=== PATIENT | female | born 1970 | race Caucasian/White ===

== ENCOUNTER → 2017-12-06 15:47 | Outpatient (CLI) | payer OTHER, SELFPAY ==
[2017-12-06 16:34] LABS: Absolute Lymphocyte Count 2.27 X10^3/ul (0.83-4.51); Absolute Neutrophil Count 3.3 X10^3/uL (2.0-7.7); Basophil# 0.04 X10^3/uL; Basophil% 0.7 % (0-1); Eosinophil# 0.03 X10^3/uL; Eosinophils% 0.5 % (0-5); Hematocrit 38.9 % (37-47); Hemoglobin 12.6 g/dl (12.0-15.0); Lymphocyte # 2.27 X10^3/ul (4.0); Lymphocyte % 37.5 % (19-41); Mean Corp Hgb Conc 32.4 g/gl (32-36); Mean Corpuscular Hgb 31.2 pg (27.0-32.0); Mean Corpuscular Volume 96.3 fL (81-99); Monocyte# 0.37 X10^3/uL; Monocyte% 6.1 % (0-10); Neutrophil # 3.34 X10^3/uL (2.7-7.7); Neutrophil % 55.2 % (47-70); Platelet Count 364 K/mm3 (150-450); RBC Distribution Width CV 12.2 % (11.6-14.6); Red Blood Count 4.04 M/mm3 (4.2-5.4); White Blood Count 6.1 K/mm3 (4.4-11.0)
[2017-12-06 16:41] LABS: POSITIVE COUNT NO; POSITIVE DIFFERENTIAL NO; POSITIVE MORPHOLOGY NO
[2017-12-06 17:06] LABS: ALB/GLOB Ratio 1.1 RATIO (0.9-2.4); AST(SGOT) 22 U/L (15-37); Alanine Aminotransfer ALT/SGPT 24 U/L (13-56); Alkaline Phosphatase 84 U/L (45-117); Anion Gap 6 (5-15); BUN 14 mg/dL (7-18); BUN/Creat Ratio 23.6 RATIO (10-20); Calcium,Total 9.1 mg/dL (8.5-10.1); Chloride 105 mmol/L (98-107); Creatinine, Serum 0.59 mg/dL (0.55-1.02); EST Glomerular Filtration Rate 114 mL/min (>60); Est Glom Filt Rate - Afr Amer 138 mL/min (>60); Globulin 3.8 g/dL (2.2-4.2); Glucose 82 mg/dL (74-106); Potassium 4.1 mmol/L (3.5-5.1); Protein, Total 7.8 g/dL (6.4-8.2); Sodium Level 139 mmol/L (136-145); Thyroid Stim Hormone (TSH) 1.42 uIU/mL (0.358-3.74)
== END ==
PROVIDERS: Visit Provider Family Medicine Geriatric Medicine
DX: I10 Essential (primary) hypertension (principal)
CPT/HCPCS: 36415; 80053; 84443; 85025

== ENCOUNTER → 2017-12-22 13:32 | Outpatient (CLI) | payer OTHER, SELFPAY ==
[2017-12-22 14:31] LABS: Amphetamine Urine VISTA NEGATIVE (<1000 ng/mL); Barbiturate Urine VISTA NEGATIVE (< 200 ng/mL); Benzodiazepine Urine VISTA NEGATIVE (< 200 ng/mL); Cocaine Urine VISTA NEGATIVE (< 300 ng/mL); Ecstacy Urine VISTA NEGATIVE (< 500 ng/mL); Methadone Urine VISTA NEGATIVE (< 300 ng/mL); PCP Urine VISTA NEGATIVE (< 25 ng/mL); THC Urine VISTA NEGATIVE (< 50 ng/mL); Vista UDS pH Range 5
== END ==
PROVIDERS: Family Provider Family Medicine Geriatric Medicine; PCP Family Medicine Geriatric Medicine; Visit Provider Anesthesiology Pain Medicine
DX: F11.20 Opioid dependence, uncomplicated (principal)
CPT/HCPCS: 80307

== ENCOUNTER → 2018-01-05 17:21 | Outpatient (CLI) | payer OTHER, SELFPAY | PROVIDERS: Visit Provider Obstetrics & Gynecology | DX: Z12.4 Encounter for screening for malignant neoplasm of cervix (principal) | CPT/HCPCS: 88175; G0145 ==

== ENCOUNTER → 2018-06-12 14:29 | Outpatient (CLI) | payer OTHER, SELFPAY | PROVIDERS: Family Provider Family Medicine Geriatric Medicine; PCP Family Medicine Geriatric Medicine; Referring Provider Family Medicine Geriatric Medicine; Visit Provider Family Medicine Geriatric Medicine | DX: R53.83 Other fatigue (principal) | CPT/HCPCS: 36415; 80053; 84443; 85025 ==

== ENCOUNTER → 2018-09-26 13:37 | Outpatient (CLI) | payer OTHER, SELFPAY ==
[2018-01-05 13:05] VITALS: BMI 23.0
[2018-09-26 14:12] LABS: Amphetamine Urine VISTA NEGATIVE (<1000 ng/mL); Barbiturate Urine VISTA NEGATIVE (< 200 ng/mL); Benzodiazepine Urine VISTA NEGATIVE (< 200 ng/mL); Cocaine Urine VISTA NEGATIVE (< 300 ng/mL); Ecstacy Urine VISTA NEGATIVE (< 500 ng/mL); Methadone Urine VISTA NEGATIVE (< 300 ng/mL); PCP Urine VISTA NEGATIVE (< 25 ng/mL); THC Urine VISTA NEGATIVE (< 50 ng/mL); Vista UDS pH Range 5
== END ==
PROVIDERS: Family Provider Family Medicine Geriatric Medicine; PCP Family Medicine Geriatric Medicine; Referring Provider Anesthesiology Pain Medicine; Visit Provider Anesthesiology Pain Medicine
DX: F11.20 Opioid dependence, uncomplicated (principal)
CPT/HCPCS: 80307

== ENCOUNTER → 2018-12-07 13:21 | Outpatient (CLI) | payer OTHER, SELFPAY ==
[2018-01-05 13:05] VITALS: BMI 23.0
[2018-12-07 17:29] LABS: ALB/GLOB Ratio 1.1 RATIO (0.9-2.4); AST(SGOT) 36 U/L (15-37); Alanine Aminotransfer ALT/SGPT 35 U/L (13-56); Alkaline Phosphatase 91 U/L (45-117); Anion Gap 8 (5-15); BUN 23 mg/dL (7-18); BUN/Creat Ratio 36.5 RATIO (10-20); Calcium,Total 9.3 mg/dL (8.5-10.1); Chloride 105 mmol/L (98-107); Creatinine, Serum 0.63 mg/dL (0.55-1.02); EST Glomerular Filtration Rate 106 mL/min (>60); Est Glom Filt Rate - Afr Amer 128 mL/min (>60); Globulin 3.6 g/dL (2.2-4.2); Glucose 79 mg/dL (74-106); Potassium 3.9 mmol/L (3.5-5.1); Protein, Total 7.6 g/dL (6.4-8.2); Sodium Level 141 mmol/L (136-145); Thyroid Stim Hormone (TSH) 0.82 uIU/mL (0.358-3.74)
[2018-12-07 18:08] LABS: Hematocrit 38.1 % (37-47); Hemoglobin 12.6 g/dl (12.0-15.0); Mean Corp Hgb Conc 33.1 g/gl (32-36); Mean Corpuscular Hgb 31.7 pg (27.0-32.0); RBC Distribution Width CV 12.7 % (11.6-14.6); Red Blood Count 3.97 M/mm3 (4.2-5.4); White Blood Count 6.2 K/mm3 (4.4-11.0)
[2018-12-07 18:09] LABS: Absolute Lymphocyte Count 2.21 X10^3/ul (0.83-4.51); Absolute Neutrophil Count 3.6 X10^3/uL (2.0-7.7); Basophil# 0.04 X10^3/uL; Basophil% 0.6 % (0-1); Eosinophil# 0.07 X10^3/uL; Eosinophils% 1.1 % (0-5); Lymphocyte # 2.21 X10^3/ul (4.0); Lymphocyte % 35.6 % (19-41); Mean Platelet Vol. 9.8 fl (6.2-12.0); Monocyte# 0.26 X10^3/uL; Monocyte% 4.2 % (0-10); Neutrophil # 3.62 X10^3/uL (2.7-7.7); Neutrophil % 58.3 % (47-70); POSITIVE COUNT NO; POSITIVE DIFFERENTIAL NO; POSITIVE MORPHOLOGY NO; Platelet Count 375 K/mm3 (150-450)
== END ==
PROVIDERS: Family Provider Family Medicine Geriatric Medicine; Visit Provider Family Medicine Geriatric Medicine
DX: R53.83 Other fatigue (principal)
CPT/HCPCS: 36415; 80053; 84443; 85025

== ENCOUNTER → 2019-01-15 | Outpatient (CLI) | payer OTHER, SELFPAY ==
[2018-01-05 13:05] VITALS: BMI 23.0
== END | disposition home or self-care (01) ==
LOC: PSN 14:12
PROVIDERS: Family Provider Family Medicine Geriatric Medicine; PCP Family Medicine Geriatric Medicine; Referring Provider Family Medicine Geriatric Medicine; Visit Provider Family Medicine Geriatric Medicine
DX: M79.10 Myalgia, unspecified site (principal)
CPT/HCPCS: 87633

== ENCOUNTER → 2019-12-10 14:05 | Outpatient (CLI) | payer OTHER, SELFPAY ==
[2019-10-26 13:18] VITALS: BMI 23.0
[2019-12-10 15:52] LABS: Absolute Lymphocyte Count 2.15 X10^3/uL (0.83-4.51); Absolute Neutrophil Count 2.3 X10^3/uL (2.0-7.7); Basophil# 0.07 X10^3/uL; Basophil% 1.4 % (0-1); Eosinophil# 0.03 X10^3/uL; Eosinophils% 0.6 % (0-5); Hematocrit 41.3 % (37-47); Hemoglobin 13.6 g/dL (12.0-15.0); Lymphocyte # 2.15 X10^3/ul (4.0); Lymphocyte % 44.5 % (19-41); Mean Corp Hgb Conc 32.9 g/dL (32-36); Mean Corpuscular Hgb 32.2 pg (27.0-32.0); Mean Corpuscular Volume 97.6 fL (81-99); Mean Platelet Vol. 10.6 fl (6.2-12.0); Monocyte# 0.32 X10^3/uL; Monocyte% 6.6 % (0-10); NRBC Flagged by Analyzer 0 % (0-5); Neutrophil # 2.25 X10^3/uL (2.7-7.7); Neutrophil % 46.7 % (47-70); Platelet Count 310 K/mm3 (150-450); RBC Distribution Width CV 12.1 % (11.6-14.6); RBC Distribution Width SD 43.3 fl (35.1-43.9); Red Blood Count 4.23 M/mm3 (4.2-5.4); White Blood Count 4.8 K/mm3 (4.4-11.0)
[2019-12-10 16:14] LABS: ALB/GLOB Ratio 1.1 RATIO (0.9-2.4); AST(SGOT) 28 U/L (15-37); Alanine Aminotransfer ALT/SGPT 34 U/L (13-56); Albumin, Serum 4.3 g/dL (3.2-5.0); Alkaline Phosphatase 89 U/L (45-117); Anion Gap 7 (5-15); BUN 11 mg/dL (7-18); BUN/Creat Ratio 19.2 RATIO (10-20); Calcium,Total 9.8 mg/dL (8.5-10.1); Chloride 102 mmol/L (98-107); Creatinine, Serum 0.57 mg/dL (0.55-1.02); EST Glomerular Filtration Rate 118 mL/min (>60); Est Glom Filt Rate - Afr Amer 143 mL/min (>60); Glucose 82 mg/dL (74-106); Potassium 3.9 mmol/L (3.5-5.1); Protein, Total 8.3 g/dL (6.4-8.2); Sodium Level 138 mmol/L (136-145); Thyroid Stim Hormone (TSH) 1.31 uIU/mL (0.358-3.74)
== END ==
PROVIDERS: PCP Family Medicine Geriatric Medicine; Visit Provider Family Medicine Geriatric Medicine
DX: R53.83 Other fatigue (principal)
CPT/HCPCS: 36415; 80053; 84443; 85025

== ENCOUNTER → 2019-12-21 09:40 | Outpatient (CLI) | payer OTHER, SELFPAY ==
[2019-10-26 13:18] VITALS: BMI 23.0
--- NOTE | 2019-12-21 09:49 | BI_ITS ---
MAMMOGRAPHY - BILATERAL SCREENING REASON FOR EXAM: Female, 49 years old. Routine annual screening examination. PERTINENT HISTORY: Aunt with breast cancer. TECHNIQUE: Digital bilateral breast tesfaye (3D mammographic acquisition) in the CC and MLO projections. 2-D mediolateral oblique (MLO) and craniocaudad (CC) views of both breasts were obtained. CAD: Full Field Digital Mammography with Computer Added Detection was performed. COMPARISON: Comparison is made with prior study dated February 12, 2013. FINDINGS: Breast Composition: There are scattered areas of fibroglandular density. There are no dominant masses or suspicious calcifications. No other significant abnormalities are identified. There has been no significant change since the prior study. BI/SCREEN MAMM (CAD) W/TESFAYE BILAT IMPRESSION: Stable bilateral screening mammogram. Yearly follow-up mammogram recommended. (A) ASSESSMENT CATEGORY: BIRADS Category 1: Negative. A letter regarding these results will be sent to the patient by the facility within 30 days. Approximately 10% of breast cancers are not detected by mammography. A normal mammogram should not delay biopsy of a clinically suspicious abnormality. [id number] Electronically Signed: Vidal Álvarez, at 12:42 EDT , Service support ,
== END ==
PROVIDERS: PCP Family Medicine Geriatric Medicine; Referring Provider Family Medicine Geriatric Medicine; Visit Provider Family Medicine Geriatric Medicine
DX: Z12.31 Encounter for screening mammogram for malignant neoplasm of breast (principal)
CPT/HCPCS: 77063; 77067

== ENCOUNTER 2020-02-08 09:51 | Day surgery (SDC) | payer OTHER, SELFPAY ==
[2020-01-18 08:33] VITALS: BMI 23.0
[2020-02-08] VITALS (7 sets, daily range): BP systolic 135–162; BP diastolic 88–97; PULSE 68–85; RESP 15–18; TEMP 36.6; O2SAT 99–100; BMI 25.0
--- NOTE | 2020-02-08 10:12 | HP.PCM_ITS ---
History of Present Illness Date of Admission: 02/08/20 The patient is a 49 year old F presents for a diagnostic colonoscopy due to positive Cologuard test. Patient was previously seen on a virtual office visit. Patient states she has bowel movements daily denies any blood in her stool, patient has never had a colonoscopy denies any family history of colon cancer. Patient denies any symptoms of reflux/GERD and denies any abdominal pain. Patient states that prep went well denies any blood in her stool. Past Medical/Surgical History - Planned Operation Planned Operative Procedure/s: COLONOSCOPY Date of Operative Procedure: 02/08/20 Permit Signed: Yes S.O.S: No Is This Patient Having a Total Joint: No - Previous Hospitalizations/Surgeries HX Hospitalizations: Yes HX of Surgeries: MICRODISCECTOMY 2002. BACK SURGERY 2004. PLATE IN CLAVICLE 2005, REMOVAL 2006. 2010 REMOVAL SOFT TISSUE MASS LEFT GROIN. 07/26/2016 LAPAROSCOPIC LEFT OVARIAN CYSTECTOMY, SALPING-OOPHORECTOMY LEFT. L ELBOW ARTHROSCOPY, LATERAL EPICONDRYLAR RELEASE 02/2017 Any Problems With Anesthesia: No You/Your Family Experience Fever (Hyperthermia) With Anes: No Cholinesterase deficiency: No - Cardiovascular Hx Chest Pain within Last 2 months: No Hx of Irregular Heartbeat and/or Afib: No Hx Heart Attack: No Hx Congestive Heart Failure: No Hx Rheumatic Fever: No Hx Hypertension: No Hx Internal Defibrillator: No Hx Pacemaker: No Hx Cardiac Catheterization: No Hx Cardiac Surgery/Stents/Etc.: No Hx Stress Test: No HX Edema: No Hx Pain in Legs when Walking/Leg Cramps: No - Respiratory Chronic Cough: No HX of Shortness of Breath: No Hoarseness: No Hx Chronic Obstructive Pulmonary Disease (COPD): No Hx Asthma: No Hx Emphysema: No Hx Sleep Apnea: No CPAP: No Hx Oxygen Use at Home: No Hx Respiratory Tract Infection/Cold (presently): No Do You Snore Loudly (louder than talking or can be heard): No Do You Often Feel Tired/ Fatigued/ Sleepy Dring Daytime?: No Has Anyone Observed You Stop Breathing During Sleep?: No Result (for STOP score): Negative Hx Smoking: Yes - QUIT SMOKING OCT 2015 Smoking Status: Former smoker - Gastrointestinal Hx Gastroesophageal Reflux: No Hx Gastrointestinal Disorders: No Hx Gastrointestinal Bleed: No Hx Ulcer: No Hx Hiatal Hernia: No Difficulty Chewing/Swallowing: No Recent Onset of Swallowing Problems: No Special diet followed at home: No Hx Unplanned Weight Loss of 20#: No HX Unplanned Weight Gain of 20#: No - Neurological Hx Seizures: No HX Syncope/Blackout Spells/Unconsciousness: No Hx CVA/Stroke: No Hx Transient Ischemic Attacks (TIA): No Hx Multiple Sclerosis: No Hx Parkinson's Disease: No Hx Head/Neck Injury: Yes - CONCUSSION PER HX,CERVICAL BULGING DISC Hx Headaches: No Hx Back Injury/Pain: Yes - DEGENERATIVE DISC, BULGE DISC, BACK SURGERY Recent Onset of Speech Difficulty: No Restless Legs: No Does patient have nerve stimulator: No - Blood Disorder Hx Leukemia: No Bleeding Tendencies: No Hx Deep Vein Thrombosis: No Hx High Cholesterol: No Blood Transmitted Disease: No Hx Hepatitis: No Hx Cirrhosis: No Hx Anemia: No Hx Blood Disorders: No - Reproduction : No Is Patient Lactating: No Hx Hysterectomy: No Hx Tubal Ligation: No Are You Post Menopause: Yes - Genitourinary Hx Renal Disease: No - Musculoskeletal Hx Arthritis: Yes Hx Rheumatoid Arthritis: No Hx Gout: No Recent Onset of an Orthopedic Problem: No - Endocrine Hx Diabetes: No Thyroid Disease: No Hx Steroid Therapy: Yes - PAIN MANAGEMENT - Psycho/Social Hx Substance Use: No Hx Alcohol Use: No Hx Anxiety: Yes - ON MED Hx Depression: No Mental Illness: No Hx Dementia: No - Miscellaneous Hx Cancer: No Recent Exposure to Contagious Disease: No Active MRSA: No Hx of C-Diff: No Any Loose Teeth: No Allergies cephalexin [From Keflex] Allergy (Verified 02/08/20 10:11) Rash - Discharge Is Pt Admitted From a [facility], or a Halfway: No Who Could Help: FATHER After D/C, Where Do you Plan to Go: Return Home - Physical Exam Vitals/I&O's: Body Mass Index (BMI) 23.0 General: Alert, Oriented x3, Cooperative, No apparent distress HEENT: Atraumatic Lungs: Normal air movement Cardiovascular: Regular rate Abdomen: Soft, Non Tender, Non-Distended Extremities: No clubbing, No cyanosis, No edema Neurological: Cranial nerves II-XII grossly intact Psych/Mental Status: Normal Affect Microbiology Past 72 Hours 02/07/20 11:35 Mucosa - Nasopharyngeal Coronavirus COVID-19 PCR - Final Assessment/Plan All Active Problems (Last Updated 01/18/20 @ 08:31 by Torrie Jaramillo) Endometriosis (Acute) Ovarian cyst (Acute) 49-year-old female with positive Cologuard Procedure Criteria Procedure Type: Elective Procedure Essential: No COVID Risk Discussion: The surgeon/proceduralist and patient have discussed in detail the risk of exposure to and/or potential harm posed by the COVID-19 virus with having a surgery/procedure at this time versus the risk of delaying the surgery/procedure. It is not possible to know either the risk of delaying the surgery or procedure or chance of getting an infection with perfect accuracy, but a joint decision was made between the patient and the surgeon/proceduralist to proceed at this time with the scheduled surgery/procedure as indicated on the consent form. Surgery Risks - Colonoscopy I discussed with the patient the risks of the procedure: Yes Risks Include but are not Limited To: Risks include but are not limited to: Bleeding, perforation requiring further surgery, inability to complete colonoscopy requiring barium enema. Patient no further questions this time.
[2020-02-08] MEDS: Lactated Ringers 1,000 ML 100 ML IV (10:20)
--- NOTE | 2020-02-08 11:00 | COLBX_PTH ---
PATIENT: FEDE HERZOG LOC: EN U#:[id number] AGE/SX: 49/F ROOM: RE02/08/[address]: Dr. Em Hazel MD : 1970 BED: DIS: 02/08/2020 SPEC #: [id number] RECD: 02/08/20 13:18 STATUS: FERCHO RENely #: [id number] LUDA: 02/08/20 11:[address]: Em Hazel DEPT: SURGICAL PATHOLOGY RECD BY: Fred Key ENTERED: 02/11/20 09:24 SP TYPE: COLON BX OTHR DR: Dr. Carrillo Driscoll MD Tissues: A - Appendix, NOS B - Descending colon Procedures: Surgery Specimen Level IV HEADER OPERATION: Colonoscopy (MAC) PRE-OP DIAGNOSIS: Positive Cologuard TISSUE SUBMITTED: A - Appendiceal orifice biopsy, B - Descending polyp MICROSCOPIC DIAGNOSIS A. Appendiceal orifice, biopsy: Fragments of tubular adenoma. Negative for malignancy. B. Descending colon polyp, biopsy: Tubular adenoma. SJ:moody 02/12/20 COMMENT Correlation with clinical, endoscopic findings and appropriate follow up are necessary. The results are reported to Dr. Hazel's office on 02/12/20 at 9:12 a.m. MICROSCOPIC DESCRIPTION Slides are reviewed. GROSS DESCRIPTION A - Received in fixative is one container labeled with the patient's name and designated Appendiceal orifice biopsy. The specimen consists of multiple irregular fragments of light crawford soft tissue that in aggregate measure 1.3 x 0.6 x 0.1 cm. The specimen is totally submitted in one cassette. B - Received in fixative is one container labeled with the patient's name and designated descending polyp. The specimen consists of one irregular fragment of light crawford soft tissue that measures 0.4 x 0.2 x 0.1 cm. The specimen is totally submitted in one cassette. / AM:moody 02/11/20 TC:1 CPT: 38112 x2
--- NOTE | 2020-02-08 11:28 | CT_ITS ---
STUDY: CT CHEST WITH CONTRAST REASON FOR EXAM: Female, 49 years old. MASS AT APPENDICEAL ORIF JOSE RADIATION DOSAGE (If Supplied By Facility): CTDIvol = ( 10.47 ) mGy, DLP = ( 1087.35 ) mGycm TECHNIQUE: Transaxial imaging was performed following intravenous administration of Oral and amp; IV GASTROGRAFIN and amp; 100ML ISOVUE 370. Individualized dose optimization techniques were used for this CT. COMPARISON: Comparison is made with prior study dated March 01, 2013. FINDINGS: Mild degree of the emphysematous changes. Stable minimal scarring in the anterior medial aspect of the right upper lobe. There is no demonstrated pleural abnormality. Normal heart and pericardium. Normal mediastinum. Normal hilar regions. Normal enhanced pulmonary arteries. Normal aorta arch and descending thoracic aorta. There are mild degenerative changes of the thoracic spine. There is no demonstrated abnormality of the visualized upper abdomen. CT/Chest WITH Contrast IMPRESSION: Stable minimal scarring in the medial aspect of the left upper lobe. Electronically Signed: Vidal Álvarez, at 15:07 EDT , Service support ,
--- NOTE | 2020-02-08 11:29 | CT_ITS ---
STUDY: CT ABDOMEN AND PELVIS WITH CONTRAST REASON FOR EXAM: Female, 49 years old. MASS AT APPENDICEAL ORIFICE RADIATION DOSAGE (If Supplied By Facility): CTDIvol = ( 10.47 ) mGy, DLP = ( 1087.35 ) mGycm TECHNIQUE: Transaxial images were obtained from the dome of the diaphragm to the symphysis pubis with oral contrast. Oral and amp; IV GASTROGRAFIN and amp; 100ML ISOVUE 370 was administered. Sagittal and coronal images were reconstructed. Individualized dose optimization techniques were used for this CT. COMPARISON: Comparison is made with prior examination dated June 30, 2016. FINDINGS: The visualized lung bases are unremarkable. The visualized portions of the heart are within normal limits. Normal liver. Normal gallbladder and extrahepatic biliary system. Normal spleen. Normal pancreas. Normal bilateral adrenal glands. Normal right kidney. Normal left kidney. Normal visualized stomach. Normal small intestine. Normal colon. The appendix is visualized and appears normal. There is scattered atherosclerotic calcification of the abdominal aorta, without a demonstrated aneurysm. Normal inferior vena cava. Normal retroperitoneum. Normal urinary bladder. Normal abdominal wall. Prior laminectomy and fusion at the L4-L5 level. CT/Abdomen/Pelvis WITH Contrast IMPRESSION: No acute abnormality is seen. Electronically Signed: Vidal Álvarez, at 15:05 EDT , Service support ,
--- NOTE | 2020-02-08 11:39 | OP.COLON_ITS ---
Patient Name: Arti Luis Procedure Date: 02/08/2020 10:36 AM Date of : 1970 Age: 49 Procedure: Colonoscopy Indications: Positive Cologuard test Providers: Em Hazel MD Referring MD: Carrillo Driscoll MD Medicines: Monitored Anesthesia Care Patient Profile: This is a 49 year old female. Last Colonoscopy: none. The patient's first colonoscopy is today. Complications: No immediate complications. Procedure: Pre-Anesthesia Assessment: - Prior to the procedure, a History and Physical was performed, and patient medications and allergies were reviewed. The patient's tolerance of previous anesthesia was also reviewed. The risks and benefits of the procedure and the sedation options and risks were discussed with the patient. All questions were answered, and informed consent was obtained. Prior Anticoagulants: The patient has taken no previous anticoagulant or antiplatelet agents. ASA Grade Assessment: Per anesthesia. After reviewing the risks and benefits, the patient was deemed in satisfactory condition to undergo the procedure. After I obtained informed consent, the scope was passed under direct vision. Throughout the procedure, the patient's blood pressure, pulse, and oxygen saturations were monitored continuously. The colonoscope was introduced through the anus and advanced to the cecum, identified by the appendiceal orifice, ileocecal valve and palpation. The colonoscopy was somewhat difficult due to a redundant colon and a tortuous colon. Successful completion of the procedure was aided by applying abdominal pressure. The patient tolerated the procedure well. The quality of the bowel preparation was good. Scope In: 10:53:10 AM Scope Withdrawal Time 0 hours 12 minutes 12 seconds Scope Out: 11:22:00 AM Total Procedure Duration Time 0 hours 28 minutes 50 seconds Findings: The perianal and digital rectal examinations were normal. A frond-like/villous maybe partially obstructing mass was found appendiceal orifice. The mass was circumferential. No bleeding was present. Biopsies were taken with a cold forceps for histology. A less than 5 mm polyp was found in the descending colon. The polyp was semi-sessile. The polyp was removed with a hot snare. Resection and retrieval were complete. The exam was otherwise without abnormality. Impression: - Rule out malignancy, maybe partially obstructing tumor at the appendiceal orifice. Biopsied. - One less than 5 mm polyp in the descending colon, removed with a hot snare. Resected and retrieved. - The examination was otherwise normal. Recommendation: - Discharge patient to home. - Will discuss with pt will keep on liquids may have less of a prep required for surgery [Duration]. - Continue present medications. - Await pathology results. - Check hemogram with white blood cell count and platelets today. - Check CEA today. - Perform a CT scan (computed tomography) of chest with contrast, abdomen with contrast and pelvis with contrast today. - Check liver enzymes (AST, ALT, alkaline phosphatase, bilirubin) and electrolyte panel today. - Repeat colonoscopy is recommended for surveillance. The colonoscopy date will be determined after pathology results from today's exam become available for review. Procedure Code(s): --- Professional --- 80324, Colonoscopy, flexible; with removal of tumor(s), polyp(s), or other lesion(s) by snare technique 78709, 59, Colonoscopy, flexible; with biopsy, single or multiple Diagnosis Code(s): --- Professional --- D49.0, Neoplasm of unspecified behavior of digestive system D12.4, Benign neoplasm of descending colon R19.5, Other fecal abnormalities CPT copyright 2017 [employer]. All rights reserved. The codes documented in this report are preliminary and upon habitat biologist review may be revised to meet current compliance requirements. MD Em Loyola MD 02/08/2020 11:39:05 AM This report has been signed electronically. Number of Addenda: 0 Note Initiated On: 02/08/2020 10:36 AM
--- NOTE | 2020-02-08 11:39 | OP.CCLET_ITS ---
02/08/2020 Carrillo Driscoll MD [address] [place] [address] Re : Colonoscopy procedure for Arti Toby Dear Dr. Driscoll This procedure was performed on Saturday, February 08, 2020. My impressions and recommendations are as follows: Impressions : - Rule out malignancy, maybe partially obstructing tumor at the appendiceal orifice. Biopsied. - One less than 5 mm polyp in the descending colon, removed with a hot snare. Resected and retrieved. - The examination was otherwise normal. Recommendations : - Discharge patient to home. - Will discuss with pt will keep on liquids may have less of a prep required for surgery [Duration]. - Continue present medications. - Await pathology results. - Check hemogram with white blood cell count and platelets today. - Check CEA today. - Perform a CT scan (computed tomography) of chest with contrast, abdomen with contrast and pelvis with contrast today. - Check liver enzymes (AST, ALT, alkaline phosphatase, bilirubin) and electrolyte panel today. - Repeat colonoscopy is recommended for surveillance. The colonoscopy date will be determined after pathology results from today's exam become available for review. My findings are described in the full procedure note, which is enclosed. If I can be of further assistance, please feel free to contact me at Doctor phone number(s): , Work: . Sincerely, MD Em Loyola MD 02/08/2020 11:39:05 AM This report has been signed electronically.
[2020-02-08 12:11] LABS: Absolute Lymphocyte Count 2.37 X10^3/uL (0.83-4.51); Absolute Neutrophil Count 2.8 X10^3/uL (2.0-7.7); Basophil# 0.05 X10^3/uL; Basophil% 0.9 % (0-1); Eosinophil# 0.02 X10^3/uL; Eosinophils% 0.4 % (0-5); Hematocrit 41.3 % (37-47); Hemoglobin 13.6 g/dL (12.0-15.0); Lymphocyte # 2.37 X10^3/ul (4.0); Lymphocyte % 41.9 % (19-41); Mean Corp Hgb Conc 32.9 g/dL (32-36); Mean Corpuscular Hgb 32.1 pg (27.0-32.0); Mean Corpuscular Volume 97.4 fL (81-99); Mean Platelet Vol. 10.1 fl (6.2-12.0); Monocyte# 0.45 X10^3/uL; NRBC Flagged by Analyzer 0 % (0-5); Neutrophil # 2.76 X10^3/uL (2.7-7.7); Neutrophil % 48.6 % (47-70); Platelet Count 368 K/mm3 (150-450); RBC Distribution Width SD 42.8 fl (35.1-43.9); Red Blood Count 4.24 M/mm3 (4.2-5.4); White Blood Count 5.7 K/mm3 (4.4-11.0)
--- NOTE | 2020-02-08 12:17 | PCM.PN.BLA ---
Progress Note Did discuss with the patient and her father colonoscopy results. There was circumferential mass at the appendiceal orifice which may have been partially obstructing did take biopsies with this area. Also removed another small polyp completely from the descending colon. Suspicious for malignancy at the appendiceal orifice and also unable to her removed completely laparoscopically as it could also go into the appendix. Will be getting CBC, CMP, CEA, CT chest abdomen pelvis. Discussed with patient would plan for a laparoscopic right hemicolectomy as even if the biopsies may not be cancerous if I only did an ileocecectomy to remove the appendix it would still require anastomosis and the final pathology could show something different in the appendix so would have to go back and do an additional surgery. Patient was agreeable to proceed with a laparoscopic right hemicolectomy we will plan to schedule early next week currently scheduled Tuesday at 7:30 AM; hopefully will have some pathology back by then but even if we do not have pathology that area is under able to be removed completely endoscopically. Did discuss with patient bowel prep antibiotics for the eras protocol. Also discussed should be getting retested for COVID. Discussed procedure including but not limited to risk of bleeding, infection, need for further treatment if this were to be cancerous and in the lymph nodes, injury to another organ (i.e. small bowel,colon & ureter), and etc. Patient will get the labs and CAT scans today will call patient with results. Patient is agreeable to stay mostly on a liquid diet so we do not have to do as much of a bowel prep the day before surgery will plan to just do the Dulcolax with magnesium citrate instead of the MiraLAX. STROKE Vital Signs/Narrative: Vital Signs Temp Pulse Resp BP Pulse Ox 02/08/20 11:57 97.9 F 68 16 156/97 H 100 02/08/20 11:45 68 16 148/95 H 100 02/08/20 11:40 68 16 158/89 H 100 02/08/20 11:35 77 18 162/94 H 100 02/08/20 11:31 97.8 F 80 18 150/94 H 100 02/08/20 10:11 97.8 F 85 15 135/88 H 99
[2020-02-08 12:24] LABS: Anion Gap 9 (5-15); BUN 10 mg/dL (7-18); BUN/Creat Ratio 15.3 RATIO (10-20); Calcium,Total 9.5 mg/dL (8.5-10.1); Chloride 105 mmol/L (98-107); Creatinine, Serum 0.65 mg/dL (0.55-1.02); EST Glomerular Filtration Rate 101 mL/min (>60); Est Glom Filt Rate - Afr Amer 123 mL/min (>60); Estimated Creatinine Clearance 103.29 ml/min; Glucose 98 mg/dL (74-106); Potassium 3.6 mmol/L (3.5-5.1); Sodium Level 139 mmol/L (136-145)
[2020-02-08 12:35] LABS: AST(SGOT) 38 U/L (15-37); Alanine Aminotransfer ALT/SGPT 36 U/L (13-56); Albumin, Serum 4.5 g/dL (3.2-5.0); Alkaline Phosphatase 89 U/L (45-117); Bilirubin, Direct 0.13 mg/dL (0.00-0.30); Protein, Total 8.5 g/dL (6.4-8.2)
[2020-02-11 00:26] LABS: Carcinoembryonic Antigen 3.4 ng/mL (0.0-4.7)
== END 2020-02-08 14:01 | disposition home or self-care (01) ==
LOC: EN 09:52 → AC 09:53
PROVIDERS: PCP Family Medicine Geriatric Medicine; Referring Provider Family Medicine Geriatric Medicine; Visit Provider Surgery
PROC: 0DJD8ZZ Inspection of Lower Intestinal Tract, Via Natural or Artificial Opening Endoscopic (ICD-10-PCS; CPT 45378; principal; 2020-02-08 10:55)
DX: D12.4 Benign neoplasm of descending colon (principal); Z11.59 Encounter for screening for other viral diseases; M19.90 Unspecified osteoarthritis, unspecified site; F41.9 Anxiety disorder, unspecified; N80.9 Endometriosis, unspecified; Z79.899 Other long term (current) drug therapy; Z87.891 Personal history of nicotine dependence
CPT/HCPCS: 45380; 45385; 36415; 71260; 74177; 80048; 80076; 82378; 85025; 87635; 88305; G2023; J7120; Q9967; J2405; U0004

== ENCOUNTER 2020-02-12 05:29 | Inpatient (IN) | payer OTHER, SELFPAY ==
[2020-02-08 10:11] VITALS: BMI 25.0
--- NOTE | 2020-02-11 11:15 | EKG12_ITS ---
Test Reason : PREOP Blood Pressure : / mmHG Vent. Rate : 069 BPM Atrial Rate : 069 BPM P-R Int : 136 ms QRS Dur : 084 ms QT Int : 430 ms P-R-T Axes : 072 071 091 degrees QTc Int : 460 ms Normal sinus rhythm Normal ECG Confirmed by WILLIAM NEVAREZ, CASSIE ([id number]), editor newspaper FELICIANO ZARATE ([id number]) on 02/12/2020 1:47:20 PM Referred By: Em Hazel Confirmed By:CASSIE THOMAS MD
[2020-02-12] VITALS (14 sets, daily range): BP systolic 111–171; BP diastolic 66–89; PULSE 62–82; RESP 14–18; TEMP 36.2–37.1; O2SAT 98–100; BMI 24.5
--- NOTE | 2020-02-12 | COL._PTH ---
PATIENT: FEDE HERZOG LOC: MS3 U#:[id number] AGE/SX: 49/F ROOM: MS317 RE02/12/[address]: Dr. Em Hazel MD : 1970 BED: 1 DIS: 02/14/2020 SPEC #: [id number] RECD: 02/12/20 12:07 STATUS: FERCHO RENely #: [id number] LUDA: 02/12/20 00:[address]: Em Hazel DEPT: SURGICAL PATHOLOGY RECD BY: Avelino Carson ENTERED: 02/12/20 12:08 SP TYPE: COLON OTHR DR: Dr. Carrillo Driscoll MD Tissues: Colon, NOS Procedures: Surgery Specimen Level V HEADER OPERATION: ERAS, laparoscopic right hemicolectomy PRE-OP DIAGNOSIS: Appendiceal orifice mass vs polyp TISSUE SUBMITTED: Right colon MICROSCOPIC DIAGNOSIS Right colon, segment colectomy: Tubular adenoma of cecum/appendiceal orifice. Mild benign lymphoid hyperplasia of small bowel. Margins of excision with no pathologic change. 24 out of 24 lymph nodes with no pathologic change. AM:moody 02/14/20 COMMENT Case has been reviewed in consultation with Dr. Hernandez who concurs with the above diagnosis. IDC:SJ MICROSCOPIC DESCRIPTION Slides are reviewed. GROSS DESCRIPTION Received in fixative is one container labeled with the patient's name and designated right colon. The specimen consists of a 28 cm segment of large bowel with attached 3.5 cm segment of small bowel and attached appendix measuring 5.5 cm in length and 0.8 cm in average diameter. Also present in the specimen container is a 6 x 2.5 cm segment of bowel. A cauliflower-like mass measuring 1.3 x 1 x 0.9 cm is present at the orifice of the appendix. The remainder of the large and small bowel mucosa is grossly unremarkable. The ileocecal valve is grossly unremarkable. No extension of the mass through bowel wall or attached soft tissue is identified. A crawford, fibrofatty tissue contains a number of grossly unremarkable nodules resembling lymph nodes. The serosa in the area of the mass is inked. Serial sections of the segment of bowel do not reveal mass lesions. A portion separate of bowel measuring 20 x 12 cm is also identified and is free of mass lesions. Public Health Technologist sections are submitted as follows: 1??mucosal margins, 2 - separate segment of bowel and ileocecal valve, 3 - uninvolved small and large bowel, 4 & 5 - mass at orifice of appendix, 6 & 7 - remainder of appendix, 8 - one lymph node bisected, 9-12 - multiple lymph nodes in each cassette. / AM:moody 02/13/20 TC:1 CPT: 00577
[2020-02-12] MEDS: Ciprofloxacin 400 MG/200 ML BAG 200 MG IV (06:12)
[2020-02-12] MEDS: Lactated Ringers 1,000 ML 40 ML IV ×2 (06:12→21:45)
[2020-02-12] MEDS: Gabapentin 600 MG Tablet PO (06:13)
[2020-02-12] MEDS: Acetaminophen 500 MG Tablet 1000 MG PO ×4 (06:13→23:15)
[2020-02-12 06:40] LABS: Bedside Glucose 89 mg/dL (70-110)
--- NOTE | 2020-02-12 07:21 | PCM.HP.STD ---
History of Present Illness Date of Admission: 02/12/20 The patient is a 49 year old F presents for a laparoscopic right hemicolectomy due to appendiceal orifice mass/polyp. Pathology is still pending from her colonoscopy on Tuesday. Patient recently had a positive Cologuard. Patient did complete prep and antibiotics preoperatively. Patient denies any family history of colon cancer. Denies any history of abdominal pain. CT chest abdomen pelvis done for possible staging did not find any signs of metastatic disease. Past Medical History Medical History: Medical History (Last Updated 01/18/20 @ 08:31 by Torrie Jaramillo) Endometriosis (Acute) N80.9 Anxiety F41.9 Back pain M54.9 Allergies cephalexin [From KeImperva] Allergy (Verified 02/12/20 06:00) Rash Home Medications: Ambulatory Orders Medication Instructions Recorded Duloxetine Hcl [Cymbalta] 30 mg PO DAILY 07/19/16 Multivitamins,Therapeutic 1 tab PO DAILY 07/19/16 [Multivitamin] acetaminophen 300 mg-codeine 30 mg 1 tab PO Q6H PRN 01/18/20 tablet meloxicam 15 mg tablet 15 mg PO DAILY 01/18/20 tizanidine 4 mg capsule 4 mg PO QHS 01/18/20 Metronidazole 500 mg PO X1 02/12/20 Neomycin Sulfate [Neomycin] 500 mg PO X1 02/12/20 Surgical History: Surgical History (Last Reviewed 01/18/20 @ 08:31 by Torrie Jaramillo) H/O elbow surgery Z98.890 bilat H/O shoulder surgery Z98.890 History of back surgery Z98.890 History of left oophorectomy Z90.721 clavicle surgery Smoking Status: Former smoker Tobacco Use: Non-smoker Review of Systems Constitutional: Denies: Anorexia VTE Information - Inpt Only VTE Present on Admission: Yes VTE Mechan Device Prophylaxis: SCD's - Physical Exam Vitals/I&O's: Vital Signs Temp Pulse Resp BP Pulse Ox 98.5 F 71 16 140/78 H 99 02/12/20 06:02 02/12/20 06:02 02/12/20 06:02 02/12/20 06:02 02/12/20 06:02 Oxygen Delivery Method Room Air Weight: 161 lb 13.109 oz Body Mass Index (BMI) 24.5 General: Alert, Oriented x3, Cooperative, No apparent distress HEENT: Atraumatic Lungs: Normal air movement Cardiovascular: Regular rate Abdomen: Soft, Non Tender, Non-Distended Extremities: No clubbing, No cyanosis, No edema Neurological: Cranial nerves II-XII grossly intact Psych/Mental Status: Normal Affect Laboratory Results 02/11/20 11:50: COVID-19 ([facility]) Not Detected 02/12/20 06:10: POC Glucose 89 02/12/20 06:40: Magnesium 2.0 Current Medications Ciprofloxacin (Cipro) 400 mg in 200 mls @ 200 mls/hr IV PREOP ONE Stop: 02/12/20 07:59 Last Admin: 02/12/20 06:12 Dose: 200 mls/hr Documented by: Metronidazole (Flagyl) 500 mg in 100 mls @ 100 mls/hr IV PREOP ONE Stop: 02/12/20 07:59 Lactated Ringer's () 1,000 mls @ 40 mls/hr IV .Q25H DEEPAK Last Admin: 02/12/20 06:12 Dose: 40 mls/hr Documented by: Insulin Human Lispro (Humalog Kwikpen (Bkc)) 0 unit SC Q4H PRN PRN; Protocol PRN Reason: BG >/= 180, SEE PROTOCOL Insulin Human Lispro (Humalog Kwikpen (Bkc)) 1 - 6 unit SC Q4H PRN PRN; Protocol PRN Reason: BG>/= 180, SEE PROTOCOL Assessment/Plan All Active Problems (Last Updated 01/18/20 @ 08:31 by Torrie Jaramillo) Endometriosis (Acute) Ovarian cyst (Acute) 49-year-old female with a appendiceal orifice mass/polyp Did discuss the anatomy and procedure: laparoscopic right jabier-colectomy, possible open with the patient. Including risks, but not limited to, bleeding, infection (superficial or intraabdominal), injury to another organ (small bowel, colon, ureter, etc.) requiring additional procedures, and blood clots. Also, discussed the pre-op, colon prep and antibiotics. All questions were answered. Em Hazel M.D. Pager: [phone] [facility] [address] [place] [address], [facility], [address] [place] [address] Office: [phone] Procedure Criteria Procedure Type: Essential Procedure Essential: Yes Criteria Statement: On 11/27/2019 the [place] Department of Health ([facility]) Public Order signed by [facility] Director Pearl Lal M.D., regarding the Management of Non-Essential Surgeries and Procedures for the purpose of preserving Personal Protective Equipment (PPE) and critical hospital capacity and resources within [place] went into effect as of 11/28/2019 at 5:00PM. According to the [facility] Public Order: This action will remain in full force and effect until the State of Emergency declared by the Governor no longer exists or the Director of the [facility] rescinds or modifies this Order. This [facility] order stated all non-essential or elective surgeries and procedures that utilize PPE should be delayed unless there is undue risk to the current or future health of a patient. After reviewing the aforementioned [facility] Public Order and the patient's clinical case, I have determined that the scheduled procedure meets the criteria to go forward. Risk to Patient if Procedure Delayed: Risk of metastasis or progression of staging if delayed
[2020-02-12] MEDS: metroNIDAZOLE 500 MG/100 ML BAG 100 MG IV (07:50)
[2020-02-12] MEDS: BUPIVACAINE LIPOSOME/PF 20 ML VIAL OPERA.SITE (09:59)
[2020-02-12] MEDS: Bupivacaine 0.25% 30 ML Vial ×2 (09:59)
[2020-02-12] MEDS: 0.9% Normal Saline (Pres. free 10 ML Vial (09:59)
--- NOTE | 2020-02-12 10:25 | OP.PCM_ITS ---
Report of Operation Date of Procedure: 02/12/20 Pre-Operative Diagnosis: Appendiceal orifice mass versus polyp Post-Operative Diagnosis: Same Surgery/Procedure Performed:: Laparoscopic right hemicolectomy clinical nursing director: Yenifer Ashton Anesthesiologist: Thiago Foley Special Medications: Cipro 400 mg IV and Flagyl 500 mg IV Specimen's removed: Right colon Drains: dumont 180 cc Estimated Blood Loss (mL): 20 cc Fluids Replaced: 1500 cc Description of Procedure: Indications this is a 49-year-old female who initially had a positive Cologuard underwent a colonoscopy where she had a transverse polyp at her appendiceal orifice circumferential. Laparoscopic right hemicolectomy was elected.. Description procedure: The patient was placed on operating table in supine position. General Anesthesia was induced. A timeout was completed verifying correct patient, procedure, site, position and special equipment prior to beginning procedure. An orogastric tube was placed. The abdomen was prepped and draped in usual sterile fashion. An incision was made in the natural skin line above the umbilicus. The fascia was elevated and incised. The peritoneum was elevated and incised. Entry into the peritoneum was confirmed visually and no bowel was noted in the vicinity of the incision. Mclain trocar was placed. The abdomen was insufflated with carbon dioxide to a pressure of 12-15 mmHg. Patient tolerated insufflation well. The laparoscope was then inserted and abd omen inspected. No injuries from initial trocar placement were noted. Additional trochars were then inserted in the following locations 5 mm trocar in the left lower quadrant, just left of midline suprapubically. An additional 5 mm trochar was placed in the lower midline. The abdomen was inspected the the right colon and appendix appeared normal. Tap block was performed with 20 cc of Exparel, 60 cc of bupivacaine and 20 cc of saline mixed. The table is placed in Trendelenburg position with the right side up. The cecum was grasped and lifted up to tent the ileocolic artery. The dissecti on was then started at the base of the ileocolic artery were joined the superior mesenteric artery. The peritoneum overlying the takeoff of the ileal colic artery was opened using electrocautery. A 10 mm hemo-lock clips x3, once that had been cleaned off. Dissection continued bluntly in the retroperitoneum using traction and countertraction technique with gentle sweeping. This dissection was carried along the plane of the white line of Toldt to the duodenum. The duodenum and its attachments were swept downward. This dissection continued in an avascular plane to the liver and gallbladder were encountered. Next the opening of the peritoneum near the ileocolic divided vessel was carried all the way up to the base of the transverse mesocolon. The right branch of the middle colic artery with and vein were identified and gently dissected and divided using the Ensure with 5 mm hemoclips proximally. The lateral attachments of the descending colon were then divided using most mobilization of the retroperitoneal attachments of the terminal ileum. This mobilization was carried out until the posterior plane of the dissection that was started from the medial approach was encountered, completing the liberation of the ascending colon in its hepatic flexure. The omentum attached to resect a portion of the colon was divided and resected with the specimen. The supraumbilical incision was enlarged to about 5 cm in length. A wound protector was then placed into the peritoneal cavity to prevent port site implantation as well as minimize risk of wound infection. The ascending and transverse colon were then delivered and extracted. The small bowel and colon was then divided extracorporeally with the AYAH 75. The specimen was removed. The 2 ends of the ileum and transverse colon were then aligned, ensuring that the mesentery was not twisted, and the staple [id number] anastomosis using the standard load-AYAH 75 and TL 60. Bleeding at the staple line was oversewn with [id number] 3-0 Vicryl suture. the peritoneum was again insufflated and the anastomosis, alignment of the bowel, hemostasis were checked. The trochars removed under direct visualization. Once the wound protector was removed, gowns and gloves were changed. The umbilical incision was closed with 1-0 PDS suture at the fascia and then the skin was closed with 4-0 Monocryl interrupted sutures. Dry sterile dressings were applied. The sponge and instrument count were correct. The patient was extubated. The patient tolerated procedure well and was taken to the postanesthesia care unit in stable condition. - Complications none
[2020-02-12] MEDS: Ondansetron ODT 4 MG Tablet PO (16:28)
[2020-02-12] MEDS: Docusate Sodium 100 MG Capsule PO (20:19)
[2020-02-12] MEDS: Ibuprofen 200 MG Tablet PO (21:40)
[2020-02-13] MEDS: oxyCODONE 5 MG Tablet PO (01:56)
[2020-02-13] MEDS: Ondansetron ODT 4 MG Tablet PO (01:57)
[2020-02-13 05:03] VITALS: BP 126/83; PULSE 92; RESP 16; TEMP 36.8; O2SAT 98
[2020-02-13 06:32] LABS: Hematocrit 40.4 % (37-47); Hemoglobin 13.9 g/dL (12.0-15.0); Mean Corp Hgb Conc 34.4 g/dL (32-36); Mean Corpuscular Volume 93.1 fL (81-99); Mean Platelet Vol. 10.1 fl (6.2-12.0); Platelet Count 371 K/mm3 (150-450); RBC Distribution Width CV 11.6 % (11.6-14.6); RBC Distribution Width SD 39.8 fl (35.1-43.9); Red Blood Count 4.34 M/mm3 (4.2-5.4); White Blood Count 10.7 K/mm3 (4.4-11.0)
[2020-02-13 06:56] LABS: Anion Gap 10 (5-15); BUN 5 mg/dL (7-18); BUN/Creat Ratio 7.9 RATIO (10-20); Calcium,Total 9.4 mg/dL (8.5-10.1); Chloride 96 mmol/L (98-107); Creatinine, Serum 0.63 mg/dL (0.55-1.02); EST Glomerular Filtration Rate 105 mL/min (>60); Est Glom Filt Rate - Afr Amer 127 mL/min (>60); Estimated Creatinine Clearance 106.57 ml/min; Glucose 120 mg/dL (74-106); Potassium 3.5 mmol/L (3.5-5.1); Sodium Level 130 mmol/L (136-145)
[2020-02-13 07:04] VITALS: O2SAT 98
[2020-02-13] MEDS: Acetaminophen 500 MG Tablet 1000 MG PO ×3 (07:13→18:17)
--- NOTE | 2020-02-13 07:50 | PN.SURG_ITS ---
Subjective: Patient's been having abdominal pain gas related per patient did take 1 Percocet last night did help her sleep. Patient has been ambulating denies any flatus, states this morning she does have some shoulder pain. - Physical Exam Vitals/I&O's: Vital Signs Temp Pulse Resp BP Pulse Ox 98.2 F 92 16 126/83 H 98 02/13/20 05:03 02/13/20 05:03 02/13/20 05:03 02/13/20 05:03 02/13/20 05:03 Oxygen Flow Rate (L/min) 6 Oxygen Delivery Method Room Air Weight: 161 lb 13.109 oz Body Mass Index (BMI) 24.5 Intake and Output for Last 24 Hours 02/11/20 02/12/20 02/13/20 23:59 23:59 23:59 Intake Total 1222 / 1822 1040 / 1040 Output Total 1235 / 2535 2200 / 2200 Balance -13 / -713 -1160 / -1160 General: Alert, Oriented x3, Cooperative, No apparent distress HEENT: Atraumatic Lungs: Normal air movement Cardiovascular: Regular rate Abdomen: Soft, Distended - Mild, Tender - Near incisions clean dry and intact with op sites, no peritoneal signs Extremities: No clubbing, No cyanosis, No edema Neurological: Cranial nerves II-XII grossly intact Psych/Mental Status: Normal Affect Laboratory Results 02/13/20 06:12: WBC 10.7, RBC 4.34, Hgb 13.9, Hct 40.4, MCV 93.1, MCH 32.0, MCHC 34.4, RDW Std Deviation 39.8, RDW Coeff of Neal 11.6, Plt Count 371, MPV 10.1 02/13/20 06:12: Sodium 130 L, Potassium 3.5, Chloride 96 L, Carbon Dioxide 24.0, Anion Gap 10, BUN 5 L, Creatinine 0.63, Estim Creat Clear Calc 106.57, Est GFR (MDRD) Af Amer 127, Est GFR (MDRD) Non-Af 105, BUN/Creatinine Ratio 7.9 L, Glucose 120 H, Calcium 9.4 Current Medications Acetaminophen (Tylenol) 1,000 mg PO Q6 DEEPAK Last Admin: 02/13/20 07:13 Dose: 1,000 mg Documented by: Docusate Sodium (Colace) 100 mg PO BID [facility] Last Admin: 02/12/20 20:19 Dose: 100 mg Documented by: Duloxetine HCl (Cymbalta) 30 mg PO DAILY [facility] Lactated Ringer's () 1,000 mls @ 40 mls/hr IV .Q25H [facility] Last Admin: 02/12/20 21:45 Dose: 40 mls/hr Documented by: Sodium Chloride () 250 mls @ 15 mls/hr IV .[id number] PRN PRN Reason: Saline Flush Sodium Chloride () 250 mls @ 15 mls/hr IV .[id number] PRN PRN Reason: Additional IVPB Infusion Ibuprofen (Motrin) 400 - 600 mg PO Q6H PRN PRN PRN Reason: Pain Score 1-06/21 Last Admin: 02/12/20 21:40 Dose: 600 mg Documented by: Insulin Human Lispro (Humalog Kwikpen (Bkc)) 0 unit SC Q4H PRN PRN; Protocol PRN Reason: BG >/= 180, SEE PROTOCOL Insulin Human Lispro (Humalog Kwikpen (Bkc)) 1 - 6 unit SC Q4H PRN PRN; Protocol PRN Reason: BG>/= 180, SEE PROTOCOL Magnesium Oxide (Mag-Ox 400) 400 mg PO DAILY PRN PRN PRN Reason: Constipation Nutritional Formula (Lactose Free) (Ensure Enlive) 120 ml PO 4X/DAY [facility] Last Admin: 02/12/20 20:19 Dose: Not Given Documented by: Ondansetron HCl (Zofran Odt) 4 mg PO Q6H PRN PRN PRN Reason: NAUSEA Last Admin: 02/13/20 01:57 Dose: 4 mg Documented by: Oxycodone HCl (Oxyir) 5 - 10 mg PO Q4H PRN PRN PRN Reason: Pain Score 1-1010 Last Admin: 02/13/20 01:56 Dose: 5 mg Documented by: Sodium Chloride () 10 - 40 ml IV UD PRN PRN Reason: SALINE FLUSH Tizanidine HCl (Zanaflex) 4 mg PO QHS [facility] Last Admin: 02/12/20 20:20 Dose: Not Given Documented by: Medical Necessity - Tobacco Use Smoking Status: Former smoker Tobacco Use: Non-smoker Assessment/Plan All Active Problems (Last Updated 01/18/20 @ 08:31 by Torrie Jaramillo) Endometriosis (Acute) Ovarian cyst (Acute) 49-year-old female postop day 1 status post laparoscopic right hemicolectomy for appendiceal orifice circumferential polyp-pathology showed a tubular adenoma 1. Continue clears will advance to transitional once patient's abdominal pain improved/has flatus., continue ambulation 2. Continue pain control If patient's pain improves and has flatus plan to change to a transitional diet and could possibly still be DC'd later today. Em Hazel M.D. Pager: [phone] [facility] [address] [place] [address], [address] [place] [address] Office: [phone]
[2020-02-13 09:00] VITALS: BP 126/79; PULSE 84; RESP 16; TEMP 36.8; O2SAT 98
[2020-02-13] MEDS: Docusate Sodium 100 MG Capsule PO ×2 (09:35→21:21)
[2020-02-13] MEDS: DULoxetine Hcl 30 MG Capsule PO (09:40)
[2020-02-13 17:00] VITALS: BP 118/68; PULSE 70; RESP 18; TEMP 36.9; O2SAT 99
[2020-02-13 21:10] VITALS: BP 103/81; PULSE 79; RESP 18; TEMP 37.1; O2SAT 98
[2020-02-13] MEDS: tiZANidine HCl 2 MG Tablet 4 MG PO (21:21)
[2020-02-13] MEDS: Lactated Ringers 1,000 ML 40 ML IV (21:28)
[2020-02-14 02:55] VITALS: BP 95/56; PULSE 80; RESP 18; TEMP 37.1; O2SAT 97
[2020-02-14] MEDS: Acetaminophen 500 MG Tablet 1000 MG PO (06:07)
--- NOTE | 2020-02-14 06:58 | PCM.PN.SRG ---
- Physical Exam Vitals/I&O's: Vital Signs Temp Pulse Resp BP Pulse Ox 98.8 F 80 18 95/56 L 97 02/14/20 02:55 02/14/20 02:55 02/14/20 02:55 02/14/20 02:55 02/14/20 02:55 Oxygen Flow Rate (L/min) 6 Oxygen Delivery Method Room Air Weight: 161 lb 13.109 oz Body Mass Index (BMI) 24.5 Intake and Output for Last 24 Hours 02/12/20 02/13/20 02/14/20 23:59 23:59 23:59 Intake Total 1222 / 1822 4038.67 / 4038.67 300 / 300 Output Total 1235 / 2535 6050 / 6050 Balance - 300 / 300 General: Alert, Oriented x3, Cooperative, No apparent distress HEENT: Atraumatic Lungs: Normal air movement Cardiovascular: Regular rate Abdomen: Soft, Distended - mild, Tender - at incision --appropriate, - - incision dressed c/d/i, no PS Extremities: No clubbing, No cyanosis, No edema Neurological: Cranial nerves II-XII grossly intact Psych/Mental Status: Normal Affect Current Medications Acetaminophen (Tylenol) 1,000 mg PO Q6 [facility] Last Admin: 02/14/20 06:07 Dose: 1,000 mg Documented by: Docusate Sodium (Colace) 100 mg PO BID [facility] Last Admin: 02/13/20 21:21 Dose: 100 mg Documented by: Duloxetine HCl (Cymbalta) 30 mg PO DAILY [facility] Last Admin: 02/13/20 09:40 Dose: 30 mg Documented by: Lactated Ringer's () 1,000 mls @ 40 mls/hr IV .Q25H [facility] Last Admin: 02/13/20 21:28 Dose: 40 mls/hr Documented by: Sodium Chloride () 250 mls @ 15 mls/hr IV .[id number] PRN PRN Reason: Saline Flush Sodium Chloride () 250 mls @ 15 mls/hr IV .[id number] PRN PRN Reason: Additional IVPB Infusion Ibuprofen (Motrin) 400 - 600 mg PO Q6H PRN PRN PRN Reason: Pain Score 1-10/10 Last Admin: 02/12/20 21:40 Dose: 600 mg Documented by: Insulin Human Lispro (Humalog Kwikpen (Bkc)) 0 unit SC Q4H PRN PRN; Protocol PRN Reason: BG >/= 180, SEE PROTOCOL Insulin Human Lispro (Humalog Kwikpen (Bkc)) 1 - 6 unit SC Q4H PRN PRN; Protocol PRN Reason: BG>/= 180, SEE PROTOCOL Magnesium Oxide (Mag-Ox 400) 400 mg PO DAILY PRN PRN PRN Reason: Constipation Nutritional Formula (Lactose Free) (Ensure Enlive) 120 ml PO 4X/DAY [facility] Last Admin: 02/13/20 21:21 Dose: Not Given Documented by: Ondansetron HCl (Zofran Odt) 4 mg PO Q6H PRN PRN PRN Reason: NAUSEA Last Admin: 02/13/20 01:57 Dose: 4 mg Documented by: Oxycodone HCl (Oxyir) 5 - 10 mg PO Q4H PRN PRN PRN Reason: Pain Score 1-10/10 Last Admin: 02/13/20 01:56 Dose: 5 mg Documented by: Sodium Chloride () 10 - 40 ml IV UD PRN PRN Reason: SALINE FLUSH Tizanidine HCl (Zanaflex) 4 mg PO QHS [facility] Last Admin: 02/13/20 21:21 Dose: 4 mg Documented by: Medical Necessity - Tobacco Use Smoking Status: Former smoker Tobacco Use: Non-smoker Assessment/Plan All Active Problems (Last Updated 01/18/20 @ 08:31 by Torrie Jaramillo) Endometriosis (Acute) Ovarian cyst (Acute) 49-year-old female postop day 2 status post laparoscopic right hemicolectomy for appendiceal orifice circumferential polyp-bx pathology showed a tubular adenoma 1. +BF, advance to transitional 2. Continue pain control Em Hazel M.D. Pager: [phone] [facility] [address] [place] [address], [facility], [address] [place] [address] Office: [phone]
--- NOTE | 2020-02-14 08:37 | DCINST_ITS ---
Discharge Diet: - - transitional x 1 week Discharge Activity: May Shower Lifting Restrictions: No lifting > 20 lbs x 2 weeks, no strenuous exercise x4-6 wks Call your doctor if your incision/area has: Continuous Slow Oozing, Sudden Increased Bleeding, Increased Pain/ Swelling, Increased Redness, Foul Smelling Discharge, Swelling at the incision site Call your doctor if you observe: Fever of 101 or Higher Remove Dressing in (days):: 0 - Okay to remove op sites today, Steri-Strips down for 7 to 10 days from surgery okay to remove after 10 days Allergies/Adverse Reactions: Allergies cephalexin [From Keflex] Allergy (Verified 02/12/20 06:00) Rash Medications to take at Discharge Duloxetine Hcl [Cymbalta] 30 mg PO DAILY 07/19/16 Multivitamins,Therapeutic [Multivitamin] 1 tab PO DAILY 07/19/16 acetaminophen 300 mg-codeine 30 mg tablet 1 tab PO Q6H PRN 01/18/20 meloxicam 15 mg tablet 15 mg PO DAILY 01/18/20 tizanidine 4 mg capsule 4 mg PO QHS 01/18/20 Metronidazole 500 mg PO X1 02/12/20 Neomycin Sulfate [Neomycin] 500 mg PO X1 02/12/20 Primary Care Physician: Carrillo Driscoll Chi, MD [Primary Care Provider] - Test Results: Test results from this visit will be discussed in further detail at your follow- up appointment, if applicable. Please Follow Up With: Em Hazel MD - After 5 PM and on the weekends call [phone] with any concerns When: The office for follow-up appointment in 2 weeks may be phone/virtual Proposed Discharge Date: 02/14/20
[2020-02-14 09:00] VITALS: O2SAT 98
[2020-02-14 09:16] VITALS: BP 115/72; PULSE 82; RESP 18; TEMP 37.2; O2SAT 98
[2020-02-14] MEDS: Docusate Sodium 100 MG Capsule PO (09:31)
== END 2020-02-14 09:45 | disposition home or self-care (01) | DRG 331 ==
LOC: MS3 12:24 → ACINP 02-13 09:11
PROVIDERS: Anesthesiology; Admitting Provider Surgery; PCP Family Medicine Geriatric Medicine; Referring Provider Surgery; Visit Provider Surgery
PROC: (CPT 44205; principal; 2020-02-12 07:10)
DX: D12.0 Benign neoplasm of cecum (principal); F41.9 Anxiety disorder, unspecified; Z79.899 Other long term (current) drug therapy; Z87.891 Personal history of nicotine dependence; Z90.721 Acquired absence of ovaries, unilateral
CPT/HCPCS: 36415; 80048; 82962; 83735; 85027; 87635; 88307; 88309; 93005; 99251; G2023; J7120; C1760; G0463; J0744; J2405; J3490; U0003

== ENCOUNTER → 2020-06-19 17:55 | Outpatient (CLI) | payer OTHER, SELFPAY ==
[2020-06-12 13:02] VITALS: BMI 24.5
== END ==
PROVIDERS: PCP Family Medicine Geriatric Medicine; Referring Provider Family Medicine Geriatric Medicine; Visit Provider Family Medicine Geriatric Medicine
DX: R68.83 Chills (without fever) (principal)
CPT/HCPCS: 87633; 87635; C9803; U0003

== ENCOUNTER → 2020-07-21 17:44 | Outpatient (CLI) | payer OTHER, SELFPAY ==
[2020-06-12 13:02] VITALS: BMI 24.5
== END ==
PROVIDERS: PCP Family Medicine Geriatric Medicine; Visit Provider Family Medicine Geriatric Medicine
DX: R06.89 Other abnormalities of breathing (principal)
CPT/HCPCS: 87633; 87635; C9803; U0003

== ENCOUNTER 2020-08-28 11:55 | Outpatient (RCR) | payer OTHER, SELFPAY ==
[2020-06-12 13:02] VITALS: BMI 24.5
--- NOTE | 2020-08-28 13:35 | HP.PTEVAL_ITS ---
Patient's Visit Information FEDE HERZOG is a 50 year old F referred to Physical Therapy by Dr. Jorge Alberto Hadley MD with a diagnosis of NECK PAIN. Date of Evaluation: 08/28/20 Physical Therapist: Ariadna Yepez PT, Cert MDT - Visit Plan Frequency: 2-3x /Week Duration: 4-6 Weeks Plan: CHECK AND RECORD INSURANCE VISIT APPROVAL. PATIENT HAS EXTENSIVE SPINE HISTORY AND HAS HAD A LOT OF PT IN THE PAST. PLEASE START SLOW. POSTURE CORRECTION/STRENGTHENING, INSTRUCTION IN APPROPRIATE BODY MECHANICS AND ACTIVITY MODIFICATIONS. YOHANA UE ROM, STRETCHING AND STRENGTHENING. HEP INSTRUCTION. PLEASE FOCUS ON CORE STABILIZATION INCLUDING HIP EXTENSOR STREGTHENING TOLE RATED. - Subjective Work/Leisure: [employer] AT [facility] 30 TO 50 HOURS A WEEK. HOURS VARYING DUE TO COVID. Disability: NO. Present symptoms: NECK AND BACK PAIN. YOHANA UE INTERMITTENT ARM ACHING. PATIENT DENIES UE AND LE NUMBNESS AND TINGLING. MID BACK PAIN. Present since: YEARS. Pain Scale: Worst - 9/10 Least - 4/10. Currently: 5/10, PAIN IS UNCHANGING OVERALL AT THIS POINT PER PATIENT REPORT. Commenced as a result of: PATIENT REPORTS A HORSE FELL ON HER - THIS IS WHAT STARTED MID BACK PAIN. LOW BACK PAIN STARTED EARLIER AFTER LIFTING A WATER BUCKET. Symptoms at onset: RIBS. Worse: LIFTING, TWISTING, PROLONGED WALKING, PROLONGED SITTING, PROLONGED STANDING, HOUSEWORK, BEING PULLED BY HORSE, BENDING, WORK, DRIVING OR RIDING IN A VEHICLE VERY LONG. STEPPING UP INTO VEHICLE. Better: STRETCHING - POSTION AND ROLL - VERY TEMPORARY RELIEF, MUSCLE RELAXERS. A LOT OF ADVIL BUT MESS STOMACH UP. TYLONOL AND CODEINE. Disturbed sleep: YES. Previous history/Previous treatment: LOW BACK SURGERY 2001 AND 2003. NO THORACIC OR NECK SURGERY. SAW A NEURO SX THAT DID NOT RECOMMEND THORACIC SX A FEW YEARS AGO. HAS SEEN DR. COVINGTON FOR HER NECK - NO SX RECOMMENDED. ACUPUNCTURE. PHYSICAL THERAPY FOR NECK, T-SPINE AND LUMBAR. TAWNYA'S IN LOW BACK BEFORE SURGERY AND ONGOING T-SPINE AND NECK INJECTIONS WITH DR. HADLEY THE LAST FEW YEARS. 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 HAS ALSO TRIED MASSAGE THERAPY. PATIENT REPORTS THAT THERAPY HAS NEVER HELPED IN THE PAST AND SHE HAS NOT CONTINUED AN EX PROGRAM. HAS EVEN TRIED AQUATIC THERAPY. Dizziness: NO. Tinnitis: NO. Nausea: NO. Shortness of Breath: NO. Difficulty Swollowing: NO. Difficulty initiating urination: NO. Gait: TIME AND DISTANCE LIMITED. Accidents: UNREMARKABLE OTHER THAN HORSE INCIDENT. Unexplained weight loss: NO. Imaging: NONE RECENT. PMH/Recent major surgery: RIGHT CLAVICLE ORIF, YOHANA SHLD SX'S, MASS REMOVED FROM APPENDIX AND PARTIAL COLON REMOVAL FEBRUARY 2020, UNREPAIRED R ROTATOR CUFF PARTIAL TEAR. YOHANA ELBOW SX'S AND CHRONIC PAIN. OTHER: PATIENT REPORTS DR. HADLEY RECOMMENDED MRI OF CERVICAL AND THORACIC REGIONS BECAUSE THE LAST TWO INJECTIONS DIDN'T HELP. ALSO REPORTS DR. HADLEY RECOMMENDED FOLLOW UP WITH DR. ROBERTO MCCAULEY FOR HER LUMBAR PAIN. PATIENT REPORTS SHE HAD TO GO ON DISABILITY FOR 2 YEARS DUE TO COMPLICATION OF INFECTION AFTER DISCECTOMY. - Objective Sitting Posture/Standing Posture: RIGHT SHLD LEVEL LOWER THAN LEFT. RIGHT ILIAC CREST SLIGHTLY HIGHER THAN LEFT. FORWARD HEAD, DECREASED KYPHOSIS AND INCREASED LORDOSIS. Active Correction of posture: BETTER. Other Observations: INDEP GAIT AND TRANSFERS. SIT TO STAND INDEP WITHOUT UE ASSIST. Motor deficit: YOHANA UE'S AND LE'S GROSSLY 4-5/5 WITH MMT'ING EXCEPT YOHANA HIP EXTENSION STRENGTH 4-/5. RIGHT HANDED WITH A YOHANA EXTRUDING PRESS OPERATOR STRENGTH OF APPROX 65 LBS. Sensory deficit: YOHANA UE AND LE LIGHT TOUCH SENSATION APPEARS INTACT AND SYMMETRICAL. ROM deficit: YOHANA UE'S AND LE'S WFL. Reflexes: 2/3 YOHANA UE'S AND LE'S. Dural Signs: NEGATIVE YOHANA UE'S AND LE'S. Cervical Mvmt Loss: Flex: NIL. Pro: NIL. Ext: MOD. Ret: YONI. RSB: MOD. LSB: MOD. R Rot: MOD. L Rot: MIN. Lumbar mvmt loss: flex - MOD. ext - YONI. R SG - YONI. L SG - YONI. THORACIC MVMT LOSS: FLEX - MOD. EXT - YONI. R ROT - YONI. L ROT - YONI. PATIENT C/O INCREASED PAIN WITH MVMT TESTING REPORTING THAT THE MORE SHE MOVES THE MORE IT HURTS AND HO. Core strength: POOR. Postural strength: POOR. Palpation: INCREASED MUSCLE TONE THROUGHOUT PARASPINALS AND UPPER TRAPS. HER SPINE IS ALSO AT SENSATIVE THROUGHOUT WITH LIGHT PALPATION. OTHER: THIS PATIENT APPEARS TO BE A GOOD AQUATIC THERAPY PATIENT BUT SHE WANTS TO DO LAND INSTEAD BECAUSE SHE DOES NOT SEE HERSELF FOLLOWING THROUGH WITH A WATER PROGRAM POST PT. - Goals Goal 1:: DECREASE C/O SPINE PAIN (CERVICAL, THORACIC AND LUMBAR). Goal Time Frame: 4-6 Weeks Goal 2:: IMPROVE PERSONAL CARE, LIFTING, READING, SLEEP, WORK, DRIVING, WALKING, SITTING, STANDING, WORK/HOMEMAKING AND RECREATIONAL FUNCTION. Goal 3:: INSTRUCT IN PROPHYLAXIS Goal Time Frame: 4-6 Weeks - Anticipated Interventions Patient/Client Instruction: Educate patient on: Condition, Plan of Care, Risk Factors, Benefits of Fitness Program For the Purpose of:: To improve self management Therapeutic Exercise to Include: Strength training, Body mechanics, Postural training, Flexibilty training, Neuromotor development, Dynamic Lumbar Stabilization, Scapular Strength/Stabilization For the Purpose of:: To decrease pain, To increase ROM, To improve muscle performance and motor function, To increase tolerance to activity /condition/position, To improve ability of physical actions for home/community/work/leisure Thank you for the opportunity to evaluate your patient. For Medicare and Medicare HMO plans, please review the plan of care and approve it. It will need to be FAXED BACK to us at [phone] for Medicare purposes. For Medicare only, by signing this I certify the plan of care. Please let me know if there are questions or concerns regarding this plan of care. Physician Signature: Date:
--- NOTE | 2020-11-16 19:39 | HP.PT.NRP ---
FEDE HERZOG was seen in my office for initial evaluation on 08/28/20. The following Plan of Care was established for this patient: Initial Frequency: 2-3x /Week Initial Duration: 4-6 Weeks Patient/Client Instruction: Educate patient on: Condition, Plan of Care, Risk Factors, Benefits of Fitness Program For the Purpose of:: To improve self management Therapeutic Exercise to Include: Strength training, Body mechanics, Postural training, Flexibilty training, Neuromotor development, Dynamic Lumbar Stabilization, Scapular Strength/Stabilization For the Purpose of:: To decrease pain, To increase ROM, To improve muscle performance and motor function, To increase tolerance to activity/condition/position, To improve ability of physical actions for home/community/work/leisure This patient was last seen in our office 08/28/20. Pertinent comments regarding their Physical therapy will appear below: This patient has not returned to Physical Therapy and is appropriate to return to MD for further follow-up as needed. At this point I will be discontinuing this patient from physical therapy. I would be happy to see this patient again in the future if found appropriate by the physician. Thank you! Ariadna Yepez, PT, Cert MDT
== END 2020-08-28 19:00 | disposition home or self-care (01) ==
LOC: PT 11:55
PROVIDERS: PCP Family Medicine Geriatric Medicine; Referring Provider Anesthesiology Pain Medicine; Visit Provider Anesthesiology Pain Medicine
DX: M54.2 Cervicalgia (principal); M54.9 Dorsalgia, unspecified
CPT/HCPCS: 97162; 97163

== ENCOUNTER → 2020-10-01 17:40 | Outpatient (CLI) | payer OTHER, SELFPAY ==
[2020-06-12 13:02] VITALS: BMI 24.5
== END ==
PROVIDERS: PCP Family Medicine Geriatric Medicine; Referring Provider Family Medicine Geriatric Medicine; Visit Provider Family Medicine Geriatric Medicine
DX: R68.83 Chills (without fever) (principal)
CPT/HCPCS: 87635; C9803; U0005; U0003

== ENCOUNTER → 2020-10-16 06:27 | Outpatient (CLI) | payer OTHER, SELFPAY ==
[2020-06-12 13:02] VITALS: BMI 24.5
--- NOTE | 2020-10-16 06:38 | MRI_ITS ---
HISTORY: Lower back pain. Numbness mainly in left leg. Legs ache. Cinders been going on and off for a couple of years. Pain is dull can't be sharp and the lower back. 2 surgeries most recently 2004. Other surgeries on both shoulders, both elbows, clavicle, groin, ovary, colon, and appendix. Comparison imaging is a CT scan of the abdomen and pelvis from February 08, 2020. X-rays of the lumbar spine are available from June 13, 2017. Technique: Sagittal T1-T2 and STIR axial T1 and T2-weighted images were obtained through the lumbar spine. 139 images. Findings: Posterior spinal fixation surgery with prosthetic disc spacer and ossification across the intervertebral disc space at the L4-L5 level is similar. Alignment at L3-L4 remains within anterior subluxation of L3 on L4 by a few millimeters. Vertebral body height remains normal. Other than the susceptibility artifact from the metallic hardware that appears as if the marrow signal is normal. Other than at the L4 L5 level vertebral body height and disc heights appear normal. Disc signal is normal except at the L4-L5 level. The conus medullaris remains at the T12 level. The L5 vertebral body remain somewhat of a transitional vertebral body with an enlarged left the second is a pseudoarticulation with the left hemisacrum. At the L1-L2 level facet arthropathy and ligamentum thickening and disc bulge cause mild spinal canal stenosis. At the L2-L3 level facet arthropathy, ligamentum thickening and disc bulge causes mild spinal canal stenosis. At the L3-L4 level facet arthropathy, ligamentum thickening, disc bulge, and anterior subluxation of L3 on L4 causes moderate spinal canal stenosis. The surgical level is widely patent and normal. The L5-S1 level is widely patent and normal. There is some neural foraminal stenosis at the L3-L4 and L4-L5 levels. This disease appears to be similar to that of the CT of February 08, 2020. MRI/Spine Lumbar (Routine) IMPRESSION: Stable appearance to the exam compared to the CT scan of February 08, 2020. Posterior spinal fixation of L4 on L5. Partial lumbarization of L5. Anterior subluxation of L4 on L5 with facet arthropathy, ligamentum thickening, and disc bulge contributing to moderate spinal canal stenosis. Some neural foraminal stenosis is also present at the L3-L4 and L4-L5 levels. at 0339 Reported and signed by: Donell Gallagher MD Electronically Signed: Donell Gallagher MD at 3:37 EST Tel , Service support ,
== END ==
PROVIDERS: PCP Family Medicine Geriatric Medicine; Referring Provider Anesthesiology Pain Medicine; Visit Provider Anesthesiology Pain Medicine
DX: M54.9 Dorsalgia, unspecified (principal); M79.606 Pain in leg, unspecified
CPT/HCPCS: 72148

== ENCOUNTER → 2020-12-10 13:23 | Outpatient (CLI) | payer OTHER, SELFPAY ==
[2020-06-12 13:02] VITALS: BMI 24.5
[2020-12-10 16:42] LABS: Absolute Lymphocyte Count 2.05 X10^3/uL (0.83-4.51); Absolute Neutrophil Count 2.5 X10^3/uL (2.0-7.7); Basophil# 0.06 X10^3/uL; Basophil% 1.2 % (0-1); Eosinophil# 0.03 X10^3/uL; Eosinophils% 0.6 % (0-5); Hemoglobin 13.1 g/dL (12.0-15.0); Lymphocyte # 2.05 X10^3/ul (4.0); Lymphocyte % 41.4 % (19-41); Mean Corpuscular Hgb 31.3 pg (27.0-32.0); Mean Corpuscular Volume 98.1 fL (81-99); Mean Platelet Vol. 10.3 fl (6.2-12.0); Monocyte# 0.29 X10^3/uL; Monocyte% 5.9 % (0-10); NRBC Flagged by Analyzer 0 % (0-5); Neutrophil # 2.51 X10^3/uL (2.7-7.7); Neutrophil % 50.7 % (47-70); Platelet Count 364 K/mm3 (150-450); RBC Distribution Width CV 12.5 % (11.6-14.6); RBC Distribution Width SD 44.8 fl (35.1-43.9); Red Blood Count 4.18 M/mm3 (4.2-5.4)
[2020-12-10 17:12] LABS: Vitamin D,25 Hydroxy 24.5 ng/mL
[2020-12-10 17:19] LABS: ALB/GLOB Ratio 1.1 RATIO (0.9-2.4); AST(SGOT) 21 U/L (15-37); Alanine Aminotransfer ALT/SGPT 29 U/L (13-56); Albumin, Serum 4.3 g/dL (3.2-5.0); Alkaline Phosphatase 76 U/L (45-117); Anion Gap 5 (5-15); BUN 20 mg/dL (7-18); BUN/Creat Ratio 30.9 RATIO (10-20); Calcium,Total 9.8 mg/dL (8.5-10.1); Chloride 106 mmol/L (98-107); Creatinine, Serum 0.65 mg/dL (0.55-1.02); EST Glomerular Filtration Rate 102 mL/min (>60); Est Glom Filt Rate - Afr Amer 123 mL/min (>60); Globulin 3.8 g/dL (2.2-4.2); Glucose 80 mg/dL (74-106); Protein, Total 8.1 g/dL (6.4-8.2); Sodium Level 139 mmol/L (136-145); Thyroid Stim Hormone (TSH) 0.98 uIU/mL (0.358-3.74)
== END ==
PROVIDERS: PCP Family Medicine Geriatric Medicine; Visit Provider Family Medicine Geriatric Medicine
DX: R53.83 Other fatigue (principal); E55.9 Vitamin D deficiency, unspecified
CPT/HCPCS: 36415; 80053; 82306; 84443; 85025

== ENCOUNTER 2021-12-16 13:00 | Outpatient (CLI) | payer OTHER, SELFPAY ==
[2021-12-16 17:07] LABS: Absolute Lymphocyte Count 2.39 X10^3/uL (0.83-4.51); Absolute Neutrophil Count 2.3 X10^3/uL (2.0-7.7); Basophil# 0.04 X10^3/uL; Basophil% 0.8 % (0-1); Eosinophil# 0.03 X10^3/uL; Eosinophils% 0.6 % (0-5); Hematocrit 36.3 % (37-47); Hemoglobin 12.4 g/dL (12.0-15.0); Lymphocyte # 2.39 X10^3/ul (0.83-4.51); Lymphocyte % 46.3 % (19-41); Mean Corp Hgb Conc 34.2 g/dL (32-36); Mean Corpuscular Volume 93.6 fL (81-99); Mean Platelet Vol. 10.1 fl (6.2-12.0); Monocyte# 0.38 X10^3/uL; Monocyte% 7.4 % (0-10); NRBC Flagged by Analyzer 0 % (0-5); Neutrophil # 2.32 X10^3/uL (2.7-7.7); Neutrophil % 44.9 % (47-70); Platelet Count 345 K/mm3 (150-450); RBC Distribution Width CV 12.3 % (11.6-14.6); RBC Distribution Width SD 42.5 fl (35.1-43.9); Red Blood Count 3.88 M/mm3 (4.2-5.4); White Blood Count 5.2 K/mm3 (4.4-11.0)
[2021-12-16 17:40] LABS: AST(SGOT) 28 U/L (15-37); Alanine Aminotransfer ALT/SGPT 36 U/L (13-56); Albumin, Serum 3.9 g/dL (3.2-5.0); Alkaline Phosphatase 91 U/L (45-117); Anion Gap 6 (5-15); BUN 21 mg/dL (7-18); BUN/Creat Ratio 28.3 RATIO (10-20); Calcium,Total 9.4 mg/dL (8.5-10.1); Chloride 103 mmol/L (98-107); Creatinine, Serum 0.74 mg/dL (0.55-1.02); EST Glomerular Filtration Rate 87 mL/min (>60); Est Glom Filt Rate - Afr Amer 105 mL/min (>60); Globulin 3.9 g/dL (2.2-4.2); Glucose 73 mg/dL (74-106); Protein, Total 7.8 g/dL (6.4-8.2); Sodium Level 136 mmol/L (136-145); Thyroid Stim Hormone (TSH) 1.93 uIU/mL (0.358-3.74)
== END 2021-12-16 23:59 | disposition home or self-care (01) ==
LOC: POLAB3 13:01
PROVIDERS: PCP Family Medicine Geriatric Medicine; Visit Provider Family Medicine Geriatric Medicine
DX: R53.83 Other fatigue (principal)
CPT/HCPCS: 36415; 80053; 84443; 85025

== ENCOUNTER → 2022-01-14 | Outpatient (CLI) | payer OTHER, SELFPAY ==
--- NOTE | 2022-01-14 11:53 | BI_ITS ---
MAMMOGRAPHY - BILATERAL SCREENING REASON FOR EXAM: Female, 51 years old. Routine annual screening examination. PERTINENT HISTORY: Aunt with breast cancer. TECHNIQUE: Digital bilateral breast tesfaye (3D mammographic acquisition) in the CC and MLO projections. 2-D mediolateral oblique (MLO) and craniocaudad (CC) views of both breasts were obtained. CAD: Full Field Digital Mammography with Computer Added Detection was performed. COMPARISON: Comparison is made with prior study dated 12/21/2019 and 02/12/2013. FINDINGS: Breast Composition: There are scattered areas of fibroglandular density. There are no dominant masses or suspicious calcifications. No other significant abnormalities are identified. There has been no significant change since the prior study. BI/SCRN MAMM (CAD)W/TESFAYE BILAT IMPRESSION: Stable bilateral screening mammogram. Yearly follow-up mammogram recommended. (A) ASSESSMENT CATEGORY: BIRADS Category 1: Negative. A letter regarding these results will be sent to the patient by the facility within 30 days. Approximately 10% of breast cancers are not detected by mammography. A normal mammogram should not delay biopsy of a clinically suspicious abnormality. [id number] Electronically Signed: Vidal Álvarez MD at 12:54 EDT ,
== END | disposition home or self-care (01) ==
LOC: OPBI 11:52
PROVIDERS: PCP Family Medicine Geriatric Medicine; Visit Provider Family Medicine Geriatric Medicine
DX: Z12.31 Encounter for screening mammogram for malignant neoplasm of breast (principal)
CPT/HCPCS: 77063; 77067

== ENCOUNTER 2022-07-16 13:54 | Emergency (ER) | payer OTHER, SELFPAY ==
[2022-07-16 13:56] VITALS: BP 152/93; PULSE 96; RESP 14; TEMP 35.9; O2SAT 96; BMI 25.8
--- NOTE | 2022-07-16 14:18 | CT_ITS ---
STUDY: CT BRAIN WITHOUT CONTRAST REASON FOR EXAM: Female, 52 years old. History of fall from horse. RADIATION DOSAGE (If Supplied By Facility): CTDIvol = ( 44.99 ) mGy, DLP = ( 829.85 ) mGycm TECHNIQUE: Transaxial CT imaging of the brain was performed without administration of intravenous contrast material. Individualized dose optimization techniques were used for this CT. COMPARISON: No relevant priors. FINDINGS: Normal soft tissue structures. Normal calvarium. Normal size ventricles and extra-axial spaces for the patient''s age. Normal white matter tracts of the cerebral hemispheres. Normal basal ganglia and thalami. Normal brainstem. Normal cerebellum. There is no intracranial hemorrhage. There are no findings of an acute ischemic infarction. Normal visualized paranasal sinuses. CT/Brain/Head without Contrast IMPRESSION: Normal unenhanced CT scan of the brain. Electronically Signed: Vidal Álvarez MD at 15:09 EDT ,
--- NOTE | 2022-07-16 14:18 | EX.ED.GENINJ ---
HPI History of Present Illness Chief Complaint: Fall Detail of Chief Complaint: Fall with injury to left ribs and back Informant: patient Narrative Narrative: Patient presents the emergency department after sustaining a fall off of a horse 2 hours ago. Patient states that the horse spooked and she was thrown off. The horse did not fall on her. Patient did strike her head but no loss of consciousness. Patient was not wearing a helmet. Patient states that she had a headache for short time but now mostly resolved. Patient denies any neck pain. She complains of pain in the left ribs as well as her low back and left hip area. Patient has urinated since the fall and there was no gross blood noted. She denies any abdominal pain. She denies neck pain. Patient on buprenorphine patch for history of chronic pain. [facility] Medical History (Updated 07/16/22 @ 15:[address] Johnathan Herr, ) Anxiety Back pain Endometriosis History of kidney stones History of Thoracic Fracture Home Medications duloxetine 30 mg capsule,delayed release 30 mg PO DAILY anx 07/19/16 [History Last Taken Unknown] multivitamin with folic acid 400 mcg tablet 1 tab PO DAILY Check with primary doctor 07/19/16 [History Last Taken Unknown] tizanidine 4 mg capsule (Zanaflex) 4 mg PO QHS Check with primary doctor 01/18/20 [History Last Taken Unknown] meloxicam 7.5 mg tablet 7.5 mg PO ONCE 10/28/20 [History Last Taken Unknown] buprenorphine 10 mcg/hour weekly transdermal patch 1 patch topical DIRECTED 12/25/20 [History Last Taken Unknown] omega xl PO BID 12/25/20 [History Last Taken Unknown] cyclobenzaprine 10 mg tablet 10 mg PO TID PRN Muscle Spasm #20 TABLETS 07/16/22 [Rx Last Taken Unknown] oxycodone-acetaminophen 5 mg-325 mg tablet 1 tab PO Q6H PRN PRN Pain 3 days #12 TABLETS 07/16/22 [Rx Last Taken Unknown] Allergy/AdvReac Type Severity Reaction Status Date / Time cephalexin [From Keflex] Allergy Rash Verified 07/16/22 13:56 Family History Mother Diabetes Arthritis Anemia Hypertension Grandfather Diabetes CVA (cerebral vascular accident) Aunt Breast cancer Grandmother Arthritis Surgical History clavicle surgery H/O elbow surgery H/O shoulder surgery History of back surgery History of left oophorectomy Social History Smoking Status: Former smoker alcohol intake: never substance use type: does not use caffeine: Yes what type of physical activity do you participate in: walking and other details: Horseback Riding seatbelt use: always do you feel safe at home: Yes additional social history: - [employer] and [facility] [employer] Karena ROS ROS ED Review of Systems ROS Unobtainable: other Constitutional Constitutional ED: Reports lethargy; Denies chills, fever(s), sweats or weight loss Eyes Eyes: Denies blurry vision, change in vision or diplopia ENT ENT ED: Denies rhinorrhea or sore throat Cardiovascular Cardiovascular: Reports chest pain; Denies orthopnea or racing heartbeat Respiratory/Chest Respiratory/Chest: Denies cough, dyspnea, dyspnea on exertion, orthopnea or sputum Gastrointestinal Gastrointestinal: Denies abdominal pain, diarrhea, nausea or vomiting Genitourinary Genitourinary ED: Denies dysuria, hematuria or urinary frequency Musculoskeletal Musculoskeletal: Reports back pain; Denies arthralgias, myalgias or neck pain Integumentary Denies abscess, Abrasions or rash Neurologic Neurologic: Reports headache(s); Denies weakness Psychiatric Psychiatric: Denies anxiety, depression or suicidal thoughts Endocrine Endocrinology: Denies polydipsia, polyphagia or polyuria Hematologic/Lymphatic Hematologic/Lymphatic: Denies easy bleeding, easy bruising or lymphadenopathy Allergic/Immunologic Allergic/Immunologic ED: Denies mouth swelling, tongue swelling or urticaria EXAM Physical Exam Const Vital Signs: 07/16/22 13:56 07/16/22 14:13 Temperature 96.6 F L Temperature Source Temporal Pulse Rate 96 Respiratory Rate 14 Respiratory Effort Normal Non-Labored Respiratory Depth Normal Respiratory Pattern Normal Blood Pressure 152/93 H Blood Pressure Mean 112 Pulse Ox 96 Oxygen Delivery Method Room Air Room Air Positive well nourished and well developed General Appearance ED: well developed and NAD HEENT Reports TM's clear and moist mucous membranes normocephalic and atraumatic; Negative for trauma or tenderness Tympanic Membrane ED: Yes TM's clear Eyes PERRL and EOMs intact bilaterally General Eye ED: Negative for pale conjunctiva or scleral icterus Neck no lymphadenopathy, supple and no JVD General: Negative for tenderness Chest Wall inspection of chest normal Chest Narrative: Patient with some tenderness palpation over the anterior left lower ribs below the breast. Patient with some minimal discomfort to the posterior ribs on the left. Chest: Negative for tenderness Resp normal respiratory effort and clear to auscultation bilaterally Effort and Inspection: Negative for respiratory distress or pain with movement Auscultation: Negative for rhonchi, wheezes or diminished lung sounds Cardio regular rate, regular rhythm, S1 normal heart sound, S2 normal heart sound and no murmurs Peripheral Pulses: pulses 2+ throughout GI normal to inspection, nondistended, normoactive bowel sounds, soft to palpation, non-tender, non-distended and no masses Back/Spine no CVA tenderness Back/Spine Narrative: Tenderness to palpation over the lower lumbar spine and sacrum. Patient with some tenderness palpation over the left lumbar paraspinal musculature. She has negative straight leg raises bilaterally. Deep tendon reflexes plus 3 out of 4 bilaterally at the patella and Achilles. Patient has normal 5 extension. Patient has somewhat decreased sensation to the left lower extremity compared to the right. Extremity normal to inspection General Extremety ED: Negative for edema General Extremity: Negative for edema Neuro oriented x3, CN's II-XII intact bilaterally, no sensory deficits noted and gait normal Sensorium / Orientation: awake, alert, oriented to person, oriented to place and oriented to time Motor Exam: strength 5/5 throughout and strength abnormal Psych mental status grossly normal Skin no rashes or lesions noted and no wounds MDM MDM MDM Narrative Medical decision making narrative: TreatmentCT scan of the brain without contrast was obtained which was unremarkable. X-rays of patient's pelvis as well as left ribs and lumbar spine obtained interpreted by myself as no acute fractures and radiology was in agreement. Case discussed with patient's specialist who recommended Percocet to help her bridge her pain medicine. Patient advised to follow-up with pain management for further treatment of her pain. Radiography Diagnostic Testing: Clinical Impression(s) from Imaging Studies Lumbar Spine X-Ray 07/16/22 14:45 IMPRESSION: Prior fusion at the L4-L5 level. This space narrowing at the L4-L5 level and L5-S1 levels. Electronically Signed: Vidal Álvarez MD at 15:00 EDT , Pelvis X-Ray 07/16/22 14:45 IMPRESSION: No acute abnormality is seen. Electronically Signed: Vidal Álvarez MD at 15:05 EDT , 1 view x-ray of the pelvis obtained interpreted by myself as no acute fractures. Radiology was in agreement. Three-view x-rays of lumbar spine obtained interpreted by myself as no acute fractures and she was noted to have L4-L5 fusion. Radiology felt there was space narrowing at L4-5 and L5-S1. Left rib x-rays and chest x-ray 3 views obtained interpreted by myself no acute fractures without evidence of pneumothorax. Radiology in agreement. Discharge Plan Triage Chief Complaint: Fall ED Provider: Johnathan Herr Dx/Rx/DC Orders Clinical Impression: Closed head injury, Back contusion, Chest wall contusion Instructions: ED Back Contusion, ED Chest Wall Contusion, ED Head Injury (Adult) Prescriptions: New oxycodone-acetaminophen [oxycodone-acetaminophen] 5-325 mg tablet 1 tab PO Q6H PRN PRN (Reason: Pain) 3 Days Qty: 12 0RF cyclobenzaprine [cyclobenzaprine] 10 mg tablet 10 mg PO TID PRN (Reason: Muscle Spasm) Qty: 20 0RF No Action tizanidine [Zanaflex] 4 mg capsule 4 mg PO QHS meloxicam 7.5 mg tablet 7.5 mg PO ONCE buprenorphine 10 mcg/hour patch weekly 1 patch TOPICAL DIRECTED Label Comments: APPLY 1 PATCH EVERY 7 DAYS FOR 28 DAYS omega xl PO BID duloxetine 30 MG capsule 30 mg PO DAILY Label Comments: ANXIETY, PAIN multivitamin with folic acid 1 TABLET tablet 1 tab PO DAILY Label Comments: SUPPLEMENT Primary Care Provider: Carrillo Driscoll Chi Referrals: Carrillo Driscoll Chi, MD [Primary Care Provider] - Activity Restrictions/Additional Instructions: Follow-up with your pain management physician for further management of your pain issues. Disposition Disposition: Home, Self Care
--- NOTE | 2022-07-16 14:45 | RAD_ITS ---
STUDY: X-RAY - UNILATERAL RIBS ( LEFT ) WITH CHEST REASON FOR EXAM: Female, 52 years old. Anterior left rib pain following a fall. TECHNIQUE - RIBS: 4 view(s) of the ribs. TECHNIQUE - CHEST: Single AP portable view of the chest. COMPARISON: None. FINDINGS - RIBS: Normal visualized ribs without a demonstrated fracture. FINDINGS - CHEST: Hyperinflation. The lungs are clear. There is no demonstrated pleural abnormality. Normal size heart. Normal mediastinum and carmen. Normal visualized pulmonary arteries. Normal visualized aortic arch and descending thoracic aorta. Normal visualized thoracic spine. Normal visualized ribs, clavicles, and shoulders. There is no demonstrated abnormality of the visualized soft tissue structures of the upper abdomen. RAD/Ribs Uni Min 3V w/PA Chest IMPRESSION: RIBS: Normal x-ray examination of the ribs. CHEST: Hyperinflation. The lungs are clear. Electronically Signed: Vidal Álvarez MD at 15:06 EDT ,
--- NOTE | 2022-07-16 14:45 | RAD_ITS ---
STUDY: X-RAY - LUMBAR SPINE REASON FOR EXAM: Female, 52 years old. Fall TECHNIQUE: 3 view(s) of the lumbar spine were obtained. COMPARISON: Comparison is made with prior study dated 06/13/2017. FINDINGS: Normal lumbar lordosis. There is no substantial scoliosis. There is a normal alignment of the vertebrae. Mild anterior spondylosis at the L4-L5 and L5-S1 levels. The patient is status post laminectomy in good screw and rosemarie fixation at the L4-L5 level with prosthetic disc material. Partial lumbarization of the S1 vertebrae. There is atherosclerotic calcification of the abdominal aorta without a demonstrated aneurysm. RAD/Lumbar Spine 2 or 3 Views IMPRESSION: Prior fusion at the L4-L5 level. This space narrowing at the L4-L5 level and L5-S1 levels. Electronically Signed: Vidal Álvarez MD at 15:00 EDT ,
--- NOTE | 2022-07-16 14:45 | RAD_ITS ---
STUDY: X-RAY - PELVIS REASON FOR EXAM: Female, 52 years old. Pain following a fall. TECHNIQUE: One view of the pelvis was obtained. COMPARISON: None. FINDINGS: There is a non-specific bowel gas pattern. Normal visualized soft tissue structures. Normal bilateral iliac wings, sacroiliac joints and visualized sacrum. Normal visualized bilateral superior and inferior pubic rami. Normal pubic symphysis. Normal ischial tuberosities. Normal visualized right femoral head. Normal right acetabulum. Normal right hip joint. Normal visualized left femoral head. Normal left acetabulum. Normal left hip joint. Prior fusion at the L4-L5 level. Lumbarization of the S1 vertebrae on the left side. RAD/Pelvis 1 or 2 Views IMPRESSION: No acute abnormality is seen. Electronically Signed: Vidal Álvarez MD at 15:05 EDT ,
[2022-07-16] MEDS: Morphine 4 MG/ML Syringe IM (16:08)
[2022-07-16] MEDS: Ondansetron 4 MG/2 ML Vial IM (16:08)
[2022-07-16 16:54] VITALS: RESP 16
== END 2022-07-16 16:55 | disposition home or self-care (01) ==
PROVIDERS: Emergency Provider Emergency Medicine; PCP Family Medicine Geriatric Medicine; Visit Provider Emergency Medicine
DX: S09.90XA Unspecified injury of head, initial encounter (principal); S20.229A Contusion of unspecified back wall of thorax, initial encounter; Z87.891 Personal history of nicotine dependence; V80.010A Animal-rider injured by fall from or being thrown from horse in noncollision accident, initial encounter
CPT/HCPCS: 70450; 71101; 72100; 72170; 96372; 99282; J2405

== ENCOUNTER → 2022-09-02 | Outpatient (CLI) | payer OTHER, SELFPAY ==
--- NOTE | 2022-09-02 06:35 | MRI_ITS ---
STUDY: MRI THORACIC SPINE WITHOUT CONTRAST REASON FOR EXAM: Female, 52 years old. RADICULOPATHY mid back pain, pt fell off of horse 8 wks ago TECHNIQUE: Standardized fat and water weighted pulse sequences were obtained in the sagittal and axial planes. COMPARISON: MRI of the thoracic spine dated June 03, 2015. X-ray of the thoracic spine dated October 28, 2020. FINDINGS: Normal kyphosis of the thoracic spine. There is no substantial scoliosis. T1-2, T2-3, T3-4, T4-5, T5-6, T6-7, T7-8, T8-9, T9-10, T10-11, T11-12: Disc desiccation is present at nearly all levels throughout the thoracic spine, and addition to mild anterior endplate spurring and degenerative signal. A small Schmorl''s node is present at the T11-T12 level. There is mild disc space narrowing with small left paracentral disc protrusions at T8-T9 and T9-T10, with the protrusion at the T9-T10 level resulting and mild mass effect/compression on the left anterior aspect of the cord see image #20/45 series #8. A small/shallow left foraminal disc protrusion is also present at the T7-T8 level resulting and focal foraminal stenosis and compression of exiting nerve root. Normal central canal and intervertebral neural foramina at the remaining corresponding levels. No fracture or compression deformity or bone marrow edema is present. The spinal ligaments are normal. No edema or fluid collections are seen in the soft tissues. Redemonstration of mild atrophy of the proximal thoracic cord, which is either developmental or due to a long-standing chronic process. The remaining aspects of the cord are within normal limits. Normal conus medullaris that terminates at the T12-L1 level. No cord syrinx or edema is present.. MRI/Spine Thoracic (Routine) IMPRESSION: 1. Mild multilevel degenerative changes of the thoracic spine. 2. No demonstrated acute fracture or compression deformity or bone marrow edema 3. Redemonstration of mild atrophy of the proximal thoracic cord, which is either developmental or due to a long-standing chronic process. Electronically Signed: Daniel Martin MD at 10:22 [facility] ,
== END | disposition home or self-care (01) ==
PROVIDERS: PCP Family Medicine Geriatric Medicine; Referring Provider Anesthesiology Pain Medicine; Visit Provider Anesthesiology Pain Medicine
DX: M48.04 Spinal stenosis, thoracic region (principal); G95.20 Unspecified cord compression; M51.34 Other intervertebral disc degeneration, thoracic region; M54.14 Radiculopathy, thoracic region; M51.24 Other intervertebral disc displacement, thoracic region; M47.814 Spondylosis without myelopathy or radiculopathy, thoracic region
CPT/HCPCS: 72146

== ENCOUNTER → 2022-12-22 | Outpatient (CLI) | payer OTHER, SELFPAY ==
[2022-12-22 18:07] LABS: Absolute Lymphocyte Count 2.46 X10^3/uL (0.83-4.51); Absolute Neutrophil Count 3.1 X10^3/uL (2.0-7.7); Basophil# 0.06 X10^3/uL; Eosinophil# 0.04 X10^3/uL; Eosinophils% 0.7 % (0-5); Hematocrit 37.4 % (37-47); Hemoglobin 11.9 g/dL (12.0-15.0); Lymphocyte # 2.46 X10^3/ul (0.83-4.51); Lymphocyte % 40.1 % (19-41); Mean Corp Hgb Conc 31.8 g/dL (32-36); Mean Corpuscular Volume 97.4 fL (81-99); Mean Platelet Vol. 10.5 fl (6.2-12.0); Monocyte% 8.2 % (0-10); NRBC Flagged by Analyzer 0 % (0-5); Neutrophil # 3.06 X10^3/uL (2.7-7.7); Neutrophil % 49.8 % (47-70); Platelet Count 380 K/mm3 (150-450); RBC Distribution Width CV 13.2 % (11.6-14.6); Red Blood Count 3.84 M/mm3 (4.2-5.4); White Blood Count 6.1 K/mm3 (4.4-11.0)
[2022-12-22 18:19] LABS: Erythrocyte Sedimentation Rate 16 mm/hr (0-30)
[2022-12-22 18:29] LABS: ALB/GLOB Ratio 1.2 RATIO (0.9-2.4); AST(SGOT) 24 U/L (15-37); Alanine Aminotransfer ALT/SGPT 30 U/L (13-56); Alkaline Phosphatase 83 U/L (45-117); Anion Gap 6 (5-15); BUN 28 mg/dL (7-18); BUN/Creat Ratio 41.3 RATIO (10-20); Calcium,Total 9.3 mg/dL (8.5-10.1); Chloride 105 mmol/L (98-107); Cholesterol 235 mg/dL (200); Creatinine, Serum 0.68 mg/dL (0.55-1.02); EST Glomerular Filtration Rate 96 mL/min (>60); Est Glom Filt Rate - Afr Amer 116 mL/min (>60); Globulin 3.4 g/dL (2.2-4.2); Glucose 82 mg/dL (74-106); High Density Lipoprotein 86 mg/dL; Potassium 3.3 mmol/L (3.5-5.1); Protein, Total 7.4 g/dL (6.4-8.2); Rheumatoid Factor < 10.0 IU/mL (<15); Sodium Level 136 mmol/L (136-145); Thyroid Stim Hormone (TSH) 1.16 uIU/mL (0.358-3.74); Triglycerides 42 mg/dL; Very Low Density Lipoprotein 8 mg/dL (5-40)
[2022-12-22 19:16] LABS: Hepatitis C Antibody Non-Reactive (Nonreactive)
== END | disposition home or self-care (01) ==
PROVIDERS: PCP Family Medicine Geriatric Medicine; Visit Provider Family Medicine Geriatric Medicine
DX: E78.5 Hyperlipidemia, unspecified (principal); R53.83 Other fatigue; M19.90 Unspecified osteoarthritis, unspecified site
CPT/HCPCS: 36415; 80053; 80061; 84443; 85025; 85652; 86038; 86431; 86803

== ENCOUNTER → 2023-11-15 | Outpatient (CLI) | payer OTHER, SELFPAY ==
--- NOTE | 2023-11-15 14:40 | CT_ITS ---
HISTORY: Lung cancer screening -- 68 pk yr hx;former smoker; asymptomatic. TECHNIQUE: Helically acquired images were obtained of the chest without contrast. A radiation dose optimization technique was used for this scan. 521 images. COMPARISON: XR 07/16/2022, CT 02/08/2020. FINDINGS: LARGE AIRWAYS: Patent. LUNGS: Interlobular emphysema with mild scarring. Stable 4 mm juxtapleural left upper lobe nodule and 2 mm lateral lingular nodule. PLEURA: No pneumothorax or significant pleural effusion. HEART/PERICARDIUM: Heart within normal limits in size with coronary artery calcification. No pericardial effusion. VESSELS: Thoracic aorta nondilated. Mild atherosclerosis. MEDIASTINUM/HETAL: No pathologically enlarged adenopathy. UPPER ABDOMEN: Unremarkable. BONES: Intact. CT/Low Dose CT Lung Screening IMPRESSION: No significant interval change. Lung-RADS category 2: Continue annual screening with low dose CT. Electronically Signed: Jeanette Packer MD at 9:10 EST ,
--- OUTSIDE RECORDS SUMMARY | 2023-11-15 19:35 | XMS RPT_ITS | CCD ---
Author Name Unknown Address [address] [place] [address] Organization [facility] Care Team Providers Care Heel Shaver Name Role Phone Edy Monahan Unavailable Karla Weeks Unavailable Karla Weeks Unavailable Karla Weeks Unavailable Karla Weeks N Unavailable Edy Monahan Unavailable Karla Weeks Unavailable Allergies Allergy Classification Reported Allergen(s) Allergy Type Date of Onset Reaction(s) Facility (12 sources) cephalexin drug allergy 09-14-2010 [facility] Work Phone: Medications Completed/Discontinued Medications Medication Drug Class(es) Dates Sig (Normalized) Sig (Original) HYDROCODONE-ACETAMI NOPHEN TABS (20 sources) Opioid Agonist Start: 04-02-2013 End: 11-07-2015 VICODIN TABS as needed pain HYDROCODONE-ACETAMIN OPHEN TABS [id number] Edy Monahan Problems Active Problems Problem Classification Problem Date Documented Da te Episodic/Chronic Unclassified (7 sources) Aftercare ; Translations: [Encounter for other orthopedic aftercare] Onset: 03-23-2017 04-06-2017 Unclassified (12 sources) Disruption of wound, unspecified; Translations: [Disruption of wound, unspecified] Onset: 09-22-2011 09-22-2011 Past or Other Problems Problem Classification Problem Date Documented Date Episodic/Chronic Bacterial infection; unspecified site (12 sources) Methicillin resistant Staphylococcus aureus infection; Translations: [Methicillin resistant Staphylococcus aureus infection, unspecified site] Onset: 09-14-2010 09-14-2010 Episodic Other connective tissue disease (19 sources) Lateral epicondylitis, left elbow; Translations: [Lateral epicondylitis, right elbow] Onset: 11-07-2015 12-26-2015 Episodic Other connective tissue disease (5 sources) Lateral epicondylitis, right elbow; Translations: [Lateral epicondylitis, right elbow] Onset: 11-07-2015 11-18-2015 Episodic Other non-traumatic joint disorders (19 sources) Pain in left elbow; Translations: [Pain in elbow] Onset: 11-07-2015 01-14-2016 Episodic Other non-traumatic joint disorders (5 sources) Pain in elbow; Translations: [Pain in right elbow] Onset: 11-07-2015 11-18-2015 Episodic Skin and subcutaneous tissue infections (12 sources) Abscess of groin; Translations: [Cutaneous abscess of groin] Onset: 02-10-2011 02-10-2011 Episodic Results Test Name Value Interpretation Reference Range Facil ity Vital Signs Date Time Vital Sign Value Performing Clinician Facility 11-07-2015 13:32-0500 BMI (Body Mass Index) 20.38 kg/m2 [facility] Work Phone: 11-07-2015 13:32-0500 Body weight 61.69 kg [facility] Work Phone: 11-07-2015 13:32-0500 Weight 61.69 kg [facility] Work Phone: 04-02-2013 16:26-0400 Body Temperature 98.4 [degF] [facility] Work Phone: 04-02-2013 16:26-0400 BP Diastolic 78 mm[Hg] [facility] Work Phone: 04-02-2013 16:26-0400 BP Systolic 124 mm[Hg] [facility] Work Phone: 04-02-2013 16:26-0400 Pulse (Heart Rate) 96 /min [facility] Work Phone: 04-02-2013 16:26-0400 Pulse Oximetry 100 % Edy Monaahn [facility] Work Phone: 04-02-2013 16:26-0400 Respiratory Rate 18 /min Edy Monahan [facility] Work Phone: 11-02-2011 13:50-0500 Height 173.99 cm Edy Monahan [facility] Work Phone: Procedures Date Procedure Procedure Detail Performing Clinician Start: 06-03-2017 End: 06-09-2017 Drain/inject, joint/bursa Edy Perla Hero Work Phone: Start: 01-21-2017 End: 01-21-2017 Documentation of current medications Edy Monahan Start: 06-25-2016 End: 07-11-2016 Drain/inject, joint/bursa Edy Perla Hero Work Phone: Start: 12-26-2015 End: 12-26-2015 Smoking cessation education Edy Monahan Start: 12-26-2015 End: 01-14-2016 Drain/inject, joint/bursa Edy Perla Monahan Work Phone: Start: 11-07-2015 End: 11-18-2015 Drain/inject, joint/bursa Edy Monahan Work Phone: Plan of Treatment Date Care Activity Detail Author Start: 06-03-2017 End: 06-03-2017 Appointment Appointment [facility] Work Phone: Start: 04-22-2017 End: 04-22-2017 Appointment Appointment [facility] Work Phone: Start: 03-23-2017 End: 03-23-2017 Appointment Appointment [facility] Work Phone: Start: 03-09-2017 End: 03-09-2017 Appointment Appointment [facility] Work Phone: Start: 02-21-2017 End: 02-21-2017 Appointment Appointment [facility] Work Phone: Start: 02-08-2017 End: 02-08-2017 Appointment Appointment [facility] Work Phone: Start: 02-08-2017 End: 02-08-2017 Appointment Appointment [facility] Work Phone: Start: 12-29-2016 End: 12-29-2016 Occupational Therapy General Occupational Therapy [facility], [address] [place] [address], [id number] [facility] Work Phone: Start: 12-26-2015 End: 12-26-2015 X-ray exam of elbow X-Ray, [place] Work Phone: Additional Source Comments FOR RECORDS PERTAINING TO PATIENTS WHO ARE OR HAVE BEEN ENROLLED IN A CHEMICAL DEPENDENCY/SUBSTANCEABUSE PROGRAM, SOME INFORMATION MAY BE OMITTED. This clinical summary was aggregated from multiple sources. Caution should be exercised in using it in the provision of clinical care. This summary normalizes information from multiple sources, and as a consequence, information in this document may materially change the coding, format and clinical context of patient data. In addition, data may be omitted in some cases. CLINICAL DECISIONS SHOULD BE BASED ON THE PRIMARY CLINICAL RECORDS. [facility]. provides no warranty or guarantee of the accuracy or completeness of information in this document.
== END | disposition home or self-care (01) ==
LOC: CT 14:34
PROVIDERS: PCP Family Medicine Geriatric Medicine; Referring Provider Nurse Practitioner Family; Visit Provider Nurse Practitioner Family
DX: Z87.891 Personal history of nicotine dependence (principal); Z12.2 Encounter for screening for malignant neoplasm of respiratory organs
CPT/HCPCS: 71271

== ENCOUNTER → 2023-12-28 | Outpatient (CLI) | payer OTHER, SELFPAY ==
[2023-12-28 17:03] LABS: Absolute Lymphocyte Count 3.08 X10^3/uL (0.83-4.51); Absolute Neutrophil Count 2.6 X10^3/uL (2.0-7.7); Basophil# 0.09 X10^3/uL; Basophil% 1.4 % (0-1); Eosinophil# 0.06 X10^3/uL; Eosinophils% 0.9 % (0-5); Hematocrit 38.3 % (37-47); Hemoglobin 12.6 g/dL (12.0-15.0); Lymphocyte # 3.08 X10^3/ul (0.83-4.51); Lymphocyte % 48.4 % (19-41); Mean Corp Hgb Conc 32.9 g/dL (32-36); Mean Corpuscular Volume 94.3 fL (81-99); Mean Platelet Vol. 10.3 fl (6.2-12.0); Monocyte# 0.57 X10^3/uL; NRBC Flagged by Analyzer 0 % (0-5); Neutrophil # 2.55 X10^3/uL (2.7-7.7); Neutrophil % 40.1 % (47-70); Platelet Count 425 K/mm3 (150-450); RBC Distribution Width CV 12.1 % (11.6-14.6); Red Blood Count 4.06 M/mm3 (4.2-5.4); White Blood Count 6.4 K/mm3 (4.4-11.0)
[2023-12-28 17:27] LABS: ALB/GLOB Ratio 1.1 RATIO (0.9-2.4); AST(SGOT) 33 U/L (15-37); Alanine Aminotransfer ALT/SGPT 33 U/L (13-56); Albumin, Serum 3.9 g/dL (3.2-5.0); Alkaline Phosphatase 100 U/L (45-117); Anion Gap 5 (5-15); BUN 21 mg/dL (7-18); BUN/Creat Ratio 32.9 RATIO (10-20); Calcium,Total 9.3 mg/dL (8.5-10.1); Chloride 105 mmol/L (98-107); Creatinine, Serum 0.64 mg/dL (0.55-1.02); EST Glomerular Filtration Rate 103 mL/min (>60); Est Glom Filt Rate - Afr Amer 124 mL/min (>60); Globulin 3.7 g/dL (2.2-4.2); Glucose 85 mg/dL (74-106); Protein, Total 7.6 g/dL (6.4-8.2); Sodium Level 138 mmol/L (136-145); Thyroid Stim Hormone (TSH) 2.49 uIU/mL (0.358-3.74)
== END | disposition home or self-care (01) ==
LOC: POLAB3 16:21
PROVIDERS: PCP Family Medicine Geriatric Medicine; Visit Provider Family Medicine Geriatric Medicine
DX: R53.83 Other fatigue (principal)
CPT/HCPCS: 36415; 80053; 84443; 85025

== ENCOUNTER → 2024-01-03 | Outpatient (CLI) | payer OTHER, SELFPAY ==
--- NOTE | 2024-01-03 13:12 | BI_ITS ---
MAMMOGRAPHY - BILATERAL SCREENING REASON FOR EXAM: Female, 53 years old. Routine annual screening examination. PERTINENT HISTORY: Aunt with breast cancer. TECHNIQUE: Digital bilateral breast tesfaye (3D mammographic acquisition) in the CC and MLO projections. 2-D mediolateral oblique (MLO) and craniocaudad (CC) views of both breasts were obtained. CAD: Full Field Digital Mammography with Computer Added Detection was performed. COMPARISON: Comparison is made with prior examination of January 14, 2022 and December 21, 2019. FINDINGS: Breast Composition: There are scattered areas of fibroglandular density. There is a 3.8 mm x 8.3 mm slightly spiculated nodule in the upper lateral aspect of the right breast. Correlation with ultrasound is recommended. No other significant abnormalities are identified. BI/SCRN MAMM (CAD)W/TESFAEY BILAT IMPRESSION: 3.8 mm x 8.3 mm slightly spiculated nodule in the upper lateral aspect of the right breast. Correlation with ultrasound is recommended. ASSESSMENT CATEGORY: BIRADS Category 0: Incomplete. Need additional imaging evaluation. A letter regarding these results will be sent to the patient by the facility within 30 days. Approximately 10% of breast cancers are not detected by mammography. A normal mammogram should not delay biopsy of a clinically suspicious abnormality. [id number] Electronically Signed: Vidal Álvarez MD at 13:55 EDT ,
== END | disposition home or self-care (01) ==
LOC: OPBI 13:09
PROVIDERS: PCP Family Medicine Geriatric Medicine; Referring Provider Family Medicine Geriatric Medicine; Visit Provider Family Medicine Geriatric Medicine
DX: Z12.31 Encounter for screening mammogram for malignant neoplasm of breast (principal); Z80.3 Family history of malignant neoplasm of breast
CPT/HCPCS: 77063; 77067

== ENCOUNTER → 2024-01-06 | Outpatient (CLI) | payer OTHER, SELFPAY ==
--- NOTE | 2024-01-06 13:39 | US_ITS ---
STUDY: ULTRASOUND BREAST - RIGHT REASON FOR EXAM: Female, 53 years old. Abnormal screening mammogram. TECHNIQUE: Axial and longitudinal images of the RIGHT breast were performed with a high resolution ultrasound transducer. # OF IMAGES: 45 COMPARISON: Comparison is made with prior mammogram dated January 03, 2024. FINDINGS: RIGHT Breast: The mammographic abnormality corresponds to a 6 mm by 8 mm x 5 mm hypoechoic solid nodule with a slightly irregular contour at the 10:00 position of the breast at 6 cm from the nipple. Biopsy recommended. US/Breast Limited Unilateral IMPRESSION: Suspicious 6 mm x 8 mm x 5 mm hypoechoic solid nodule at the 10:00 position of the breast at 6 summary from nipple. Biopsy recommended. ASSESSMENT CATEGORY: BIRADS Category 4: Suspicious - Biopsy Should Be Considered. A letter regarding these results will be sent to the patient by the facility within 30 days. Electronically Signed: Vidal Álvarez MD at 15:00 EDT ,
== END | disposition home or self-care (01) ==
PROVIDERS: PCP Family Medicine Geriatric Medicine; Referring Provider Family Medicine Geriatric Medicine; Visit Provider Family Medicine Geriatric Medicine
DX: N63.11 Unspecified lump in the right breast, upper outer quadrant (principal)
CPT/HCPCS: 76642

== ENCOUNTER → 2024-01-20 | Outpatient (CLI) | payer OTHER, SELFPAY ==
--- NOTE | 2024-01-20 | BRBX_PTH ---
PATIENT: FEDE HERZOG LOC: [facility]US U#:[id number] AGE/SX: 53/F ROOM: RE01/20/[address]: Dr. Em Hazel MD : 1970 BED: DIS: 01/20/2024 SPEC #: [id number] RECD: 01/20/24 08:32 STATUS: FERCHO JESSICA #: [id number] LUDA: 01/20/24 00:[address]: Em Hazel DEPT: SURGICAL PATHOLOGY RECD BY: Lucio Lai ENTERED: 01/20/24 10:18 SP TYPE: BREAST BX OTHR DR: Dr. Carrillo Driscoll MD Tissues: Right breast, NOS Procedures: Surgery Specimen Level IV HEADER OPERATION: Breast biopsy PRE-OP DIAGNOSIS: Right breast TISSUE SUBMITTED: Right breast mass 10 o'clock 6cm from the nipple MICROSCOPIC DIAGNOSIS Right breast mass, core biopsy: Invasive lobular carcinoma. See cancer synoptic report below. AM/mr 01/23/2024 COMMENT INVASIVE BREAST CANCER SUMMARY: Procedure: Needle core biopsy Specimen Laterality: Right breast Tumor site: Right breast 10 o'clock from nipple Histologic type: Invasive lobular carcinoma Provisional Histologic grade: 2 Tubule Differentiation Score: 3 Nuclear Pleomorphism Score: 2 Mitotic Rate Score: 1 Tumor Size ( greatest dimension): 4mm Ductal Carcinoma Insitu: Not identified Angiolymphatic Invasion: Not identified Microcalcifications: Not present Additional Findings: None Breast Marker Study: RF ER: >95%, moderate to strong intensity CA: >95%, moderate to strong intensity Her2: Equivocal (2+) Ki67: 20% [id number]: Not Amplified The above summary is in compliance with [employer] [place] Pathology (CAP) Cancer Protocols Checklist and [place] Joint Committee on Cancer (AJCC), Staging Manual, 8th Ed. Immunohistochemistry ([id number]) supports the above diagnosis. MICROSCOPIC DESCRIPTION Slides are reviewed. GROSS DESCRIPTION Received in fixative is one container labeled with the patient's name and designated Right breast mass 10 o'clock. The specimen consists of multiple irregular fragments of crawford-yellow fibroadipose tissue that in aggregate measure 2.5 x 1.0 x 0.1 cm. The specimen is totally submitted in one cassette. DANA/ 01/20/2024 TC:0 CPT:89992
--- NOTE | 2024-01-20 | IMM_PTH ---
PATIENT: FEDE HERZOG LOC: [facility] U#:[id number] AGE/SX: 53/F ROOM: RE01/20/[address]: Dr. Em Hazel MD : 1970 BED: DIS: 01/20/2024 SPEC #: [id number] RECD: 01/23/24 13:22 STATUS: FERCHO REQ #: [id number] LUDA: 01/20/24 00:[address]: Em Hazel DEPT: IMMUNOHISTOCHEMISTRY RECD BY: Elliott Ibarra ENTERED: 01/23/24 13:23 SP TYPE: IMMUNO OTHR DR: Dr. Carrillo Driscoll MD Tissues: Breast, NOS Procedures: CALPONIN-1 (add) CK5-6 (add) CK8 (add) E-CAD (add) HER2 LAVELLE (add) KI-67 (add) P53 (add) AK (add) P40 (add) MOC-31 (add) ER (initial) PHYSICIAN & INSTITUTION [address] [address] SPECIMEN INFORMATION: Tissue Source: Right breast mass Clinical Info: Right breast mass Specimen Number: [id number] CPT code: 01415,[id number] METHODOLOGY: Deparaffinized sections of prefer/formalin-fixed tissue or PAP/DQ stained slides are incubated with monoclonal/polyclonal antibodies/oligonucleotide probes. Localization is made via biotin free immunoperoxidase method. Appropriate controls are performed and reacted as expected. Results on target cell population are indicated in the following table: RESULTS: ANTIBODY / CLONE RESULT P53 (DO-7) positive, focal wild type pattern Ki-67 (30-9) positive, 20 % CK8 (23iqxfU47) positive CK5-6 (D5 & 1684) negative Calponin-1 (LC683D) negative P40 (BC28) negative E-Cad (ECH-6) negative MOC-31 (4561) positive, dim MORPHOMETRIC ANALYSIS ER (clone 6F11) positive (>95% moderate to strong intensity) AK (clone 16/1E2) positive (>95% moderate to strong intensity) Her-2Neu (clone CB11) Equivocal (2+) The prognostic test for HER2 is performed on formalin-fixed paraffin embedded tissue. A 3+ (positive) staining pattern is defined as intense, homogeneous, complete, circumferential membranous staining in >10% of contiguous tumor cells. A similar weak (2+) staining pattern is interpreted as equivocal. MIKEL follow-up testing is recommended for all equivocal cases. Positivity/negativity for ER/AK is reported if > or < 1% of the tumor cells are immuno- reactive, respectively. The ASCO/CAP criteria is used for scoring. Reference: Journal of Clinical Oncology, 2013; 31:6010-3132 & 2010; 16:2672-9172. Ischemic time: Less than one hour. Duration of fixation: 11 Hrs; Sample Adequate: Yes. These assays have not been validated on decalcified tissues. Results should be interpreted with caution given the likelihood of false negativity on decalcified specimens or fixation greater than 72 hours. Alternative testing methods (FISH/dualISH for Her2; gene expression for ER) are recommended, if applicable. Please notify the laboratory if additional testing is required. These tests were developed and their performance characteristics determined by [facility]. They may not have been cleared or approved by the U.S. Food and Drug Administration. The FDA has determined that such clearance or approval is not necessary. The above immunohistochemical/dualISH markers are ordered and reviewed by the Pathologist. INTERPRETATION: Right breast mass, biopsy: Infiltrating lobular carcinoma, grade 2. Positive for estrogen receptors (favorable prognostic indicator). Positive for progesterone receptors (favorable prognostic indicator). Negative for overexpression of JOP7eds. IN SITU HYBRIDIZATION (MIKEL) FOR HER2 Interpretation: Not Amplified HER2 : CEP-17 Ratio: 1.3 Average HER2 Signal: 2.6 Average CEP-17 Signal: 2.0 Number of Tumor Cells Scanned: 50 Interpretative Information: The INFORM HER2 Dual MIKEL DNA Probe Cocktail assay is performed on formalin-fixed paraffin embedded tissue and determines HER2 gene status by detecting HER2 copies via silver in situ hybridization (SISH) and Chromosome 17 copies via chromogenic red in situ hybridization on tumor cells. A minimum of 20 cells representing > 10% of contiguous and homogeneous invasive tumor cells were analyzed. HER2 gene status is classified as Non-amplified (HER2/Chr17 ratio < 2.0) or Amplified (HER2/Chr17 ratio greater than or equal to 2.0). If the resulting HER2/Chr17 ratio falls within 1.8 - 2.2 (Borderline), retesting by FISH is recommended. Reference: Annette AC, Gerda BARLOW, Tavia DG, et al: Recommendations for Human Epidermal Growth Factor Receptor 2 Testing in Breast Cancer: [place] Society of Clinical Oncology / College of [place] Pathologists Clinical Practice Guideline Update. J Clin Oncol 31:0340-2500, 2013. AM/ 01/25/2024
--- NOTE | 2024-01-20 07:37 | US_ITS ---
STUDY: ULTRASOUND BREAST - RIGHT REASON FOR EXAM: Female, 53 years old. Ultrasound-guided breast biopsy. TECHNIQUE: Axial and longitudinal images of the RIGHT breast were performed with a high resolution ultrasound transducer. # OF IMAGES: 25 COMPARISON: Comparison is made with prior study January 06, 2024. FINDINGS: RIGHT Breast: Under direct sonographic guidance, the surgeon perform multiple core biopsies of the 7 mm x 6 mm x 5 mm hypoechoic irregular nodule at the 10:00 position of the breast at 6 cm from the nipple. US/US Breast Biopsy 1st Lesion IMPRESSION: Sonographic guidance for core biopsies of the 7 mm x 6 mm x 5 mm hypoechoic irregular nodule at the 10:00 position of the breast at 6 cm from the nipple. ASSESSMENT CATEGORY: BIRADS Category 2: Benign. A letter regarding these results will be sent to the patient by the facility within 30 days. Electronically Signed: Vidal Álvarez MD at 12:58 EDT ,
--- NOTE | 2024-01-20 08:22 | OP.PCM_ITS ---
Report of Operation Date of Procedure: 01/20/24 Pre-Operative Diagnosis: right breast mass Post-Operative Diagnosis: Same Surgery/Procedure Performed:: Ultrasound-guided right breast biopsy Surgeon: Em Hazel Type of Anesthesia: Local Specimen's removed: Right breast mass 10:00 6 cm from the nipple Estimated Blood Loss (mL): < 10 CC Description of Procedure: Procedure: Right ultrasound-guided core biopsy Indications: 53 year-old female with hypoechoic nodule at 10:00 in the right breast 6 centimeters from the nipple. Risk benefits were discussed the patient and she elected to proceed with ultrasound guided core biopsy with clip placement Description of procedure: Patient was brought into the ultrasound room in the right breast was marked. A timeout was completed verifying correct patient, procedure, site, specially, prior to beginning procedure. The right breast was prepped and draped in usual sterile fashion and using local anesthesia was obtained with 1% lidocaine with epi. The lesion was located with the ultrasound. Small incision was made with 11 blade to introduced the mammotome through the skin. Under ultrasound guidance multiple core samples were obtained using then 13-gauge mammotome and sent in formalin for pathology. The [employer] Max[employer] ribbon clip was then deployed into the biopsy cavity under ultrasound guidance and a picture was taken. Upon completion procedure hemostasis was obtained and a Steri-Strip and OpSite were placed. Patient was then taken to the mammography suite for clip verification. The clip was verified. The patient tolerated the procedure well and was discharged from the breast imaging department good condition. Complications NON
== END | disposition home or self-care (01) ==
LOC: OPUS 07:36
PROVIDERS: PCP Family Medicine Geriatric Medicine; Referring Provider Surgery; Visit Provider Surgery
DX: N63.11 Unspecified lump in the right breast, upper outer quadrant (principal)
CPT/HCPCS: 19083; 81002; 88305; 88341; 88342

== ENCOUNTER → 2024-02-09 | Outpatient (CLI) | payer OTHER, SELFPAY ==
--- NOTE | 2024-02-09 13:17 | MRI_ITS ---
STUDY: BILATERAL BREAST MR WITHOUT AND WITH CONTRAST REASON FOR EXAM: Female, 53 years old. Biopsy-proven invasive ductal carcinoma of the right breast. TECHNIQUE: Multi-sequence multi-echo imaging of both breasts was performed with a dedicated breast coil. T1-weighted and T2-weighted images were performed before the administration of contrast. T1-weighted images were also performed after the intravenous administration of 15 mL of Clariscan contrast. COMPARISON: Screening mammogram dated January 14, 2022, January 03, 2024, unilateral right mammogram dated January 06, 2024 and ultrasound and ultrasound-guided biopsy images of the right breast dated January 20, 2024. FINDINGS: RIGHT BREAST: Predominantly fatty replaced breast tissue with no significant background enhancement. Irregular enhancing mass at the 10:00 position of the right breast approximately 6 cm from the nipple measuring approximately 8 mm in diameter. Tissue clip marker within the mass. Postbiopsy changes noted. LEFT BREAST: Fatty replaced breast tissue with no significant background enhancement. No abnormal enhancing masses or areas of non-mass enhancement in the left breast. No enlarged or abnormal lymph nodes. No abnormality in the visualized regions of the chest or liver. MRI/Breast Bilateral W/O and W IMPRESSION: 8 mm in diameter irregular enhancing mass at the 10:00 position of the right breast approximately 6 cm from the nipple corresponding to the index lesion. No other abnormality identified on the breast MRI without and with contrast. CATEGORY: BIRADS Category 6: Known Biopsy-Proven Malignancy - Appropriate Action Should Be Taken. A letter regarding these results will be sent to the patient by the facility within 30 days. Electronically Signed: Can Mitchell MD at 14:49 EDT ,
== END | disposition home or self-care (01) ==
LOC: MRI 13:12
PROVIDERS: PCP Family Medicine Geriatric Medicine; Referring Provider Surgery; Visit Provider Surgery
DX: C50.919 Malignant neoplasm of unspecified site of unspecified female breast (principal); N63.10 Unspecified lump in the right breast, unspecified quadrant
CPT/HCPCS: 77049; A9575; A4216; C8908

== ENCOUNTER 2024-02-21 13:07 | Outpatient (CLI) | payer OTHER, SELFPAY ==
--- NOTE | 2024-02-21 13:13 | BD_ITS ---
STUDY: DUAL ENERGY X-RAY ABSORPTIOMETRY / DXA REASON FOR EXAM: Female, 53 years old. BREAST CANCER TECHNIQUE: Bone Mineral Density (BMD) measurements of lumbar spine and bilateral hips were obtained. COMPARISON: None. FINDINGS: Lumbar Spine (L1-L4): g/cm2 (1.104) / T-score (0.8) / Z-score (1.9) Findings are suggestive of normal bone density with a low fracture risk. Left Femur Total: g/cm2 (0.821) / T-score (-1.0) / Z-score (right 0.3) Left Femoral Neck: g/cm2 (0.740) / T-score (-1.0) / Z-score (0.1) Right Femur Total: g/cm2 (0.831) / T-score (-0.9) / Z-score (-0.2) Right Femoral Neck: g/cm2 (0.738) / T-score (-1.0) / Z-score (0.1) BD/Dexa Bone Density Study IMPRESSION: The patient is considered normal as outlined below according to World Pako Organization (WHO) criteria with a low fracture risk. Reference Information: The T-score is the number of standard deviations above or below the standard which is normal for young adults at their peak bone mineral density. The World Health Organization (WHO) interprets the T-scores as follows: Above -1 Normal bone density Between -1 and -2.5 Osteopenia Equal to / or below -2.5 Osteoporosis As a practical clinical guideline, osteopenia may be graded as follows: Mild -1 through -1.5 Moderate -1.6 through -2.0 Severe -2.1 through -2.4 The Z-score is the number of standard deviations above or below age-matched controls. A Z-score of less than -1.5 would be considered abnormal. References: 1. NIH Osteoporosis and Related Bone Diseases www osteo.org 2. International Society for Clinical Densitometry www iscd.org 3. National Osteoporosis Foundation www nof.org Electronically Signed: Vidal Álvarez MD at 15:40 EDT ,
== END 2024-02-21 23:59 | disposition home or self-care (01) ==
LOC: OPBD 13:08
PROVIDERS: PCP Family Medicine Geriatric Medicine; Referring Provider Internal Medicine Medical Oncology; Visit Provider Internal Medicine Medical Oncology
DX: Z01.818 Encounter for other preprocedural examination (principal); I74.9 Embolism and thrombosis of unspecified artery; C50.411 Malignant neoplasm of upper-outer quadrant of right female breast; Z13.820 Encounter for screening for osteoporosis
CPT/HCPCS: 77080

== ENCOUNTER 2024-03-13 07:39 | Day surgery (SDC) | payer OTHER, SELFPAY ==
[2024-03-13] VITALS (10 sets, daily range): BP systolic 146–166; BP diastolic 74–105; PULSE 72–90; RESP 16; TEMP 36.6–36.8; O2SAT 94–100; BMI 25.1
--- NOTE | 2024-03-13 | IMM_PTH ---
PATIENT: FEDE HERZOG [place] [facility] [place][id number] AGE/SX: 53/F ROOM: RE03/13/[address]: Dr. Em Hazel MD : 1970 BED: DIS: 03/13/2024 SPEC #: [id number] RECD: 03/19/24 11:14 STATUS: FERCHO REQ #: [id number] LUDA: 03/13/24 00:[address]: Em Hazel DEPT: IMMUNOHISTOCHEMISTRY RECD BY: Elliott Ibarra ENTERED: 03/19/24 11:15 SP TYPE: IMMUNO OTHR DR: Dr. Carrillo Driscoll MD Tissues: A - Lymph node, NOS Procedures: CK7 (add) Pankeratin (initial) PHYSICIAN & INSTITUTION [place] [id number] SPECIMEN INFORMATION: Tissue Source: A- Right breast sentinel lymph node Clinical Info: Breast cancer, right Specimen Number: [id number] CPT code: 65818,16921 METHODOLOGY: Deparaffinized sections of prefer/formalin-fixed tissue or PAP/DQ stained slides are incubated with monoclonal/polyclonal antibodies/oligonucleotide probes. Localization is made via biotin free immunoperoxidase method. Appropriate controls are performed and reacted as expected. Results on target cell population are indicated in the following table: RESULTS: ANTIBODY / CLONE RESULT Block A AE1-3 (AE1/AE3/PCK26) negative CK7 (OV-TL12/30) negative These tests were developed and their performance characteristics determined by [facility]. They may not have been cleared or approved by the U.S. Food and Drug Administration. The FDA has determined that such clearance or approval is not necessary. The above immunohistochemical/dualISH markers are ordered and reviewed by the Pathologist. INTERPRETATION: A. Right breast sentinel lymph nodes, ultrasound guided biopsy: One lymph node, negative for metastatic carcinoma. DANA/ 03/20/2024
--- NOTE | 2024-03-13 07:33 | NM_ITS ---
CLINICAL: 53-year-old female with history of primary breast carcinoma presenting for preoperative injection for sentinel lymph node identification. 99m Tc SULFUR COLLOID SENTINEL NODE PRE-OPERATIVE INJECTION COMPARISON: None available TECHNIQUE: The patient was administered 4 individual intradermal injections totaling 1.2 mCi of filtered 99mTc sulfur colloid to the right breast, by the Nuclear medicine personnel. No image acquisitions were obtained. Electronically Signed: Connor Vilchis DO at 10:04 EDT , NM/Lymph Node Injection Only IMPRESSION: undefined
[2024-03-13] MEDS: Lactated Ringers 1,000 ML 15 ML IV (07:53)
--- NOTE | 2024-03-13 07:59 | PCM.PRE.AN2 ---
ASA Classification* ASA Classification ASA Classification: 2 Assessment & Plan Anesthesia* Anesthesia Assessment Anesthesia Assessment: Discussed sedation and/or anesthesia options, risks, benefits, and alternatives with patient/parents/legal guardian/POA. Questions invited. The patient/parents/legal guardian/POA seems to understand and agrees to proceed with anesthesia plan. Reviewed the physical assessment, medical history, allergy history and patient home medications list prior to surgery/procedure/anesthetic and documented any changes. Performed airway and anesthesia risk assessments. Anesthesia Type Anesthesia Type: General (see written pre anesthesia record for full assessment ) Anesthesia Focused Assessment* Temperature: 98.2 F Pulse Rate: 72 Blood Pressure: 146/74 Respiratory Rate: 16 Pulse Ox: 100 Airway Assessment Mouth opens: >3 cm Mallampati Score: II Focused Labs Anesthesia Preop lab: CBC WBC 6.4 K/mm3 (4.4-11.0) 12/28/23 16:21 RBC 4.06 M/mm3 (4.2-5.4) L 12/28/23 16:21 Hgb 12.6 g/dL (12.0-15.0) 12/28/23 16:21 Hct 38.3 % (37-47) 12/28/23 16:21 Plt Count 425 K/mm3 (150-450) 12/28/23 16:21 CHEMISTRY Potassium 4.0 mmol/L (3.5-5.1) 12/28/23 16:21 Sodium 138 mmol/L (136-145) 12/28/23 16:21 Magnesium 2.0 mg/dL (1.6-2.6) 02/12/20 06:40 BUN 21 mg/dL (7-18) H 12/28/23 16:21 Creatinine 0.64 mg/dL (0.55-1.02) 12/28/23 16:21 Glucose 85 mg/dL (74-106) 12/28/23 16:21 POC Glucose 89 mg/dL (70-110) 02/12/20 06:10 TSH 2.49 uIU/mL (0.358-3.74) 12/28/23 16:21 COAG PT 12.8 SECONDS (11.7-14.9) 07/14/16 17:05 Urine Test Negative Negative 02/08/17 05:40 Pre-Assessment Diagnosis/Proposed Procedure Planned Operative Procedure(s): U/S RIGHT LUMPECTOMY WITH SENTIAL LYMPH NODE BX WITH BLUE DYE AND RADIOTRACER Anesthesia History Anesthesia History - lock stitch channeler: Anesthesia History - lock stitch channeler Hx Hospitalization No 03/01/24 13:14 Any Problems With Anesthesia No 03/01/24 13:14 Cholinesterase deficiency No 03/01/24 13:14 You/Your Family Experience No 03/01/24 13:14 fever (hyperthermia) with Relationship Recent Exposure to Contagious No 03/13/24 07:48 Disease Does patient have nerve No 03/01/24 13:14 stimulator Patient instructed to have device shut off --Does patient have Pacemaker No 03/13/24 07:48 or ICD? When Was Last Pacemaker Check QUESTION #4 FULL TEXT: You/Your Family Experience fever (hyperthermia) with Anesthesia Last Oral Intake Last Oral intake: Last Oral Intake NPO since 22:00 03/13/24 07:48 Meds taken in AM with sips of water? Meds patient instructed to take am of surgery PONV PONV - lock stitch channeler: PONV - lock stitch channeler Female Yes 03/01/24 13:14 HX of Motion Sickness No 03/01/24 13:14 HX of N/V After Surgery No 03/01/24 13:14 Non-Smoker Yes 03/01/24 13:14 Duration of Surgery greater Yes 03/01/24 13:14 than 60 minutes Number of Risk Factors 3 03/01/24 13:14 PONV Score Moderate Risk 03/01/24 13:14 Height & Weight Height & Weight: Anesthesia: Height & Weight Height 5 ft 8 in 03/13/24 07:48 Weight: 75 kg 03/13/24 07:48 Body Mass Index (BMI) 25.1 03/13/24 07:48 Respiratory Assessment Respiratory Assessment - lock stitch channeler: Respiratory Tract Infection Hx - lock stitch channeler Hx Respiratory Tract Infection No 03/01/24 13:14 STOP Sleep Apnea STOP Sleep Apnea - lock stitch channeler: STOP Sleep Apnea - lock stitch channeler Hx Hypertension No 03/01/24 13:14 Hx Sleep Apnea No 03/01/24 13:14 CPAP No 02/14/24 07:32 BIPAP Do you snore loudly (louder No 03/01/24 13:14 than talking or can be heard Do you often feel tired/ No 03/01/24 13:14 fatigued/ sleepy during daytime? Has anyone observed you stop No 03/01/24 13:14 breathing during sleep? STOP Results Negative 03/01/24 13:14 QUESTION #5 FULL TEXT : Do you snore loudly (louder than talking or can be heard through closed doors)? 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 Specify any problems Hx of Preganancy in last 3 No 03/01/24 13:14 Months Nurse Filling Out Transfusion DSCHRIBER 03/01/24 13:14 & Questions: Date: 03/01/24 03/01/24 13:14 Time: 13:16 03/01/24 13:14 Patient unable to answer at this time (ie. confused, unrespo /Reproduction History /Reproductive History - lock stitch channeler: /Reproductive Hx- lock stitch channeler Hx Now No 03/01/24 13:14 Gestational Age (in weeks): EDC: Hx Hx Para Hx Section SAB No 03/01/24 13:14 Active Medications Active Medications: Current Medications Generic Name Dose Route Start Last Admin Trade Name Freq PRN Reason Stop Dose Admin Clindamycin Phosphate 900 mg in 50 mls @ 75 mls/hr 03/13/24 10:00 Cleocin IV 03/13/24 10:39 PREOP ONE Lactated Ringer's 1,000 mls @ 15 mls/hr 03/13/24 07:45 03/13/24 07:53 IV 15 mls/hr .Q48H DEEPAK Administration PFSH Medical History Post-menopausal Cancer History of steroid therapy Arthritis Migraine headache Former smoker History of pain when walking History of tobacco use Encounter for screening for malignant neoplasm of lung History of kidney stones History of Thoracic Fracture Back pain Anxiety Endometriosis Home Medications ?Medication ?Instructions ?Recorded ?Last Taken ?Type duloxetine 30 mg capsule,delayed 30 mg PO DAILY anx 07/19/16 03/13/24 History release multivitamin with folic acid 400 1 tab PO DAILY Check with primary 07/19/16 Unknown History mcg tablet doctor tizanidine 4 mg capsule (Zanaflex) 4 mg PO QHS Check with primary 01/18/20 Unknown History doctor meloxicam 7.5 mg tablet 7.5 mg PO DAILY 10/28/20 03/12/24 History buprenorphine 10 mcg/hour weekly 1 patch topical Q7D 12/25/20 Unknown History transdermal patch Allergy/AdvReac Type Severity Reaction Status Date / Time cephalexin (From Keflex) Allergy Rash Verified 03/13/24 07:47 Family History Mother Diabetes Arthritis Anemia Hypertension Grandfather Diabetes CVA (cerebral vascular accident) Grandmother Arthritis Surgical History Hx of thumb surgery H/O colectomy History of appendectomy H/O elbow surgery clavicle surgery History of back surgery H/O shoulder surgery History of left oophorectomy Social History Smoking Status: Former smoker alcohol intake: never substance use type: does not use caffeine: Yes what type of physical activity do you participate in: walking and other details: Horseback Riding seatbelt use: always do you feel safe at home: Yes additional social history: - [employer] and [facility] Review of Systems (Anesthesia) ROS Narrative System reviewed and no additional complaints, except as documented.
--- NOTE | 2024-03-13 08:50 | HP.PCM_ITS ---
History and Physical Date of Admission: 03/13/24 Date of Service: 02/24/24 MR#: [id number] Acct: [id number] Name: FEDE HERZOG Rep #: [id number] : 1970 Provider: Dr. Em Hazel MD Age/Sex: 53/F Location: [facility] Status: Signed Intake Vital Signs 01/30/2409:11 02/13/2407:32 02/23/2409:42 Height 5 ft 8 in 5 ft 8 in 5 ft 8 in Weight: 169 lb 1 oz 169 lb BMI 25.7 25.7 BP 144/84 H Blood Pressure Location Rt brachial Position Sitting Respiration 18 Pulse 70 Pulse Source Monitor Temp 97.5 F L Temp Source Temporal Pulse Oximetry (%) 98 Oxygen Delivery Method room air Intake Visit Reasons: DISCUSS BREAST SURGERY OPTIONS Chief Complaint: discuss breast surgery options Accompanied by: Sister Is patient in pain?: No Allergies cephalexin (From Keflex) Allergy (Verified 02/24/24 09:43) Rash Medications ?Medication ?Instructions ?Recorded ?Confirmed ?Type duloxetine 30 mg capsule,delayed 30 mg PO DAILY anx 07/19/16 02/24/24 History release multivitamin with folic acid 400 1 tab PO DAILY Check with primary 07/19/16 02/24/24 History mcg tablet doctor tizanidine 4 mg capsule (Zanaflex) 4 mg PO QHS Check with primary 01/18/20 02/24/24 History doctor meloxicam 7.5 mg tablet 7.5 mg PO ONCE 10/28/20 02/24/24 History buprenorphine 10 mcg/hour weekly 1 patch topical DIRECTED 12/25/20 02/24/24 History transdermal patch PFSH Medical History History of tobacco use Encounter for screening for malignant neoplasm of lung History of kidney stones History of Thoracic Fracture Back pain Anxiety Endometriosis Surgical History H/O colectomy History of appendectomy H/O elbow surgery clavicle surgery History of back surgery H/O shoulder surgery History of left oophorectomy Family History Mother Diabetes Arthritis Anemia HypertensionGrandfather Diabetes CVA (cerebral vascular accident)Grandmother Arthritis Social History Smoking Status: Former smoker alcohol intake: never substance use type: does not use caffeine: Yes what type of physical activity do you participate in: walking and other details: Horseback Riding seatbelt use: always do you feel safe at home: Yes additional social history: - [employer] and [facility] [facility] Female Reproductive History Menstrual Date of menopause: 06/12/17 Ab spontaneous: 1 HPI HPI HPI: 53-year-old female presents for discussion of surgical treatment of right i nvasive lobular breast cancer along with her sister. Patient's MRI only showed the known area about 8 mm in size on the right nothing on the left breast. ROS General General: No weight change, appetite, fatigue, colon cancer, breast cancer or weakness HEENT HEENT: No difficulty swallowing, eye injury, eye surgery, swollen glands or h oarseness Endo Endocrine: No thyroid disease, diabetes mellitus, thyroid cancer, Hair loss, heat intolerance or cold intolerance Skin Skin: No rash or changing moles Breast Breast: No left breast lump, right breast lump, nipple discharge, breast pain, abnormal mammogram, abnormal US or breast enlargement Musc Musculoskeletal: Yes back problems and arthritis; No rheumatoid arthritis, gout or joint pain Cardio Cardiovascular: No murmur, pacemaker, heart disease, atrial fibrillation, high blood pressure, heart attack, heart stent, palpitations, shortness of breat with exertion or chest pain Psych Psychiatric: No depression, anxiety or hearing voices Resp Respiratory: No shortness of breath, No sleep apnea, No cough, No COPD, No asthma, No emphysema and No wheezing Gastro Gastrointestinal: No abdominal pain, No nausea or vomiting, No diarrhea, No constipation, No blood in stool, No acid reflux, No hemorrhoids, No ulcers, No gallbladder problem and No black,tarry stools [place] Hematologic: No blood thinners, No blood disorders, No bleeding, No anemia and No blood clots Neuro Neurologic: No system reviewed and no additional complaints, except as documented, No as per HPI, No abnormal gait, No abnormal hearing, No abnormal movements, No abnormal speech, No behavioral changes, No burning sensations, No confusion, No convulsions, No disequilibrium, No dizziness, No localized weakness, No frequent falls, No headache(s), No lack of coordination, No loss of vision, No memory loss, Yes numbness, No other visual disturbances, No radicular pain, No restless legs, No sensory deficit, No syncope, Yes tingling, No tremor(s), No weakness and No other Exam Const General: cooperative, healthy appearing and no acute distress [facility] Head: normal to inspection Chest Other: Right breast: Fibroglandular tissue, about a 1 cm mass felt about 10:00 5 cm from the nipple does correspond with ultrasound lesion?well-healed biopsy site, no nipple discharge or pain, no change in overlying skin Resp Effort & Inspection: normal respiratory effort Cardio Rate: regular rate GI Inspection: non-distended Palpation: soft Skin General: no rashes or lesions noted Neuro General: patient oriented x3 Extrem General: no clubbing, cyanosis or edema Psych Affect: normal affect Assessment and Plan Assessment and Plan (1) Breast cancer: Status: Acute Qualifiers: Breast location: upper outer quadrant of breast Estrogen receptor status: positive Patient sex: female Laterality: right Qualified Code(s): C50.411 - Malignant neoplasm of upper-outer quadrant of right female breast; Z17.0 - Estrogen receptor positive status [ER+] Comment: Right breast Lobular carcinoma-clinically stage I (cT1 N0 M0), tumor size 8mm, grade 2, ER >95%, IL >95%, Her2 FISH negative. Discussed options Lumpectomy vs Mastectomy, Post-operative radiation, Hormonal therapy, low benefit of chemotherapy for her stage of disease since she is post- menopausal. Pt wants to go with Lumpectomy followed by Radiation depending on MRI results. Orders: Orders Lymph Node Injection Only Today C50.411 - Malignant neoplasm of upper-outer quadrant of right female breast, N63.10 - Unspecified lump in the right breast, unspecified quadrant, Z17.0 - Estrogen receptor positive status [ER+] Plan I have given the patient options for initial surgical treatment. Options are the following: lumpectomy followed by radiation therapy vs. mastectomy vs. mastectomy followed by immediate reconstruction. I have described the procedures to the patient. I have described the advantages and disadvantages of the options, but I have told the patient that among the options, the survival rate for breast cancer is the same. I have told the patient that with all the surgeries that a sentinel lymph node biopsy is required. I have described the procedure of sentinel lymph node biopsy to the patient. I have told the patient that if the biopsy is positive for metastatic disease in 3 or more lymph nodes, then a full axillary lymph node dissection is required. I have told the patient that adjuvant chemotherapy will be required should the lymph nodes reveal metastatic disease. Also, a full lymph node dissection will increase the risk for lymphedema, especially if there are 4 or more lymph nodes positive for metastatic disease and radiation to the axilla is also required. I have told the patient the risks of surgery, including but not limited to: infection, bleeding, scar tissue, seroma and persistent seroma, lymph leak, injury to any blood vessels, injury to any nerves (particularly the long thoracic, the thoracodorsal, and the second intercostal brachial and the resultant sequelae), lymphedema, cosmetic deformity, dysesthesias, wound infections, further surgery (especially if margins are not clear), complications of anesthesia, etc. the patient understands. After all options were presented for surgical treatment patient elected to proceed with ultrasound-guided right breast lumpectomy, sentinel lymph node biopsy with nuclear tracer and blue dye injection, possible axillary lymph node dissection. I have answered all the patient?s questions at this point to her satisfaction and she has no further questions. Em Hazel M.D. Pager: [phone] [facility] [address] [place] [address], [address] [place] [address] Office: [phone] Coding Level of Care Code Off vis,est,level 4 Diagnoses Malignant neoplasm of upper-outer quadrant of right breast in female, estrogen receptor positive C50.411; Z17.0 Breast location: upper outer quadrant of breast Estrogen receptor status: positive Patient sex: female Laterality: right 02/24/24 1419 <Electronically signed by Em Hazel MD> Date Em Hazel MD
[2024-03-13] MEDS: Clindamycin 900 MG/50 ML BAG 75 MG IV (09:55)
[2024-03-13] MEDS: 0.9% Normal Saline (Pres. free 10 ML Vial (10:00)
[2024-03-13] MEDS: Isosulfan Blue 1% 5 ML Vial ×2 (10:00→10:37)
--- NOTE | 2024-03-13 11:07 | LYMN_PTH ---
PATIENT: FEDE HERZOG [place] [facility] [id number] AGE/SX: 53/F ROOM: RE03/13/[address]: Dr. Em Hazel MD : 1970 BED: DIS: 03/13/2024 SPEC #: [id number] RECD: 03/13/24 11:22 STATUS: FERCHO JESSICA #: [id number] LUDA: 03/13/24 11:[address]: Em Hazel DEPT: SURGICAL PATHOLOGY RECD BY: Elliott Ibarra ENTERED: 03/13/24 11:22 SP TYPE: LYMPH NODE OTHR DR: Dr. Carrillo Driscoll MD Tissues: A - LYMPH NODE BIOPSY B - Right breast, NOS C - Right breast, NOS Procedures: Frozen Section (charge) Surgery Specimen Level IV Surgery Specimen Level HEADER OPERATION: Ultrasound guided right breast, lumpectomy, sentinel lymph node PRE-OP DIAGNOSIS: Breast cancer, right TISSUE SUBMITTED: A- Right breast sentinel lymph node, B- Right breast lumpectomy- long stitch, superior, short stitch, lateral, C- Right breast new superior margin- long stitch- lateral, short stitch is new superior margin FROZEN SECTION DIAGNOSIS A. Right sentinel lymph node, biopsy: One lymph node, negative for metastatic carcinoma. [facility] 03/13/2024 MICROSCOPIC DIAGNOSIS A. Right sentinel lymph node, biopsy: One lymph node, negative for metastatic carcinoma. See comment. B. Right breast, lumpectomy with needle localization: Invasive lobular carcinoma. See cancer summary in the comment section. C. Right breast, new superior margin, excision: Negative for carcinoma. [facility] 03/19/2024 COMMENT A. The lymph node is negative for metastatic carcinoma on multiple H & E levels and immunohisto-chemical stains for cytokeratins ([id number]). BREAST CANCER SUMMARY Procedure - lumpectomy with needle localization Specimen laterality - right Tumor site - 10 o'clock, 6.0cm from nipple Tumor size - 0.7 x 0.7 x 0.5cm Histologic type - Invasive lobular carcinoma Histologic grade (Lawson grade): Glandular/tubular differentiation score - 3 Nuclear pleomorphism score - 2 Mitotic count score - 1 Overall grade - grade 2 (score of 6) Tumor focality - Single focus of invasive carcinoma Ductal carcinoma in situ - Not identified Lobular carcinoma in situ - Not identified Tumor extension: Skin - Not applicable Nipple - Not applicable Skeletal muscle - Not present Margins: Invasive carcinoma margin -- the tumor is 0.3cm away from the closest superior margin in lumpectomy specimen and additional margin measures 1.0cm in thickness and negative for carcinoma Ductal carcinoma in situ margin - Not applicable Regional lymph nodes: Number of lymph nodes examined - 1 Number of sentinel lymph nodes examined - 1 Number of lymph nodes with macrometastases, micrometastases or isolated tumor cells - 0 Distal metasis- Not applicable Treatment effect - no known presurgical therapy. Lymphvascular invasion - Not identified Dermal lymphvascular invasion - Not applicable Additional Pathologic Findings - Fibrocystic changes Ancillary Studies: Previously performed on section of tumor ([id number] / [id number]) ER: positive (>95%), moderate to strong intensity OH: positive, (> 95%), moderate to strong intensity [id number]: Equivocal ( 2+) Ki67: 20% [id number] dual lincoln: Not amplified Microcalcifications - None Clinical History - Please make reference to previous specimen [id number] with diagnosis of invasive lobular carcinoma. PATHOLOGIC STAGE: pT1b pN0s pMx The above summary is in compliance with [employer] (CAP) Cancer Protocols Checklist and [employer] [employer] on Cancer (AJCC), Staging Manual, 8th Ed. MICROSCOPIC DESCRIPTION Slides are reviewed. GROSS DESCRIPTION A. Received fresh for frozen section diagnosis labeled with the patient's name is a specimen designated Right sentinel lymph node. The specimen consists of a piece of adipose tissue containing one nodule measuring 3.0 x 1.5 x 1.0cm. The nodule consistent with lymph node measures 2.0cm in greatest dimension. The specimen is bisected and submitted entirely for frozen section diagnosis in one cassette. [facility] 03/13/2024 B. Received fresh for frozen section intraoperative consultation labeled with the patient's name is a specimen designated Right breast lumpectomy. The specimen consists of a piece of fibroadipose tissue with needle localization measuring 4.0 x 3.0 x 2.0cm. The specimen is inked as follows: anterior - yellow, posterior - black, superior - blue, inferior - green, medial - red and lateral - orange. This specimen is serially sectioned and reveal a crawford induarated mass measuring 0.7 x 0.7 x 0.5cm. This mass is close to the superior margin of the specimen. This information is conveyed to the surgeon intraoperatively. Section of the rest of this specimen reveal crawford-yellow adipose cut surfaces mixed with crawford-white fibrous areas. The entire specimen is submitted in nine cassettes as follows: 1-Perpendicular medial and lateral margin, 2 and 3- entire tumor, 4 and 5- customer engagement representative section adjacent to the tumor, 6-9- rest of the specimen. Sections are submitted after additional fixation. [facility] 03/14/2024 C. Received is one container labeled with the patient's name and not further designated. The specimen consists of a piece of fibroadipose tissue measuring 2.5 x 1.5 x 1.0cm. The specimen is inked as follows: new superior margin- black, lateral margin- orange, medial margin- red, old margin- blue. This specimen is serially sectioned and submitted entirely in two cassettes (cassette 1 contains medial portion, cassette 2 contains lateral portion). [facility] 03/14/2024 TC:0 [facility]: [id number] ADDENDUM ADDENDUM ADDENDUM ADDENDUM ADDENDUM ADDENDUM ADDENDUM ADDENDUM ADDENDUM ADDENDUM ADDENDUM ADDENDUM ADDENDUM ADDENDUM ADDENDUM ADDENDUM ADDENDUM ADDENDUM ADDENDUM ADDENDUM ADDENDUM ADDENDUM ADDENDUM ADDENDUM ADDENDUM ADDENDUM ADDENDUM ADDENDUM ADDENDUM ADDENDUM 04/06/2024 10:00 ADDENDUM 04/06/2024 10:00 ADDENDUM 04/06/2024 10:00 ADDENDUM 04/06/2024 10:00 ADDENDUM 04/06/2024 10:00 NODE NEGATIVE RECURRENCE SCORE RESULT: 32 DISTANT RECURRENCE RISK AT 9 YEARS: 20% GROUP AVERAGE ABSOLUTE CHEMOTHERAPY BENEFIT: >15% PREMENOPAUSAL RECURRENCE SCORE RESULT: 32 DISTANT RECURRENCE RISK AT 5 YEARS: >12% GROUP AVERAGE ABSOLUTE CHEMOTHERAPY BENEFIT: For N1 premenopausal women with a Recurrence Score result of 26-100, guidelines recommend chemotherapy in addition to hormone therapy. POSTMENOPAUSAL RECURRENCE SCORE RESULT: 32 DISTANT RECURRENCE RISK AT 5 YEARS: 19% GROUP AVERAGE ABSOLUTE CHEMOTHERAPY BENEFIT: For N1 premenopausal women with a Recurrence Score result of 26-100, guidelines recommend chemotherapy in addition to hormone therapy. NODE NEGATIVE (>4) RECURRENCE SCORE RESULT: 32 DISTANT RECURENCE RISK AT 9 YEARS: 69%
--- NOTE | 2024-03-13 11:08 | BI_ITS ---
SURGICAL BREAST SPECIMEN RADIOGRAPH CLINICAL: Document presence of tissue clip marker in biopsy specimen. FINDINGS: Specimen shows presence of tissue clip marker. Pathology is pending and an addendum to the biopsy report will be performed after the final pathologic diagnosis is rendered. Electronically Signed: Connor Lu MD at 19:06 EDT , BI/Breast Biopsy Specimen IMPRESSION: undefined
--- NOTE | 2024-03-13 11:29 | PCM.OPRPT ---
Report of Operation Date of Procedure: 03/13/24 Pre-Operative Diagnosis: Right breast cancer Post-Operative Diagnosis: Same Surgery/Procedure Performed:: Ultrasound-guided right lumpectomy, sentinel lymph node biopsy, injection of Lymphazurin and nuclear tracer Description of Surgical Findings:: 1 out of 1 lymph node negative on frozen, 10 count 749 Surgeon: Em Hazel electronics engineering professor: Greta Alvarez Type of Anesthesia: General/Supplemental Anesthesiologist: Caleb Dempsey Special Medications: Clindamycin 900 mg IV x 1 Specimen's removed: 1. Right sentinel node, 2. Right lumpectomy, 3. New superior margin Estimated Blood Loss (mL): <10 cc Description of Procedure: Synoptic Portion: Element Response Options Operation performed with curative intent. Yes Tracer(s) used to identify sentinel nodes in the upfront surgery (non-neoadjuvant) setting (select all that apply). Dye; Radioactive tracer Tracer(s) used to identify sentinel nodes in the neoadjuvant setting (select all that apply). N/A. All nodes (colored or non-colored) present at the end of a dye-filled lymphatic channel were removed. Yes All significantly radioactive nodes were removed. Yes All palpably suspicious nodes were removed. N/A. Biopsy-proven positive nodes marked with clips prior to chemotherapy were identified and removed. N/A. In AC the breast tissue was injected with TC-9 9 sulfur colloid. >90 minutes later the patient was taken to the operating room and general anesthesia was induced. 5 cc of Lymphazurin 1% blue dye was injected in the 4 quadrants periareolar along with 10 cc of normal saline. This was massaged gently for 5 minutes. The right breast and axilla were prepped and draped in usual sterile fashion. A timeout was completed verifying correct patient, procedure, site, positioning, special equipment prior to beginning procedure. Handheld gamma probe was used to identify the location of the hottest spot in the axilla. Prior to the incision, the counts were 20. The incision was made in the hot and blue was identified. The probe was placed in contact with the node in the 10 count was 749. The bed of the node measured 4 counts. No additional blue or hot nodes or palpable were detected. Frozen had 1 negative node. Ultrasound was use for localization of the breast mass using the BARD needle. The wire was placed just inferiorly to the mass. A curvilinear incision was planned in such a way as to minimize the amount of dissection to reach the mass. Flaps were raised in the location of the wire confirmed. The wire was delivered into the wound. 2 silk [id number] stay suture was placed around the wire and used for traction. Dissection was then taken down circumferentially, taking care to include the entire localization needle and wide margin of grossly normal tissue. The specimen and entire localizing wire were removed. The specimen was oriented and sent to radiology with the localization studies. Confirmation was received that the entire target lesion had been resected. 3 medium clips were placed in the line at the deep area of the cavity. An additional superior margin was taken and oriented and sent to pathology. The cavities were irrigated with sterile water. Hemostasis was checked. The breast and axillary incisions were closed with interrupted sutures of 3-0 Vicryl and subcuticular sutures of 4-0 Monocryl. No attempt was made to close the space. Dermabond and supportive bra placed. The patient tolerated procedure well was taken to the postanesthesia care in stable condition Complications none
--- NOTE | 2024-03-13 11:38 | EX.PCM.DISCH ---
Discharge Instructions Diet Discharge Diet: No restrictions Activity Discharge Activity: May Not Drive (for 2-3 days or while taking narcotic pain meds.) May shower in (days): 1 Lifting Restrictions: 10 pounds for 1 week. Dressing / Incision Call your doctor if your incision/area has: Continuous Slow Oozing, Sudden Increased Bleeding, Increased Pain/ Swelling and Increased Redness Call your doctor if you observe: Fever of 101 or Higher Suture Line Care: Avoid Pulling/Pushing and Avoid Pinching/Bending Remove Dressing in: 1 day Additional Dressing/Incision Instructions:: Remove bulky dressing tomorrow. May leave op-site dressing for 3-4 days. Dermabond (glue) was used at the axillary incision this may start to peel off in about 5 days. Okay to remove Steri-Strips from the breast incision in 7 to 10 days. Follow Up Care Please Follow Up With: Em Hazel MD When: Please call [phone] for an appointment to be seen in 2 week. Test Results: Test results from this visit will be discussed in further detail at your follow-up appointment, if applicable. Discharge Plan Admission Attending Provider: Em Hazel Primary Care Provider: Carrillo Driscoll Chi Instructions Print Language: Macedonian Discharge Orders/Prescriptions Prescriptions: New hydrocodone-acetaminophen 5-325 mg tablet 1 tab PO Q6H PRN (Reason: pain) 3 Days Qty: 10 0RF Continued tizanidine [Zanaflex] 4 mg capsule 4 mg PO QHS meloxicam 7.5 mg tablet 7.5 mg PO DAILY buprenorphine 10 mcg/hour patch weekly 1 patch TOPICAL Q7D Patient Comments: APPLY 1 PATCH EVERY 7 DAYS FOR 28 DAYS duloxetine 30 MG capsule 30 mg PO DAILY Patient Comments: ANXIETY, PAIN multivitamin with folic acid 1 TABLET tablet 1 tab PO DAILY Patient Comments: SUPPLEMENT Referrals / Follow Up: Carrillo Driscoll Chi, MD [Primary Care Provider] - Disposition Disposition (needs filled in before D/C Order can be placed): Home, Self Care
[2024-03-13] MEDS: Bupivacaine 0.25% 30 ML Vial (11:47)
--- NOTE | 2024-03-13 12:03 | PCM.POST.ANE ---
Anesthesia: Postop Eval I Current Vital Signs Temperature: 97.8 F Pulse Rate: 88 Blood Pressure: 156/93 Respiratory Rate: 16 Pulse Ox: 96 Oxygen Delivery Method: Room Air Assessment Airway patent: Yes Spontaneous unlabored respirations: Yes Mental status: Awake and Calm nausea: No Vomiting: No Anesthesia Complication: No Fluid Hydration Crystalloid volume administer (ml): 1,000 Total IV fluid infused: 1,000 Progress Note Anesthesia document: Postop Eval 1 completed: Yes
--- NOTE | 2024-03-13 17:10 | POSTOPAN2_ITS ---
Anesthesia Postop Eval I Sum Postop Eval Completion status Anesthesia document: Postop Eval 1 completed: Yes Anesthesia Postop Eval I Summary Anesthesia Postop Eval I Summary: Anesthesia Postop Eval I: Assessment Summary Airway patent Yes 03/13/24 12:04 OXIDIZED FINISH PLATER.JAVIEROBMargarita Spontaneous unlabored Yes 03/13/24 12:04 OXIDIZED FINISH PLATER.LAURY respirations Mental status Awake,Calm 03/13/24 12:04 OXIDIZED FINISH PLATER.LAURY nausea No 03/13/24 12:04 OXIDIZED FINISH PLATER.LAURY Vomiting No 03/13/24 12:04 OXIDIZED FINISH PLATERKILLIAN Anesthesia Postop Eval I: Fluid Summary Crystalloid volume administer 1,000 03/13/24 12:04 OXIDIZED FINISH PLATER.LAURY (ml) Colloids volume administered ( ml) Blood Product volume administered (ml) Total IV fluid infused 1,000 03/13/24 12:04 OXIDIZED FINISH PLATER.LAURY Anesthesia Postop Eval I: Summary Notes Anesthesia Complication No 03/13/24 12:04 OXIDIZED FINISH PLATERKILLIAN Anesthesia Complication Comment: Post-operative progress note Anesthesia: Postop Eval II Evaluation Mental status: Awake and Calm Pain Level: 1 nausea: No Vomiting: No
--- NOTE | 2024-03-13 17:10 | PCM.POSTANE2 ---
Anesthesia Postop Eval I Sum Postop Eval Completion status Anesthesia document: Postop Eval 1 completed: Yes Anesthesia Postop Eval I Summary Anesthesia Postop Eval I Summary: Anesthesia Postop Eval I: Assessment Summary Airway patent Yes 03/13/24 12:04 PLAYROOM ATTENDANT.JAVIEROBMargarita Spontaneous unlabored Yes 03/13/24 12:04 PLAYROOM ATTENDANT.LAURY respirations Mental status Awake,Calm 03/13/24 12:04 PLAYROOM ATTENDANT.LAURY nausea No 03/13/24 12:04 PLAYROOM ATTENDANT.LAURY Vomiting No 03/13/24 12:04 PLAYROOM ATTENDANTKILLIAN Anesthesia Postop Eval I: Fluid Summary Crystalloid volume administer 1,000 03/13/24 12:04 PLAYROOM ATTENDANT.LAURY (ml) Colloids volume administered ( ml) Blood Product volume administered (ml) Total IV fluid infused 1,000 03/13/24 12:04 PLAYROOM ATTENDANT.LAURY Anesthesia Postop Eval I: Summary Notes Anesthesia Complication No 03/13/24 12:04 PLAYROOM ATTENDANTKILLIAN Anesthesia Complication Comment: Post-operative progress note Anesthesia: Postop Eval II Evaluation Mental status: Awake and Calm Pain Level: 1 nausea: No Vomiting: No
== END 2024-03-13 13:17 | disposition home or self-care (01) ==
LOC: SDC 07:39 → AC 07:41
PROVIDERS: PCP Family Medicine Geriatric Medicine; Referring Provider Surgery; Visit Provider Surgery
PROC: 0HBV0ZZ Excision of Bilateral Breast, Open Approach (ICD-10-PCS; CPT 19302; principal; 2024-03-13 09:45)
DX: C50.411 Malignant neoplasm of upper-outer quadrant of right female breast (principal); M99.01 Segmental and somatic dysfunction of cervical region; M99.02 Segmental and somatic dysfunction of thoracic region; M99.03 Segmental and somatic dysfunction of lumbar region; M99.05 Segmental and somatic dysfunction of pelvic region; F41.9 Anxiety disorder, unspecified; Z79.899 Other long term (current) drug therapy; Z87.891 Personal history of nicotine dependence; Z17.0 Estrogen receptor positive status [ER+]
CPT/HCPCS: 19301; 38500; 38900; 00400; 38792; 76098; 88305; 88309; 88331; 88341; 88342; A4648; A9541; J7120; J2405; J3490; Q9968

== ENCOUNTER 2024-04-16 11:30 | Day surgery (SDC) | payer OTHER, SELFPAY ==
[2024-04-16] VITALS (7 sets, daily range): BP systolic 114–158; BP diastolic 71–80; PULSE 70–89; RESP 14–16; TEMP 36.3–36.5; O2SAT 99–100; BMI 24.9
--- NOTE | 2024-04-16 11:54 | PCM.PRE.AN2 ---
ASA Classification* ASA Classification ASA Classification: 2 Assessment & Plan Anesthesia* Anesthesia Assessment Anesthesia Assessment: Discussed sedation and/or anesthesia options, risks, benefits, and alternatives with patient/parents/legal guardian/POA. Questions invited. The patient/parents/legal guardian/POA seems to understand and agrees to proceed with anesthesia plan. Reviewed the physical assessment, medical history, allergy history and patient home medications list prior to surgery/procedure/anesthetic and documented any changes. Performed airway and anesthesia risk assessments. Anesthesia Type Anesthesia Type: MAC (*see written pre anesthesia record for full assessment) Anesthesia Focused Assessment* Airway Assessment Mouth opens: >3 cm Mallampati Score: II Focused Labs Anesthesia Preop lab: CBC WBC 6.7 K/mm3 (4.4-11.0) 03/20/24 14:50 RBC 4.60 M/mm3 (4.2-5.4) 03/20/24 14:50 Hgb 14.1 g/dL (12.0-15.0) 03/20/24 14:50 Hct 42.3 % (37-47) 03/20/24 14:50 Plt Count 386 K/mm3 (150-450) 03/20/24 14:50 CHEMISTRY Potassium 3.7 mmol/L (3.5-5.1) 03/20/24 14:50 Sodium 135 mmol/L (136-145) L 03/20/24 14:50 Magnesium 2.0 mg/dL (1.6-2.6) 02/12/20 06:40 BUN 21 mg/dL (7-18) H 03/20/24 14:50 Creatinine 0.75 mg/dL (0.55-1.02) 03/20/24 14:50 Glucose 90 mg/dL (74-106) 03/20/24 14:50 POC Glucose 89 mg/dL (70-110) 02/12/20 06:10 TSH 2.49 uIU/mL (0.358-3.74) 12/28/23 16:21 COAG PT 12.8 SECONDS (11.7-14.9) 07/14/16 17:05 Urine Test Negative Negative 02/08/17 05:40 Pre-Assessment Diagnosis/Proposed Procedure Planned Operative Procedure(s): PORT PLACEMENT Anesthesia History Anesthesia History - polyethylene combiner: Anesthesia History - polyethylene combiner Hx Hospitalization No 04/13/24 14:47 Any Problems With Anesthesia No 04/13/24 14:47 Cholinesterase deficiency No 04/13/24 14:47 You/Your Family Experience No 04/13/24 14:47 fever (hyperthermia) with Relationship Recent Exposure to Contagious No 03/13/24 07:48 Disease Does patient have nerve No 04/13/24 14:47 stimulator Patient instructed to have device shut off --Does patient have Pacemaker or ICD? When Was Last Pacemaker Check QUESTION #4 FULL TEXT: You/Your Family Experience fever (hyperthermia) with Anesthesia Last Oral Intake Last Oral intake: Last Oral Intake NPO since Meds taken in AM with sips of water? Meds patient instructed to take am of surgery PONV PONV - polyethylene combiner: PONV - polyethylene combiner Female Yes 04/13/24 14:47 HX of Motion Sickness No 04/13/24 14:47 HX of N/V After Surgery No 04/13/24 14:47 Non-Smoker Yes 04/13/24 14:47 Duration of Surgery greater Yes 04/13/24 14:47 than 60 minutes Number of Risk Factors 3 04/13/24 14:47 PONV Score Moderate Risk 04/13/24 14:47 Height & Weight Height & Weight: Anesthesia: Height & Weight Height 5 ft 8 in 04/13/24 13:56 Respiratory Assessment Respiratory Assessment - polyethylene combiner: Respiratory Tract Infection Hx - polyethylene combiner Hx Respiratory Tract Infection No 04/13/24 14:47 STOP Sleep Apnea STOP Sleep Apnea - polyethylene combiner: STOP Sleep Apnea - polyethylene combiner Hx Hypertension No 04/13/24 14:47 Hx Sleep Apnea No 04/13/24 14:47 CPAP No 04/13/24 14:47 BIPAP Do you snore loudly (louder No 04/13/24 14:47 than talking or can be heard Do you often feel tired/ No 04/13/24 14:47 fatigued/ sleepy during daytime? Has anyone observed you stop No 04/13/24 14:47 breathing during sleep? STOP Results Negative 04/13/24 14:47 QUESTION #5 FULL TEXT : Do you snore loudly (louder than talking or can be heard through closed doors)? Tobacco Use History Tobacco Use History - polyethylene combiner: Tobacco Use History - polyethylene combiner Tobacco Use Smoking Status Former smoker 04/13/24 14:47 Hx Tobacco Use No 04/13/24 14:47 Years Smoking Packs Smoked per Day Smoking Cessation Date was Yes - quit smoking within 15 04/13/24 14:47 within the last 15 years years Hx Smoking Cessation Date 09/12/11 04/13/24 14:47 Hx Smoking Cessation No 04/13/24 14:47 Counseling Hematologic Medial History Hematologic Hx - polyethylene combiner: Hematologic Medical Hx - front office associate Hx of Blood Transfusion No 04/13/24 14:47 Hx of Transfusion in last 3 No 04/13/24 14:47 Months Date of Last Transfusion (if within last 3 months) Ever experience any problems No 04/13/24 14:47 with transfusion(s)? Specify any problems Hx of Preganancy in last 3 No 04/13/24 14:47 Months Nurse Filling Out Transfusion VCHRISTIN 04/13/24 14:47 & Questions: Date: 04/13/24 04/13/24 14:47 Time: 14:48 04/13/24 14:47 Patient unable to answer at this time (ie. confused, unrespo /Reproduction History /Reproductive History - polyethylene combiner: /Reproductive Hx- polyethylene combiner Hx Now No 04/13/24 14:47 Gestational Age (in weeks): EDC: Hx Hx Para Hx Section SAB No 04/13/24 14:47 Active Medications Active Medications: Current Medications Generic Name Dose Route Start Last Admin Trade Name Freq PRN Reason Stop Dose Admin Clindamycin Phosphate 900 mg in 50 mls @ 75 mls/hr 04/16/24 14:05 Cleocin IV 04/16/24 14:44 PREOP ONE Lactated Ringer's 1,000 mls @ 15 mls/hr 04/16/24 11:45 IV .Q48H DEEPAK PFSH Medical History CINV (chemotherapy-induced nausea and vomiting) Encounter for education Post-menopausal Cancer History of steroid therapy Arthritis Migraine headache Former smoker History of pain when walking History of tobacco use Encounter for screening for malignant neoplasm of lung History of kidney stones History of Thoracic Fracture Back pain Anxiety Endometriosis Home Medications ?Medication ?Instructions ?Recorded ?Last Taken ?Type duloxetine 30 mg capsule,delayed 30 mg PO DAILY anx 07/19/16 03/13/24 History release multivitamin with folic acid 400 1 tab PO DAILY Check with primary 07/19/16 Unknown History mcg tablet doctor tizanidine 4 mg capsule (Zanaflex) 4 mg PO QHS PRN Check with primary 01/18/20 Unknown History doctor meloxicam 7.5 mg tablet 7.5 mg PO DAILY 10/28/20 03/12/24 History buprenorphine 10 mcg/hour weekly 1 patch topical Q7D 12/25/20 Unknown History transdermal patch dexamethasone 4 mg tablet 8 mg (2 x 4 mg) PO .COMPLEX #12 04/11/24 Unknown Rx tabs lidocaine-prilocaine 2.5 %-2.5 % 1 applic topical ONCE PRN port 04/11/24 Unknown Rx topical cream access 30 days #30 grams omeprazole 20 mg capsule,delayed 20 mg PO DAILY #30 caps 04/11/24 Unknown Rx release ondansetron 8 mg disintegrating 8 mg PO Q8H PRN nausea and 04/11/24 Unknown Rx tablet vomiting #30 tabs prochlorperazine maleate 10 mg 10 mg PO Q6H PRN nausea and 04/11/24 Unknown Rx tablet vomiting #30 tabs Allergy/AdvReac Type Severity Reaction Status Date / Time cephalexin (From Keflex) Allergy Rash Verified 04/13/24 14:41 Family History Mother Diabetes Arthritis Anemia Hypertension Grandfather Diabetes CVA (cerebral vascular accident) Grandmother Arthritis Surgical History History of lumpectomy of right breast Hx of thumb surgery H/O colectomy History of appendectomy H/O elbow surgery clavicle surgery History of back surgery H/O shoulder surgery History of left oophorectomy Social History Smoking Status: Former smoker alcohol intake: never substance use type: does not use caffeine: Yes what type of physical activity do you participate in: walking and other details: Horseback Riding seatbelt use: always do you feel safe at home: Yes additional social history: - [employer] and [facility] Review of Systems (Anesthesia) ROS Narrative System reviewed and no additional complaints, except as documented.
--- NOTE | 2024-04-16 12:04 | PCM.HP.BLA ---
History and Physical Date of Admission: 04/16/24 Date of Service: 04/13/24 MR#: [id number] Acct: [id number] Name: FEDE HERZOG Rep #: [id number] : 1970 Provider: Dr. Em Hazel MD Age/Sex: 54/F Location: [facility] Status: Signed Intake Vital Signs 03/26/2414:04/10/2409:04/13/2413:56 Height 5 ft 8 in 5 ft 8 in 5 ft 8 in Weight: 166 lb BMI 25.2 BP 149/91 H Blood Pressure Location Rt brachial Position Sitting Respiration 18 Pulse 72 Pulse Source Monitor Temp 97.3 F L Temp Source Temporal Pulse Oximetry (%) 99 Oxygen Delivery Method room air Intake Visit Reasons: BREAST BIOPSY DOS 03/13/ DICUSS PORT Chief Complaint: breastbipsy dos 03/13 discuss port Is patient in pain?: No Allergies cephalexin (From Keflex) Allergy (Verified 04/13/24 13:57) Rash Medications ?Medication ?Instructions ?Recorded ?Confirmed ?Type duloxetine 30 mg capsule,delayed 30 mg PO DAILY anx 07/19/16 04/13/24 History release multivitamin with folic acid 400 1 tab PO DAILY Check with primary 07/19/16 04/13/24 History mcg tablet doctor tizanidine 4 mg capsule (Zanaflex) 4 mg PO QHS Check with primary 01/18/20 04/13/24 History doctor meloxicam 7.5 mg tablet 7.5 mg PO DAILY 10/28/20 04/13/24 History buprenorphine 10 mcg/hour weekly 1 patch topical Q7D 12/25/20 04/13/24 History transdermal patch dexamethasone 4 mg tablet 8 mg (2 x 4 mg) PO .COMPLEX #12 04/11/24 04/13/24 Rx tabs lidocaine-prilocaine 2.5 %-2.5 % 1 applic topical ONCE PRN port 04/11/24 04/13/24 Rx topical cream access 30 days #30 grams omeprazole 20 mg capsule,delayed 20 mg PO DAILY #30 caps 04/11/24 04/13/24 Rx release ondansetron 8 mg disintegrating 8 mg PO Q8H PRN nausea and 04/11/24 04/13/24 Rx tablet vomiting #30 tabs prochlorperazine maleate 10 mg 10 mg PO Q6H PRN nausea and 04/11/24 04/13/24 Rx tablet vomiting #30 tabs Have you fallen in the past year?: No PFSH Medical History CINV (chemotherapy-induced nausea and vomiting) Encounter for education Post-menopausal Cancer History of steroid therapy Arthritis Migraine headache Former smoker History of pain when walking History of tobacco use Encounter for screening for malignant neoplasm of lung History of kidney stones History of Thoracic Fracture Back pain Anxiety Endometriosis Surgical History Hx of thumb surgery H/O colectomy History of appendectomy H/O elbow surgery clavicle surgery History of back surgery H/O shoulder surgery History of left oophorectomy Family History Mother Diabetes Arthritis Anemia HypertensionGrandfather Diabetes CVA (cerebral vascular accident)Grandmother Arthritis Social History Smoking Status: Former smoker alcohol intake: never substance use type: does not use caffeine: Yes what type of physical activity do you participate in: walking and other details: Horseback Riding seatbelt use: always do you feel safe at home: Yes additional social history: - [employer] and [facility] Female Reproductive History Menstrual Date of menopause: 06/12/17 Ab spontaneous: 1 HPI HPI HPI: 54-year-old female presents to discuss port placement due to high Oncotype recurrence score of 32 after lumpectomy of the right breast for invasive lobular carcinoma. ROS General General: No weight change, appetite, fatigue, colon cancer, breast cancer or weakness HEENT HEENT: No difficulty swallowing, eye injury, eye surgery, swollen glands or hoarseness Endo Endocrine: No thyroid disease, diabetes mellitus, thyroid cancer, Hair loss, heat intolerance or cold intolerance Skin Skin: No rash or changing moles Breast Breast: No left breast lump, right breast lump, nipple discharge, breast pain, abnormal mammogram, abnormal US or breast enlargement Musc Musculoskeletal: Yes back problems and arthritis; No rheumatoid arthritis, gout or joint pain Cardio Cardiovascular: No murmur, pacemaker, heart disease, atrial fibrillation, high blood pressure, heart attack, heart stent, palpitations, shortness of breat with exertion or chest pain Psych Psychiatric: No depression, anxiety or hearing voices Resp Respiratory: No shortness of breath, No sleep apnea, No cough, No COPD, No asthma, No emphysema and No wheezing Gastro Gastrointestinal: No abdominal pain, No nausea or vomiting, No diarrhea, No constipation, No blood in stool, No acid reflux, No hemorrhoids, No ulcers, No gallbladder problem and No black,tarry stools Delon Hematologic: No blood thinners, No blood disorders, No bleeding, No anemia and No blood clots Neuro Neurologic: No system reviewed and no additional complaints, except as documented, No as per HPI, No abnormal gait, No abnormal hearing, No abnormal movements, No abnormal speech, No behavioral changes, No burning sensations, No confusion, No convulsions, No disequilibrium, No dizziness, No localized weakness, No frequent falls, No headache(s), No lack of coordination, No loss of vision, No memory loss, Yes numbness, No other visual disturbances, No radicular pain, No restless legs, No sensory deficit, No syncope, Yes tingling, No tremor(s), No weakness and No other Exam Const General: cooperative, healthy appearing, comfortable and no acute distress [facility] Head: normocephalic and atraumatic Neck Neck: supple Chest Other: Palpation of bilateral upper chest normal, previous clavicle incision well-healed right Resp Effort & Inspection: normal respiratory effort Cardio Rate: regular rate GI Inspection: non-distended Skin General: no rashes or lesions noted Neuro General: CN's II-XI intact bilaterally Extrem General: normal to inspection Psych Mental Status: mental status grossly normal Attitude: cooperative Assessment and Plan Assessment and Plan (1) Encounter for insertion of venous access port: Status: Acute (2) S/P lumpectomy, right breast: Status: Acute Comment: SN LN- 09/12 neg 03/2024 (3) Breast cancer: Status: Chronic Qualifiers: Breast location: upper outer quadrant of breast Estrogen receptor status: positive Patient sex: female Laterality: right Qualified Code(s): C50.411 - Malignant neoplasm of upper-outer quadrant of right female breast; Z17.0 - Estrogen receptor positive status [ER+] Comment: Right breast Lobular carcinoma-clinically stage I (cT1 N0 M0), tumor size 8mm, grade 2, ER >95%, CA >95%, Her2 FISH negative. S/P lumpectomy on 03/13/2024, Pathology showed Invasive Lobular carcinoma, tumor size 7mm, margins negative, grade 2. Guys axillary node 1 negative. She does not want to do Oncotype DX since it will change what she will do. Bone density 02/21/2024 was normal. Discussed R breast cancer stage I, ER positive, Her2 negative disease, adjuvant Radiation therapy, adjuvant hormonal therapy. Pt wants to proceed. Plan I have discussed above with the patient- Port-a-Cath placement. Left IJ possible right Patient has been counseled as to the risks/benefits of the procedure. I have explained the risks of the surgery, including but not limited to: infection, bleeding, injury to any blood vessels/nerves, injury to lungs (such as pneumothorax or hemothorax and need for chest tube), not having any access, nonfunctioning of port due to thrombosis, infection of port, etc. the patient understands and agrees to proceed. I have answered all the patient's questions to the patient?s satisfaction and the patient has no further questions. Em Hazel M.D. Pager: [phone] [facility] [address] [place] [address], [address] [place] [address] Office: [phone] Coding Level of Care Code Off vis,est,level 3 Diagnoses Encounter for insertion of venous access port Z45.2 S/P lumpectomy, right breast Z98.890 Malignant neoplasm of upper-outer quadrant of right breast in female, estrogen receptor positive C50.411; Z17.0 Breast location: upper outer quadrant of breast Estrogen receptor status: positive Patient sex: female Laterality: right Clinical Quality Measures Falls Risk Screening/Assistive Devices Have you fallen in the past year?: No 04/13/24 1436 <Electronically signed by Em Hazel MD> Date Em Hazel MD
[2024-04-16] MEDS: Lactated Ringers 1,000 ML 15 ML IV (12:06)
[2024-04-16] MEDS: Clindamycin 900 MG/50 ML BAG 75 MG IV (12:34)
[2024-04-16] MEDS: Lidocaine 1%/Epi 1:200 (30ml) 30 ML AMPUL (12:57)
[2024-04-16] MEDS: Bupivacaine Mpf 0.5% 30 ML VIAL (12:57)
--- NOTE | 2024-04-16 13:04 | RAD_ITS ---
STUDY: X-RAY CHEST REASON FOR EXAM: Female, 54 years old. Port -- PORTABLE PACU TECHNIQUE: Single AP portable view of the chest. COMPARISON: Comparison is made with prior study dated July 16, 2022. FINDINGS: A left-sided portacatheter is in place. The tip is at the junction of the superior vena cava and right atrium. EKG electrodes are seen. Hyperinflation. The lungs are clear. There is no demonstrated pleural abnormality. Normal size heart. Normal mediastinum and carmen. Normal visualized pulmonary arteries. Normal visualized aortic arch and descending thoracic aorta. Normal visualized thoracic spine. Normal visualized ribs, clavicles, and shoulders. There is no demonstrated abnormality of the visualized soft tissue structures of the upper abdomen. RAD/CXR for Line Placement IMPRESSION: The tip of the left Port-A-Cath is at the junction of the superior vena cava and right atrium. Hyperinflation. The lungs are clear. Electronically Signed: Vidal Álvarez MD at 14:13 EDT ,
--- NOTE | 2024-04-16 13:04 | PCM.OPRPT ---
Report of Operation Date of Procedure: 04/16/24 Pre-Operative Diagnosis: Z45.2, right breast cancer Post-Operative Diagnosis: Same Surgery/Procedure Performed:: Placement of left IJ Port-A-Cath Use of fluoroscopy Use of ultrasound Surgeon: Em Hazel Type of Anesthesia: Local MAC Anesthesiologist: Zac Balderas Special Medications: Clindamycin 900 mg IV x 1 Specimen's removed: None Estimated Blood Loss (mL): < 10 cc Description of Procedure: After informed consent was given, the patient was brought to the operating room and placed in the supine position. Appropriate time out protocol was followed. Patient was then given IV conscious sedation for anesthesia. The patient's left upper chest and neck were then prepped with a surgical skin preparation and sterile surgical drapes were placed. After proper landmarks were ascertained, the skin at the upper left chest area was then infiltrated with 1:1 mixture of 1% lidocaine with epinephrine and 0.5% marcaine. A needle trocar was then inserted into the left internal jugular vein with ultrasound guidance-multiple vessels were viewed with u/s and the left IJ was chosen-- and there was good aspiration of venous blood. A wire was then threaded into the needle trocar and this was visualized under fluoroscopy to ensure that the wire was in the superior vena cava. Once this was done, then the needle trocar was removed. A small skin francis was made with an 11 blade knife at the wire entrance site. The dilator with the introducer sheath attached was then placed over the wire into the left internal jugular vein via the Seldinger technique and this was visualized under fluoroscopy. The dilator and sheath were in proper position as visualized by fluoroscopy. A subcutaneous pocket was then created caudad to the catheter insertion site. A transverse skin incision was made after the skin and subcutaneous tissues were infiltrated with local anesthetic. Blunt dissection was then used to create a space large enough for placement of the subcutaneous port. The catheter was then tunneled into the subcutaneous pocket. The wire and dilator were then removed. The catheter was then threaded into the introducer sheath and was positioned with its tip at the junction of the superior vena cava and the right atrium as visualized under fluoroscopy. The excess catheter was transected. The catheter was then attached to the subcutaneous port using manufacturers guidelines. The catheter was flushed with a heparin saline mixture prior to placement. Hemostasis was carefully controlled with electrocautery. The port was sutured to the subcutaneous fascia using 2-0 Vicryl suture at two sites. The port was then placed in the subcutaneous pocket. The incision were reapproximated with interrupted subdermal 3-0 vicryl sutures. The skin was reapproximated with 3-0 nylon suture in a interrupted fashion. Steristrips were used for reinforcement of the skin closure at IJ insertion site and a sterile opsite dressings were applied. The patient tolerated the procedure well. Grafts/Implants Used: Bard PowerPort isp M.R.I. 6Fr Lot [id number] Complications none
--- NOTE | 2024-04-16 13:06 | EX.PCM.DISCH ---
Discharge Instructions Procedure Port-A-Cath Diet Discharge Diet: Light diet - advance as tolerated Activity May shower in (days): 5 (Keep port site clean and dry x5 days. Neck incision okay to get wet after 1 day. Okay to lower shower and upper sponge bath. OR okay to taper off port site with a Ziploc bag to shower) Lifting Restrictions: No lifting > 15 pounds for 3 days with the arm on the side of the port Dressing / Incision Call your doctor if your incision/area has: Continuous Slow Oozing, Sudden Increased Bleeding, Increased Pain/ Swelling, Increased Redness, Foul Smelling Discharge and Swelling at the incision site Call your doctor if you observe: Fever of 101 or Higher Change Dressing in: 2 days (2-3 days- port site; ok to remove neck opsite in 1 day) Follow Up Care Please Follow Up With: Em Hazel MD When: In 10 days for permanent suture removal?call office for appointment Test Results: Test results from this visit will be discussed in further detail at your follow-up appointment, if applicable. Discharge Plan Admission Attending Provider: Em Hazel Primary Care Provider: Carrillo Driscoll Chi Instructions Print Language: Turkish Discharge Orders/Prescriptions Prescriptions: Continued tizanidine [Zanaflex] 4 mg capsule 4 mg PO QHS PRN (Reason: Check with primary doctor) meloxicam 7.5 mg tablet 7.5 mg PO DAILY buprenorphine 10 mcg/hour patch weekly 1 patch TOPICAL Q7D Patient Comments: APPLY 1 PATCH EVERY 7 DAYS FOR 28 DAYS duloxetine 30 MG capsule 30 mg PO DAILY Patient Comments: ANXIETY, PAIN multivitamin with folic acid 1 TABLET tablet 1 tab PO DAILY Patient Comments: SUPPLEMENT prochlorperazine maleate 10 mg tablet 10 mg PO Q6H PRN (Reason: nausea and vomiting) Qty: 30 2RF ondansetron 8 mg tablet,disintegrating 8 mg PO Q8H PRN (Reason: nausea and vomiting) Qty: 30 1RF lidocaine-prilocaine 2.5-2.5 % cream 1 applic topical ONCE PRN (Reason: port access) 30 Days Qty: 30 2RF dexamethasone 4 mg tablet 8 mg PO .COMPLEX Qty: 12 3RF Rx Instructions: 8 mg orally twice daily ONLY the day before, the day of, and the day after chemotherapy omeprazole 20 mg capsule,delayed release(DR/EC) 20 mg PO DAILY Qty: 30 1RF Referrals / Follow Up: Carrillo Driscoll Chi, MD [Primary Care Provider] - Disposition Disposition (needs filled in before D/C Order can be placed): Home, Self Care
--- NOTE | 2024-04-16 13:22 | PCM.POST.ANE ---
Anesthesia: Postop Eval I Current Vital Signs Temperature: 97.7 F Pulse Rate: 87 Blood Pressure: 117/79 Respiratory Rate: 16 Pulse Ox: 99 Oxygen Delivery Method: Room Air Assessment Airway patent: Yes Spontaneous unlabored respirations: Yes Mental status: Awake and Calm nausea: No Vomiting: No Anesthesia Complication: No Fluid Hydration Crystalloid volume administer (ml): 800 Total IV fluid infused: 800 Progress Note Anesthesia document: Postop Eval 1 completed: Yes
--- NOTE | 2024-04-16 14:10 | PCM.POSTANE2 ---
Anesthesia Postop Eval I Sum Postop Eval Completion status Anesthesia document: Postop Eval 1 completed: Yes Anesthesia Postop Eval I Summary Anesthesia Postop Eval I Summary: Anesthesia Postop Eval I: Assessment Summary Airway patent Yes 04/16/24 13:23 [email or web address] Spontaneous unlabored Yes 04/16/24 13:23 [email or web address] respirations Mental status Awake,Calm 04/16/24 13:23 [email or web address] nausea No 04/16/24 13:23 [email or web address] Vomiting No 04/16/24 13:23 [email or web address] Anesthesia Postop Eval I: Fluid Summary Crystalloid volume administer 800 04/16/24 13:23 [email or web address] (ml) Colloids volume administered ( ml) Blood Product volume administered (ml) Total IV fluid infused 800 04/16/24 13:23 [email or web address] Anesthesia Postop Eval I: Summary Notes Anesthesia Complication No 04/16/24 13:23 [email or web address] Anesthesia Complication Comment: Post-operative progress note Anesthesia: Postop Eval II Evaluation Mental status: Awake and Calm Pain Level: 1 nausea: No Vomiting: No Complications Anesthesia Complication: No
== END 2024-04-16 14:27 | disposition home or self-care (01) ==
LOC: SDC 11:31 → AC 11:32
PROVIDERS: PCP Family Medicine Geriatric Medicine; Referring Provider Surgery; Visit Provider Surgery
PROC: (CPT 36561; principal; 2024-04-16 13:50)
DX: Z45.2 Encounter for adjustment and management of vascular access device (principal); C50.411 Malignant neoplasm of upper-outer quadrant of right female breast; F41.9 Anxiety disorder, unspecified; Z79.899 Other long term (current) drug therapy; Z87.891 Personal history of nicotine dependence; Z17.0 Estrogen receptor positive status [ER+]
CPT/HCPCS: 36561; 00532; 71045; 77001; J7120; C1769; J2405

== ENCOUNTER 2024-08-01 12:30 | Outpatient (RCR) | payer OTHER, SELFPAY ==
--- NOTE | 2024-08-01 14:47 | HP.OTFCE_ITS ---
Task Lift Floor (Occasional 1-33% of Day): 20 Floor (Frequent 34-66% of Day): 10 Floor (Constant 67-100% of Day): 4.21 Floor PDL: Light Knee (Occasional 1-33% of Day): 20 Knee (Frequent 34-66% of Day): 10 Knee (Constant 67-100% of Day): 4.21 Knee PDL: Light Waist (Occasional 1-33% of Day): 17.5 Waist (Frequent 34-66% of Day): 8.75 Waist (Constant 67-100% of Day): 3.88 Waist PDL: Sedentary-Light Shoulder (Occasional 1-33% of Day): 17.5 Shoulder (Frequent 34-66% of Day): 8.75 Shoulder (Constant 67-100% of Day): 3.88 Shoulder PDL: Sedentary-Light Overhead (Occasional 1-33% of Day): 15 Overhead (Frequent 34-66% of Day): 7.5 Overhead (Constant 67-100% of Day): 3.15 Overhead PDL: Sedentary-Light Comments: pt at light task lift for floor and knee level, sedentary-light waist, shoulder and overhead Work Activity/Posture Bending: No Ablility (0% of day) Squatting: No Ablility (0% of day) Kneeling: Occasional Ability (1-33% of day) Reaching out: Frequent Ability (34-66% of day) Reaching up: Frequent Ability (34-66% of day) Sitting: Frequent Ability (34-66% of day) Walking: Occasional Ability (1-33% of day) Standing: Occasional Ability (1-33% of day) Reference Reference: Duration Sedentary Sedentary Light Light Light Medium Medium Medium Heavy Very Heavy Heavy Occasional (0-33% of day) Frequent (34-66% of day) Constant (67-100% of day) 10 # Negligible Negligible 15 # 8 # Negligible 20 # 10# Negli. 35 # 18 # 7 # 50 # 25 # 10 # 75 # 100 # >100 # 38 # 50 # >50 # 15 # 20 # >20 # Patient Information Height: 5 ft 8 in Weight:: 73.936 kg Hand Dominance: R Medical History Medical History Including Restrictions: This 54 year old female arrives with dx of back pain per pt she has bulging disc in cervical region, thoracic spinal atrophy, fx vertebrae and bulging discs throughout. pt has had x2 lumbar surgeries microdisectomy which got infected causing disc to grow around spinal cord -- surgeon then went into to clean then did rosemarie and screws to stabilize. Per pt B shoulders operated on as well as R clavicle operation. pt with dx of breast ca in January of 2024 has finished chemo now currently in radiation has 7 rounds left. pt did do therapy before and after back surgeries. Pt just recently found out she has arthritis in lower back where surgeries were complete. pt has had injections, chiropractor as well as reiki massage. pt wore brace on back wears lumbar support during impact tasks. 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 pt has 4 steps to enter with hand rail. pt bathroom with walk in shower no bars no seat. pt commode high rise commode. pt is able to perform own self care. pt unable to perform IADL tasks as far as cooking uses microwave often and or oven to make frozen items. sister will come over for majority of IADL tasks. able to perform own laundry tasks. pt cares for dog (queen retriever and horse-- horse is able to run in and out of barn on own as needed pt only has to throw in food x1 a day for horse. Physical Examination Physical Examination: baseline seated HR 80 bpm 02 96% able to walk from front waiting area to OT section slow pace no AD ROM: BUE AROM WFL BLE AROM WFL -- guarded position during LE movement due to back pain Strength: Upper Extremity: L UE shoulder flexion 5.0# R UE shoulder flexion 4.2# L bicep 4.9# R bicep 6.2#-- started to have pain in upper part of arm from resistance L tricep 8.8# R tricep 11.6# L ER 6.9# R ER 8.0# Lower extremity: L hip flexion 9.7# R hip flexion 12.3# L quad 11.4# R quad 12.5# L hamstring 14.6# R hamstring 15.9# Right Installation Supervisor Strength Average: 40.00 Right Installation Supervisor Strength Percentile: 3rd percentile Left Installation Supervisor Strength Average: 43.33 Left Installation Supervisor Strength Percentile: 11th percentile Right Lateral Pinch Average: 5.00 Right Lateral Pinch Percentile: <10th percentile Left Lateral Pinch Average: 5.00 Left Lateral Pinch Percentile: <10th percentile Right Tripod Pinch Average: 3.00 Right Tripod Pinch Percentile: <10th percentile Left Tripod Pinch Average: 3.66 Left Tripod Pinch Percentile: <10th percentile Sensation: denies any abnormalities with sensation no numbness or tingling reported Fine Motor: denies difficulty with fine motor including small packages and fastners Balance: standing forward reach score 10 indicating mild risk for falls Non Material Handling Activities Bending: pt is unable to bend low enough to get item from floor level 0/3 trial 0/10 at own pace 0/10 fast Squatting: pt unable to squat unable to get low enough despite BUE support of table 0/3 trial 0/10 at own pace 0/10 fast HR 93 bpm and 02 98% pain at 7/10 mostly R side abdomen to leg Kneeling: kneeling 3/3 trial support of desk unilateral at own pace 3/10 assist to get back up on the fourth one with support of desk unilateral fast 0/10 HR 107 bpm and 02 97% pain rating 8/10 shakiness during task slow pacing Reaching out/up: reaching out: 3/3 trials at own pace 10/10 fast 10/10 HR 100 bpm 02 98% reaching up: 3/3 trials at own pace 10/10 fast 10/10 HR 104 bpm and 02 98% pain rating 8/10 stand with feet hip width apart slight retro lean when reaching out as well as up seated RB inebtween reaching out and reaching up Walking: able to walk length of home able to walk from home to barn able to walk from OT section x1 lap around facility before unable to go any further does require x3 seated RB during walk and holds onto wall railing toward end to complete does not use AD for completion total of 422 feet walk with wide stance with protective guarding positioning due to back HR 120 bpm and 02 93% pain rating 7/10 Standing: per pt able to stand for approx 15 min befor needing to have a seat -- pain stops pt able to stand for approx 7 min sustained during FCE before taking a seated RB. Sitting: able to sit for intake of assessment approx 30 min does not adjust posture much during intake sits with feet on floor pt states she is able to typically sit for approx an hour before needing to stand and move Climbing Stairs: able to ascent and descend 10 steps using railing B hands reciprocal step pattern during task needing seated RB after completion Dynamic Occasional Lifting Capacity Floor Lift: able to do box (15#)+ 5# R knee zach slightly = 20# total HR 108 bpm and 02 98% pain rating 8/10 especially legs and thoracic back hold load close to body wide stance arms feel tired Knee Lift: able to do box (15#)+ 5# total of 20# legs wobble during task keeps load cvlose with wide stance HR 110 bpm and 02 99% pain at 8/10 sits after for RB Waist Lift: box (15#) + 2.5#= total of 17.5# HR 101 bpm 02 97% pain rating 7/10 does not need to sit after w2ards Shoulder Lift: box (15#) + 2.5#=total of 17.5# HR 107 bpm 02 90% pain 7/10 needs sitting RB after slow pace just clears box lifting upward burning feeling in upper back Overhead Lift: box (15#) no additional weight total of 15# HR 95 bpm and 02 94% pain 8/10 sitting RB afterwards able to lift ontop slides to get to full position decreased control in decent to table Carrying: able to carry box care home to filing cabinet needs therapist to take box care home through to complete (pt carries 25 feet total) HR 92 bpm and 02 95% pain 8/10 R LE slight give out during mobility and begins to bends knees toward end
== END 2024-08-01 19:00 | disposition home or self-care (01) ==
LOC: OT 12:30
PROVIDERS: PCP Family Medicine Geriatric Medicine; Referring Provider Anesthesiology Pain Medicine; Visit Provider Anesthesiology Pain Medicine
DX: M54.9 Dorsalgia, unspecified (principal)
CPT/HCPCS: 97750

== ENCOUNTER → 2024-09-10 | Outpatient (CLI) | payer OTHER, SELFPAY ==
[2024-09-13 14:07] LABS: HPV APTIMA, High Risk Negative (Negative)
== END | disposition home or self-care (01) ==
LOC: LABSPEC 11:45
PROVIDERS: PCP Family Medicine Geriatric Medicine; Referring Provider Nurse Practitioner Family; Visit Provider Nurse Practitioner Family
DX: Z12.4 Encounter for screening for malignant neoplasm of cervix (principal)
CPT/HCPCS: 87624; 88175; G0145

== ENCOUNTER → 2024-11-23 | Outpatient (CLI) | payer MEDICAID, SELFPAY ==
--- NOTE | 2024-11-23 08:53 | US_ITS ---
PROCEDURE: BREAST LIMITED UNILATERAL REASON FOR EXAM: UPPER OUTER AND UPPER INNER QUADS; PAIN COMPARISON: Comparison is made with prior mammogram done earlier in the day. TECHNIQUE: Targeted ultrasound of the right breast. FINDINGS: RIGHT: Ultrasound targeted to the upper-outer quadrant of the right breast. The palpable abnormality corresponds with the site of prior lumpectomy. There is evidence of a 5 mm x 9 mm irregular hypoechoic density at the 10 o'clock position of the breast at 7 cm from the nipple. This corresponds to the lumpectomy site that most likely represents postoperative scarring. A repeat sonogram in 4 months is recommended. US/Breast Limited Unilateral IMPRESSION: The palpable lump corresponds to the prior lumpectomy site. Sonographic findin gs most likely are due to the postoperative scarring. Four-month follow-up recommended. BI-RADS 3: PROBABLY BENIGN. Reading Location: [place] [id number]
--- NOTE | 2024-11-23 09:04 | BI_ITS ---
PROCEDURE: DIAG MAMM W/CAD, UNILAT REASON FOR EXAM: RIGHT BREAST MASS; H/O BREAST CANCER Palpable lump at the lumpectomy site. History of aunt with breast cancer. TECHNIQUE: Bilateral diagnostic digital breast tomosynthesis with 2D and 3D images. Computer aided detection. COMPARISON: Prior exam(s) dating back to January 03, 2024.. FINDINGS: The breasts are heterogeneously dense which may obscure small masses. The patient is status post lumpectomy in the upper lateral aspect of the right breast with postoperative scarring. Surgical clips are seen at the operative site. No mass lesion is seen. Sonographic correlation recommended. BI/DIAG MAMM W/CAD, UNILAT IMPRESSION: Status post lumpectomy in the upper lateral aspect of the right breast as descr ibed with postoperative surgical changes. Correlation with ultrasound recommended. Follow-up code: Ultrasound Recommended BI-RADS category 0. Reading Location: [place] [id number]
== END | disposition home or self-care (01) ==
LOC: OPBI 08:52
PROVIDERS: PCP Family Medicine Geriatric Medicine; Referring Provider Nurse Practitioner Family; Visit Provider Nurse Practitioner Family
DX: N64.4 Mastodynia (principal); Z85.3 Personal history of malignant neoplasm of breast
CPT/HCPCS: 77061; 76642; 77065; G0279

== ENCOUNTER 2024-12-04 14:29 | Outpatient (CLI) | payer MEDICAID, SELFPAY ==
--- NOTE | 2024-12-04 14:50 | CT_ITS ---
EXAM: CT chest without contrast CLINICAL HISTORY: Lung cancer screening. COMPARISON: Low-dose CT chest dated November 15, 2023. TECHNIQUE: Low-dose CT of the chest was performed without intravenous contrast. Multiplanar reformats were obtained afterwards. FINDINGS: The trachea and central bronchial tree are patent. There is no pleural or pericardial effusion. The heart is normal in size. There are shotty lymph nodes seen within the mediastinum. This was seen on previous. Evaluation for hilar lymphadenopathy is limited. Tiny axillary lymph nodes is present including the partially calcified partially calcified right breast nodule is present, which was not definitively identified on prior examination. This is best seen on image 123/257. Evaluation of the upper abdominal viscera is limited. Stable tiny sub subcentimeter nodules seen within the right upper lobe anteriorly (image 92/257 area of subsegmental atelectasis/pleura scarring remains within the right middle lobe anteriorly (image 188/257). This does not appear to have significantly changed since prior examination. Patchy ground-glass changes seen of the right lung base, likely to represent subsegmental atelectasis.. Stable granulomas seen within the left lower lobe (image 183/7). No acute osseous abnormalities identified. CT/Low Dose CT Lung Screening IMPRESSION: Partially calcified right breast nodule which was not definitively identified o n prior examination. Recommend correlation with recent ultrasound search mammography. With regards to the lungs, there has been no significant interval change since prior examination. Continue low-dose screening. Reading Location: [id number]
== END 2024-12-04 23:59 | disposition home or self-care (01) ==
PROVIDERS: PCP Family Medicine Geriatric Medicine; Referring Provider Nurse Practitioner Family; Visit Provider Nurse Practitioner Family
DX: Z12.2 Encounter for screening for malignant neoplasm of respiratory organs (principal); R29.898 Other symptoms and signs involving the musculoskeletal system; Z87.891 Personal history of nicotine dependence
CPT/HCPCS: 71271; 97110

== ENCOUNTER → 2024-12-06 | Outpatient (CLI) | payer MEDICAID, SELFPAY ==
--- NOTE | 2024-12-06 12:00 | US_ITS ---
PROCEDURE: BREAST LIMITED UNILATERAL 12/06/2024 REASON FOR EXAM: RIGHT BREAST BIOPSY TECHNIQUE: Targeted right breast ultrasound. COMPARISON: Mammogram and ultrasound 11/23/2024, MRI 02/09/2024, mammogram and ultrasound 01/20/2024, mammogram 01/03/2024. FINDINGS: The patient presented for ultrasound-guided biopsy of the right breast. However, at the time of the procedure no suspicious sonographic findings were visualized in the upper-outer right breast. There are images obtained of the 10 o'clock 5 cm from the nipple demonstrating postsurgical changes with associated surgical clips. Also, images obtained of the 9 o'clock 5 cm from the nipple demonstrates normal fibroglandular tissues. US/Breast Limited Unilateral IMPRESSION: Postsurgical changes seen in the upper-outer right breast are benign. Otherwis e, there are no suspicious sonographic findings. The patient should return to annual screening mammogram in February 2025. BI-RADS 2: BENIGN. RECOMMEND ANNUAL MAMMOGRAPHIC SCREENING. Follow-up code: 3 Month Follow-up Reading Location: [id number]
== END | disposition home or self-care (01) ==
LOC: OPUS 11:59
PROVIDERS: PCP Family Medicine Geriatric Medicine; Referring Provider Surgery; Visit Provider Surgery
DX: R92.321 Mammographic fibroglandular density, right breast (principal)
CPT/HCPCS: 76642

== ENCOUNTER 2024-12-25 10:00 | Outpatient (RCR) | payer MEDICAID, SELFPAY ==
--- NOTE | 2024-11-27 10:24 | HP.PTEVAL_ITS ---
Patient's Visit Information Visit Information Visit Information: FEDE HERZOG is a 54 year old F referred to Physical Therapy by NOLAN Lizama with a diagnosis of OTHER SYMPTOMS AND SIGNS INVOLVING THE MUSCULOSKELETAL SYSTEM. Date of Evaluation: 11/27/24 Physical Therapist: Flavio Negrete, PT, Cert MDT, OCS Visit Plan Frequency: 2x /Week Duration: 4 Weeks Plan: * PATIENT HAS H/O BREAST CA WITH 4 RDS CHEMO LAST TX ~ 4MONTHS AGO * PATIENT H.O LUMBAR FUSION PT INTERVENTIONS BLE STRENGTHENING ,DLS ,LE FLEBABILITY , CORE STRENGTHENING ,FUNCTIONAL STRENGTHENING AND BALANCE PROGRAM Subjective Subjective: This 54 y/o female presents to physical therapy bilateral leg weakness . Patient has breast CA since last March with lumpectomy and 4 rounds chemotherapy. Patient last round of chemo ~ 4 months. Patient developed weakness in legs and h/o lumbar pain with lumbar surgery ,patient lumbar discectomy and lumbar fusion ~ 20 years ago . Patient noticed tightness in legs ascending/stairs. Patient has same feeling tightness with walking ~ 15 mins. Patient did FCE for disability . Patient seen DR hutchinson PT .Patient is on pain patch and hydrocodone. Patient has no recent imaging. Patient has no recent falls. Last MRI showed Partial lumbarization of L5.Anterior subluxation of L4 on L5 with facet arthropathy, ligamentum thickening, and disc bulge contributing to moderate spinal canal stenosis.Some neural foraminal stenosis is also present at the L3-L4 and L4-L5 levels.Spinal fusion intact. Thoracic MRI 2021 There is mild disc space narrowing with small left paracentral disc protrusions atT8-T9 and T9-T10, with the protrusion at the T9-T10 level resulting and mild mass effect/compression on the left anterior aspect of the cord seeimage #20/45 series #8. A small/shallow left foraminal disc protrusion is also present at the T7-T8 level resulting and focal foraminal stenosis and compression of exiting nerve root. Normal central canal and intervertebral neural foramina at the remaining corresponding levels. Patient has paresthesia/tingling in legs. Patient has pain right leg . Aggravating factors walking/standing causes symptoms in legs. Alleviating factors rest. Patient sleeps in a recliner unable lay supne .Bowel/bladder-. Coughing/sneezing+ . Patient pain affects sleeping. Patient condition affects QOL and function/ADLS . Patient goals to decrease pain . 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 Pain Bilateral Back: Pain Intensity (Out of 10): 6 Pain Intensity Range: 10 Objective Objective: POSTURE: mild forward posture GAIT: reciprocal pattern slightly unsteady PALPATION: unremarkable FLEXABILITY: hamstrings mod tight MMT: ( peak force) quads right 10.9 ,left 11.1 ,hip flexion 19.9 ,left 17.6 ,hamstrings right 10.9 ,left 11.1 LUMBAR ROM: flexion mod loss ,extension severe loss pain ,side glides mod loss Special Tests L/S Slump test left side: Negative L/S Slump test right side: Negative L/S Left Straight Leg Raise: Negative L/S Right Straight Leg Raise: Negative Lumbar Standing: Flexion - Mechanical Response: No effect Lumbar Standing: Flexion - Symptoms During Testing: Increases Lumbar Standing: Flexion - Symptoms After Testing: No worse Comments:: back Lumbar Standing: Extension - Mechanical Response: No effect Lumbar Standing: Extension - Symptoms During Testing: Increases Lumbar Standing: Extension - Symptoms After Testing: No worse Comments:: back Lumbar Standing: Right Side Glides - Mechanical Response: No effect Lumbar Standing: Right Side [place] - Symptoms During Testing: No effect Lumbar Standing: Right Side [place] - Symptoms After Testing: No effect Lumbar Standing: Left Side [place] - Mechanical Response: No effect Lumbar Standing: Left Side [place] - Symptoms During Testing: No effect Lumbar Standing: Left Side [place] - Symptoms After Testing: No effect Balance/Special Test Scores CATSIB Score (Max score 120 seconds): 62 Lower Extremity Functional Score: 22 Goals Goal 1:: Patient to be I with HEP for back Goal Time Frame: 4-6 Weeks Goal 2:: Patient to improve strength peak force quads/hams/hip by 5-10 # to improve function Goal Time Frame: 4-6 Weeks Goal 3:: Patient to improve lumbar ROM for function of recovery for ADLS Goal Time Frame: 4-6 Weeks Goal 4:: Patient to improve back oswestry score by 5 points to improve QOL Goal Time Frame: 4-6 Weeks Goal 5:: Patient to improve CATSIB by 5-10 points to improve balance Goal Time Frame: 4-6 Weeks Goal 6:: Patient to improve ability to walking and stand > 15 mins for ADLS Goal Time Frame: 4-6 Weeks Rehabilitation Potential Physical Therapy Diagnosis: This patient has bilateral leg weakness from h/o lumbar fusion along with breast CA with 4 rounds of chemotherapy with weakness BLE ,decrease lumbar ROM and back pain and decrease balance thus benefit from skilled PT Rehabilitation Potential: Fair Anticipated Interventions Patient/Client Instruction: Educate patient on: Condition and Plan of Care For the Purpose of:: To decrease pain, To improve muscle performance and motor function, To improve ability to perform ADL's, To increase tolerance to activity/condition/position, To improve performance and independence with ADL's, To improve ability of physical actions for home/community/work/leisure, To improve health of tissue, To decrease soft tissue restriction, To increase flexibility/ROM, To reduce risk of recurrence and To improve tolerance to ADL's Therapeutic Exercise to Include: Strength training, Endurance training, Balance training, Postural training, Flexibilty training and Dynamic Lumbar Stabilization Comment: BLE For the Purpose of:: To decrease pain, To increase ROM, To improve muscle performance and motor function, To increase tolerance to activit y/condition/position, To improve ability of physical actions for home/community/work/leisure, To improve health of tissue, To decrease soft tissue restriction, To increase flexibility/ROM, To improve endurance, To improve balance and To improve tolerance to ADL's Text: Thank you for the opportunity to evaluate your patient. For Medicare and Medicare HMO plans, please review the plan of care and approve it. It will need to be FAXED BACK to us at [phone] for Medicare purposes. For Medicare only, by signing this I certify the plan of care. Please let me know if there are questions or concerns regarding this plan of care. Physician Signature: Date:
--- NOTE | 2024-12-25 10:52 | HP.PTDCSUM ---
Discharge Summary D/C summary: It has been my pleasure to treat FEDE HERZOG referred by Renetta Oden NP-C, with the diagnosis of OTHER SYMPTOMS AND SIGNS INVOLVING THE MUSCULOSKELETAL SYSTEM for a total of 8 visit(s). Discharge Date: 12/25/24 Please see the following information for a summary of their discharge status. Subjective Subjective: Patient doesnt PT Pain Bilateral Back: Pain Intensity (Out of 10): 7 Overall Improvement % Improvement: 20 Objective Objective/Function: Objective: POSTURE: mild forward posture GAIT: reciprocal pattern PALPATION: unremarkable FLEXABILITY: hamstrings mod tight MMT: ( peak force) quads right 17.1,left 16.9 ,hip flexion 19.9 ,left 17.6 ,hamstrings right 16.9 ,left 17.9 LUMBAR ROM: flexion mod loss ,extension severe loss pain ,side glides mod loss Goals Goal 1:: Patient to be I with HEP for back Goal Progress: Progressing Goal 2:: Patient to improve strength peak force quads/hams/hip by 5-10 # to improve function Goal Progress: Goal Met Goal 3:: Patient to improve lumbar ROM for function of recovery for ADLS Goal 4:: Patient to improve back oswestry score by 5 points to improve QOL Goal Progress: Progressing Goal 5:: Patient to improve CATSIB by 5-10 points to improve balance Goal Progress: Progressing Goal 6:: Patient to improve ability to walking and stand > 15 mins for ADLS Goal Progress: Progressing Plan Plan: D/C D/C Information Discharge Comments: HEP d/c sentence: If there are questions or concerns regarding this patient's physical therapy, please feel free to call me at [phone]. Thank you for the referral of this patient. Sincerely, Flavio Negrete, PT, Cert MDT, OCS Balance/Gait/Functional tests Balance/Special Test Scores CATSIB Score (Max score 120 seconds): 65 Lower Extremity Functional Score: 42 Improvement % Improvement: 20
== END 2024-12-25 19:00 | disposition home or self-care (01) ==
LOC: PT 10:00
PROVIDERS: PCP Family Medicine Geriatric Medicine; Referring Provider Nurse Practitioner Family; Visit Provider Nurse Practitioner Family
DX: R29.898 Other symptoms and signs involving the musculoskeletal system (principal)
CPT/HCPCS: 97110; 97162; 97530

== ENCOUNTER → 2025-01-03 | Outpatient (CLI) | payer MEDICAID, SELFPAY ==
[2025-01-03 14:07] LABS: Absolute Lymphocyte Count 1.77 X10^3/uL (0.83-4.51); Absolute Neutrophil Count 3.8 X10^3/uL (2.0-7.7); Basophil# 0.08 X10^3/uL; Basophil% 1.3 % (0-1); Eosinophil# 0.02 X10^3/uL; Eosinophils% 0.3 % (0-5); Hematocrit 39.5 % (37-47); Hemoglobin 13.5 g/dL (12.0-15.0); Lymphocyte # 1.77 X10^3/ul (0.83-4.51); Lymphocyte % 28.7 % (19-41); Mean Corp Hgb Conc 34.2 g/dL (32-36); Mean Corpuscular Hgb 31.7 pg (27.0-32.0); Mean Corpuscular Volume 92.7 fL (81-99); Mean Platelet Vol. 9.3 fl (6.2-12.0); Monocyte% 8.1 % (0-10); NRBC Flagged by Analyzer 0 % (0-5); Neutrophil # 3.78 X10^3/uL (2.7-7.7); Neutrophil % 61.4 % (47-70); Platelet Count 382 K/mm3 (150-450); RBC Distribution Width CV 12.6 % (11.6-14.6); RBC Distribution Width SD 42.6 fl (35.1-43.9); Red Blood Count 4.26 M/mm3 (4.2-5.4); White Blood Count 6.2 K/mm3 (4.4-11.0)
[2025-01-03 14:51] LABS: ALB/GLOB Ratio 1.5 RATIO (0.9-2.4); AST(SGOT) 44 U/L (<=31); Alanine Aminotransfer ALT/SGPT 25 U/L (<=34); Albumin, Serum 4.7 g/dL (3.5-5.0); Alkaline Phosphatase 94 U/L (35-104); Anion Gap 12 (5-15); BUN 26 mg/dL (4-19); BUN/Creat Ratio 46.4 RATIO (10-20); Calcium,Total 10.1 mg/dL (7.6-11.0); Chloride 103 mmol/L (98-108); Cholesterol 307 mg/dL (<=200); Creatinine, Serum 0.56 mg/dL (0.70-1.20); EST Glomerular Filtration Rate 107 (>60); Globulin 3.1 g/dL (2.2-4.2); Glucose 106 mg/dL (70-99); High Density Lipoprotein 65 mg/dL; Low Density Lipoprotein Calc. 221 mg/dL; Potassium 4.7 mmol/L (3.3-5.1); Protein, Total 7.8 g/dL (5.9-8.4); Sodium Level 139 mmol/L (133-145); Total Bilirubin 0.32 mg/dL (0.00-1.30); Triglycerides 108 mg/dL; Very Low Density Lipoprotein 22 mg/dL (5-40); cholesterol:hdl ratio screen 4.74
== END | disposition home or self-care (01) ==
LOC: LAB 13:34
PROVIDERS: PCP Family Medicine Geriatric Medicine; Referring Provider Family Medicine Geriatric Medicine; Visit Provider Family Medicine Geriatric Medicine
DX: I10 Essential (primary) hypertension (principal); E78.5 Hyperlipidemia, unspecified
CPT/HCPCS: 36415; 80053; 80061; 84443; 85025

== ENCOUNTER → 2025-01-17 | Outpatient (CLI) | payer MEDICAID, SELFPAY ==
--- NOTE | 2025-01-17 13:18 | RAD_ITS ---
PROCEDURE: CERV SPINE 2 OR 3 VIEWS 01/17/2025 REASON FOR EXAM: RADICULOPATHY, CERVICAL REGION TECHNIQUE: 3 views of the cervical spine. COMPARISON: None available FINDINGS: Cervical spine is visualized on the lateral view from the skull base to the bottom of C7 with C7 partially obscured by overlying shoulders and C7-T1 not well seen. No fracture or malalignment. No prevertebral soft tissue swelling. The visualized disc spaces appear within limits. Visualized apices appear clear. Appearance of bilateral mild carotid calcific plaque formation. The odontoid is overlapped with the skull base and not well seen on the open- mouth view. Appearance of mild asymmetric left facet degenerative changes at C4-5 on the AP view. RAD/Cerv Spine 2 or 3 Views IMPRESSION: Appearance of mild asymmetric left facet degenerative changes at C4-5 on the AP view. Reading Location: [id number]
== END | disposition home or self-care (01) ==
LOC: RAD 13:17
PROVIDERS: PCP Family Medicine Geriatric Medicine; Referring Provider Anesthesiology Pain Medicine; Visit Provider Anesthesiology Pain Medicine
DX: M54.12 Radiculopathy, cervical region (principal)
CPT/HCPCS: 72040

== ENCOUNTER → 2025-02-11 | Outpatient (CLI) | payer MEDICAID, SELFPAY ==
--- NOTE | 2025-02-11 08:50 | BI_ITS ---
EXAM: DIAG MAMM W/CAD, BILAT N/A CLINICAL HISTORY: F, Age 54 y/o , FOLLOW UP TREATED BREAST CANCER TECHNIQUE: Bilateral Diagnostic digital breast tomosynthesis with 2D and 3D images. Computer aided detection. COMPARISON: Prior exam(s) dated 11/23/2024, 01/06/2024, and 01/03/2024 . FINDINGS: TISSUE DENSITY: The breast tissue is composed of scattered area of fibroglandular density. Bilateral Breast Mammographic Findings: Architectural distortion, increased density and surgical clips are seen in the superior outer aspect of the right breast at the post lumpectomy site. This area appears stable. A few benign-appearing round microcalcifications are seen in the breast. There is no mammographic abnormality seen to suggest new or recurrent malignancy however, a short-term follow-up mammogram is recommended to document stability of the architectural distortion and density. No suspicious masses, suspicious cluster of microcalcifications, architectural distortion or secondary sign of malignancy is identified in the left breast. BI/DIAG MAMM W/CAD, BILAT IMPRESSION: OVERALL FINAL ASSESSMENT: BIRADS 3 PROBABLY BENIGN. RECOMMENDATION: Short interval follow-up. A letter with findings and recommendations will be mailed to the patient. Reading Location: [id number]
== END | disposition home or self-care (01) ==
LOC: OPBI 08:49
PROVIDERS: PCP Family Medicine Geriatric Medicine; Referring Provider Student in an Organized Health Care Education/Training Program; Visit Provider Student in an Organized Health Care Education/Training Program
DX: Z08 Encounter for follow-up examination after completed treatment for malignant neoplasm (principal); Z12.31 Encounter for screening mammogram for malignant neoplasm of breast; Z85.3 Personal history of malignant neoplasm of breast
CPT/HCPCS: 77062; 77066; G0279

== ENCOUNTER 2025-02-13 09:30 | Day surgery (SDC) | payer MEDICAID, SELFPAY ==
[2025-02-13] VITALS (7 sets, daily range): BP systolic 145–159; BP diastolic 79–92; PULSE 75–89; RESP 16–18; TEMP 36.7–37.4; O2SAT 98–100; BMI 25.1
[2025-02-13] MEDS: Lactated Ringers 1,000 ML 15 ML IV (10:16)
--- NOTE | 2025-02-13 10:41 | PCM.PRE.AN2 ---
ASA Classification* ASA Classification ASA Classification: 2 Assessment & Plan Anesthesia* Anesthesia Assessment Anesthesia Assessment: Discussed sedation and/or anesthesia options, risks, benefits, and alternatives with patient/parents/legal guardian/POA. Questions invited. The patient/parents/legal guardian/POA seems to understand and agrees to proceed with anesthesia plan. Reviewed the physical assessment, medical history, allergy history and patient home medications list prior to surgery/procedure/anesthetic and documented any changes. Performed airway and anesthesia risk assessments. Anesthesia Type Anesthesia Type: MAC History Source History Obtained from:: Patient and Chart Anesthesia Focused Assessment* Temperature: 98.0 F Pulse Rate: 75 Blood Pressure: 159/92 Respiratory Rate: 18 Pulse Ox: 98 Oxygen Delivery Method: Room Air Airway Assessment Mouth opens: >3 cm Mallampati Score: II Teeth Condition: Intact Neck Range of motion (ROM): Full ROM Focused Labs Anesthesia Preop lab: CBC WBC 6.2 K/mm3 (4.4-11.0) 01/03/25 13:48 01/03/25 RBC 4.26 M/mm3 (4.2-5.4) 01/03/25 13:48 01/03/25 Hgb 13.5 g/dL (12.0-15.0) 01/03/25 13:48 01/03/25 Hct 39.5 % (37-47) 01/03/25 13:48 01/03/25 Plt Count 382 K/mm3 (150-450) 01/03/25 13:48 01/03/25 CHEMISTRY Potassium 4.7 mmol/L (3.3-5.1) 01/03/25 13:48 01/03/25 Sodium 139 mmol/L (133-145) 01/03/25 13:48 01/03/25 Magnesium 2.1 mg/dL (1.6-2.6) 07/12/24 13:55 07/12/24 Phosphorus 3.2 mg/dL (2.5-4.9) 06/28/24 09:00 06/28/24 BUN 26 mg/dL (4-19) H 01/03/25 13:48 01/03/25 Creatinine 0.56 mg/dL (0.70-1.20) L 01/03/25 13:48 01/03/25 Glucose 106 mg/dL (70-99) H 01/03/25 13:48 01/03/25 POC Glucose 89 mg/dL (70-110) 02/12/20 06:10 02/12/20 TSH 1.610 uIU/mL (0.300-4.200) 01/03/25 13:48 01/03/25 COAG PT 12.8 SECONDS (11.7-14.9) 07/14/16 17:05 07/14/16 Urine Test Negative Negative 02/08/17 05:40 02/08/17 Pre-Assessment Diagnosis/Proposed Procedure Planned Operative Procedure(s): RIGHT WRIST DEQUERVAINS TENSYNOVITIS RIGHT WRIST FIRST DORSAL COMPARTMENT RELEASE Anesthesia History 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 When Was Last Pacemaker Check QUESTION #4 FULL TEXT: You/Your Family Experience fever (hyperthermia) with Anesthesia Last Oral Intake Last Oral intake: Last Oral Intake NPO since 07:00 02/13/25 10:07 Meds taken in AM with sips of Yes 02/13/25 10:07 water? 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 Female Yes 02/07/25 11:17 HX of Motion Sickness No 02/07/25 11:17 HX of N/V After Surgery No 02/07/25 11:17 Non-Smoker Yes 02/07/25 11:17 Duration of Surgery greater Yes 02/07/25 11:17 than 60 minutes Number of Risk Factors 3 02/07/25 11:17 PONV Score Moderate Risk 02/07/25 11:17 Height & Weight Height & Weight: Anesthesia: Height & Weight Height 5 ft 8 in 02/13/25 10:07 Weight: 75 kg 02/13/25 10:07 Body Mass Index (BMI) 25.1 02/13/25 10:07 Respiratory Assessment Respiratory Assessment - spooling machine operator: Respiratory Tract Infection Hx - spooling machine operator Hx Respiratory Tract Infection No 02/07/25 11:28 STOP Sleep Apnea STOP Sleep Apnea - spooling machine operator: STOP Sleep Apnea - spooling machine operator Hx Hypertension No 02/07/25 11:28 Hx Sleep Apnea No 02/07/25 11:28 CPAP No 01/25/25 09:06 BIPAP Do you snore loudly (louder No 02/07/25 11:17 than talking or can be heard Do you often feel tired/ Yes 02/07/25 11:17 fatigued/ sleepy during daytime? Has anyone observed you stop No 02/07/25 11:17 breathing during sleep? STOP Results Negative 02/07/25 11:17 QUESTION #5 FULL TEXT : Do you snore loudly (louder than talking or can be heard through closed doors)? 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 Specify any problems Hx of Preganancy in last 3 No 02/07/25 11:17 Months Nurse Filling Out Transfusion DSCHRIBER 02/07/25 11:17 & Questions: Date: 02/07/25 02/07/25 11:17 Time: 11:18 02/07/25 11:17 Patient unable to answer at this time (ie. confused, unrespo /Reproduction History /Reproductive History - spooling machine operator: /Reproductive Hx- spooling machine operator Hx Now No 02/07/25 11:17 Gestational Age (in weeks): EDC: Hx Hx Para Hx Section SAB No 02/07/25 11:28 Active Medications Active Medications: Current Medications Generic Name Dose Route Start Last Admin Trade Name Freq PRN Reason Stop Dose Admin Clindamycin Phosphate 900 mg in 50 mls @ 75 mls/hr 02/13/25 11:00 Cleocin IV 02/13/25 11:39 INTRAOP ONE Lactated Ringer's 1,000 mls @ 15 mls/hr 02/13/25 09:45 02/13/25 10:16 IV 15 mls/hr .Q48H DEEPAK Administration PFSH Medical History (Updated 02/07/25 @ 11:23 by Madeline Magdaleno) Anemia Bilateral leg weakness History of breast cancer Breast pain, right Well woman exam Urinary incontinence Dysuria Encounter for chemotherapy management Diarrhea due to drug Hypokalemia 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 Mucositis CINV (chemotherapy-induced nausea and vomiting) Encounter for education Post-menopausal Cancer Arthritis Migraine headache Former smoker History of pain when walking Mass of right breast History of tobacco use Encounter for screening for malignant neoplasm of lung History of kidney stones History of Thoracic Fracture Back pain Anxiety Endometriosis Home Medications ?Medication ?Instructions ?Recorded ?Last Taken ?Type duloxetine 30 mg capsule,delayed 30 mg PO DAILY anx 07/19/16 02/13/25 07:00 History release multivitamin with folic acid 400 1 tab PO DAILY Check with primary 07/19/16 Unknown History mcg tablet doctor tizanidine 4 mg capsule (Zanaflex) 4 mg PO QHS PRN Check with primary 01/18/20 Unknown History doctor meloxicam 7.5 mg tablet 7.5 mg PO DAILY 10/28/20 03/12/24 History hydrocodone-acetaminophen 5-325mg 1 tab PO BID PRN pain 05/10/24 Unknown History 5mg-325mg anastrozole 1 mg tablet 1 mg PO DAILY #90 tabs 08/20/24 02/13/25 07:00 Rx calcium carbonate 600 mg PO DAILY Help with bone loss 12/04/24 Unknown History buprenorphine 20 mcg/hour weekly 1 patch topical GALEANA 02/07/25 02/10/25 History transdermal patch (Butrans) Allergy/AdvReac Type Severity Reaction Status Date / Time cephalexin (From Keflex) Allergy Rash Verified 02/13/25 10:03 Family History Mother Diabetes Arthritis Anemia Hypertension Grandfather Diabetes CVA (cerebral vascular accident) Grandmother Arthritis Surgical History (Updated 02/07/25 @ 11:30 by Madeline Magdaleno) History of surgery on right wrist History of vascular access device History of lumpectomy of right breast Hx of thumb surgery H/O colectomy History of appendectomy H/O elbow surgery clavicle surgery History of back surgery H/O shoulder surgery History of left oophorectomy Social History current occupational status: unemployed Smoking Status: Former smoker alcohol intake: never substance use type: does not use caffeine: Yes what type of physical activity do you participate in: walking and other details: Horseback Riding seatbelt use: always do you feel safe at home: Yes additional social history: Review of Systems (Anesthesia) ROS Narrative System reviewed and no additional complaints, except as documented.
--- NOTE | 2025-02-13 11:21 | HP.PCM.SX_ITS ---
HPI - General HPI Narrative FEDE HERZOG, is a 54 F who presents with right side De Quervain's tenosynovitis, refractory to splinting. Current Encounter (DATE OF SURGERY H&P UPDATE): I saw and examined the patient this morning in pre-operative holding. We discussed risks and benefits of today's surgery and they would like to proceed. NO CHANGE in health history since last seen and evaluated. Ready to proceed with surgery. 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 Mucositis CINV (chemotherapy-induced nausea and vomiting) Encounter for education Post-menopausal Cancer Arthritis Migraine headache Former smoker History of pain when walking Mass of right breast History of tobacco use Encounter for screening for malignant neoplasm of lung History of kidney stones History of Thoracic Fracture Back pain Anxiety Endometriosis Home Medications ?Medication ?Instructions ?Recorded ?Last Taken ?Type duloxetine 30 mg capsule,delayed 30 mg PO DAILY anx 02/13/25 07:00 History release multivitamin with folic acid 400 1 tab PO DAILY Check with primary 07/19/16 Unknown History mcg tablet doctor tizanidine 4 mg capsule (Zanaflex) 4 mg PO QHS PRN Rossy ck with primary 01/18/20 Unknown History doctor meloxicam 7.5 mg tablet 7.5 mg PO DAILY 10/28/2010/05 History hydrocodone-acetaminophen 5-325mg 1 tab PO BID PRN maureen n 05/10/24 Unknown History 5mg-325mg anastrozole 1 mg tablet 1 mg PO DAILY #90 tabs 08/2002/13/25 07:00 Rx calcium carbonate 600 mg PO DAILY Help with emerita ne loss 12/04/24 Unknown History buprenorphine 20 mcg/hour weekly 1 patch topical GALEANA 02/10/25 History transdermal patch (Butrans) Allergy/AdvReac Type Severity Reaction Status Date / Time cephalexin (From Keflex) Allergy Rash Verified 02/13/25 10:03 Family History Mother Diabetes Arthritis Anemia Hypertension Grandfather Diabetes CVA (cerebral vascular accident) Grandmother Arthritis Surgical History (Updated 02/07/25 @ 11:30 by Madeline Magdaleno) History of surgery on right wrist History of vascular access device History of lumpectomy of right breast Hx of thumb surgery H/O colectomy History of appendectomy H/O elbow surgery clavicle surgery History of back surgery H/O shoulder surgery History of left oophorectomy Social History current occupational status: unemployed Smoking Status: Former smoker alcohol intake: never substance use type: does not use caffeine: Yes what type of physical activity do you participate in: walking and other details: Horseback Riding seatbelt use: always do you feel safe at home: Yes additional social history: Vital Signs Vital Signs Vital Signs: 02/13/25 10:07 02/13/25 10:07 02/13/25 10:43 Temperature 98.0 F 98.0 F Temperature Source Temporal Pulse Rate 75 75 Respiratory Rate 18 18 Respiratory Pattern Normal Blood Pressure 159/92 H 159/92 H Blood Pressure Mean 114 Blood Pressure Source Monitor Blood Pressure Position Sitting Blood Pressure Location Left Arm Pulse Ox 98 98 Oxygen Delivery Method Room Air Room Air Weight Weight: 165 lb 5.547 oz Body Mass Index (BMI) 25.1 Physical Exam Narrative RIGHT Upper Extremity Inspection: Warm and pink hand, no obvious deformity Palpation: Tenderness to palpation on the radial side of the distal radius along the first dorsal compartment. Positive Letty's test. Positive Eickhoff's test (positive provocative maneuvers for de Quervain's). No pain with axial grind of the thumb. Motor: Able to bend and extend all MP, PIP, and DIP joints. Sensory: Intact to light touch on the radial and ulnar borders. Vascular: Finger tips are warm and well perfused with <2 second capillary refill. Left upper extremity Well-healed incision with great scar over the left first dorsal compartment from her previous de Quervain's release Assessment & Plan Assessment/Plan (1) De Quervain's tenosynovitis, right: PLAN: Symptoms and physical exam consistent with de Quervain's tenosynovitis. I talked to the patient extensively about the risks of surgery, including bleeding, infection, damage to surrounding structures (we notably discussed damage including transection or neuropraxia of the superficial branch of the radial nerve and the subsequent numbness that could result. We also discussed damage to the volar aspect of the first dorsal compartment and subsequent tendon subluxation as a possible risk), poor scaring, surgical site dehiscence and wound formation, need for wound care, need for repeat operations, failure to obtain the desired result, persistent pain despite successful operation without any improvement, and the risks of anesthesia. The benefits and alternatives of this surgery were also discussed. We talked about the alternative of continued bracing, NSAIDs , and a steroid injection; however , she is not interested in any further nonoperative management at this time if she would like definitive treatment if possible, and is accepting of the risks of failure to obtain the desired result and possible damage to surrounding structures. All of their questions were answered, and they agreed to proceed with surgery. Plan for first dorsal compartment release right side, Mac/Local Patient happy with the plan. INTERVAL H&P PLAN, DATE OF SURGERY: We will proceed with surgery today.
[2025-02-13] MEDS: Clindamycin 900 MG/50 ML BAG 75 MG IV (11:31)
[2025-02-13] MEDS: Bupiv/Epi 0.25% 30 ML Vial (12:18)
--- NOTE | 2025-02-13 12:34 | PCM.POST.ANE ---
Anesthesia: Postop Eval I Current Vital Signs Temperature: 99 F Pulse Rate: 89 Blood Pressure: 151/82 Respiratory Rate: 18 Pulse Ox: 100 Oxygen Delivery Method: Room Air Assessment Airway patent: Yes Spontaneous unlabored respirations: Yes Mental status: Awake nausea: No Vomiting: No Anesthesia Complication: No Fluid Hydration Crystalloid volume administer (ml): 800 Total IV fluid infused: 800 Progress Note Anesthesia document: Postop Eval 1 completed: Yes
--- NOTE | 2025-02-13 15:40 | POSTOPAN2_ITS ---
Anesthesia Postop Eval I Sum Postop Eval Completion status Anesthesia document: Postop Eval 1 completed: Yes Anesthesia Postop Eval I Summary Anesthesia Postop Eval I Summary: Anesthesia Postop Eval I: Assessment Summary Airway patent Yes 02/13/25 12:35 DAIRY EQUIPMENT MECHANIC.[email or web address] Spontaneous unlabored Yes 02/13/25 12:35 DAIRY EQUIPMENT MECHANIC.[email or web address] respirations Mental status Awake 02/13/25 12:35 DAIRY EQUIPMENT MECHANIC.[email or web address] nausea No 02/13/25 12:35 DAIRY EQUIPMENT MECHANIC.[email or web address] Vomiting No 02/13/25 12:35 DAIRY EQUIPMENT MECHANIC.[email or web address] Anesthesia Postop Eval I: Fluid Summary Crystalloid volume administer 800 02/13/25 12:35 DAIRY EQUIPMENT MECHANIC.LMIL (ml) Colloids volume administered ( ml) Blood Product volume administered (ml) Total IV fluid infused 800 02/13/25 12:35 DAIRY EQUIPMENT MECHANIC.[email or web address] Anesthesia Postop Eval I: Summary Notes Anesthesia Complication No 02/13/25 12:35 DAIRY EQUIPMENT MECHANIC.[email or web address] Anesthesia Complication Comment: Post-operative progress note Anesthesia: Postop Eval II Evaluation Mental status: Awake Pain Level: 0 nausea: No Vomiting: No Complications Anesthesia Complication: No
--- NOTE | 2025-02-13 15:40 | PCM.POSTANE2 ---
Anesthesia Postop Eval I Sum Postop Eval Completion status Anesthesia document: Postop Eval 1 completed: Yes Anesthesia Postop Eval I Summary Anesthesia Postop Eval I Summary: Anesthesia Postop Eval I: Assessment Summary Airway patent Yes 02/13/25 12:35 ELECTRONIC FUNDS TRANSFER COORDINATOR.[email or web address] Spontaneous unlabored Yes 02/13/25 12:35 ELECTRONIC FUNDS TRANSFER COORDINATOR.LMIL respirations Mental status Awake 02/13/25 12:35 ELECTRONIC FUNDS TRANSFER COORDINATOR.LMIL nausea No 02/13/25 12:35 ELECTRONIC FUNDS TRANSFER COORDINATOR.LMIL Vomiting No 02/13/25 12:35 ELECTRONIC FUNDS TRANSFER COORDINATOR.LMIL Anesthesia Postop Eval I: Fluid Summary Crystalloid volume administer 800 02/13/25 12:35 ELECTRONIC FUNDS TRANSFER COORDINATOR.LMIL (ml) Colloids volume administered ( ml) Blood Product volume administered (ml) Total IV fluid infused 800 02/13/25 12:35 ELECTRONIC FUNDS TRANSFER COORDINATOR.LMIL Anesthesia Postop Eval I: Summary Notes Anesthesia Complication No 02/13/25 12:35 ELECTRONIC FUNDS TRANSFER COORDINATOR.LMIL Anesthesia Complication Comment: Post-operative progress note Anesthesia: Postop Eval II Evaluation Mental status: Awake Pain Level: 0 nausea: No Vomiting: No Complications Anesthesia Complication: No
--- NOTE | 2025-02-13 17:02 | OP.PCM_ITS ---
Operative Report (Standard) Operative Information Date of Procedure: 02/13/25 Pre-Operative Diagnosis: Right wrist de Quervain's tenosynovitis Post-Operative Diagnosis: Same Surgery/Procedure Performed: 1) Excision of first dorsal compartment for right w rist De Quervain's tenosynovitis (CPT 18995) guard driver: Yes Ux Specialist: Yenifer Ashton Tasks completed by certified surgical first assistant: Retracting Type of Anesthesia: Block,Cassie/Supplemental (With subsequent 4 cc of 0.25% Marcaine with 1-200,000 epinephrine) RN Documented Start/Stop Times: Operation Date: 02/13/25 11:00 Case Time Into Pre-Op 02/13/25 09:41 Anesthesia Start 02/13/25 11:31 Into Room 02/13/25 11:31 Procedure Start 02/13/25 11:53 Procedure End 02/13/25 12:22 Anesthesia End 02/13/25 12:26 Out of Room 02/13/25 12:26 Into Recovery 02/13/25 12:29 Into Phase II Recovery 02/13/25 12:45 Out of Recovery 02/13/25 12:45 Out of Phase II 02/13/25 13:15 Procedure Start Time: 11:53 Procedure Stop Time: 12:22 Select all DRAINS/GRAFTS/IMPLANTS that apply: None Estimated Blood Loss: Minimal Specimen collected: No Description of surgery: Indications: Arti Luis is a delightful 54-year-old female with right wrist de Quervain's tenosynovitis. She had a left de Quervain's tenosynovitis first dorsal compartment release performed by another surgeon and it improved her wrist pain significantly. She presents today for first dorsal compartment release on the right side. She understands the risks, benefits, and alternatives to the procedure, and she would like to proceed. Procedure details: Patient was correctly identified in preoperative holding and I marked the right wrist. She was taken back to the operating room where she was administered a [place]andah block and prepped and draped in sterile fashion. All proper timeouts were performed. The tourniquet was inflated to 250 mmHg on the right arm for the [place] block. Using a 15 blade scalpel, a longitudinal incision was made over the radial styloid through the skin only and careful dissection was taken down with tenotomy scissors under 3.5x loupe magnification with careful longitudinal spread so as to prevent injury to the superficial branches of the radial nerve. 2 branches in this location were identified and retracted carefully. Dissection was then taken over the radial side of the radial styloid and the first dorsal compartment was identified. 15 blade scalpel was used to incise the first dorsal compartment as dorsally and as possible in one continuous longitudinal incision so as to prevent tendon subluxation volarly. The tunnel/septum were completely released, and slips of the EPB and several slips of the APL were identified within the tunnel, and retracted with a Ragnell, confirming adequate release. The tourniquet was then let down and hemostasis obtained with bipolar electrocautery. The wound was irrigated with copious amounts normal saline. The incision was closed with 3-0 Monocryl deep dermal sutures followed by running subcuticular 3-0 Monocryl as well as Steri-Strips. Patient tolerated the procedure well. 4 x 4 gauze, Augie and loose Coban was applied. She was taken to the PACU in stable condition. Surgical Findings: Thick first dorsal compartment sheath/tunnel Complications Complications: No
== END 2025-02-13 13:15 | disposition home or self-care (01) ==
LOC: SDC 09:30 → AC 09:31
PROVIDERS: PCP Family Medicine Geriatric Medicine; Referring Provider Surgery Plastic and Reconstructive Surgery; Visit Provider Surgery Plastic and Reconstructive Surgery
PROC: (CPT 25000; principal; 2025-02-13 10:45)
DX: M65.4 Radial styloid tenosynovitis [de Quervain] (principal); Z79.899 Other long term (current) drug therapy; Z87.891 Personal history of nicotine dependence; Z85.3 Personal history of malignant neoplasm of breast
CPT/HCPCS: 25000; 01810; J2405

== ENCOUNTER 2025-02-20 08:03 | Day surgery (SDC) | payer MEDICAID, SELFPAY ==
[2025-02-20] VITALS (8 sets, daily range): BP systolic 117–148; BP diastolic 62–98; PULSE 82–97; RESP 16–18; TEMP 36.6–37.1; O2SAT 98–100; BMI 24.7
[2025-02-20] MEDS: Lactated Ringers 1,000 ML 15 ML IV (08:36)
--- NOTE | 2025-02-20 08:42 | PCM.PRE.AN2 ---
ASA Classification* ASA Classification ASA Classification: 2 Assessment & Plan Anesthesia* Anesthesia Assessment Anesthesia Assessment: Discussed sedation and/or anesthesia options, risks, benefits, and alternatives with patient/parents/legal guardian/POA. Questions invited. The patient/parents/legal guardian/POA seems to understand and agrees to proceed with anesthesia plan. Reviewed the physical assessment, medical history, allergy history and patient home medications list prior to surgery/procedure/anesthetic and documented any changes. Performed airway and anesthesia risk assessments. Anesthesia Type Anesthesia Type: MAC Anesthesia Focused Assessment* Temperature: 97.9 F Pulse Rate: 97 Blood Pressure: 148/84 Respiratory Rate: 18 Pulse Ox: 98 Airway Assessment Mouth opens: >3 cm Mallampati Score: II Labs Anesthesia Preop lab: CBC WBC 6.2 K/mm3 (4.4-11.0) 01/03/25 13:48 01/03/25 RBC 4.26 M/mm3 (4.2-5.4) 01/03/25 13:48 01/03/25 Hgb 13.5 g/dL (12.0-15.0) 01/03/25 13:48 01/03/25 Hct 39.5 % (37-47) 01/03/25 13:48 01/03/25 Plt Count 382 K/mm3 (150-450) 01/03/25 13:48 01/03/25 CHEMISTRY Potassium 4.7 mmol/L (3.3-5.1) 01/03/25 13:48 01/03/25 Sodium 139 mmol/L (133-145) 01/03/25 13:48 01/03/25 Magnesium 2.1 mg/dL (1.6-2.6) 07/12/24 13:55 07/12/24 Phosphorus 3.2 mg/dL (2.5-4.9) 06/28/24 09:00 06/28/24 BUN 26 mg/dL (4-19) H 01/03/25 13:48 01/03/25 Creatinine 0.56 mg/dL (0.70-1.20) L 01/03/25 13:48 01/03/25 Glucose 106 mg/dL (70-99) H 01/03/25 13:48 01/03/25 POC Glucose 89 mg/dL (70-110) 02/12/20 06:10 02/12/20 TSH 1.610 uIU/mL (0.300-4.200) 01/03/25 13:48 01/03/25 COAG PT 12.8 SECONDS (11.7-14.9) 07/14/16 17:05 07/14/16 Urine Test Negative Negative 02/08/17 05:40 02/08/17 Pre-Assessment Diagnosis/Proposed Procedure Planned Operative Procedure(s): CSCOPE Anesthesia History Anesthesia History - podiatric assistant: Anesthesia History - podiatric assistant Hx Hospitalization No 02/07/25 11:28 Any Problems With Anesthesia No 02/07/25 11:28 Cholinesterase deficiency No 02/07/25 11:28 You/Your Family Experience No 02/07/25 11:28 fever (hyperthermia) with Relationship Recent Exposure to Contagious No 02/20/25 08:25 Disease Does patient have nerve No 02/07/25 11:28 stimulator Patient instructed to have device shut off --Does patient have Pacemaker or ICD? When Was Last Pacemaker Check QUESTION #4 FULL TEXT: You/Your Family Experience fever (hyperthermia) with Anesthesia Last Oral Intake Last Oral intake: Last Oral Intake NPO since Meds taken in AM with sips of water? Meds patient instructed to take am of surgery PONV PONV - podiatric assistant: PONV - podiatric assistant Female Yes 02/07/25 11:28 HX of Motion Sickness No 02/07/25 11:28 HX of N/V After Surgery No 02/07/25 11:28 Non-Smoker Yes 02/07/25 11:28 Duration of Surgery greater No 02/07/25 11:28 than 60 minutes Number of Risk Factors 2 02/07/25 11:28 PONV Score Moderate Risk 02/07/25 11:28 Height & Weight Height & Weight: Anesthesia: Height & Weight Height 5 ft 8 in 02/20/25 08:26 Weight: 73.936 kg 02/20/25 08:26 Body Mass Index (BMI) 24.7 02/20/25 08:26 Respiratory Assessment Respiratory Assessment - podiatric assistant: Respiratory Tract Infection Hx - podiatric assistant Hx Respiratory Tract Infection No 02/07/25 11:28 STOP Sleep Apnea STOP Sleep Apnea - podiatric assistant: STOP Sleep Apnea - podiatric assistant Hx Hypertension No 02/07/25 11:28 Hx Sleep Apnea No 02/07/25 11:28 CPAP No 02/13/25 12:29 BIPAP Do you snore loudly (louder No 02/07/25 11:28 than talking or can be heard Do you often feel tired/ Yes 02/07/25 11:28 fatigued/ sleepy during daytime? Has anyone observed you stop No 02/07/25 11:28 breathing during sleep? STOP Results Negative 02/07/25 11:28 QUESTION #5 FULL TEXT : Do you snore loudly (louder than talking or can be heard through closed doors)? Tobacco Use History Tobacco Use History - podiatric assistant: Tobacco Use History - podiatric assistant Tobacco Use Smoking Status Former smoker 02/07/25 11:28 Hx Tobacco Use No 02/07/25 11:28 Years Smoking Packs Smoked per Day Smoking Cessation Date was Yes - quit smoking within 15 02/07/25 11:28 within the last 15 years years Hx Smoking Cessation Date 09/12/16 02/07/25 11:28 Hx Smoking Cessation No 02/07/25 11:28 Counseling Hematologic Medial History Hematologic Hx - podiatric assistant: Hematologic Medical Hx - associate broker Hx of Blood Transfusion No 02/07/25 11:28 Hx of Transfusion in last 3 No 02/07/25 11:28 Months Date of Last Transfusion (if within last 3 months) Ever experience any problems No 02/07/25 11:28 with transfusion(s)? Specify any problems Hx of Preganancy in last 3 No 02/07/25 11:28 Months Nurse Filling Out Transfusion DSCHRIBER 02/07/25 11:28 & Questions: Date: 02/07/25 02/07/25 11:28 Time: 11:28 02/07/25 11:28 Patient unable to answer at this time (ie. confused, unrespo /Reproduction History /Reproductive History - podiatric assistant: /Reproductive Hx- podiatric assistant Hx Now No 02/07/25 11:28 Gestational Age (in weeks): EDC: Hx Hx Para Hx Section SAB No 02/07/25 11:28 Active Medications Active Medications: Current Medications Generic Name Dose Route Start Last Admin Trade Name Freq PRN Reason Stop Dose Admin Lactated Ringer's 1,000 mls @ 15 mls/hr 06/11/25 08:15 02/20/25 08:36 IV 15 mls/hr .Q48H DEEPAK Administration PFSH Medical History Anemia Bilateral leg weakness History of breast cancer Breast pain, right Well woman exam Urinary incontinence Dysuria Encounter for chemotherapy management Diarrhea due to drug Hypokalemia 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 Mucositis CINV (chemotherapy-induced nausea and vomiting) Encounter for education Post-menopausal Cancer Arthritis Migraine headache Former smoker History of pain when walking Mass of right breast History of tobacco use Encounter for screening for malignant neoplasm of lung History of kidney stones History of Thoracic Fracture Back pain Anxiety Endometriosis Home Medications ?Medication ?Instructions ?Recorded ?Last Taken ?Type duloxetine 30 mg capsule,delayed 30 mg PO DAILY anx 07/19/16 02/19/25 History release multivitamin with folic acid 400 1 tab PO DAILY Check with primary 07/19/16 02/19/25 History mcg tablet doctor tizanidine 4 mg capsule (Zanaflex) 4 mg PO QHS PRN Check with primary 01/18/20 02/19/25 History doctor meloxicam 7.5 mg tablet 7.5 mg PO DAILY 10/28/20 02/19/25 History hydrocodone-acetaminophen 5-325mg 1 tab PO BID PRN pain 05/10/24 Unknown History 5mg-325mg anastrozole 1 mg tablet 1 mg PO DAILY #90 tabs 08/20/24 02/19/25 Rx calcium carbonate 600 mg PO DAILY Help with bone loss 12/04/24 02/18/25 History buprenorphine 20 mcg/hour weekly 1 patch topical GALEANA 02/07/25 02/17/25 History transdermal patch (Butrans) oxycodone 5 mg tablet 5 mg PO Q12H PRN pain 5 days #10 02/13/25 Unknown Rx tabs Allergy/AdvReac Type Severity Reaction Status Date / Time cephalexin (From Keflex) Allergy Rash Verified 02/20/25 08:23 Family History Mother Diabetes Arthritis Anemia Hypertension Grandfather Diabetes CVA (cerebral vascular accident) Grandmother Arthritis Surgical History History of surgery on right wrist History of vascular access device History of lumpectomy of right breast Hx of thumb surgery H/O colectomy History of appendectomy H/O elbow surgery clavicle surgery History of back surgery H/O shoulder surgery History of left oophorectomy Social History current occupational status: unemployed Smoking Status: Former smoker alcohol intake: never substance use type: does not use caffeine: Yes what type of physical activity do you participate in: walking and other details: Horseback Riding seatbelt use: always do you feel safe at home: Yes additional social history: Review of Systems (Anesthesia) ROS Narrative System reviewed and no additional complaints, except as documented.
--- NOTE | 2025-02-20 09:13 | H&P.OPEN ---
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 Patient is having bowel movements daily denies any blood. Patient denies any family history of colon cancer in an immediate family patient's aunt did have colon cancer., Dad did have polyps. Patient denies any chronic abdominal pain/nausea/vomiting/reflux. [facility] Medical History Anemia Bilateral leg weakness History of breast cancer Breast pain, right Well woman exam Urinary incontinence Dysuria Encounter for chemotherapy management Diarrhea due to drug Hypokalemia 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 Mucositis CINV (chemotherapy-induced nausea and vomiting) Encounter for education Post-menopausal Cancer Arthritis Migraine headache Former smoker History of pain when walking Mass of right breast History of tobacco use Encounter for screening for malignant neoplasm of lung History of kidney stones History of Thoracic Fracture Back pain Anxiety Endometriosis Home Medications ?Medication ?Instructions ?Recorded ?Last Taken ?Type duloxetine 30 mg capsule,delayed 30 mg PO DAILY anx 07/19/16 02/19/25 History release multivitamin with folic acid 400 1 tab PO DAILY Check with primary 07/19/16 02/19/25 History mcg tablet doctor tizanidine 4 mg capsule (Zanaflex) 4 mg PO QHS PRN Check with primary 01/18/20 02/19/25 History doctor meloxicam 7.5 mg tablet 7.5 mg PO DAILY 10/28/20 02/19/25 History hydrocodone-acetaminophen 5-325mg 1 tab PO BID PRN pain 05/10/24 Unknown History 5mg-325mg anastrozole 1 mg tablet 1 mg PO DAILY #90 tabs 08/20/24 02/19/25 Rx calcium carbonate 600 mg PO DAILY Help with bone loss 12/04/24 02/18/25 History buprenorphine 20 mcg/hour weekly 1 patch topical GALEANA 02/07/25 02/17/25 History transdermal patch (Butrans) oxycodone 5 mg tablet 5 mg PO Q12H PRN pain 5 days #10 02/13/25 Unknown Rx tabs Allergy/AdvReac Type Severity Reaction Status Date / Time cephalexin (From Keflex) Allergy Rash Verified 02/20/25 08:23 Family History Mother Diabetes Arthritis Anemia Hypertension Grandfather Diabetes CVA (cerebral vascular accident) Grandmother Arthritis Surgical History History of surgery on right wrist History of vascular access device History of lumpectomy of right breast Hx of thumb surgery H/O colectomy History of appendectomy H/O elbow surgery clavicle surgery History of back surgery H/O shoulder surgery History of left oophorectomy Social History current occupational status: unemployed Smoking Status: Former smoker alcohol intake: never substance use type: does not use caffeine: Yes what type of physical activity do you participate in: walking and other details: Horseback Riding seatbelt use: always do you feel safe at home: Yes additional social history: Past Medical/Surgical History Planned Operation Planned Operative Procedure(s): CSCOPE S.O.S: No Previous Hospitalizations/Surgeries HX Hospitalizations: No HX of Surgeries: MICRODISCECTOMY 2003 BACK SURGERY 2005 PLATE IN CLAVICLE 2006, REMOVAL 2006 2010 REMOVAL SOFT TISSUE MASS LEFT GROIN 07/26/2016 LAPAROSCOPIC LEFT OVARIAN CYSTECTOMY, SALPING-OOPHORECTOMY LEFT L ELBOW ARTHROSCOPY, LATERAL EPICONDRYLAR RELEASE 02/201702/07/19 COLONOSCOPY Any Problems With Anesthesia: No You/Your Family Experience Fever (Hyperthermia) With Anes: No Cholinesterase deficiency: No Cardiovascular Hx Chest Pain within Last 2 months: No Hx of Irregular Heartbeat and/or Afib: No Hx Heart Attack: No Hx Congestive Heart Failure: No Hx Rheumatic Fever: No Hx Hypertension: No Hx Internal Defibrillator: No Hx Pacemaker: No Hx Cardiac Catheterization: No Hx Cardiac Surgery/Stents/Etc.: No Hx Stress Test: No Hx Pain in Legs when Walking/Leg Cramps: No Respiratory Chronic Cough: No HX of Shortness of Breath: No Hoarseness: No Hx Chronic Obstructive Pulmonary Disease (COPD): No Hx Asthma: No Hx Emphysema: No Hx Sleep Apnea: No CPAP: No Hx Respiratory Tract Infection/Cold (presently): No Do You Snore Loudly (louder than talking or can be heard): No Do You Often Feel Tired/ Fatigued/ Sleepy Dring Daytime?: Yes Has Anyone Observed You Stop Breathing During Sleep?: No Result (for STOP score): Negative Hx Smoking: Yes (QUIT SMOKING OCT 2015) Smoking Status: Former smoker Gastrointestinal Hx Gastrointestinal Disorders: No Hx Gastrointestinal Bleed: No Hx Ulcer: No Hx Hiatal Hernia: No Difficulty Chewing/Swallowing: No Special diet followed at home: No Hx Unplanned Weight Loss of 20#: No HX Unplanned Weight Gain of 20#: No Neurological Hx Seizures: No HX Syncope/Blackout Spells/Unconsciousness: No Hx Transient Ischemic Attacks (TIA): No Hx Multiple Sclerosis: No Hx Parkinson's Disease: No Hx Head/Neck Injury: Yes (CONCUSSION PER HX,CERVICAL BULGING DISC) Hx Headaches: No Hx Back Injury/Pain: Yes (DEGENERATIVE DISC, BULGE DISC, BACK SURGERY) Recent Onset of Speech Difficulty: No Restless Legs: No Does patient have nerve stimulator: No Blood Disorder Hx Leukemia: No Bleeding Tendencies: No Hx Deep Vein Thrombosis: No Hx High Cholesterol: No Blood Transmitted Disease: No Hx Hepatitis: No Hx Cirrhosis: No Hx Anemia: No Hx Blood Disorders: No Reproduction : No Is Patient Lactating: No Hx Hysterectomy: No Hx Tubal Ligation: No Are You Post Menopause: Yes Genitourinary Hx Renal Disease: No Musculoskeletal Hx Arthritis: Yes Hx Rheumatoid Arthritis: No Hx Gout: No Recent Onset of an Orthopedic Problem: No Endocrine Hx Diabetes: No Thyroid Disease: No Hx Steroid Therapy: Yes (PAIN MANAGEMENT) Psycho/Social Hx Substance Use: No Hx Alcohol Use: No Hx Anxiety: Yes (ON MED) Hx Depression: No Mental Illness: No Hx Dementia: No Miscellaneous Hx Cancer: No Recent Exposure to Contagious Disease: No Hx of C-Diff: No Any Loose Teeth: No Allergies cephalexin (From Keflex) Allergy (Verified 02/20/25 08:23) Rash Discharge Is Pt Admitted From a Assisted, or a Custodial: No After D/C, Where Do you Plan to Go: Return Home Vital Signs Vital Signs Vital Signs: 02/20/25 08:25 02/20/25 08:26 02/20/25 08:42 Temperature 97.9 F 97.9 F Temperature Source Temporal Pulse Rate 97 97 Respiratory Rate 18 18 Respiratory Pattern Normal Blood Pressure 148/84 H 148/84 H Blood Pressure Mean 105 Blood Pressure Source Monitor Blood Pressure Position Semi-Fowlers Blood Pressure Location Left Arm Pulse Ox 98 98 Oxygen Delivery Method Room Air Weight Weight: 163 lb Body Mass Index (BMI) 24.7 Physical Exam Const alert, oriented x3 and no apparent distress HEENT normocephalic and head/scalp atraumatic Resp normal respiratory effort Cardio regular rate GI soft to palpation and non-tender; Negative for non-distended Palpation: Negative for guarding Extremity no clubbing, cyanosis or edema Skin no rashes or lesions noted Neuro CN's II-XII intact bilaterally Psych mental status grossly normal Assessment & Plan Assessment/Plan (1) S/P right hemicolectomy: Surgery Risks - Colonoscopy Risks Include but are not Limited To: Risks include but are not limited to: Bleeding, perforation requiring further surgery, inability to complete colonoscopy requiring barium enema.
--- NOTE | 2025-02-20 10:20 | PCM.POST.ANE ---
Anesthesia: Postop Eval I Current Vital Signs Temperature: 98.8 F Pulse Rate: 88 Blood Pressure: 117/84 Respiratory Rate: 16 Pulse Ox: 100 Oxygen Delivery Method: Room Air Assessment Airway patent: Yes Spontaneous unlabored respirations: Yes Mental status: Awake and Calm nausea: No Vomiting: No Anesthesia Complication: Yes Anesthesia Complication Comment:: in situ IV infiltrated, case completed before 2nd IV started Fluid Hydration Crystalloid volume administer (ml): 400 Total IV fluid infused: 400 Progress Note Anesthesia document: Postop Eval 1 completed: Yes
--- NOTE | 2025-02-20 10:24 | OP.CCLET_ITS ---
02/20/2025 Carrillo Driscoll MD [address] [place] [address] Re : Colonoscopy procedure for Arti Luis Dear Dr. Driscoll This procedure was performed on Thursday, February 20, 2025. My impressions and recommendations are as follows: Impressions : - Patent [id number] ileo-colonic anastomosis, characterized by healthy appearing mucosa. - The entire examined colon is normal. - No specimens collected. Recommendations : - Discharge patient to home. - Resume previous diet. - Continue present medications. - Repeat colonoscopy in 10 years for screening purposes. My findings are described in the full procedure note, which is enclosed. If I can be of further assistance, please feel free to contact me at Doctor phone number(s): , Work: . Sincerely, MD Em Loyola MD 02/20/2025 10:24:32 AM This report has been signed electronically.
--- NOTE | 2025-02-20 10:24 | OP.COLON_ITS ---
Patient Name: Arti Luis Procedure Date: 02/20/2025 10:17 AM Date of : 1970 Age: 54 Procedure: Colonoscopy Indications: High risk colon cancer surveillance: Personal history of colonic polyps Providers: Em Hazel MD Referring MD: Carrillo Driscoll MD Medicines: Monitored Anesthesia Care Patient Profile: This is a 54 year old female. Last Colonoscopy: 2019. Complications: No immediate complications. Procedure: Pre-Anesthesia Assessment: - Prior to the procedure, a History and Physical was performed, and patient medications and allergies were reviewed. The patient's tolerance of previous anesthesia was also reviewed. The risks and benefits of the procedure and the sedation options and risks were discussed with the patient. All questions were answered, and informed consent was obtained. Prior Anticoagulants: The patient has taken no anticoagulant or antiplatelet agents. ASA Grade Assessment: Per anesthesia. After reviewing the risks and benefits, the patient was deemed in satisfactory condition to undergo the procedure. After I obtained informed consent, the scope was passed under direct vision. Throughout the procedure, the patient's blood pressure, pulse, and oxygen saturations were monitored continuously. The Colonoscope was introduced through the anus and advanced to the ileocolonic anastomosis. The colonoscopy was performed without difficulty. The patient tolerated the procedure well. The quality of the bowel preparation was good. Scope In: 10:01:02 AM Scope Withdrawal Time 0 hours 7 minutes 1 second Scope Out: 10:11:04 AM Total Procedure Duration Time 0 hours 10 minutes 2 seconds Findings: The perianal and digital rectal examinations were normal. There was evidence of a prior [id number] ileo-colonic anastomosis in the transverse colon. This was patent and was characterized by healthy appearing mucosa. The entire examined colon appeared normal. Impression: - Patent [id number] ileo-colonic anastomosis, characterized by healthy appearing mucosa. - The entire examined colon is normal. - No specimens collected. Recommendation: - Discharge patient to home. - Resume previous diet. - Continue present medications. - Repeat colonoscopy in 10 years for screening purposes. Procedure Code(s): --- Professional --- G0105, PT, Colorectal cancer screening; colonoscopy on individual at high risk Diagnosis Code(s): --- Professional --- Z86.010, Personal history of colonic polyps Z98.0, Intestinal bypass and anastomosis status CPT copyright 2021 [employer]. All rights reserved. The codes documented in this report are preliminary and upon plastics engineer review may be revised to meet current compliance requirements. MD Em Loyola MD 02/20/2025 10:24:32 AM This report has been signed electronically. Number of Addenda: 0 Note Initiated On: 02/20/2025 10:17 AM
--- NOTE | 2025-02-20 10:34 | PCM.POSTANE2 ---
Anesthesia Postop Eval I Sum Postop Eval Completion status Anesthesia document: Postop Eval 1 completed: Yes Anesthesia Postop Eval I Summary Anesthesia Postop Eval I Summary: Anesthesia Postop Eval I: Assessment Summary Airway patent Yes 02/20/25 10:21 [email or web address] Spontaneous unlabored Yes 02/20/25 10:21 [email or web address] respirations Mental status Awake,Calm 02/20/25 10:21 [email or web address] nausea No 02/20/25 10:21 [email or web address] Vomiting No 02/20/25 10:21 [email or web address] Anesthesia Postop Eval I: Fluid Summary Crystalloid volume administer 400 02/20/25 10:21 [email or web address] (ml) Colloids volume administered ( ml) Blood Product volume administered (ml) Total IV fluid infused 400 02/20/25 10:21 [email or web address] Anesthesia Postop Eval I: Summary Notes Anesthesia Complication Yes 02/20/25 10:21 [email or web address] Anesthesia Complication in situ IV 02/20/25 10:21 [email or web address] Comment: infiltrated, case completed before 2nd IV started Post-operative progress note Anesthesia: Postop Eval II Evaluation Mental status: Awake Pain Level: 0 nausea: No Vomiting: No
== END 2025-02-20 10:54 | disposition home or self-care (01) ==
LOC: EN 08:04 → AC 08:05
PROVIDERS: PCP Family Medicine Geriatric Medicine; Referring Provider Family Medicine Geriatric Medicine; Visit Provider Surgery
PROC: 0DJD8ZZ Inspection of Lower Intestinal Tract, Via Natural or Artificial Opening Endoscopic (ICD-10-PCS; CPT 45378; principal; 2025-02-20 09:25)
DX: Z12.11 Encounter for screening for malignant neoplasm of colon (principal); Z86.0100 Personal history of colon polyps, unspecified; Z87.891 Personal history of nicotine dependence; Z90.49 Acquired absence of other specified parts of digestive tract; Z79.899 Other long term (current) drug therapy; F41.9 Anxiety disorder, unspecified; Z98.0 Intestinal bypass and anastomosis status
CPT/HCPCS: G0105; J2405

== ENCOUNTER → 2025-04-12 | Outpatient (CLI) | payer MEDICAID, SELFPAY ==
[2025-04-12 11:00] LABS: Hematocrit 38.9 % (37-47); Hemoglobin 13.3 g/dL (12.0-15.0); Immature Granulocytes Count 0.010 X10^3/uL (0.0-0.0); Mean Corp Hgb Conc 34.2 g/dL (32-36); Mean Corpuscular Volume 93.5 fL (81-99); Mean Platelet Vol. 9.5 fl (6.2-12.0); NRBC Flagged by Analyzer 0 % (0-5); Platelet Count 380 K/mm3 (150-450); RBC Distribution Width CV 12.1 % (11.6-14.6); RBC Distribution Width SD 42.0 fl (35.1-43.9); Red Blood Count 4.16 M/mm3 (4.2-5.4); White Blood Count 4.3 K/mm3 (4.4-11.0)
[2025-04-12 11:59] LABS: AST(SGOT) 24 U/L (<=31); Alanine Aminotransfer ALT/SGPT 16 U/L (<=34); Albumin, Serum 4.7 g/dL (3.5-5.0); Alkaline Phosphatase 107 U/L (35-104); Anion Gap 12 (5-15); BUN 21 mg/dL (4-19); BUN/Creat Ratio 34.7 RATIO (10-20); Calcium,Total 9.7 mg/dL (7.6-11.0); Carbon Dioxide 25.1 mmol/L (21.0-32.0); Chloride 106 mmol/L (98-108); Globulin 3.0 g/dL (2.2-4.2); Glucose 89 mg/dL (70-99); Potassium 4.6 mmol/L (3.3-5.1); Vitamin B12 436 pg/mL (180-914)
[2025-04-15 17:08] LABS: PROEL- A/G Ratio 1.3 (0.7-1.7); PROEL- Albumin 4.0 g/dL (2.9-4.4); PROEL- Alpha-1 Globulin 0.3 g/dL (0.0-0.4); PROEL- Alpha-2 Globulin 0.9 g/dL (0.4-1.0); PROEL- Beta Globulin 1.2 g/dL (0.7-1.3); PROEL- Gamma Globulin 0.8 g/dL (0.4-1.8); PROEL- Globulin, Total 3.2 g/dL (2.2-3.9); PROEL- TOTAL PROTEIN 7.2 g/dL (6.0-8.5); PROEL-M-Spike Not Observed g/dL (Not Observed)
== END | disposition home or self-care (01) ==
LOC: POLAB3 10:44
PROVIDERS: PCP Family Medicine Geriatric Medicine; Visit Provider Family Medicine Geriatric Medicine
DX: E78.5 Hyperlipidemia, unspecified (principal); E87.1 Hypo-osmolality and hyponatremia; I10 Essential (primary) hypertension
CPT/HCPCS: 36415; 80053; 82607; 84165; 84443; 85025

== ENCOUNTER 2025-04-18 11:18 | Emergency (ER) | payer MEDICAID, SELFPAY ==
[2025-04-18 11:19] VITALS: BP 172/90; PULSE 74; RESP 18; TEMP 36.4; O2SAT 99; BMI 25.4
--- NOTE | 2025-04-18 11:45 | EX.ED.DYSGE1 ---
HPI History of Present Illness Chief Complaint: Lower Extremity Injury Narrative Narrative: Chief complaint and HPI: Right foot pain. 55-year-old female with multiple comorbidities presents for evaluation of right foot pain. Patient states she stepped off of her father's porch in which she heard a pop. She then developed pain and swelling in the lateral medial aspect of her foot. She endorses pain in this area. She denies any numbness or tingling. Denies any ankle pain. Review of systems: See HPI Medications: As listed on the chart Allergies: As listed on the chart PFSH: Per chart Vital signs: As listed on the chart. Reviewed. Physical exam: Gen: A&O x3, NAD Head: Normocephalic, atraumatic Eyes: No sclera icterus, conjunctiva clear ENT: Moist mucous membranes CV: Regular rate Resp: Nonlabored respiration Musc: Full range of motion of the right lower extremity except for limited in foot secondary to pain. Patient has obvious swelling to the lateral medial aspect of the foot where she is tender to palpation, no fifth metatarsal tenderness, she has mild tenderness to the inferior aspect of the lateral malleolus without any swelling, DP/PT pulses +2 bilaterally, good capillary refill, compartments soft, sensation intact, no calcaneal tenderness, Achilles tendon intact Skin: Warm, dry Neuro: Alert, oriented, grossly intact, sensation intact Psych: Cooperative, appropriate mood and affect [facility] Medical History Anemia Bilateral leg weakness History of breast cancer Breast pain, right Well woman exam Urinary incontinence Dysuria Encounter for chemotherapy management Diarrhea due to drug Hypokalemia 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 Mucositis CINV (chemotherapy-induced nausea and vomiting) Encounter for education Post-menopausal Cancer Arthritis Migraine headache Former smoker History of pain when walking Mass of right breast History of tobacco use Encounter for screening for malignant neoplasm of lung History of kidney stones History of Thoracic Fracture Back pain Anxiety Endometriosis Home Medications ?Medication ?Instructions ?Recorded ?Last Taken ?Type duloxetine 30 mg capsule,delayed 30 mg PO DAILY anx 07/19/16 02/19/25 History release multivitamin with folic acid 400 1 tab PO DAILY Check with primary 07/19/16 02/19/25 History mcg tablet doctor tizanidine 4 mg capsule (Zanaflex) 4 mg PO QHS PRN Check with primary 01/18/20 02/19/25 History doctor meloxicam 7.5 mg tablet 7.5 mg PO DAILY 10/28/20 02/19/25 History hydrocodone-acetaminophen 5-325mg 1 tab PO BID PRN pain 05/10/24 Unknown History 5mg-325mg anastrozole 1 mg tablet 1 mg PO DAILY #90 tabs 08/20/24 02/19/25 Rx calcium carbonate 600 mg PO DAILY Help with bone loss 12/04/24 02/18/25 History buprenorphine 20 mcg/hour weekly 1 patch topical GALEANA 02/07/25 02/17/25 History transdermal patch (Butrans) oxycodone 5 mg tablet 5 mg PO Q12H PRN pain 5 days #10 02/13/25 Unknown Rx tabs Allergy/AdvReac Type Severity Reaction Status Date / Time cephalexin (From Keflex) Allergy Rash Verified 04/18/25 11:18 Family History Mother Diabetes Arthritis Anemia Hypertension Grandfather Diabetes CVA (cerebral vascular accident) Grandmother Arthritis Surgical History History of surgery on right wrist History of vascular access device History of lumpectomy of right breast Hx of thumb surgery H/O colectomy History of appendectomy H/O elbow surgery clavicle surgery History of back surgery H/O shoulder surgery History of left oophorectomy Social History current occupational status: unemployed Smoking Status: Former smoker alcohol intake: never substance use type: does not use caffeine: Yes what type of physical activity do you participate in: walking and other details: Horseback Riding seatbelt use: always do you feel safe at home: Yes additional social history: EXAM Physical Exam Const Vital Signs: 04/18/25 11:19 Temperature 97.6 F L Temperature Source Temporal Pulse Rate 74 Respiratory Rate 18 Blood Pressure 172/90 H Blood Pressure Mean 117 Pulse Ox 99 Oxygen Delivery Method Room Air MDM MDM MDM Narrative Medical decision making narrative: 55-year-old female with multiple comorbidities presents for evaluation of right foot pain. Patient states she stepped off of her father's porch in which she heard a pop. She then developed pain and swelling in the lateral medial aspect of her foot. See physical exam findings. Diagnosis includes but is not limited to fracture, sprain, dislocation. [place] given for pain. X-ray of the foot and ankle ordered. X-rays of the foot and ankle were personally reviewed interpreted by me, ED physician. No obvious fracture or dislocation. Radiology in agreement. Patient is pain is likely secondary to a sprain. Will place Billy bandage for comfort. Educated on RICE therapy. Motrin and Tylenol as needed for pain. Follow-up with primary care physician. Return precautions explained. She confirmed understanding of plan. Impression: 1. Right foot sprain Radiography Diagnostic Testing: Clinical Impression(s) from Imaging Studies Ankle X-Ray 04/18/25 11:50 IMPRESSION: NO ACUTE FRACTURE OR DISLOCATION. Reading Location: [id number] Foot X-Ray 04/18/25 11:50 IMPRESSION: NO ACUTE FRACTURE OR DISLOCATION. Reading Location: [id number] Discharge Plan Triage Chief Complaint: Lower Extremity Injury ED Provider: Scot Schreiber Dx/Rx/DC Orders Prescriptions: No Action tizanidine [Zanaflex] 4 mg capsule 4 mg PO QHS PRN (Reason: Check with primary doctor) meloxicam 7.5 mg tablet 7.5 mg PO DAILY hydrocodone-acetaminophen 5-325 mg tablet 1 tab PO BID PRN (Reason: pain) anastrozole 1 mg tablet 1 mg PO DAILY Qty: 90 3RF calcium carbonate 600 mg calcium (1,500 mg) tablet 600 mg PO DAILY Patient Comments: To help reduce the side effect of bone loss while on Anastrozole. duloxetine 30 MG capsule 30 mg PO DAILY Patient Comments: ANXIETY, PAIN multivitamin with folic acid 1 TABLET tablet 1 tab PO DAILY Patient Comments: SUPPLEMENT buprenorphine [Butrans] 20 mcg/hour patch weekly 1 patch topical GALEANA Patient Comments: On left bicep oxycodone 5 mg tablet 5 mg PO Q12H PRN (Reason: pain) 5 Days Qty: 10 0RF Primary Care Provider: Carrillo Driscoll Chi Referrals: Carrillo Driscoll Chi, MD [Primary Care Provider] - Print Language: Tuvaluan
--- NOTE | 2025-04-18 11:50 | RAD_ITS ---
PROCEDURE: ANKLE MIN 3 VIEWS 04/18/2025 REASON FOR EXAM: PAIN TECHNIQUE: ANKLE MIN 3 VIEWS Laterality: Right COMPARISON: None FINDINGS: Bones: No fracture or bony destruction. Joints: Normal alignment. Mortise appears intact. No effusion. Soft tissues: Soft tissues are unremarkable. Other: RAD/Ankle min 3 Views IMPRESSION: NO ACUTE FRACTURE OR DISLOCATION. Reading Location: [facility]
--- NOTE | 2025-04-18 11:50 | RAD_ITS ---
PROCEDURE: FOOT MIN 3 VIEWS 04/18/2025 REASON FOR EXAM: PAIN TECHNIQUE: FOOT MIN 3 VIEWS Laterality: Right COMPARISON: None FINDINGS: Bones: No visible fracture. No suspicious bone lesion. Joints: Normal alignment. Soft tissues: Soft tissues are unremarkable. Other: RAD/Foot min 3 Views IMPRESSION: NO ACUTE FRACTURE OR DISLOCATION. Reading Location: [id number]
[2025-04-18] MEDS: HYDROcodone Bitartrate/Apap 5/325 Tablet PO (12:07)
[2025-04-18 12:32] VITALS: BP 170/96; PULSE 68; RESP 18; TEMP 37.1; O2SAT 99
== END 2025-04-18 12:33 | disposition home or self-care (01) ==
PROVIDERS: Emergency Provider Surgery; PCP Family Medicine Geriatric Medicine; Visit Provider Surgery
DX: S93.601A Unspecified sprain of right foot, initial encounter (principal); Z87.891 Personal history of nicotine dependence; X58.XXXA Exposure to other specified factors, initial encounter
CPT/HCPCS: 73610; 73630; 99282

== ENCOUNTER → 2025-04-23 | Outpatient (CLI) | payer MEDICAID, SELFPAY ==
--- NOTE | 2025-04-23 10:24 | EKG12_ITS ---
Test Reason : SOB Blood Pressure : */* mmHG Vent. Rate : 79 BPM Atrial Rate : 79 BPM P-R Int : 124 ms QRS Dur : 74 ms QT Int : 370 ms P-R-T Axes : 73 58 57 degrees QTcB Int : 424 ms Normal sinus rhythm Possible Left atrial enlargement Cannot rule out Septal infarct , age undetermined Abnormal ECG Confirmed by Edy Mercedes ([id number]), editor in chief newspaper [employer] ([id number]) on 04/24/2025 9:34:31 AM Referred By: Carrillo Driscoll Confirmed By: Edy Mercedes
== END | disposition home or self-care (01) ==
LOC: PSN 10:24
PROVIDERS: PCP Family Medicine Geriatric Medicine; Referring Provider Family Medicine Geriatric Medicine; Visit Provider Family Medicine Geriatric Medicine
DX: R06.02 Shortness of breath (principal); M79.2 Neuralgia and neuritis, unspecified; R20.0 Anesthesia of skin; R29.898 Other symptoms and signs involving the musculoskeletal system
CPT/HCPCS: 93005

== ENCOUNTER → 2025-04-25 | Outpatient (CLI) | payer MEDICAID, SELFPAY ==
--- NOTE | 2025-04-25 08:55 | ART_ITS ---
Reason For Study Reason For Study: Weakness / Numbness in legs Procedure A bilateral lower extremity continuous wave Doppler with analog waveform analysis and ankle brachial indexes. Left Segmental Pressures Left brachial= 169mmHg. Left posterior tibial artery = 196mmHg. Left dorsalis pedis artery = 166mmHg. Left digit = 161 mmHg. The left posterior tibial artery waveforms are triphasic. The left dorsalis pedis waveforms are triphasic. Right Segmental Pressures Right brachial= 176mmHg. Right posterior tibial artery = 197mmHg. Right dorsalis pedis artery = 176mmHg. Right digit = 148 mmHg. The right posterior tibial artery waveforms are triphasic. The right dorsalis pedis waveforms are triphasic. Indices The right ankle brachial index by the posterior tibial artery is 1.12. The right ankle brachial index by the dorsalis pedis is 1.00. The right digital-brachial index is 0.84. The left ankle brachial index by the posterior tibial artery is 1.11. The left ankle brachial index by the dorsalis pedis is 0.94. The left digital-brachial index is 0.91. VL/Ankle Brachial Index Interpretation Summary Triphasic Doppler waveforms are noted at ankle level bilaterally. Pulse-volume recordings appear satisfactory at ankle and digital level bilaterally. Resting ankle-brachial indices are normal bilate rally. Digital-brachial indices are normal bilaterally. There is no evidence of significant arterial occlusive disease in the lower ext remities bilaterally. Ordering Physician: Carrillo Driscoll Chi Referring Physician: Carrillo Driscoll Chi Performed By: Vicente Chavez, RVT
== END | disposition home or self-care (01) ==
LOC: PSN 08:52
PROVIDERS: PCP Family Medicine Geriatric Medicine; Referring Provider Family Medicine Geriatric Medicine; Visit Provider Family Medicine Geriatric Medicine
DX: R06.02 Shortness of breath (principal); M79.2 Neuralgia and neuritis, unspecified; R20.0 Anesthesia of skin; R29.898 Other symptoms and signs involving the musculoskeletal system
CPT/HCPCS: 93922; 94060

== ENCOUNTER → 2025-05-01 | Outpatient (CLI) | payer MEDICAID, SELFPAY ==
--- NOTE | 2025-05-01 13:55 | ECHOD_ITS ---
Reason For Study Reason For Study: SHORTNESS OF BREATH Procedure This was a 2D Doppler, Color Flow transthoracic echocardiogram. Myocardial strain analysis was performed in this exam to aid in the assessment of cardiac function. Exam performed in department. Left Ventricle Normal LV size. Left ventricular systolic function is normal. The left ventricular ejection fraction is 65 %. Stage 1 diastolic dysfunction. No regional wall motion abnormalities noted. Right Ventricle Normal RV size. Normal systolic function. Atria Normal left atrium. Normal right atrium. Mitral Valve Normal mitral valve. Tricuspid Valve Normal tricuspid valve. Mild (1+) tricuspid valve insufficiency. Pulmonary artery systolic pressure is 34 mmHg. Aortic Valve Trisinus/trileaflet aortic valve. Pulmonic Valve Normal pulmonic valve. Great Vessels Normal aortic root. The pulmonary artery is normal size. Inferior vena cava collapse with respiration. Pericardium/Pleural No pericardial effusion. MMode/2D Measurements & Calculations LVIDd: 4.1 cm IVSd: 0.75 cm Ao root diam: 3.2 cm LVIDs: 2.6 cm LVPWd: 0.76 cm RVDd: 2.7 cm FS: 36.4 % LAV(MOD-bp): 47.8 ml LVAd ap4: 26.6 cm2 LVAd ap2: 24.3 cm2 LAV(MOD-bp) Indexed: 25.2 ml/m2 LVLd ap4: 8.5 cm LVLd ap2: 8.1 cm LAV(MOD-sp2): 49.8 ml EDV(MOD-sp4): 73.5 ml EDV(MOD-sp2): 64.0 ml LAV(MOD-sp4): 42.0 ml EDV(sp4-el): 70.9 ml EDV(sp2-el): 61.6 ml LVAs ap4: 13.3 cm2 LVAs ap2: 12.0 cm2 LVLs ap4: 6.1 cm LVLs ap2: 5.9 cm ESV(MOD-sp4): 25.6 ml ESV(MOD-sp2): 22.3 ml ESV(sp4-el): 24.6 ml ESV(sp2-el): 20.9 ml EF(MOD-sp4): 65.1 % EF(MOD-sp2): 65.1 % EF(sp4-el): 65.2 % SV(MOD-sp4): 47.9 ml SV(MOD-sp2): 41.7 ml SV(sp4-el): 46.2 ml SI(MOD-sp4): 25.3 ml/m2 SI(MOD-sp2): 22.0 ml/m2 LA A4 area: 15.3 cm2 LA dimension(2D): 3.0 cm RA A4 area: 9.7 cm2 TAPSE: 2.1 cm Time Measurements MV dec time: 0.27 sec Doppler Measurements & Calculations MV E max fernando: 38.4 cm/sec Lat Peak E' Fernando: 9.9 cm/sec Med Peak E' Fernando: 9.7 cm/sec MV A max fernando: 47.6 cm/sec E/E' lat: 3.9 E/E' med: 3.9 MV E/A: 0.81 MV V2 max: 54.2 cm/sec MV P1/2t max fernando: 49.3 cm/sec Ao V2 max: 130.5 cm/sec MV max P.2 mmHg MV P1/2t: 55.8 msec Ao max P.8 mmHg MV V2 mean: 31.6 cm/sec Ao V2 mean: 91.1 cm/sec MV mean P.45 mmHg MV dec slope: 258.8 cm/sec2 Ao mean P.6 mmHg MV V2 VTI: 13.7 cm MVA(P1/2t): 3.9 cm2 Ao V2 VTI: 25.2 cm AV (velocity ratio): 0.70 LV V1 max: 92.3 cm/sec PA V2 max: 83.2 cm/sec TR max fernando: 277.6 cm/sec LV V1 max P.4 mmHg PA V2 mean: 62.5 cm/sec TR max P.8 mmHg LV V1 mean P.7 mmHg LV V1 mean: 61.3 cm/sec LV V1 VTI: 17.6 cm ECHO/Echo Complete Interpretation Summary Normal LV size. Left ventricular systolic function is normal. The left ventricular ejection fraction is 65 %. Stage 1 diastolic dysfunction. Mild (1+) tricuspid valve insufficiency. Ordering Physician: Carrillo Driscoll Chi Referring Physician: Carrillo Driscoll Chi Performed By: Sidra Walker, RDCS, RVT
--- OUTSIDE RECORDS SUMMARY | 2025-05-01 19:45 | XMS RPT_ITS | CCD ---
Author Organization [facility] Care Team Providers Care Television News Reporter Name Role Phone Edy Monahan Unavailable Weeks, Karla N Unavailable Weeks, Karla N Unavailable Weeks, Karla N Unavailable Jacinta Weeksica N Unavailable Edy Monahan Unavailable Weeks, Karla N Unavailable [place], Dr. Carrillo Das Primary Care Provider [phone] [place], Dr. Carrillo Das Referring Provider Dr. Silvino Toscano Attending Provider [place], Dr. Carrillo Das Primary Care Provider [place], Dr. Carrillo Das Referring Provider Dr. Silvino Toscano Attending Provider [place], Dr. Carrillo Das Primary Care Provider [place], Dr. Carrillo Das Referring Provider Dr. Silvino Toscano Attending Provider Akshat PIPE WASHER, PIPE WASHER-C Renetta Attending Provider [place], Dr. Carrillo Das Primary Care Provider [phone] [place], Dr. Carrillo Das Referring Provider Dr. Silvino Toscano Attending Provider Akshat PIPE WASHER, PIPE WASHER-C Renetta Attending Provider Akshat PIPE WASHER, PIPE WASHER-C Renetta Referring Provider [place]o NEVAREZ, Dr. Carrillo Das Primary Care Provider [place] , Dr. Carrillo Attending Provider [place], Dr. Carrillo Referring Provider [place]o NEVAREZ, Dr. Carrillo Das Referring Provider Akshat PIPE WASHER-C, Renetta Attending Provider Yasemin NEVAREZ, Dr. Strickland Attending Provider Krys PIPE WASHER-C, Miroslava Attending Provider Krys PIPE WASHER-C, Miroslava Referring Provider Karina NEVAREZ, Dr. Dubois Attending Provider Karina NEVAREZ, Dr. Dubois Referring Provider 1([facility])[phone] Akshat PIPE WASHER-C, Renetta Referring Provider [place]o NEVAREZ, Dr. Carrillo Das Primary Care Provider 1([facility] )[phone] [place] , Dr. Carrillo Attending Provider 1([facility])[phone] Yasemin NEVAREZ, Dr. Strickland Referring Provider Josh NEVAREZ, Dr. Azul Other Provider 1([facility])[phone] [place] NEVAREZ, Dr. Carrillo Das Primary Care Provider 1([facility] )[phone] [place] NEVAREZ, Dr. Carrillo Das Referring Provider 1([facility])[phone] Akshat PIPE WASHER-C, Renetta Attending Provider Yasemin NEVAREZ, Dr. Strickland Attending Provider 1([facility] )[phone] Josh NEVAREZ, Dr. Azul Other Provider 1([facility])[phone] [place] NEVAREZ, Dr. Carrillo Das Attending Provider Josh NEVAREZ, Dr. Azul Attending Provider Josh NEVAREZ, Dr. Azlu Referring Provider Scott TRUONG-CParisa Attending Provider Ilan NEVAREZ, Dr. Hodge Attending Provider Dominic NEVAREZ, Dr. Tillman Attending Provider [place], Dr. Carrillo Attending Provider [place], Dr. Carrillo Referring Provider Dominic NEVAREZ, Dr. Tillman Referring Provider Dominic NEVAREZ, Dr. Tillman Other Provider Yasemin NEVAREZ, Dr. Strickland Other Provider Karina NEVAREZ, Dr. Dubois Attending Provider Karina NEVAREZ, Dr. Dubois Referring Provider Americo NEVAREZ, Dr. Carrillo Das Primary Care Provider [phone] Akshat PIPE WASHER-C, Renetta Attending Provider Akshat PIPE WASHER-C, Renetta Referring Provider [place]o NEVAREZ, Dr. Carrillo Das Referring Provider Yasemin NEVAREZ, Dr. Strickland Attending Provider [facility] [place], Dr. Ellison Emergency Provider [place] NEVAREZ, Dr. Carrillo Das Primary Care Provider Akshat PIPE WASHER-C, Renetta Attending Provider [facility] [place], Dr. Ellison Attending Provider [place], Carrillo Chi Primary Care Unavailable Primo Alfaro Attending Unavailable Primo Alfaro Referring Unavailable [place], Carrillo Chi Primary Care Unavailable Akshat PIPE WASHER, Renetta Referring Unavailable Akshat PIPE WASHER, Renetta Attending Unavailable [place], Carrillo Chi Attending Unavailable [place]o, Carrillo Chi Primary Care Unavailable Americo, Carrillo Chi Referring Unavailable [place]o, Carrillo Chi Primary Care Unavailable Akshat PIPE WASHER, Renetta Referring Unavailable Akshat PIPE WASHER, Renetta Attending Unavailable Americo, Carrillo Chi Primary Care Unavailable Americo, Carrillo Chi Referring Unavailable Em Hazel Attending Unavailable [place], Carrillo Chi Primary Care Unavailable Gerardo Cooley Attending Unavailable Gerardo Cooley Referring Unavailable [place], Carrillo Chi Primary Care Unavailable Americo, Carrillo Chi Referring Unavailable Akshat PIPE WASHER, Renetta Attending Unavailable [place], Carrillo Chi Attending Unavailable [place], Carrillo Chi Primary Care Unavailable Americo, Carrillo Chi Referring Unavailable Josesitousty-Scot Santo Attending Unavailabl e [place], Carrillo Chi Primary Care Unavailable [place], Carrillo Chi Attending Unavailable [place], Carrillo Chi Primary Care Unavailable [place], Carrillo Chi Referring Unavailable Basali, Ayman Referring Unavailable Basali, Ayman Attending Unavailable [place], Carrillo Chi Primary Care Unavailable Basali, Ayman Attending Unavailable Basali, Ayman Referring Unavailable [place]o, Carrillo Chi Primary Care Unavailable [place]o, Carrillo Chi Primary Care Unavailable Miroslava Marcano Referring Unavailable Miroslava Marcano Attending Unavailable PrahSilvino Attending Unavailable [place], Carrillo Chi Primary Care Unavailable Prah Silvino Referring Unavailable [place], Carrillo Chi Attending Unavailable [place]o, Carrillo Chi Primary Care Unavailable Americo, Carrillo Chi Referring Unavailable Basali, Ayman Referring Unavailable Americo, Carrillo Chi Primary Care Unavailable Basali, Ayman Attending Unavailable [place]o, Carrillo Chi Attending Unavailable Americo, Carrillo Chi Primary Care Unavailable Americo, Carrillo Chi Primary Care Unavailable Americo, Carrillo Chi Referring Unavailable Akshat PIPE WASHER, Renetta Attending Unavailable Americo, Carrillo Chi Primary Care Unavailable Americo, Carrillo Chi Referring Unavailable Akshat PIPE WASHER, Renetta Attending Unavailable [place]o, Carrillo Chi Primary Care Unavailable Robotham, Em Referring Unavailable Yasemin Em Attending Unavailable Primo Alfaro Attending Unavailable [place]o, Carrillo Chi Referring Unavailable Americo, Carrillo Chi Primary Care Unavailable Sisradha Primo Attending Unavailable [place]o, Carrillo Chi Referring Unavailable Americo, Carrillo Chi Primary Care Unavailable Akshat PIPE WASHER, Renetta Attending Unavailable Americo, Carrillo Chi Referring Unavailable Americo, Carrillo Chi Primary Care Unavailable Americo, Carrillo Chi Referring Unavailable Akshat PIPE WASHER, Renetta Attending Unavailable Akshat PIPE WASHER, Renetta Attending Unavailable Americo, Carrillo Chi Primary Care Unavailable Americo, Carrillo Chi Referring Unavailable Americo, Carrillo Chi Primary Care Unavailable [place], Carrillo Chi Referring Unavailable RobothamTruongEm Attending Unavailable Akshat PIPE WASHER, Renetta Attending Unavailable [place], Carrillo Chi Primary Care Unavailable Akshat PIPE WASHER, Renetta Referring Unavailable Gerardo Cooley Attending Unavailable Americo, Carrillo Chi Primary Care Unavailable Americo, Carrillo Chi Referring Unavailable Americo, Carrillo Chi Primary Care Unavailable Americo, Carrillo Chi Referring Unavailable Akshat PIPE WASHER, Renetta Attending Unavailable Americo, Carrillo Chi Primary Care Unavailable Gerardo Cooley Attending Unavailable Lenora Gerardo Referring Unavailable Americo, Carrillo Chi Primary Care Unavailable Gerardo Cooley Attending Unavailable Lenora, Gerardo Referring Unavailable Americo, Carrillo Chi Primary Care Unavailable Gerardo Cooley Attending Unavailable Lenora Gerardo Referring Unavailable Americo, Carrillo Chi Primary Care Unavailable Miroslava Marcano Attending Unavailable Americo, Carrillo Chi Referring Unavailable Americo, Carrillo Chi Primary Care Unavailable Gerardo Cooley Attending Unavailable Americo, Carrillo Chi Referring Unavailable Americo, Carrillo Chi Primary Care Unavailable Barry Arrington Attending Unavailable [place]o, Carrillo Chi Referring Unavailable Americo, Carrillo Chi Primary Care Unavailable Gerardo Cooley Attending Unavailable Lenora, Gerardo Referring Unavailable Americo, Carrillo Chi Primary Care Unavailable Gerardo Cooley Attending Unavailable [place], Gerardo Referring Unavailable Edy Mercedes Attending Unavailable [place], Carrillo Chi Primary Care Unavailable Americo, Carrillo Chi Referring Unavailable Americo, Carrillo Chi Primary Care Unavailable SiskaPrimo Attending Unavailable Siska, Primo Consulting Unavailable Siska, Primo Referring Unavailable Americo, Carrillo Chi Primary Care Unavailable Americo, Carrillo Chi Referring Unavailable Em Hazel Attending Unavailable Robotham, Em Consulting Unavailable Americo, Carrillo Chi Primary Care Unavailable Gerardo Cooley Attending Unavailable Lenora, Gerardo Referring Unavailable Lenora, Gerardo Attending Unavailable Lenora, Gerardo Referring Unavailable Americo, Carrillo Chi Primary Care Unavailable Americo, Carrillo Chi Primary Care Unavailable Gerardo Cooley Attending Unavailable Parisa Chavez Attending Unavailable Americo, Carrillo Chi Referring Unavailable Nvaeen Talavera Attending Unavailable [place], Carrillo Chi Primary Care Unavailable SisPrimo garcia Attending Unavailable Americo, Carrillo Chi Referring Unavailable Americo, Carrillo Chi Primary Care Unavailable Americo, Carrillo Chi Referring Unavailable Akshat PIPE WASHER, Renetta Attending Unavailable Jorge Alberto Moreno Consulting Unavailable Americo, Carrillo Chi Primary Care Unavailable Akshat PIPE WASHER, Renetta Referring Unavailable Akshat PIPE WASHER, Renetta Attending Unavailable Americo, Carrillo Chi Attending Unavailable Americo, Carrillo Chi Primary Care Unavailable Americo, Carrillo Chi Referring Unavailable Americo, Carrillo Chi Attending Unavailable Americo, Carrillo Chi Primary Care Unavailable Americo, Carrillo Chi Referring Unavailable Americo, Carrillo Chi Primary Care Unavailable [place], Gerardo Referring Unavailable Gerardo Cooley Attending Unavailable [place]o, Carrillo Chi Primary Care Unavailable Em Hazel Attending Unavailable [place], Carrillo Chi Referring Unavailable Daren NEVAREZ, Dr. Snow Attending Provider Allergies Allergy Classification Reported Allergen(s) Allergy Type Date of Onset Reaction(s) Facility (12 sources) cephalexin drug allergy 09-14-2010 [facility] Work Phone: (20 sources) Cephalexin Drug Allergy 07-16-2022 Rash [facility] (1 source) Cephalexin Drug Allergy 04-18-2025 [facility] Repository Medications Current Medications Medication Drug Class(es) Dates Sig (Normalized) Sig (Original) acetaminophen 325 mg / HYDROcodone bitartrate 5 mg oral tablet (20 sources) Opioid Agonist Start: 05-10-2024 Hydrocodone-Acetam inophen 5-325 mg tablet Active 1 {tbl} PO TWICE A DAY as needed for pain 0 May 10, 2024 12:00am Start: 03-13-2024 End: 03-28-2024 Hydrocodone-Acetaminophen 5- 325 mg tablet Discontinued 1 {tbl} PO EVERY 6 HOURS as needed for pain 10 3 0 March 13, 2024 March 28, 2024 1:02pm Postoperative pain Other acute postprocedural pain Start: 03-09-2017 End: 01-05-2018 Hydrocodone-Acetaminophen 1 TABLET tablet Discontinued 1 - 2 {tbl} PO EVERY 6 HOURS NEEDED as needed for Pain 30 0 March 09, 2017 12:00am January 05, 2018 1:06pm Start: 03-09-2017 End: 01-05-2018 take 1 tablet by mouth every six hours as needed Hydrocodone-Acetaminophen Discontinued 1 - 2 TABLET PO EVERY 6 HOURS NEEDED 30 March 09, 2017 12:00am January 05, 2018 1:06pm Start: 04-02-2013 End: 11-07-2015 VICODIN TABS as needed pain HYDROCODONE-ACETAMINOPHEN TABS [id number] Edy Monahan Start: 04-02-2013 VICODIN TABS a s needed pain HYDROCODONE-ACETAMINOPHEN TABS [id number] Susan Vo MD anastrozole 1 mg oral tablet (16 sources) Aromatase Inhibitor Start: 08-20-2024 take 1 tablet by mouth once daily Anastrozole 1 mg tablet Active 1 mg PO DAILY 90 3 August 20, 2024 1:00am Malignant neoplasm of right breast Malignant neoplasm of upper-outer quadrant of right female breast Estrogen receptor positive status [ER+] 168 hr buprenorphine 0.02 mg/hr transdermal system (20 sources) Partial Opioid Agonist Start: 02-07-2025 apply 20 ug topically every hour Buprenorphine (Butrans) 20 mcg/hour patch weekly Active 1 [facility] TOPICAL GALEANA February 07, 2025 12:00am Start: 12-25-2020 End: 02-07-2025 apply 10 ug topically every week Buprenorphine 10 mcg/ hour patch weekly Discontinued 1 NMA TOPICAL Q7D December 25, 2020 12:00am February 07, 2025 11:15am calcium carbonate 1500 mg oral tablet (15 sources) Start: 12-04-2024 take 1 tablet by mouth once daily Calcium Carbonate 600 mg calcium (1,500 mg) tablet Active 600 mg PO DAILY December 04, 2024 12:00am Help with bone loss Start: 12-04-2024 Calcium Carbon ate 600 mg calcium (1,500 mg) tablet Active mg PO December 04, 2024 12:00am DULoxetine 30 mg delayed release oral capsule (20 sources) Serotonin and Norepinephrine Reuptake Inhibitor Start: 11-07-2015 take 1 capsule by mouth once daily Duloxetine 30 MG capsule Active 30 mg PO DAILY July 19, 2016 1:00am anx meloxicam 7.5 mg oral tablet (20 sources) Nonsteroidal Anti-inflammatory Drug Start: 10-28-2020 take 1 tablet by mouth once daily Meloxicam 7.5 mg tablet Active 7.5 mg PO DAILY October 28, 2020 1:00am Start: 01-18-2020 End: 10-28-2020 take 1 tablet by mouth once daily Meloxicam 15 mg tablet Discontinued 15 mg PO DAILY January 18, 2020 12:00am October 28, 2020 10:07am Check with primary doctor Multivitamin With Folic Acid (6 sources) Start: 07-19-2016 take 1 tablet by mouth once daily Multivitamin With Folic Acid Active 1 TABLET PO DAILY July 19, 2016 12:00am Start: 07-19-2016 take 1 tablet by manuel once daily Multivitamin With Folic Acid Active 1 TABLET PO DAILY July 19, 2016 1:00am Multivitamin With Folic Acid 1 TABLET tablet (16 sources) Start: 07-19-2016 take 1 tablet by mouth once daily Multivitamin With Folic Acid 1 TABLET tablet Active 1 {tbl} PO DAILY July 19, 2016 1:00am Check with primary doctor Start: 07-19-2016 take 1 tablet by manuel th once daily Multivitamin With Folic Acid 1 TABLET tablet Active 1 {tbl} PO DAILY July 19, 2016 1:00am oxyCODONE hydrochloride 5 mg oral tablet (9 sources) Opioid Agonist Start: 02-13-2025 take 1 tablet by mouth every twelve hours as needed for pain Oxycodone 5 mg tablet Active 5 mg PO Q12H as needed for pain 10 5 0 February 13, 2025 Radial styloid tenosynovitis of right hand Radial styloid tenosynovitis [de Quervain] tiZANidine 4 mg oral capsule (20 sources) Central alpha-2 Adrenergic Agonist Start: 01-18-2020 take 1 capsule by mouth at bedtime as needed Tizanidine (Zanaflex) 4 mg capsule Active 4 mg PO AT BEDTIME as needed for Check with primary doctor January 18, 2020 12:00am Start: 01-05-2018 End: 10-26-2019 take 1 capsule by mouth every eight hours Tizanidine (Zanaflex) 4 mg capsule Discontinued 4 mg PO Q8H January 05, 2018 12:00am October 26, 2019 2:17pm Completed/Discontinued Medications Medication Drug Class(es) Dates Sig (Normalized) Sig (Original) acetaminophen 300 mg / codeine phosphate 30 mg oral tablet (20 sources) Opioid Agonist Start: 01-18-2020 End: 06-12-2020 Acetaminophen-Codei ne (Tylenol-Codeine #3) 300-30 mg tablet Discontinued 1 {tbl} PO EVERY 6 HOURS as needed for Pain Or Fever January 18, 2020 12:00am June 12, 2020 1:04pm Start: 01-05-2018 End: 10-26-2019 Acetaminophen-Codeine (Tylen ol-Codeine #3) 300-30 mg tablet Discontinued 1 {tbl} PO EVERY 6 HOURS as needed January 05, 2018 12:00am October 26, 2019 2:17pm acetaminophen 325 mg / oxyCODONE hydrochloride 5 mg oral tablet (20 sources) Opioid Agonist Start: 07-16-2022 End: 10-12-2023 Oxycodone-Acetaminophen 5-32 5 mg tablet Discontinued 1 {tbl} PO EVERY 6 HOURS NEEDED as needed for Pain 12 3 July 16, 2022 October 12, 2023 3:15pm Contusion of back Contusion of unspecified back wall of thorax, initial encounter Start: 07-16-2022 End: 10-12-2023 take 1 tablet by mouth every six hours as needed Oxycodone-Acetaminophen Discontinued 1 TABLET PO EVERY 6 HOURS NEEDED 12 July 16, 2022 October 12, 2023 3:15pm Start: 11-07-2015 PERCOCET 5-325 MG TABS OXYCODONE-ACETAMINOPHEN [id number] Edy Monahan Start: 11-07-2015 PERCOCET 5-325 MG TABS OXYCODONE-ACETAMINOPHEN [id number] Edy Monahan celecoxib 200 mg oral capsule (20 sources) Nonsteroidal Anti-inflammatory Drug Start: 10-26-2021 End: 07-09-2022 take 1 capsule by mouth once daily Celecoxib (Celebrex) 200 mg capsule Discontinued 200 mg PO DAILY 20 October 26, 2021 1:00am July 09, 2022 8:02am Do not take in conjunction with other NSAIDs including meloxicam (Mobic). Tylenol is okay ciprofloxacin 500 mg oral tablet (20 sources) Quinolone Antimicrobial End: 09-27-2011 CIPRO 500 MG TABS Twice daily CIPROFLOXACIN HCL [id number] Abby Pearl citalopram 20 mg oral tablet (20 sources) Serotonin Reuptake Inhibitor End: 04-02-2013 CELEXA 20 MG TABS 1 at bedtime CITALOPRAM HYDROBROMIDE [id number] Joselo Mclean MD cyclobenzaprine hydrochloride 10 mg oral tablet (20 sources) Muscle Relaxant Start: 07-16-2022 End: 10-12-2023 take 1 tablet by mouth three times daily as needed for muscle spasms Cyclobenzaprine 10 mg tablet Discontinued 10 mg PO THREE TIMES A DAY as needed for Muscle Spasm 20 July 16, 2022 12:00am October 12, 2023 3:16pm End: 11-07-2015 take 1 tablet by mouth three times daily FLEXERIL 10 MG TABS One tablet by mouth three times daily CYCLOBENZAPRINE HCL [id number] Susan Vo MD dexamethasone 4 mg oral tablet (16 sources) Corticosteroid Start: 04-11-2024 End: 07-10-2024 take 2 tablets by mouth twice daily Dexamethasone 4 mg tablet Discontinued 8 mg PO .COMPLEX 12 April 11, 2024 12:00am July 10, 2024 10:25am Malignant neoplasm of breast Malignant neoplasm of upper-outer quadrant of right female breast Estrogen receptor positive status [ER+] 8 mg orally twice daily ONLY the day before, the day of, and the day after chemotherapy docusate sodium 100 mg oral capsule (20 sources) Start: 03-09-2017 End: 01-05-2018 take 1 capsule by mouth twice daily as needed for constipation Docusate Sodium 100 MG capsule Discontinued 100 mg PO TWICE DAILY NEEDED as needed for Constipation 10 March 09, 2017 12:00am January 05, 2018 1:06pm doxycycline hyclate 100 mg oral tablet (20 sources) Tetracycline-class Drug End: 08-30-2011 take 1 tablet by mouth twice daily DOXYCYCLINE HYCLATE 100 MG TABS One tablet by mouth twice daily DOXYCYCLINE HYCLATE [id number] Joselo Mclean MD gabapentin 300 mg oral tablet (20 sources) Anti-epileptic Agent End: 11-07-2015 take 1 tablet by mouth three times daily NEURONTIN 300 MG CAPS One tablet by mouth three times daily GABAPENTIN [id number] Edy Duncan Hero End: 11-07-2015 take 1 tablet by mouth three times daily NEURONTIN 300 MG CAPS One tablet by mouth three times daily GABAPENTIN [id number] Susan Vo MD imipramine hydrochloride 25 mg oral tablet (20 sources) Tricyclic Antidepressant End: 08-30-2011 IMIPRAMINE HCL 25 MG TABS 1-2 tabs at bedtime IMIPRAMINE HCL [id number] Joselo Mclean MD End: 04-02-2013 take 1 tablet by mouth at bedtime TOFRANIL 10 MG TABS One tablet by mouth at bedtime. IMIPRAMINE HCL [id number] Susan Vo MD lidocaine 25 mg/ml / prilocaine 25 mg/ml topical cream (16 sources) Antiarrhythmic, Amide Local Anesthetic Start: 04-11-2024 End: 09-10-2024 Lidocaine-Prilocaine 2.5-2.5 % cream Discontinued 1 NMA TOPICAL ONCE as needed for port access April 11, 2024 12:00am September 10, 2024 11:22am Malignant neoplasm of breast Malignant neoplasm of upper-outer quadrant of right female breast Estrogen receptor positive status [ER+] methylPREDNISolone 4 mg oral tablet (20 sources) Corticosteroid Start: 09-09-2020 End: 10-28-2020 take 1 tablet by mouth once Methylprednisolone (Medrol (Jose)) 4 mg tablets,dose pack Discontinued 0 PO per package directions September 09, 2020 1:00am October 28, 2020 10:07am PO PER PKG DIR metroNIDAZOLE 500 mg oral tablet (20 sources) Nitroimidazole Antimicrobial Start: 02-10-2020 End: 12-25-2020 Metronidazole 500 MG tablet Discontinued 500 mg PO ONE TIME February 12, 2020 6:02am December 25, 2020 10:04am Check with primary doctor Take 2 tabs at 13:00, 15:00, 23:00 day before surgery neomycin sulfate 500 mg oral tablet (20 sources) Aminoglycoside Antibacterial Start: 02-10-2020 End: 12-25-2020 Neomycin 500 MG tablet Discontinued 500 mg PO ONE TIME February 12, 2020 6:02am December 25, 2020 10:04am Check with primary doctor Take 2 tabs at 13:00, 15:00, 23:00 day before surgery omega xl (20 sources) Start: 12-25-2020 End: 10-12-2023 omega xl Discontinued PO TWICE A DAY 0 December 25, 2020 12:00am October 12, 2023 3:15pm Start: 12-25-2020 End: 10-12-2023 omega xl Discontinued PO TWI CE A DAY December 25, 2020 12:00am October 12, 2023 3:15pm Start: 12-25-2020 End: 10-12-2023 omega xl Discontinued PO TWI CE A DAY December 24, 2020 11:00pm October 12, 2023 2:15pm Start: 12-25-2020 omega xl Activ e PO TWICE A DAY December 24, 2020 11:00pm Start: 12-25-2020 omega xl Activ e PO TWICE A DAY December 25, 2020 12:00am omeprazole 20 mg delayed release oral capsule (20 sources) Proton Pump Inhibitor Start: 04-11-2024 End: 08-20-2024 take 1 capsule by mouth once daily Omeprazole 20 mg capsule,delayed release(DR/EC) Discontinued 20 mg PO DAILY 11 10May 07, 2024 8:27am August 20, 2024 4:17pm ondansetron 8 mg disintegrating oral tablet (16 sources) Serotonin-3 Receptor Antagonist Start: 04-11-2024 End: 08-20-2024 take 1 tablet by mouth every eight hours as needed for nausea and vomiting Ondansetron 8 mg tablet,disintegrating Discontinued 8 mg PO Q8H as needed for nausea and vomiting 30 April 11, 2024 12:00am August 20, 2024 4:17pm Chemotherapy-induced nausea and vomiting Malignant neoplasm of breast Nausea with vomiting, unspecified Adverse effect of antineoplastic and immunosuppressive drugs, initial encounter Malignant neoplasm of upper-outer quadrant of right female breast Estrogen receptor positive status [ER+] phenazopyridine hydrochloride 200 mg oral tablet (20 sources) End: 09-27-2011 PYRIDIUM 200 MG TABS Three times a day PHENAZOPYRIDINE HCL [id number] Abby Pearl microencapsulated potassium chloride 20 meq extended release oral tablet (16 sources) Start: 04-26-2024 End: 08-20-2024 take 1 tablet by mouth once daily Potassium Chloride 20 mEq tablet,ER particles/crystals Discontinued 20 meq PO DAILY 3 April 26, 2024 12:00am August 20, 2024 4:17pm Hypokalemia Hypokalemia predniSONE 20 mg oral tablet (20 sources) Start: 09-24-2021 End: 07-09-2022 take 1 tablet by mouth twice daily Prednisone 20 mg tablet Discontinued 20 mg PO TWICE A DAY September 24, 2021 1:00am July 09, 2022 8:03am prochlorperazine 10 mg oral tablet (16 sources) Phenothiazine Start: 04-11-2024 End: 08-20-2024 take 1 tablet by mouth every six hours as needed for nausea and vomiting Prochlorperazine Maleate 10 mg tablet Discontinued 10 mg PO EVERY 6 HOURS as needed for nausea and vomiting 30 April 11, 2024 12:00am August 20, 2024 4:17pm Chemotherapy-induced nausea and vomiting Malignant neoplasm of breast Nausea with vomiting, unspecified Adverse effect of antineoplastic and immunosuppressive drugs, initial encounter Malignant neoplasm of upper-outer quadrant of right female breast Estrogen receptor positive status [ER+] progesterone 100 mg oral capsule (20 sources) Progesterone Start: 07-19-2016 End: 01-05-2018 take 1 capsule by mouth at bedtime Progesterone Micronized 100 MG capsule Discontinued 300 mg PO AT BEDTIME July 19, 2016 1:00am January 05, 2018 1:06pm Start: 07-19-2016 End: 01-05-2018 take 300 mg by mouth at bedtime Progesterone Micronize d Discontinued 300 MG PO AT BEDTIME July 19, 2016 1:00am January 05, 2018 1:06pm Start: 04-02-2013 End: 11-07-2015 PROMETRIUM 100 MG CAPS 3 cap s at bedtime PROGESTERONE MICRONIZED [id number] Edy Monahan promethazine hydrochloride 25 mg oral tablet (20 sources) Phenothiazine Start: 03-09-2017 End: 01-05-2018 take 1 tablet by mouth every four hours as needed for nausea Promethazine 25 MG tablet Discontinued 25 mg PO EVERY 4 HOURS NEEDED as needed for Nausea 10 0 March 09, 2017 12:00am January 05, 2018 1:06pm Sod Sulf-Pot Chloride-Mag Sulf (14 sources) Start: 01-02-2025 End: 02-07-2025 take 1.479 tablets by mouth once Sod Sulf-Pot Chloride-Mag Sulf (Sutab) 1.479-0.188- 0.225 gram tablet Discontinued 12 {tbl} PO per package directions 24 0 January 02, 2025 12:00am February 07, 2025 11:14am Take per package directions. Start: 01-02-2025 End: 02-07-2025 take 1.479 tablets by mouth once Sod Sulf-Pot Chloride-Mag Sulf (Sutab) 1.479-0.188- 0.225 gram tablet Discontinued 12 {tbl} PO per package directions January 02, 2025 12:00am February 07, 2025 11:14am Take per package directions. Start: 01-02-2025 take 1.479 tablets b y mouth once Sod Sulf-Pot Chloride-Mag Sulf (Sutab) 1.479-0.188- 0.225 gram tablet Active 12 {tbl} PO per package directions January 02, 2025 12:00am Take per package directions. SULFAMETHOXAZOLE-TRIMETHOPRI M (20 sources) Dihydrofolate Reductase Inhibitor Antibacterial, Sulfonamide Antimicrobial Start: 04-02-2013 End: 11-07-2015 take 1 tablet by mouth twice daily, then take 2 tablets by mouth twice daily BACTRIM DS 800-160 MG TABS one po twice daily for small abscess but if increase, raise dose to 2 po twice daily for 7 d SULFAMETHOXAZOLE-TRIMETHOPRIM [id number] Susan Vo MD Start: 04-02-2013 take 1 tablet by manuel th twice daily, then take 2 tablets by mouth twice daily BACTRIM DS 800-160 MG TABS one po twice daily for small abscess but if increase, raise dose to 2 po twice daily for 7 d SULFAMETHOXAZOLE-TRIMETHOPRIM [id number] Suasn Vo MD Start: 04-02-2013 End: 11-07-2015 take 1 tablet by mouth twice daily, then take 2 tablets by mouth twice daily BACTRIM DS 800-160 MG TABS one po twice daily for small abscess but if increase, raise dose to 2 po twice daily for 7 d SULFAMETHOXAZOLE-TRIMETHOPRIM [id number] Edy Monahan Start: 09-02-2011 End: 09-24-2011 take 1 tablet by mouth twice daily BACTRIM DS TABS one po twice daily for 7 -10 days if symptoms recur SULFAMETHOXAZOLE-TRIMETHOPRIM TABS [id number] Abby Pearl Start: 09-02-2011 take 1 tablet by manuel th twice daily BACTRIM DS TABS one po twice daily for 7 -10 days if symptoms recur SULFAMETHOXAZOLE-TRIMETHOPRIM TABS [id number] Susan Vo MD End: 08-30-2011 BACTRIM TABS 1 tab twice isac ly SULFAMETHOXAZOLE-TRIMETHOPRIM TABS [id number] Joselo Mclean MD End: 08-30-2011 BACTRIM TABS 1 tab twice isac ly SULFAMETHOXAZOLE-TRIMETHOPRIM TABS [id number] Joselo Mclean MD End: 04-02-2013 take 1 tablet by mouth twice daily BACTRIM DS 800-160 MG TABS One tablet by mouth twice daily SULFAMETHOXAZOLE-TRIMETHOPRIM [id number] Susan Vo MD BACTRIM TABS 1 t ab twice daily SULFAMETHOXAZOLE-TRIMETHOPRIM TABS [id number] Joselo Mclean MD take 1 tablet by manuel th twice daily BACTRIM DS 800-160 MG TABS One tablet by mouth twice daily SULFAMETHOXAZOLE-TRIMETHOPRIM [id number] Susan Vo MD CHOLECALCIFEROL (12 sources) Start: 11-07-2015 VITAMIN D 1000 UNIT TABS CHOLECALCIFEROL [id number] Edy Monahan Problems Active Problems Problem Classification Problem Date Documented Da te Episodic/Chronic Cancer of breast (20 sources) Malignant tumor of breast ; Translations: [Malignant neoplasm of unspecified site of right female breast] Onset: 08-08-2024 03-26-2024 Chronic Comment on above: Right breast Lobular carcinoma-clinically stage I (cT1 N0 M0), tumor size 8mm, grade 2, ER >95%, CA >95%, Her2 FISH negative.S/P lumpectomy on 03/13/2024, Pathology showed Invasive Lobular carcinoma, tumor size 7mm, margins negative, grade 2. [place] axillary node 1 negative. She does not want to do Oncotype DX since it will change what she will do.Bone density 02/21/2024 was normal.Discussed R breast cancer stage I, ER positive, Her2 negative disease, adjuvant Radiation therapy, adjuvant hormonal therapy. Pt wants to proceed. Cancer of breast (20 sources) History of malignant neoplasm of breast; Translations: [Personal history of malignant neoplasm of breast] Onset: 02-27-2025 11-19-2024 Episodic Diseases of mouth; excluding dental (16 sources) Inflammatory disease of mucous membrane; Translations: [Oral mucositis (ulcerative), unspecified] 04-26-2024 Episodic Disorders of lipid metabolism (1 source) Hyperlipidemia, unspecified; Translations: [Hyperlipidemia, unspecified] Onset: 04-12-2025 Chronic Endometriosis (20 sources) Endometriosis (clinical); Translations: [Endometriosis, unspecified] 02-12-2020 Chronic Essential hypertension (2 sources) Essential (primary) hypertension; Translations: [Essential (primary) hypertension] Onset: 01-08-2025 Chronic Fluid and electrolyte disorders (17 sources) Hypokalemia; Translations: [Hypokalemia] Onset: 04-12-2025 04-26-2024 Episodic Genitourinary symptoms and ill-defined conditions (17 sources) Urinary incontinence; Translations: [Unspecified urinary incontinence] Onset: 06-28-2024 07-03-2024 Chronic Genitourinary symptoms and ill-defined conditions (16 sources) Dysuria; Translations: [Dysuria] 06-28-2024 Episodic Maintenance chemotherapy; radiotherapy (16 sources) Patient encounter status; Translations: [Encounter for antineoplastic chemotherapy] 05-10-2024 Chronic Nausea and vomiting (16 sources) Chemotherapy-induced nausea and vomiting; Translations: [Nausea with vomiting, unspecified] 04-11-2024 Episodic Nonmalignant breast conditions (20 sources) Mastodynia; Translations: [Pain of right breast] Onset: 05-10-2024 11-19-2024 Episodic Osteoarthritis (8 sources) Osteoarthrosis of the carpometacarpal joint of the thumb; Translations: [Osteoarthritis of first carpometacarpal joint, unspecified] 02-22-2025 Chronic Comment on above: Right thumb Other aftercare (1 source) Encounter for follow-up examination after completed treatment for malignant neoplasm; Translations: [Encounter for follow-up examination after completed treatment for malignant neoplasm] Onset: 02-16-2025 Episodic Other bone disease and musculoskeletal deformities (20 sources) Segmental and somatic dysfunction; Translations: [Segmental and somatic dysfunction of cervical region] 10-28-2020 Episodic Other bone disease and musculoskeletal deformities (16 sources) Other specified disorders of bone, unspecified site; Translations: [Bone pain due to granulocyte colony stimulating factor] 04-26-2024 Episodic Other circulatory disease (18 sources) Elevated blood-pressure reading without diagnosis of hypertension; Translations: [Elevated blood-pressure reading, without diagnosis of hypertension] 09-10-2024 Episodic Other connective tissue disease (20 sources) Tenosynovitis of left radial styloid; Translations: [Radial styloid tenosynovitis [de Quervain]] 09-24-2021 Episodic Other connective tissue disease (20 sources) History of lumbar fusion; Translations: [Arthrodesis status] 10-28-2020 Episodic Comment on above: L4/L5 Other connective tissue disease (8 sources) Radial styloid tenosynovitis [de Quervain]; Translations: [Radial styloid tenosynovitis] Onset: 03-21-2025 Episodic Other connective tissue disease (16 sources) Paraparesis; Translations: [Other symptoms and signs involving the musculoskeletal system] 11-19-2024 Episodic Other connective tissue disease (20 sources) Tenosynovitis of right radial styloid; Translations: [Radial styloid tenosynovitis [de Quervain]] 01-25-2025 Episodic Comment on above: Status post first do rsal compartment release on 13 February 2025 Other connective tissue disease (20 sources) Radial styloid tenosynovitis; Translations: [Radial styloid tenosynovitis [de Quervain]] 01-25-2025 Episodic Other connective tissue disease (1 source) Neuralgia and neuritis, unspecified; Translations: [Neuralgia and neuritis, unspecified] Onset: 04-23-2025 Episodic Other connective tissue disease (2 sources) Other symptoms and signs involving the musculoskeletal system; Translations: [Other symptoms and signs involving the musculoskeletal system] Onset: 01-16-2025 Episodic Other connective tissue disease (1 source) Pain in right foot; Translations: [Pain in right foot] Onset: 04-23-2025 Episodic Other gastrointestinal disorders (16 sources) Diarrhea due to drug; Translations: [Toxic gastroenteritis and colitis] 04-26-2024 Episodic Other injuries and conditions due to external causes (20 sources) Closed injury of head; Translations: [Unspecified injury of head, initial encounter] 07-24-2022 Episodic Other lower respiratory disease (2 sources) Shortness of breath; Translations: [Shortness of breath] Onset: 04-29-2025 Episodic Other nervous system disorders (1 source) Anesthesia of skin; Translations: [Anesthesia of skin] Onset: 04-23-2025 Episodic Other non-traumatic joint disorders (12 sources) Pain in wrist; Translations: [Pain in right wrist] 01-25-2025 Episodic Other screening for suspected conditions (not mental disorders or infectious disease) (20 sources) Patient encounter status; Translations: [Encounter for screening for malignant neoplasm of respiratory organs] Onset: 09-13-2024 11-15-2023 Episodic Ovarian cyst (20 sources) Cyst of ovary; Translations: [Unspecified ovarian cyst, unspecified side] 02-12-2020 Episodic Residual codes; unclassified (20 sources) History of partial resection of colon; Translations: [Acquired absence of other specified parts of digestive tract] 03-03-2020 Episodic Comment on above: Due to circumferenti al appendiceal orifices polyp versus mass, final pathology tubular adenoma Due to circumferenti al appendiceal orifices polyp versus mass, final pathology tubular adenoma in 2019 Residual codes; unclassified (16 sources) Other specified postprocedural states; Translations: [Status post right breast lumpectomy] 03-29-2024 Episodic Comment on above: SN LN- 09/12 neg Residual codes; unclassified (2 sources) Estrogen receptor positive status [ER+]; Translations: [Estrogen receptor positive status [ER+]] Onset: 02-22-2025 Episodic Residual codes; unclassified (1 source) Acquired absence of other specified parts of digestive tract; Translations: [Acquired absence of other specified parts of digestive tract] Onset: 03-06-2025 Episodic Screening and history of mental health and substance abuse codes (20 sources) Tobacco use and exposure - finding; Translations: [Personal history of nicotine dependence] Onset: 01-03-2025 11-15-2023 Episodic Spondylosis; intervertebral disc disorders; other back problems (20 sources) Degeneration of thoracic intervertebral disc; Translations: [Other intervertebral disc degeneration, thoracic region] 10-28-2020 Chronic Spondylosis; intervertebral disc disorders; other back problems (20 sources) Backache; Translations: [Dorsalgia, unspecified] Onset: 01-22-2025 11-17-2020 Episodic Sprains and strains (3 sources) Sprain of right foot; Translations: [Unspecified sprain of right foot, initial encounter] 04-18-2025 Episodic Superficial injury; contusion (20 sources) Contusion of back; Translations: [Contusion of unspecified back wall of thorax, initial encounter] 07-24-2022 Episodic Unclassified (7 sources) Aftercare ; Translations: [Encounter for other orthopedic aftercare] Onset: 03-23-2017 04-06-2017 Unclassified (12 sources) Disruption of wound, unspecified; Translations: [Disruption of wound, unspecified] Onset: 09-22-2011 09-22-2011 Unclassified (20 sources) Weakness of both lower extremities; Translations: [R29.898 - Other symptoms and signs involving the musculoskeletal system] Unclassified (2 sources) Z01.419 - Encounter for gynecological examination (general) (routine) without abnormal findings Unclassified (1 source) Low back pain, unspecified; Translations: [Low back pain, unspecified] Onset: 04-30-2025 Unclassified (1 source) Mammographic fibroglandular density, right breast; Translations: [Mammographic fibroglandular density, right breast] Onset: 12-12-2024 Past or Other Problems Problem Classification Problem Date Documented Da te Episodic/Chronic Administrative/social admission (1 source) Counseling, unspecified; Translations: [Counseling, unspecified] Onset: 08-20-2024 Episodic Bacterial infection; unspecified site (12 sources) Methicillin resistant Staphylococcus aureus infection; Translations: [Methicillin resistant Staphylococcus aureus infection, unspecified site] Onset: 09-14-2010 09-14-2010 Episodic Other circulatory disease (1 source) Elevated blood-pressure reading, without diagnosis of hypertension; Translations: [Elevated blood-pressure reading, without diagnosis of hypertension] Onset: 09-10-2024 Episodic Other connective tissue disease (19 sources) Lateral epicondylitis, left elbow; Translations: [Lateral epicondylitis, right elbow] Onset: 11-07-2015 12-26-2015 Episodic Other connective tissue disease (5 sources) Lateral epicondylitis, right elbow; Translations: [Lateral epicondylitis, right elbow] Onset: 11-07-2015 11-18-2015 Episodic Other gastrointestinal disorders (1 source) Toxic gastroenteritis and colitis; Translations: [Toxic gastroenteritis and colitis] Onset: 06-28-2024 Episodic Other non-traumatic joint disorders (19 sources) Pain in left elbow; Translations: [Pain in elbow] Onset: 11-07-2015 01-14-2016 Episodic Other non-traumatic joint disorders (5 sources) Pain in elbow; Translations: [Pain in right elbow] Onset: 11-07-2015 11-18-2015 Episodic Other non-traumatic joint disorders (1 source) Pain in right wrist; Translations: [Pain in right wrist] Onset: 01-25-2025 Episodic Skin and subcutaneous tissue infections (12 sources) Abscess of groin; Translations: [Cutaneous abscess of groin] Onset: 02-10-2011 02-10-2011 Episodic Unclassified (20 sources) History of Thoracic Fracture 04-01-2022 Unclassified (20 sources) clavicle surgery 04-01-2022 Results Test Name Value Interpretation Reference Range Facility Ankle Brachial Indexon 04-25 Ankle Brachial Index Normal [facility] Arterial study reportOrdered By: Michael Cabello on 04-25-2025 Noninvasive arteriosclerosis study report [facility] [place] [address] Ankle Brachial Index 04/25/25 0933 MR#: [id number] Acct: [id number] Name: FEDE LUIS Rep #:[id number] : 1970 55 From: Michael Cabello MD Attending Dr: Dr. Carrillo Driscoll MD Status: REG CLI Ordering Dr: Carrillo Driscoll MD Date: Location: PSN Sex: F C Admitted: Reason For Study Reason For Study: Weakness / Numbness in legs Procedure A bilateral lower extremity continuous wave Doppler with analog waveform analysis and ankle brachial indexes. Left Segmental Pressures Left brachial= 169mmHg. Left posterior tibial artery = 196mmHg. Left dorsalis pedis artery = 166mmHg. Left digit = 161 mmHg. The left posterior tibial artery waveforms are triphasic. The left dorsalis pedis waveforms are triphasic. Right Segmental Pressures Right brachial= 176mmHg. Right posterior tibial artery = 197mmHg. Right dorsalispedis artery = 176mmHg. Right digit = 148 mmHg. The right posterior tibial artery waveforms are triphasic. The right dorsalis pedis waveforms are triphasic. Indices The right ankle brachial index by the posterior tibial artery is 1.12. The rightankle brachial index by the dorsalis pedis is 1.00. The right digital-brachial index is 0.84. The left ankle brachialindex by the posterior tibial artery is 1.11. The left ankle brachial index by the dorsalis pedis is 0.94. The left digital-brachial index is 0.91. VL/Ankle Brachial Index Interpretation Summary Triphasic Doppler waveforms are noted at ankle level bilaterally. Pulse-volume recordings appear satisfactory at ankle and digital level bilaterally. Resting ankle-brachial indices are normal bilaterally. Digital-brachial indices are normal bilaterally. There is no evidence of significant arterial occlusive disease in the lower extremities bilaterally. Ordering Physician: Carrillo Driscoll Chi Referring Physician: Carrillo Driscoll Chi Performed By: Vicente Chavez, RVT 04/25/252155 Date _ Michael Cabello MD CC: Dr. Carrillo Driscoll MD ~ Date Dictated: 04/25/25932 Date Transcribed: 04/25/252155 Clother In: Signed [facility] Other Electrocardiogram reportOrde red By: Edy Mercedes on 04-24-2025 EKG study [facility] Cardi[facility] Services [address] [place] [address] 12 Lead EKG 04/23/25 1033 MR#: [id number] Acct: [id number] Name: FEDE LUIS Rep #:[id number] : 1970 55 From: Edy tomlinson MD Attending Dr: Dr. Carrillo Driscoll MD Status: REG [facility] Ordering Dr: Carrillo Driscoll MD Date: 09/05 Location: [facility] Sex: F C Admitted: Test Reason : SOB Blood Pressure : */* mmHG Vent. Rate : 79 BPM Atrial Rate : 79 BPM P-R Int : 124 ms QRS Dur : 74 ms QT Int : 370 ms P-R-T Axes : 73 58 57 degrees QTcB Int : 424 ms Normal sinus rhythm Possible Left atrial enlargement Cannot rule out Septal infarct , age undetermined Abnormal ECG Confirmed by Edy Mercedes ([id number]), research editor ALBERTO LINK ([id number]) on 59:34:31 AM Referred By: Carrillo Driscoll Confirmed By: Edy Mercedes 04/24/25933 Date _ Edy Mercedes MD CC: Dr. Carrillo Driscoll MD ~ Signed [facility] Other 12 Lead EKGon 04-23-2025 12 Lead EKG Normal [facility] Ankle min 3 Viewson 04-18-20 25 Ankle min 3 Views Normal [facility] Emergency Department Summary on 04-18-2025 Emergency Department Summary Normal [facility] Foot min 3 Viewson 5 Foot min 3 Views Normal [facility] Protein Electroph, Son 04-15 Albumin [Mass/Vol] 4.0 g/dL Normal 2.9-4.4 [facility] Comment on above: Performed By: #### L 503.0106, L500.4050, L501.9520, L3100.3450, L100.0100 ####[facility] [address] [place], [address] Albumin/Globulin [Mass ratio] 1.3 {ratio} Normal 0.7-1.7 [facility] Comment on above: Performed By: #### L 503.0106, L500.4050, L501.9520, L3100.3450, L100.0100 ####[facility] [address] [place], [address] ALPHA-1 GLOBUL 0.3 g/dL Normal 0.0-0.4 [facility] Comment on above: Performed By: #### L 503.0106, L500.4050, L501.9520, L3100.3450, L100.0100 ####[facility] [address] [place], [address] ALPHA-2 GLOBUL 0.9 g/dL Normal 0.4-1.0 [facility] Comment on above: Performed By: #### L 503.0106, L500.4050, L501.9520, L3100.3450, L100.0100 ####[facility] [address] [place], [address] BETA GLOBULIN 1.2 g/dL Normal 0.7-1.3 [facility] Comment on above: Performed By: #### L 503.0106, L500.4050, L501.9520, L3100.3450, L100.0100 ####[facility] [address] [place], [address] GAMMA GLOBULIN 0.8 g/dL Normal 0.4-1.8 [facility] Comment on above: Performed By: #### L 503.0106, L500.4050, L501.9520, L3100.3450, L100.0100 ####[facility] [address] [place], [address] Globulin (S) [Mass/Vol] 3.2 g/dL Normal 2.2-3.9 [facility] Comment on above: Performed By: #### L 503.0106, L500.4050, L501.9520, L3100.3450, L100.0100 ####[facility] [address] [place], [address] INTERPRETATION Comment Normal . [facility] Comment on above: Result Comment: Prot ein electrophoresis scan will follow via computer,mail, or console operator delivery. Performed By: #### L 503.0106, L500.4050, L501.9520, L3100.3450, L100.0100 ####[facility] [address] [place], [address] M-SPIKE Not Observed Normal Not Observed [facility] Comment on above: Performed By: #### L 503.0106, L500.4050, L501.9520, L3100.3450, L100.0100 ####[facility] [address] [place], [address] NOTE: Comment Normal . [facility] Comment on above: Result Comment: The SPE pattern appears unremarkable. Evidence ofmonoclonal protein is not apparent.Performed at: [address] [id number] Director: Louis Yao PhD, Phone: [phone] Performed By: #### L 503.0106, L500.4050, L501.9520, L3100.3450, L100.0100 ####[facility] [address] [place], [address] Protein [Mass/Vol] 7.2 g/dL Normal 6.0-8.5 [facility] Comment on above: Performed By: #### L 503.0106, L500.4050, L501.9520, L3100.3450, L100.0100 ####[facility] [address] [place], [address] Absolute lymphocyte countOrd ered By: Carrillo Driscoll on 04-12-2025 Lymphocytes Auto (Unsp spec) [#/Vol] 1.92 10*3/uL 0.83-4.51 [facility] Absolute neutrophil countOrd ered By: Carrillo Driscoll on 04-12-2025 Neutrophils (Bld) [#/Vol] 1.9 10*3/uL Low 2.0-7.7 [facility] Albumin Elph [Mass/Vol]Order ed By: Carrillo Driscoll on 04-12-2025 Albumin [Mass/Vol] 4.0 g/dL 2.9-4.4 [facility] Anion gap in Serum or Plasma Ordered By: Carrillo Driscoll on 04-12-2025 Anion gap [Moles/Vol] 12 mmol/L 5-15 [facility] Automated blood erythrocyte countOrdered By: Carrillo Driscoll on 04-12-2025 RBC (Bld) [#/Vol] 4.16 10*6/uL Low 4.2-5.4 [facility] Comment on above: Performed By: #### L 503.0106, L500.4050, L501.9520, L3100.3450, L100.0100 ####[facility] [address] [place], [address] Automated blood hematocrit ( percentage)Ordered By: Carrillo Driscoll on 04-12-2025 Hematocrit (Bld) [Volume fraction] 38.9 % 37-47 [facility] Comment on above: Performed By: #### L 503.0106, L500.4050, L501.9520, L3100.3450, L100.0100 ####[facility] [address] [place], [address] Automated lymphocyte count a s percentage of total leukocytesOrdered By: Carrillo Driscoll on 04-12-2025 Lymphocytes/100 WBC Auto (Unsp spec) 44.5 % High 19-41 [facility] BUN/creatinine ratioOrdered By: Carrillo Driscoll on 04-12-2025 Urea nitrogen/Creatinine [Mass ratio] 34.7 mg/mg High 10-20 [facility] Basophil percentageOrdered B y: Carrillo Driscoll on 04-12-2025 Basophils/100 WBC (Bld) 1.9 % High 0-1 [facility] Comment on above: Performed By: #### L 503.0106, L500.4050, L501.9520, L3100.3450, L100.0100 ####[facility] [address] [place], [address] Bilirubin, totalOrdered By: Carrillo Driscoll on 04-12-2025 Bilirubin [Mass/Vol] 0.15 mg/dL 0.00-1.30 [facility] CBC W/Diff, Automatedon Absolute Lymph 1.92 X10 3/uL Normal 0.83-4.51 [facility] Comment on above: Performed By: #### L 503.0106, L500.4050, L501.9520, L3100.3450, L100.0100 ####[facility] [address] [place], [address] Absolute Neut 1.9 X10 3/uL Low 2.0-7.7 [facility] Comment on above: Performed By: #### L 503.0106, L500.4050, L501.9520, L3100.3450, L100.0100 ####[facility] [address] [place], [address] IG% 0.200 Normal 0.0-0.9 [facility] Comment on above: Result Comment: IG% - Immature Granulocytes (promyelocytes, myelocytes andmetamyelocytes) > 1% indicates that a LEFT SHIFT is Present. Performed By: #### L 503.0106, L500.4050, L501.9520, L3100.3450, L100.0100 ####[facility] [address] [place], [address] Lymphocytes/100 WBC (Bld) 44.5 % High 19-41 [facility] Comment on above: Performed By: #### L 503.0106, L500.4050, L501.9520, L3100.3450, L100.0100 ####[facility] [address] [place], [address] Nucleated RBC (Bld) [#/Vol] 0 10*3/uL Normal 0-5 [facility] Comment on above: Performed By: #### L 503.0106, L500.4050, L501.9520, L3100.3450, L100.0100 ####[facility] [address] [place], [address] RDW SD 42.0 fl Normal 35.1-43.9 [facility] Comment on above: Performed By: #### L 503.0106, L500.4050, L501.9520, L3100.3450, L100.0100 ####[facility] [address] [place], [address] Carbon dioxide, total [Moles /volume] in Central venous bloodOrdered By: Carrillo Driscoll on 04-12-2025 CO2 [Moles/Vol] 25.1 mmol/L 21.0-32.0 [facility] Chloride assayOrdered By: Jeremy Driscoll on 04-12-2025 Chloride [Moles/Vol] 106 mmol/L 98-108 [facility] Comprehensive Metabolic Prof ilon 04-12-2025 Albumin [Mass/Vol] 4.7 g/dL Normal 3.5-5.0 [facility] Comment on above: Performed By: #### L 503.0106, L500.4050, L501.9520, L3100.3450, L100.0100 ####[facility] [address] [place], [address] Albumin/Globulin [Mass ratio] 1.6 {ratio} Normal 0.9-2.4 [facility] Comment on above: Performed By: #### L 503.0106, L500.4050, L501.9520, L3100.3450, L100.0100 ####[facility] [address] [place], [address] ALK PHOS 107 U/L High 35-104 [facility] Comment on above: Performed By: #### L 503.0106, L500.4050, L501.9520, L3100.3450, L100.0100 ####[facility] [address], [address] ALT [Catalytic activity/Vol] 16 U/L Normal <=34 [facility] Comment on above: Performed By: #### L 503.0106, L500.4050, L501.9520, L3100.3450, L100.0100 ####[facility] [address] [place], [address] AST [Catalytic activity/Vol] 24 U/L Normal <=31 [facility] Comment on above: Performed By: #### L 503.0106, L500.4050, L501.9520, L3100.3450, L100.0100 ####[facility] [address] [place], [address] Bilirubin [Mass/Vol] 0.15 mg/dL Normal 0.00-1.30 [facility] Comment on above: Performed By: #### L 503.0106, L500.4050, L501.9520, L3100.3450, L100.0100 ####[facility] [address] [place], [address] BUN/CRE 34.7 RATIO High 10-20 [facility] Comment on above: Performed By: #### L 503.0106, [id number], [id number], L3100.3450, L100.0100 ####[facility] [address] [place], [address] Calcium [Mass/Vol] 9.7 mg/dL Normal 7.6-11.0 [facility] Comment on above: Performed By: #### L 503.0106, L500.4050, [id number], L3100.3450, L100.0100 ####[facility] [address] [place], [address] Chloride [Moles/Vol] 106 mmol/L Normal 98-108 [facility] Comment on above: Performed By: #### L 503.0106, L500.4050, L501.9520, L3100.3450, L100.0100 ####[facility] [address] [place], [address] CO2 [Moles/Vol] 25.1 mmol/L Normal 21.0-32.0 [facility] Comment on above: Performed By: #### L 503.0106, L500.4050, L501.9520, L3100.3450, L100.0100 ####[facility] [address] [place], [address] Creatinine [Mass/Vol] 0.60 mg/dL Low 0.70-1.20 [facility] Comment on above: Performed By: #### L 503.0106, L500.4050, [id number], L3100.3450, L100.0100 ####[facility] [address] [place], [address] GAP 12 Normal 5-15 [facility] Comment on above: Performed By: #### L 503.0106, L500.4050, L501.9520, L3100.3450, L100.0100 ####[facility] [address] [place], [address] GFR/1.73 sq M.predicted among non-blacks MDRD (S/P/Bld) [Vol rate/Area] 105 mL/min/{1.73_m2} Normal >60 [facility] Comment on above: Result Comment: mL/m in/1.73m2 CKD-EPI Creatinine Equation (2020) Performed By: #### L 503.0106, L500.4050, L501.9520, L3100.3450, L100.0100 ####[facility] [address] [place], [address] Globulin (S) [Mass/Vol] 3.0 g/dL Normal 2.2-4.2 [facility] Comment on above: Performed By: #### L 503.0106, L500.4050, L501.9520, L3100.3450, L100.0100 ####[facility] [address] [place], [address] Glucose [Mass/Vol] 89 mg/dL Normal 70-99 [facility] Comment on above: Performed By: #### L 503.0106, L500.4050, L501.9520, L3100.3450, L100.0100 ####[facility] [address] [place], [address] Potassium [Moles/Vol] 4.6 mmol/L Normal 3.3-5.1 [facility] Comment on above: Performed By: #### L 503.0106, L500.4050, L501.9520, L3100.3450, L100.0100 ####[facility] [address] [place], [address] Sodium [Moles/Vol] 143 mmol/L Normal 133-145 [facility] Comment on above: Performed By: #### L 503.0106, L500.4050, L501.9520, L3100.3450, L100.0100 ####[facility] [address] [place], [address] T PROT 7.7 g/dL Normal 5.9-8.4 [facility] Comment on above: Performed By: #### L 503.0106, L500.4050, L501.9520, L3100.3450, L100.0100 ####[facility] [address] [place], [address] Urea nitrogen [Mass/Vol] 21 mg/dL High 4-19 [facility] Comment on above: Performed By: #### L 503.0106, L500.4050, L501.9520, L3100.3450, L100.0100 ####[facility] [address] [place], [address] Eosinophil percentageOrdered By: Carrillo Driscoll on 04-12-2025 Eosinophils/100 WBC (Bld) 1.2 % 0-5 [facility] Comment on above: Performed By: #### L 503.0106, L500.4050, L501.9520, L3100.3450, L100.0100 ####[facility] [address] [place], [address] Erythrocyte distribution wid th ratioOrdered By: Carrillo Driscoll on 04-12-2025 Erythrocyte distribution width (RBC) [Ratio] 12.1 % 11.6-14.6 [facility] Comment on above: Performed By: #### L 503.0106, L500.4050, L501.9520, L3100.3450, L100.0100 ####[facility] [address] [place], [address] Erythrocyte distribution wid th standard deviationOrdered By: Carrillo Driscoll on 04-12-2025 Erythrocyte distribution width (RBC) [Ratio] 42.0 fl 35.1-43.9 [facility] Glomerular filtration rate ( GFR) estimation/1.73 sq m using serum, plasma, or whole bOrdered By: Carrillo Driscoll on 04-12-2025 GFR/1.73 sq M.predicted among non-blacks MDRD (S/P/Bld) [Vol rate/Area] 105 mL/min/{1.73_m2} >60 [facility] Comment on above: mL/min/1.73m2 CKD-EP I Creatinine Equation (2020) Hemoglobin measurementOrdere d By: Carrillo Driscoll on 04-12-2025 Hemoglobin (Bld) [Mass/Vol] 13.3 g/dL 12.0-15.0 [facility] Comment on above: Performed By: #### L 503.0106, L500.4050, L501.9520, L3100.3450, L100.0100 ####[facility] [address] [place], [place], [id number] Immature granulocytes/100 WB C Auto (Bld)Ordered By: Carrillo Driscoll on 04-12-2025 Immature granulocytes/100 WBC (Bld) 0.200 % 0.0-0.9 [facility] Comment on above: IG% - Immature Granu locytes (promyelocytes, myelocytes and metamyelocytes) > 1% indicates that a LEFT SHIFT is Present. Laboratory - Chemistry and C hemistry - challengeOrdered By: Carrillo Driscoll on 04-12-2025 AST [Catalytic activity/Vol] 24 U/L <32 [facility] MCV (mean corpuscular volume ) determinationOrdered By: Carrillo Americo on 04-12-2025 MCV (RBC) [Entitic vol] 93.5 fL 81-99 [facility] Comment on above: Performed By: #### L 503.0106, L500.4050, L501.9520, L3100.3450, L100.0100 ####[facility] [address] [place], [address] Mean corpuscular hemoglobin (MCH) determinationOrdered By: Carrillo Driscoll on 04-12-2025 MCH (RBC) [Entitic mass] 32.0 pg 27.0-32.0 [facility] Comment on above: Performed By: #### L 503.0106, L500.4050, L501.9520, L3100.3450, L100.0100 ####[facility] [address] [place], [place], [id number] Mean corpuscular hemoglobin concentration (MCHC) determinationOrdered By: Carrillo Americo on 04-12-2025 MCHC (RBC) [Mass/Vol] 34.2 g/dL 32-36 [facility] Comment on above: Performed By: #### L 503.0106, L500.4050, L501.9520, L3100.3450, L100.0100 ####[facility] [address] [place], [place], [id number] Mean platelet volume determi nationOrdered By: Carrillo Americo on 04-12-2025 Platelet mean volume (Bld) [Entitic vol] 9.5 fL 6.2-12.0 [facility] Comment on above: Performed By: #### L 503.0106, L500.4050, L501.9520, L3100.3450, L100.0100 ####[facility] [address] [place], [place], [address] Monocyte percentageOrdered B y: Carrillo Americo on 04-12-2025 Monocytes/100 WBC (Bld) 7.9 % 0-10 [facility] Comment on above: Performed By: #### L 503.0106, L500.4050, L501.9520, L3100.3450, L100.0100 ####[facility] [address] [place], [place], [id number] Neutrophil percentageOrdered By: Carrillo Driscoll on 04-12-2025 Neutrophils/100 WBC (Bld) 44.3 % Low 47-70 [facility] Comment on above: Performed By: #### L 503.0106, L500.4050, L501.9520, L3100.3450, L100.0100 ####[facility] [address] [place], [place], [phone] No Panel InformationOrdered By: Carrillo Driscoll on 04-12-2025 Addendum Document Comment . [facility] Comment on above: The SPE pattern appe ars unremarkable. Evidence ofmonoclonal protein is not apparent.Performed at: [facility] [id number] Director: Louis Yao PhD, Phone: [phone] Nucleated red blood cell per centageOrdered By: Carrillo Driscoll on 04-12-2025 Nucleated RBC/100 WBC (Bld) [Ratio] 0 % 0-5 [facility] Platelet countOrdered By: Jeremy Driscoll on 04-12-2025 Platelets (Bld) [#/Vol] 380 10*3/uL 150-450 [facility] Comment on above: Performed By: #### L 503.0106, L500.4050, L501.9520, L3100.3450, L100.0100 ####[facility] [address] [place], [place], [id number] Potassium measurement (mass/ volume)Ordered By: Carrillo Driscoll on 04-12-2025 Potassium (Unsp spec) [Mass/Vol] 4.6 mmol/L 3.3-5.1 [facility] Protein Fractions Elph [Inte rp]Ordered By: Carrillo Driscoll on 04-12-2025 Protein Fractions [Interp] Comment . [facility] Comment on above: Protein electrophore sis scan will follow via computer,mail, or console operator delivery. Serum albumin to globulin ra stephanie by protein electrophoresisOrdered By: Carrillo Driscoll on 04-12-2025 Albumin/Globulin Elph [Mass ratio] 1.3 0.7-1.7 [facility] Serum creatinine measurement (mass/volume)Ordered By: Carrillo Driscoll on 04-12-2025 Creatinine [Mass/Vol] 0.60 mg/dL Low 0.70-1.20 [facility] Serum globulin measurementOr dered By: Carrillo Driscoll on 04-12-2025 Globulin (S) [Mass/Vol] 3.0 g/dL 2.2-4.2 [facility] Serum globulin measurement ( mass/volume)Ordered By: Carrillo Driscoll 04-12-2025 Globulin (S) [Mass/Vol] 3.2 g/dL 2.2-3.9 [facility] Serum glucose measurement (m ass/volume)Ordered By: Carrillo Driscoll on 04-12-2025 Glucose [Mass/Vol] 89 mg/dL 70-99 [facility] Serum or plasma alanine ho otransferase (ALT) measurementOrdered By: Carrillo Driscoll 04-12-2025 ALT [Catalytic activity/Vol] 16 U/L <35 [facility] Serum or plasma albumin royal urement (mass/volume)Ordered By: Carrillo Driscoll 04-12-2025 Albumin [Mass/Vol] 4.7 g/dL 3.5-5.0 [facility] Serum or plasma albumin/glob ulin mass ratioOrdered By: Carrillo Driscoll 04-12-2025 Albumin/Globulin [Mass ratio] 1.6 {ratio} 0.9-2.4 [facility] Serum or plasma alkaline ida sphatase measurementOrdered By: Carrillo Driscoll 04-12-2025 ALP [Catalytic activity/Vol] 107 U/L High 35-104 [facility] Serum or plasma beta globuli n measurement by electrophoresis (mass/volume)Ordered By: Carrillo Driscoll 04-12-2025 Beta globulin Elph [Mass/Vol] 1.2 g/dL 0.7-1.3 [facility] Serum or plasma calcium royal urement (mass/volume)Ordered By: Carrillo Driscoll 04-12-2025 Calcium [Mass/Vol] 9.7 mg/dL 7.6-11.0 [facility] Serum or plasma protein royal urement (mass/volume)Ordered By: Carrillo Driscoll 04-12-2025 Protein [Mass/Vol] 7.2 g/dL 6.0-8.5 [facility] Serum or plasma protein mono clonal measurement by electrophoresis (mass/volume)Ordered By: Carrillo Driscoll 04-12-2025 Protein.monoclonal Elph [Mass/Vol] Not Observed g/dL Not Observed [facility] Serum or plasma urea nitroge n measurement (mass/volume)Ordered By: Carrillo Driscoll on 04-12-2025 Urea nitrogen [Mass/Vol] 21 mg/dL High 4-19 [facility] Sodium levelOrdered By: Carrillo Driscoll on 04-12-2025 Sodium [Moles/Vol] 143 mmol/L 133-145 [facility] TSH DL <= 0.005 mIU/L QnOrde red By: Carrillo Driscoll on 04-12-2025 TSH Qn 1.040 uIU/mL 0.300-4.200 [facility] Thyroid Stim Hormone (TSH)on 04-12-2025 TSH 1.040 uIU/mL Normal 0.300-4.200 [facility] Comment on above: Performed By: #### L 503.0106, L500.4050, L501.9520, L3100.3450, L100.0100 ####[facility] [address] [place], [place], [id number] Total proteinOrdered By: Carrillo Driscoll on 04-12-2025 Protein [Mass/Vol] 7.7 g/dL 5.9-8.4 [facility] Vitamin B12on 04-12-2025 Cobalamin (Vitamin B12) [Mass/Vol] 436 pg/mL Normal 180-914 [facility] Comment on above: Performed By: #### L 503.0106, L500.4050, L501.9520, L3100.3450, L100.0100 ####[facility] [address] [place], [place], [address] Vitamin B12 ser/plasOrdered By: Carrillo Driscoll on 04-12-2025 Cobalamin (Vitamin B12) [Mass/Vol] 436 pg/mL 180-914 [facility] White blood cell (WBC) count Ordered By: Carrillo Driscoll on 04-12-2025 WBC (Bld) [#/Vol] 4.3 10*3/uL Low 4.4-11.0 [facility] Comment on above: Performed By: #### L 503.0106, L500.4050, L501.9520, L3100.3450, L100.0100 ####[facility] [address] [place], [address] Absolute lymphocyte countOrd ered By: Silvino Karina on 02-27-2025 Lymphocytes Auto (Unsp spec) [#/Vol] 1.92 10*3/uL 0.83-4.51 [facility] Absolute neutrophil countOrd ered By: [facility] on 02-27-2025 Neutrophils (Bld) [#/Vol] 3.3 10*3/uL 2.0-7.7 [facility] Anion gap in Serum or Plasma [facility]: [facility] 02-27-2025 Anion gap [Moles/Vol] 12 mmol/L 5-15 [facility] Automated lymphocyte count a s percentage of total leukocytesOrdered By: [facility] on 02-27-2025 Lymphocytes/100 WBC Auto (Unsp spec) 33.3 % 19-41 [facility] BUN/creatinine ratioOrdered By: [facility] on 02-27-2025 Urea nitrogen/Creatinine [Mass ratio] 35.8 mg/mg High 10-20 [facility] Basophil percentageOrdered B y: Silvino [facility] 02-27-2025 Basophils/100 WBC (Bld) 1.2 % High 0-1 [facility] Bilirubin, totalOrdered By: [facility] on 02-27-2025 Bilirubin [Mass/Vol] 0.29 mg/dL 0.00-1.30 [facility] CBC W/Diff, Automatedon 02-10 Absolute Lymph 1.92 X10 3/uL Normal 0.83-4.51 [facility] Comment on above: Performed By: #### L 100.0100, L500.4050 ####[facility] [address] [place], [address] Absolute Neut 3.3 X10 3/uL Normal 2.0-7.7 [facility] Comment on above: Performed By: #### L 100.0100, L500.4050 ####[facility] [address] [place], [address] Basophils/100 WBC (Bld) 1.2 % High 0-1 [facility] Comment on above: Performed By: #### L 100.0100, L500.4050 ####[facility] [address] [place], [address] Eosinophils/100 WBC (Bld) 0.5 % Normal 0-5 [facility] Comment on above: Performed By: #### L 100.0100, L500.4050 ####[facility] [address] [place], [address] Erythrocyte distribution width (RBC) [Ratio] 11.9 % Normal 11.6-14.6 [facility] Comment on above: Performed By: #### L 100.0100, L500.4050 ####[facility] [address] [place], [address] Hematocrit (Bld) [Volume fraction] 34.3 % Low 37-47 [facility] Comment on above: Performed By: #### L 100.0100, L500.4050 ####[facility] [address] [place], [address] Hemoglobin (Bld) [Mass/Vol] 11.8 g/dL Low 12.0-15.0 [facility] Comment on above: Performed By: #### L 100.0100, L500.4050 ####[facility] [address] [place], [address] IG% 0.200 Normal 0.0-0.9 [facility] Comment on above: Result Comment: IG% - Immature Granulocytes (promyelocytes, myelocytes andmetamyelocytes) > 1% indicates that a LEFT SHIFT is Present. Performed By: #### L 100.0100, L500.4050 ####[facility] [address] [place], [address] Lymphocytes/100 WBC (Bld) 33.3 % Normal 19-41 [facility] Comment on above: Performed By: #### L 100.0100, L500.4050 ####[facility] [address] [place], [address] MCH (RBC) [Entitic mass] 31.6 pg Normal 27.0-32.0 [facility] Comment on above: Performed By: #### L 100.0100, L500.4050 ####[facility] [address] [place], [address] MCHC (RBC) [Mass/Vol] 34.4 g/dL Normal 32-36 [facility] Comment on above: Performed By: #### L 100.0100, L500.4050 ####[facility] [address] [place], [address] MCV (RBC) [Entitic vol] 92.0 fL Normal 81-99 [facility] Comment on above: Performed By: #### L 100.0100, L500.4050 ####[facility] [address] [place], [address] Monocytes/100 WBC (Bld) 7.8 % Normal 0-10 [facility] Comment on above: Performed By: #### L 100.0100, L500.4050 ####[facility] [address] [place], [address] Neutrophils/100 WBC (Bld) 57.0 % Normal 47-70 [facility] Comment on above: Performed By: #### L 100.0100, L500.4050 ####[facility] [address] [place], [address] Nucleated RBC (Bld) [#/Vol] 0 10*3/uL Normal 0-5 [facility] Comment on above: Performed By: #### L 100.0100, L500.4050 ####[facility] [address] [place], [address] Platelet mean volume (Bld) [Entitic vol] 9.4 fL Normal 6.2-12.0 [facility] Comment on above: Performed By: #### L 100.0100, L500.4050 ####[facility] [address] [place], [address] Platelets (Bld) [#/Vol] 329 10*3/uL Normal 150-450 [facility] Comment on above: Performed By: #### L 100.0100, L500.4050 ####[facility] [address] [place], [address] RBC (Bld) [#/Vol] 3.73 10*6/uL Low 4.2-5.4 [facility] Comment on above: Performed By: #### L 100.0100, L500.4050 ####[facility] [address] [place], [address] RDW SD 39.8 fl Normal 35.1-43.9 [facility] Comment on above: Performed By: #### L 100.0100, L500.4050 ####[facility] [address] [place], [address] WBC (Bld) [#/Vol] 5.8 10*3/uL Normal 4.4-11.0 [facility] Comment on above: Performed By: #### L 100.0100, L500.4050 ####[facility] [address] [place], [address] Carbon dioxide, total [Moles /volume] in Central venous bloodOrdered By: Silvino Collins on 02-27-2025 CO2 [Moles/Vol] 23.3 mmol/L 21.0-32.0 [facility] Chloride assayOrdered By: Nilam Collins on 02-27-2025 Chloride [Moles/Vol] 104 mmol/L 98-108 [facility] Comprehensive Metabolic Prof ilon 02-27-2025 Albumin [Mass/Vol] 4.7 g/dL Normal 3.5-5.0 [facility] Comment on above: Performed By: #### L 100.0100, L500.4050 ####[facility] [address] [place], [address] Albumin/Globulin [Mass ratio] 1.8 {ratio} Normal 0.9-2.4 [facility] Comment on above: Performed By: #### L 100.0100, L500.4050 ####[facility] [address] [place], [address] ALK PHOS 92 U/L Normal 35-104 [facility] Comment on above: Performed By: #### L 100.0100, L500.4050 ####[facility] [address] [place], [address] ALT [Catalytic activity/Vol] 16 U/L Normal <=34 [facility] Comment on above: Performed By: #### L 100.0100, L500.4050 ####[facility] [address] [place], [address] AST [Catalytic activity/Vol] 26 U/L Normal <=31 [facility] Comment on above: Performed By: #### L 100.0100, L500.4050 ####[facility] [address] [place], [address] Bilirubin [Mass/Vol] 0.29 mg/dL Normal 0.00-1.30 [facility] Comment on above: Performed By: #### L 100.0100, L500.4050 ####[facility] [address] [place], [address] BUN/CRE 35.8 RATIO High 10-20 [facility] Comment on above: Performed By: #### L 100.0100, L500.4050 ####[facility] [address] [place], [address] Calcium [Mass/Vol] 9.6 mg/dL Normal 7.6-11.0 [facility] Comment on above: Performed By: #### L 100.0100, L500.4050 ####[facility] [address] [place], [address] Chloride [Moles/Vol] 104 mmol/L Normal 98-108 [facility] Comment on above: Performed By: #### L 100.0100, L500.4050 ####[facility] [address] [place], [address] CO2 [Moles/Vol] 23.3 mmol/L Normal 21.0-32.0 [facility] Comment on above: Performed By: #### L 100.0100, L500.4050 ####[facility] [address] [place], [address] Creatinine [Mass/Vol] 0.59 mg/dL Low 0.70-1.20 [facility] Comment on above: Performed By: #### L 100.0100, L500.4050 ####[facility] [address] [place], [address] ECRCL 107.40 ml/min Normal 50-250 [facility] Comment on above: Performed By: #### L 100.0100, L500.4050 ####[facility] [address] [place], [address] GAP 12 Normal 5-15 [facility] Comment on above: Performed By: #### L 100.0100, L500.4050 ####[facility] [address] [place], [address] GFR/1.73 sq M.predicted among non-blacks MDRD (S/P/Bld) [Vol rate/Area] 106 mL/min/{1.73_m2} Normal >60 [facility] Comment on above: Result Comment: mL/m in/1.73m2 CKD-EPI Creatinine Equation (2020) Performed By: #### L 100.0100, L500.4050 ####[facility] [address] [place], [address] Globulin (S) [Mass/Vol] 2.6 g/dL Normal 2.2-4.2 [facility] Comment on above: Performed By: #### L 100.0100, L500.4050 ####[facility] [address] [place], [address] Glucose [Mass/Vol] 104 mg/dL High 70-99 [facility] Comment on above: Performed By: #### L 100.0100, L500.4050 ####[facility] [address] [place], [address] Potassium [Moles/Vol] 3.9 mmol/L Normal 3.3-5.1 [facility] Comment on above: Performed By: #### L 100.0100, L500.4050 ####[facility] [address] [place], [address] Sodium [Moles/Vol] 139 mmol/L Normal 133-145 [facility] Comment on above: Performed By: #### L 100.0100, L500.4050 ####[facility] [address] [place], [address] T PROT 7.3 g/dL Normal 5.9-8.4 [facility] Comment on above: Performed By: #### L 100.0100, L500.4050 ####[facility] [address] [place], [address] Urea nitrogen [Mass/Vol] 21 mg/dL High 4-19 [facility] Comment on above: Performed By: #### L 100.0100, L500.4050 ####[facility] [address] [place], [address] Eosinophil percentageOrdered By: Silvino Collins on 02-27-2025 Eosinophils/100 WBC (Bld) 0.5 % 0-5 [facility] Erythrocyte distribution wid th ratioOrdered By: Silvino Collins on 02-27-2025 Erythrocyte distribution width (RBC) [Ratio] 11.9 % 11.6-14.6 [facility] Erythrocyte distribution wid th standard deviationOrdered By: Silvino [facility] on 02-27-2025 Erythrocyte distribution width (RBC) [Ratio] 39.8 fl 35.1-43.9 [facility] Glomerular filtration rate ( GFR) estimation/1.73 sq m using serum, plasma, or whole bOrdered By: Silvino Collins on 02-27-2025 GFR/1.73 sq M.predicted among non-blacks MDRD (S/P/Bld) [Vol rate/Area] 106 mL/min/{1.73_m2} >60 [facility] Comment on above: mL/min/1.73m2 CKD-EP I Creatinine Equation (2020) Hematocrit Auto (Bld) [Volum e fraction]Ordered By: Silvino Collins on 02-27-2025 Hematocrit (Bld) [Volume fraction] 34.3 % Low 37-47 [facility] Hemoglobin measurementOrdere d By: Silvino Collins on 02-27-2025 Hemoglobin (Bld) [Mass/Vol] 11.8 g/dL Low 12.0-15.0 [facility] Immature granulocytes/100 WB C Auto (Bld)Ordered By: Silvino Collins on 02-27-2025 Immature granulocytes/100 WBC (Bld) 0.200 % 0.0-0.9 [facility] Comment on above: IG% - Immature Granu locytes (promyelocytes, myelocytes and metamyelocytes) > 1% indicates that a LEFT SHIFT is Present. Laboratory - Chemistry and C hemistry - challengeOrdered By: Silvino Collins on 02-27-2025 AST [Catalytic activity/Vol] 26 U/L <32 [facility] MCV (mean corpuscular volume ) determinationOrdered By: Silvino Collins on 02-27-2025 MCV (RBC) [Entitic vol] 92.0 fL 81-99 [facility] Mean corpuscular hemoglobin (MCH) determinationOrdered By: Silvino Collins on 02-27-2025 MCH (RBC) [Entitic mass] 31.6 pg 27.0-32.0 [facility] Mean corpuscular hemoglobin concentration (MCHC) determinationOrdered By: Silvino Collins on 02-27-2025 MCHC (RBC) [Mass/Vol] 34.4 g/dL 32-36 [facility] Mean platelet volume determi nationOrdered By: Silvino Collins on 02-27-2025 Platelet mean volume (Bld) [Entitic vol] 9.4 fL 6.2-12.0 [facility] Monocyte percentageOrdered B y: Silvino Collins on 02-27-2025 Monocytes/100 WBC (Bld) 7.8 % 0-10 [facility] Neutrophil percentageOrdered By: Silvino Collins on 02-27-2025 Neutrophils/100 WBC (Bld) 57.0 % 47-70 [facility] Nucleated red blood cell per centageOrdered By: Silvino Collins on 02-27-2025 Nucleated RBC/100 WBC (Bld) [Ratio] 0 % 0-5 [facility] Oncology Visit Reporton 02-10 Oncology Visit Report Normal [facility] Platelet countOrdered By: Nilam Collins on 02-27-2025 Platelets (Bld) [#/Vol] 329 10*3/uL 150-450 [facility] Potassium measurement (mass/ volume)Ordered By: Silvino Collins on 02-27-2025 Potassium (Unsp spec) [Mass/Vol] 3.9 mmol/L 3.3-5.1 [facility] RBC Auto (Bld) [#/Vol]Ordere d By: Silvino Collins on 02-27-2025 RBC (Bld) [#/Vol] 3.73 10*6/uL Low 4.2-5.4 [facility] Serum creatinine measurement (mass/volume)Ordered By: Silvino Collins on 02-27-2025 Creatinine [Mass/Vol] 0.59 mg/dL Low 0.70-1.20 [facility] Serum globulin measurementOr dered By: Silvino Collins on 02-27-2025 Globulin (S) [Mass/Vol] 2.6 g/dL 2.2-4.2 [facility] Serum glucose measurement (m ass/volume)Ordered By: Silvino Collins on 02-27-2025 Glucose [Mass/Vol] 104 mg/dL High 70-99 [facility] Serum or plasma alanine ho otransferase (ALT) measurementOrdered By: Silvino Collins on 02-27-2025 ALT [Catalytic activity/Vol] 16 U/L <35 [facility] Serum or plasma albumin royal urement (mass/volume)Ordered By: Silvino Collins on 02-27-2025 Albumin [Mass/Vol] 4.7 g/dL 3.5-5.0 [facility] Serum or plasma albumin/glob ulin mass ratioOrdered By: Silvino Collins on 02-27-2025 Albumin/Globulin [Mass ratio] 1.8 {ratio} 0.9-2.4 [facility] Serum or plasma alkaline ida sphatase measurementOrdered By: Silvino Collins on 02-27-2025 ALP [Catalytic activity/Vol] 92 U/L 35-104 [facility] Serum or plasma calcium royal urement (mass/volume)Ordered By: Silvino Collins on 02-27-2025 Calcium [Mass/Vol] 9.6 mg/dL 7.6-11.0 [facility] Serum or plasma urea nitroge n measurement (mass/volume)Ordered By: Silvino Collins on 02-27-2025 Urea nitrogen [Mass/Vol] 21 mg/dL High 4-19 [facility] Sodium levelOrdered By: Thom Collins on 02-27-2025 Sodium [Moles/Vol] 139 mmol/L 133-145 [facility] Total proteinOrdered By: Davon Collins on 02-27-2025 Protein [Mass/Vol] 7.3 g/dL 5.9-8.4 [facility] White blood cell (WBC) count Ordered By: Silvino Collins on 02-27-2025 WBC (Bld) [#/Vol] 5.8 10*3/uL 4.4-11.0 [facility] Inital Evaluation (1) - PTon 02-26-2025 Inital Evaluation (1) - PT Normal [facility] Plastic Surgery Visit Report on 02-22-2025 Plastic Surgery Visit Report Normal [facility] Colonoscopy Reporton 025 Colonoscopy Report Normal [facility] MR/POSTOP.ANEon 02-20-2025 MR/POSTOP.ANE Normal [facility] MR/[id number] 02-20-2025 MR/POSTOPAN2 Normal [facility] Plastic Surgery Visit Report on 02-15-2025 Plastic Surgery Visit Report Normal [facility] H AND P Exam - Surgicalon H&P Exam - Surgical Normal [facility] MR/POSTOP.ANEon 02-13-2025 MR/POSTOP.ANE Normal [facility] MR/[id number] 02-13-2025 MR/POSTOPAN2 Normal [facility] Operative Reporton Operative Report Normal [facility] Breast imaging reportOrdered By: Pinky Ramires on 02-11-2025 Study report [facility] Imaging Services [address] [place] [address] DIAG MAMM W/CAD, BILAT MR#: [id number] Acct: [id number] Name: FEDE LUIS Rep #: [id number] : 1970 F 54 From: Alfonso Ramires DO PCP: Dr. Carrillo Driscoll MD Status: [facility] Ramiro DELEON Study:DIAG MAMM W/CAD, BILAT Date of Exam: 02/11/25 Exam# [id number] Ordering Dr: Gerardo Cooley DO EXAM: DIAG MAMM W/CAD, BILAT N/A CLINICAL HISTORY: F, Age 54 y/o , FOLLOW UP TREATED BREAST CANCER TECHNIQUE: Bilateral Diagnostic digital breast tomosynthesis with 2D and 3D images. Computer aided detection. COMPARISON: Prior exam(s) dated 11/23/2024, 01/06/2024, and 01/03/2024 . FINDINGS: TISSUE DENSITY: The breast tissue is composed of scattered area of fibroglandular density. Bilateral Breast Mammographic Findings: Architectural distortion, increased density and surgical clips are seen in the superior outer aspect of the right breast at the post lumpectomy site. This area appears stable. A few benign-appearing round microcalcifications are seen in the breast. There is no mammographic abnormality seen to suggest new or recurrent malignancy however, a short-term follow-up mammogram is recommended to document stability of the architectural distortion and density. No suspicious masses, suspicious cluster of microcalcifications, architectural distortion or secondary sign of malignancy is identified in the left breast. BI/DIAG MAMM W/CAD, BILAT IMPRESSION: OVERALL FINAL ASSESSMENT: BIRADS 3 PROBABLY BENIGN. RECOMMENDATION: Short interval follow-up. A letter with findings and recommendations will be mailed to the patient. Reading Location: [id number] CC: Dr. Gerardo Cooley DO; Dr. Carrillo Driscoll MD ~ [place] In: Signed [facility] DIAG MAMM W/CAD, BILATon DIAG MAMM W/CAD, BILAT Normal [facility] Plastic Surgery Visit Report on 02-05-2025 Plastic Surgery Visit Report Normal [facility] Orthopedic Visit Reporton Orthopedic Visit Report Normal [facility] Wrist min 3 Viewson 01-26-20 25 Wrist min 3 Views Normal [facility] Cerv Spine 2 or 3 Viewson Cerv Spine [address] [facility] Absolute lymphocyte countOrd ered By: Carrillo Driscoll on 01-03-2025 Lymphocytes Auto (Unsp spec) [#/Vol] 1.77 10*3/uL 0.83-4.51 [facility] Absolute neutrophil countOrd ered By: Carrillo Driscoll on 01-03-2025 Neutrophils (Bld) [#/Vol] 3.8 10*3/uL 2.0-7.7 [facility] Anion gap in Serum or Plasma Ordered By: Carrillo Driscoll on 01-03-2025 Anion gap [Moles/Vol] 12 mmol/L 5-15 [facility] Automated lymphocyte count a s percentage of total leukocytesOrdered By: Carrillo Driscoll on 01-03-2025 Lymphocytes/100 WBC Auto (Unsp spec) 28.7 % 19-41 [facility] BUN/creatinine ratioOrdered By: Carrillo Driscoll on 01-03-2025 Urea nitrogen/Creatinine [Mass ratio] 46.4 mg/mg High 10-20 [facility] Basophil percentageOrdered B y: Carrillo Driscoll on 01-03-2025 Basophils/100 WBC (Bld) 1.3 % High 0-1 [facility] Bilirubin, totalOrdered By: Carrillo Driscoll on 01-03-2025 Bilirubin [Mass/Vol] 0.32 mg/dL 0.00-1.30 [facility] CBC W/Diff, Automatedon 12-12 Absolute Lymph 1.77 X10 3/uL Normal 0.83-4.51 [facility] Comment on above: Performed By: #### L 500.4050, L100.0100, L500.4100, L501.9520 ####[facility] [address] [place], [address] Absolute Neut 3.8 X10 3/uL Normal 2.0-7.7 [facility] Comment on above: Performed By: #### L 500.4050, L100.0100, L500.4100, L501.9520 ####[facility] [address] [place], [address] Basophils/100 WBC (Bld) 1.3 % High 0-1 [facility] Comment on above: Performed By: #### L 500.4050, L100.0100, L500.4100, L501.9520 ####[facility] [address] [place], [address] Eosinophils/100 WBC (Bld) 0.3 % Normal 0-5 [facility] Comment on above: Performed By: #### L 500.4050, L100.0100, L500.4100, L501.9520 ####[facility] [address] [place], [address] Erythrocyte distribution width (RBC) [Ratio] 12.6 % Normal 11.6-14.6 [facility] Comment on above: Performed By: #### L 500.4050, L100.0100, L500.4100, L501.9520 ####[facility] [address] [place], [address] Hematocrit (Bld) [Volume fraction] 39.5 % Normal 37-47 [facility] Comment on above: Performed By: #### L 500.4050, L100.0100, L500.4100, L501.9520 ####[facility] [address] [place], [address] Hemoglobin (Bld) [Mass/Vol] 13.5 g/dL Normal 12.0-15.0 [facility] Comment on above: Performed By: #### L 500.4050, L100.0100, L500.4100, L501.9520 ####[facility] [address] [place], [address] IG% 0.200 Normal 0.0-0.9 [facility] Comment on above: Result Comment: IG% - Immature Granulocytes (promyelocytes, myelocytes andmetamyelocytes) > 1% indicates that a LEFT SHIFT is Present. Performed By: #### L 500.4050, L100.0100, L500.4100, L501.9520 ####[facility] [address] [place], [address] Lymphocytes/100 WBC (Bld) 28.7 % Normal 19-41 [facility] Comment on above: Performed By: #### L 500.4050, L100.0100, L500.4100, L501.9520 ####[facility] [address] [place], [address] MCH (RBC) [Entitic mass] 31.7 pg Normal 27.0-32.0 [facility] Comment on above: Performed By: #### L 500.4050, L100.0100, L500.4100, L501.9520 ####[facility] [address] [place], [address] MCHC (RBC) [Mass/Vol] 34.2 g/dL Normal 32-36 [facility] Comment on above: Performed By: #### L 500.4050, L100.0100, L500.4100, L501.9520 ####[facility] [address] [place], [address] MCV (RBC) [Entitic vol] 92.7 fL Normal 81-99 [facility] Comment on above: Performed By: #### L 500.4050, L100.0100, L500.4100, L501.9520 ####[facility] [address] [place], [address] Monocytes/100 WBC (Bld) 8.1 % Normal 0-10 [facility] Comment on above: Performed By: #### L 500.4050, L100.0100, L500.4100, L501.9520 ####[facility] [address] [place], [address] Neutrophils/100 WBC (Bld) 61.4 % Normal 47-70 [facility] Comment on above: Performed By: #### L 500.4050, L100.0100, L500.4100, L501.9520 ####[facility] [address] [place], [address] Nucleated RBC (Bld) [#/Vol] 0 10*3/uL Normal 0-5 [facility] Comment on above: Performed By: #### L 500.4050, L100.0100, L500.4100, L501.9520 ####[facility] [address] [place], [address] Platelet mean volume (Bld) [Entitic vol] 9.3 fL Normal 6.2-12.0 [facility] Comment on above: Performed By: #### L 500.4050, L100.0100, L500.4100, L501.9520 ####[facility] [address] [place], [address] Platelets (Bld) [#/Vol] 382 10*3/uL Normal 150-450 [facility] Comment on above: Performed By: #### L 500.4050, L100.0100, L500.4100, L501.9520 ####[facility] [address] [place], [address] RBC (Bld) [#/Vol] 4.26 10*6/uL Normal 4.2-5.4 [facility] Comment on above: Performed By: #### L 500.4050, L100.0100, L500.4100, L501.9520 ####[facility] [address] [place], [address] RDW SD 42.6 fl Normal 35.1-43.9 [facility] Comment on above: Performed By: #### L 500.4050, L100.0100, L500.4100, L501.9520 ####[facility] [address] [place], [address] WBC (Bld) [#/Vol] 6.2 10*3/uL Normal 4.4-11.0 [facility] Comment on above: Performed By: #### L 500.4050, L100.0100, L500.4100, L501.9520 ####[facility] [address] [place], [address] Calculated very low density lipoprotein (VLDL) cholesterol measurementOrdered By: Carrillo Driscoll on 01-03-2025 Calculated very low density lipoprotein (VLDL) cholesterol measurement 22 mg/dL 5-40 [facility] Carbon dioxide, total [Moles /volume] in Central venous bloodOrdered By: Carrillo Driscoll on 01-03-2025 CO2 [Moles/Vol] 24.0 mmol/L 21.0-32.0 [facility] Chloride assayOrdered By: Jeremy kayla Americo on 01-03-2025 Chloride [Moles/Vol] 103 mmol/L 98-108 [facility] Comprehensive Metabolic Prof ilon 01-03-2025 Albumin [Mass/Vol] 4.7 g/dL Normal 3.5-5.0 [facility] Comment on above: Performed By: #### L 500.4050, L100.0100, L500.4100, L501.9520 ####[facility] [address] [place], [address] Albumin/Globulin [Mass ratio] 1.5 {ratio} Normal 0.9-2.4 [facility] Comment on above: Performed By: #### L 500.4050, L100.0100, L500.4100, L501.9520 ####[facility] [address] [place], [address] ALK PHOS 94 U/L Normal 35-104 [facility] Comment on above: Performed By: #### L 500.4050, L100.0100, L500.4100, L501.9520 ####[facility] [address] [place], [address] ALT [Catalytic activity/Vol] 25 U/L Normal <=34 [facility] Comment on above: Performed By: #### L 500.4050, L100.0100, L500.4100, L501.9520 ####[facility] [address] [place], [address] AST [Catalytic activity/Vol] 44 U/L High <=31 [facility] Comment on above: Performed By: #### L 500.4050, L100.0100, L500.4100, L501.9520 ####[facility] [address] [place], [address] Bilirubin [Mass/Vol] 0.32 mg/dL Normal 0.00-1.30 [facility] Comment on above: Performed By: #### L 500.4050, L100.0100, L500.4100, L501.9520 ####[facility] [address] [place], [address] BUN/CRE 46.4 RATIO High 10-20 [facility] Comment on above: Performed By: #### L 500.4050, L100.0100, L500.4100, L501.9520 ####[facility] [address] [place], [address] Calcium [Mass/Vol] 10.1 mg/dL Normal 7.6-11.0 [facility] Comment on above: Performed By: #### L 500.4050, L100.0100, L500.4100, L501.9520 ####[facility] [address] [place], [address] Chloride [Moles/Vol] 103 mmol/L Normal 98-108 [facility] Comment on above: Performed By: #### L 500.4050, L100.0100, L500.4100, L501.9520 ####[facility] [address] [place], [address] CO2 [Moles/Vol] 24.0 mmol/L Normal 21.0-32.0 [facility] Comment on above: Performed By: #### L 500.4050, L100.0100, L500.4100, L501.9520 ####[facility] [address] [place], [address] Creatinine [Mass/Vol] 0.56 mg/dL Low 0.70-1.20 [facility] Comment on above: Performed By: #### L 500.4050, L100.0100, L500.4100, L501.9520 ####[facility] [address] [place], [address] GAP 12 Normal 5-15 [facility] Comment on above: Performed By: #### L 500.4050, L100.0100, L500.4100, L501.9520 ####[facility] [address] [place], [address] GFR/1.73 sq M.predicted among non-blacks MDRD (S/P/Bld) [Vol rate/Area] 107 mL/min/{1.73_m2} Normal >60 [facility] Comment on above: Result Comment: mL/m in/1.73m2 CKD-EPI Creatinine Equation (2020) Performed By: #### L 500.4050, L100.0100, L500.4100, L501.9520 ####[facility] [address] [place], [address] Globulin (S) [Mass/Vol] 3.1 g/dL Normal 2.2-4.2 [facility] Comment on above: Performed By: #### L 500.4050, L100.0100, L500.4100, L501.9520 ####[facility] [address] [place], [address] Glucose [Mass/Vol] 106 mg/dL High 70-99 [facility] Comment on above: Performed By: #### L 500.4050, L100.0100, L500.4100, L501.9520 ####[facility] [address] [place], [address] Potassium [Moles/Vol] 4.7 mmol/L Normal 3.3-5.1 [facility] Comment on above: Performed By: #### L 500.4050, L100.0100, L500.4100, L501.9520 ####[facility] [address] [place], [address] Sodium [Moles/Vol] 139 mmol/L Normal 133-145 [facility] Comment on above: Performed By: #### L 500.4050, L100.0100, L500.4100, L501.9520 ####[facility] [address] [place], [address] T PROT 7.8 g/dL Normal 5.9-8.4 [facility] Comment on above: Performed By: #### L 500.4050, L100.0100, L500.4100, L501.9520 ####[facility] [address] [place], [address] Urea nitrogen [Mass/Vol] 26 mg/dL High 4-19 [facility] Comment on above: Performed By: #### L 500.4050, L100.0100, L500.4100, L501.9520 ####[facility] [address] [place], [address] Eosinophil percentageOrdered By: Carrillo Driscoll on 01-03-2025 Eosinophils/100 WBC (Bld) 0.3 % 0-5 [facility] Erythrocyte distribution wid th ratioOrdered By: Carrillo Driscoll on 01-03-2025 Erythrocyte distribution width (RBC) [Ratio] 12.6 % 11.6-14.6 [facility] Erythrocyte distribution wid th standard deviationOrdered By: Carrillo Driscoll on 01-03-2025 Erythrocyte distribution width (RBC) [Ratio] 42.6 fl 35.1-43.9 [facility] Glomerular filtration rate ( GFR) estimation/1.73 sq m using serum, plasma, or whole bOrdered By: Carrillo Driscoll on 01-03-2025 GFR/1.73 sq M.predicted among non-blacks MDRD (S/P/Bld) [Vol rate/Area] 107 mL/min/{1.73_m2} >60 [facility] Comment on above: mL/min/1.73m2 CKD-EP I Creatinine Equation (2020) Hematocrit Auto (Bld) [Volum e fraction]Ordered By: Carrillo Driscoll on 01-03-2025 Hematocrit (Bld) [Volume fraction] 39.5 % 37-47 [facility] Hemoglobin measurementOrdere d By: Carrillo Driscoll on 01-03-2025 Hemoglobin (Bld) [Mass/Vol] 13.5 g/dL 12.0-15.0 [facility] Immature granulocytes/100 WB C Auto (Bld)Ordered By: Carrillo Driscoll on 01-03-2025 Immature granulocytes/100 WBC (Bld) 0.200 % 0.0-0.9 [facility] Comment on above: IG% - Immature Granu locytes (promyelocytes, myelocytes and metamyelocytes) > 1% indicates that a LEFT SHIFT is Present. LDL calc ser/plasOrdered By: Carrillo Driscoll on 01-03-2025 Cholesterol in LDL [Mass/Vol] 221 mg/dL [facility] Comment on above: Dzwcwrzyhl=040-943 m g/dL & Higher Qznl=798 mg/dL or greater Laboratory - Chemistry and C hemistry - challengeOrdered By: Carrillo Driscoll on 01-03-2025 AST [Catalytic activity/Vol] 44 U/L High <32 [facility] Lipid Profileon 01-03-2025 CHOL:HDL 4.74 Normal [facility] Comment on above: Performed By: #### L 500.4050, L100.0100, L500.4100, L501.9520 ####[facility] [address] [place], [address] Cholesterol [Mass/Vol] 307 mg/dL High <=200 [facility] Comment on above: Result Comment: Chol esterol level, Desirable <200 mg/dLBorderline high cholesterol 200-239 mg/dLHigh cholesterol >=240 mg/dLRecommendations of the NCEP Adult Treatment Panel for thefollowing risk-cutoff thresholds for the [place] Americanpulation. Performed By: #### L 500.4050, L100.0100, L500.4100, L501.9520 ####[facility] [address] [place], [address] Cholesterol in HDL [Mass/Vol] 65 mg/dL Normal [facility] Comment on above: Result Comment: Brianna onal Cholesterol Education Program (NCEP) guidelines:<40 mg/dL: Low HDL-cholesterol (major risk factor for CHD)>= 60 mg/dL: High HDL-cholesterol (negative risk factor forCHD)HDL-cholesterol is affected by a number of factors, e.g.smoking, exercise, hormones, sex and age. Performed By: #### L 500.4050, L100.0100, L500.4100, L501.9520 ####[facility] [address] [place], [address] Cholesterol in LDL [Mass/Vol] 221 mg/dL Normal [facility] Comment on above: Result Comment: Bord hotreq=356-738 mg/dL Higher Ctyd=470 mg/dL or greater Performed By: #### L 500.4050, L100.0100, L500.4100, L501.9520 ####[facility] [address] [place], [address] Cholesterol in VLDL [Mass/Vol] 22 mg/dL Normal 5-40 [facility] Comment on above: Performed By: #### L 500.4050, L100.0100, L500.4100, L501.9520 ####[facility] [address] [place], [address] Triglyceride [Mass/Vol] 108 mg/dL Normal [facility] Comment on above: Result Comment: The drugs N-Acetylcysteine and Metamizole may falselydepress this assay.Normal range: <150 mg/dLBorderline High: 150-199 mg/dLHigh: 200-499 mg/dLVery High: >500 mg/dL Performed By: #### L 500.4050, L100.0100, L500.4100, L501.9520 ####[facility] [address] [place], [address] MCV (mean corpuscular volume ) determinationOrdered By: Carrillo Driscoll on 01-03-2025 MCV (RBC) [Entitic vol] 92.7 fL 81-99 [facility] Mean corpuscular hemoglobin (MCH) determinationOrdered By: Carrillo Driscoll on 01-03-2025 MCH (RBC) [Entitic mass] 31.7 pg 27.0-32.0 [facility] Mean corpuscular hemoglobin concentration (MCHC) determinationOrdered By: Carrillo Driscoll on 01-03-2025 MCHC (RBC) [Mass/Vol] 34.2 g/dL 32-36 [facility] Mean platelet volume determi nationOrdered By: Carrillo Driscoll on 01-03-2025 Platelet mean volume (Bld) [Entitic vol] 9.3 fL 6.2-12.0 [facility] Monocyte percentageOrdered B y: Carrillo Driscoll on 01-03-2025 Monocytes/100 WBC (Bld) 8.1 % 0-10 [facility] Neutrophil percentageOrdered By: Carrillo Driscoll on 01-03-2025 Neutrophils/100 WBC (Bld) 61.4 % 47-70 [facility] Nucleated red blood cell per centageOrdered By: Carrillo Driscoll on 01-03-2025 Nucleated RBC/100 WBC (Bld) [Ratio] 0 % 0-5 [facility] Platelet countOrdered By: Jeremy Driscoll on 01-03-2025 Platelets (Bld) [#/Vol] 382 10*3/uL 150-450 [facility] Potassium measurement (mass/ volume)Ordered By: Carrillo Driscoll 01-03-2025 Potassium (Unsp spec) [Mass/Vol] 4.7 mmol/L 3.3-5.1 [facility] RBC Auto (Bld) [#/Vol]Ordere d By: Carrillo Driscoll on 01-03-2025 RBC (Bld) [#/Vol] 4.26 10*6/uL 4.2-5.4 [facility] Screening total cholesterol/ high density lipoprotein (HDL) cholesterol ratioOrdered By: Carrillo Driscoll 01-03-2025 Cholesterol.total/Choles terol in HDL [Mass ratio] 4.74 {ratio} [facility] Serum creatinine measurement (mass/volume)Ordered By: Carrillo Driscoll on 01-03-2025 Creatinine [Mass/Vol] 0.56 mg/dL Low 0.70-1.20 [facility] Serum globulin measurementOr dered By: Carrillo Driscoll 01-03-2025 Globulin (S) [Mass/Vol] 3.1 g/dL 2.2-4.2 [facility] Serum glucose measurement (m ass/volume)Ordered By: Carrillo Driscoll 01-03-2025 Glucose [Mass/Vol] 106 mg/dL High 70-99 [facility] Serum or plasma alanine ho otransferase (ALT) measurementOrdered By: Carrillo Driscoll on 01-03-2025 ALT [Catalytic activity/Vol] 25 U/L <35 [facility] Serum or plasma albumin royal urement (mass/volume)Ordered By: Carrillo Driscoll 01-03-2025 Albumin [Mass/Vol] 4.7 g/dL 3.5-5.0 [facility] Serum or plasma albumin/glob ulin mass ratioOrdered By: Carrillo Driscoll 01-03-2025 Albumin/Globulin [Mass ratio] 1.5 {ratio} 0.9-2.4 [facility] Serum or plasma alkaline ida sphatase measurementOrdered By: Carrillo Driscoll 01-03-2025 ALP [Catalytic activity/Vol] 94 U/L 35-104 [facility] Serum or plasma calcium royal urement (mass/volume)Ordered By: Carrillo Driscoll 01-03-2025 Calcium [Mass/Vol] 10.1 mg/dL 7.6-11.0 [facility] Serum or plasma cholesterol in HDL measurement (mass/volume)Ordered By: Carrillo Driscoll 01-03-2025 Cholesterol in HDL [Mass/Vol] 65 mg/dL >40 [facility] Comment on above: National Cholesterol Education Program (NCEP) guidelines:<40 mg/dL: Low HDL-cholesterol (major risk factor for CHD)>= 60 mg/dL: High HDL-cholesterol (negative risk factor for CHD)HDL-cholesterol is affected by a number of factors, e.g. smoking, exercise, hormones, sex and age. Serum or plasma cholesterol measurement (mass/volume)Ordered By: Carrillo Driscoll 01-03-2025 Cholesterol [Mass/Vol] 307 mg/dL High <201 [facility] Comment on above: Cholesterol level, D esirable <200 mg/dLBorderline high cholesterol 200-239 mg/dLHigh cholesterol >=240 mg/dLRecommendations of the NCEP Adult Treatment Panel for the following risk-cutoff thresholds for the [place] population. Serum or plasma urea nitroge n measurement (mass/volume)Ordered By: Carrillo Driscoll on 01-03-2025 Urea nitrogen [Mass/Vol] 26 mg/dL High 4-19 [facility] Sodium levelOrdered By: Carrillo Driscoll on 01-03-2025 Sodium [Moles/Vol] 139 mmol/L 133-145 [facility] TSH DL <= 0.005 mIU/L QnOrde red By: Carrillo Driscoll on 01-03-2025 TSH Qn 1.610 uIU/mL 0.300-4.200 [facility] Thyroid Stim Hormone (TSH)on 01-03-2025 TSH 1.610 uIU/mL Normal 0.300-4.200 [facility] Comment on above: Performed By: #### L 500.4050, L100.0100, L500.4100, L501.9520 ####[facility] [address] [place], [address] Total proteinOrdered By: Carrillo Driscoll on 01-03-2025 Protein [Mass/Vol] 7.8 g/dL 5.9-8.4 [facility] Triglycerides measurementOrd ered By: Carrillo Driscoll on 01-03-2025 Triglyceride [Mass/Vol] 108 mg/dL <199 [facility] Comment on above: The drugs N-Acetylcy steine and Metamizole may falsely depress this assay. Normal range: <150 mg/dLBorderline High: 150-199 mg/dLHigh: 200-499 mg/dLVery High: >500 mg/dL White blood cell (WBC) count Ordered By: Carrillo Driscoll on 01-03-2025 WBC (Bld) [#/Vol] 6.2 10*3/uL 4.4-11.0 [facility] PT D/C Summary (1)on 025 PT D/C Summary (1) Normal [facility] Breast Limited Unilateralon 12-06-2024 Breast Limited Unilateral Normal [facility] Low Dose CT Lung Screeningon 12-04-[address] Lung Screening Normal [facility] Oncology Visit Reporton 11-11 Oncology Visit Report Normal [facility] Surgery Visit Reporton 11-30 Surgery Visit Report Normal [facility] Inital Evaluation (1) - PTon 11-27-2024 Inital Evaluation (1) - PT Normal [facility] Oncology Visit Reporton 11-10 Oncology Visit Report Normal [facility] Breast Limited Unilateralon 11-23-2024 Breast Limited Unilateral Normal [facility] Breast imaging reportOrdered By: Vidal Álvarez on 11-23-2024 Study report [facility] Imaging Services [address] [place], [place] [address] DIAG MAMM W/CAD, UNILAT MR#: [id number] Acct: [id number] Name: FEDE LUSI Rep #: [id number] : [id number] F [id number] From: [place] Álvarez MD PCP: Dr. Carrillo Driscoll MD Status: MAKSIM DELEON Study:DIAG MAMM W/CAD, UNILAT Date of Exam: 11/23/24 Exam# [id number] Ordering Dr: Renetta Guillory NP [employer] PROCEDURE: DIAG MAMM W/CAD, UNILAT REASON FOR EXAM: RIGHT BREAST MASS; H/O BREAST CANCER Palpable lump at the lumpectomy site. History of aunt with breast cancer. TECHNIQUE: Bilateral diagnostic digital breast tomosynthesis with 2D and 3D images. Computer aided detection. COMPARISON: Prior exam(s) dating back to January 03, 2024.. FINDINGS: The breasts are heterogeneously dense which may obscure small masses. The patient is status post lumpectomy in the upper lateral aspect of the right breast with postoperative scarring. Surgical clips are seen at the operative site. No mass lesion is seen. Sonographic correlation recommended. BI/DIAG MAMM W/CAD, UNILAT IMPRESSION: Status post lumpectomy in the upper lateral aspect of the right breast as described with postoperative surgical changes. Correlation with ultrasound recommended. Follow-up code: Ultrasound Recommended BI-RADS category 0. Reading Location: [place] [address] CC: NOLAN Oden; Dr. Carrillo Driscoll MD ~ [place] In: Signed [facility] DIAG MAMM W/CAD, UNILATon DIAG MAMM W/CAD, UNILAT Normal [facility] Absolute lymphocyte countOrd ered By: Renetta Oden on 11-19-2024 Lymphocytes Auto (Unsp spec) [#/Vol] 2.23 10*3/uL 0.83-4.51 [facility] Absolute neutrophil countOrd ered By: Renetta Oden on 11-19-2024 Neutrophils (Bld) [#/Vol] 4.3 10*3/uL 2.0-7.7 [facility] Anion gap in Serum or Plasma Ordered By: Renetta Oden on 11-19-2024 Anion gap [Moles/Vol] 13 mmol/L 5-15 [facility] Automated lymphocyte count a s percentage of total leukocytesOrdered By: Renetta Oden on 11-19-2024 Lymphocytes/100 WBC Auto (Unsp spec) 32.0 % 19-41 [facility] BUN/creatinine ratioOrdered By: Renetta Oden on 11-19-2024 Urea nitrogen/Creatinine [Mass ratio] 23.6 mg/mg High 10-20 [facility] Basophil percentageOrdered B y: Renetta Oden on 11-19-2024 Basophils/100 WBC (Bld) 1.0 % 0-1 [facility] Bilirubin, totalOrdered By: Renetta Oden on 11-19-2024 Bilirubin [Mass/Vol] 0.27 mg/dL 0.00-1.30 [facility] CBC W/Diff, Automatedon 11-10 Absolute Lymph 2.23 X10 3/uL Normal 0.83-4.51 [facility] Comment on above: Performed By: #### L 500.4050, L100.0100 ####[facility] [address] [place], [place], [id number] Absolute Neut 4.3 X10 3/uL Normal 2.0-7.7 [facility] Comment on above: Performed By: #### L 500.4050, L100.0100 ####[facility] [address] [place], [address] Basophils/100 WBC (Bld) 1.0 % Normal 0-1 [facility] Comment on above: Performed By: #### L 500.4050, L100.0100 ####[facility] [address] [place], [address] Eosinophils/100 WBC (Bld) 0.4 % Normal 0-5 [facility] Comment on above: Performed By: #### L 500.4050, L100.0100 ####[facility] [address] [place], [address] Erythrocyte distribution width (RBC) [Ratio] 12.2 % Normal 11.6-14.6 [facility] Comment on above: Performed By: #### L 500.4050, L100.0100 ####[facility] [address] [place], [address] Hematocrit (Bld) [Volume fraction] 37.6 % Normal 37-47 [facility] Comment on above: Performed By: #### L 500.4050, L100.0100 ####[facility] [address] [place], [address] Hemoglobin (Bld) [Mass/Vol] 12.8 g/dL Normal 12.0-15.0 [facility] Comment on above: Performed By: #### L 500.4050, L100.0100 ####[facility] [address] [place], [address] IG% 0.600 Normal 0.0-0.9 [facility] Comment on above: Result Comment: IG% - Immature Granulocytes (promyelocytes, myelocytes andmetamyelocytes) > 1% indicates that a LEFT SHIFT is Present. Performed By: #### L 500.4050, L100.0100 ####[facility] [address], [address] Lymphocytes/100 WBC (Bld) 32.0 % Normal 19-41 [facility] Comment on above: Performed By: #### L 500.4050, L100.0100 ####[facility] [address], [address] MCH (RBC) [Entitic mass] 31.1 pg Normal 27.0-32.0 [facility] Comment on above: Performed By: #### L 500.4050, L100.0100 ####[facility] [address] [place], [address] MCHC (RBC) [Mass/Vol] 34.0 g/dL Normal 32-36 [facility] Comment on above: Performed By: #### L 500.4050, L100.0100 ####[facility] [address] [place], [address] MCV (RBC) [Entitic vol] 91.5 fL Normal 81-99 [facility] Comment on above: Performed By: #### L 500.4050, L100.0100 ####[facility] [address] [place], [address] Monocytes/100 WBC (Bld) 4.3 % Normal 0-10 [facility] Comment on above: Performed By: #### L 500.4050, L100.0100 ####[facility] [address] [place], [address] Neutrophils/100 WBC (Bld) 61.7 % Normal 47-70 [facility] Comment on above: Performed By: #### L 500.4050, L100.0100 ####[facility] [address] [place], [address] Nucleated RBC (Bld) [#/Vol] 0 10*3/uL Normal 0-5 [facility] Comment on above: Performed By: #### L 500.4050, L100.0100 ####[facility] [address] [place], [address] Platelet mean volume (Bld) [Entitic vol] 9.8 fL Normal 6.2-12.0 [facility] Comment on above: Performed By: #### L 500.4050, L100.0100 ####[facility] [address] [place], [address] Platelets (Bld) [#/Vol] 397 10*3/uL Normal 150-450 [facility] Comment on above: Performed By: #### L 500.4050, L100.0100 ####[facility] [address] [place], [address] RBC (Bld) [#/Vol] 4.11 10*6/uL Low 4.2-5.4 [facility] Comment on above: Performed By: #### L 500.4050, L100.0100 ####[facility] [address] [place], [address] RDW SD 40.7 fl Normal 35.1-43.9 [facility] Comment on above: Performed By: #### L 500.4050, L100.0100 ####[facility] [address] [place], [address] WBC (Bld) [#/Vol] 7.0 10*3/uL Normal 4.4-11.0 [facility] Comment on above: Performed By: #### L 500.4050, L100.0100 ####[facility] [address] [place], [address] Carbon dioxide, total [Moles /volume] in Central venous bloodOrdered By: Renetta Oden on 11-19-2024 CO2 [Moles/Vol] 23.7 mmol/L 21.0-32.0 [facility] Chloride assayOrdered By: Gage Oden on 11-19-2024 Chloride [Moles/Vol] 104 mmol/L 98-108 [facility] Comprehensive Metabolic Prof ilon 11-19-2024 Albumin [Mass/Vol] 4.8 g/dL Normal 3.5-5.0 [facility] Comment on above: Performed By: #### L 500.4050, L100.0100 ####[facility] [address], [address] Albumin/Globulin [Mass ratio] 1.7 {ratio} Normal 0.9-2.4 [facility] Comment on above: Performed By: #### L 500.4050, L100.0100 ####[facility] [address] [place], [address] ALK PHOS 95 U/L Normal 35-104 [facility] Comment on above: Performed By: #### L 500.4050, L100.0100 ####[facility] [address] [place], [address] ALT [Catalytic activity/Vol] 30 U/L Normal <=34 [facility] Comment on above: Performed By: #### L 500.4050, L100.0100 ####[facility] [address] [place], [address] AST [Catalytic activity/Vol] 22 U/L Normal <=31 [facility] Comment on above: Performed By: #### L 500.4050, L100.0100 ####[facility] [address] [place], [address] Bilirubin [Mass/Vol] 0.27 mg/dL Normal 0.00-1.30 [facility] Comment on above: Performed By: #### L 500.4050, L100.0100 ####[facility] [address] [place], [address] BUN/CRE 23.6 RATIO High 10-20 [facility] Comment on above: Performed By: #### L 500.4050, L100.0100 ####[facility] [address] [place], [address] Calcium [Mass/Vol] 9.9 mg/dL Normal 7.6-11.0 [facility] Comment on above: Performed By: #### L 500.4050, L100.0100 ####[facility] [address] [place], [address] Chloride [Moles/Vol] 104 mmol/L Normal 98-108 [facility] Comment on above: Performed By: #### L 500.4050, L100.0100 ####[facility] [address] [place], [address] CO2 [Moles/Vol] 23.7 mmol/L Normal 21.0-32.0 [facility] Comment on above: Performed By: #### L 500.4050, L100.0100 ####[facility] [address] [place], [address] Creatinine [Mass/Vol] 0.55 mg/dL Low 0.70-1.20 [facility] Comment on above: Performed By: #### L 500.4050, L100.0100 ####[facility] [address] [place], [address] ECRCL 115.21 ml/min Normal 50-250 [facility] Comment on above: Performed By: #### L 500.4050, L100.0100 ####[facility] [address] [place], [address] GAP 13 Normal 5-15 [facility] Comment on above: Performed By: #### L 500.4050, L100.0100 ####[facility] [address] [place], [address] GFR/1.73 sq M.predicted among non-blacks MDRD (S/P/Bld) [Vol rate/Area] 108 mL/min/{1.73_m2} Normal >60 [facility] Comment on above: Result Comment: mL/m in/1.73m2 CKD-EPI Creatinine Equation (2020) Performed By: #### L 500.4050, L100.0100 ####[facility] [address] [place], [address] Globulin (S) [Mass/Vol] 2.9 g/dL Normal 2.2-4.2 [facility] Comment on above: Performed By: #### L 500.4050, L100.0100 ####[facility] [address] [place], [address] Glucose [Mass/Vol] 93 mg/dL Normal 70-99 [facility] Comment on above: Performed By: #### L 500.4050, L100.0100 ####[facility] [address] [place], [address] Potassium [Moles/Vol] 3.6 mmol/L Normal 3.3-5.1 [facility] Comment on above: Performed By: #### L 500.4050, L100.0100 ####[facility] [address] [place], [address] Sodium [Moles/Vol] 141 mmol/L Normal 133-145 [facility] Comment on above: Performed By: #### L 500.4050, L100.0100 ####[facility] [address] [place], [address] T PROT 7.7 g/dL Normal 5.9-8.4 [facility] Comment on above: Performed By: #### L 500.4050, L100.0100 ####[facility] [address] [place], [place], [address] Urea nitrogen [Mass/Vol] 13 mg/dL Normal 4-19 [facility] Comment on above: Performed By: #### L 500.4050, L100.0100 ####[facility] [address] [place], [address] Eosinophil percentageOrdered By: Renetta Oden on 11-19-2024 Eosinophils/100 WBC (Bld) 0.4 % 0-5 [facility] Erythrocyte distribution wid th ratioOrdered By: Renetta Oden on 11-19-2024 Erythrocyte distribution width (RBC) [Ratio] 12.2 % 11.6-14.6 [facility] Erythrocyte distribution wid th standard deviationOrdered By: Renetta Oden on 11-19-2024 Erythrocyte distribution width (RBC) [Entitic vol] 40.7 fL 35.1-43.9 [facility] Erythrocyte distribution width (RBC) [Ratio] 40.7 fl 35.1-43.9 [facility] Estimation of creatinine carlyle aranceOrdered By: Renetta Oden on 11-19-2024 Estimated Creatinine Clearance Calc 115.21 ml/min 50-250 [facility] GFR/1.73 sq M.predicted shona g non-blacks MDRD (S/P/Bld) [Vol rate/Area]Ordered By: Renetta Oden on 11-19-2024 Estimated GFR (MDRD) Non-Af Amer 108 >60 [facility] Comment on above: mL/min/1.73m2 CKD-EP I Creatinine Equation (2020) Glomerular filtration rate ( GFR) estimation/1.73 sq m using serum, plasma, or whole bOrdered By: Renetta Oden on 11-19-2024 GFR/1.73 sq M.predicted among non-blacks MDRD (S/P/Bld) [Vol rate/Area] 108 mL/min/{1.73_m2} >60 [facility] Comment on above: mL/min/1.73m2 CKD-EP I Creatinine Equation (2020) Hematocrit Auto (Bld) [Volum e fraction]Ordered By: Renetta Oden on 11-19-2024 Hematocrit (Bld) [Volume fraction] 37.6 % 37-47 [facility] Hemoglobin measurementOrdere d By: Renetta Oden on 11-19-2024 Hemoglobin (Bld) [Mass/Vol] 12.8 g/dL 12.0-15.0 [facility] Immature granulocytes/100 WB C Auto (Bld)Ordered By: Renetta Oden on 11-19-2024 Immature granulocytes/100 WBC (Bld) 0.600 % 0.0-0.9 [facility] Comment on above: IG% - Immature Granu locytes (promyelocytes, myelocytes and metamyelocytes) > 1% indicates that a LEFT SHIFT is Present. Laboratory - Chemistry and C hemistry - challengeOrdered By: Renetta Oden on 11-19-2024 AST [Catalytic activity/Vol] 22 U/L <32 [facility] Lymphocytes Auto (Unsp spec) [#/Vol]Ordered By: Renetta Oden on 11-19-2024 Lymphocytes (Bld) [#/Vol] 2.23 10*3/uL 0.83-4.51 [facility] Lymphocytes/100 WBC Auto (Un sp spec)Ordered By: Renetta Oden on 11-19-2024 Lymphocytes/100 WBC (Bld) 32.0 % 19-41 [facility] MCV (mean corpuscular volume ) determinationOrdered By: Renetta Oden on 11-19-2024 MCV (RBC) [Entitic vol] 91.5 fL 81-99 [facility] Mean corpuscular hemoglobin (MCH) determinationOrdered By: Renetta Oden on 11-19-2024 MCH (RBC) [Entitic mass] 31.1 pg 27.0-32.0 [facility] Mean corpuscular hemoglobin concentration (MCHC) determinationOrdered By: Renetta Oden on 11-19-2024 MCHC (RBC) [Mass/Vol] 34.0 g/dL 32-36 [facility] Mean platelet volume determi nationOrdered By: Renetta Oden on 11-19-2024 Platelet mean volume (Bld) [Entitic vol] 9.8 fL 6.2-12.0 [facility] Monocyte percentageOrdered B y: Renetta Oden on 11-19-2024 Monocytes/100 WBC (Bld) 4.3 % 0-10 [facility] Neutrophil percentageOrdered By: Renetta Oden on 11-19-2024 Neutrophils/100 WBC (Bld) 61.7 % 47-70 [facility] Nucleated red blood cell per centageOrdered By: Renetta Oden on 11-19-2024 Nucleated RBC/100 WBC (Bld) [Ratio] 0 % 0-5 [facility] Oncology Visit Reporton 11-10 Oncology Visit Report Normal [facility] Platelet countOrdered By: Gage Oden on 11-19-2024 Platelets (Bld) [#/Vol] 397 10*3/uL 150-450 [facility] Potassium (Unsp spec) [Mass/ Vol]Ordered By: Renetta Oden on 11-19-2024 Potassium [Moles/Vol] 3.6 mmol/L 3.3-5.1 [facility] Potassium measurement (mass/ volume)Ordered By: Renetta Oden on 11-19-2024 Potassium (Unsp spec) [Mass/Vol] 3.6 mmol/L 3.3-5.1 [facility] RBC Auto (Bld) [#/Vol]Ordere d By: Renetta Oden on 11-19-2024 RBC (Bld) [#/Vol] 4.11 10*6/uL Low 4.2-5.4 [facility] Serum creatinine measurement (mass/volume)Ordered By: Renetta Oden on 11-19-2024 Creatinine [Mass/Vol] 0.55 mg/dL Low 0.70-1.20 [facility] Serum globulin measurementOr dered By: Renetta Oden on 11-19-2024 Globulin (S) [Mass/Vol] 2.9 g/dL 2.2-4.2 [facility] Serum glucose measurement (m ass/volume)Ordered By: Renetta Oden on 11-19-2024 Glucose [Mass/Vol] 93 mg/dL 70-99 [facility] Serum or plasma alanine ho otransferase (ALT) measurementOrdered By: Renetta Oden on 11-19-2024 ALT [Catalytic activity/Vol] 30 U/L <35 [facility] Serum or plasma albumin royal urement (mass/volume)Ordered By: Renetta Oden on 11-19-2024 Albumin [Mass/Vol] 4.8 g/dL 3.5-5.0 [facility] Serum or plasma albumin/glob ulin mass ratioOrdered By: Renetta Akshat on 11-19-2024 Albumin/Globulin [Mass ratio] 1.7 {ratio} 0.9-2.4 [facility] Serum or plasma alkaline ida sphatase measurementOrdered By: Renetta Oden on 11-19-2024 ALP [Catalytic activity/Vol] 95 U/L 35-104 [facility] Serum or plasma calcium royal urement (mass/volume)Ordered By: Renetta Oden on 11-19-2024 Calcium [Mass/Vol] 9.9 mg/dL 7.6-11.0 [facility] Serum or plasma urea nitroge n measurement (mass/volume)Ordered By: Renetta Oden on 11-19-2024 Urea nitrogen [Mass/Vol] 13 mg/dL 4-19 [facility] Sodium levelOrdered By: RenettaArbour HospitalAkshat on 11-19-2024 Sodium [Moles/Vol] 141 mmol/L 133-145 [facility] Total proteinOrdered By: Shelly Oden on 11-19-2024 Protein [Mass/Vol] 7.7 g/dL 5.9-8.4 [facility] White blood cell (WBC) count Ordered By: Renetta Oden on 11-19-2024 WBC (Bld) [#/Vol] 7.0 10*3/uL 4.4-11.0 [facility] PAP IG HPV APTIMA 16/18,45on 09-13-2024 ADEQ Comment Normal . [facility] Comment on above: Order Comment: Speci men Comment: [id number] Comment: Source.............Cervix;EndocervixSpecimen Comment: Other..............Post MenopausalSpecimen Comment: No. of containers..01 ThinPrep Vial Result Comment: Sati sfactory for evaluation. Endocervical component may not bedistinguished in cases of atrophy. Performed By: #### L 7400.0280 ####[facility] [address] [place], [place], [id number] COMM . Normal . [facility] Comment on above: Order Comment: Speci men Comment: [id number] Comment: Source.............Cervix;EndocervixSpecimen Comment: Other..............Post MenopausalSpecimen Comment: No. of containers..01 ThinPrep Vial Performed By: #### L 7400.0280 ####[facility] [address] [place], [address] COMMENT Comment Normal . [facility] Comment on above: Order Comment: Speci men Comment: [id number] Comment: Source.............Cervix;EndocervixSpecimen Comment: Other..............Post MenopausalSpecimen Comment: No. of containers..01 ThinPrep Vial Result Comment: This liquid based ThinPrep(R) pap test was screened withthe use of an image guided system. Performed By: #### L 7400.0280 ####[facility] [address] [place], [place], [id number] DIAG Comment Normal . [facility] Comment on above: Order Comment: Speci men Comment: [id number] Comment: Source.............Cervix;EndocervixSpecimen Comment: Other..............Post MenopausalSpecimen Comment: No. of containers..01 ThinPrep Vial Result Comment: NEGA TIVE FOR INTRAEPITHELIAL LESION OR MALIGNANCY.CELLULAR CHANGES ASSOCIATED WITH ATROPHY ARE PRESENT. Performed By: #### L 7400.0280 ####[facility] [address] [place], [place], [id number] HPV APTIMA, HR Negative Normal Negative [facility] Comment on above: Order Comment: Speci men Comment: [id number] Comment: Source.............Cervix;EndocervixSpecimen Comment: Other..............Post MenopausalSpecimen Comment: No. of containers..01 ThinPrep Vial Result Comment: This nucleic acid amplification test detects fourteen high-risk HPV types (16,18,31,33,35,39,45,51,52,56,58,59,66,68)without differentiation. Performed By: #### L 7400.0280 ####[facility] [address] [facility] [address] [place], [place], [id number] HPV Ashly Rfx Comment Normal . [facility] Comment on above: Order Comment: Speci men Comment: [id number] Comment: Source.............Cervix;EndocervixSpecimen Comment: Other..............Post MenopausalSpecimen Comment: No. of containers..01 ThinPrep Vial Result Comment: Crit eria not met, HPV Genotype not performed.Performed at: - [facility] [id number] Director: Sonia Morelos MD, Phone: [phone] at: = - [facility], [place] [id number] Director: Sonia Morelos MD, Phone: [phone] Performed By: #### L 7400.0280 ####[facility] [address] [place], [place], [id number] PAPSMR Comment Normal . [facility] Comment on above: Order Comment: Speci men Comment: [id number] Comment: Source.............Cervix;EndocervixSpecimen Comment: Other..............Post MenopausalSpecimen Comment: No. of containers..01 ThinPrep Vial Result Comment: The Pap smear is a screening test designed to aid in thedetection of premalignant and malignant conditions of theuterine cervix. It is not a diagnostic procedure andshould not be used as the sole means of detecting cervicalcancer. Both false-positive and false-negative reports dooccur. Performed By: #### L 7400.0280 ####[facility] [address] [place], [place], [id number] PERFORM Comment Normal . [facility] Comment on above: Order Comment: Speci men Comment: [id number] Comment: Source.............Cervix;EndocervixSpecimen Comment: Other..............Post MenopausalSpecimen Comment: No. of containers..01 ThinPrep Vial Result Comment: Lucila Calzada Olericulture Teacher (ASCP) Performed By: #### L 7400.0280 ####[facility] [address] [facility] [address] [place], [place], [id number] Radiation Oncology Visiton 0 09-13-2024 Radiation Oncology Visit Normal [facility] Fleet Administrator Cyto stain Nom (C vx/Vag) [ID]Ordered By: Miroslava Marcano on 09-10-2024 Pap Smear Performed By Comment . [facility] Comment on above: Jeri Calzada, Cyto technologist (ASCP) Cytology report Cyto stain D oc (Cvx/Vag)Ordered By: Miroslava Marcano on 09-10-2024 Thin Prep Pap Smear Comment . [facility] Comment on above: The Pap smear is a s creening test designed to aid in thedetection of premalignant and malignant conditions of theuterine cervix. It is not a diagnostic procedure andshould not be used as the sole means of detecting cervicalcancer. Both false-positive and false-negative reports dooccur. Cytology report Cyto stain.t hin prep Doc (Cvx/Vag)Ordered By: Miroslava Marcano on 09-10-2024 HPV Genotype Special Info Comment . [facility] Comment on above: Criteria not met, HP V Genotype not performed.Performed at: WB - [facility] [id number] Director: Sonia Morelos MD, Phone: [phone] at: =G - [facility] [address] [id number] Director: Sonia Morelos MD, Phone: [phone] HPV 16+18+31+33+35+39+45+51+ 52+56+58+59+66+68 DNA Probe+sig amp Ql (Cvx)Ordered By: Miroslava Marcano on 09-10-2024 Human Papillomavirus High Risk Negative Negative [facility] Comment on above: This nucleic acid am plification test detects fourteen high-risk HPV types (16,18,31,33,35,39,45,51,52,56,58,59,66,68)without differentiation. Image-guided ThinPrep PapOrd ered By: Miroslava Marcano on 09-10-2024 Pap Smear Note Comment . [facility] Comment on above: This liquid based Th inPrep(R) pap test was screened withthe use of an image guided system. Image-guided liquid-based Pa pOrdered By: Miroslava Marcano on 09-10-2024 Pap Smear Diagnosis Comment . [facility] Comment on above: NEGATIVE FOR INTRAEP ITHELIAL LESION OR MALIGNANCY.CELLULAR CHANGES ASSOCIATED WITH ATROPHY ARE PRESENT. Service comment (Unsp spec) [Interp]Ordered By: Miroslava Marcano on 09-10-2024 Pap Smear Comment (3) . . [facility] Newspaper Publisher Office Visit Reporton 09-03-2024 Newspaper Publisher Office Visit Report Normal [facility] Surgery Visit Reporton 08-22 Surgery Visit Report Normal [facility] CBC W/Diff, Automatedon 12-0 Absolute Lymph 1.33 X10 3/uL Normal 0.83-4.51 [facility] Comment on above: Performed By: #### L 100.0100, L500.4050 ####[facility] [address], [address] Absolute Neut 3.5 X10 3/uL Normal 2.0-7.7 [facility] Comment on above: Performed By: #### L 100.0100, L500.4050 ####[facility] [address] [place], [address] Basophils/100 WBC (Bld) 0.9 % Normal 0-1 [facility] Comment on above: Performed By: #### L 100.0100, L500.4050 ####[facility] [address] [place], [address] Eosinophils/100 WBC (Bld) 0.4 % Normal 0-5 [facility] Comment on above: Performed By: #### L 100.0100, L500.4050 ####[facility] [address] [place], [address] Erythrocyte distribution width (RBC) [Ratio] 12.2 % Normal 11.6-14.6 [facility] Comment on above: Performed By: #### L 100.0100, L500.4050 ####[facility] [address] [place], [address] Hematocrit (Bld) [Volume fraction] 37.0 % Normal 37-47 [facility] Comment on above: Performed By: #### L 100.0100, L500.4050 ####[facility] [address] [place], [address] Hemoglobin (Bld) [Mass/Vol] 12.5 g/dL Normal 12.0-15.0 [facility] Comment on above: Performed By: #### L 100.0100, L500.4050 ####[facility] [address], [address] IG% 0.200 Normal 0.0-0.9 [facility] Comment on above: Result Comment: IG% - Immature Granulocytes (promyelocytes, myelocytes andmetamyelocytes) > 1% indicates that a LEFT SHIFT is Present. Performed By: #### L 100.0100, L500.4050 ####[facility] [address] [place], [address] Lymphocytes/100 WBC (Bld) 24.8 % Normal 19-41 [facility] Comment on above: Performed By: #### L 100.0100, L500.4050 ####[facility] [address] [place], [address] MCH (RBC) [Entitic mass] 31.3 pg Normal 27.0-32.0 [facility] Comment on above: Performed By: #### L 100.0100, L500.4050 ####[facility] [address] [place], [address] MCHC (RBC) [Mass/Vol] 33.8 g/dL Normal 32-36 [facility] Comment on above: Performed By: #### L 100.0100, L500.4050 ####[facility] [address] [place], [address] MCV (RBC) [Entitic vol] 92.7 fL Normal 81-99 [facility] Comment on above: Performed By: #### L 100.0100, L500.4050 ####[facility] [address] [place], [address] Monocytes/100 WBC (Bld) 7.8 % Normal 0-10 [facility] Comment on above: Performed By: #### L 100.0100, L500.4050 ####[facility] [address] [place], [address] Neutrophils/100 WBC (Bld) 65.9 % Normal 47-70 [facility] Comment on above: Performed By: #### L 100.0100, L500.4050 ####[facility] [address] [place], [address] Nucleated RBC (Bld) [#/Vol] 0 10*3/uL Normal 0-5 [facility] Comment on above: Performed By: #### L 100.0100, L500.4050 ####[facility] [address] [place], [address] Platelet mean volume (Bld) [Entitic vol] 9.5 fL Normal 6.2-12.0 [facility] Comment on above: Performed By: #### L 100.0100, L500.4050 ####[facility] [address] [place], [address] Platelets (Bld) [#/Vol] 348 10*3/uL Normal 150-450 [facility] Comment on above: Performed By: #### L 100.0100, L500.4050 ####[facility] [address] [place], [address] RBC (Bld) [#/Vol] 3.99 10*6/uL Low 4.2-5.4 [facility] Comment on above: Performed By: #### L 100.0100, L500.4050 ####[facility] [address] [place], [address] RDW SD 41.7 fl Normal 35.1-43.9 [facility] Comment on above: Performed By: #### L 100.0100, L500.4050 ####[facility] [address] [place], [address] WBC (Bld) [#/Vol] 5.4 10*3/uL Normal 4.4-11.0 [facility] Comment on above: Performed By: #### L 100.0100, L500.4050 ####[facility] [address] [place], [address] Comprehensive Metabolic Prof ilon 08-20-2024 Albumin [Mass/Vol] 3.9 g/dL Normal 3.2-5.0 [facility] Comment on above: Performed By: #### L 100.0100, L500.4050 ####[facility] [address], [address] Albumin/Globulin [Mass ratio] 1.1 {ratio} Normal 0.9-2.4 [facility] Comment on above: Performed By: #### L 100.0100, L500.4050 ####[facility] [address] [place], [address] ALK P 88 U/L Normal 45-117 [facility] Comment on above: Performed By: #### L 100.0100, L500.4050 ####[facility] [address] [place], [address] ALT [Catalytic activity/Vol] 22 U/L Normal 13-56 [facility] Comment on above: Performed By: #### L 100.0100, L500.4050 ####[facility] [facility] [address] [place], [address] AST [Catalytic activity/Vol] 22 U/L Normal 15-37 [facility] Comment on above: Performed By: #### L 100.0100, L500.4050 ####[facility] [address] [place], [address] Bilirubin [Mass/Vol] 0.40 mg/dL Normal 0.20-1.00 [facility] Comment on above: Result Comment: For patients on eltrombopag therapy, use of Dimension Equality TBIL is not recommended. Performed By: #### L 100.0100, L500.4050 ####[facility] [address] [place], [address] BUN/CRE 34.7 RATIO High 10-20 [facility] Comment on above: Performed By: #### L 100.0100, L500.4050 ####[facility] [address] [place], [address] CA,Total 9.9 mg/dL Normal 8.5-10.1 [facility] Comment on above: Performed By: #### L 100.0100, L500.4050 ####[facility] [address] [place], [address] Chloride [Moles/Vol] 107 mmol/L Normal 98-107 [facility] Comment on above: Performed By: #### L 100.0100, L500.4050 ####[facility] [address] [place], [address] CO2 [Moles/Vol] 27.0 mmol/L Normal 21.0-32.0 [facility] Comment on above: Performed By: #### L 100.0100, L500.4050 ####[facility] [address] [place], [address] Creatinine [Mass/Vol] 0.52 mg/dL Low 0.55-1.02 [facility] Comment on above: Result Comment: The validity of the calculated GFR GFRAA in patients over70 years has not been determined. Clinical correlation isessential. Performed By: #### L 100.0100, L500.4050 ####[facility] [address] [place], [address] ECRCL 121.86 ml/min Normal [facility] Comment on above: Performed By: #### L 100.0100, L500.4050 ####[facility] [address] [place], [address] EST GFR - AA 157 mL/min Normal >60 [facility] Comment on above: Result Comment: Afri can Afghan GFR Calc Performed By: #### L 100.0100, L500.4050 ####[facility] [address] [place], [address] GAP 5 Normal 5-15 [facility] Comment on above: Performed By: #### L 100.0100, L500.4050 ####[facility] [address] [place], [address] GFR/1.73 sq M.predicted among non-blacks MDRD (S/P/Bld) [Vol rate/Area] 130 mL/min/{1.73_m2} Normal >60 [facility] Comment on above: Result Comment: Non- GFR Calc Performed By: #### L 100.0100, L500.4050 ####[facility] [address] [place], [address] Globulin (S) [Mass/Vol] 3.7 g/dL Normal 2.2-4.2 [facility] Comment on above: Performed By: #### L 100.0100, L500.4050 ####[facility] [address] [place], [address] Glucose [Mass/Vol] 88 mg/dL Normal 74-106 [facility] Comment on above: Performed By: #### L 100.0100, L500.4050 ####[facility] [address] [place], [address] Potassium [Moles/Vol] 3.8 mmol/L Normal 3.5-5.1 [facility] Comment on above: Performed By: #### L 100.0100, L500.4050 ####[facility] [address] [place], [address] Sodium [Moles/Vol] 139 mmol/L Normal 136-145 [facility] Comment on above: Performed By: #### L 100.0100, L500.4050 ####[facility] [address] [place], [address] T PROT 7.6 g/dL Normal 6.4-8.2 [facility] Comment on above: Performed By: #### L 100.0100, L500.4050 ####[facility] [address] [place], [address] Urea nitrogen [Mass/Vol] 18 mg/dL Normal 7-18 [facility] Comment on above: Performed By: #### L 100.0100, L500.4050 ####[facility] [address] [place], [address] End of Treatment Summaryon 1 10-21-2023 End of Treatment Summary Normal [facility] Estimated glomerular filtrat ion rate (GFR) AmericanOrdered By: Renetta Oden on 08-20-2024 Estimated GFR (MDRD) Amer 157 mL/min >60 [facility] Comment on above: GFR Calc Oncology Visit Reporton Oncology Visit Report Normal [facility] Radiation Oncology Visiton 1 10-14-2023 Radiation Oncology Visit Normal [facility] Radiation Oncology Visit Normal [facility] Radiation Oncology Visiton 1 10-08-2023 Radiation Oncology Visit Normal [facility] OT Functional Capacity Evalo n 08-01-2024 OT Functional Capacity Eval Normal [facility] Radiation Oncology Visiton 1 10-01-2023 Radiation Oncology Visit Normal [facility] Radiation Oncology Visiton 1 09-24-2023 Radiation Oncology Visit Normal [facility] Basic Metabolic Profile (BMP )on 07-12-2024 BUN/CRE 30.8 RATIO High 07-01 [facility] Comment on above: Performed By: #### L 500.2500, L501.5200, L100.0100 ####[facility] [address] [place], [address] CA,Total 9.1 mg/dL Normal 8.5-10.1 [facility] Comment on above: Performed By: #### L 500.2500, L501.5200, L100.0100 ####[facility] [address] [place], [address] Chloride [Moles/Vol] 107 mmol/L Normal 98-107 [facility] Comment on above: Performed By: #### L 500.2500, L501.5200, L100.0100 ####[facility] [address] [place], [address] CO2 [Moles/Vol] 26.0 mmol/L Normal 21.0-32.0 [facility] Comment on above: Performed By: #### L 500.2500, L501.5200, L100.0100 ####[facility] [address] [place], [address] Creatinine [Mass/Vol] 0.52 mg/dL Low 0.55-1.02 [facility] Comment on above: Result Comment: The validity of the calculated GFR GFRAA in patients over70 years has not been determined. Clinical correlation isessential. Performed By: #### L 500.2500, L501.5200, L100.0100 ####[facility] [address] [place], [address] ECRCL 121.86 ml/min Normal [facility] Comment on above: Performed By: #### L 500.2500, L501.5200, L100.0100 ####[facility] [address] [place], [address] EST GFR - AA 157 mL/min Normal >60 [facility] Comment on above: Result Comment: Afri can Afghan GFR Calc Performed By: #### L 500.2500, L501.5200, L100.0100 ####[facility] [address] [place], [address] GAP 6 Normal 5-15 [facility] Comment on above: Performed By: #### L 500.2500, L501.5200, L100.0100 ####[facility] [address] [place], [address] GFR/1.73 sq M.predicted among non-blacks MDRD (S/P/Bld) [Vol rate/Area] 130 mL/min/{1.73_m2} Normal >60 [facility] Comment on above: Result Comment: Non- GFR Calc Performed By: #### L 500.2500, L501.5200, L100.0100 ####[facility] [address] [place], [address] Glucose [Mass/Vol] 95 mg/dL Normal 74-106 [facility] Comment on above: Performed By: #### L 500.2500, L501.5200, L100.0100 ####[facility] [address] [place], [address] Potassium [Moles/Vol] 4.1 mmol/L Normal 3.5-5.1 [facility] Comment on above: Performed By: #### L 500.2500, L501.5200, L100.0100 ####[facility] [address] [place], [address] Sodium [Moles/Vol] 139 mmol/L Normal 136-145 [facility] Comment on above: Performed By: #### L 500.2500, L501.5200, L100.0100 ####[facility] [address] [place], [address] Urea nitrogen [Mass/Vol] 16 mg/dL Normal 7-18 [facility] Comment on above: Performed By: #### L 500.2500, L501.5200, L100.0100 ####[facility] [address] [place], [address] CBC W/Diff, Automatedon 10-3 Absolute Lymph 1.41 X10 3/uL Normal 0.83-4.51 [facility] Comment on above: Performed By: #### L 500.2500, L501.5200, L100.0100 ####[facility] [address] [place], [address] Absolute Neut 8.9 X10 3/uL High 2.0-7.7 [facility] Comment on above: Performed By: #### L 500.2500, L501.5200, L100.0100 ####[facility] [address] [place], [address] Basophils/100 WBC (Bld) 1.2 % High 0-1 [facility] Comment on above: Performed By: #### L 500.2500, L501.5200, L100.0100 ####[facility] [address] [place], [address] Eosinophils/100 WBC (Bld) 0.5 % Normal 0-5 [facility] Comment on above: Performed By: #### L 500.2500, L501.5200, L100.0100 ####[facility] [address] [place], [address] Erythrocyte distribution width (RBC) [Ratio] 12.8 % Normal 11.6-14.6 [facility] Comment on above: Performed By: #### L 500.2500, L501.5200, L100.0100 ####[facility] [address] [place], [address] Hematocrit (Bld) [Volume fraction] 35.6 % Low 37-47 [facility] Comment on above: Performed By: #### L 500.2500, L501.5200, L100.0100 ####[facility] [address] [place], [address] Hemoglobin (Bld) [Mass/Vol] 11.8 g/dL Low 12.0-15.0 [facility] Comment on above: Performed By: #### L 500.2500, L501.5200, L100.0100 ####[facility] [address] [place], [address] IG% 0.500 Normal 0.0-0.9 [facility] Comment on above: Result Comment: IG% - Immature Granulocytes (promyelocytes, myelocytes andmetamyelocytes) > 1% indicates that a LEFT SHIFT is Present. Performed By: #### L 500.2500, L501.5200, L100.0100 ####[facility] [address] [place], [address] Lymphocytes/100 WBC (Bld) 12.5 % Low 19-41 [facility] Comment on above: Performed By: #### L 500.2500, L501.5200, L100.0100 ####[facility] [address] [place], [address] MCH (RBC) [Entitic mass] 31.9 pg Normal 27.0-32.0 [facility] Comment on above: Performed By: #### L 500.2500, L501.5200, L100.0100 ####[facility] [address] [place], [address] MCHC (RBC) [Mass/Vol] 33.1 g/dL Normal 32-36 [facility] Comment on above: Performed By: #### L 500.2500, L501.5200, L100.0100 ####[facility] [address] [place], [address] MCV (RBC) [Entitic vol] 96.2 fL Normal 81-99 [facility] Comment on above: Performed By: #### L 500.2500, L501.5200, L100.0100 ####[facility] [address] [place], [address] Monocytes/100 WBC (Bld) 5.9 % Normal 0-10 [facility] Comment on above: Performed By: #### L 500.2500, L501.5200, L100.0100 ####[facility] [address] [place], [address] Neutrophils/100 WBC (Bld) 79.4 % High 47-70 [facility] Comment on above: Performed By: #### L 500.2500, L501.5200, L100.0100 ####[facility] [address] [place], [address] Nucleated RBC (Bld) [#/Vol] 0 10*3/uL Normal 0-5 [facility] Comment on above: Performed By: #### L 500.2500, L501.5200, L100.0100 ####[facility] [address] [place], [address] Platelet mean volume (Bld) [Entitic vol] 9.7 fL Normal 6.2-12.0 [facility] Comment on above: Performed By: #### L 500.2500, L501.5200, L100.0100 ####[facility] [address] [place], [address] Platelets (Bld) [#/Vol] 429 10*3/uL Normal 150-450 [facility] Comment on above: Performed By: #### L 500.2500, L501.5200, L100.0100 ####[facility] [address] [place], [address] RBC (Bld) [#/Vol] 3.70 10*6/uL Low 4.2-5.4 [facility] Comment on above: Performed By: #### L 500.2500, L501.5200, L100.0100 ####[facility] [address] [place], [address] RDW SD 45.2 fl High 35.1-43.9 [facility] Comment on above: Performed By: #### L 500.2500, L501.5200, L100.0100 ####[facility] [address] [place], [address] WBC (Bld) [#/Vol] 11.3 10*3/uL High 4.4-11.0 [facility] Comment on above: Performed By: #### L 500.2500, L501.5200, L100.0100 ####[facility] [address] [place], [address] Magnesiumon 07-12-2024 Magnesium [Mass/Vol] 2.1 mg/dL Normal 1.6-2.6 [facility] Comment on above: Performed By: #### L 500.2500, L501.5200, L100.0100 ####[facility] [address] [place], [address] Magnesium measurementOrdered By: Renetta Oden on 07-12-2024 Magnesium [Mass/Vol] 2.1 mg/dL 1.6-2.6 [facility] Oncology Visit Reporton 06-14 Oncology Visit Report Normal [facility] Radiation Oncology Visiton 1 Radiation Oncology Visit Normal [facility] Urine Cultureon 06-29-2024 URC Culture exhibits no growth. Normal [facility] Comment on above: Performed By: #### L 400.0001, M100.2200 ####[facility] [address] [place], [address] Bilirubin Test strip Ql (U)O rdered By: Renetta Oden on 06-28-2024 Bilirubin Ql (U) Negative Negative [facility] CBC W/Diff, Automatedon 06-12 Absolute Lymph 0.86 X10 3/uL Normal 0.83-4.51 [facility] Comment on above: Performed By: #### L 500.4050, L100.0100, L501.2300 ####[facility] [address] [place], [address] Absolute Neut 5.5 X10 3/uL Normal 2.0-7.7 [facility] Comment on above: Performed By: #### L 500.4050, L100.0100, L501.2300 ####[facility] [address] [place], [address] Basophils/100 WBC (Bld) 0.1 % Normal 0-1 [facility] Comment on above: Performed By: #### L 500.4050, L100.0100, L501.2300 ####[facility] [address] [place], [address] Eosinophils/100 WBC (Bld) 0.0 % Normal 0-5 [facility] Comment on above: Performed By: #### L 500.4050, L100.0100, L501.2300 ####[facility] [address] [place], [address] Erythrocyte distribution width (RBC) [Ratio] 13.2 % Normal 11.6-14.6 [facility] Comment on above: Performed By: #### L 500.4050, L100.0100, L501.2300 ####[facility] [address] [place], [address] Hematocrit (Bld) [Volume fraction] 34.9 % Low 37-47 [facility] Comment on above: Performed By: #### L 500.4050, L100.0100, L501.2300 ####[facility] [address] [place], [address] Hemoglobin (Bld) [Mass/Vol] 11.4 g/dL Low 12.0-15.0 [facility] Comment on above: Performed By: #### L 500.4050, L100.0100, L501.2300 ####[facility] [address], [address] IG% 0.300 Normal 0.0-0.9 [facility] Comment on above: Result Comment: IG% - Immature Granulocytes (promyelocytes, myelocytes andmetamyelocytes) > 1% indicates that a LEFT SHIFT is Present. Performed By: #### L 500.4050, L100.0100, L501.2300 ####[facility] [address] [place], [address] Lymphocytes/100 WBC (Bld) 12.8 % Low 19-41 [facility] Comment on above: Performed By: #### L 500.4050, L100.0100, L501.2300 ####[facility] [address] [place], [address] MCH (RBC) [Entitic mass] 31.8 pg Normal 27.0-32.0 [facility] Comment on above: Performed By: #### L 500.4050, L100.0100, L501.2300 ####[facility] [address] [place], [address] MCHC (RBC) [Mass/Vol] 32.7 g/dL Normal 32-36 [facility] Comment on above: Performed By: #### L 500.4050, L100.0100, L501.2300 ####[facility] [address] [place], [address] MCV (RBC) [Entitic vol] 97.2 fL Normal 81-99 [facility] Comment on above: Performed By: #### L 500.4050, L100.0100, L501.2300 ####[facility] [address] [place], [address] Monocytes/100 WBC (Bld) 4.9 % Normal 0-10 [facility] Comment on above: Performed By: #### L 500.4050, L100.0100, L501.2300 ####[facility] [address] [place], [address] Neutrophils/100 WBC (Bld) 81.9 % High 47-70 [facility] Comment on above: Performed By: #### L 500.4050, L100.0100, L501.2300 ####[facility] [address] [place], [address] Nucleated RBC (Bld) [#/Vol] 0 10*3/uL Normal 0-5 [facility] Comment on above: Performed By: #### L 500.4050, L100.0100, L501.2300 ####[facility] [address] [place], [address] Platelet mean volume (Bld) [Entitic vol] 9.3 fL Normal 6.2-12.0 [facility] Comment on above: Performed By: #### L 500.4050, L100.0100, L501.2300 ####[facility] [address] [place], [address] Platelets (Bld) [#/Vol] 431 10*3/uL Normal 150-450 [facility] Comment on above: Performed By: #### L 500.4050, L100.0100, L501.2300 ####[facility] [address] [place], [address] RBC (Bld) [#/Vol] 3.59 10*6/uL Low 4.2-5.4 [facility] Comment on above: Performed By: #### L 500.4050, L100.0100, L501.2300 ####[facility] [address] [place], [address] RDW SD 47.7 fl High 35.1-43.9 [facility] Comment on above: Performed By: #### L 500.4050, L100.0100, L501.2300 ####[facility] [address] [place], [address] WBC (Bld) [#/Vol] 6.7 10*3/uL Normal 4.4-11.0 [facility] Comment on above: Performed By: #### L 500.4050, L100.0100, L501.2300 ####[facility] [address] [place], [address] Comprehensive Metabolic Prof ilon 06-28-2024 Albumin [Mass/Vol] 3.6 g/dL Normal 3.2-5.0 [facility] Comment on above: Performed By: #### L 500.4050, L100.0100, L501.2300 ####[facility] [address] [place], [address] Albumin/Globulin [Mass ratio] 0.9 {ratio} Normal 0.9-2.4 [facility] Comment on above: Performed By: #### L 500.4050, L100.0100, L501.2300 ####[facility] [address] [place], [address] ALK P 103 U/L Normal 45-117 [facility] Comment on above: Performed By: #### L 500.4050, L100.0100, L501.2300 ####[facility] [address] [place], [address] ALT [Catalytic activity/Vol] 17 U/L Normal 13-56 [facility] Comment on above: Performed By: #### L 500.4050, L100.0100, L501.2300 ####[facility] [address] [place], [address] AST [Catalytic activity/Vol] 16 U/L Normal 15-37 [facility] Comment on above: Performed By: #### L 500.4050, L100.0100, L501.2300 ####[facility] [address] [place], [address] Bilirubin [Mass/Vol] 0.20 mg/dL Normal 0.20-1.00 [facility] Comment on above: Result Comment: For patients on eltrombopag therapy, use of Dimension Equality TBIL is not recommended. Performed By: #### L 500.4050, L100.0100, L501.2300 ####[facility] [address] [place], [address] BUN/CRE 44.9 RATIO High 10-20 [facility] Comment on above: Performed By: #### L 500.4050, L100.0100, L501.2300 ####[facility] [address] [place], [address] CA,Total 9.3 mg/dL Normal 8.5-10.1 [facility] Comment on above: Performed By: #### L 500.4050, L100.0100, L501.2300 ####[facility] [address] [place], [address] Chloride [Moles/Vol] 112 mmol/L High 98-107 [facility] Comment on above: Performed By: #### L 500.4050, L100.0100, L501.2300 ####[facility] [address] [place], [address] CO2 [Moles/Vol] 23.0 mmol/L Normal 21.0-32.0 [facility] Comment on above: Performed By: #### L 500.4050, L100.0100, L501.2300 ####[facility] [address] [place], [address] Creatinine [Mass/Vol] 0.51 mg/dL Low 0.55-1.02 [facility] Comment on above: Result Comment: The validity of the calculated GFR GFRAA in patients over70 years has not been determined. Clinical correlation isessential. Performed By: #### L 500.4050, L100.0100, L501.2300 ####[facility] [address] [place], [address] ECRCL 124.25 ml/min Normal [facility] Comment on above: Performed By: #### L 500.4050, L100.0100, L501.2300 ####[facility] [address] [place], [address] EST GFR - AA 160 mL/min Normal >60 [facility] Comment on above: Result Comment: Afri can Afghan GFR Calc Performed By: #### L 500.4050, L100.0100, L501.2300 ####[facility] [address] [place], [address] GAP 6 Normal 5-15 [facility] Comment on above: Performed By: #### L 500.4050, L100.0100, L501.2300 ####[facility] [address] [place], [address] GFR/1.73 sq M.predicted among non-blacks MDRD (S/P/Bld) [Vol rate/Area] 132 mL/min/{1.73_m2} Normal >60 [facility] Comment on above: Result Comment: Non- GFR Calc Performed By: #### L 500.4050, L100.0100, L501.2300 ####[facility] [address] [place], [address] Globulin (S) [Mass/Vol] 3.8 g/dL Normal 2.2-4.2 [facility] Comment on above: Performed By: #### L 500.4050, L100.0100, L501.2300 ####[facility] [address] [place], [address] Glucose [Mass/Vol] 107 mg/dL High 74-106 [facility] Comment on above: Result Comment: Fast ing Glucose result from 100 to 125 mg/dLsuggests IMPAIRED HOMEOSTASIS per A.D.A. criteria. Performed By: #### L 500.4050, L100.0100, L501.2300 ####[facility] [address] [place], [address] Potassium [Moles/Vol] 3.9 mmol/L Normal 3.5-5.1 [facility] Comment on above: Performed By: #### L 500.4050, L100.0100, L501.2300 ####[facility] [address] [place], [address] Sodium [Moles/Vol] 142 mmol/L Normal 136-145 [facility] Comment on above: Performed By: #### L 500.4050, L100.0100, L501.2300 ####[facility] [address] [place], [address] T PROT 7.4 g/dL Normal 6.4-8.2 [facility] Comment on above: Performed By: #### L 500.4050, L100.0100, L501.2300 ####[facility] [address] [place], [address] Urea nitrogen [Mass/Vol] 23 mg/dL High 7-18 [facility] Comment on above: Performed By: #### L 500.4050, L100.0100, L501.2300 ####[facility] [address] [place], [address] Epithelial cells.squamous LM Ql (Urine sed)Ordered By: Renetta Oden on 06-28-2024 Epithelial cells.squamous LM.HPF (Urine sed) [#/Area] 0 /[HPF] 5-10 [facility] Glucose Ql (U)Ordered By: Gage Oden on 06-28-2024 Urine Glucose (UA) Normal mg/dl Normal [facility] Ketones Test strip Ql (U)Ord ered By: Renetta Oden on 06-28-2024 Ketones Ql (U) 5 mg/dl High Negative [facility] Microscopic analysis of urin e for red blood cells (RBC)Ordered By: Renetta Oden on 06-28-2024 Microscopic analysis of urine for red blood cells (RBC) 0 SEEN /hpf 0-5 [facility] Urine RBC 0 SEEN /hpf 0-5 [facility] Mucus LM Ql (Urine sed)Order ed By: Renetta Oden on 06-28-2024 Mucus Ql (Urine sed) 0 SEEN /hpf [facility] Nitrite Test strip Ql (U)Ord ered By: Renetta Oden on 06-28-2024 Nitrite Ql (U) Negative Negative [facility] Oncology Visit Reporton 06-12 Oncology Visit Report Normal [facility] Phosphoruson 06-28-2024 Phosphate [Mass/Vol] 3.2 mg/dL Normal 2.5-4.9 [facility] Comment on above: Performed By: #### L 500.4050, L100.0100, L501.2300 ####[facility] [address] [place], [place], [id number] Phosphorus measurementOrdere d By: Barry Arrington on 06-28-2024 Phosphorus Level 3.2 mg/dL 2.5-4.9 [facility] Protein Test strip Ql (U)Ord ered By: Renetta Oden on 06-28-2024 Protein Ql (U) 30 mg/dl High Negative [facility] Squamous epithelial cells de tection in urine sediment by light microscopyOrdered By: Renetta Oden on 06-28-2024 Epithelial cells.squamous LM Ql (Urine sed) 0 SEEN /hpf - [facility] Urinalysis, Completeon 06-28 BACTERIA 0 SEEN Normal None Seen [facility] Comment on above: Order Comment: CHARLINE SALINASOR TO SPECIFY Performed By: #### L 400.0001, M100.2200 ####[facility] [address] [place], [place], [id number] EPI,SQUAMOUS 0 SEEN Normal - [facility] Comment on above: Order Comment: COLLE CTOR TO SPECIFY Performed By: #### L 400.0001, M100.2200 ####[facility] [address] [place], [address] Mucus Ql (Urine sed) 0 SEEN Normal [facility] Comment on above: Order Comment: COLLE CTOR TO SPECIFY Performed By: #### L 400.0001, M100.2200 ####[facility] [address] [place], [address] RBC 0 SEEN Normal 0-5 [facility] Comment on above: Order Comment: CHARLINE CTOR TO SPECIFY Performed By: #### L 400.0001, M100.2200 ####[facility] [address] [place], [address] WBC 0 SEEN Normal 0-5 [facility] Comment on above: Order Comment: CHARLINE CTOR TO SPECIFY Performed By: #### L 400.0001, M1.0 ####[facility] [address] [place], [address] Urine blood detectionOrdered By: Renetta Oden on 06-28-2024 Urine Occult Blood 25 /ul High Negative [facility] Urine clarityOrdered By: Shelly Oden on 06-28-2024 Clarity (U) Clear Clear [facility] Urine color determinationOrd ered By: Renetta Oden on 06-28-2024 Color (U) Yellow Yellow [facility] Urine cultureOrdered By: Shelly Oden on 06-28-2024 Bacteria identified Cx Nom (U) Culture exhibits no growth. [facility] Urine glucose detectionOrder ed By: Renetta Oden on 06-28-2024 Glucose Ql (U) Normal mg/dl Normal [facility] Urine leukocyte esterase det ection by dipstickOrdered By: Renetta Oden on 06-28-2024 Leukocyte esterase Test strip Ql (U) 25 /ul High Negative [facility] Urine pHOrdered By: Renetta keith on 06-28-2024 pH (U) 6.0 [pH] 5.0 - 8.0 [facility] Urine sediment bacteria coun t by microscopy (number/high power field)Ordered By: Renetta Oden on 06-28-2024 Bacteria LM.HPF (Urine sed) [#/Area] 0 /[HPF] None Seen [facility] Urine specific gravity measu rementOrdered By: Renetta Oden on 06-28-2024 Specific gravity (U) [Rel density] 1.025 1.002-1.030 [facility] Urine urobilinogen measureme ntOrdered By: Renetta Oden on 06-28-2024 Urobilinogen Ql (U) 1 mg/dl High Normal [facility] Urobilinogen Ql (U)Ordered B y: Renetta Akshat on 06-28-2024 Urobilinogen (U) [Mass/Vol] 1 mg/dL High Normal [facility] White blood cell countOrdere d By: Renetta Oden on 06-28-2024 Urine WBC 0 SEEN /hpf 0-5 [facility] White blood cell count 0 SEEN /hpf 0-5 [facility] CBC W/Diff, Automatedon 06-12 Absolute Neut Normal 2.0-7.7 [facility] Comment on above: Result Comment: Canc elled via OM: Patient Ill Performed By: #### L 500.4050, L100.0100 ####[facility] [address] [place], [address] HCT Normal 37-47 [facility] Comment on above: Result Comment: Canc elled via OM: Patient Ill Performed By: #### L 500.4050, L100.0100 ####[facility] [address] [place], [address] HGB Normal 12.0-15.0 [facility] Comment on above: Result Comment: Canc elled via OM: Patient Ill Performed By: #### L 500.4050, L100.0100 ####[facility] [address] [place], [address] MCH Normal 27.0-32.0 [facility] Comment on above: Result Comment: Canc elled via OM: Patient Ill Performed By: #### L 500.4050, L100.0100 ####[facility] [address] [place], [address] MCHC Normal 32-36 [facility] Comment on above: Result Comment: Canc elled via OM: Patient Ill Performed By: #### L 500.4050, L100.0100 ####[facility] [address] [place], [address] MCV Normal 81-99 [facility] Comment on above: Result Comment: Canc elled via OM: Patient Ill Performed By: #### L 500.4050, L100.0100 ####[facility] [address] [place], [address] NEUT% Normal 47-70 [facility] Comment on above: Result Comment: Canc elled via OM: Patient Ill Performed By: #### L 500.4050, L100.0100 ####[facility] [address] [place], [address] PLT Normal 150-450 [facility] Comment on above: Result Comment: Canc elled via OM: Patient Ill Performed By: #### L 500.4050, L100.0100 ####[facility] [address] [place], [address] RBC Normal 4.2-5.4 [facility] Comment on above: Result Comment: Canc elled via OM: Patient Ill Performed By: #### L 500.4050, L100.0100 ####[facility] [address] [place], [address] RDW CV Normal 11.6-14.6 [facility] Comment on above: Result Comment: Canc elled via OM: Patient Ill Performed By: #### L 500.4050, L100.0100 ####[facility] [address] [place], [address] RDW SD Normal 35.1-43.9 [facility] Comment on above: Result Comment: Canc elled via OM: Patient Ill Performed By: #### L 500.4050, L100.0100 ####[facility] [address] [place], [address] WBC Normal 4.4-11.0 [facility] Comment on above: Result Comment: Canc elled via OM: Patient Ill Performed By: #### L 500.4050, L100.0100 ####[facility] [address] [place], [address] Comprehensive Metabolic Prof ilon 06-21-2024 ALB Normal 3.2-5.0 [facility] Comment on above: Result Comment: Canc elled via OM: Patient Ill Performed By: #### L 500.4050, L100.0100 ####[facility] [address] [place], [address] ALK P Normal 45-117 [facility] Comment on above: Result Comment: Canc elled via OM: Patient Ill Performed By: #### L 500.4050, L100.0100 ####[facility] [address] [place], [address] ALT Normal 13-56 [facility] Comment on above: Result Comment: Canc elled via OM: Patient Ill Performed By: #### L 500.4050, L100.0100 ####[facility] [address] [place], [address] AST Normal 15-37 [facility] Comment on above: Result Comment: Canc elled via OM: Patient Ill Performed By: #### L 500.4050, L100.0100 ####[facility] [address] [place], [address] BUN Normal 7-18 [facility] Comment on above: Result Comment: Canc elled via OM: Patient Ill Performed By: #### L 500.4050, L100.0100 ####[facility] [address] [place], [address] BUN/CRE Normal 10-20 [facility] Comment on above: Result Comment: Canc elled via OM: Patient Ill Performed By: #### L 500.4050, L100.0100 ####[facility] [address] [place], [address] CA,Total Normal 8.5-10.1 [facility] Comment on above: Result Comment: Canc elled via OM: Patient Ill Performed By: #### L 500.4050, L100.0100 ####[facility] [address] [place], [address] CL Normal 98-107 [facility] Comment on above: Result Comment: Canc elled via OM: Patient Ill Performed By: #### L 500.4050, L100.0100 ####[facility] [address] [place], [address] CO2 Normal 21.0-32.0 [facility] Comment on above: Result Comment: Canc elled via OM: Patient Ill Performed By: #### L 500.4050, L100.0100 ####[facility] [address] [place], [address] CREAT,SERUM Normal 0.55-1.02 [facility] Comment on above: Result Comment: Canc elled via OM: Patient Ill Performed By: #### L 500.4050, L100.0100 ####[facility] [address] [place], [address] EST GFR Normal >60 [facility] Comment on above: Result Comment: Canc elled via OM: Patient Ill Performed By: #### L 500.4050, L100.0100 ####[facility] [address] [place], [address] EST GFR - AA Normal >60 [facility] Comment on above: Result Comment: Canc elled via OM: Patient Ill Performed By: #### L 500.4050, L100.0100 ####[facility] [address] [place], [address] GAP Normal 5-15 [facility] Comment on above: Result Comment: Canc elled via OM: Patient Ill Performed By: #### L 500.4050, L100.0100 ####[facility] [address] [place], [address] GLU Normal 74-106 [facility] Comment on above: Result Comment: Canc elled via OM: Patient Ill Performed By: #### L 500.4050, L100.0100 ####[facility] [address] [place], [address] Potassium Normal 3.5-5.1 [facility] Comment on above: Result Comment: Canc elled via OM: Patient Ill Performed By: #### L 500.4050, L100.0100 ####[facility] [address] [place], [address] T BILI Normal 0.20-1.00 [facility] Comment on above: Result Comment: Canc elled via OM: Patient Ill Performed By: #### L 500.4050, L100.0100 ####[facility] [address] [place], [address] T PROT Normal 6.4-8.2 [facility] Comment on above: Result Comment: Canc elled via OM: Patient Ill Performed By: #### L 500.4050, L100.0100 ####[facility] [address] [place], [address] Comprehensive Metabolic Profil Normal 136-145 [facility] Comment on above: Result Comment: Canc elled via OM: Patient Ill Performed By: #### L 500.4050, L100.0100 ####[facility] [address] [place], [address] CBC W/Diff, Automatedon 09- Absolute Lymph 0.65 X10 3/uL Low 0.83-4.51 [facility] Comment on above: Performed By: #### L 100.0100, L500.4050, L501.2300 ####[facility] [address] [place], [address] Absolute Neut 7.1 X10 3/uL Normal 2.0-7.7 [facility] Comment on above: Performed By: #### L 100.0100, L500.4050, L501.2300 ####[facility] [address] [place], [address] Basophils/100 WBC (Bld) 0.1 % Normal 0-1 [facility] Comment on above: Performed By: #### L 100.0100, L500.4050, L501.2300 ####[facility] [address] [place], [address] Eosinophils/100 WBC (Bld) 0.0 % Normal 0-5 [facility] Comment on above: Performed By: #### L 100.0100, L500.4050, L501.2300 ####[facility] [address] [place], [address] Erythrocyte distribution width (RBC) [Ratio] 14.0 % Normal 11.6-14.6 [facility] Comment on above: Performed By: #### L 100.0100, L500.4050, L501.2300 ####[facility] [address] [place], [address] Hematocrit (Bld) [Volume fraction] 33.8 % Low 37-47 [facility] Comment on above: Performed By: #### L 100.0100, L500.4050, L501.2300 ####[facility] [address] [place], [address] Hemoglobin (Bld) [Mass/Vol] 11.2 g/dL Low 12.0-15.0 [facility] Comment on above: Performed By: #### L 100.0100, L500.4050, L501.2300 ####[facility] [address] [place], [address] IG% 0.600 Normal 0.0-0.9 [facility] Comment on above: Result Comment: IG% - Immature Granulocytes (promyelocytes, myelocytes andmetamyelocytes) > 1% indicates that a LEFT SHIFT is Present. Performed By: #### L 100.0100, L500.4050, L501.2300 ####[facility] [address] [place], [address] Lymphocytes/100 WBC (Bld) 8.2 % Low 19-41 [facility] Comment on above: Performed By: #### L 100.0100, L500.4050, L501.2300 ####[facility] [address] [place], [address] MCH (RBC) [Entitic mass] 31.5 pg Normal 27.0-32.0 [facility] Comment on above: Performed By: #### L 100.0100, L500.4050, L501.2300 ####[facility] [address] [place], [address] MCHC (RBC) [Mass/Vol] 33.1 g/dL Normal 32-36 [facility] Comment on above: Performed By: #### L 100.0100, L500.4050, L501.2300 ####[facility] [address] [place], [address] MCV (RBC) [Entitic vol] 95.2 fL Normal 81-99 [facility] Comment on above: Performed By: #### L 100.0100, L500.4050, L501.2300 ####[facility] [address] [place], [address] Monocytes/100 WBC (Bld) 2.1 % Normal 0-10 [facility] Comment on above: Performed By: #### L 100.0100, L500.4050, L501.2300 ####[facility] [address] [place], [address] Neutrophils/100 WBC (Bld) 89.0 % High 47-70 [facility] Comment on above: Performed By: #### L 100.0100, L500.4050, L501.2300 ####[facility] [address] [place], [address] Nucleated RBC (Bld) [#/Vol] 0 10*3/uL Normal 0-5 [facility] Comment on above: Performed By: #### L 100.0100, L500.4050, L501.2300 ####[facility] [address] [place], [address] Platelet mean volume (Bld) [Entitic vol] 9.6 fL Normal 6.2-12.0 [facility] Comment on above: Performed By: #### L 100.0100, L500.4050, L501.2300 ####[facility] [address] [place], [address] Platelets (Bld) [#/Vol] 541 10*3/uL High 150-450 [facility] Comment on above: Performed By: #### L 100.0100, L500.4050, L501.2300 ####[facility] [address] [place], [address] RBC (Bld) [#/Vol] 3.55 10*6/uL Low 4.2-5.4 [facility] Comment on above: Performed By: #### L 100.0100, L500.4050, L501.2300 ####[facility] [address] [place], [address] RDW SD 48.5 fl High 35.1-43.9 [facility] Comment on above: Performed By: #### L 100.0100, L500.4050, L501.2300 ####[facility] [address] [place], [address] WBC (Bld) [#/Vol] 8.0 10*3/uL Normal 4.4-11.0 [facility] Comment on above: Performed By: #### L 100.0100, L500.4050, L501.2300 ####[facility] [address] [place], [address] Comprehensive Metabolic Prof [facility] 05-31-2024 Albumin [Mass/Vol] 3.7 g/dL Normal 3.2-5.0 [facility] Comment on above: Performed By: #### L 100.0100, L500.4050, L501.2300 ####[facility] [address] [place], [address] Albumin/Globulin [Mass ratio] 1.0 {ratio} Normal 0.9-2.4 [facility] Comment on above: Performed By: #### L 100.0100, L500.4050, L501.2300 ####[facility] [address] [place], [address] ALK P 101 U/L Normal 45-117 [facility] Comment on above: Performed By: #### L 100.0100, L500.4050, L501.2300 ####[facility] [address] [place], [address] ALT [Catalytic activity/Vol] 24 U/L Normal 13-56 [facility] Comment on above: Performed By: #### L 100.0100, L500.4050, L501.2300 ####[facility] [address] [place], [address] AST [Catalytic activity/Vol] 21 U/L Normal 15-37 [facility] Comment on above: Performed By: #### L 100.0100, L500.4050, L501.2300 ####[facility] [address] [place], [address] Bilirubin [Mass/Vol] 0.40 mg/dL Normal 0.20-1.00 [facility] Comment on above: Result Comment: For patients on eltrombopag therapy, use of Dimension Equality TBIL is not recommended. Performed By: #### L 100.0100, L500.4050, L501.2300 ####[facility] [address] [place], [address] BUN/CRE 35.0 RATIO High 10-20 [facility] Comment on above: Performed By: #### L 100.0100, L500.4050, L501.2300 ####[facility] [address] [place], [address] CA,Total 9.5 mg/dL Normal 8.5-10.1 [facility] Comment on above: Performed By: #### L 100.0100, L500.4050, L501.2300 ####[facility] [address] [place], [address] Chloride [Moles/Vol] 109 mmol/L High 98-107 [facility] Comment on above: Performed By: #### L 100.0100, L500.4050, L501.2300 ####[facility] [address] [place], [address] CO2 [Moles/Vol] 24.0 mmol/L Normal 21.0-32.0 [facility] Comment on above: Performed By: #### L 100.0100, L500.4050, L501.2300 ####[facility] [address] [place], [address] Creatinine [Mass/Vol] 0.60 mg/dL Normal 0.55-1.02 [facility] Comment on above: Result Comment: The validity of the calculated GFR GFRAA in patients over70 years has not been determined. Clinical correlation isessential. Performed By: #### L 100.0100, L500.4050, L501.2300 ####[facility] [address] [place], [address] ECRCL 105.61 ml/min Normal [facility] Comment on above: Performed By: #### L 100.0100, L500.4050, L501.2300 ####[facility] [address] [place], [address] EST GFR - AA 133 mL/min Normal >60 [facility] Comment on above: Result Comment: Afri can Afghan GFR Calc Performed By: #### L 100.0100, L500.4050, L501.2300 ####[facility] [address] [place], [address] GAP 7 Normal 5-15 [facility] Comment on above: Performed By: #### L 100.0100, L500.4050, L501.2300 ####[facility] [address] [place], [address] GFR/1.73 sq M.predicted among non-blacks MDRD (S/P/Bld) [Vol rate/Area] 110 mL/min/{1.73_m2} Normal >60 [facility] Comment on above: Result Comment: Non- GFR Calc Performed By: #### L 100.0100, L500.4050, L501.2300 ####[facility] [address] [place], [address] Globulin (S) [Mass/Vol] 3.6 g/dL Normal 2.2-4.2 [facility] Comment on above: Performed By: #### L 100.0100, L500.4050, L501.2300 ####[facility] [address] [place], [address] Glucose [Mass/Vol] 126 mg/dL High 74-106 [facility] Comment on above: Result Comment: Fast ing Glucose result greater than or equal to 126 mg/dLsuggests DIABETES MELLITUS per A.D.A. criteria. Performed By: #### L 100.0100, L500.4050, L501.2300 ####[facility] [address] [place], [address] Potassium [Moles/Vol] 4.1 mmol/L Normal 3.5-5.1 [facility] Comment on above: Performed By: #### L 100.0100, L500.4050, L501.2300 ####[facility] [address] [place], [address] Sodium [Moles/Vol] 140 mmol/L Normal 136-145 [facility] Comment on above: Performed By: #### L 100.0100, L500.4050, L501.2300 ####[facility] [address] [place], [address] T PROT 7.3 g/dL Normal 6.4-8.2 [facility] Comment on above: Performed By: #### L 100.0100, L500.4050, L501.2300 ####[facility] [address] [place], [address] Urea nitrogen [Mass/Vol] 21 mg/dL High 7-18 [facility] Comment on above: Performed By: #### L 100.0100, L500.4050, L501.2300 ####[facility] [address] [place], [address] Oncology Visit Reporton 05-13 Oncology Visit Report Normal [facility] Phosphoruson 05-31-2024 Phosphate [Mass/Vol] 2.8 mg/dL Normal 2.5-4.9 [facility] Comment on above: Performed By: #### L 100.0100, L500.4050, L501.2300 ####[facility] [address] [place], [address] CBC W/Diff, Automatedon 05-13 Absolute Lymph 1.60 X10 3/uL Normal 0.83-4.51 [facility] Comment on above: Performed By: #### L 500.4050, L100.0100 ####[facility] [address] [place], [address] Absolute Neut 4.2 X10 3/uL Normal 2.0-7.7 [facility] Comment on above: Performed By: #### L 500.4050, L100.0100 ####[facility] [address] [place], [address] Basophils/100 WBC (Bld) 0.8 % Normal 0-1 [facility] Comment on above: Performed By: #### L 500.4050, L100.0100 ####[facility] [address] [place], [address] Eosinophils/100 WBC (Bld) 0.0 % Normal 0-5 [facility] Comment on above: Performed By: #### L 500.4050, L100.0100 ####[facility] [address] [place], [address] Erythrocyte distribution width (RBC) [Ratio] 13.5 % Normal 11.6-14.6 [facility] Comment on above: Performed By: #### L 500.4050, L100.0100 ####[facility] [address] [place], [address] Hematocrit (Bld) [Volume fraction] 35.7 % Low 37-47 [facility] Comment on above: Performed By: #### L 500.4050, L100.0100 ####[facility] [address] [place], [address] Hemoglobin (Bld) [Mass/Vol] 11.5 g/dL Low 12.0-15.0 [facility] Comment on above: Performed By: #### L 500.4050, L100.0100 ####[facility] [address] [place], [address] IG% 0.200 Normal 0.0-0.9 [facility] Comment on above: Result Comment: IG% - Immature Granulocytes (promyelocytes, myelocytes andmetamyelocytes) > 1% indicates that a LEFT SHIFT is Present. Performed By: #### L 500.4050, L100.0100 ####[facility] [address] [place], [address] Lymphocytes/100 WBC (Bld) 25.3 % Normal 19-41 [facility] Comment on above: Performed By: #### L 500.4050, L100.0100 ####[facility] [address] [place], [address] MCH (RBC) [Entitic mass] 30.8 pg Normal 27.0-32.0 [facility] Comment on above: Performed By: #### L 500.4050, L100.0100 ####[facility] [address] [place], [address] MCHC (RBC) [Mass/Vol] 32.2 g/dL Normal 32-36 [facility] Comment on above: Performed By: #### L 500.4050, L100.0100 ####[facility] [address] [place], [address] MCV (RBC) [Entitic vol] 95.7 fL Normal 81-99 [facility] Comment on above: Performed By: #### L 500.4050, L100.0100 ####[facility] [address] [place], [address] Monocytes/100 WBC (Bld) 7.4 % Normal 0-10 [facility] Comment on above: Performed By: #### L 500.4050, L100.0100 ####[facility] [address] [place], [address] Neutrophils/100 WBC (Bld) 66.3 % Normal 47-70 [facility] Comment on above: Performed By: #### L 500.4050, L100.0100 ####[facility] [address] [place], [address] Nucleated RBC (Bld) [#/Vol] 0 10*3/uL Normal 0-5 [facility] Comment on above: Performed By: #### L 500.4050, L100.0100 ####[facility] [address] [place], [address] Platelet mean volume (Bld) [Entitic vol] 10.4 fL Normal 6.2-12.0 [facility] Comment on above: Performed By: #### L 500.4050, L100.0100 ####[facility] [address] [place], [address] Platelets (Bld) [#/Vol] 292 10*3/uL Normal 150-450 [facility] Comment on above: Performed By: #### L 500.4050, L100.0100 ####[facility] [address] [place], [address] RBC (Bld) [#/Vol] 3.73 10*6/uL Low 4.2-5.4 [facility] Comment on above: Performed By: #### L 500.4050, L100.0100 ####[facility] [address] [place], [address] RDW SD 47.2 fl High 35.1-43.9 [facility] Comment on above: Performed By: #### L 500.4050, L100.0100 ####[facility] [address] [place], [address] WBC (Bld) [#/Vol] 6.3 10*3/uL Normal 4.4-11.0 [facility] Comment on above: Performed By: #### L 500.4050, L100.0100 ####[facility] [address] [place], [address] Comprehensive Metabolic Prof [facility] 05-24-2024 Albumin [Mass/Vol] 3.5 g/dL Normal 3.2-5.0 [facility] Comment on above: Performed By: #### L 500.4050, L100.0100 ####[facility] [address] [place], [address] Albumin/Globulin [Mass ratio] 1.0 {ratio} Normal 0.9-2.4 [facility] Comment on above: Performed By: #### L 500.4050, L100.0100 ####[facility] [address] [place], [address] ALK P 112 U/L Normal 45-117 [facility] Comment on above: Performed By: #### L 500.4050, L100.0100 ####[facility] [address] [place], [address] ALT [Catalytic activity/Vol] 35 U/L Normal 13-56 [facility] Comment on above: Performed By: #### L 500.4050, L100.0100 ####[facility] [address] [place], [address] AST [Catalytic activity/Vol] 29 U/L Normal 15-37 [facility] Comment on above: Performed By: #### L 500.4050, L100.0100 ####[facility] [address] [place], [address] Bilirubin [Mass/Vol] 0.30 mg/dL Normal 0.20-1.00 [facility] Comment on above: Result Comment: For patients on eltrombopag therapy, use of Dimension Equality TBIL is not recommended. Performed By: #### L 500.4050, L100.0100 ####[facility] [address] [place], [address] BUN/CRE 34.7 RATIO High 10-20 [facility] Comment on above: Performed By: #### L 500.4050, L100.0100 ####[facility] [address] [place], [address] CA,Total 9.6 mg/dL Normal 8.5-10.1 [facility] Comment on above: Performed By: #### L 500.4050, L100.0100 ####[facility] [address] [place], [address] Chloride [Moles/Vol] 107 mmol/L Normal 98-107 [facility] Comment on above: Performed By: #### L 500.4050, L100.0100 ####[facility] [address] [place], [address] CO2 [Moles/Vol] 27.0 mmol/L Normal 21.0-32.0 [facility] Comment on above: Performed By: #### L 500.4050, L100.0100 ####[facility] [address] [place], [address] Creatinine [Mass/Vol] 0.58 mg/dL Normal 0.55-1.02 [facility] Comment on above: Result Comment: The validity of the calculated GFR GFRAA in patients over70 years has not been determined. Clinical correlation isessential. Performed By: #### L 500.4050, L100.0100 ####[facility] [address] [place], [address] ECRCL 109.25 ml/min Normal [facility] Comment on above: Performed By: #### L 500.4050, L100.0100 ####[facility] [address] [place], [address] EST GFR - AA 139 mL/min Normal >60 [facility] Comment on above: Result Comment: Afri can Afghan GFR Calc Performed By: #### L 500.4050, L100.0100 ####[facility] [address] [place], [address] GAP 5 Normal 5-15 [facility] Comment on above: Performed By: #### L 500.4050, L100.0100 ####[facility] [address] [place], [address] GFR/1.73 sq M.predicted among non-blacks MDRD (S/P/Bld) [Vol rate/Area] 115 mL/min/{1.73_m2} Normal >60 [facility] Comment on above: Result Comment: Non- GFR Calc Performed By: #### L 500.4050, L100.0100 ####[facility] [address] [place], [address] Globulin (S) [Mass/Vol] 3.5 g/dL Normal 2.2-4.2 [facility] Comment on above: Performed By: #### L 500.4050, L100.0100 ####[facility] [address] [place], [address] Glucose [Mass/Vol] 108 mg/dL High 74-106 [facility] Comment on above: Result Comment: Fast ing Glucose result from 100 to 125 mg/dLsuggests IMPAIRED HOMEOSTASIS per A.D.A. criteria. Performed By: #### L 500.4050, L100.0100 ####[facility] [address] [place], [address] Potassium [Moles/Vol] 3.7 mmol/L Normal 3.5-5.1 [facility] Comment on above: Performed By: #### L 500.4050, L100.0100 ####[facility] [address] [place], [address] Sodium [Moles/Vol] 139 mmol/L Normal 136-145 [facility] Comment on above: Performed By: #### L 500.4050, L100.0100 ####[facility] [address] [place], [address] T PROT 7.0 g/dL Normal 6.4-8.2 [facility] Comment on above: Performed By: #### L 500.4050, L100.0100 ####[facility] [address] [place], [address] Urea nitrogen [Mass/Vol] 20 mg/dL High 7-18 [facility] Comment on above: Performed By: #### L 500.4050, L100.0100 ####[facility] [address] [place], [address] Oncology Visit Reporton 05-13 Oncology Visit Report Normal [facility] CBC W/Diff, Automatedon 04-13 Absolute Lymph 0.68 X10 3/uL Low 0.83-4.51 [facility] Comment on above: Performed By: #### L 500.4050, L100.0100, L501.2300 ####[facility] [address] [place], [address] Absolute Neut 5.9 X10 3/uL Normal 2.0-7.7 [facility] Comment on above: Performed By: #### L 500.4050, L100.0100, L501.2300 ####[facility] [address] [place], [address] Basophils/100 WBC (Bld) 0.3 % Normal 0-1 [facility] Comment on above: Performed By: #### L 500.4050, L100.0100, L501.2300 ####[facility] [address] [place], [address] Eosinophils/100 WBC (Bld) 0.0 % Normal 0-5 [facility] Comment on above: Performed By: #### L 500.4050, L100.0100, L501.2300 ####[facility] [address] [place], [address] Erythrocyte distribution width (RBC) [Ratio] 13.5 % Normal 11.6-14.6 [facility] Comment on above: Performed By: #### L 500.4050, L100.0100, L501.2300 ####[facility] [address] [place], [address] Hematocrit (Bld) [Volume fraction] 33.9 % Low 37-47 [facility] Comment on above: Performed By: #### L 500.4050, L100.0100, L501.2300 ####[facility] [address] [place], [address] Hemoglobin (Bld) [Mass/Vol] 11.3 g/dL Low 12.0-15.0 [facility] Comment on above: Performed By: #### L 500.4050, L100.0100, L501.2300 ####[facility] [address] [place], [address] IG% 0.400 Normal 0.0-0.9 [facility] Comment on above: Result Comment: IG% - Immature Granulocytes (promyelocytes, myelocytes andmetamyelocytes) > 1% indicates that a LEFT SHIFT is Present. Performed By: #### L 500.4050, L100.0100, L501.2300 ####[facility] [address] [place], [address] Lymphocytes/100 WBC (Bld) 9.7 % Low 19-41 [facility] Comment on above: Performed By: #### L 500.4050, L100.0100, L501.2300 ####[facility] [address] [place], [address] MCH (RBC) [Entitic mass] 31.5 pg Normal 27.0-32.0 [facility] Comment on above: Performed By: #### L 500.4050, L100.0100, L501.2300 ####[facility] [address] [place], [address] MCHC (RBC) [Mass/Vol] 33.3 g/dL Normal 32-36 [facility] Comment on above: Performed By: #### L 500.4050, L100.0100, L501.2300 ####[facility] [address] [place], [address] MCV (RBC) [Entitic vol] 94.4 fL Normal 81-99 [facility] Comment on above: Performed By: #### L 500.4050, L100.0100, L501.2300 ####[facility] [address] [place], [address] Monocytes/100 WBC (Bld) 5.0 % Normal 0-10 [facility] Comment on above: Performed By: #### L 500.4050, L100.0100, L501.2300 ####[facility] [address] [place], [address] Neutrophils/100 WBC (Bld) 84.6 % High 47-70 [facility] Comment on above: Performed By: #### L 500.4050, L100.0100, L501.2300 ####[facility] [address] [place], [address] Nucleated RBC (Bld) [#/Vol] 0 10*3/uL Normal 0-5 [facility] Comment on above: Performed By: #### L 500.4050, L100.0100, L501.2300 ####[facility] [address] [place], [address] Platelet mean volume (Bld) [Entitic vol] 9.4 fL Normal 6.2-12.0 [facility] Comment on above: Performed By: #### L 500.4050, L100.0100, L501.2300 ####[facility] [address] [place], [address] Platelets (Bld) [#/Vol] 685 10*3/uL High 150-450 [facility] Comment on above: Performed By: #### L 500.4050, L100.0100, L501.2300 ####[facility] [address] [place], [address] RBC (Bld) [#/Vol] 3.59 10*6/uL Low 4.2-5.4 [facility] Comment on above: Performed By: #### L 500.4050, L100.0100, L501.2300 ####[facility] [address] [place], [address] RDW SD 46.3 fl High 35.1-43.9 [facility] Comment on above: Performed By: #### L 500.4050, L100.0100, L501.2300 ####[facility] [address] [place], [address] WBC (Bld) [#/Vol] 7.0 10*3/uL Normal 4.4-11.0 [facility] Comment on above: Performed By: #### L 500.4050, L100.0100, L501.2300 ####[facility] [address] [place], [address] Comprehensive Metabolic Prof [facility] 05-10-2024 Albumin [Mass/Vol] 3.8 g/dL Normal 3.2-5.0 [facility] Comment on above: Performed By: #### L 500.4050, L100.0100, L501.2300 ####[facility] [address] [place], [address] Albumin/Globulin [Mass ratio] 1.0 {ratio} Normal 0.9-2.4 [facility] Comment on above: Performed By: #### L 500.4050, L100.0100, L501.2300 ####[facility] [address] [place], [address] ALK P 99 U/L Normal 45-117 [facility] Comment on above: Performed By: #### L 500.4050, L100.0100, L501.2300 ####[facility] [address] [place], [address] ALT [Catalytic activity/Vol] 22 U/L Normal 13-56 [facility] Comment on above: Performed By: #### L 500.4050, L100.0100, L501.2300 ####[facility] [address] [place], [address] AST [Catalytic activity/Vol] 23 U/L Normal 15-37 [facility] Comment on above: Performed By: #### L 500.4050, L100.0100, [id number] ####[facility] [address] [place], [address] Bilirubin [Mass/Vol] 0.50 mg/dL Normal 0.20-1.00 [facility] Comment on above: Result Comment: For patients on eltrombopag therapy, use of Dimension Equality TBIL is not recommended. Performed By: #### L 500.4050, L100.0100, L501.2300 ####[facility] [address] [place], [address] BUN/CRE 29.5 RATIO High 10-20 [facility] Comment on above: Performed By: #### L 500.4050, L100.0100, L501.2300 ####[facility] [address] [place], [address] CA,Total 9.8 mg/dL Normal 8.5-10.1 [facility] Comment on above: Performed By: #### L 500.4050, L100.0100, L501.2300 ####[facility] [address] [place], [address] Chloride [Moles/Vol] 109 mmol/L High 98-107 [facility] Comment on above: Performed By: #### L 500.4050, L100.0100, L501.2300 ####[facility] [address] [place], [address] CO2 [Moles/Vol] 24.0 mmol/L Normal 21.0-32.0 [facility] Comment on above: Performed By: #### L 500.4050, L100.0100, L501.2300 ####[facility] [address] [place], [address] Creatinine [Mass/Vol] 0.61 mg/dL Normal 0.55-1.02 [facility] Comment on above: Result Comment: The validity of the calculated GFR GFRAA in patients over70 years has not been determined. Clinical correlation isessential. Performed By: #### L 500.4050, L100.0100, L501.2300 ####[facility] [address] [place], [address] ECRCL 103.88 ml/min Normal [facility] Comment on above: Performed By: #### L 500.4050, L100.0100, L501.2300 ####[facility] [address] [place], [address] EST GFR - AA 130 mL/min Normal >60 [facility] Comment on above: Result Comment: Afri can Afghan GFR Calc Performed By: #### L 500.4050, L100.0100, L501.2300 ####[facility] [address] [place], [address] GAP 7 Normal 5-15 [facility] Comment on above: Performed By: #### L 500.4050, L100.0100, L501.2300 ####[facility] [address] [place], [address] GFR/1.73 sq M.predicted among non-blacks MDRD (S/P/Bld) [Vol rate/Area] 108 mL/min/{1.73_m2} Normal >60 [facility] Comment on above: Result Comment: Non- GFR Calc Performed By: #### L 500.4050, L100.0100, L501.2300 ####[facility] [address] [place], [address] Globulin (S) [Mass/Vol] 3.8 g/dL Normal 2.2-4.2 [facility] Comment on above: Performed By: #### L 500.4050, L100.0100, L501.2300 ####[facility] [address] [place], [address] Glucose [Mass/Vol] 112 mg/dL High 74-106 [facility] Comment on above: Result Comment: Fast ing Glucose result from 100 to 125 mg/dLsuggests IMPAIRED HOMEOSTASIS per A.D.A. criteria. Performed By: #### L 500.4050, L100.0100, L501.2300 ####[facility] [address] [place], [address] Potassium [Moles/Vol] 3.9 mmol/L Normal 3.5-5.1 [facility] Comment on above: Performed By: #### L 500.4050, L100.0100, [id number] ####[facility] [address] [place], [address] Sodium [Moles/Vol] 140 mmol/L Normal 136-145 [facility] Comment on above: Performed By: #### L 500.4050, L100.0100, L501.2300 ####[facility] [address] [place], [address] T PROT 7.6 g/dL Normal 6.4-8.2 [facility] Comment on above: Performed By: #### L 500.4050, L100.0100, L501.2300 ####[facility] [address] [place], [address] Urea nitrogen [Mass/Vol] 18 mg/dL Normal 7-18 [facility] Comment on above: Performed By: #### L 500.4050, L100.0100, L501.2300 ####[facility] [address] [place], [address] Oncology Visit Reporton 04-13 Oncology Visit Report Normal [facility] Phosphoruson 05-10-2024 Phosphate [Mass/Vol] 3.5 mg/dL Normal 2.5-4.9 [facility] Comment on above: Performed By: #### L 500.4050, L100.0100, L501.2300 ####[facility] [address] [place], [address] Blood band neutrophil count as percentage of total leukocytesOrdered By: Barry Arrington on 04-26-2024 Band form neutrophils/100 WBC (Bld) 4 % 0-5 [facility] Blood lymphocytes/100 leukoc ytesOrdered By: Barry Arrington on 04-26-2024 Lymphocytes/100 WBC (Bld) 14 % Low 19-41 [facility] Blood metamyelocytes/100 montrell kocytesOrdered By: Barry Arrington on 04-26-2024 Metamyelocytes/100 WBC (Bld) 2 % High 0-1 [facility] Blood monocytes/100 leukocyt esOrdered By: Barry Arrington on 04-26-2024 Monocytes/100 WBC (Bld) 1 % 0-10 [facility] Blood segmented neutrophils/ 100 leukocytesOrdered By: Barry Arrington on 04-26-2024 Segmented neutrophils/100 WBC (Bld) 72 % High 47-70 [facility] Cells counted Molgen (Bld/Ti ss) [#]Ordered By: Barry Arrington on 04-26-2024 Differential Total Cells Counted 100 MANUAL DIFF [facility] Myelocyte %Ordered By: Yael Arrington on 04-26-2024 Myelocytes/100 WBC (Bld) 7 % High 0-0 [facility] Pathologist review Eliecer (Unsp spec) [Interp]Ordered By: Barry Arrington on 04-26-2024 Differential Pathologist's Review Reviewed [facility] Comment on above: Previous reported re sult: Perri meier Edited by: ANDERSON on 04/27/24:9917Neutrophilic leukocytosis with left shift.Clinical correlation necessary.Jamil Hernandez M.D. 04/27/24 AMENDED REPORT 04/27/24 5207 PATH REV previously reported as: Perri meier Review by pathologistOrdered By: Barry Arrington on 04-26-2024 Pathologist review Eliecer (Unsp spec) [Interp] Reviewed [facility] Comment on above: Previous reported re sult: May foll Edited by: ANDERSON on 04/27/24:1357Neutrophilic leukocytosis with left shift.Clinical correlation necessary.Jamil Hernandez M.D. 04/27/24 AMENDED REPORT 04/27/24 1357 PATH REV previously reported as: January Segmented neutrophils/100 WB C (Bld)Ordered By: Barry Arrington on 04-26-2024 Neutrophils/100 WBC (Bld) 72 % High 47-70 [facility] Smudge cell detectionOrdered By: Barry Arrington on 04-26-2024 Smudge cells LM Ql (Bld) RARE [facility] Smudge cells LM Ql (Bld)Orde red By: Barry Arrington on 04-26-2024 Smudge Cells [facility] Total cell countOrdered By: Barry Arrington on 04-26-2024 Cells counted Molgen (Bld/Tiss) [#] 100 MANUAL DIFF [facility] Estradiol measurementOrdered By: Silvino Collins on 03-20-2024 Estradiol (E2) Level 11.8 pg/mL [facility] Comment on above: NORMAL REFERENCE RAN GES FEMALE FOLLICULAR 21.4 - 164.8 pg/mL MID-CYCLE PEAK 49.9 - 367.2 pg/mL LUTEAL 40.2 - 259.0 pg/mL POST-MENOPAUSAL ON MHT <11.0 - 462.1 pg/mL NOT ON MHT <11.0 - 58.3 pg/mL MALE <11.0 - 52.5 pg/mL NOTE:[employer] HAS CONFIRMED THE DRUG FULVETRANT (FASLODEX) MAY CAUSE FALSELY ELEVATED ESTRADIOL RESULTS WHEN USING THIS TEST METHOD. IF PATIENT IS TAKING FULVESTRANT AN ALTERNATIVE METHOD SHOULD BE USED TO DETERMINE ESTRADIOL CONCENTRATION. Lactate dehydrogenase (LDH) measurementOrdered By: Silvino Collins on 03-20-2024 LDH [Catalytic activity/Vol] 215 U/L 84-246 [facility] Absolute lymphocyte countOrd ered By: Carrillo Driscoll on 12-28-2023 Lymphocytes Auto (Unsp spec) [#/Vol] 3.08 10*3/uL 0.83-4.51 [facility] Automated lymphocyte count a s percentage of total leukocytesOrdered By: Carrillo Driscoll on 12-28-2023 Lymphocytes/100 WBC Auto (Unsp spec) 48.4 % 19-41 [facility] Basophil percentageOrdered B y: Carrillo Driscoll on 12-28-2023 Basophils/100 WBC (Bld) 1.4 % 0-1 [facility] Bilirubin [Mass/Vol] 1.10 mg/dL 0.20-1.00 [facility] Comment on above: For patients on eltr ombopag therapy, use of Dimension Equality TBIL is not recommended. Chloride [Moles/Vol] 105 mmol/L 98-107 [facility] Eosinophils/100 WBC (Bld) 0.9 % 0-5 [facility] Glucose [Mass/Vol] 85 mg/dL 74-106 [facility] Hemoglobin (Bld) [Mass/Vol] 12.6 g/dL 12.0-15.0 [facility] Monocytes/100 WBC (Bld) 9.0 % 0-10 [facility] Neutrophils (Bld) [#/Vol] 2.6 10*3/uL 2.0-7.7 [facility] Neutrophils/100 WBC (Bld) 40.1 % 47-70 [facility] Potassium [Moles/Vol] 4.0 mmol/L 3.5-5.1 [facility] Protein [Mass/Vol] 7.6 g/dL 6.4-8.2 [facility] Sodium [Moles/Vol] 138 mmol/L 136-145 [facility] WBC (Bld) [#/Vol] 6.4 10*3/uL 4.4-11.0 [facility] Determination of erythrocyte mean corpuscular volume (MCV)Ordered By: Carrillo Driscoll on 12-28-2023 MCV (RBC) [Entitic vol] 94.3 fL 81-99 [facility] Erythrocyte distribution wid th ratioOrdered By: Carrillo Americo on 12-28-2023 Erythrocyte distribution width (RBC) [Ratio] 12.1 % 11.6-14.6 [facility] Erythrocyte distribution wid th standard deviationOrdered By: Carrillo Driscoll on 12-28-2023 Erythrocyte distribution width (RBC) [Entitic vol] 42.0 fL 35.1-43.9 [facility] Hematocrit Auto (Bld) [Volum e fraction]Ordered By: Carrillo Driscoll on 12-28-2023 Hematocrit (Bld) [Volume fraction] 38.3 % 37-47 [facility] Immature granulocytes/100 WB C Auto (Bld)Ordered By: Carrillo Driscoll on 12-28-2023 Immature granulocytes/100 WBC (Bld) 0.200 % 0.0-0.9 [facility] Comment on above: IG% - Immature Granu locytes (promyelocytes, myelocytes and metamyelocytes) > 1% indicates that a LEFT SHIFT is Present. Laboratory - Chemistry and C hemistry - challengeOrdered By: Carrillo Driscoll on 12-28-2023 Albumin/Globulin [Mass ratio] 1.1 {ratio} 0.9-2.4 [facility] ALP [Catalytic activity/Vol] 100 U/L 45-117 [facility] ALT [Catalytic activity/Vol] 33 U/L 13-56 [facility] CO2 [Moles/Vol] 28.0 mmol/L 21.0-32.0 [facility] Globulin (S) [Mass/Vol] 3.7 g/dL 2.2-4.2 [facility] Urea nitrogen/Creatinine [Mass ratio] 32.9 mg/mg 10-20 [facility] Laboratory - Hematology and Cell countsOrdered By: Carrillo Driscoll on 12-28-2023 MCH (RBC) [Entitic mass] 31.0 pg 27.0-32.0 [facility] MCHC (RBC) [Mass/Vol] 32.9 g/dL 32-36 [facility] Nucleated RBC/100 WBC (Bld) [Ratio] 0 % 0-5 [facility] Platelet mean volume (Bld) [Entitic vol] 10.3 fL 6.2-12.0 [facility] Platelets (Bld) [#/Vol] 425 10*3/uL 150-450 [facility] No Panel InformationOrdered By: Carrillo Driscoll on 12-28-2023 Estimated GFR (MDRD) Amer 124 mL/min >60 [facility] Comment on above: GFR Calc Estimated GFR (MDRD) Non-Af Amer 103 mL/min >60 [facility] Comment on above: Non- GFR Calc RBC Auto (Bld) [#/Vol]Ordere d By: Carrillo Driscoll on 12-28-2023 RBC (Bld) [#/Vol] 4.06 10*6/uL 4.2-5.4 [facility] Serum or plasma calcium royal urement (mass/volume)Ordered By: Carrillo Driscoll on 12-28-2023 Calcium [Mass/Vol] 9.3 mg/dL 8.5-10.1 [facility] Serum or plasma creatinine m easurement (mass/volume)Ordered By: Carrillo Driscoll on 12-28-2023 Creatinine [Mass/Vol] 0.64 mg/dL 0.55-1.02 [facility] Comment on above: The validity of the calculated GFR & GFRAA in patients over 70 years has not been determined. Clinical correlation is essential. Serum or plasma thyroid stim ulating hormone (TSH) measurement (units/volume)Ordered By: Carrillo Driscoll on 12-28-2023 TSH Qn 2.49 uIU/mL 0.358-3.74 [facility] Serum or plasma urea nitroge n measurement (mass/volume)Ordered By: Carrillo Driscoll on 12-28-2023 Urea nitrogen [Mass/Vol] 21 mg/dL 7-18 [facility] Thin prep Papanicolaou smear with manual screeningOrdered By: Carrillo Driscoll on 12-28-2023 Thin prep Papanicolaou smear with manual screening 3.9 g/dL 3.2-5.0 [facility] Thin prep Papanicolaou smear with manual screening 33 U/L 15-37 [facility] Thin prep Papanicolaou smear with manual screening 5 5-15 [facility] Office Visiton 06-03-2017 Documentation of current medications (procedure) Done Invalid Interpretation Code [facility] Work Phone: Tobacco use CPHS Former smoker Invalid Interpretation Code [facility] Work Phone: Office Visiton 03-23-2017 Documentation of current medications (procedure) Done Invalid Interpretation Code [facility] Work Phone: [phone] Protein mass conc Done [facility] Work Phone: Tobacco smoking status NHIS Former smoker [facility] Work Phone: Tobacco use [facility] Former smoker Invalid Interpretation Code [facility] Work Phone: [phone] Office Visiton 02-21-2017 Documentation of current medications (procedure) Done Invalid Interpretation Code [facility] Work Phone: [phone] Protein mass conc Done [facility] Work Phone: [phone] Tobacco smoking status MEIS Former smoker [facility] Work Phone: [phone] Tobacco use [facility] Former smoker Invalid Interpretation Code [facility] Work Phone: [phone] Office [facility] 01-21-2017 Documentation of current medications (procedure) Done Invalid Interpretation Code [facility] Work Phone: [phone] Protein mass conc Done [facility] Work Phone: [phone] Tobacco smoking status [facility] Former smoker [facility] Work Phone: [phone] Tobacco use [facility] Former smoker Invalid Interpretation Code [facility] Work Phone: [phone] Office Visiton 12-26-2015 Protein mass conc yes [facility] Work Phone: [phone] Smoking cessation education (procedure) yes Invalid Interpretation Code [facility] Work Phone: [phone] Lab Report: CBCDon 1 Erythrocytes (RBC) 4.08 10*6/uL Low 4.2-5.4 [facility] Work Phone: [phone] Hematocrit (Bld) [Volume fraction] 40.4 % Normal 37-47 [facility] Work Phone: [phone] Hematocrit (HCT) 40.4 % Normal 37-47 [facility] Work Phone: [phone] Hemoglobin (Bld) [Mass/Vol] 14.1 g/dL Normal 12.0-16.0 [facility] Work Phone: Platelets 282 10*3/mm3 Normal 150-450 [facility] Work Phone: [phone] Platelets (Bld) [#/Vol] 282 10*3/mm3 Normal 150-450 [facility] Work Phone: [phone] RBC (Bld) [#/Vol] 4.08 10*6/uL Low 4.2-5.4 [facility] Work Phone: [phone] WBC (Bld) [#/Vol] 4.7 10*3/uL Normal 4.4-11.0 [facility] Work Phone: [phone] WBC (Leukocytes) 4.7 10*3/uL Normal 4.4-11.0 [facility] Work Phone: [phone] Lab Report: Johanna 09-07-20 11 GE use only - for [employer] import when terms are not otherwise specified Negative Normal 0-9 Nonpreg [facility] Work Phone: [phone] tPREGS Negative Normal 0-9 Nonpreg [facility] Work Phone: [phone] Vital Signs Date Time Vital Sign Value Performing Clinician Facility 04-18-2025 12:32-0400 Body temperature 98.7 [degF] Dr. Carrillo Driscoll MD Work Phone: [facility] 04-18-2025 12:32-0400 Diastolic blood pressure 96 mm[Hg] Dr. Carrillo Driscoll MD Work Phone: [facility] 04-18-2025 12:32-0400 Heart rate 68 /min Dr. Carrillo Driscoll MD Work Phone: [facility] 04-18-2025 12:32-0400 Respiratory rate 18 /min Dr. Carrillo Driscoll MD Work Phone: [facility] 04-18-2025 12:32-0400 SaO2% (BldA) [Mass fraction] 99 % Dr. Carrillo Driscoll MD Work Phone: [facility] 04-18-2025 12:32-0400 Systolic blood pressure 170 mm[Hg] Dr. Carrillo Driscoll MD Work Phone: [phone] [place] [address] 04-18-2025 11:19-0400 Body height 172.[address] Carrillo Driscoll MD Work Phone: [phone])388-092218 [place] [address] 04-18-2025 11:19-0400 Body mass index (BMI) [Ratio] 25.4 kg/m2 Dr. Carrillo Driscoll MD Work Phone: [phone])232-784918 [place] [address] 04-18-2025 11:19-0400 Body weight [address] Carrillo Driscoll MD Work Phone: [phone])231-216718 [place] [address] 02-27-2025 13:43-0400 Body height 172.[address] Carrillo Driscoll MD Work Phone: [phone])483-277418 [place] [address] 02-27-2025 13:43-0400 Body mass index (BMI) [Ratio] 25.4 kg/m2 Dr. Carrillo Driscoll MD Work Phone: 7(759)690-208518 [place] [address] 02-27-2025 13:43-0400 Body temperature 98.5 [degF] Dr. Carrillo Driscoll MD Work Phone: 2(494)937-804918 [place] [address] 02-27-2025 13:43-0400 Body weight 75.[address] Carrillo Driscoll MD Work Phone: 5(066)355-248818 [place] [address] 02-27-2025 13:43-0400 Diastolic blood pressure 86 mm[Hg] Dr. Carrillo Driscoll MD Work Phone: [phone])105-771618 [place] [address] 02-27-2025 13:43-0400 Heart rate 72 /min Dr. Carrillo Driscoll MD Work Phone: [phone])132-680660 [place] [address] 02-27-2025 13:43-0400 Respiratory rate 18 /min Dr. Carrillo Driscoll MD Work Phone: [phone])194-591518 [place] [address] 02-27-2025 13:43-0400 SaO2% (BldA) [Mass fraction] 100 % Dr. Carrillo Driscoll MD Work Phone: [facility] 02-27-2025 13:43-0400 Systolic blood pressure 148 mm[Hg] Dr. Carrillo Driscoll MD Work Phone: 0(843)365-628060 [place] [address] 02-22-2025 09:28-0400 Diastolic blood pressure 87 mm[Hg] Dr. Carrillo Driscoll MD Work Phone: 3(010)376-990360 [place] [address] 02-22-2025 09:28-0400 Heart rate 79 /min Dr. Carrillo Driscoll MD Work Phone: 6([phone])079-079460 [place] [address] 02-22-2025 09:28-0400 Respiratory rate 18 /min Dr. Carrillo Driscoll MD Work Phone: 2([phone])415-219618 [place] [address] 02-22-2025 09:28-0400 SaO2% (BldA) [Mass fraction] 98 % Dr. Carrillo Driscoll MD Work Phone: [phone])692-780518 [place] [address] 02-22-2025 09:28-0400 Systolic blood pressure 129 mm[Hg] Dr. Carrillo Driscoll MD Work Phone: 6(907)568-392660 [place] [address] 02-20-2025 10:28-0400 Body temperature 98.1 [degF] Dr. Carrillo Driscoll MD Work Phone: [phone])479-410460 [place] [address] 02-20-2025 10:28-0400 Diastolic blood pressure 62 mm[Hg] Dr. Carrillo Driscoll MD Work Phone: 3([phone])446-106460 [place] [address] 02-20-2025 10:28-0400 Heart rate 82 /min Dr. Carrillo Driscoll MD Work Phone: 0(111)226-081860 [place] [address] 02-20-2025 10:28-0400 Respiratory rate 16 /min Dr. Carrillo Driscoll MD Work Phone: [phone])[phone] [place] [address] 02-20-2025 10:28-0400 SaO2% (BldA) [Mass fraction] 98 % Dr. Carrillo Driscoll MD Work Phone: 4(233)516-300560 [place] [address] 02-20-2025 10:28-0400 Systolic blood pressure 120 mm[Hg] Dr. Carrillo Driscoll MD Work Phone: 9(346)260-791460 [place] [address] 02-20-2025 08:26-0400 Body height 172.[address] Carrillo Driscoll MD Work Phone: [facility] 02-20-2025 08:26-0400 Body mass index (BMI) [Ratio] 24.7 kg/m2 Dr. Carrillo Driscoll MD Work Phone: [facility] 02-20-2025 08:26-0400 Body weight 73.[address] Carrillo Driscoll MD Work Phone: 6([phone] [place] [address] 02-15-2025 08:18-0400 Diastolic blood pressure 82 mm[Hg] Dr. Carrillo Driscoll MD Work Phone: 9(473)815-684760 [place] [address] 02-15-2025 08:18-0400 Heart rate 77 /min Dr. Carrillo Driscoll MD Work Phone: 4([phone])786-267218 [place] [address] 02-15-2025 08:18-0400 Respiratory rate 18 /min Dr. Carrillo Driscoll MD Work Phone: [phone] [place] [address] 02-15-2025 08:18-0400 SaO2% (BldA) [Mass fraction] 95 % Dr. Carrillo Driscoll MD Work Phone: 1(287)691-188060 [place] [address] 02-15-2025 08:18-0400 Systolic blood pressure 132 mm[Hg] Dr. Carrillo Driscoll MD Work Phone: 4(997)578-751160 [place] [address] 02-13-2025 12:44-0400 Body temperature 99.3 [degF] Dr. Carrillo Driscoll MD Work Phone: 6(383)001-104360 [place] [address] 02-13-2025 12:44-0400 Diastolic blood pressure 79 mm[Hg] Dr. Carrillo Driscoll MD Work Phone: 4(229)944-787860 [place] [address] 02-13-2025 12:44-0400 Heart rate 77 /min Dr. Carrillo Driscoll MD Work Phone: 8(517)052-518660 [place] [address] 02-13-2025 12:44-0400 Respiratory rate 16 /min Dr. Carrillo Driscoll MD Work Phone: [facility] 02-13-2025 12:44-0400 SaO2% (BldA) [Mass fraction] 100 % Dr. Carrillo Driscoll MD Work Phone: [facility] 02-13-2025 12:44-0400 Systolic blood pressure 145 mm[Hg] Dr. Carrillo Driscoll MD Work Phone: 1(698)017-165660 [place] [address] 02-13-2025 10:07-0400 Body height 172.[address] Carrillo Driscoll MD Work Phone: 4(931)589-147560 [place] [address] 02-13-2025 10:07-0400 Body mass index (BMI) [Ratio] 25.1 kg/m2 Dr. Carrillo Driscoll MD Work Phone: 3(930)872-810860 [place] [address] 02-13-2025 10:07-0400 Body weight [address] Carrillo Driscoll MD Work Phone: 9(308)710-596218 [place] [address] 01-25-2025 09:06-0400 Body height 172.[address] Carrillo Driscoll MD Work Phone: 3(032)183-484518 [place] [address] 01-24-2025 10:04-0400 Body height 172.[address] Carrillo Driscoll MD Work Phone: 2(833)839-870618 [place] [address] 12-04-2024 14:08-0400 Body height 172.[address] Carrillo Driscoll MD Work Phone: 1(982)202-496418 [place] [address] 12-04-2024 14:08-0400 Body mass index (BMI) [Ratio] 24.5 kg/m2 Dr. Carrillo Driscoll MD Work Phone: 0(288)803-890560 [place] [address] 12-04-2024 14:08-0400 Body temperature 98.5 [degF] Dr. Carrillo Driscoll MD Work Phone: 4(482)969-001260 [place] [address] 12-04-2024 14:08-0400 Body weight 73.[address] Carrillo Driscoll MD Work Phone: 7(402)533-756060 [place] [address] 12-04-2024 14:08-0400 Diastolic blood pressure 88 mm[Hg] Dr. Carrillo Driscoll MD Work Phone: 4(168)071-725160 [place] [address] 12-04-2024 14:08-0400 Heart rate 76 /min Dr. Carrillo Driscoll MD Work Phone: 8(458)798-698360 [place] [address] 12-04-2024 14:08-0400 Respiratory rate 18 /min Dr. Carrillo Driscoll MD Work Phone: 2(360)730-525818 [place] [address] 12-04-2024 14:08-0400 SaO2% (BldA) [Mass fraction] 98 % Dr. Carrillo Driscoll MD Work Phone: 4(358)012-909018 [place] [address] 12-04-2024 14:08-0400 Systolic blood pressure 149 mm[Hg] Dr. Carrillo Driscoll MD Work Phone: 5(733)030-227318 [place] [address] 11-30-2024 13:45-0400 Diastolic blood pressure 82 mm[Hg] Dr. Carrillo Driscoll MD Work Phone: 1(269)537-421118 [place] [address] 11-30-2024 13:45-0400 Heart rate 76 /min Dr. Carrillo Driscoll MD Work Phone: 5(533)420-263218 [place] [address] 11-30-2024 13:45-0400 Respiratory rate 18 /min Dr. Carrillo Driscoll MD Work Phone: 7(713)071-737518 [place] [address] 11-30-2024 13:45-0400 SaO2% (BldA) [Mass fraction] 98 % Dr. Carrillo Driscoll MD Work Phone: 7(077)765-844118 [place] [address] 11-30-2024 13:45-0400 Systolic blood pressure 119 mm[Hg] Dr. Carrillo Driscoll MD Work Phone: 8(517)638-619118 [place] [address] 11-27-2024 13:02-0400 Body height 172.[address] Carrillo Driscoll MD Work Phone: 5(843)630-716718 [place] [address] 11-27-2024 13:02-0400 Body mass index (BMI) [Ratio] 23.9 kg/m2 Dr. Carrillo Driscoll MD Work Phone: 1(305)180-642318 [place] [address] 11-27-2024 13:02-0400 Body temperature 98.9 [degF] Dr. Carrillo Driscoll MD Work Phone: 3(978)740-693218 [place] [address] 11-27-2024 13:02-0400 Body weight 71.[address] Carrillo Driscoll MD Work Phone: [facility] 11-27-2024 13:02-0400 Diastolic blood pressure 86 mm[Hg] Dr. Carrillo Driscoll MD Work Phone: [facility] 11-27-2024 13:02-0400 Heart rate 98 /min Dr. Carrillo Driscoll MD Work Phone: 8(399)487-222860 [place] [address] 11-27-2024 13:02-0400 Respiratory rate 16 /min Dr. Carrillo Driscoll MD Work Phone: 0(678)810-584160 [place] [address] 11-27-2024 13:02-0400 SaO2% (BldA) [Mass fraction] 100 % Dr. Carrillo Driscoll MD Work Phone: 5(276)145-836360 [place] [address] 11-27-2024 13:02-0400 Systolic blood pressure 145 mm[Hg] Dr. Carrillo Driscoll MD Work Phone: 0(301)655-402018 [place] [address] 11-19-2024 14:44-0400 Body mass index (BMI) [Ratio] 23.9 kg/m2 Dr. Carrillo Driscoll MD Work Phone: 6(445)081-497818 [place] [address] 11-19-2024 14:44-0400 Body temperature 99.2 [degF] Dr. Carrillo Driscoll MD Work Phone: 4(295)318-553218 [place] [address] 11-19-2024 14:44-0400 Body weight 71.[address] Carrillo Driscoll MD Work Phone: 2(474)117-502060 [place] [address] 11-19-2024 14:44-0400 Diastolic blood pressure 93 mm[Hg] Dr. Carrillo Driscoll MD Work Phone: 6(481)942-996560 [place] [address] 11-19-2024 14:44-0400 Heart rate 77 /min Dr. Carrillo Driscoll MD Work Phone: 5(891)548-915760 [place] [address] 11-19-2024 14:44-0400 Respiratory rate 18 /min Dr. Carrillo Driscoll MD Work Phone: 6(112)616-113860 [place] [address] 11-19-2024 14:44-0400 SaO2% (BldA) [Mass fraction] 100 % Dr. Crarillo Driscoll MD Work Phone: 8(922)213-729360 [place] [address] 11-19-2024 14:44-0400 Systolic blood pressure 167 mm[Hg] Dr. Carrillo Driscoll MD Work Phone: 8(496)444-092718 [place] [address] 09-13-2024 10:37-0500 Body mass index (BMI) [Ratio] 25 kg/m2 Dr. Carrillo Driscoll MD Work Phone: 0(745)479-364118 [place] [address] 09-13-2024 10:37-0500 Body temperature 97.8 [degF] Dr. Carrillo Driscoll MD Work Phone: 0(582)455-960318 [place] [address] 09-13-2024 10:37-0500 Body weight 74.[address] Carrillo Driscoll MD Work Phone: 7(736)066-527718 [place] [address] 09-13-2024 10:37-0500 Diastolic blood pressure 95 mm[Hg] Dr. Carrillo Driscoll MD Work Phone: 5(837)135-079318 [place] [address] 09-13-2024 10:37-0500 Heart rate 82 /min Dr. Carrillo Driscoll MD Work Phone: 5(497)528-907218 [place] [address] 09-13-2024 10:37-0500 Respiratory rate 18 /min Dr. Carrillo Driscoll MD Work Phone: 2(839)248-927818 [place] [address] 09-13-2024 10:37-0500 SaO2% (BldA) [Mass fraction] 99 % Dr. Carrillo Driscoll MD Work Phone: 8(451)908-118618 [place] [address] 09-13-2024 10:37-0500 Systolic blood pressure 165 mm[Hg] Dr. Carrillo Driscoll MD Work Phone: 1(182)484-402318 [place] [address] 09-03-2024 11:09-0500 Body mass index (BMI) [Ratio] 25 kg/m2 Dr. Carrillo Driscoll MD Work Phone: 4(431)847-567318 [place] [address] 09-03-2024 11:09-0500 Body weight 74.[address] Carrillo Driscoll MD Work Phone: 8(148)305-205018 [place] [address] 09-03-2024 11:09-0500 Diastolic blood pressure 85 mm[Hg] Dr. Carrillo Driscoll MD Work Phone: [facility] 09-03-2024 11:09-0500 Systolic blood pressure 153 mm[Hg] Dr. Carrillo Driscoll MD Work Phone: 1(777)844-976860 [place] [address] 08-20-2024 14:22-0500 Body mass index (BMI) [Ratio] 24.5 kg/m2 Dr. Carrillo Driscoll MD Work Phone: 9(328)185-355960 [place] [address] 08-20-2024 14:22-0500 Body temperature 97.8 [degF] Dr. Carrillo Driscoll MD Work Phone: 5(619)247-474460 [place] [address] 08-20-2024 14:22-0500 Body weight 73.[address] Carrillo Driscoll MD Work Phone: 6(537)807-687218 [place] [address] 08-20-2024 14:22-0500 Diastolic blood pressure 88 mm[Hg] Dr. Carrillo Driscoll MD Work Phone: 8(703)520-497518 [place] [address] 08-20-2024 14:22-0500 Heart rate 72 /min Dr. Carrillo Driscoll MD Work Phone: 8(087)616-212518 [place] [address] 08-20-2024 14:22-0500 Respiratory rate 18 /min Dr. Carrillo Driscoll MD Work Phone: 5(480)835-120018 [place] [address] 08-20-2024 14:22-0500 SaO2% (BldA) [Mass fraction] 98 % Dr. Carrillo Driscoll MD Work Phone: 3(186)632-808918 [place] [address] 08-20-2024 14:22-0500 Systolic blood pressure 145 mm[Hg] Dr. Carrillo Driscoll MD Work Phone: 3(587)226-297860 [place] [address] 08-13-2024 11:56-0500 Body mass index (BMI) [Ratio] 24.5 kg/m2 Dr. Carrillo Driscoll MD Work Phone: 3(823)221-920018 [place] [address] 08-13-2024 11:56-0500 Body temperature 97.9 [degF] Dr. Carrillo Driscoll MD Work Phone: 1(318)136-262218 [place] [address] 08-13-2024 11:56-0500 Body weight 73.[address] Carrillo Driscoll MD Work Phone: [facility] 08-13-2024 11:56-0500 Diastolic blood pressure 85 mm[Hg] Dr. Carrillo Driscoll MD Work Phone: 1(494)213-916560 [place] [address] 08-13-2024 11:56-0500 Heart rate 80 /min Dr. Carrillo Driscoll MD Work Phone: 3(459)339-594360 [place] [address] 08-13-2024 11:56-0500 Respiratory rate 18 /min Dr. Carrillo Driscoll MD Work Phone: 4(003)614-862560 [place] [address] 08-13-2024 11:56-0500 SaO2% (BldA) [Mass fraction] 99 % Dr. Carrillo Driscoll MD Work Phone: 5(092)024-841318 [place] [address] 08-13-2024 11:56-0500 Systolic blood pressure 144 mm[Hg] Dr. Carrillo Driscoll MD Work Phone: 6(050)157-863118 [place] [address] 08-08-2024 10:16-0500 Body mass index (BMI) [Ratio] 25.1 kg/m2 Dr. Carrillo Driscoll MD Work Phone: 7(544)796-372660 [place] [address] 08-08-2024 10:16-0500 Body temperature 97.8 [degF] Dr. Carrillo Driscoll MD Work Phone: 2(832)866-320960 [place] [address] 08-08-2024 10:16-0500 Body weight 74.[address] Carrillo Driscoll MD Work Phone: 3(608)746-173160 [place] [address] 08-08-2024 10:16-0500 Diastolic blood pressure 83 mm[Hg] Dr. Carrillo Driscoll MD Work Phone: 8(084)256-415860 [place] [address] 08-08-2024 10:16-0500 Heart rate 68 /min Dr. Carrillo Driscoll MD Work Phone: 7(200)131-372160 [place] [address] 08-08-2024 10:16-0500 Respiratory rate 18 /min Dr. Carrillo Driscoll MD Work Phone: 8(520)186-948660 [place] [address] 08-08-2024 10:16-0500 SaO2% (BldA) [Mass fraction] 99 % Dr. Carrillo Driscoll MD Work Phone: 1(497)188-446160 [place] [address] 08-08-2024 10:16-0500 Systolic blood pressure 121 mm[Hg] Dr. Carrillo Driscoll MD Work Phone: 5(050)874-303760 [place] [address] 05-10-2024 12:45-0400 Body temperature 97.1 [degF] Dr. Carrillo Driscoll MD Work Phone: 1(602)782-780518 [place] [address] 05-10-2024 12:45-0400 Diastolic blood pressure 74 mm[Hg] Dr. Carrillo Driscoll MD Work Phone: 1(496)500-169818 [place] [address] 05-10-2024 12:45-0400 Heart rate 85 /min Dr. Carrillo Driscoll MD Work Phone: 5(355)540-067918 [place] [address] 05-10-2024 12:45-0400 Respiratory rate 16 /min Dr. Carrillo Driscoll MD Work Phone: 1(791)116-367118 [place] [address] 05-10-2024 12:45-0400 SaO2% (BldA) [Mass fraction] 97 % Dr. Carrillo Driscoll MD Work Phone: 2(215)931-018118 [place] [address] 05-10-2024 12:45-0400 Systolic blood pressure 131 mm[Hg] Dr. Carrillo Driscoll MD Work Phone: 0(087)709-247418 [place] [address] 11-15-2023 14:04-0500 Body height 172.[address] Carrillo Driscoll Work Phone: 6(845)698-175218 [place] [address] 11-15-2023 14:04-0500 Body mass index (BMI) [Ratio] 25.1 kg/m2 Dr. Carrillo Driscoll Work Phone: 1(377)010-460260 [place] [address] 11-15-2023 14:04-0500 Body temperature 97.9 [degF] Dr. Carrillo Driscoll Work Phone: 4(594)284-732260 [place] [address] 11-15-2023 14:04-0500 Body weight 74.[address] Carrillo Driscoll Work Phone: 8(541)401-051660 [place] [address] 11-15-2023 14:04-0500 Diastolic blood pressure 86 mm[Hg] Dr. Carrillo Driscoll Work Phone: 3(890)503-281160 [place] [address] 11-15-2023 14:04-0500 Heart rate 80 /min Dr. Carrillo Driscoll Work Phone: [facility] 11-15-2023 14:04-0500 Respiratory rate 16 /min Dr. Carrillo Driscoll Work Phone: [facility] 11-15-2023 14:04-0500 SaO2% (BldA) [Mass fraction] 99 % Dr. Carrillo Driscoll Work Phone: [facility] 11-15-2023 14:04-0500 Systolic blood pressure 134 mm[Hg] Dr. Carrillo Driscoll Work Phone: [facility] 07-16-2022 16:54-0400 Respiratory rate 16 /min Dr. Carrillo Driscoll Work Phone: [facility] Work Phone: 07-16-2022 13:56-0400 Body height 172.[address] Carrillo Driscoll Work Phone: [facility] Work Phone: 07-16-2022 13:56-0400 Body mass index (BMI) [Ratio] 25.8 kg/m2 Dr. Carrillo Driscoll Work Phone: [facility] Work Phone: 07-16-2022 13:56-0400 Body temperature 96.6 [degF] Dr. Carrillo Driscoll Work Phone: [facility] Work Phone: 07-16-2022 13:56-0400 Body weight 77.[address] Carrillo Driscoll Work Phone: [facility] Work Phone: 07-16-2022 13:56-0400 Diastolic blood pressure 93 mm[Hg] Dr. Carrillo Driscoll Work Phone: [facility] Work Phone: 07-16-2022 13:56-0400 Heart rate 96 /min Dr. Carrillo Driscoll Work Phone: [facility] Work Phone: 07-16-2022 13:56-0400 SaO2% (BldA) [Mass fraction] 96 % Dr. Carrillo Driscoll Work Phone: [facility] Work Phone: 07-16-2022 13:56-0400 Systolic blood pressure 152 mm[Hg] Dr. Carrillo Driscoll Work Phone: [facility] Work Phone: 11-07-2015 13:32-0500 BMI (Body Mass Index) 20.38 kg/m2 [facility] Work Phone: 11-07-2015 13:32-0500 Body weight 61.69 kg [facility] Work Phone: 11-07-2015 13:32-0500 Weight 61.69 kg [facility] Work Phone: 04-02-2013 16:26-0400 Body Temperature 98.4 [degF] [facility] Work Phone: 04-02-2013 16:26-0400 BP Diastolic 78 mm[Hg] [facility] Work Phone: 04-02-2013 16:26-0400 BP Systolic 124 mm[Hg] [facility] Work Phone: 04-02-2013 16:26-0400 Pulse (Heart Rate) 96 /min [facility] Work Phone: 04-02-2013 16:26-0400 Pulse Oximetry 100 % [facility] Work Phone: 04-02-2013 16:26-0400 Respiratory Rate 18 /min [facility] Work Phone: 11-02-2011 13:50-0500 Height 173.99 cm Edy [facility] Work Phone: Encounters Encounter Date Encounter Type Care Provider Facility Start: 05-07-2025 ambulatory [facility] Facility:[facility] Start: 05-01-2025 ambulatory [facility] Facility:[facility] Start: 05-01-[address] Carrillo Driscoll MD -Cardiovascular Services Work Phone: Start: 04-30-2025 ambulatory Jorge Alberto Moreno Facility:[facility] Start: 04-30-[address] oJrge Alberto Cisse i, MD -Physical Therapy Work Phone: Start: 04-25-2025 End: 04-25-[address] Carrillo Driscoll MD -Pulmonary Services/Neurology Work Phone: Start: 04-25-2025 End: 04-25-2025 ambulatory [facility] Facility:[facility] Start: 04-23-[address] Jorge Alberto Cisse i, MD -Physical Therapy Work Phone: Start: 04-23-2025 Non-patient / Non-visit Dr. Theresa Mercedes MD -[facility] Work Phone: Start: 04-23-2025 End: 04-23-[address] Carrillo Driscoll MD Work Phone: -Pulmonary Services/Neurology Start: 04-23-2025 End: 04-23-[address] Carrillo Driscoll MD -Pulmonary Services/Neurology Work Phone: Start: 04-23-2025 End: 04-23-2025 ambulatory [facility] Facility:[facility] Start: 04-18-2025 End: 04-18-2025 Emergency department patient visit Dr. Carrillo Driscoll MD Work Phone: -Emergency Department Work Phone: Start: 04-15-[address] Jorge Alberto Cisse i, MD -Physical Therapy Work Phone: Start: 04-12-[address] Carrillo Driscoll MD -Laboratory Phy Office 3rd Flr Start: 04-12-2025 ambulatory Carrillo Driscoll Facility:[facility] Start: 02-27-[address] Silvino Collins MD -[facility] Start: 02-27-2025 End: 02-27-2025 Patient encounter procedure Renetta Oden PIPE WASHER-C -[facility] Work Phone: Start: 02-27-2025 End: 02-27-[address] Carrillo Driscoll MD Work Phone: [facility] Work Phone: Start: 02-26-[address] Jorge Alberto Cisse i, MD -Physical Therapy Work Phone: Start: 02-22-2025 End: 02-22-[address] Primo Alfaro MD -[facility] Work Phone: Start: 02-22-2025 End: 02-22-[address] Carrillo Driscoll MD Work Phone: [facility] Work Phone: Start: 02-20-2025 ambulatory Carrillo Driscoll Facility:[facility] Start: 02-20-2025 Non-patient / Non-visit Dr. Jeremy Hazel MD -[facility] Start: 02-20-2025 End: 02-20-2025 Admission to same day surgery center Dr. Em Hazel MD -Endoscopy Work Phone: Start: 02-20-2025 End: 02-20-[address] Carrillo Driscoll MD Work Phone: [facility] Work Phone: Start: 02-15-2025 End: 02-15-[address] Primo Alfaro MD -[facility] Work Phone: Start: 02-15-2025 End: 02-15-[address] Carrillo Driscoll MD Work Phone: [facility] Work Phone: Start: 02-13-2025 ambulatory Carrillo Das Americo Facility:[facility] Start: 02-13-2025 Non-patient / Non-visit Dr. Primo canales MD -[facility] Start: 02-13-2025 End: 02-13-2025 Admission to same day surgery center Dr. Primo Alfaro MD -Surgical Day Care Start: 02-13-2025 End: 02-13-[address] Carrillo Driscoll MD Work Phone: [facility] Work Phone: Start: 02-11-2025 End: 02-11-[address] Carrillo Driscoll MD Work Phone: [facility] Work Phone: Start: 02-11-2025 End: 02-11-[address] Gerardo Cooley DO -Outpatient Breast Imaging Work Phone: Start: 02-11-2025 End: 02-11-2025 ambulatory Carrillo Thiago Driscoll Facility:[facility] Start: 02-05-2025 End: 02-05-[address] Primo Alfaro MD -[facility] Work Phone: Start: 02-05-2025 End: 02-05-[address] Carrillo Driscoll MD Work Phone: [facility] Work Phone: Start: 01-25-2025 End: 01-25-[address] Naveen Talavera MD -[facility] Start: 01-25-2025 End: 01-25-[address] Carrillo Driscoll MD Work Phone: [facility] Work Phone: Start: 01-17-2025 End: 01-17-[address] Carrillo Driscoll MD Work Phone: [facility] Work Phone: Start: 01-17-2025 End: 01-17-[address] Jorge Alberto Moreno MD -Radiology, [facility] Work Phone: Start: 01-17-2025 End: 01-17-2025 ambulatory Jorge Alberto Moreno Facility:[facility] Start: 01-03-2025 End: 01-03-[address] Carrillo Driscoll MD -Laboratory Work Phone: Start: 01-03-2025 End: 01-03-2025 ambulatory Carrillo Driscoll Facility:[facility] Start: 12-25-2024 End: 12-25-[address] Carrillo Driscoll MD Work Phone: [facility] Work Phone: Start: 12-25-2024 End: 12-25-2024 Discharged Recurring Renetta Akshat PIPE WASHER-C -Physical Therapy Work Phone: Start: 12-11-2024 Registered Recurring Renetta Akshat PIPE WASHER-C -Physical Therapy Work Phone: Start: 12-06-2024 End: 12-06-[address] Carrillo Driscoll MD Work Phone: [facility] Work Phone: Start: 12-06-2024 End: 12-06-[address] Em Hazel MD -[facility] Work Phone: Start: 12-06-2024 End: 12-06-2024 ambulatory Carrillo Driscoll Facility:[facility] Start: 12-04-2024 End: 12-04-2024 Patient encounter procedure Renetta Oden PIPE WASHER-C -Cat Scan, [facility] Work Phone: Start: 12-04-2024 End: 12-04-2024 ambulatory Carrillo Driscoll Facility:[facility] Start: 11-30-2024 End: 11-30-[address] Em Hazel MD -[facility] Work Phone: Start: 11-30-2024 End: 11-30-2024 ambulatory Carrillo Thiago Driscoll Facility:[facility] Start: 11-29-2024 Registered Recurring Renetta Akshat PIPE WASHER-C -Physical Therapy Work Phone: Start: 11-27-2024 End: 11-27-2024 Patient encounter procedure Renetta Oden NP-Rami[place] -[facility] Work Phone: Start: 11-27-2024 End: 11-27-2024 ambulatory Renetta Oden NP Facility:[facility] Start: 11-23-2024 End: 11-23-[address] Carrillo Driscoll MD Work Phone: [facility] Work Phone: Start: 11-23-2024 End: 11-23-2024 Patient encounter procedure Renetta FRANCISCO -Outpatient Breast Imaging Work Phone: Start: 11-23-2024 End: 11-23-2024 ambulatory [facility] Facility:[facility] Start: 11-19-[address] Silvino Collins MD -[facility] Start: 11-19-2024 End: 11-19-2024 Patient encounter procedure Renetta FRANCISCO -[facility] Work Phone: Start: 11-19-2024 End: 11-19-2024 ambulatory [facility] Facility:[facility] Start: 09-13-2024 End: 09-13-[address] Gerardo Cooley DO -[facility] Work Phone: Start: 09-13-2024 End: 09-13-2024 ambulatory Carrillo Chi Americo Facility:[facility] Start: 09-10-2024 End: 09-10-2024 Patient encounter procedure Miroslava FRANCISCO -Laboratory, Specimen Work Phone: Start: 09-10-2024 Encounter for gynecological examination (general) (routine) without abnormal findings Miroslava Marcano [facility] Start: 09-10-2024 End: 09-10-2024 Patient encounter procedure Miroslava FRANCISCO -[facility] Work Phone: Start: 09-10-2024 End: 09-10-2024 Patient encounter status Miroslava FRANCISCO [facility] Start: 09-10-2024 End: 09-10-2024 ambulatory Carrillo Chi [place] Facility:[facility] Start: 09-10-2024 End: 09-10-2024 ambulatory Carrillo Chi [place] [facility] [facility] Start: 08-22-2024 End: 08-22-[address] Em Hazel MD -[facility] Work Phone: Start: 08-22-2024 End: 08-22-2024 ambulatory [facility]illo [facility] Start: 08-20-[address] Carrillo Driscoll MD Work Phone: [facility] Start: 08-20-2024 End: 08-20-2024 Patient encounter procedure Renetta FRANCISCO -[facility] Work Phone: Start: 08-20-2024 End: 08-20-2024 ambulatory [facility] Start: 08-13-2024 Non-patient / Non-visit Dr. Gerardo awad [facility] Work Phone: Start: 08-13-2024 End: 08-13-[address] Gerardo Cooley [facility] Work Phone: Start: 08-13-2024 End: 08-13-2024 ambulatory [facility] Start: 08-08-2024 End: 08-08-[address] Gerardo Cooley [facility] Work Phone: Start: 08-08-2024 End: 08-08-2024 ambulatory [facility]illo [facility] Start: 08-01-2024 End: 08-01-2024 ambulatory [facility] Facility:[facility] Start: 08-01-2024 End: 08-01-2024 ambulatory [facility]illo [facility] Start: 07-25-2024 End: 07-25-2024 ambulatory [facility]illo [facility] Start: 07-20-2024 ambulatory [facility] Start: 07-18-2024 ambulatory [facility] Start: 07-17-2024 ambulatory [facility] Start: 07-12-2024 End: 07-12-2024 ambulatory [facility] Start: 07-10-2024 ambulatory Gerardo Cooley [facility] Start: 07-10-2024 End: 07-10-2024 ambulatory Gerardo Cooley [facility] Start: 06-28-2024 End: 06-28-2024 ambulatory [facility] Start: 05-31-2024 End: 05-31-2024 ambulatory [facility]illo [facility] Start: 05-24-2024 End: 05-24-2024 ambulatory [facility]illo [facility] Start: 05-10-2024 End: 05-10-2024 ambulatory [facility]illo [facility] Start: 01-06-2024 End: 01-06-[address] Carrillo Driscoll Work Phone: [facility] Work Phone: Start: 01-06-2024 End: 01-06-[address] Carrillo Driscoll Work Phone: [facility] Ultrasound Work Phone: Start: 01-03-2024 End: 01-03-[address] Carrillo Driscoll Work Phone: [facility] Work Phone: Start: 01-03-2024 End: 01-03-[address] Carrillo Driscoll Work Phone: [facility]Outpatient Breast Imaging Work Phone: Start: 12-28-2023 End: 12-28-[address] Carrillo Driscoll Work Phone: [facility] Work Phone: Start: 12-28-2023 End: 12-28-[address] Carrillo Driscoll Work Phone: [facility]-Laboratory, Phy Office 3rd Flr Start: 11-15-2023 End: 11-15-[address] Carrillo Driscoll Work Phone: [facility] Work Phone: Start: 11-15-2023 End: 11-15-[address] Carrillo Driscoll Work Phone: [facility] Work Phone: Start: 10-12-2023 End: 10-12-[address] Carrillo Driscoll Work Phone: [facility] Work Phone: Start: 09-02-2022 End: 09-02-[address] Carrillo Driscoll Work Phone: [facility] Work Phone: Start: 09-02-2022 End: 09-02-[address] Carrillo Driscoll Work Phone: [facility] Start: 07-16-2022 End: 07-16-2022 Emergency department patient visit Dr. Carrillo Driscoll Work Phone: [facility]Emergency Department Start: 07-09-2022 End: 07-09-[address] Carrillo Driscoll Work Phone: [facility] Procedures Date Procedure Procedure Detail Performing Clinician Start: 04-18-2025 X-ray of ankle, thre e or more views Dr. Carrillo Driscoll MD Work Phone: Start: 04-18-2025 X-ray of foot, three or more views Dr. Carrillo Driscoll MD Work Phone: Start: 04-12-2025 Electrophoresis: [id number] Dr. Carrillo Driscoll MD Work Phone: Start: 04-12-2025 Electrophoresis: [id number] Dr. Carrillo Driscoll MD Work Phone: Start: 04-12-2025 Electrophoresis: marisabel ma globulin Dr. Carrillo Driscoll MD Work Phone: Start: 02-27-[address] Carrillo Driscoll MD Work Phone: Start: 02-20-[address] Carrillo small MD Work Phone: Start: 02-13-[address] Jeremy Driscoll MD Work Phone: Start: 02-11-2025 Bilateral mammography Jayesh Driscoll MD Work Phone: Start: 01-25-2025 Plain x-ray of wrist Dr Valentino Driscoll MD Work Phone: Start: 01-17-2025 X-ray of cervical spine Dr. Carrillo Driscoll MD Work Phone: Start: 12-06-[address] Carrillo Driscoll MD Work Phone: Start: 12-04-[address] Carrillo small MD Work Phone: Start: 11-23-[address] Carrillo small MD Work Phone: Start: 11-23-[address] Carrillo Driscoll MD Work Phone: Start: 11-19-[address] Carrillo Driscoll MD Work Phone: Start: 08-20-2024 Measurement of renal function Dr. Carrillo Driscoll MD Work Phone: Comment on above: GFR Calc Start: 06-28-[address] Carrillo renteria MD Work Phone: Start: 06-28-2024 Urnls dip stick/tabl et reagent auto microscopy Dr. Carrillo Driscoll MD Work Phone: Start: 06-28-2024 Assay of phosphorus inorganic Dr. Carrillo Driscoll MD Work Phone: Start: 03-20-2024 Estradiol measurement Jayesh Driscoll MD Work Phone: Comment on above: NORMAL REFERENCE RAN GES FEMALE FOLLICULAR 21.4 - 164.8 pg/mL MID-CYCLE PEAK 49.9 - 367.2 pg/mL LUTEAL 40.2 - 259.0 pg/mL POST-MENOPAUSAL ON MHT <11.0 - 462.1 pg/mL NOT ON MHT <11.0 - 58.3 pg/mL MALE <11.0 - 52.5 pg/mL NOTE:[facility] HAS CONFIRMED THE DRUG FULVETRANT (FASLODEX) MAY CAUSE FALSELY ELEVATED ESTRADIOL RESULTS WHEN USING THIS TEST METHOD. IF PATIENT IS TAKING FULVESTRANT AN ALTERNATIVE METHOD SHOULD BE USED TO DETERMINE ESTRADIOL CONCENTRATION. Start: 01-06-[address] Carrillo Driscoll Work Phone: Start: 01-03-2024 Screening mammography Jayesh Driscoll Work Phone: Start: 11-15-[address] Carrillo small Work Phone: Start: 09-02-2022 MRI of thoracic spine Jayesh Driscoll Work Phone: Start: 07-16-2022 Pelvis X-ray Dr. Carrillo small Work Phone: Start: 07-16-2022 X-ray of chest posteroanterior view Dr. Carrillo Driscoll Work Phone: Start: 07-16-2022 X-ray of lumbar spin e, two or three views Dr. Carrillo Driscoll Work Phone: Start: 07-16-2022 CT of head without contrast Dr. Carrillo Driscoll Work Phone: Start: 06-03-2017 End: 06-09-2017 Drain/inject, joint/bursa Edy Monahan Work Phone: Start: 01-21-2017 End: 01-21-2017 Documentation of current medications Edy Monahan Start: 06-25-2016 End: 07-11-2016 Drain/inject, joint/nagia Edy Monahan Work Phone: Start: 12-26-2015 End: 12-26-2015 Smoking cessation education Edy Monahan Start: 12-26-2015 End: 01-14-2016 Drain/inject, joint/nagia Edy Monahan Work Phone: Start: 11-07-2015 End: 11-18-2015 Drain/inject, joint/bursa Edy Monahan Work Phone: Plan of Treatment Date Care Activity Detail Author Start: 04-18-2025 [facility] Start: 02-27-2025 [facility] Start: 02-20-2025 Patient discharge [facility] Start: 02-13-2025 Anes nerve muscle tdn fascia&bursa forearm wrist ANESTH LOWER ARM SURGERY [facility] Start: 02-13-2025 Incision extensor tendon sheath wrist INCISION OF TENDON SHEATH [facility] Start: 02-13-2025 Patient discharge [facility] Start: 02-11-2025 Digital breast tomosynthesis bilateral BREAST TOMOSYNTHESIS BI [facility] Start: 01-25-2025 Plain x-ray of wrist Wrist min 3 Views [facility] Start: 01-25-2025 XR Wrist GE 3 Views [facility] Start: 11-23-2024 Digital breast tomosynthesis unilateral BREAST TOMOSYNTHESIS UNI [facility] Start: 11-19-2024 Patient referral [facility] Work Phone: Start: 08-20-2024 Patient referral [facility] Work Phone: Start: 04-19-2024 Venous catheter care management [facility] Start: 06-03-2017 End: 06-03-2017 Appointment Appointment [facility] Work Phone: Start: 04-22-2017 End: 04-22-2017 Appointment Appointment [facility] Work Phone: Start: 03-23-2017 End: 03-23-2017 Appointment Appointment [facility] Work Phone: Start: 03-09-2017 End: 03-09-2017 Appointment Appointment [facility] Work Phone: Start: 02-21-2017 End: 02-21-2017 Appointment Appointment [facility] Work Phone: Start: 02-08-2017 End: 02-08-2017 Appointment Appointment [facility] Work Phone: Start: 02-08-2017 End: 02-08-2017 Appointment Appointment [facility] Work Phone: Start: 12-29-2016 End: 12-29-2016 Occupational Therapy General Occupational [facility], [address] [place] [address], [id number] [facility] Work Phone: Start: 12-26-2015 End: 12-26-2015 X-ray exam of elbow X-Ray, Elbow [facility] Work Phone: CBC W Auto Different ial panel - Blood [facility] Comprehensive metabo lic 2000 panel - Serum or Plasma [facility] Breast - bilatera l Diagnostic [facility] Breast Diagnostic [facility] Patient Education [facility] Work Phone: Patient referral [facility] Work Phone: Ultrasonography guid ed biopsy of breast [facility] Payers Date Payer Category Payer Self-pay [id number] 2024 Unknown [id number] 2023 Private Health Insurance [id number] 2016 Unknown [id number] Private Health Insurance [facility] [id number] Unknown [id number] Unknown [facility] P[employer] PLAN [id number] Unknown [id number] 2.16.840.1.719544.3.579.2.4 62 Unknown [id number] 2.16.840.1.020263.3.579.2.4 62 Unknown [id number] 2.16.840.1.153851.3.579.2.4 62 Unknown [id number] 2.16.840.1.451125.3.579.2.4 62 Unknown [id number] 2.16.840.1.156541.3.579.2.4 62 Unknown [id number] 2.16.840.1.229169.3.579.2.4 62 Unknown [id number] 2.16.840.1.353050.3.579.2.4 62 Unknown [id number] 2.16.840.1.029852.3.579.2.4 62 Unknown [id number] 2.16.840.1.092187.3.579.2.4 62 Unknown [id number] 2.16.840.1.847399.3.579.2.4 62 Unknown [id number] 2.16.840.1.228353.3.579.2.4 62 Unknown [id number] 2.16.840.1.114224.3.579.2.4 62 Unknown [id number] 2.16.840.1.996411.3.579.2.4 62 Unknown [id number] 2.16.840.1.613326.3.579.2.4 62 Unknown [id number] 2.16.840.1.052319.3.579.2.4 62 Unknown [id number] 2.16.840.1.726236.3.579.2.4 62 Unknown [id number] 2.16.840.1.711525.3.579.2.4 62 Unknown [id number] 2.16.840.1.804094.3.579.2.4 62 Unknown [id number] 2.16.840.1.470185.3.579.2.4 62 Unknown [id number] 2.16.840.1.585481.3.579.2.4 62 Unknown [id number] 2.16.840.1.177545.3.579.2.4 62 Unknown [id number] 2.16.840.1.328436.3.579.2.4 62 Unknown [id number] 2.16.840.1.180422.3.579.2.4 62 Unknown [id number] 2.16.840.1.566377.3.579.2.4 62 Unknown [id number] 2.16.840.1.019343.3.579.2.4 62 Unknown [id number] 2.16.840.1.588477.3.579.2.4 62 Unknown [id number] 2.16.840.1.570844.3.579.2.4 62 Unknown [id number] 2.16.840.1.456295.3.579.2.4 62 Unknown [id number] 2.16.840.1.911358.3.579.2.4 62 Unknown [id number] 2.16.840.1.022605.3.579.2.4 62 Unknown [id number] 2.16.840.1.986025.3.579.2.4 62 Unknown [id number] 2.16.840.1.803439.3.579.2.4 62 Unknown [id number] 2.16.840.1.593992.3.579.2.4 62 Unknown [id number] 2.16.840.1.684812.3.579.2.4 62 Unknown [id number] 2.16.840.1.299924.3.579.2.4 62 Unknown [id number] 2.16.840.1.313462.3.579.2.4 62 Unknown [id number] 2.16.840.1.133986.3.579.2.4 62 Unknown [id number] 2.16.840.1.668564.3.579.2.4 62 Unknown [id number] 2.16.840.1.893024.3.579.2.4 62 Unknown [id number] 2.16.840.1.086292.3.579.2.4 62 Unknown [id number] 2.16.840.1.652368.3.579.2.4 62 Unknown [id number] 2.16.840.1.695772.3.579.2.4 62 Unknown [id number] 2.16.840.1.675801.3.579.2.4 62 Unknown [id number] 2.16.840.1.829662.3.579.2.4 62 Unknown [id number] 2.16.840.1.072978.3.579.2.4 62 Unknown [id number] 2.16.840.1.158044.3.579.2.4 62 Unknown [id number] 2.16.840.1.156685.3.579.2.4 62 Unknown [id number] 2.16.840.1.625531.3.579.2.4 62 Unknown [id number] 2.16.840.1.516209.3.579.2.4 62 Unknown [id number] 2.16.840.1.471849.3.579.2.4 62 Unknown [id number] 2.16.840.1.726649.3.579.2.4 62 Unknown [id number] 2.16.840.1.401132.3.579.2.4 62 Social History Date Type Detail Facility Start: 07-16-2022 End: 11-15-2023 Tobacco smoking status NHIS Unknown if ever smoked [facility] Start: 02-11-2020 Non-smoker [facility] Start: 1970 Sex Assigned At Female [facility] Start: 09-10-2024 End: 04-18-2025 Tobacco smoking status NHIS Ex-smoker (finding) [facility] Start: 12-03-2024 End: 12-12-2024 Sex Female (finding) [facility] Not [facility] NEGATED: Highlighted row Not [facility] Medical Equipment Procedure Code Equipment Code Equipment Origin al Text Equipment Identifier Dates Lumpectomy, breast, bilateral, after needle localization, with bilateral sentinel and Ligation clip, metallic [id number] FDA Start: 03-13-2024 Lumpectomy, breast, bilateral, after needle localization, with bilateral sentinel and Ligation clip, metallic [id number] FDA Start: 03-13-2024 Insertion, vascular access port [id number]) Vascular port/catheter [id number] FDA Start: 04-16-2024 CHLOE MUNGUIA LG FDA Start: 02-12-2020 CHLOE MUNGUIA FDA Start: 02-12-2020 CUTTER,LINEAR NTLC75 FDA Start: 02-12-2020 RELOAD, SR75 SELECTABLE FDA Start: 02-12-2020 RELOAD, SR75 SELECTABLE FDA Start: 02-12-2020 RELOAD, SR75 SELECTABLE FDA Start: 02-12-2020 STAPBERNABE,TX60B FDA Start: 02-12-2020 CHLOE MUNGUIA LG FDA Start: 02-12-2020 CHLOE MUNGUIA FDA Start: 02-12-2020 CUTTER,LINEAR NTLC75 FDA Start: 02-12-2020 RELOAD, SR75 SELECTABLE FDA Start: 02-12-2020 RELOAD, SR75 SELECTABLE FDA Start: 02-12-2020 RELOAD, SR75 SELECTABLE FDA Start: 02-12-2020 STAPLER,TX60B FDA Start: 02-12-2020 CHLOE MUNGUIA LG FDA Start: 02-12-2020 CHLOE MUNGUIA FDA Start: 02-12-2020 CUTTER,LINEAR NTLC75 FDA Start: 02-12-2020 RELOAD, SR75 SELECTABLE FDA Start: 02-12-2020 RELOAD, SR75 SELECTABLE FDA Start: 02-12-2020 RELOAD, SR75 SELECTABLE FDA Start: 02-12-2020 STAPLER,TX60B FDA Start: 02-12-2020 CLIP,CHLOE LAY FDA Start: 02-12-2020 CLIP,CHLOE LAY FDA Start: 02-12-2020 CUTTER,LINEAR NTLC75 FDA Start: 02-12-2020 RELOAD, SR75 SELECTABLE FDA Start: 02-12-2020 RELOAD, SR75 SELECTABLE FDA Start: 02-12-2020 RELOAD, SR75 SELECTABLE FDA Start: 02-12-2020 STAPLER,TX60B FDA Start: 02-12-2020 CLIP,CHLOE LAY FDA Start: 02-12-2020 CLIP,CHLOE LAY FDA Start: 02-12-2020 CUTTER,LINEAR NTLC75 FDA Start: 02-12-2020 RELOAD, SR75 SELECTABLE FDA Start: 02-12-2020 RELOAD, SR75 SELECTABLE FDA Start: 02-12-2020 RELOAD, SR75 SELECTABLE FDA Start: 02-12-2020 STAPLER,TX60B FDA Start: 02-12-2020 CLIP,CHLOE LAY FDA Start: 02-12-2020 CLIP,CHLOE LAY FDA Start: 02-12-2020 CUTTER,LINEAR NTLC75 FDA Start: 02-12-2020 RELOAD, SR75 SELECTABLE FDA Start: 02-12-2020 RELOAD, SR75 SELECTABLE FDA Start: 02-12-2020 RELOAD, SR75 SELECTABLE FDA Start: 02-12-2020 STAPLER,TX60B FDA Start: 02-12-2020 CLIPCHLOE LG FDA Start: 02-12-2020 CLIP,CHLOE LAY FDA Start: 02-12-2020 CUTTER,LINEAR NTLC75 FDA Start: 02-12-2020 RELOAD, SR75 SELECTABLE FDA Start: 02-12-2020 RELOAD, SR75 SELECTABLE FDA Start: 02-12-2020 RELOAD, SR75 SELECTABLE FDA Start: 02-12-2020 STAPLER,TX60B FDA Start: 02-12-2020 CLIPCHLOE LG FDA Start: 02-12-2020 CLIPCHLOE FDA Start: 02-12-2020 CUTTER,LINEAR NTLC75 FDA Start: 02-12-2020 RELOAD, SR75 SELECTABLE FDA Start: 02-12-2020 RELOAD, SR75 SELECTABLE FDA Start: 02-12-2020 RELOAD, SR75 SELECTABLE FDA Start: 02-12-2020 STAPLER,TX60B FDA Start: 02-12-2020 CLIP,CHLOE LAY FDA Start: 02-12-2020 CLIP,CHLOE LAY FDA Start: 02-12-2020 CUTTER,LINEAR NTLC75 FDA Start: 02-12-2020 RELOAD, SR75 SELECTABLE FDA Start: 02-12-2020 RELOAD, SR75 SELECTABLE FDA Start: 02-12-2020 RELOAD, SR75 SELECTABLE FDA Start: 02-12-2020 STAPLER,TX60B FDA Start: 02-12-2020 CLIP,CHLOE LAY FDA Start: 02-12-2020 CLIP,CHLOE LAY FDA Start: 02-12-2020 CUTTER,LINEAR NTLC75 FDA Start: 02-12-2020 RELOAD, SR75 SELECTABLE FDA Start: 02-12-2020 RELOAD, SR75 SELECTABLE FDA Start: 02-12-2020 RELOAD, SR75 SELECTABLE FDA Start: 02-12-2020 STAPLER,TX60B FDA Start: 02-12-2020 CLIP,CHLOE LAY FDA Start: 02-12-2020 CLIP,CHLOE LAY FDA Start: 02-12-2020 CUTTER,LINEAR NTLC75 FDA Start: 02-12-2020 RELOAD, SR75 SELECTABLE FDA Start: 02-12-2020 RELOAD, SR75 SELECTABLE FDA Start: 02-12-2020 RELOAD, SR75 SELECTABLE FDA Start: 02-12-2020 STAPLER,TX60B FDA Start: 02-12-2020 CLIP,CHLOE LAY FDA Start: 02-12-2020 CLIP,CHLOE LAY FDA Start: 02-12-2020 CUTTER,LINEAR NTLC75 FDA Start: 02-12-2020 RELOAD, SR75 SELECTABLE FDA Start: 02-12-2020 RELOAD, SR75 SELECTABLE FDA Start: 02-12-2020 RELOAD, SR75 SELECTABLE FDA Start: 02-12-2020 STAPLER,TX60B FDA Start: 02-12-2020 CLIP,CHLOE LAY FDA Start: 02-12-2020 CLIPCHLOE FDA Start: 02-12-2020 CUTTER,LINEAR NTLC75 FDA Start: 02-12-2020 RELOAD, SR75 SELECTABLE FDA Start: 02-12-2020 RELOAD, SR75 SELECTABLE FDA Start: 02-12-2020 RELOAD, SR75 SELECTABLE FDA Start: 02-12-2020 STAPLER,TX60B FDA Start: 02-12-2020 CLIP,KATIEMARCUS LAY FDA Start: 02-12-2020 CLIP,KATIEMARCUS Jayesh LAY FDA Start: 02-12-2020 CUTTER,LINEAR NTLC75 FDA Start: 02-12-2020 RELOAD, SR75 SELECTABLE FDA Start: 02-12-2020 RELOAD, SR75 SELECTABLE FDA Start: 02-12-2020 RELOAD, SR75 SELECTABLE FDA Start: 02-12-2020 STAPLER,TX60B FDA Start: 02-12-2020 CLIP,KATIEMARCUS LAY FDA Start: 02-12-2020 CLIP,KATIEMARCUS LAY FDA Start: 02-12-2020 CUTTER,LINEAR NTLC75 FDA Start: 02-12-2020 RELOAD, SR75 SELECTABLE FDA Start: 02-12-2020 RELOAD, SR75 SELECTABLE FDA Start: 02-12-2020 RELOAD, SR75 SELECTABLE FDA Start: 02-12-2020 STAPLER,TX60B FDA Start: 02-12-2020 CLIP,KATIEMARCUS LAY FDA Start: 02-12-2020 CLIP,CHLOE [place] Jayesh LAY FDA Start: 02-12-2020 CUTTER,LINEAR NTLC75 FDA Start: 02-12-2020 RELOAD, SR75 SELECTABLE FDA Start: 02-12-2020 RELOAD, SR75 SELECTABLE FDA Start: 02-12-2020 RELOAD, SR75 SELECTABLE FDA Start: 02-12-2020 STAPLER,TX60B FDA Start: 02-12-2020 CLIP,KATIEMARCUS LAY FDA Start: 02-12-2020 CLIP,KATIEMARCUS Jayesh LAY FDA Start: 02-12-2020 CUTTER,LINEAR NTLC75 FDA Start: 02-12-2020 RELOAD, SR75 SELECTABLE FDA Start: 02-12-2020 RELOAD, SR75 SELECTABLE FDA Start: 02-12-2020 RELOAD, SR75 SELECTABLE FDA Start: 02-12-2020 STAPLER,TX60B FDA Start: 02-12-2020 CLIP,CHLOE LAY FDA Start: 02-12-2020 CLIP,CHLOE LAY FDA Start: 02-12-2020 CUTTER,LINEAR NTLC75 FDA Start: 02-12-2020 RELOAD, SR75 SELECTABLE FDA Start: 02-12-2020 RELOAD, SR75 SELECTABLE FDA Start: 02-12-2020 RELOAD, SR75 SELECTABLE FDA Start: 02-12-2020 STAPLER,TX60B FDA Start: 02-12-2020 CLIP,CHLOE LAY FDA Start: 02-12-2020 CLIP,CHLOE LAY FDA Start: 02-12-2020 CUTTER,LINEAR NTLC75 FDA Start: 02-12-2020 RELOAD, SR75 SELECTABLE FDA Start: 02-12-2020 RELOAD, SR75 SELECTABLE FDA Start: 02-12-2020 RELOAD, SR75 SELECTABLE FDA Start: 02-12-2020 STAPLER,TX60B FDA Start: 02-12-2020 CLIP,CHLOE LAY FDA Start: 02-12-2020 CLIP,CHLOE LAY FDA Start: 02-12-2020 CUTTER,LINEAR NTLC75 FDA Start: 02-12-2020 RELOAD, SR75 SELECTABLE FDA Start: 02-12-2020 RELOAD, SR75 SELECTABLE FDA Start: 02-12-2020 RELOAD, SR75 SELECTABLE FDA Start: 02-12-2020 STAPLER,TX60B FDA Start: 02-12-2020 CLIPCHLOE LG FDA Start: 02-12-2020 CLIP,CHLOE LAY FDA Start: 02-12-2020 CUTTER,LINEAR NTLC75 FDA Start: 02-12-2020 RELOAD, SR75 SELECTABLE FDA Start: 02-12-2020 RELOAD, SR75 SELECTABLE FDA Start: 02-12-2020 RELOAD, SR75 SELECTABLE FDA Start: 02-12-2020 STAPLER,TX60B FDA Start: 02-12-2020 CLIPCHLOE LG FDA Start: 02-12-2020 CLIPCHLOE FDA Start: 02-12-2020 CUTTER,LINEAR NTLC75 FDA Start: 02-12-2020 RELOAD, SR75 SELECTABLE FDA Start: 02-12-2020 RELOAD, SR75 SELECTABLE FDA Start: 02-12-2020 SR CHARLES75 SELECTABLE FDA Start: 02-12-2020 MATTHEW HUNTLEY60Cristóbal FDA Start: 02-12-2020 Goals Date Patient Goal Desired Activity /State Mental Status Date Assessment Result Facility 02-20-2025 Cognitive function Level Of Cons ciousness Awake;Alert [facility] Work Phone: 02-20-2025 Cognitive function Patient Orimichaelle tation Person;Place;Time [facility] Work Phone: 02-13-2025 Cognitive function Voice/Name [facility] Work Phone: Clinical Notes 08-13-2024 to 04-18-2025 Note Date & Type Note Facility 04-18-2025 Discharge summary [facility] 04-18-2025 Radiology Diagnostic study note [facility] Imaging Services [address] [place] [address] Foot min 3 Views MR#: [id number] Acct: [id number] Name: FEDE LUIS Rep #: [id number] : [id number] F [id number] From: Indio Álvarez MD PCP: Dr. Carrillo Driscoll MD Status: REG E R Study:Foot min 3 Views Date of Exam: 04/05 Exam# [id number] Ordering Dr: Scot Gonzalez DO PROCEDURE: FOOT MIN 3 VIEWS 04/18/2025 REASON FOR EXAM: PAIN TECHNIQUE: FOOT MIN 3 VIEWS Laterality: Right COMPARISON: None FINDINGS: Bones: No visible fracture. No suspicious bone lesion. Joints: Normal alignment. Soft tissues: Soft tissues are unremarkable. Other: RAD/Foot min 3 Views IMPRESSION: NO ACUTE FRACTURE OR DISLOCATION. Reading Location: [facility] CC: Dr. Scot Schreiber DO; Dr. Carrillo Driscoll MD ~ Clother In: Signed [facility] 04-18-2025 Radiology Diagnostic study note [facility] Imaging Services [address] [place] [address] Ankle min 3 Views MR#: [id number] Acct: [id number] Name: FEDE LUIS Rep #: [id number] : [id number] F [id number] From: Indio Álvarez MD PCP: Dr. Carrillo Driscoll MD Status: REG E R Study:Ankle min 3 Views Date of Exam: Exam# [id number] Ordering Dr: Scot Gonzalez DO PROCEDURE: ANKLE MIN 3 VIEWS 04/18/2025 REASON FOR EXAM: PAIN TECHNIQUE: ANKLE MIN 3 VIEWS Laterality: Right COMPARISON: None FINDINGS: Bones: No fracture or bony destruction. Joints: Normal alignment. Mortise appears intact. No effusion. Soft tissues: Soft tissues are unremarkable. Other: RAD/Ankle min 3 Views IMPRESSION: NO ACUTE FRACTURE OR DISLOCATION. Reading Location: [id number] CC: Dr. Scot Schreiber DO; Dr. Carrillo Driscoll MD ~ Clother In: Signed [facility] 02-20-2025 Consult note [facility] 02-20-2025 Consult note Note Date/Time February 20, 2025 8:42am [facility] Medical Records Department [address] [place] [address] Pre-Anesthesia Evaluation 02/20/25 0842 MR#: [id number] Acct: [id number] Name: FEDE LUIS Rep #:[id number] 2 : 1970 54 From: Thiago Foley MD PCP: Dr. Carrillo Driscoll MD Status:REG S DC Y Race: C Location: [place] [address] ASA Classification* ASA Classification ASA Classification: 2 Assessment & Plan Anesthesia* Anesthesia Assessment Anesthesia Assessment: Discussed sedation and/or anesthesia options, risks, benefits, and alternatives with patient/parents/legal guardian/POA. Questions invited. The patient/parents/legal guardian/POA seems to understand and agrees to proceedwith anesthesia plan. Reviewed the physical assessment, medical history, allergy history and patient home medications list prior to surgery/procedure/anesthetic and documented any changes. Performed airway and anesthesia risk assessments. Anesthesia Type Anesthesia Type: MAC Anesthesia Focused Assessment* Temperature: 97.9 F Pulse Rate: 97 Blood Pressure: 148/84 Respiratory Rate: 18 Pulse Ox: 98 Airway Assessment Mouth opens: >3 cm Mallampati Score: II Labs Anesthesia Preop lab: CBC WBC 6.2 K/mm3 (4.4-11.0) 01/03/25 13:48 01/03/25 RBC 4.26 M/mm3 (4.2-5.4) 01/03/25 13:48 01/03/25 Hgb 13.5 g/dL (12.0-15.0) 01/03/25 13:48 01/03/25 Hct 39.5 % (37-47) 01/03/25 13:48 01/03/25 Plt Count 382 K/mm3 (150-450) 01/03/25 13:48 01/03/25 CHEMISTRY Potassium 4.7 mmol/L (3.3-5.1) 01/03/25 13:48 01/03/25 Sodium 139 mmol/L (133-145) 01/03/25 13:48 01/03/25 Magnesium 2.1 mg/dL (1.6-2.6) 07/12/24 13:55 07/12/24 Phosphorus 3.2 mg/dL (2.5-4.9) 06/28/24 09:00 06/28/24 BUN 26 mg/dL (4-19) H 01/03/25 13:48 01/03/25 Creatinine 0.56 mg/dL (0.70-1.20) L 01/03/25 13:48 Glucose 106 mg/dL (70-99) H 01/03/25 13:48 01/03/25 POC Glucose 89 mg/dL (70-110) 02/12/20 06:10 02/12/20 TSH 1.610 uIU/mL (0.300-4.200) 01/03/25 13:48 12/12 01/04 COAG PT 12.8 SECONDS (11.7-14.9) 07/14/16 17:05 Urine Test Negative Negative 02/08/17 05:40 02/08/17 Pre-Assessment Diagnosis/Proposed Procedure Planned Operative Procedure(s): CSCOPE Anesthesia History Anesthesia History - fitter up: Anesthesia History - fitter up Hx Hospitalization No 02/07/25 11:28 Any Problems With Anesthesia No 02/07/25 11:28 Cholinesterase deficiency No 02/07/25 11:28 You/Your Family Experience No 02/07/25 11:28 fever (hyperthermia) with Relationship Recent Exposure to Contagious No 02/20/25 08:25 Disease Does patient have nerve No 02/07/25 11:28 stimulator Patient instructed to have device shut off --Does patient have Pacemaker or ICD? When Was Last Pacemaker Check QUESTION #4 FULL TEXT: You/Your Family Experience fever (hyperthermia) with Anesthesia Last Oral Intake Last Oral intake: Last Oral Intake NPO since Meds taken in AM with sips of water? Meds patient instructed to take am of surgery PONV PONV - fitter up: PONV - fitter up Female Yes 02/07/25 11:28 HX of Motion Sickness No 02/07/25 11:28 HX of N/V After Surgery No 02/07/25 11:28 Non-Smoker Yes 02/07/25 11:28 Duration of Surgery greater No 02/07/25 11:28 than 60 minutes Number of Risk Factors 2 02/07/25 11:28 PONV Score Moderate Risk 02/07/25 11:28 Height & Weight Height & Weight: Anesthesia: Height & Weight Height 5 ft 8 in 02/20/25 08:26 Weight: 73.936 kg 02/20/25 08:26 Body Mass Index (BMI) 24.7 02/20/25 08:26 Respiratory Assessment Respiratory Assessment - fitter up: Respiratory Tract Infection Hx - fitter up Hx Respiratory Tract Infection No 02/07/25 11:28 STOP Sleep Apnea STOP Sleep Apnea - fitter up: STOP Sleep Apnea - fitter up Hx Hypertension No 02/07/25 11:28 Hx Sleep Apnea No 02/07/25 11:28 CPAP No 02/13/25 12:29 BIPAP Do you snore loudly (louder No 02/07/25 11:28 than talking or can be heard Do you often feel tired/ Yes 02/07/25 11:28 fatigued/ sleepy during daytime? Has anyone observed you stop No 02/07/25 11:28 breathing during sleep? STOP Results Negative 02/07/25 11:28 QUESTION #5 FULL TEXT : Do you snore loudly (louder than talking or can be heard through closed doors)? 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 Specify any problems Hx of Preganancy in last 3 No 02/07/25 11:28 Months Nurse Filling Out Transfusion DSCHRIBER 02/07/25 11:28 & Questions: Date: 02/07/25 02/07/25 11:28 Time: 11:28 02/07/25 11:28 Patient unable to answer at this time (ie. confused, unrespo /Reproduction History /Reproductive History - fitter up: /Reproductive Hx- fitter up Hx Now No 02/07/25 11:28 Gestational Age (in weeks): EDC: Hx Hx Para Hx Section SAB No 02/07/25 11:28 Active Medications Active Medications: Current Medications Generic Name Dose Route Start Last Admin Trade Name Freq PRN Reason Stop Dose Admin Lactated Ringer's 1,000 mls @ 15 mls/hr 02/20/25 08:15 02/20/25 08:36 IV 15 mls/hr .Q48H DEEPAK Administration PFSH Medical History Anemia Bilateral leg weakness History of breast cancer Breast pain, right Well woman exam Urinary incontinence Dysuria Encounter for chemotherapy management Diarrhea due to drug Hypokalemia 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 Mucositis CINV (chemotherapy-induced nausea and vomiting) Encounter for education Post-menopausal Cancer Arthritis Migraine headache Former smoker History of pain when walking Mass of right breast History of tobacco use Encounter for screening for malignant neoplasm of lung History of kidney stones History of Thoracic Fracture Back pain Anxiety Endometriosis Home Medications ?Medication ?Instructions ?Recorded ?Last Taken ?Type duloxetine 30 mg capsule,delayed 30 mg PO DAILY anx 02/19/25 History release multivitamin with folic acid 400 1 tab PO DAILY Check with primary 07/19/16 02/19/25 History mcg tablet doctor tizanidine 4 mg capsule (Zanaflex) 4 mg PO QHS PRN Rossy ck with primary 01/18/20 02/19/25 History doctor meloxicam 7.5 mg tablet 7.5 mg PO DAILY 10/28/2007/06 History hydrocodone-acetaminophen 5-325mg 1 tab PO BID PRN maureen n 05/10/24 Unknown History 5mg-325mg anastrozole 1 mg tablet 1 mg PO DAILY #90 tabs 08/2002/19/25 Rx calcium carbonate 600 mg PO DAILY Help with emerita ne loss 12/04/24 02/18/25 History buprenorphine 20 mcg/hour weekly 1 patch topical GALEANA 02/17/25 History transdermal patch (Butrans) oxycodone 5 mg tablet 5 mg PO Q12H PRN pain 5 days #10 02/13/25 Unknown Rx tabs Allergy/AdvReac Type Severity Reaction Status Date / Time cephalexin (From Keflex) Allergy Rash Verified 02/20/25 08:23 Family History Mother Diabetes Arthritis Anemia Hypertension Grandfather Diabetes CVA (cerebral vascular accident) Grandmother Arthritis Surgical History History of surgery on right wrist History of vascular access device History of lumpectomy of right breast Hx of thumb surgery H/O colectomy History of appendectomy H/O elbow surgery clavicle surgery History of back surgery H/O shoulder surgery History of left oophorectomy Social History current occupational status: unemployed Smoking Status: Former smoker alcohol intake: never substance use type: does not use caffeine: Yes what type of physical activity do you participate in: walking and other details: Horseback Riding seatbelt use: always do you feel safe at home: Yes additional social history: Review of Systems (Anesthesia) ROS Narrative System reviewed and no additional complaints, except as documented. 02/20/25 0842 <Electronically signed by Thiago Foley MD > Date _ Thiago Foley MD Cosigner Signature: Date CC: ~ Signed [facility] Work Phone: [phone]) 822-983206-11-2025 Procedure note [facility] Medical Records Department [address] [place] [address] Colonoscopy Report MR#: [id number] Acct: [id number] Name: FEDE LUIS Rep #:[id number] 8 : 1970 54 From: Em Hazel MD PCP: Dr. Carrillo Driscoll MD Status:REG S DC Patient Name: Fede Luis Procedure Date: 02/20/2025 10:17 AM Date of : 1970 Age: 54 Procedure: Colonoscopy Indications: High risk colon cancer surveillance: Personal history of colonic polyps Providers: Em Hazel MD Referring MD: Carrillo Driscoll MD Medicines: Monitored Anesthesia Care Patient Profile: This is a 54 year old female. Last Colonoscopy: 2019. Complications: No immediate complications. Procedure: Pre-Anesthesia Assessment: - Prior to the procedure, a History and Physical was performed, and patient medications and allergies were reviewed. The patient's tolerance of previous anesthesia was also reviewed. The risks and benefits of the procedure and the sedation options and risks were discussed with the patient. All questions were answered, and informed consent was obtained. Prior Anticoagulants: The patient has taken no anticoagulant or antiplatelet agents. ASA Grade Assessment: Per anesthesia. After reviewing the risks and benefits, the patient was deemed in satisfactory condition to undergo the procedure. After I obtained informed consent, the scope was passed under direct vision. Throughout the procedure, the patient's blood pressure, pulse, and oxygen saturations were monitored continuously. The Colonoscope was introduced through the anus and advanced to the ileocolonic anastomosis. The colonoscopy was performed without difficulty. The patient tolerated the procedure well. The quality of the bowel preparation was good. Scope In: 10:01:02 AM Scope Withdrawal Time 0 hours 7 minutes 1 second Scope Out: 10:11:04 AM Total Procedure Duration Time 0 hours 10 minutes 2 seconds Findings: The perianal and digital rectal examinations were normal. There was evidence of a prior wsgc-yu-[id number] ileo-colonic anastomosis in the transverse colon. This was patent and was characterized by healthy appearing mucosa. The entire examined colon appeared normal. Impression: - Patent uuly-il-qcnp ileo-colonic anastomosis, characterized by healthy appearing mucosa. - The entire examined colon is normal. - No specimens collected. Recommendation: - Discharge patient to home. - Resume previous diet. - Continue present medications. - Repeat colonoscopy in 10 years for screening purposes. Procedure Code(s): --- Professional --- G0105, PT, Colorectal cancer screening; colonoscopy on individual at high risk Diagnosis Code(s): --- Professional --- Z86.010, Personal history of colonic polyps Z98.0, Intestinal bypass and anastomosis status CPT copyright 2021 [employer]. All rights reserved. The codes documented in this report are preliminary and upon regional director of admissions review may be revised to meet current compliance requirements. MD Em Loyola MD 02/20/2025 10:24:32 AM This report has been signed electronically. Number of Addenda: 0 Note Initiated On: 02/20/2025 10:17 AM 02/20/25 1024 Date _ Em Hazel MD Cosigner Signature: Date (if indicated) CC: Dr. Carrillo Driscoll MD; Dr. Em Hazel MD ~ Date Dictated: 02/20/25 1017 Date Transcribed: Clother In: TR Vance [facility]06-11-2025 Procedure note [facility] Medical Records Department [address] [place] [address] Operative Report - CC Letter MR#: [id number] Acct: [id number] Name: FEDE LUIS Rep #:[id number] : 1970 54 From: Em Hazel MD PCP: Dr. Carrillo Driscoll MD Status:REG S DC 02/20/2025 Carrillo Driscoll MD [address] [place] [address] Re : Colonoscopy procedure for Fede Luis Dear Dr. Driscoll This procedure was performed on Tuesday, February 20, 2025. My impressions and recommendations are as follows: Impressions : - Patent gamp-up-buzc ileo-colonic anastomosis, characterized by healthy appearing mucosa. - The entire examined colon is normal. - No specimens collected. Recommendations : - Discharge patient to home. - Resume previous diet. - Continue present medications. - Repeat colonoscopy in 10 years for screening purposes. My findings are described in the full procedure note, which is enclosed. If I can be of further assistance, please feel free to contact me at Doctor phone number(s): , Work: . Sincerely, MD Em Loyola MD 02/20/2025 10:24:32 AM This report has been signed electronically. 02/20/25 1024 Date _ Em Hazel MD Cosigner Signature: Date (if indicated) CC: Dr. Carrillo Driscoll MD; Dr. Em Hazel MD ~ Date Dictated: 02/20/25 1017 Date Transcribed: Clother In: TR Signed [facility]06-11-2025 Consult note [facility] Medical Records Department [address] [place] [address] Anesthesia Postop Eval I 02/20/25 1020 MR#: [id number] Acct: [id number] Name: FEDE LUIS Daljit Rep #:[id number] 2 : 1970 54 From: Can Steinberg PCP: Dr. Carrillo Driscoll MD Status:REG S DC Y Race: C Location: [place] [address] Anesthesia: Postop Eval I Current Vital Signs Temperature: 98.8 F Pulse Rate: 88 Blood Pressure: 117/84 Respiratory Rate: 16 Pulse Ox: 100 Oxygen Delivery Method: Room Air Assessment Airway patent: Yes Spontaneous unlabored respirations: Yes Mental status: Awake and Calm nausea: No Vomiting: No Anesthesia Complication: Yes Anesthesia Complication Comment:: in situ IV infiltrated, case completed before 2nd IV started Fluid Hydration Crystalloid volume administer (ml): 400 Total IV fluid infused: 400 Progress Note Anesthesia document: Postop Eval 1 completed: Yes 02/20/25 1021 > Date _ Can Darden Signature: Date CC: ~ Signed [facility]06-11-2025 History and physical note [facility] Medical Records Department [address] [place] [address] History & Physical Exam 02/20/25 0913 MR#: [id number] Acct: [id number] Name: MINOFEDE E Rep #:[id number] 8 : 1970 54 From: Em Hazel MD PCP: Dr. 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 Patient is having bowel movements daily denies any blood. Patient denies any family history of colon cancer in an immediate family patient's aunt did have colon cancer., Dad did have polyps. Patient denies any chronic abdominal pain/nausea/vomiting/reflux. 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 Mucositis CINV (chemotherapy-induced nausea and vomiting) Encounter for education Post-menopausal Cancer Arthritis Migraine headache Former smoker History of pain when walking Mass of right breast History of tobacco use Encounter for screening for malignant neoplasm of lung History of kidney stones History of Thoracic Fracture Back pain Anxiety Endometriosis Home Medications ?Medication ?Instructions ?Recorded ?Last Taken ?Type duloxetine 30 mg capsule,delayed 30 mg PO DAILY anx 02/19/25 History release multivitamin with folic acid 400 1 tab PO DAILY Check with primary 07/19/16 02/19/25 History mcg tablet doctor tizanidine 4 mg capsule (Zanaflex) 4 mg PO QHS PRN Rossy ck with primary 01/18/20 02/19/25 History doctor meloxicam 7.5 mg tablet 7.5 mg PO DAILY 10/28/2007/06 History hydrocodone-acetaminophen 5-325mg 1 tab PO BID PRN maureen n 05/10/24 Unknown History 5mg-325mg anastrozole 1 mg tablet 1 mg PO DAILY #90 tabs 08/2002/19/25 Rx calcium carbonate 600 mg PO DAILY Help with emerita ne loss 12/04/24 02/18/25 History buprenorphine 20 mcg/hour weekly 1 patch topical GALEANA 02/17/25 History transdermal patch (Butrans) oxycodone 5 mg tablet 5 mg PO Q12H PRN pain 5 days #10 02/13/25 Unknown Rx tabs Allergy/AdvReac Type Severity Reaction Status Date / Time cephalexin (From Keflex) Allergy Rash Verified 02/20/25 08:23 Family History Mother Diabetes Arthritis Anemia Hypertension Grandfather Diabetes CVA (cerebral vascular accident) Grandmother Arthritis Surgical History History of surgery on right wrist History of vascular access device History of lumpectomy of right breast Hx of thumb surgery H/O colectomy History of appendectomy H/O elbow surgery clavicle surgery History of back surgery H/O shoulder surgery History of left oophorectomy Social History current occupational status: unemployed Smoking Status: Former smoker alcohol intake: never substance use type: does not use caffeine: Yes what type of physical activity do you participate in: walking and other details: Horseback Riding seatbelt use: always do you feel safe at home: Yes additional social history: Past Medical/Surgical History Planned Operation Planned Operative Procedure(s): CSCOPE S.O.S: No Previous Hospitalizations/Surgeries HX Hospitalizations: No HX of Surgeries: MICRODISCECTOMY 2002 BACK SURGERY 2004 PLATE IN CLAVICLE 2006, REMOVAL 2006 2010 REMOVAL SOFT TISSUE MASS LEFT GROIN 07/26/2016 LAPAROSCOPIC LEFT OVARIAN CYSTECTOMY, SALPING-OOPHORECTOMY LEFT L ELBOW ARTHROSCOPY, LATERAL EPICONDRYLAR RELEASE 02/201702/07/19 COLONOSCOPY Any Problems With Anesthesia: No You/Your Family Experience Fever (Hyperthermia) With Anes: No Cholinesterase deficiency: No Cardiovascular Hx Chest Pain within Last 2 months: No Hx of Irregular Heartbeat and/or Afib: No Hx Heart Attack: No Hx Congestive Heart Failure: No Hx Rheumatic Fever: No Hx Hypertension: No Hx Internal Defibrillator: No Hx Pacemaker: No Hx Cardiac Catheterization: No Hx Cardiac Surgery/Stents/Etc.: No Hx Stress Test: No Hx Pain in Legs when Walking/Leg Cramps: No Respiratory Chronic Cough: No HX of Shortness of Breath: No Hoarseness: No Hx Chronic Obstructive Pulmonary Disease (COPD): No Hx Asthma: No Hx Emphysema: No Hx Sleep Apnea: No CPAP: No Hx Respiratory Tract Infection/Cold (presently): No Do You Snore Loudly (louder than talking or can be heard): No Do You Often Feel Tired/ Fatigued/ Sleepy Dring Daytime?: Yes Has Anyone Observed You Stop Breathing During Sleep?: No Result (for STOP score): Negative Hx Smoking: Yes (QUIT SMOKING OCT 2015) Smoking Status: Former smoker Gastrointestinal Hx Gastrointestinal Disorders: No Hx Gastrointestinal Bleed: No Hx Ulcer: No Hx Hiatal Hernia: No Difficulty Chewing/Swallowing: No Special diet followed at home: No Hx Unplanned Weight Loss of 20#: No HX Unplanned Weight Gain of 20#: No Neurological Hx Seizures: No HX Syncope/Blackout Spells/Unconsciousness: No Hx Transient Ischemic Attacks (TIA): No Hx Multiple Sclerosis: No Hx Parkinson's Disease: No Hx Head/Neck Injury: Yes (CONCUSSION PER HX,CERVICAL BULGING DISC) Hx Headaches: No Hx Back Injury/Pain: Yes (DEGENERATIVE DISC, BULGE DISC, BACK SURGERY) Recent Onset of Speech Difficulty: No Restless Legs: No Does patient have nerve stimulator: No Blood Disorder Hx Leukemia: No Bleeding Tendencies: No Hx Deep Vein Thrombosis: No Hx High Cholesterol: No Blood Transmitted Disease: No Hx Hepatitis: No Hx Cirrhosis: No Hx Anemia: No Hx Blood Disorders: No Reproduction : No Is Patient Lactating: No Hx Hysterectomy: No Hx Tubal Ligation: No Are You Post Menopause: Yes Genitourinary Hx Renal Disease: No Musculoskeletal Hx Arthritis: Yes Hx Rheumatoid Arthritis: No Hx Gout: No Recent Onset of an Orthopedic Problem: No Endocrine Hx Diabetes: No Thyroid Disease: No Hx Steroid Therapy: Yes (PAIN MANAGEMENT) Psycho/Social Hx Substance Use: No Hx Alcohol Use: No Hx Anxiety: Yes (ON MED) Hx Depression: No Mental Illness: No Hx Dementia: No Miscellaneous Hx Cancer: No Recent Exposure to Contagious Disease: No Hx of C-Diff: No Any Loose Teeth: No Allergies cephalexin (From Keflex) Allergy (Verified 02/20/25 08:23) Rash Discharge Is Pt Admitted From a Prison, or a [facility]ci: No After D/C, Where Do you Plan to Go: Return Home Vital Signs Vital Signs Vital Signs: 02/20/25 08:25 02/20/25 08:26 02/20/25 08:42 Temperature 97.9 F 97.9 F Temperature Source Temporal Pulse Rate 97 97 Respiratory Rate 18 18 Respiratory Pattern Normal Blood Pressure 148/84 H 148/84 H Blood Pressure Mean 105 Blood Pressure Source Monitor Blood Pressure Position Semi-Fowlers Blood Pressure Location Left Arm Pulse Ox 98 98 Oxygen Delivery Method Room Air Weight Weight: 163 lb Body Mass Index (BMI) 24.7 Physical Exam Const alert, oriented x3 and no apparent distress HEENT normocephalic and head/scalp atraumatic Resp normal respiratory effort Cardio regular rate GI soft to palpation and non-tender; Negative for non-distended Palpation: Negative for guarding Extremity no clubbing, cyanosis or edema Skin no rashes or lesions noted Neuro CN's II-XII intact bilaterally Psych mental status grossly normal Assessment & Plan Assessment/Plan (1) S/P right hemicolectomy: Surgery Risks - Colonoscopy Risks Include but are not Limited To: Risks include but are not limited to: Bleeding, perforation requiring further surgery, inability to complete colonoscopy requiring barium enema. 02/20/25 0916 Cosigner Signature (if applicable): CC: Dr. Carrillo Driscoll MD; Dr. Em Hazel MD~ Signed [facility]06[facility] Consult note [facility] Medical Records Department [address] [place] [address] Pre-Anesthesia Evaluation 02/20/25 0842 MR#: [id number] Acct: [id number] Name: FEDE LUIS Rep #:[id number] 2 : 1970 54 From: Thiago Foley MD PCP: Dr. Carrillo Driscoll MD Status:REG S DC Y Race: C Location: [place] [address] ASA Classification* ASA Classification ASA Classification: 2 Assessment & Plan Anesthesia* Anesthesia Assessment Anesthesia Assessment: Discussed sedation and/or anesthesia options, risks, benefits, and alternatives with patient/parents/legal guardian/POA. Questions invited. The patient/parents/legal guardian/POA seems to understand and agrees to proceedwith anesthesia plan. Reviewed the physical assessment, medical history, allergy history and patient home medications list prior to surgery/procedure/anesthetic and documented any changes. Performed airway and anesthesia risk assessments. Anesthesia Type Anesthesia Type: MAC Anesthesia Focused Assessment* Temperature: 97.9 F Pulse Rate: 97 Blood Pressure: 148/84 Respiratory Rate: 18 Pulse Ox: 98 Airway Assessment Mouth opens: >3 cm Mallampati Score: II Labs Anesthesia Preop lab: CBC WBC 6.2 K/mm3 (4.4-11.0) 01/03/25 13:48 01/03/25 RBC 4.26 M/mm3 (4.2-5.4) 01/03/25 13:48 01/03/25 Hgb 13.5 g/dL (12.0-15.0) 01/03/25 13:48 01/03/25 Hct 39.5 % (37-47) 01/03/25 13:48 01/03/25 Plt Count 382 K/mm3 (150-450) 01/03/25 13:48 01/03/25 CHEMISTRY Potassium 4.7 mmol/L (3.3-5.1) 01/03/25 13:48 01/03/25 Sodium 139 mmol/L (133-145) 01/03/25 13:48 01/03/25 Magnesium 2.1 mg/dL (1.6-2.6) 07/12/24 13:55 07/12/24 Phosphorus 3.2 mg/dL (2.5-4.9) 06/28/24 09:00 06/28/24 BUN 26 mg/dL (4-19) H 01/03/25 13:48 01/03/25 Creatinine 0.56 mg/dL (0.70-1.20) L 01/03/25 13:48 Glucose 106 mg/dL (70-99) H 01/03/25 13:48 01/03/25 POC Glucose 89 mg/dL (70-110) 02/12/20 06:10 02/12/20 TSH 1.610 uIU/mL (0.300-4.200) 01/03/25 13:48 12/12 01/04 COAG PT 12.8 SECONDS (11.7-14.9) 07/14/16 17:05 Urine Test Negative Negative 02/08/17 05:40 02/08/17 Pre-Assessment Diagnosis/Proposed Procedure Planned Operative Procedure(s): CSCOPE Anesthesia History Anesthesia History - fitter up: Anesthesia History - fitter up Hx Hospitalization No 02/07/25 11:28 Any Problems With Anesthesia No 02/07/25 11:28 Cholinesterase deficiency No 02/07/25 11:28 You/Your Family Experience No 02/07/25 11:28 fever (hyperthermia) with Relationship Recent Exposure to Contagious No 02/20/25 08:25 Disease Does patient have nerve No 02/07/25 11:28 stimulator Patient instructed to have device shut off --Does patient have Pacemaker or ICD? When Was Last Pacemaker Check QUESTION #4 FULL TEXT: You/Your Family Experience fever (hyperthermia) with Anesthesia Last Oral Intake Last Oral intake: Last Oral Intake NPO since Meds taken in AM with sips of water? Meds patient instructed to take am of surgery PONV PONV - fitter up: PONV - fitter up Female Yes 02/07/25 11:28 HX of Motion Sickness No 02/07/25 11:28 HX of N/V After Surgery No 02/07/25 11:28 Non-Smoker Yes 02/07/25 11:28 Duration of Surgery greater No 02/07/25 11:28 than 60 minutes Number of Risk Factors 2 02/07/25 11:28 PONV Score Moderate Risk 02/07/25 11:28 Height & Weight Height & Weight: Anesthesia: Height & Weight Height 5 ft 8 in 02/20/25 08:26 Weight: 73.936 kg 02/20/25 08:26 Body Mass Index (BMI) 24.7 02/20/25 08:26 Respiratory Assessment Respiratory Assessment - fitter up: Respiratory Tract Infection Hx - fitter up Hx Respiratory Tract Infection No 02/07/25 11:28 STOP Sleep Apnea STOP Sleep Apnea - fitter up: STOP Sleep Apnea - fitter up Hx Hypertension No 02/07/25 11:28 Hx Sleep Apnea No 02/07/25 11:28 CPAP No 02/13/25 12:29 BIPAP Do you snore loudly (louder No 02/07/25 11:28 than talking or can be heard Do you often feel tired/ Yes 02/07/25 11:28 fatigued/ sleepy during daytime? Has anyone observed you stop No 02/07/25 11:28 breathing during sleep? STOP Results Negative 02/07/25 11:28 QUESTION #5 FULL TEXT : Do you snore loudly (louder than talking or can be heard through closeddoors)? 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 Specify any problems Hx of Preganancy in last 3 No 02/07/25 11:28 Months Nurse Filling Out Transfusion DSCHRIBER 02/07/25 11:28 & Questions: Date: 02/07/25 02/07/25 11:28 Time: 11:28 02/07/25 11:28 Patient unable to answer at this time (ie. confused, unrespo /Reproduction History /Reproductive History - fitter up: /Reproductive Hx- fitter up Hx Now No 02/07/25 11:28 Gestational Age (in weeks): EDC: Hx Hx Para Hx Section SAB No 02/07/25 11:28 Active Medications Active Medications: Current Medications Generic Name Dose Route Start Last Admin Trade Name Freq PRN Reason Stop Dose Admin Lactated Ringer's 1,000 mls @ 15 mls/hr 02/20/25 08:15 02/20/25 08:36 IV 15 mls/hr .Q48H DEEPAK Administration PFSH Medical History Anemia Bilateral leg weakness History of breast cancer Breast pain, right Well woman exam Urinary incontinence Dysuria Encounter for chemotherapy management Diarrhea due to drug Hypokalemia 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 Mucositis CINV (chemotherapy-induced nausea and vomiting) Encounter for education Post-menopausal Cancer Arthritis Migraine headache Former smoker History of pain when walking Mass of right breast History of tobacco use Encounter for screening for malignant neoplasm of lung History of kidney stones History of Thoracic Fracture Back pain Anxiety Endometriosis Home Medications ?Medication ?Instructions ?Recorded ?Last Taken ?Type duloxetine 30 mg capsule,delayed 30 mg PO DAILY anx 02/19/25 History release multivitamin with folic acid 400 1 tab PO DAILY Check with primary 07/19/16 02/19/25 History mcg tablet doctor tizanidine 4 mg capsule (Zanaflex) 4 mg PO QHS PRN Rossy ck with primary 01/18/20 02/19/25 History doctor meloxicam 7.5 mg tablet 7.5 mg PO DAILY 10/28/2007/06 History hydrocodone-acetaminophen 5-325mg 1 tab PO BID PRN maureen n 05/10/24 Unknown History 5mg-325mg anastrozole 1 mg tablet 1 mg PO DAILY #90 tabs 08/2002/19/25 Rx calcium carbonate 600 mg PO DAILY Help with emerita ne loss 12/04/24 02/18/25 History buprenorphine 20 mcg/hour weekly 1 patch topical GALEANA 02/17/25 History transdermal patch (Butrans) oxycodone 5 mg tablet 5 mg PO Q12H PRN pain 5 days #10 02/13/25 Unknown Rx tabs Allergy/AdvReac Type Severity Reaction Status Date / Time cephalexin (From Keflex) Allergy Rash Verified 02/20/25 08:23 Family History Mother Diabetes Arthritis Anemia Hypertension Grandfather Diabetes CVA (cerebral vascular accident) Grandmother Arthritis Surgical History History of surgery on right wrist History of vascular access device History of lumpectomy of right breast Hx of thumb surgery H/O colectomy History of appendectomy H/O elbow surgery clavicle surgery History of back surgery H/O shoulder surgery History of left oophorectomy Social History current occupational status: unemployed Smoking Status: Former smoker alcohol intake: never substance use type: does not use caffeine: Yes what type of physical activity do you participate in: walking and other details: Horseback Riding seatbelt use: always do you feel safe at home: Yes additional social history: Review of Systems (Anesthesia) ROS Narrative System reviewed and no additional complaints, except as documented. 02/20/2542 > Date _ Thiago Darden Signature: Date CC: ~ Signed [facility]06-04-2025 History and physical note Author Primo Alfaro [facility] Note Date/Time February 13, 2025 11:23 am [facility] Medical Records Department [address] [place] [address] H&P Exam - Surgical 02/13/25 1121 MR#: [id number] Acct: [id number] Name: FEDE LUIS Rep #:[id number] : 1970 54 From: Primo Alfaro MD PCP: Dr. Carrillo Driscoll MD Status:REG S CA Location: [place] [address] HPI - General HPI Narrative FEDE LUIS, is a 54 F who presents with right side De Quervain's tenosynovitis, refractory to splinting. Current Encounter (DATE OF SURGERY H&P UPDATE): I saw and examined the patient this morning in pre-operative holding. We discussed risks and benefits of today's surgery and they would like to proceed. NO CHANGE in health history since last seen and evaluated. Ready to proceed with surgery. 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 Mucositis CINV (chemotherapy-induced nausea and vomiting) Encounter for education Post-menopausal Cancer Arthritis Migraine headache Former smoker History of pain when walking Mass of right breast History of tobacco use Encounter for screening for malignant neoplasm of lung History of kidney stones History of Thoracic Fracture Back pain Anxiety Endometriosis Home Medications ?Medication ?Instructions ?Recorded ?Last Taken ?Type duloxetine 30 mg capsule,delayed 30 mg PO DAILY anx 02/13/25 07:00 History release multivitamin with folic acid 400 1 tab PO DAILY Check with primary 07/19/16 Unknown History mcg tablet doctor tizanidine 4 mg capsule (Zanaflex) 4 mg PO QHS PRN Rossy ck with primary 01/18/20 Unknown History doctor meloxicam 7.5 mg tablet 7.5 mg PO DAILY 10/28/2010/05 History hydrocodone-acetaminophen 5-325mg 1 tab PO BID PRN maureen n 05/10/24 Unknown History 5mg-325mg anastrozole 1 mg tablet 1 mg PO DAILY #90 tabs 08/2002/13/25 07:00 Rx calcium carbonate 600 mg PO DAILY Help with emerita ne loss 12/04/24 Unknown History buprenorphine 20 mcg/hour weekly 1 patch topical GALEANA 02/10/25 History transdermal patch (Butrans) Allergy/AdvReac Type Severity Reaction Status Date / Time cephalexin (From Keflex) Allergy Rash Verified 02/13/25 10:03 Family History Mother Diabetes Arthritis Anemia Hypertension Grandfather Diabetes CVA (cerebral vascular accident) Grandmother Arthritis Surgical History (Updated 02/07/25 @ 11:30 by Madeline Magdaleno) History of surgery on right wrist History of vascular access device History of lumpectomy of right breast Hx of thumb surgery H/O colectomy History of appendectomy H/O elbow surgery clavicle surgery History of back surgery H/O shoulder surgery History of left oophorectomy Social History current occupational status: unemployed Smoking Status: Former smoker alcohol intake: never substance use type: does not use caffeine: Yes what type of physical activity do you participate in: walking and other details: Horseback Riding seatbelt use: always do you feel safe at home: Yes additional social history: Vital Signs Vital Signs Vital Signs: 02/13/25 10:07 02/13/25 10:07 02/13/25 10:43 Temperature 98.0 F 98.0 F Temperature Source Temporal Pulse Rate 75 75 Respiratory Rate 18 18 Respiratory Pattern Normal Blood Pressure 159/92 H 159/92 H Blood Pressure Mean 114 Blood Pressure Source Monitor Blood Pressure Position Sitting Blood Pressure Location Left Arm Pulse Ox 98 98 Oxygen Delivery Method Room Air Room Air Weight Weight: 165 lb 5.547 oz Body Mass Index (BMI) 25.1 Physical Exam Narrative RIGHT Upper Extremity Inspection: Warm and pink hand, no obvious deformity Palpation: Tenderness to palpation on the radial side of the distal radius alongthe first dorsal compartment. Positive Letty's test. Positive Eickhoff'stest (positive provocative maneuvers for de Quervain's). No pain with axial grind of the thumb. Motor: Able to bend and extend all MP, PIP, and DIP joints. Sensory: Intact to light touch on the radial and ulnar borders. Vascular: Finger tips are warm and well perfused with <2 second capillary refill. Left upper extremity Well-healed incision with great scar over the left first dorsal compartment fromher previous de Quervain's release Assessment & Plan Assessment/Plan (1) De Quervain's tenosynovitis, right: PLAN: Symptoms and physical exam consistent with de Quervain's tenosynovitis. I talked to the patient extensively about the risks of surgery, including bleeding, infection, damage to surrounding structures (we notably discussed damage including transection or neuropraxia of the superficial branch of the radial nerve and the subsequent numbness that could result. We also discussed damage to the volar aspect of the first dorsal compartment and subsequent tendonsubluxation as a possible risk), poor scaring, surgical site dehiscence and wound formation, need for wound care, need for repeat operations, failure to obtain the desired result, persistent pain despite successful operation without any improvement, and the risks of anesthesia. The benefits and alternatives of this surgery were also discussed. We talked about the alternative of continued bracing, NSAIDs , and a steroid injection; however , she is not interested in any further nonoperative management at this time if she would like definitive treatment if possible, and is accepting of the risks of failure to obtain the desired result and possible damage to surrounding structures. All of their questions were answered, and they agreed to proceed with surgery. Plan for first dorsal compartment release right side, Mac/Local Patient happy with the plan. INTERVAL H&P PLAN, DATE OF SURGERY: We will proceed with surgery today. 02/13/25 1123 <Electronically signed by Primo Alfaro MD> Cosigner Signature (if applicable): CC: Dr. Primo Alfaro MD; Dr. Carrillo Driscoll MD~ Signed [facility] Work Phone: 1(651) 260-150806-04-2025 Consult note Author Leon Ortiz [facility] Note Date/Time February 13, 2025 10:43 am [facility] Medical Records Department [address] [place] [address] Pre-Anesthesia Evaluation 02/13/25 1041 MR#: [id number] Acct: [id number] Name: FEDE LUIS Rep #:[id number] : 1970 54 From: Leon Ortiz MD PCP: Dr. Carrillo Driscoll MD Status:REG S DC Y Race: C Location: [place] [address] ASA Classification* ASA Classification ASA Classification: 2 Assessment & Plan Anesthesia* Anesthesia Assessment Anesthesia Assessment: Discussed sedation and/or anesthesia options, risks, benefits, and alternatives with patient/parents/legal guardian/POA. Questions invited. The patient/parents/legal guardian/POA seems to understand and agrees to proceedwith anesthesia plan. Reviewed the physical assessment, medical history, allergy history and patient home medications list prior to surgery/procedure/anesthetic and documented any changes. Performed airway and anesthesia risk assessments. Anesthesia Type Anesthesia Type: MAC History Source History Obtained from:: Patient and Chart Anesthesia Focused Assessment* Temperature: 98.0 F Pulse Rate: 75 Blood Pressure: 159/92 Respiratory Rate: 18 Pulse Ox: 98 Oxygen Delivery Method: Room Air Airway Assessment Mouth opens: >3 cm Mallampati Score: II Teeth Condition: Intact Neck Range of motion (ROM): Full ROM Focused Labs Anesthesia Preop lab: CBC WBC 6.2 K/mm3 (4.4-11.0) 01/03/25 13:48 01/03/25 RBC 4.26 M/mm3 (4.2-5.4) 01/03/25 13:48 01/03/25 Hgb 13.5 g/dL (12.0-15.0) 01/03/25 13:48 01/03/25 Hct 39.5 % (37-47) 01/03/25 13:48 01/03/25 Plt Count 382 K/mm3 (150-450) 01/03/25 13:48 01/03/25 CHEMISTRY Potassium 4.7 mmol/L (3.3-5.1) 01/03/25 13:48 01/03/25 Sodium 139 mmol/L (133-145) 01/03/25 13:48 01/03/25 Magnesium 2.1 mg/dL (1.6-2.6) 07/12/24 13:55 07/12/24 Phosphorus 3.2 mg/dL (2.5-4.9) 06/28/24 09:00 06/28/24 BUN 26 mg/dL (4-19) H 01/03/25 13:48 01/03/25 Creatinine 0.56 mg/dL (0.70-1.20) L 01/03/25 13:48 Glucose 106 mg/dL (70-99) H 01/03/25 13:48 01/03/25 POC Glucose 89 mg/dL (70-110) 02/12/20 06:10 02/12/20 TSH 1.610 uIU/mL (0.300-4.200) 01/03/25 13:48 12/12 01/04 COAG PT 12.8 SECONDS (11.7-14.9) 07/14/16 17:05 Urine Test Negative Negative 02/08/17 05:40 02/08/17 Pre-Assessment Diagnosis/Proposed Procedure Planned Operative Procedure(s): RIGHT WRIST DEQUERVAINS TENSYNOVITIS RIGHT WRISTFIRST DORSAL COMPARTMENT RELEASE Anesthesia History Anesthesia History - fitter up: Anesthesia History - fitter up Hx Hospitalization No 02/07/25 11:28 Any Problems With Anesthesia No 02/07/25 11:28 Cholinesterase deficiency No 02/07/25 11:28 You/Your Family Experience No 02/07/25 11:28 fever (hyperthermia) with Relationship Recent Exposure to Contagious No 02/13/25 10:07 Disease Does patient have nerve No 02/07/25 11:28 stimulator Patient instructed to have device shut off --Does patient have Pacemaker No 02/13/25 10:07 or ICD? When Was Last Pacemaker Check QUESTION #4 FULL TEXT: You/Your Family Experience fever (hyperthermia) with Anesthesia Last Oral Intake Last Oral intake: Last Oral Intake NPO since 07:00 02/13/25 10:07 Meds taken in AM with sips of Yes 02/13/25 10:07 water? Meds patient instructed to see med rec 02/13/25 10:07 take am of surgery PONV PONV - fitter up: PONV - fitter up Female Yes 02/07/25 11:17 HX of Motion Sickness No 02/07/25 11:17 HX of N/V After Surgery No 02/07/25 11:17 Non-Smoker Yes 02/07/25 11:17 Duration of Surgery greater Yes 02/07/25 11:17 than 60 minutes Number of Risk Factors 3 02/07/25 11:17 PONV Score Moderate Risk 02/07/25 11:17 Height & Weight Height & Weight: Anesthesia: Height & Weight Height 5 ft 8 in 02/13/25 10:07 Weight: 75 kg 02/13/25 10:07 Body Mass Index (BMI) 25.1 02/13/25 10:07 Respiratory Assessment Respiratory Assessment - fitter up: Respiratory Tract Infection Hx - fitter up Hx Respiratory Tract Infection No 02/07/25 11:28 STOP Sleep Apnea STOP Sleep Apnea - fitter up: STOP Sleep Apnea - fitter up Hx Hypertension No 02/07/25 11:28 Hx Sleep Apnea No 02/07/25 11:28 CPAP No 01/25/25 09:06 BIPAP Do you snore loudly (louder No 02/07/25 11:17 than talking or can be heard Do you often feel tired/ Yes 02/07/25 11:17 fatigued/ sleepy during daytime? Has anyone observed you stop No 02/07/25 11:17 breathing during sleep? STOP Results Negative 02/07/25 11:17 QUESTION #5 FULL TEXT : Do you snore loudly (louder than talking or can be heard through closed doors)? 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 Specify any problems Hx of Preganancy in last 3 No 02/07/25 11:17 Months Nurse Filling Out Transfusion DSCHRIBER 02/07/25 11:17 & Questions: Date: 02/07/25 02/07/25 11:17 Time: 11:18 02/07/25 11:17 Patient unable to answer at this time (ie. confused, unrespo /Reproduction History /Reproductive History - fitter up: /Reproductive Hx- fitter up Hx Now No 02/07/25 11:17 Gestational Age (in weeks): EDC: Hx Hx Para Hx Section SAB No 02/07/25 11:28 Active Medications Active Medications: Current Medications Generic Name Dose Route Start Last Admin Trade Name Freq PRN Reason Stop Dose Admin Clindamycin Phosphate 900 mg in 50 mls @ 75 mls/hr 02/13/25 11:00 Cleocin IV 02/13/25 11:39 INTRAOP ONE Lactated Ringer's 1,000 mls @ 15 mls/hr 02/13/25 09:45 02/13/25 10:16 IV 15 mls/hr .Q48H DEEPAK Administration PFSH Medical History (Updated 02/07/25 @ 11:23 by Madeline Magdaleno) Anemia Bilateral leg weakness History of breast cancer Breast pain, right Well woman exam Urinary incontinence Dysuria Encounter for chemotherapy management Diarrhea due to drug Hypokalemia 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 Mucositis CINV (chemotherapy-induced nausea and vomiting) Encounter for education Post-menopausal Cancer Arthritis Migraine headache Former smoker History of pain when walking Mass of right breast History of tobacco use Encounter for screening for malignant neoplasm of lung History of kidney stones History of Thoracic Fracture Back pain Anxiety Endometriosis Home Medications ?Medication ?Instructions ?Recorded ?Last Taken ?Type duloxetine 30 mg capsule,delayed 30 mg PO DAILY anx 02/13/25 07:00 History release multivitamin with folic acid 400 1 tab PO DAILY Check with primary 07/19/16 Unknown History mcg tablet doctor tizanidine 4 mg capsule (Zanaflex) 4 mg PO QHS PRN Rossy ck with primary 01/18/20 Unknown History doctor meloxicam 7.5 mg tablet 7.5 mg PO DAILY 10/28/2010/05 History hydrocodone-acetaminophen 5-325mg 1 tab PO BID PRN maureen n 05/10/24 Unknown History 5mg-325mg anastrozole 1 mg tablet 1 mg PO DAILY #90 tabs 08/2002/13/25 07:00 Rx calcium carbonate 600 mg PO DAILY Help with emerita ne loss 12/04/24 Unknown History buprenorphine 20 mcg/hour weekly 1 patch topical GALEANA 02/10/25 History transdermal patch (Butrans) Allergy/AdvReac Type Severity Reaction Status Date / Time cephalexin (From Keflex) Allergy Rash Verified 02/13/25 10:03 Family History Mother Diabetes Arthritis Anemia Hypertension Grandfather Diabetes CVA (cerebral vascular accident) Grandmother Arthritis Surgical History (Updated 02/07/25 @ 11:30 by Madeline Magdaleno) History of surgery on right wrist History of vascular access device History of lumpectomy of right breast Hx of thumb surgery H/O colectomy History of appendectomy H/O elbow surgery clavicle surgery History of back surgery H/O shoulder surgery History of left oophorectomy Social History current occupational status: unemployed Smoking Status: Former smoker alcohol intake: never substance use type: does not use caffeine: Yes what type of physical activity do you participate in: walking and other details: Horseback Riding seatbelt use: always do you feel safe at home: Yes additional social history: Review of Systems (Anesthesia) ROS Narrative System reviewed and no additional complaints, except as documented. 02/13/25 1043 <Electronically signed by Leon Ortiz MD> Date _ Leon Ortiz MD Cosigner Signature: Date CC: ~ Signed [facility] Work Phone: [phone]) 447-786406-04-2025 Consult note [facility] Medical Records Department [address] [place] [address] Anesthesia Postop Eval I 02/13/25 1234 MR#: [id number] Acct: [id number] Name: FEDE LUIS Rep #:[id number] : 1970 54 From: Bernadette Montero OBSTETRICIAN PCP: Dr. Carrillo Driscoll MD Status:REG S DC Y Race: C Location: [place] [address] Anesthesia: Postop Eval I Current Vital Signs Temperature: 99 F Pulse Rate: 89 Blood Pressure: 151/82 Respiratory Rate: 18 Pulse Ox: 100 Oxygen Delivery Method: Room Air Assessment Airway patent: Yes Spontaneous unlabored respirations: Yes Mental status: Awake nausea: No Vomiting: No Anesthesia Complication: No Fluid Hydration Crystalloid volume administer (ml): 800 Total IV fluid infused: 800 Progress Note Anesthesia document: Postop Eval 1 completed: Yes 02/13/25 1235 c OBSTETRICIAN> Date _ Bernadette Montero OBSTETRICIAN Cosigner Signature: Date CC: ~ Signed [facility]06-04-2025 History and physical note [facility] Medical Records Department [address] [place] [address] H&P Exam - Surgical 02/13/25 1121 MR#: [id number] Acct: [id number] Name: FEDE LUIS Rep #:[id number] : 1970 54 From: Primo Alfaro MD PCP: Dr. Carrillo Driscoll MD Status:REG S DC Location: [place] [address] HPI - General HPI Narrative FEDE LUIS, is a 54 F who presents with right side De Quervain's tenosynovitis, refractory to splinting. Current Encounter (DATE OF SURGERY H&P UPDATE): I saw and examined the patient this morning in pre-operative holding. We discussed risks and benefits of today's surgery and they would like to proceed. NO CHANGE in health history since last seen and evaluated. Ready to proceed with surgery. 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 Mucositis CINV (chemotherapy-induced nausea and vomiting) Encounter for education Post-menopausal Cancer Arthritis Migraine headache Former smoker History of pain when walking Mass of right breast History of tobacco use Encounter for screening for malignant neoplasm of lung History of kidney stones History of Thoracic Fracture Back pain Anxiety Endometriosis Home Medications ?Medication ?Instructions ?Recorded ?Last Taken ?Type duloxetine 30 mg capsule,delayed 30 mg PO DAILY anx 02/13/25 07:00 History release multivitamin with folic acid 400 1 tab PO DAILY Check with primary 07/19/16 Unknown History mcg tablet doctor tizanidine 4 mg capsule (Zanaflex) 4 mg PO QHS PRN Rossy ck with primary 01/18/20 Unknown History doctor meloxicam 7.5 mg tablet 7.5 mg PO DAILY 10/28/2010/05 History hydrocodone-acetaminophen 5-325mg 1 tab PO BID PRN maureen n 05/10/24 Unknown History 5mg-325mg anastrozole 1 mg tablet 1 mg PO DAILY #90 tabs 08/2002/13/25 07:00 Rx calcium carbonate 600 mg PO DAILY Help with emerita ne loss 12/04/24 Unknown History buprenorphine 20 mcg/hour weekly 1 patch topical GALEANA 02/10/25 History transdermal patch (Butrans) Allergy/AdvReac Type Severity Reaction Status Date / Time cephalexin (From Keflex) Allergy Rash Verified 02/13/25 10:03 Family History Mother Diabetes Arthritis Anemia Hypertension Grandfather Diabetes CVA (cerebral vascular accident) Grandmother Arthritis Surgical History (Updated 02/07/25 @ 11:30 by Madeline Magdaleno) History of surgery on right wrist History of vascular access device History of lumpectomy of right breast Hx of thumb surgery H/O colectomy History of appendectomy H/O elbow surgery clavicle surgery History of back surgery H/O shoulder surgery History of left oophorectomy Social History current occupational status: unemployed Smoking Status: Former smoker alcohol intake: never substance use type: does not use caffeine: Yes what type of physical activity do you participate in: walking and other details: Horseback Riding seatbelt use: always do you feel safe at home: Yes additional social history: Vital Signs Vital Signs Vital Signs: 02/13/25 10:07 02/13/25 10:07 02/13/25 10:43 Temperature 98.0 F 98.0 F Temperature Source Temporal Pulse Rate 75 75 Respiratory Rate 18 18 Respiratory Pattern Normal Blood Pressure 159/92 H 159/92 H Blood Pressure Mean 114 Blood Pressure Source Monitor Blood Pressure Position Sitting Blood Pressure Location Left Arm Pulse Ox 98 98 Oxygen Delivery Method Room Air Room Air Weight Weight: 165 lb 5.547 oz Body Mass Index (BMI) 25.1 Physical Exam Narrative RIGHT Upper Extremity Inspection: Warm and pink hand, no obvious deformity Palpation: Tenderness to palpation on the radial side of the distal radius alongthe first dorsal compartment. Positive Letty's test. Positive Eickhoff'stest (positive provocative maneuvers for de Quervain's). No pain with axial grind of the thumb. Motor: Able to bend and extend all MP, PIP, and DIP joints. Sensory: Intact to light touch on the radial and ulnar borders. Vascular: Finger tips are warm and well perfused with <2 second capillary refill. Left upper extremity Well-healed incision with great scar over the left first dorsal compartment fromher previous de Quervain's release Assessment & Plan Assessment/Plan (1) De Quervain's tenosynovitis, right: PLAN: Symptoms and physical exam consistent with de Quervain's tenosynovitis. I talked to the patient extensively about the risks of surgery, including bleeding, infection, damage to surrounding structures (we notably discussed damage including transection or neuropraxia of the superficial branch of the radial nerve and the subsequent numbness that could result. We also discussed damage to the volar aspect of the first dorsal compartment and subsequent tendonsubluxation asa possible risk), poor scaring, surgical site dehiscence and wound formation, need for wound care, need for repeat operations, failure to obtain the desired result, persistent pain despite successfuloperation without any improvement, and the risks of anesthesia. The benefits and alternatives of this surgery were also discussed. We talked about the alternative of continued bracing, NSAIDs , and asteroid injection; however , she is not interested in any further nonoperative management at this time if she would like definitive treatment if possible, and is accepting of the risks of failure to obtain the desired result and possible damage to surrounding structures. All of their questions wereanswered, and they agreed to proceed with surgery. Plan for first dorsal compartment release right side, Mac/Local Patient happy with the plan. INTERVAL H&P PLAN, DATE OF SURGERY: We will proceed with surgery today. 02/13/25 1123 Cosigner Signature (if applicable): CC: Dr. Primo Alfaro MD; Dr. Carrillo Driscoll MD~ Signed [facility]06-04-2025 Consult note [facility] Medical Records Department [address] [place] [id number] Pre-Anesthesia Evaluation 02/13/25 1041 MR#: [id number] Acct: [id number] Name: FEDE LUIS Rep #:[id number] : 1970 54 From: Leon Ortiz MD PCP: Dr. Carrillo Driscoll MD Status:REG S DC Y Race: C Location: [place] [address] ASA Classification* ASA Classification ASA Classification: 2 Assessment & Plan Anesthesia* Anesthesia Assessment Anesthesia Assessment: Discussed sedation and/or anesthesia options, risks, benefits, and alternatives with patient/parents/legal guardian/POA. Questions invited. The patient/parents/legal guardian/POA seems to understand and agrees to proceedwith anesthesia plan. Reviewed the physical assessment, medical history, allergy history and patient home medications list prior to surgery/procedure/anesthetic and documented any changes. Performed airway and anesthesia risk assessments. Anesthesia Type Anesthesia Type: MAC History Source History Obtained from:: Patient and Chart Anesthesia Focused Assessment* Temperature: 98.0 F Pulse Rate: 75 Blood Pressure: 159/92 Respiratory Rate: 18 Pulse Ox: 98 Oxygen Delivery Method: Room Air Airway Assessment Mouth opens: >3 cm Mallampati Score: II Teeth Condition: Intact Neck Range of motion (ROM): Full ROM Focused Labs Anesthesia Preop lab: CBC WBC 6.2 K/mm3 (4.4-11.0) 01/03/25 13:48 01/03/25 RBC 4.26 M/mm3 (4.2-5.4) 01/03/25 13:48 01/03/25 Hgb 13.5 g/dL (12.0-15.0) 01/03/25 13:48 01/03/25 Hct 39.5 % (37-47) 01/03/25 13:48 01/03/25 Plt Count 382 K/mm3 (150-450) 01/03/25 13:48 01/03/25 CHEMISTRY Potassium 4.7 mmol/L (3.3-5.1) 01/03/25 13:48 01/03/25 Sodium 139 mmol/L (133-145) 01/03/25 13:48 01/03/25 Magnesium 2.1 mg/dL (1.6-2.6) 07/12/24 13:55 07/12/24 Phosphorus 3.2 mg/dL (2.5-4.9) 06/28/24 09:00 06/28/24 BUN 26 mg/dL (4-19) H 01/03/25 13:48 01/03/25 Creatinine 0.56 mg/dL (0.70-1.20) L 01/03/25 13:48 Glucose 106 mg/dL (70-99) H 01/03/25 13:48 01/03/25 POC Glucose 89 mg/dL (70-110) 02/12/20 06:10 02/12/20 TSH 1.610 uIU/mL (0.300-4.200) 01/03/25 13:48 12/12 01/04 COAG PT 12.8 SECONDS (11.7-14.9) 07/14/16 17:05 Urine Test Negative Negative 02/08/17 05:40 02/08/17 Pre-Assessment Diagnosis/Proposed Procedure Planned Operative Procedure(s): RIGHT WRIST DEQUERVAINS TENSYNOVITIS RIGHT WRISTFIRST DORSAL COMPARTMENT RELEASE Anesthesia History Anesthesia History - fitter up: Anesthesia History - fitter up Hx Hospitalization No 02/07/25 11:28 Any Problems With Anesthesia No 02/07/25 11:28 Cholinesterase deficiency No 02/07/25 11:28 You/Your Family Experience No 02/07/25 11:28 fever (hyperthermia) with Relationship Recent Exposure to Contagious No 02/13/25 10:07 Disease Does patient have nerve No 02/07/25 11:28 stimulator Patient instructed to have device shut off --Does patient have Pacemaker No 02/13/25 10:07 or ICD? When Was Last Pacemaker Check QUESTION #4 FULL TEXT: You/Your Family Experience fever (hyperthermia) with Anesthesia Last Oral Intake Last Oral intake: Last Oral Intake NPO since 07:00 02/13/25 10:07 Meds taken in AM with sips of Yes 02/13/25 10:07 water? Meds patient instructed to see med rec 02/13/25 10:07 take am of surgery PONV PONV - fitter up: PONV - fitter up Female Yes 02/07/25 11:17 HX of Motion Sickness No 02/07/25 11:17 HX of N/V After Surgery No 02/07/25 11:17 Non-Smoker Yes 02/07/25 11:17 Duration of Surgery greater Yes 02/07/25 11:17 than 60 minutes Number of Risk Factors 3 02/07/25 11:17 PONV Score Moderate Risk 02/07/25 11:17 Height & Weight Height & Weight: Anesthesia: Height & Weight Height 5 ft 8 in 02/13/25 10:07 Weight: 75 kg 02/13/25 10:07 Body Mass Index (BMI) 25.1 02/13/25 10:07 Respiratory Assessment Respiratory Assessment - fitter up: Respiratory Tract Infection Hx - fitter up Hx Respiratory Tract Infection No 02/07/25 11:28 STOP Sleep Apnea STOP Sleep Apnea - fitter up: STOP Sleep Apnea - fitter up Hx Hypertension No 02/07/25 11:28 Hx Sleep Apnea No 02/07/25 11:28 CPAP No 01/25/25 09:06 BIPAP Do you snore loudly (louder No 02/07/25 11:17 than talking or can be heard Do you often feel tired/ Yes 02/07/25 11:17 fatigued/ sleepy during daytime? Has anyone observed you stop No 02/07/25 11:17 breathing during sleep? STOP Results Negative 02/07/25 11:17 QUESTION #5 FULL TEXT : Do you snore loudly (louder than talking or can be heard through closeddoors)? 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 Specify any problems Hx of Preganancy in last 3 No 02/07/25 11:17 Months Nurse Filling Out Transfusion DSCHRIBER 02/07/25 11:17 & Questions: Date: 02/07/25 02/07/25 11:17 Time: 11:18 02/07/25 11:17 Patient unable to answer at this time (ie. confused, unrespo /Reproduction History /Reproductive History - fitter up: /Reproductive Hx- fitter up Hx Now No 02/07/25 11:17 Gestational Age (in weeks): EDC: Hx Hx Para Hx Section SAB No 02/07/25 11:28 Active Medications Active Medications: Current Medications Generic Name Dose Route Start Last Admin Trade Name Freq PRN Reason Stop Dose Admin Clindamycin Phosphate 900 mg in 50 mls @ 75 mls/hr 02/13/25 11:00 Cleocin IV 02/13/25 11:39 INTRAOP ONE Lactated Ringer's 1,000 mls @ 15 mls/hr 02/13/25 09:45 02/13/25 10:16 IV 15 mls/hr .Q48H DEEPAK Administration PFSH Medical History (Updated 02/07/25 @ 11:23 by Madeline Magdaleno) Anemia Bilateral leg weakness History of breast cancer Breast pain, right Well woman exam Urinary incontinence Dysuria Encounter for chemotherapy management Diarrhea due to drug Hypokalemia 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 Mucositis CINV (chemotherapy-induced nausea and vomiting) Encounter for education Post-menopausal Cancer Arthritis Migraine headache Former smoker History of pain when walking Mass of right breast History of tobacco use Encounter for screening for malignant neoplasm of lung History of kidney stones History of Thoracic Fracture Back pain Anxiety Endometriosis Home Medications ?Medication ?Instructions ?Recorded ?Last Taken ?Type duloxetine 30 mg capsule,delayed 30 mg PO DAILY anx 02/13/25 07:00 History release multivitamin with folic acid 400 1 tab PO DAILY Check with primary 07/19/16 Unknown History mcg tablet doctor tizanidine 4 mg capsule (Zanaflex) 4 mg PO QHS PRN Rossy ck with primary 01/18/20 Unknown History doctor meloxicam 7.5 mg tablet 7.5 mg PO DAILY 10/28/2010/05 History hydrocodone-acetaminophen 5-325mg 1 tab PO BID PRN maureen n 05/10/24 Unknown History 5mg-325mg anastrozole 1 mg tablet 1 mg PO DAILY #90 tabs 08/2002/13/25 07:00 Rx calcium carbonate 600 mg PO DAILY Help with emerita ne loss 12/04/24 Unknown History buprenorphine 20 mcg/hour weekly 1 patch topical GALEANA 02/10/25 History transdermal patch (Butrans) Allergy/AdvReac Type Severity Reaction Status Date / Time cephalexin (From Keflex) Allergy Rash Verified 02/13/25 10:03 Family History Mother Diabetes Arthritis Anemia Hypertension Grandfather Diabetes CVA (cerebral vascular accident) Grandmother Arthritis Surgical History (Updated 02/07/25 @ 11:30 by Madeline Magdaleno) History of surgery on right wrist History of vascular access device History of lumpectomy of right breast Hx of thumb surgery H/O colectomy History of appendectomy H/O elbow surgery clavicle surgery History of back surgery H/O shoulder surgery History of left oophorectomy Social History current occupational status: unemployed Smoking Status: Former smoker alcohol intake: never substance use type: does not use caffeine: Yes what type of physical activity do you participate in: walking and other details: Horseback Riding seatbelt use: always do you feel safe at home: Yes additional social history: Review of Systems (Anesthesia) ROS Narrative System reviewed and no additional complaints, except as documented. 02/13/25 1043 MD> Date _ Leon Ortiz MD [facility] Signature: Date CC: ~ Signed [facility]05-27-2025 Progress [facility] Plastic & Reconstructive Surgery [address], [address] [place] [address] OFFICE VISIT Date of Service: 02/05/25 MR#: [id number] Acct: [id number] Name: FEDE LUIS Rep #: [id number] : 1970 Provider: Dr. Mustapha Alfaro MD Age/Sex: 54/F Location: [place] [address] Status: Signed Intake Vital Signs 01/25/25 09:06 Height 5 ft 8 in Intake Visit Reasons: RIGHT HAND Chief Complaint: right wrist/ hand Is patient in pain?: Yes Allergies cephalexin (From Keflex) Allergy (Verified 02/05/25 14:21) Rash Medications ?Medication ?Instructions ?Recorded ?Confirmed ?Type duloxetine 30 mg capsule,delayed 30 mg PO DAILY anx 02/05/25 History release multivitamin with folic acid 400 1 tab PO DAILY Check with primary 07/19/16 02/05/25 History mcg tablet doctor tizanidine 4 mg capsule (Zanaflex) 4 mg PO QHS PRN Rossy ck with primary 01/18/20 02/05/25 History doctor meloxicam 7.5 mg tablet 7.5 mg PO DAILY 10/28/20 History buprenorphine 10 mcg/hour weekly 1 patch topical Q7D 0 12/25/20 02/05/25 History transdermal patch hydrocodone-acetaminophen 5-325mg 1 tab PO BID PRN 02/05/25 History 5mg-325mg anastrozole 1 mg tablet 1 mg PO DAILY #90 tabs 08/2002/05/25 Rx calcium carbonate mg PO Help with bone loss 02/05/25 History sodium sul 1.479 gram-potas ch 12 tab PO PER PKG DIR # 24 tabs 01/02/25 02/05/25 Rx 0.188 gram-magnes sul 0.225 gram tablet (Sutab) PFSH Medical History Mass of right breast Bilateral leg weakness History of breast cancer Breast pain, right Well woman exam Urinary incontinence Dysuria Encounter for chemotherapy management Diarrhea due to drug Hypokalemia 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 Mucositis CINV (chemotherapy-induced nausea and vomiting) Encounter for education Post-menopausal Cancer History of steroid therapy Arthritis Migraine headache Former smoker History of pain when walking History of tobacco use Encounter for screening for malignant neoplasm of lung History of kidney stones History of Thoracic Fracture Back pain Anxiety Endometriosis Surgical History History of lumpectomy of right breast Hx of thumb surgery H/O colectomy History of appendectomy H/O elbow surgery clavicle surgery History of back surgery H/O shoulder surgery History of left oophorectomy Family History Mother Diabetes Arthritis Anemia Hypertension Grandfather Diabetes CVA (cerebral vascular accident) Grandmother Arthritis Social History current occupational status: unemployed Smoking Status: Former smoker alcohol intake: never substance use type: does not use caffeine: Yes what type of physical activity do you participate in: walking and other details: Horseback Riding seatbelt use: always do you feel safe at home: Yes additional social history: Female Reproductive History Menstrual Date of menopause: 02/11/16 Ab spontaneous: 1 HPI RIGHT HAND Details: Fede Luis is a delightful 54-year-old female with past medical history of chronic back pain (status post surgery and on pain medication), right sided breast cancer treated with lumpectomy and radiation (2023), as well as left- sided de Quervain's tenosynovitis status post first dorsal compartment release in 2023 who presents today for right sided wrist pain out of concern for de Quervain's tenosynovitis. Patient reports worsening sharp right radial sided wrist pain over the distal radius in the area ofthe first dorsal compartment that has been present for approximately 10 weeks and has been worsening. She initially chalked it up to taking anastrozole, as they reported that could cause muscle and joint pain, butnow she thinks it is de Quervain's as it is exactly the same pain as she was having inthe left side that was improved with the first dorsal compartment release. She is right-hand dominant. She has tried bracing as she presented [facility] (our nurse practitioner[facility] clinic on 25 Jan 2025 and was diagnosed with de Quervain's. The bracing did not help much. Patient is not a smoker. 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 She does not have any personal or family history of any bleeding or clotting problems Exam Details RIGHT Upper Extremity Inspection: Warm and pink hand, no obvious deformity Palpation: Tenderness to palpation on the radial side of the distal radius alongthe first dorsal compartment. Positive Letty's test. Positive Eickhoff'stest (positive provocative maneuvers for de Quervain's). No pain with axial grind of the thumb. Motor: Able to bend and extend all MP, PIP, and DIP joints. Sensory: Intact to light touch on the radial and ulnar borders. Vascular: Finger tips are warm and well perfused with <2 second capillary refill. Left upper extremity Well-healed incision with great scar over the left first dorsal compartment fromher previous de Quervain's release Supplemental Info PROCEDURE: WRIST MIN 3 VIEWS 01/25/2025 REASON FOR EXAM: PAIN IN WRIST, BASE OF THUMB, NKI TECHNIQUE: 4 view(s) of the right wrist COMPARISON: None FINDINGS: Bones: No visible fracture. No suspicious bone lesion. Joints: Normal alignment. Soft tissues: Soft tissues are unremarkable. Other: RAD/Wrist min 3 Views IMPRESSION: NEGATIVE WRIST Reading Location: [id number] Coding Level of Care Code Off vis,new,level 3 Diagnoses De Quervain's tenosynovitis, right M65.4 Assessment and Plan (No Qualifiers) Assessment and Plan (1) De Quervain's tenosynovitis, right: Status: Acute Plan: Symptoms and physical exam consistent with de Quervain's tenosynovitis. I talked to the patient extensively about the risks of surgery, including bleeding, infection, damage to surrounding structures (we notably discussed damage including transection or neuropraxia of the superficial branch of the radial nerve and the subsequent numbness that could result. We also discussed damage to the volar aspect of the first dorsal compartment and subsequent tendonsubluxation asa possible risk), poor scaring, surgical site dehiscence and wound formation, need for wound care, need for repeat operations, failure to obtain the desired result, persistent pain despite successfuloperation without any improvement, and the risks of anesthesia. The benefits and alternatives of thissurgery were also discussed. We talked about the alternative of continued bracing, NSAIDs , and a steroid injection; however , she is not interested in any further nonoperative management at this time if she would like definitive treatment if possible, and is accepting of the risks of failure to obtain the desired result and possible damage to surrounding structures. All of their questions were answered, and they agreed to proceed with surgery. Plan for first dorsal compartment release right side under Cassie block and sedation. Patient happy with the plan. CPT codes for insurance prior authorization are as follows: [id number] 02/05/25 1500 MD> Date _ Primo Alfaro MD Cosigner Signature: Date (if applicable) CC: ~ [facility]05-27-2025 Progress note Author Primo Alfaro [facility] Note Date/Time February 05, 2025 3:00p m [facility] [place] [facility] [address], [address] [place] [address] OFFICE VISIT Date of Service: 02/05/25 MR#: [id number] Acct: [id number] Name: FEDE LUIS Rep #: [id number] : 1970 Provider: Dr. Mustapha Alfaro MD Age/Sex: 54/F Location: [place] [address] Status: Signed Intake Vital Signs 01/25/25 09:06 Height 5 ft 8 in Intake Visit Reasons: RIGHT HAND Chief Complaint: right wrist/ hand Is patient in pain?: Yes Allergies cephalexin (From Keflex) Allergy (Verified 02/05/25 14:21) Rash Medications ?Medication ?Instructions ?Recorded ?Confirmed ?Type duloxetine 30 mg capsule,delayed 30 mg PO DAILY anx 02/05/25 History release multivitamin with folic acid 400 1 tab PO DAILY Check with primary 07/19/16 02/05/25 History mcg tablet doctor tizanidine 4 mg capsule (Zanaflex) 4 mg PO QHS PRN Rossy ck with primary 01/18/20 02/05/25 History doctor meloxicam 7.5 mg tablet 7.5 mg PO DAILY 10/28/20 History buprenorphine 10 mcg/hour weekly 1 patch topical Q7D 0 12/25/20 02/05/25 History transdermal patch hydrocodone-acetaminophen 5-325mg 1 tab PO BID PRN 02/05/25 History 5mg-325mg anastrozole 1 mg tablet 1 mg PO DAILY #90 tabs 08/2002/05/25 Rx calcium carbonate mg PO Help with bone loss 02/05/25 History sodium sul 1.479 gram-potas ch 12 tab PO PER PKG DIR # 24 tabs 01/02/25 02/05/25 Rx 0.188 gram-magnes sul 0.225 gram tablet (Sutab) PFSH Medical History Mass of right breast Bilateral leg weakness History of breast cancer Breast pain, right Well woman exam Urinary incontinence Dysuria Encounter for chemotherapy management Diarrhea due to drug Hypokalemia 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 Mucositis CINV (chemotherapy-induced nausea and vomiting) Encounter for education Post-menopausal Cancer History of steroid therapy Arthritis Migraine headache Former smoker History of pain when walking History of tobacco use Encounter for screening for malignant neoplasm of lung History of kidney stones History of Thoracic Fracture Back pain Anxiety Endometriosis Surgical History History of lumpectomy of right breast Hx of thumb surgery H/O colectomy History of appendectomy H/O elbow surgery clavicle surgery History of back surgery H/O shoulder surgery History of left oophorectomy Family History Mother Diabetes Arthritis Anemia Hypertension Grandfather Diabetes CVA (cerebral vascular accident) Grandmother Arthritis Social History current occupational status: unemployed Smoking Status: Former smoker alcohol intake: never substance use type: does not use caffeine: Yes what type of physical activity do you participate in: walking and other details: Horseback Riding seatbelt use: always do you feel safe at home: Yes additional social history: Female Reproductive History Menstrual Date of menopause: 02/11/16 Ab spontaneous: 1 HPI RIGHT HAND Details: Fede Luis is a delightful 54-year-old female with past medical history of chronic back pain (status post surgery and on pain medication), right sided breast cancer treated with lumpectomy and radiation (2023), as well as left-sided de Quervain's tenosynovitis status post first dorsal compartment release in 2023 who presents today for right sided wrist pain out of concern for de Quervain's tenosynovitis. Patient reports worsening sharp right radial sided wrist pain over the distal radius in the area of the first dorsal compartment that has been present for approximately 10 weeks and has been worsening. She initially chalked it up to taking anastrozole, as they reported that could cause muscle and joint pain, butnow she thinks it is de Quervain's as it is exactly the same pain as she was having in the left side that was improved with the first dorsal compartment release. She is right-hand dominant. She has tried bracing as she presented [facility] (our nurse practitioner[facility] clinic on 25 Jan 2025 and was diagnosed with de Quervain's. The bracing did not help much. Patient is not a smoker. 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 She does not have any personal or family history of any bleeding or clotting problems Exam Details RIGHT Upper Extremity Inspection: Warm and pink hand, no obvious deformity Palpation: Tenderness to palpation on the radial side of the distal radius alongthe first dorsal compartment. Positive Letty's test. Positive Eickhoff'stest (positive provocative maneuvers for de Quervain's). No pain with axial grind of the thumb. Motor: Able to bend and extend all MP, PIP, and DIP joints. Sensory: Intact to light touch on the radial and ulnar borders. Vascular: Finger tips are warm and well perfused with <2 second capillary refill. Left upper extremity Well-healed incision with great scar over the left first dorsal compartment fromher previous de Quervain's release Supplemental Info PROCEDURE: WRIST MIN 3 VIEWS 01/25/2025 REASON FOR EXAM: PAIN IN WRIST, BASE OF THUMB, NKI TECHNIQUE: 4 view(s) of the right wrist COMPARISON: None FINDINGS: Bones: No visible fracture. No suspicious bone lesion. Joints: Normal alignment. Soft tissues: Soft tissues are unremarkable. Other: RAD/Wrist min 3 Views IMPRESSION: NEGATIVE WRIST Reading Location: [id number] Coding Level of Care Code Off vis,new,level 3 Diagnoses De Quervain's tenosynovitis, right M65.4 Assessment and Plan (No Qualifiers) Assessment and Plan (1) De Quervain's tenosynovitis, right: Status: Acute Plan: Symptoms and physical exam consistent with de Quervain's tenosynovitis. I talked to the patient extensively about the risks of surgery, including bleeding, infection, damage to surrounding structures (we notably discussed damage including transection or neuropraxia of the superficial branch of the radial nerve and the subsequent numbness that could result. We also discussed damage to the volar aspect of the first dorsal compartment and subsequent tendonsubluxation as a possible risk), poor scaring, surgical site dehiscence and wound formation, need for wound care, need for repeat operations, failure to obtain the desired result, persistent pain despite successful operation without any improvement, and the risks of anesthesia. The benefits and alternatives of thissurgery were also discussed. We talked about the alternative of continued bracing, NSAIDs , and a steroid injection; however , she is not interested in any further nonoperative management at this time if she would like definitive treatment if possible, and is accepting of the risks of failure to obtain the desired result and possible damage to surrounding structures. All of their questions were answered, and they agreed to proceed with surgery. Plan for first dorsal compartment release right side under [place] block and sedation. Patient happy with the plan. CPT codes for insurance prior authorization are as follows: [id number] 02/05/25 1500 <Electronically signed by Primo Alfaro MD> Date _ Primo Alfaro MD Cosigner Signature: Date (if applicable) CC: ~ [place] [facility] Work Phone: 1(812) 296-922905-16-2025 Evaluation note* Diagnosis Onset Date Resolution Status Admit Date De Quervain's tenosynovitis acute January 25, 2025 8:21am De Quervain's tenosynovitis, right acute January 25, 2025 8 :21am De Quervain's tenosynovitis, right acute February 05, 2025 2 :10pm De Quervain's tenosynovitis, right acute February 13, 2025 9 :30am De Quervain's tenosynovitis, right acute February 15, 2025 8 :08am S/P right hemicolectomy acute J 2024 8:03am [facility] arthritis, thumb, degenerative acute February 22, 2025 8:58am De Quervain's tenosynovitis, right acute February 22, 2025 8:58am Breast cancer, right breast acute February 27, 2025 1:04pm [facility] Work Phone: 1([phone]) 904-235705-09-2025 Radiology Diagnostic study note [facility] Imaging Services [address] [place] [address] Cerv Spine 2 or 3 Views MR#: [id number] Acct: [id number] Name: FEDE LUIS Rep #: [id number] : 1970 F 54 From: Lambert Hooker MD PCP: Dr. Carrillo Driscoll MD Status: REG C Study:Cerv Spine 2 or 3 Views Date of Exam: 01/17/25 Exam# [id number] Ordering Dr: Namrata Moreno MD PROCEDURE: CERV SPINE 2 OR 3 VIEWS 01/17/2025 REASON FOR EXAM: RADICULOPATHY, CERVICAL REGION TECHNIQUE: 3 views of the cervical spine. COMPARISON: None available FINDINGS: Cervical spine is visualized on the lateral view from the skull base to the bottom of C7 with C7 partially obscured by overlying shoulders and C7-T1 not well seen. No fracture or malalignment. No prevertebral soft tissue swelling. The visualized disc spaces appear within limits. Visualized apices appear clear. Appearance of bilateral mild carotid calcific plaque formation. The odontoid is overlapped with the skull base and not well seen on the open- mouth view. Appearanceof mild asymmetric left facet degenerative changes at C4-5 on the AP view. RAD/Cerv Spine 2 or 3 Views IMPRESSION: Appearance of mild asymmetric left facet degenerative changes at C4-5 on the AP view. Reading Location: [id number] CC: Dr. Jorge Alberto Moreno MD; Dr. Carrillo Driscoll MD ~ [place] In: Signed [facility]04-15-2025 Discharge summary Author Flavio Negrete [facility] Note Date/Time December 25, 2024 7:0 0pm [facility] Physical Therapy [facility] [address] [place] [address] / REHABILITATION SERVICES DISCHARGE SUMMARY MR#: [id number] Acct: [id number] Name: FEDE LUIS Rep #: [id number] : 1970 54 From: Cert. MAYCOL Chapin, OCS Referring DrValentino: NOLAN Oden Status: REG RCR Insurance: [facility] [employer] PAY INSURANCE Discharge Summary D/C summary: It has been my pleasure to treat FEDE LUIS referred by NOLAN Lizama, with the diagnosis of OTHER SYMPTOMS AND SIGNS INVOLVING THE MUSCULOSKELETAL SYSTEM for a total of 8 visit(s). Discharge Date: 12/25/24 Please see the following information for a summary of their discharge status. Subjective Subjective: Patient doesnt PT Pain Bilateral Back: Pain Intensity (Out of 10): 7 Overall Improvement % Improvement: 20 Objective Objective/Function: Objective: POSTURE: mild forward posture GAIT: reciprocal pattern PALPATION: unremarkable FLEXABILITY: hamstrings mod tight MMT: ( peak force) quads right 17.1,left 16.9 ,hip flexion 19.9 ,left 17.6 ,hamstrings right 16.9 ,left 17.9 LUMBAR ROM: flexion mod loss ,extension severe loss pain ,side glides mod loss Goals Goal 1:: Patient to be I with HEP for back Goal Progress: Progressing Goal 2:: Patient to improve strength peak force quads/hams/hip by 5-10 # to improve function Goal Progress: Goal Met Goal 3:: Patient to improve lumbar ROM for function of recovery for ADLS Goal 4:: Patient to improve back oswestry score by 5 points to improve QOL Goal Progress: Progressing Goal 5:: Patient to improve CATSIB by 5-10 points to improve balance Goal Progress: Progressing Goal 6:: Patient to improve ability to walking and stand > 15 mins for ADLS Goal Progress: Progressing Plan Plan: D/C D/C Information Discharge Comments: HEP d/c sentence: If there are questions or concerns regarding this patient's physical therapy, please feel free to call me at [phone]. Thank you for the referral of thispatient. Sincerely, Flavio Negrete PT, Cert T, OCS Balance/Gait/Functional tests Balance/Special Test Scores CATSIB Score (Max score 120 seconds): 65 Lower Extremity Functional Score: 42 Improvement % Improvement: 20 <Electronically signed by Cert. MAYCOL Berry PT, OCS> 01/01/25 1055 CC: NOLAN Oden; Dr. Carrillo Driscoll MD ~ JLA Signed [facility] Work Phone: 1(704) 678-267904-15-2025 Discharge summary [facility] Physical Therapy [facility] [address] [place] [address] [address] [place] [address] / REHABILITATION SERVICES DISCHARGE SUMMARY MR#: [id number] Acct: [id number] Name: FEDE LUIS Rep #: [id number] : 1970 54 From: Cert. MAYCOL Chapin, OCS Referring DrValentino: NOLAN Oden Status: REG RCR Insurance: [facility] [employer]Y INSURANCE Discharge Summary D/C summary: It has been my pleasure to treat FEDE LUIS referred by NOLAN Lizama, with the diagnosis of OTHER SYMPTOMS AND SIGNS INVOLVING THE MUSCULOSKELETAL SYSTEM for a total of 8 visit(s). Discharge Date: 12/25/24 Please see the following information for a summary of their discharge status. Subjective Subjective: Patient doesnt PT Pain Bilateral Back: Pain Intensity (Out of 10): 7 Overall Improvement % Improvement: 20 Objective Objective/Function: Objective: POSTURE: mild forward posture GAIT: reciprocal pattern PALPATION: unremarkable FLEXABILITY: hamstrings mod tight MMT: ( peak force) quads right 17.1,left 16.9 ,hip flexion 19.9 ,left 17.6 ,hamstrings right 16.9 ,left 17.9 LUMBAR ROM: flexion mod loss ,extension severe loss pain ,side glides mod loss Goals Goal 1:: Patient to be I with HEP for back Goal Progress: Progressing Goal 2:: Patient to improve strength peak force quads/hams/hip by 5-10 # to improve function Goal Progress: Goal Met Goal 3:: Patient to improve lumbar ROM for function of recovery for ADLS Goal 4:: Patient to improve back oswestry score by 5 points to improve QOL Goal Progress: Progressing Goal 5:: Patient to improve CATSIB by 5-10 points to improve balance Goal Progress: Progressing Goal 6:: Patient to improve ability to walking and stand > 15 mins for ADLS Goal Progress: Progressing Plan Plan: D/C D/C Information Discharge Comments: HEP d/c sentence: If there are questions or concerns regarding this patient's physical therapy, please feel free to call me at [phone]. Thank you for the referral of thispatient. Sincerely, Flavio Negrete, PT, Cert MDT, OCS Balance/Gait/Functional tests Balance/Special Test Scores CATSIB Score (Max score 120 seconds): 65 Lower Extremity Functional Score: 42 Improvement % Improvement: 20 01/01/25 1055 CC: NOLAN Oden; Dr. Carrillo Driscoll MD ~ JLA Signed [facility]03-28-2025 Radiology Diagnostic study note [facility] Imaging Services [address] [place] [address] Breast Limited Unilateral MR#: [id number] Acct: [id number] Name: FEDE LUSI Rep #: [id number] : 1970 F 54 From: Niecy Moody MD PCP: Dr. Carrillo Driscoll MD Status: REG Ramiro DELEON Study:Breast Limited Unilateral Date of Exam: 12/06/24 Exam# [id number] Ordering Dr: Em Hazel MD PROCEDURE: BREAST LIMITED UNILATERAL 12/06/2024 REASON FOR EXAM: RIGHT BREAST BIOPSY TECHNIQUE: Targeted right breast ultrasound. COMPARISON: Mammogram and ultrasound 11/23/2024, MRI 02/09/2024, mammogram and ultrasound 01/20/2024, [id number]/2024. FINDINGS: The patient presented for ultrasound-guided biopsy of the right breast. However, at the time of theprocedure no suspicious sonographic findings were visualized in the upper-outer right breast. There areimages obtained of the 10 o'clock 5 cm from the nipple demonstrating postsurgical changes with associated surgical clips. Also,images obtained of the 9 o'clock 5 cm from the nipple demonstrates normal fibroglandular tissues. US/Breast Limited Unilateral IMPRESSION: Postsurgical changes seen in the upper-outer right breast are benign. Otherwise, there are no suspicious sonographic findings. The patient should return to annual screening mammogram in February 2025. BI-RADS 2: BENIGN. RECOMMEND ANNUAL MAMMOGRAPHIC SCREENING. Follow-up code: 3 Month Follow-up Reading Location: [facility] CC: Dr. Carrillo Driscoll MD; Dr. Em Hazel MD ~ [place] In: Signed [facility]03-14-2025 Radiology Diagnostic study note [facility] Imaging Services [address] [place] [address] Breast Limited Unilateral MR#: [id number] Acct: [id number] Name: FEDE LUIS Rep #: [id number] : 1970 F 54 From: Indio Álvarez MD PCP: Dr. Carrillo Driscoll MD Status: MAKSIM DELEON Study:Breast Limited Unilateral Date of Exam: 11/23/24 Exam# [id number] Ordering Dr: Renetta Guillory NP [employer]-[facility] PROCEDURE: BREAST LIMITED UNILATERAL REASON FOR EXAM: UPPER OUTER AND UPPER INNER QUADS; PAIN COMPARISON: Comparison is made with prior mammogram done earlier in the day. TECHNIQUE: Targeted ultrasound of the right breast. FINDINGS: RIGHT: Ultrasound targeted to the upper-outer quadrant of the right breast. The palpable abnormality corresponds with the site of prior lumpectomy. There is evidence of a 5 mmx 9 mm irregular hypoechoic density at the 10 o'clock position of the breast at 7 cm from the nipple. This corresponds to the lumpectomy site that most likely represents postoperative scarring. A repeat sonogram in 4 months is recommended. US/Breast Limited Unilateral IMPRESSION: The palpable lump corresponds to the prior lumpectomy site. Sonographic findings most likely are due to the postoperative scarring. Four-month follow-up recommended. BI-RADS 3: PROBABLY BENIGN. Reading Location: [facility] CC: NOLAN Oden; Dr. Carrillo Driscoll MD ~ [place] In: Signed [facility]03-10-2025 Evaluation note* Diagnosis Onset Date Resolution Status Admit Date Breast cancer, right breast acute November 19, 2024 1:31pm Breast pain, right acute November 19, 2024 1:31pm Breast cancer, right breast acute November 27, 2024 12:49pm Breast pain, right acute November 27, 2024 12:49pm History of breast cancer acute November 30, 2024 1:04pm Mass of right breast acute [facility] 2024 1:04pm Encounter for screening for malignant neoplasm of lung acute December 04, 2024 1:51pm History of tobacco use acute [facility] 2024 1:51pm [facility] Work Phone: 1([phone]) 613-183503-10-2025 Evaluation note* Diagnosis Onset Date Resolution Status Admit Date Breast cancer, right breast acute November 19, 2024 1:31pm Breast pain, right acute November 19, 2024 1:31pm Breast cancer, right breast acute November 27, 2024 12:49pm Breast pain, right acute November 27, 2024 12:49pm History of breast cancer acute November 30, 2024 1:04pm Mass of right breast acute [facility] 2024 1:04pm Encounter for screening for malignant neoplasm of lung acute December 04, 2024 1:51pm History of tobacco use acute [facility] 2024 1:51pm De Quervain's tenosynovitis acute January 25, 2025 8:21am De Quervain's tenosynovitis, right acute January 25, 2025 8 :21am De Quervain's tenosynovitis, right acute February 05, 2025 2 :10pm [facility] Work Phone: [phone] Evaluation note* Diagnosis Onset Date Resolution Status Admit Date Breast cancer, right breast acute November 19, 2024 1:31pm Breast pain, right acute November 19, 2024 1:31pm Breast cancer, right breast acute November 27, 2024 12:49pm Breast pain, right acute November 27, 2024 12:49pm History of breast cancer acute November 30, 2024 1:04pm Mass of right breast acute [facility] 2024 1:04pm Encounter for screening for malignant neoplasm of lung acute December 04, 2024 1:51pm History of tobacco use acute [facility] 2024 1:51pm De Quervain's tenosynovitis acute January 25, 2025 8:21am De Quervain's tenosynovitis, right acute January 25, 2025 8 :21am De Quervain's tenosynovitis, right acute February 05, 2025 2 :10pm De Quervain's tenosynovitis, right acute February 13, 2025 9 :30am [facility] Work Phone: 1(888) 580-921203-10-2025 Evaluation note* Diagnosis Onset Date Resolution Status Admit Date Breast cancer, right breast acute November 19, 2024 1:31pm Breast pain, right acute November 19, 2024 1:31pm Breast cancer, right breast acute November 27, 2024 12:49pm Breast pain, right acute November 27, 2024 12:49pm History of breast cancer acute November 30, 2024 1:04pm Mass of right breast acute [facility] 2024 1:04pm Encounter for screening for malignant neoplasm of lung acute December 04, 2024 1:51pm History of tobacco use acute [facility] 2024 1:51pm De Quervain's tenosynovitis acute January 25, 2025 8:21am De Quervain's tenosynovitis, right acute January 25, 2025 8 :21am De Quervain's tenosynovitis, right acute February 05, 2025 2 :10pm De Quervain's tenosynovitis, right acute February 13, 2025 9 :30am De Quervain's tenosynovitis, right acute February 15, 2025 8 :08am [facility] Work Phone: 1(292) 525-423703-10-2025 Evaluation note* Diagnosis Onset Date Resolution Status Admit Date Breast cancer, right breast acute November 19, 2024 1:31pm Breast pain, right acute November 19, 2024 1:31pm Breast cancer, right breast acute November 27, 2024 12:49pm Breast pain, right acute November 27, 2024 12:49pm History of breast cancer acute November 30, 2024 1:04pm Mass of right breast acute [facility] 2024 1:04pm Encounter for screening for malignant neoplasm of lung acute December 04, 2024 1:51pm History of tobacco use acute [facility] 2024 1:51pm De Quervain's tenosynovitis acute January 25, 2025 8:21am De Quervain's tenosynovitis, right acute January 25, 2025 8 :21am De Quervain's tenosynovitis, right acute February 05, 2025 2 :10pm De Quervain's tenosynovitis, right acute February 13, 2025 9 :30am De Quervain's tenosynovitis, right acute February 15, 2025 8 :08am S/P right hemicolectomy acute J [facility] 2024 8:03am [facility] Work Phone: 1([phone]) 539-740603-10-2025 Evaluation note* Diagnosis Onset Date Resolution Status Admit Date Breast cancer, right breast acute November 19, 2024 1:31pm Breast pain, right acute November 19, 2024 1:31pm Breast cancer, right breast acute November 27, 2024 12:49pm Breast pain, right acute November 27, 2024 12:49pm History of breast cancer acute November 30, 2024 1:04pm Mass of right breast acute [facility] 2024 1:04pm Encounter for screening for malignant neoplasm of lung acute December 04, 2024 1:51pm History of tobacco use acute [facility] 2024 1:51pm De Quervain's tenosynovitis acute January 25, 2025 8:21am De Quervain's tenosynovitis, right acute May 16th, 2025 8 :21am De Quervain's tenosynovitis, right acute February 05, 2025 2 :10pm De Quervain's tenosynovitis, right acute February 13, 2025 9 :30am De Quervain's tenosynovitis, right acute February 15, 2025 8 :08am S/P right hemicolectomy acute [facility] 2024 8:03am [facility] arthritis, thumb, degenerative acute February 22, 2025 8:58am De Quervain's tenosynovitis, right acute February 22, 2025 8:58am Breast cancer, right breast acute February 27, 2025 1:04pm [facility] Work Phone: [phone]) [phone] NotePap Smear Specimen AdequacyDecember 2023 12:59amComment.Satisfactory for evaluation. Endocervical component may not bedistinguished in cases of atrophy.[facility] INTER[facility]ACED A#[id number] Valley [facility] HospitalComment on above:Satisfactory for evaluation. Endocervical component may not bedistinguished in cases of atrophy.09-10-2024 NotePap Smear Specimen AdequacyDeceer 2023 12:59amComment.Satisfactory for evaluation. Endocervical component may not bedistinguished in cases of atrophy.[facility] INTERFACED A#[id number] Valley Health System [facility] Valley HospitalComment on above:Satisfactory for evaluation. Endocervical component may not bedistinguished in cases of atrophy. 08-20-2024 Evaluation note* Diagnosis Onset Date Resolution Status Admit Date Breast cancer, right breast acute August 20, 2024 1:29pm Encounter for education acute D ecember 2023 1:29pm Encounter for fitting and adjustment of vascular catheter acute August 22, 2 024 1:26pm Elevated BP without diagnosi s of hypertension acute September 10, 2 024 10:17am Breast cancer chronic September 102023 10:17am Encounter for routine gynecological examination noneactive [facility] 2023 10:17am Breast cancer chronic September 10:22am Breast cancer, right breast acute November 19, 2024 1:31pm Breast pain, right acute November 19, 2024 1:31pm Breast cancer, right breast acute November 27, 2024 12:49pm Breast pain, right acute November 27, 2024 12:49pm History of breast cancer acute November 30, 2024 1:04pm Mass of right breast acute [facility] 2024 1:04pm Encounter for screening for malignant neoplasm of lung acute December 04, 2024 1:51pm History of tobacco use acute [facility] 2024 1:51pm [facility] Work Phone: 1(564) 533-413112-02-2024 Evaluation note* Diagnosis Onset Date Resolution Status Admit Date Breast cancer chronic August 11:26am Breast cancer, right breast acute August 20, 2024 1:29pm Encounter for education acute D ecember 2023 1:29pm Encounter for fitting and adjustment of vascular catheter acute August 22 1:26pm Elevated BP without diagnosi s of hypertension acute September 10 10:17am Breast cancer chronic September 102023 10:17am Encounter for routine gynecological examination noneactive Dece[facility] er 2023 10:17am Breast cancer chronic September 10:22am Breast cancer, right breast acute November 19, 2024 1:31pm Breast pain, right acute November 19, 2024 1:31pm Breast cancer, right breast acute November 27, 2024 12:49pm Breast pain, right acute November 27, 2024 12:49pm History of breast cancer acute November 30, 2024 1:04pm Mass of right breast acute [facility] 2024 1:04pm [facility] Work Phone: Consult note Author Bernadette Montero [facility] Note Date/Time February 13, 2025 12:35 pm [facility] Medical Records Department [address] [place] [address] Anesthesia Postop Eval I 02/13/25 1234 MR#: [id number] Acct: [id number] Name: MINOFEDE Daljit Rep #:[id number] : 1970 54 From: Bernadette Montero CRNA PCP: Dr. Carrillo Driscoll MD Status:REG S DC Y Race: C Location: [place] [address] Anesthesia: Postop Eval I Current Vital Signs Temperature: 99 F Pulse Rate: 89 Blood Pressure: 151/82 Respiratory Rate: 18 Pulse Ox: 100 Oxygen Delivery Method: Room Air Assessment Airway patent: Yes Spontaneous unlabored respirations: Yes Mental status: Awake nausea: No Vomiting: No Anesthesia Complication: No Fluid Hydration Crystalloid volume administer (ml): 800 Total IV fluid infused: 800 Progress Note Anesthesia document: Postop Eval 1 completed: Yes 02/13/25 1235 <Electronically signed by Bernadette chung OBSTETRICIAN> Date _ Bernadette Montero OBSTETRICIAN Cosigner Signature: Date CC: ~ Signed [facility] Work Phone: Consult note Author Can Steinberg [facility] Note Date/Time February 20, 2025 10:2 1am [facility] Medical Records Department [address] [place] [address] Anesthesia Postop Eval I 02/20/25 1020 MR#: [id number] Acct: [id number] Name: FEDE LUIS Rep #:[id number] : 1970 54 From: aCn Steinberg PCP: Dr. Carrillo Driscoll MD Status:REG S DC Y Race: C Location: [place] [address] Anesthesia: Postop Eval I Current Vital Signs Temperature: 98.8 F Pulse Rate: 88 Blood Pressure: 117/84 Respiratory Rate: 16 Pulse Ox: 100 Oxygen Delivery Method: Room Air Assessment Airway patent: Yes Spontaneous unlabored respirations: Yes Mental status: Awake and Calm nausea: No Vomiting: No Anesthesia Complication: Yes Anesthesia Complication Comment:: in situ IV infiltrated, case completed before 2nd IV started Fluid Hydration Crystalloid volume administer (ml): 400 Total IV fluid infused: 400 Progress Note Anesthesia document: Postop Eval 1 completed: Yes 02/20/25 1021 <Electronically signed by Can Steinberg > Date _ Can Darden Signature: Date CC: ~ Signed [facility] Work Phone: Consult note Author Thiago Foley [facility] Note Date/Time February 20, 2025 10:5 4am [facility] Medical Records Department [address] [place] [address] Anesthesia Postop Eval II 02/20/25 1034 MR#: [id number] Acct: [id number] Name: FEDE LUIS Rep #:[id number] : 1970 54 From: Thiago Foley MD PCP: Dr. Carrillo Driscoll MD Status:REG S DC Y Race: C Location: [place] [address] Anesthesia Postop Eval I Sum Postop Eval Completion status Anesthesia document: Postop Eval 1 completed: Yes Anesthesia Postop Eval I Summary Anesthesia Postop Eval I Summary: Anesthesia Postop Eval I: Assessment Summary Airway patent Yes 02/20/25 10:21 [email or web address] Spontaneous unlabored Yes 02/20/25 10:21 [email or web address] respirations Mental status Awake,Calm 02/20/25 10:21 [email or web address] nausea No 02/20/25 10:21 [email or web address] Vomiting No 02/20/25 10:21 [email or web address] Anesthesia Postop Eval I: Fluid Summary Crystalloid volume administer 400 02/20/25 10:21 [email or web address] (ml) Colloids volume administered ( ml) Blood Product volume administered (ml) Total IV fluid infused 400 02/20/25 10:21 [email or web address] Anesthesia Postop Eval I: Summary Notes Anesthesia Complication Yes 02/20/25 10:21 [email or web address] Anesthesia Complication in situ IV 02/20/25 10:21 [email or web address] Comment: infiltrated, case completed before 2nd IV started Post-operative progress note Anesthesia: Postop Eval II Evaluation Mental status: Awake Pain Level: 0 nausea: No Vomiting: No 02/20/25 1034 <Electronically signed by Thiago Foley MD > Date _ Thiago Foley MD Cosigner Signature: Date CC: ~ Signed [facility] Work Phone: Discharge summary Author Scot Schreiber [facility] Note Date/Time April 18, 2025 12: 18pm [facility] Medical Records Department [address] [place] [address] Emergency Department Summary 04/18/25 MR#: [id number] Acct: [id number] Name: FEDE LUIS Daljit Rep #:[id number] : 1970 55 From: Scot Finley ggett DO PCP: Dr. Carrillo Driscoll MD Status:REG E R Location: ED HPI History of Present Illness Chief Complaint: Lower Extremity Injury Narrative Narrative: Chief complaint and HPI: Right foot pain. 55-year-old female with multiple comorbidities presents for evaluation of right foot pain. Patient states she stepped off of her father's porch in which she heard a pop. She then developed pain and swelling in the lateral medial aspect of her foot. She endorses pain inthis area. She denies any numbness or tingling. Denies any ankle pain. Review of systems: See HPI Medications: As listed on the chart Allergies: As listed on the chart PFSH: Per chart Vital signs: As listed on the chart. Reviewed. Physical exam: Gen: A&O x3, NAD Head: Normocephalic, atraumatic Eyes: No sclera icterus, conjunctiva clear ENT: Moist mucous membranes CV: Regular rate Resp: Nonlabored respiration Musc: Full range of motion of the right lower extremity except for limited in foot secondary to pain. Patient has obvious swelling to the lateral medial aspect of the foot where she is tender to palpation, no fifth metatarsal tenderness, she has mild tenderness to the inferior aspect of the lateral malleolus without any swelling, DP/PT pulses +2 bilaterally, good capillary refill, compartments soft, sensation intact, no calcaneal tenderness, Achilles tendon intact Skin: Warm, dry Neuro: Alert, oriented, grossly intact, sensation intact Psych: Cooperative, appropriate mood and affect [facility] Medical History Anemia Bilateral leg weakness History of breast cancer Breast pain, right Well woman exam Urinary incontinence Dysuria Encounter for chemotherapy management Diarrhea due to drug Hypokalemia 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 Mucositis CINV (chemotherapy-induced nausea and vomiting) Encounter for education Post-menopausal Cancer Arthritis Migraine headache Former smoker History of pain when walking Mass of right breast History of tobacco use Encounter for screening for malignant neoplasm of lung History of kidney stones History of Thoracic Fracture Back pain Anxiety Endometriosis Home Medications ?Medication ?Instructions ?Recorded ?Last Taken ?Type duloxetine 30 mg capsule,delayed 30 mg PO DAILY anx 02/19/25 History release multivitamin with folic acid 400 1 tab PO DAILY Check with primary 07/19/16 02/19/25 History mcg tablet doctor tizanidine 4 mg capsule (Zanaflex) 4 mg PO QHS PRN Rossy ck with primary 01/18/20 02/19/25 History doctor meloxicam 7.5 mg tablet 7.5 mg PO DAILY 10/28/2007/06 History hydrocodone-acetaminophen 5-325mg 1 tab PO BID PRN maureen n 05/10/24 Unknown History 5mg-325mg anastrozole 1 mg tablet 1 mg PO DAILY #90 tabs 08/2002/19/25 Rx calcium carbonate 600 mg PO DAILY Help with emerita ne loss 12/04/24 02/18/25 History buprenorphine 20 mcg/hour weekly 1 patch topical GALEANA 02/17/25 History transdermal patch (Butrans) oxycodone 5 mg tablet 5 mg PO Q12H PRN pain 5 days #10 02/13/25 Unknown Rx tabs Allergy/AdvReac Type Severity Reaction Status Date / Time cephalexin (From Keflex) Allergy Rash Verified 04/18/25 11:18 Family History Mother Diabetes Arthritis Anemia Hypertension Grandfather Diabetes CVA (cerebral vascular accident) Grandmother Arthritis Surgical History History of surgery on right wrist History of vascular access device History of lumpectomy of right breast Hx of thumb surgery H/O colectomy History of appendectomy H/O elbow surgery clavicle surgery History of back surgery H/O shoulder surgery History of left oophorectomy Social History current occupational status: unemployed Smoking Status: Former smoker alcohol intake: never substance use type: does not use caffeine: Yes what type of physical activity do you participate in: walking and other details: Horseback Riding seatbelt use: always do you feel safe at home: Yes additional social history: EXAM Physical Exam Const Vital Signs: 04/18/25 11:19 Temperature 97.6 F L Temperature Source Temporal Pulse Rate 74 Respiratory Rate 18 Blood Pressure 172/90 H Blood Pressure Mean 117 Pulse Ox 99 Oxygen Delivery Method Room Air MDM MDM MDM Narrative Medical decision making narrative: 55-year-old female with multiple comorbidities presents for evaluation of right foot pain. Patient states she stepped off of her father's porch in which she heard a pop. She then developed pain and swelling in the lateral medial aspect of her foot. See physical exam findings. Diagnosis includes but is not limitedto fracture, sprain, dislocation. Brule given for pain. X-ray of the foot and ankle ordered. X-rays of the foot and ankle were personally reviewed interpreted by me, ED physician. No obvious fracture or dislocation. Radiologyin agreement. Patient is pain is likely secondary to a sprain. Will place Billy bandage for comfort. Educated on RICE therapy. Motrin and Tylenol as needed for pain. Follow-up with primary care physician. Return precautions explained. She confirmed understanding of plan. Impression: 1. Right foot sprain Radiography Diagnostic Testing: Clinical Impression(s) from Imaging Studies Ankle X-Ray 04/18/25 11:50 IMPRESSION: NO ACUTE FRACTURE OR DISLOCATION. Reading Location: [id number] Foot X-Ray 04/18/25 11:50 IMPRESSION: NO ACUTE FRACTURE OR DISLOCATION. Reading Location: [facility] Discharge Plan Triage Chief Complaint: Lower Extremity Injury ED Provider: Scot Schreiber Dx/Rx/DC Orders Prescriptions: No Action tizanidine [Zanaflex] 4 mg capsule 4 mg PO QHS PRN (Reason: Check with primary doctor) meloxicam 7.5 mg tablet 7.5 mg PO DAILY hydrocodone-acetaminophen 5-325 mg tablet 1 tab PO BID PRN (Reason: pain) anastrozole 1 mg tablet 1 mg PO DAILY Qty: 90 3RF calcium carbonate 600 mg calcium (1,500 mg) tablet 600 mg PO DAILY Patient Comments: To help reduce the side effect of bone loss while on Anastrozole. duloxetine 30 MG capsule 30 mg PO DAILY Patient Comments: ANXIETY, PAIN multivitamin with folic acid 1 TABLET tablet 1 tab PO DAILY Patient Comments: SUPPLEMENT buprenorphine [Butrans] 20 mcg/hour patch weekly 1 patch topical GALEANA Patient Comments: On left bicep oxycodone 5 mg tablet 5 mg PO Q12H PRN (Reason: pain) 5 Days Qty: 10 0RF Primary Care Provider: Carrillo Driscoll Chi Referrals: Carrillo Driscoll Chi, MD [Primary Care Provider] - Print Language: Hungarian What to do if you have Problems For any increased pain, shortness of breath, bleeding, nausea or vomiting, chestpain, or any unexpected problems, contact your Primary Care Provider. Call [facility] ([phone]) or report to the closest Emergency Room. Call 911 if necessary. 04/18/25 1218 <Electronically signed by Scot Schreiber DO> Cosigner Signature (if applicable): CC: Dr. Carrillo Driscoll MD ~ Signed [facility] Work Phone: Evaluation note* Diagnosis Onset Date Resolution Status De Quervain's tenosynovitis, left acute [facility] Work Phone: Evaluation note* Diagnosis Onset Date Resolution Status De Quervain's tenosynovitis, left acute Encounter for screening for malignant neoplasm of lung acute History of tobacco use acute [facility] Work Phone: History and physical note Author Em Hazel [facility] Note Date/Time February 20, 2025 9:16 am [facility] Medical Records Department [address] [place] [address] History & Physical Exam 02/20/25912 MR#: [id number] Acct: [id number] Name: FEDE LUIS Rep #:[id number] : 1970 54 From: Em Hazel MD PCP: Dr. 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 Patient is having bowel movements daily denies any blood. Patient denies any family history of colon cancer in an immediate family patient's aunt did have colon cancer., Dad did have polyps. Patient denies any chronic abdominal pain/nausea/vomiting/reflux. 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 Mucositis CINV (chemotherapy-induced nausea and vomiting) Encounter for education Post-menopausal Cancer Arthritis Migraine headache Former smoker History of pain when walking Mass of right breast History of tobacco use Encounter for screening for malignant neoplasm of lung History of kidney stones History of Thoracic Fracture Back pain Anxiety Endometriosis Home Medications ?Medication ?Instructions ?Recorded ?Last Taken ?Type duloxetine 30 mg capsule,delayed 30 mg PO DAILY anx 02/19/25 History release multivitamin with folic acid 400 1 tab PO DAILY Check with primary 07/19/16 02/19/25 History mcg tablet doctor tizanidine 4 mg capsule (Zanaflex) 4 mg PO QHS PRN Rossy ck with primary 01/18/20 02/19/25 History doctor meloxicam 7.5 mg tablet 7.5 mg PO DAILY 10/28/2007/06 History hydrocodone-acetaminophen 5-325mg 1 tab PO BID PRN maureen n 05/10/24 Unknown History 5mg-325mg anastrozole 1 mg tablet 1 mg PO DAILY #90 tabs 08/2002/19/25 Rx calcium carbonate 600 mg PO DAILY Help with emerita ne loss 12/04/24 02/18/25 History buprenorphine 20 mcg/hour weekly 1 patch topical GALEANA 02/17/25 History transdermal patch (Butrans) oxycodone 5 mg tablet 5 mg PO Q12H PRN pain 5 days #10 02/13/25 Unknown Rx tabs Allergy/AdvReac Type Severity Reaction Status Date / Time cephalexin (From [employer]) Allergy Rash Verified 02/20/25 08:23 Family History Mother Diabetes Arthritis Anemia Hypertension Grandfather Diabetes CVA (cerebral vascular accident) Grandmother Arthritis Surgical History History of surgery on right wrist History of vascular access device History of lumpectomy of right breast Hx of thumb surgery H/O colectomy History of appendectomy H/O elbow surgery clavicle surgery History of back surgery H/O shoulder surgery History of left oophorectomy Social History current occupational status: unemployed Smoking Status: Former smoker alcohol intake: never substance use type: does not use caffeine: Yes what type of physical activity do you participate in: walking and other details: Horseback Riding seatbelt use: always do you feel safe at home: Yes additional social history: Past Medical/Surgical History Planned Operation Planned Operative Procedure(s): CSCOPE S.O.S: No Previous Hospitalizations/Surgeries HX Hospitalizations: No HX of Surgeries: MICRODISCECTOMY 2003 BACK SURGERY 2005 PLATE IN CLAVICLE 2006, REMOVAL 2006 2010 REMOVAL SOFT TISSUE MASS LEFT GROIN 07/26/2016 LAPAROSCOPIC LEFT OVARIAN CYSTECTOMY, SALPING-OOPHORECTOMY LEFT L ELBOW ARTHROSCOPY, LATERAL EPICONDRYLAR RELEASE 02/201702/07/19 COLONOSCOPY Any Problems With Anesthesia: No You/Your Family Experience Fever (Hyperthermia) With Anes: No Cholinesterase deficiency: No Cardiovascular Hx Chest Pain within Last 2 months: No Hx of Irregular Heartbeat and/or Afib: No Hx Heart Attack: No Hx Congestive Heart Failure: No Hx Rheumatic Fever: No Hx Hypertension: No Hx Internal Defibrillator: No Hx Pacemaker: No Hx Cardiac Catheterization: No Hx Cardiac Surgery/Stents/Etc.: No Hx Stress Test: No Hx Pain in Legs when Walking/Leg Cramps: No Respiratory Chronic Cough: No HX of Shortness of Breath: No Hoarseness: No Hx Chronic Obstructive Pulmonary Disease (COPD): No Hx Asthma: No Hx Emphysema: No Hx Sleep Apnea: No CPAP: No Hx Respiratory Tract Infection/Cold (presently): No Do You Snore Loudly (louder than talking or can be heard): No Do You Often Feel Tired/ Fatigued/ Sleepy Dring Daytime?: Yes Has Anyone Observed You Stop Breathing During Sleep?: No Result (for STOP score): Negative Hx Smoking: Yes (QUIT SMOKING OCT 2015) Smoking Status: Former smoker Gastrointestinal Hx Gastrointestinal Disorders: No Hx Gastrointestinal Bleed: No Hx Ulcer: No Hx Hiatal Hernia: No Difficulty Chewing/Swallowing: No Special diet followed at home: No Hx Unplanned Weight Loss of 20#: No HX Unplanned Weight Gain of 20#: No Neurological Hx Seizures: No HX Syncope/Blackout Spells/Unconsciousness: No Hx Transient Ischemic Attacks (TIA): No Hx Multiple Sclerosis: No Hx Parkinson's Disease: No Hx Head/Neck Injury: Yes (CONCUSSION PER HX,CERVICAL BULGING DISC) Hx Headaches: No Hx Back Injury/Pain: Yes (DEGENERATIVE DISC, BULGE DISC, BACK SURGERY) Recent Onset of Speech Difficulty: No Restless Legs: No Does patient have nerve stimulator: No Blood Disorder Hx Leukemia: No Bleeding Tendencies: No Hx Deep Vein Thrombosis: No Hx High Cholesterol: No Blood Transmitted Disease: No Hx Hepatitis: No Hx Cirrhosis: No Hx Anemia: No Hx Blood Disorders: No Reproduction : No Is Patient Lactating: No Hx Hysterectomy: No Hx Tubal Ligation: No Are You Post Menopause: Yes Genitourinary Hx Renal Disease: No Musculoskeletal Hx Arthritis: Yes Hx Rheumatoid Arthritis: No Hx Gout: No Recent Onset of an Orthopedic Problem: No Endocrine Hx Diabetes: No Thyroid Disease: No Hx Steroid Therapy: Yes (PAIN MANAGEMENT) Psycho/Social Hx Substance Use: No Hx Alcohol Use: No Hx Anxiety: Yes (ON MED) Hx Depression: No Mental Illness: No Hx Dementia: No Miscellaneous Hx Cancer: No Recent Exposure to Contagious Disease: No Hx of C-Diff: No Any Loose Teeth: No Allergies cephalexin (From Keflex) Allergy (Verified 02/20/25 08:23) Rash Discharge Is Pt Admitted From a Prison, or a [facility]ci: No After D/C, Where Do you Plan to Go: Return Home Vital Signs Vital Signs Vital Signs: 02/20/25 08:25 02/20/25 08:26 02/20/25 08:42 Temperature 97.9 F 97.9 F Temperature Source Temporal Pulse Rate 97 97 Respiratory Rate 18 18 Respiratory Pattern Normal Blood Pressure 148/84 H 148/84 H Blood Pressure Mean 105 Blood Pressure Source Monitor Blood Pressure Position Semi-Fowlers Blood Pressure Location Left Arm Pulse Ox 98 98 Oxygen Delivery Method Room Air Weight Weight: 163 lb Body Mass Index (BMI) 24.7 Physical Exam Const alert, oriented x3 and no apparent distress HEENT normocephalic and head/scalp atraumatic Resp normal respiratory effort Cardio regular rate GI soft to palpation and non-tender; Negative for non-distended Palpation: Negative for guarding Extremity no clubbing, cyanosis or edema Skin no rashes or lesions noted Neuro CN's II-XII intact bilaterally Psych mental status grossly normal Assessment & Plan Assessment/Plan (1) S/P right hemicolectomy: Surgery Risks - Colonoscopy Risks Include but are not Limited To: Risks include but are not limited to: Bleeding, perforation requiring further surgery, inability to complete colonoscopy requiring barium enema. 02/20/25 0916 <Electronically signed by Em Hazel MD> Cosigner Signature (if applicable): CC: Dr. Carrillo Driscoll MD; Dr. Em Hazel MD~ Signed [facility] Work Phone: Hospital Discharge instructions Additional Instructions Follow-up with your painter spring for further management of your pain issues.[facility] Work Phone: Hospital Discharge instructionsAdditional Instructions Billy bandage for comfort. Ice and elevation as needed for swelling. Tylenol Motrin as needed for pain. Follow-up with primary care physician.[facility] Work Phone: Reason for referral (narrative)No reason for referral information availableWooTr[facility] Work Phone: Chief Complaint and Reason for Visit Chief Complaint left thumb FALL Reason for Visit De Quervain's tenosy novitis, left Chief Complaint left thumb FALL Radiculopathy, thoracic region Reason for Visit De Quervain's tenosy novitis, left Chief Complaint LEFT THUMB Lung Cancer Screening PREVIOUS SMOKER Reason for Visit De Quervain's tenosy novitis, left Encounter for screening for malignant neoplasm of lung History of tobacco use Chief Complaint LEFT THUMB Lung Cancer Screening PREVIOUS SMOKER SCREENING Reason for Visit De Quervain's tenosy novitis, left Encounter for screening for malignant neoplasm of lung History of tobacco use Chief Complaint LEFT THUMB Lung Cancer Screening PREVIOUS SMOKER SCREENING RT BREAST ABN MAMM Reason for Visit De Quervain's tenosy novitis, left Encounter for screening for malignant neoplasm of lung History of tobacco use Chief Complaint Admit Date OTV August 08, 2024 9:45am OTV August 13, 2024 1 1:26am Amb Documentation August 13, 2024 1 1:27am SCP/ENDOCRINE THERAPY - LABS August 1:29pm PORT REMOVAL August 22, 2024 1:26pm 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 RX HERE November 292024 10:00am BREAST DENSITY AT LUMPECTOMY SITE November 30, 2024 1:04pm Reason for Visit Admit Date Breast cancer August 13, 2024 1 1:26am Breast cancer, right breast August 1:29pm Encounter for education August 20 1:29pm Encounter for fitting and adjustment of vascular catheter August 22, 2024 1:26pm Elevated BP without diagnosis of hyperte nsion September 10, 2024 10:17am Breast cancer September 10, 2024 10:17am Encounter for routine gynecological exam ination September 10, 2024 10:17am Breast cancer September 13, 2024 10 :22am Breast cancer, right breast November 19, 2024 1:31pm Breast pain, right November 19, 2024 1:3 1pm Breast cancer, right breast November 27, 2024 12:49pm Breast pain, right November 27, 2024 12: 49pm History of breast cancer November 30 1:04pm Mass of right breast November 30, 2024 1: 04pm Chief Complaint Admit Date SCP/ENDOCRINE THERAPY - LABS August 1:29pm PORT REMOVAL August 22, 2024 1:26pm 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 RX HERE December 10:00am Reason for Visit Admit Date Breast cancer, right breast August 1:29pm Encounter for education August 20 1:29pm Encounter for fitting and adjustment of vascular catheter August 22, 2024 1:26pm Elevated BP without diagnosis of hyperte nsion September 10, 2024 10:17am Breast cancer September 10, 2024 10:17am Encounter for routine gynecological exam ination September 10, 2024 10:17am Breast cancer September 13, 2024 10 :22am Breast cancer, right breast November 19, 2024 1:31pm Breast pain, right November 19, 2024 1:3 1pm Breast cancer, right breast November 27, 2024 12:49pm Breast pain, right November 27, 2024 12: 49pm History of breast cancer November 30 1:04pm Mass of right breast November 30, 2024 1: 04pm Encounter for screening for malignant ne oplasm of lung December 04, 2024 1:51pm History of tobacco use December 04, 2024 1:51pm Chief Complaint Admit Date 3 MO - LABS November 19, 2024 1:3 1pm XRT November 19, 2024 1:4 5pm RT BREAST PAIN November 23, 2024 8:5 1am REVIEW MAMMO November 27, 2024 12: 49pm BREAST DENSITY AT LUMPECTOMY SITE November 30, 2024 1:04pm LUNG CANCER SCREENING December 04, 2024 1 :51pm SCREENING December 04, 2024 2:2 9pm ABN TOMMY RT BREAST December 06, 2024 11: 58am BILATERAL LEG WEAKNESS. RX HERE December 252024 10:00am Reason for Visit Admit Date Breast cancer, right breast November 19, 2024 1:31pm Breast pain, right November 19, 2024 1:3 1pm Breast cancer, right breast November 27, 2024 12:49pm Breast pain, right November 27, 2024 12: 49pm History of breast cancer November 30 1:04pm Mass of right breast November 30, 2024 1: 04pm Encounter for screening for malignant ne oplasm of lung December 04, 2024 1:51pm History of tobacco use December 04, 2024 1:51pm Chief Complaint Admit Date 3 MO - LABS November 19, 2024 1:3 1pm XRT November 19, 2024 1:4 5pm RT BREAST PAIN November 23, 2024 8:5 1am REVIEW MAMMO November 27, 2024 12: 49pm BREAST DENSITY AT LUMPECTOMY SITE November 30, 2024 1:04pm LUNG CANCER SCREENING December 04, 2024 1 :51pm SCREENING December 04, 2024 2:2 9pm ABN TOMMY RT BREAST December 06, 2024 11: 58am BILATERAL LEG WEAKNESS. RX HERE December 252024 10:00am Radiculopathy, cervical region January 17, 2025 1:15pm Chief Complaint Admit Date 3 MO - LABS November 19, 2024 1:3 1pm XRT November 19, 2024 1:4 5pm RT BREAST PAIN November 23, 2024 8:5 1am REVIEW MAMMO November 27, 2024 12: 49pm BREAST DENSITY AT LUMPECTOMY SITE November 30, 2024 1:04pm LUNG CANCER SCREENING December 04, 2024 1 :51pm SCREENING December 04, 2024 2:2 9pm ABN TOMMY RT BREAST December 06, 2024 11: 58am BILATERAL LEG WEAKNESS. RX HERE Jenn 15 th, 2025 10:00am Radiculopathy, cervical region January 17, 2025 1:15pm RIGHT HAND January 25, 2025 8:21a m Xray Room 2 January 25, 2025 8:44a m Chief Complaint Admit Date 3 MO - LABS November 19, 2024 1:3 1pm XRT November 19, 2024 1:4 5pm RT BREAST PAIN November 23, 2024 8:5 1am REVIEW MAMMO November 27, 2024 12: 49pm BREAST DENSITY AT LUMPECTOMY SITE November 30, 2024 1:04pm LUNG CANCER SCREENING December 04, 2024 1 :51pm SCREENING December 04, 2024 2:2 9pm ABN TOMMY RT BREAST December 06, 2024 11: 58am BILATERAL LEG WEAKNESS. RX HERE December 252024 10:00am Radiculopathy, cervical region January 17, 2025 1:15pm RIGHT HAND January 25, 2025 8:21a m Xray Room 2 January 25, 2025 8:44a m RIGHT HAND February 05, 2025 2:10p m Reason for Visit Admit Date Breast cancer, right breast November 19, 2024 1:31pm Breast pain, right November 19, 2024 1:3 1pm Breast cancer, right breast November 27, 2024 12:49pm Breast pain, right November 27, 2024 12: 49pm History of breast cancer November 30 1:04pm Mass of right breast November 30, 2024 1: 04pm Encounter for screening for malignant ne oplasm of lung December 04, 2024 1:51pm History of tobacco use December 04, 2024 1:51pm De Quervain's tenosynovitis January 25 8:21am De Quervain's tenosynovitis, right January 102024 8:21am De Quervain's tenosynovitis, right January 112024 2:10pm Chief Complaint Admit Date 3 MO - LABS November 19, 2024 1:3 1pm XRT November 19, 2024 1:4 5pm RT BREAST PAIN November 23, 2024 8:5 1am REVIEW MAMMO November 27, 2024 12: 49pm BREAST DENSITY AT LUMPECTOMY SITE November 30, 2024 1:04pm LUNG CANCER SCREENING December 04, 2024 1 :51pm SCREENING December 04, 2024 2:2 9pm ABN TOMMY RT BREAST December 06, 2024 11: 58am BILATERAL LEG WEAKNESS. RX HERE December 252024 10:00am Radiculopathy, cervical region January 17, 2025 1:15pm RIGHT HAND January 25, 2025 8:21a m Xray Room 2 January 25, 2025 8:44a m RIGHT HAND February 05, 2025 2:10p m C50.411 February 11, 2025 8:44a m Reason for Visit Admit Date Breast cancer, right breast November 19, 2024 1:31pm Breast pain, right November 19, 2024 1:3 1pm Breast cancer, right breast November 27, 2024 12:49pm Breast pain, right November 27, 2024 12: 49pm History of breast cancer November 30 1:04pm Mass of right breast November 30, 2024 1: 04pm Encounter for screening for malignant ne oplasm of lung December 04, 2024 1:51pm History of tobacco use December 04, 2024 1:51pm De Quervain's tenosynovitis January 25 8:21am De Quervain's tenosynovitis, right January 102024 8:21am De Quervain's tenosynovitis, right January 112024 2:10pm De Quervain's tenosynovitis, right February 13, 2025 9:30am Chief Complaint Admit Date 3 MO - LABS November 19, 2024 1:3 1pm XRT November 19, 2024 1:4 5pm RT BREAST PAIN November 23, 2024 8:5 1am REVIEW MAMMO November 27, 2024 12: 49pm BREAST DENSITY AT LUMPECTOMY SITE November 30, 2024 1:04pm LUNG CANCER SCREENING December 04, 2024 1 :51pm SCREENING December 04, 2024 2:2 9pm ABN TOMMY RT BREAST December 06, 2024 11: 58am BILATERAL LEG WEAKNESS. RX HERE December 252024 10:00am Radiculopathy, cervical region January 17, 2025 1:15pm RIGHT HAND January 25, 2025 8:21a m Xray Room 2 January 25, 2025 8:44a m RIGHT HAND February 05, 2025 2:10p m C50.411 February 11, 2025 8:44a m post op February 15, 2025 8:08a m Reason for Visit Admit Date Breast cancer, right breast November 19, 2024 1:31pm Breast pain, right November 19, 2024 1:3 1pm Breast cancer, right breast November 27, 2024 12:49pm Breast pain, right November 27, 2024 12: 49pm History of breast cancer November 30 1:04pm Mass of right breast November 30, 2024 1: 04pm Encounter for screening for malignant ne oplasm of lung December 04, 2024 1:51pm History of tobacco use December 04, 2024 1:51pm De Quervain's tenosynovitis January 25 8:21am De Quervain's tenosynovitis, right January 102024 8:21am De Quervain's tenosynovitis, right January 112024 2:10pm De Quervain's tenosynovitis, right February 13, 2025 9:30am De Quervain's tenosynovitis, right February 15, 2025 8:08am Reason for Visit Admit Date Breast cancer, right breast November 19, 2024 1:31pm Breast pain, right November 19, 2024 1:3 1pm Breast cancer, right breast November 27, 2024 12:49pm Breast pain, right November 27, 2024 12: 49pm History of breast cancer November 30 1:04pm Mass of right breast November 30, 2024 1: 04pm Encounter for screening for malignant ne oplasm of lung December 04, 2024 1:51pm History of tobacco use December 04, 2024 1:51pm De Quervain's tenosynovitis January 25 8:21am De Quervain's tenosynovitis, right January 102024 8:21am De Quervain's tenosynovitis, right January 112024 2:10pm De Quervain's tenosynovitis, right February 13, 2025 9:30am De Quervain's tenosynovitis, right February 15, 2025 8:08am S/P right hemicolectomy February 20, 2025 8:03am Chief Complaint Admit Date 3 MO - LABS November 19, 2024 1:3 1pm XRT November 19, 2024 1:4 5pm RT BREAST PAIN November 23, 2024 8:5 1am REVIEW MAMMO November 27, 2024 12: 49pm BREAST DENSITY AT LUMPECTOMY SITE November 30, 2024 1:04pm LUNG CANCER SCREENING December 04, 2024 1 :51pm SCREENING December 04, 2024 2:2 9pm ABN TOMMY RT BREAST December 06, 2024 11: 58am BILATERAL LEG WEAKNESS. RX HERE December 252024 10:00am Radiculopathy, cervical region January 17, 2025 1:15pm RIGHT HAND January 25, 2025 8:21a m Xray Room 2 January 25, 2025 8:44a m RIGHT HAND February 05, 2025 2:10p m C50.411 February 11, 2025 8:44a m post op February 15, 2025 8:08a m 1 W FU February 22, 2025 8:58 am Chief Complaint Admit Date 3 MO - LABS November 19, 2024 1:3 1pm RT BREAST PAIN November 23, 2024 8:5 1am REVIEW MAMMO November 27, 2024 12: 49pm BREAST DENSITY AT LUMPECTOMY SITE November 30, 2024 1:04pm LUNG CANCER SCREENING December 04, 2024 1 :51pm SCREENING December 04, 2024 2:2 9pm ABN TOMMY RT BREAST December 06, 2024 11: 58am BILATERAL LEG WEAKNESS. RX HERE December 252024 10:00am Radiculopathy, cervical region January 17, 2025 1:15pm RIGHT HAND January 25, 2025 8:21a m Xray Room 2 January 25, 2025 8:44a m RIGHT HAND February 05, 2025 2:10p m C50.411 February 11, 2025 8:44a m post op February 15, 2025 8:08a m 1 W FU February 22, 2025 8:58 am BACK AND NECK PAIN. RX HERE February 26, 9:48am 3 MO - LABS February 27, 2025 1:04 pm XRT February 27, 2025 1:15 pm Reason for Visit Admit Date Breast cancer, right breast November 19, 2024 1:31pm Breast pain, right November 19, 2024 1:3 1pm Breast cancer, right breast November 27, 2024 12:49pm Breast pain, right November 27, 2024 12: 49pm History of breast cancer November 30 1:04pm Mass of right breast November 30, 2024 1: 04pm Encounter for screening for malignant ne oplasm of lung December 04, 2024 1:51pm History of tobacco use December 04, 2024 1:51pm De Quervain's tenosynovitis January 25 8:21am De Quervain's tenosynovitis, right January 102024 8:21am De Quervain's tenosynovitis, right January 112024 2:10pm De Quervain's tenosynovitis, right February 13, 2025 9:30am De Quervain's tenosynovitis, right February 15, 2025 8:08am S/P right hemicolectomy February 20, 2025 8:03am CMC arthritis, thumb, degenerative February 22, 2025 8:58am De Quervain's tenosynovitis, right February 22, 2025 8:58am Breast cancer, right breast February 27 1:04pm Chief Complaint Admit Date BILATERAL LEG WEAKNESS. RX HERE December 252024 10:00am Radiculopathy, cervical region January 17, 2025 1:15pm RIGHT HAND January 25, 2025 8:21a m Xray Room 2 January 25, 2025 8:44a m RIGHT HAND February 05, 2025 2:10p m C50.411 February 11, 2025 8:44a m post op February 15, 2025 8:08a m 1 W FU February 22, 2025 8:58 am 3 MO - LABS February 27, 2025 1:04 pm XRT February 27, 2025 1:15 pm BACK AND NECK PAIN. RX HERE April 15, 2025 10:00am FOOT April 18, 2025 11: 18am Reason for Visit Admit Date De Quervain's tenosynovitis January 25 8:21am De Quervain's tenosynovitis, right January 102024 8:21am De Quervain's tenosynovitis, right January 112024 2:10pm De Quervain's tenosynovitis, right February 13, 2025 9:30am De Quervain's tenosynovitis, right February 15, 2025 8:08am S/P right hemicolectomy February 20, 2025 8:03am CMC arthritis, thumb, degenerative February 22, 2025 8:58am De Quervain's tenosynovitis, right February 22, 2025 8:58am Breast cancer, right breast February 27, 2 025 1:04pm Chief Complaint Admit Date Radiculopathy, cervical region January 17, 2025 1:15pm RIGHT HAND January 25, 2025 8:21a m Xray Room 2 January 25, 2025 8:44a m RIGHT HAND February 05, 2025 2:10p m C50.411 February 11, 2025 8:44a m post op February 15, 2025 8:08a m 1 W FU February 22, 2025 8:58 am 3 MO - LABS February 27, 2025 1:04 pm XRT February 27, 2025 1:15 pm FOOT April 18, 2025 11: 18am SOB April 23, 2025 10 :23am BACK AND NECK PAIN. RX HERE April 23, 2025 11:00am SOB April 25, 2025 8: 51am Chief Complaint Admit Date Radiculopathy, cervical region January 17, 2025 1:15pm RIGHT HAND January 25, 2025 8:21a m Xray Room 2 January 25, 2025 8:44a m RIGHT HAND February 05, 2025 2:10p m C50.411 February 11, 2025 8:44a m post op February 15, 2025 8:08a m 1 W FU February 22, 2025 8:58 am 3 MO - LABS February 27, 2025 1:04 pm XRT February 27, 2025 1:15 pm FOOT April 18, 2025 11: 18am SOB April 23, 2025 10 :23am Shortness of breath April 23, 2025 10 :33am SOB April 25, 2025 8: 51am BACK AND NECK PAIN. RX HERE April 30, 2025 9:00am SOB May 01, 2025 1: 53pm Family History Relationship Condition Age at Onset Recorded Date/T janelle mother Diabetes mellitus Unknown Unknown Anemia Unknown Hypertension Unknown grandfather Diabetes mellitus Unknown Cerebrovascular accident (CVA) Unknown aunt Malignant neoplasm of breast Unknown grandmother Unknown Relationship Condition Age at Onset Recorded Date/T janelle mother Diabetes mellitus Unknown Unknown Anemia Unknown Hypertension Unknown grandfather Diabetes mellitus Unknown Cerebrovascular accident (CVA) Unknown grandmother Unknown Advance Directives Advance Directive Response Recorded Date/ Time Advance Directives No December 12 8:24am Living Will No July 16 2:13pm Power of Bus Driver School No July 16, 2022 2:13pm Advance Directive Response Recorded Date/ Time Advance Directives No December 12 7:24am Living Will No July 16 1:13pm Power of [employer] Driver [employer] No July 16, 2022 1:13pm Advance Directive Response Recorded Date/ Time Living Will Yes June 28 10:37am Do you have a Healthcare Power of Bus Driver School? Yes June 28, 2024 10:37am Advance Directives on File No Octob er 2023 10:37am Name of Medical Power of Bus Driver School Andra June 28, 2024 10:37am Advance Directives Yes June 28, 2024 10:37am Advance Directive Response Recorded Date/ Time Advance Directives on File No Octob er 2023 10:37am Living Will Yes June 28 10:37am Do you have a Healthcare Power of Bus Driver School? Yes June 28, 2024 10:37am Name of Medical Power of [employer] Driver [employer] Andra June 28, 2024 10:37am Advance Directives Yes June 28, 2024 10:37am Advance Directive Response Recorded Date/ Time Advance Directives Yes January 24 10:04am Advance Directives on File No Octob er 2023 10:37am Living Will Yes June 28 10:37am Do you have a Healthcare Power of Bus Driver [employer]? Yes June 28, 2024 10:37am Name of Medical Power of [employer] Driver [employer] Andra June 28, 2024 10:37am Advance Directive Response Recorded Date/ Time Advance Directives Yes January 25 9:06am Advance Directives on File No Octob er 2023 10:37am Living Will Yes June 28 10:37am Do you have a Healthcare Power of [employer] Driver [employer]? Yes June 28, 2024 10:37am Name of Medical Power of [employer] Driver [employer] Andra June 28, 2024 10:37am Advance Directive Response Recorded Date/ Time Advance Directives Yes January 25 9:06am Do you have a Healthcare Power of Bus Driver [employer]? Yes February 07, 2025 11:17am Advance Directives on File No Octob er 2023 10:37am Living Will Yes June 28 10:37am Do you have a Healthcare Power of Bus Driver [employer]? Yes June 28, 2024 10:37am Name of Medical Power of Bus Driver [employer] Andra June 28, 2024 10:37am Advance Directive Response Recorded Date/ Time Advance Directives Yes January 25 9:06am Do you have a Healthcare Power of Bus Driver [employer]? Yes February 07, 2025 11:17am Advance Directives on File No Octob er 2023 10:37am Living Will Yes June 28 10:37am Do you have a Healthcare Power of Bus Driver [employer]? Yes June 28, 2024 10:37am Name of Medical Power of [employer] Driver [employer] Andra June 28, 2024 10:37am Do you have a Healthcare Power of Bus Driver [employer]? Yes February 07, 2025 11:28am Advance Directive Response Recorded Date/ Time Advance Directives Yes January 25 9:06am Do you have a Healthcare Pow er of Bus Driver School? Yes February 07, 2025 11:17am Advance Directives on File No Octob er 2023 10:37am Living Will Yes June 28 10:37am Do you have a Healthcare Pow er of Bus Driver School? Yes June 28, 2024 10:37am Name of Medical Power of Bus Driver [employer] Andra June 28, 2024 10:37am Do you have a Healthcare Pow er of Bus Driver School? Yes February 07, 2025 11:28am Do you have a Healthcare Pow er of Bus Driver School? Yes April 18, 2025 11:26am Name of Medical Power of Bus Driver School Pradip Thornton- sister April 18, 2025 11:26am Summary Purpose Additional Source Comments Care Teams (unrecognized sec tion and content) Team Status: Active Member Role Status Dates Dr. Carrillo Driscoll MD Family Provider Active Dr. Carrillo Driscoll MD Primary Care Provider Active Team Status: Inactive Member Role Status Dates Dr. Carrillo Driscoll MD Primary Care Provider, Referring Provider Active Dr. Silvino Toscano DO Attending Provider Active Team Status: Inactive Member Role Status Dates Dr. Carrillo Driscoll MD Primary Care Provider, Referring Provider Active Renetta Oden PIPE WASHER, PIPE WASHER-C Attending Provider Active Team Status: Inactive Member Role Status Dates Dr. Carrillo Driscoll MD Primary Care Provider Active Renetta Oden PIPE WASHER, PIPE WASHER-C Attending Provider, Referring Provider Active Team Status: Inactive Member Role Status Dates Dr. Carrillo Driscoll MD Primary Care Provider, Attending Provider Active Team Status: Active Member Role Status Dates Dr. Carrillo Driscoll MD Primary Care Provi rufina, Attending Provider, Referring Provider Active Team Status: Inactive Member Role Status Dates Dr. Carrillo Driscoll MD Primary Care Provi rufina, Attending Provider, Referring Provider Active Team Status: Active Member Role Status Dates Dr. Carrillo Driscoll MD Primary Care Provider Active Team Status: Inactive Member Role Status Dates Dr. Carrillo Driscoll MD Primary Care Provider Active Start: August 08, 2024 End: August 08, 2024 Dr. Gerardo Cooley DO Attending Provider Active Start: August 08, 2024 End: August 08, 2024 Dr. Gerardo Cooley DO Referring Provider Active Start: August 08, 2024 End: August 08, 2024 Team Status: Inactive Member Role Status Dates Dr. Carrillo Driscoll MD Primary Care Provider Active Start: August 13, 2024 End: August 13, 2024 Dr. Gerardo Cooley DO Attending Provider Active Start: August 13, 2024 End: August 13, 2024 Dr. Gerardo Cooley DO Referring Provider Active Start: August 13, 2024 End: August 13, 2024 Team Status: Active Member Role Status Dates Dr. Carrillo Driscoll MD Primary Care Provider Active Start: August 13, 2024 Dr. Gerardo Cooley DO Attending Provider Active Start: August 13, 2024 Team Status: Inactive Member Role Status Dates Dr. Carrillo Driscoll MD Primary Care Provider Active Start: August 20, 2024 End: August 20, 2024 Dr. Carrillo Driscoll MD Referring Provider Active Start: August 20, 2024 End: August 20, 2024 Renetta Oden NP PIPE WASHER-C Attending Provider Active Start: August 20, 2024 End: August 20, 2024 Team Status: Inactive Member Role Status Dates Dr. Carrillo Driscoll MD Primary Care Provider Active Start: August 22, 2024 End: August 22, 2024 Dr. Carrillo Driscoll MD Referring Provider Active Start: August 22, 2024 End: August 22, 2024 Dr. Em Hazel MD Attending Provider Active Start: August 22, 2024 End: August 22, 2024 Team Status: Inactive Member Role Status Dates Dr. Carrillo Driscoll MD Primary Care Provider Active Start: September 10, 2024 End: September 10, 2024 Dr. Carrillo Driscoll MD Referring Provider Active Start: September 10, 2024 End: September 10, 2024 NOLAN Navarro Attending Provider Active Start: September 10, 2024 End: September 10, 2024 Team Status: Inactive Member Role Status Dates Dr. Carrillo Driscoll MD Primary Care Provider Active Start: September 10, 2024 End: September 10, 2024 NOLAN Navarro Attending Provider Active Start: September 10, 2024 End: September 10, 2024 NOLAN Navarro Referring Provider Active Start: September 10, 2024 End: September 10, 2024 Team Status: Inactive Member Role Status Dates Dr. Carrillo Driscoll MD Primary Care Provider Active Start: September 13, 2024 End: September 13, 2024 Dr. Carrillo Driscoll MD Referring Provider Active Start: September 13, 2024 End: September 13, 2024 Dr. Gerardo Cooley DO Attending Provider Active Start: September 13, 2024 End: September 13, 2024 Team Status: Inactive Member Role Status Dates Dr. Carrillo Driscoll MD Primary Care Provider Active Start: November 19, 2024 End: November 19, 2024 Dr. Carrillo Driscoll MD Referring Provider Active Start: November 19, 2024 End: November 19, 2024 Renetta Oden NP PIPE WASHER-C Attending Provider Active Start: November 19, 2024 End: November 19, 2024 Team Status: Active Member Role Status Dates Dr. Silvino Collins MD Attending Provider Active S tart: November 19, 2024 Dr. Silvino Collins MD Referring Provider Active S tart: November 19, 2024 Dr. Carrillo Driscoll MD Primary Care Provider Active Start: November 19, 2024 Team Status: Inactive Member Role Status Dates Dr. Carrillo Driscoll MD Primary Care Provider Active Start: November 23, 2024 End: November 23, 2024 Renetta Akshat PIPE WASHER, PIPE WASHER-C Attending Provider Active Start: November 23, 2024 End: November 23, 2024 Renetta Akshat PIPE WASHER, PIPE WASHER-C Referring Provider Active Start: November 23, 2024 End: November 23, 2024 Team Status: Inactive Member Role Status Dates Dr. Carrillo Driscoll MD Primary Care Provider Active Start: November 27, 2024 End: November 27, 2024 Dr. Carrillo Driscoll MD Referring Provider Active Start: November 27, 2024 End: November 27, 2024 Renetta Akshat PIPE WASHER, PIPE WASHER-C Attending Provider Active Start: November 27, 2024 End: November 27, 2024 Team Status: Active Member Role Status Dates Dr. Carrillo Driscoll MD Primary Care Provider Active Start: November 29, 2024 Renetta Akshat PIPE WASHER, PIPE WASHER-C Attending Provider Active Start: November 29, 2024 Renetta Akshat PIPE WASHER, PIPE WASHER-C Referring Provider Active Start: November 29, 2024 Team Status: Inactive Member Role Status Dates Dr. Carrillo Driscoll MD Primary Care Provider Active Start: November 30, 2024 End: November 30, 2024 Dr. Carrillo Driscoll MD Referring Provider Active Start: November 30, 2024 End: November 30, 2024 Dr. Em Hazel MD Attending Provider Active Start: November 30, 2024 End: November 30, 2024 Team Status: Inactive Member Role Status Dates Dr. Carrillo Driscoll MD Primary Care Provider Active Start: December 04, 2024 End: December 04, 2024 Dr. Carrillo Driscoll MD Referring Provider Active Start: December 04, 2024 End: December 04, 2024 Renetta Akshat PIPE WASHER, PIPE WASHER-C Attending Provider Active Start: December 04, 2024 End: December 04, 2024 Team Status: Inactive Member Role Status Dates Dr. Carrillo Driscoll MD Primary Care Provider Active Start: December 04, 2024 End: December 04, 2024 Renetta Akshat PIPE WASHER, PIPE WASHER-C Attending Provider Active Start: December 04, 2024 End: December 04, 2024 Renetta Akshat PIPE WASHER, PIPE WASHER-C Referring Provider Active Start: December 04, 2024 End: December 04, 2024 Team Status: Inactive Member Role Status Dates Dr. Carrillo Driscoll MD Primary Care Provider Active Start: December 06, 2024 End: December 06, 2024 Dr. Em Hazel MD Attending Provider Active Start: December 06, 2024 End: December 06, 2024 Dr. Em Hazel MD Referring Provider Active Start: December 06, 2024 End: December 06, 2024 Team Status: Active Member Role Status Dates Dr. Carrillo Driscoll MD Primary Care Provider Active Start: December 11, 2024 Renetta Akshat PIPE WASHER, PIPE WASHER-C Attending Provider Active Start: December 11, 2024 Renetta Akshat PIPE WASHER, PIPE WASHER-C Referring Provider Active Start: December 11, 2024 Dr. Jorge Alberto Moreno MD Other Provider Active Star t: December 11, 2024 Team Status: Inactive Member Role Status Dates Dr. Carrillo Driscoll MD Primary Care Provider Active Start: December 25, 2024 End: December 25, 2024 Renetta Akshat PIPE WASHER, PIPE WASHER-C Attending Provider Active Start: December 25, 2024 End: December 25, 2024 Renetta Akshat PIPE WASHER, PIPE WASHER-C Referring Provider Active Start: December 25, 2024 End: December 25, 2024 Dr. Jorge Alberto Moreno MD Other Provider Active Star t: December 25, 2024 End: December 25, 2024 Team Status: Inactive Member Role Status Dates Dr. Carrillo Driscoll MD Primary Care Provider Active Start: January 03, 2025 End: January 03, 2025 Dr. Carrillo Driscoll MD Attending Provider Active Start: January 03, 2025 End: January 03, 2025 Dr. Carrillo Driscoll MD Referring Provider Active Start: January 03, 2025 End: January 03, 2025 Team Status: Inactive Member Role Status Dates Dr. Carrillo Driscoll MD Primary Care Provider Active Start: January 17, 2025 End: January 17, 2025 Dr. Jorge Alberto Moreno MD Attending Provider Active Start: January 17, 2025 End: January 17, 2025 Dr. Jorge Alberto Moreno MD Referring Provider Active Start: January 17, 2025 End: January 17, 2025 Team Status: Active Member Role Status Dates Dr. Carrillo Driscoll MD Referring Provider Active Start: January 25, 2025 NOLAN Johnson Attending Provider Active Start: January 25, 2025 Team Status: Inactive Member Role Status Dates Dr. Naveen Talavera MD Attending Provider Active S tart: January 25, 2025 End: January 25, 2025 Team Status: Inactive Member Role Status Dates Dr. Carrillo Driscoll MD Referring Provider Active Start: January 25, 2025 End: January 25, 2025 NOLAN Johnson Attending Provider Active Start: January 25, 2025 End: January 25, 2025 Team Status: Inactive Member Role Status Dates Dr. Primo Alfaro MD Attending Provider Active Start: February 05, 2025 End: February 05, 2025 Dr. Carrillo Driscoll MD Primary Care Provider Active Start: February 05, 2025 End: February 05, 2025 Dr. Carrillo Driscoll MD Referring Provider Active Start: February 05, 2025 End: February 05, 2025 Team Status: Active Member Role Status Dates Dr. Carrillo Driscoll MD Primary Care Provider Active Start: February 11, 2025 Dr. Gerardo Cooley DO Attending Provider Active Start: February 11, 2025 Dr. Gerardo Cooley DO Referring Provider Active Start: February 11, 2025 Team Status: Inactive Member Role Status Dates Dr. Carrillo Driscoll MD Primary Care Provider Active Start: February 13, 2025 End: February 13, 2025 Dr. Primo Alfaro MD Attending Provider Active Start: February 13, 2025 End: February 13, 2025 Dr. Primo Alfaro MD Referring Provider Active Start: February 13, 2025 End: February 13, 2025 Team Status: Active Member Role Status Dates Dr. Carrillo Driscoll MD Primary Care Provider Active Start: February 13, 2025 Dr. Primo Alfaro MD Attending Provider Active Start: February 13, 2025 Dr. Primo Alfaro MD Referring Provider Active Start: February 13, 2025 Dr. Primo Alfaro MD Other Provider Active Star t: February 13, 2025 Team Status: Inactive Member Role Status Dates Dr. Carrillo Driscoll MD Referring Provider Active Start: February 15, 2025 End: February 15, 2025 Dr. Primo Alfaro MD Attending Provider Active Start: February 15, 2025 End: February 15, 2025 Team Status: Inactive Member Role Status Dates Dr. Carrillo Driscoll MD Primary Care Provider Active Start: February 11, 2025 End: February 11, 2025 Dr. Gerardo Cooley DO Attending Provider Active Start: February 11, 2025 End: February 11, 2025 Dr. Gerardo Cooley DO Referring Provider Active Start: February 11, 2025 End: February 11, 2025 Team Status: Inactive Member Role Status Dates Dr. Carrillo Driscoll MD Primary Care Provider Active Start: February 20, 2025 End: February 20, 2025 Dr. Carrillo Driscoll MD Referring Provider Active Start: February 20, 2025 End: February 20, 2025 Dr. Em Hazel MD Attending Provider Active Start: February 20, 2025 End: February 20, 2025 Team Status: Active Member Role Status Dates Dr. Carrillo Driscoll MD Primary Care Provider Active Start: February 20, 2025 Dr. Carrillo Driscoll MD Referring Provider Active Start: February 20, 2025 Dr. Em Hazel MD Attending Provider Active Start: February 20, 2025 Dr. Em Hazel MD Other Provider Active S tart: February 20, 2025 Team Status: Inactive Member Role Status Dates Dr. Primo Alfaro MD Attending Provider Active Start: February 22, 2025 End: February 22, 2025 Dr. Carrillo Driscoll MD Primary Care Provider Active Start: February 22, 2025 End: February 22, 2025 Dr. Carrillo Driscoll MD Referring Provider Active Start: February 22, 2025 End: February 22, 2025 Team Status: Active Member Role Status Dates Dr. Carrillo Driscoll MD Primary Care Provider Active Start: February 26, 2025 Dr. Jorge Alberto Moreno MD Attending Provider Active Start: February 26, 2025 Dr. Jorge Alberto Moreno MD Referring Provider Active Start: February 26, 2025 Team Status: Inactive Member Role Status Dates Dr. Carrillo Driscoll MD Primary Care Provider Active Start: February 27, 2025 End: February 27, 2025 Dr. Carrillo Driscoll MD Referring Provider Active Start: February 27, 2025 End: February 27, 2025 Renetta Oden PIPE WASHER, PIPE WASHER-C Attending Provider Active Start: February 27, 2025 End: February 27, 2025 Team Status: Active Member Role Status Dates Dr. Silvion Collins MD Attending Provider Active S tart: February 27, 2025 Dr. Silvino Collins MD Referring Provider Active S tart: February 27, 2025 Dr. Carrillo Driscoll MD Primary Care Provider Active Start: February 27, 2025 Team Status: Active Member Role/Relationship Status Dates Dr. Carrillo Driscoll MD Primary Care Provider Active Team Status: Inactive Member Role/Relationship Status Dates Dr. Carrillo Driscoll MD Primary Care Provider Active Start: December 25, 2024 End: December 25, 2024 Renettanamrata Oden PIPE WASHER, PIPE WASHER-C Attending Provider Active Start: December 25, 2024 End: December 25, 2024 Renetta Oden PIPE WASHER, PIPE WASHER-C Referring Provider Active Start: December 25, 2024 End: December 25, 2024 Dr. Jorge Alberto Moreno MD Other Provider Active Star t: December 25, 2024 End: December 25, 2024 Team Status: Inactive Member Role/Relationship Status Dates Dr. Carrillo Driscoll MD Primary Care Provider Active Start: January 03, 2025 End: January 03, 2025 Dr. Carrillo Driscoll MD Attending Provider Active Start: January 03, 2025 End: January 03, 2025 Dr. Carrillo Driscoll MD Referring Provider Active Start: January 03, 2025 End: January 03, 2025 Team Status: Inactive Member Role/Relationship Status Dates Dr. Carrillo Driscoll MD Primary Care Provider Active Start: January 17, 2025 End: January 17, 2025 Dr. Jorge Alberto Moreno MD Attending Provider Active Start: January 17, 2025 End: January 17, 2025 Dr. Jorge Alberto Moreno MD Referring Provider Active Start: January 17, 2025 End: January 17, 2025 Team Status: Inactive Member Role/Relationship Status Dates Dr. Carrillo Driscoll MD Referring Provider Active Start: January 25, 2025 End: January 25, 2025 NOLAN Johnson Attending Provider Active Start: January 25, 2025 End: January 25, 2025 Team Status: Inactive Member Role/Relationship Status Dates Dr. Naveen Talavera MD Attending Provider Active S tart: January 25, 2025 End: January 25, 2025 Team Status: Inactive Member Role/Relationship Status Dates Dr. Primo Aflaro MD Attending Provider Active Start: February 05, 2025 End: February 05, 2025 Dr. Carrillo Driscoll MD Primary Care Provider Active Start: February 05, 2025 End: February 05, 2025 Dr. Carrillo Driscoll MD Referring Provider Active Start: February 05, 2025 End: February 05, 2025 Team Status: Inactive Member Role/Relationship Status Dates Dr. Carrillo Driscoll MD Primary Care Provider Active Start: February 11, 2025 End: February 11, 2025 Dr. Gerardo Cooley DO Attending Provider Active Start: February 11, 2025 End: February 11, 2025 Dr. Gerardo Cooley DO Referring Provider Active Start: February 11, 2025 End: February 11, 2025 Team Status: Inactive Member Role/Relationship Status Dates Dr. Carrillo Driscoll MD Primary Care Provider Active Start: February 13, 2025 End: February 13, 2025 Dr. Primo Alfaro MD Attending Provider Active Start: February 13, 2025 End: February 13, 2025 Dr. Primo Alfaro MD Referring Provider Active Start: February 13, 2025 End: February 13, 2025 Team Status: Active Member Role/Relationship Status Dates Dr. Carrillo Driscoll MD Primary Care Provider Active Start: February 13, 2025 Dr. Primo Alfaro MD Attending Provider Active Start: February 13, 2025 Dr. Primo Alfaro MD Referring Provider Active Start: February 13, 2025 Dr. Primo Alfaro MD Other Provider Active Star t: February 13, 2025 Team Status: Inactive Member Role/Relationship Status Dates Dr. Carrillo Driscoll MD Referring Provider Active Start: February 15, 2025 End: February 15, 2025 Dr. Primo Alfaro MD Attending Provider Active Start: February 15, 2025 End: February 15, 2025 Team Status: Inactive Member Role/Relationship Status Dates Dr. Carrillo Driscoll MD Primary Care Provider Active Start: February 20, 2025 End: February 20, 2025 Dr. Carrillo Driscoll MD Referring Provider Active Start: February 20, 2025 End: February 20, 2025 Dr. Em Hazel MD Attending Provider Active Start: February 20, 2025 End: February 20, 2025 Team Status: Active Member Role/Relationship Status Dates Dr. Carrillo Driscoll MD Primary Care Provider Active Start: February 20, 2025 Dr. Carrillo Driscoll MD Referring Provider Active Start: February 20, 2025 Dr. Em Hazel MD Attending Provider Active Start: February 20, 2025 Dr. Em Hazel MD Other Provider Active S tart: February 20, 2025 Team Status: Inactive Member Role/Relationship Status Dates Dr. Primo Alfaro MD Attending Provider Active Start: February 22, 2025 End: February 22, 2025 Dr. Carrillo Driscoll MD Primary Care Provider Active Start: February 22, 2025 End: February 22, 2025 Dr. Carrillo Driscoll MD Referring Provider Active Start: February 22, 2025 End: February 22, 2025 Team Status: Inactive Member Role/Relationship Status Dates Dr. Carrillo Driscoll MD Primary Care Provider Active Start: February 27, 2025 End: February 27, 2025 Dr. Carrillo Driscoll MD Referring Provider Active Start: February 27, 2025 End: February 27, 2025 Renetta Oden PIPE WASHER, PIPE WASHER-C Attending Provider Active Start: February 27, 2025 End: February 27, 2025 Team Status: Active Member Role/Relationship Status Dates Dr. Silvino Collins MD Attending Provider Active S tart: February 27, 2025 Dr. Silvino Collins MD Referring Provider Active S tart: February 27, 2025 Dr. Carrillo Driscoll MD Primary Care Provider Active Start: February 27, 2025 Team Status: Active Member Role/Relationship Status Dates Dr. Carrillo Driscoll MD Primary Care Provider Active Start: April 12, 2025 Dr. Carrillo Driscoll MD Attending Provider Active Start: April 12, 2025 Team Status: Active Member Role/Relationship Status Dates Dr. Carrillo Driscoll MD Primary Care Provider Active Start: April 15, 2025 Dr. Jorge Alberto Moreno MD Attending Provider Active Start: April 15, 2025 Dr. Jorge Alberto Moreno MD Referring Provider Active Start: April 15, 2025 Team Status: Inactive Member Role/Relationship Status Dates Dr. Carrillo Driscoll MD Primary Care Provider Active Start: April 18, 2025 End: April 18, 2025 Dr. Scot Schreiber DO Emergency Provider Activ e Start: April 18, 2025 End: April 18, 2025 Team Status: Inactive Member Role/Relationship Status Dates Dr. Carrillo Driscoll MD Primary Care Provider Active Start: January 03, 2025 End: January 03, 2025 Dr. Carrillo Driscoll MD Attending Provider Active Start: January 03, 2025 End: January 03, 2025 Dr. Carrillo Driscoll MD Referring Provider Active Start: January 03, 2025 End: January 03, 2025 Team Status: Inactive Member Role/Relationship Status Dates Dr. Carrillo Driscoll MD Primary Care Provider Active Start: January 17, 2025 End: January 17, 2025 Dr. Jorge Alberto Moreno MD Attending Provider Active Start: January 17, 2025 End: January 17, 2025 Dr. Jorge Alberto Moreno MD Referring Provider Active Start: January 17, 2025 End: January 17, 2025 Team Status: Inactive Member Role/Relationship Status Dates Dr. Carrillo Driscoll MD Referring Provider Active Start: January 25, 2025 End: January 25, 2025 NOLAN Johnson Attending Provider Active Start: January 25, 2025 End: January 25, 2025 Team Status: Inactive Member Role/Relationship Status Dates Dr. Naveen Talavera MD Attending Provider Active S tart: January 25, 2025 End: January 25, 2025 Team Status: Inactive Member Role/Relationship Status Dates Dr. Primo Alfaro MD Attending Provider Active Start: February 05, 2025 End: February 05, 2025 Dr. Carrillo Driscoll MD Primary Care Provider Active Start: February 05, 2025 End: February 05, 2025 Dr. Carrillo Dricsoll MD Referring Provider Active Start: February 05, 2025 End: February 05, 2025 Team Status: Inactive Member Role/Relationship Status Dates Dr. Carrillo Driscoll MD Primary Care Provider Active Start: February 11, 2025 End: February 11, 2025 Dr. Gerardo Cooley DO Attending Provider Active Start: February 11, 2025 End: February 11, 2025 Dr. Gerardo Cooley DO Referring Provider Active Start: February 11, 2025 End: February 11, 2025 Team Status: Inactive Member Role/Relationship Status Dates Dr. Carrillo Driscoll MD Primary Care Provider Active Start: February 13, 2025 End: February 13, 2025 Dr. Primo Alfaro MD Attending Provider Active Start: February 13, 2025 End: February 13, 2025 Dr. Primo Alfaro MD Referring Provider Active Start: February 13, 2025 End: February 13, 2025 Team Status: Active Member Role/Relationship Status Dates Dr. Carrillo Driscoll MD Primary Care Provider Active Start: February 13, 2025 Dr. Primo Alfaro MD Attending Provider Active Start: February 13, 2025 Dr. Primo Alfaro MD Referring Provider Active Start: February 13, 2025 Dr. Primo Alfaro MD Other Provider Active Star t: February 13, 2025 Team Status: Inactive Member Role/Relationship Status Dates Dr. Carrillo Driscoll MD Referring Provider Active Start: February 15, 2025 End: February 15, 2025 Dr. Primo Alfaro MD Attending Provider Active Start: February 15, 2025 End: February 15, 2025 Team Status: Inactive Member Role/Relationship Status Dates Dr. Carrillo Driscoll MD Primary Care Provider Active Start: February 20, 2025 End: February 20, 2025 Dr. Carrillo Driscoll MD Referring Provider Active Start: February 20, 2025 End: February 20, 2025 Dr. Em Hazel MD Attending Provider Active Start: February 20, 2025 End: February 20, 2025 Team Status: Active Member Role/Relationship Status Dates Dr. Carrillo Driscoll MD Primary Care Provider Active Start: February 20, 2025 Dr. Carrillo Driscoll MD Referring Provider Active Start: February 20, 2025 Dr. Em Hazel MD Attending Provider Active Start: February 20, 2025 Dr. Em Hazel MD Other Provider Active S tart: February 20, 2025 Team Status: Inactive Member Role/Relationship Status Dates Dr. Primo Alfaro MD Attending Provider Active Start: February 22, 2025 End: February 22, 2025 Dr. Carrillo Driscoll MD Primary Care Provider Active Start: February 22, 2025 End: February 22, 2025 Dr. Carrillo Driscoll MD Referring Provider Active Start: February 22, 2025 End: February 22, 2025 Team Status: Inactive Member Role/Relationship Status Dates Dr. Carrillo Driscoll MD Primary Care Provider Active Start: February 27, 2025 End: February 27, 2025 Dr. Carrillo Driscoll MD Referring Provider Active Start: February 27, 2025 End: February 27, 2025 Rneetta Oden PIPE WASHER, PIPE WASHER-C Attending Provider Active Start: February 27, 2025 End: February 27, 2025 Team Status: Active Member Role/Relationship Status Dates Dr. Silvino Collins MD Attending Provider Active S tart: February 27, 2025 Dr. Silvino Collins MD Referring Provider Active S tart: February 27, 2025 Dr. Carrillo Driscoll MD Primary Care Provider Active Start: February 27, 2025 Team Status: Active Member Role/Relationship Status Dates Dr. Carrillo Driscoll MD Primary Care Provider Active Start: April 12, 2025 Dr. Carrillo Driscoll MD Attending Provider Active Start: April 12, 2025 Team Status: Inactive Member Role/Relationship Status Dates Dr. Carrillo Driscoll MD Primary Care Provider Active Start: April 18, 2025 End: April 18, 2025 Dr. Scot Schreiber DO Attending Provider Activ e Start: April 18, 2025 End: April 18, 2025 Dr. Scot Schreiber DO Emergency Provider Activ e Start: April 18, 2025 End: April 18, 2025 Team Status: Inactive Member Role/Relationship Status Dates Dr. Carrillo Driscoll MD Primary Care Provider Active Start: April 23, 2025 End: April 23, 2025 Dr. Carrillo Driscoll MD Attending Provider Active Start: April 23, 2025 End: April 23, 2025 Dr. Carrillo Driscoll MD Referring Provider Active Start: April 23, 2025 End: April 23, 2025 Team Status: Active Member Role/Relationship Status Dates Dr. Carrillo Driscoll MD Primary Care Provider Active Start: April 23, 2025 Dr. Jorge Alberto Moreno MD Attending Provider Active Start: April 23, 2025 Dr. Jorge Alberto Moreno MD Referring Provider Active Start: April 23, 2025 Team Status: Active Member Role/Relationship Status Dates Dr. Carrillo Driscoll MD Primary Care Provider Active Start: April 25, 2025 Dr. Carrillo Driscoll MD Attending Provider Active Start: April 25, 2025 Dr. Carrillo Driscoll MD Referring Provider Active Start: April 25, 2025 Team Status: Active Member Role/Relationship Status Dates Dr. Carrillo Dirscoll MD Primary Care Provider Active Start: April 23, 2025 Dr. Carrillo Driscoll MD Referring Provider Active Start: April 23, 2025 Dr. Edy Mercedes MD Attending Provider Active Start: April 23, 2025 Team Status: Inactive Member Role/Relationship Status Dates Dr. Carrillo Driscoll MD Primary Care Provider Active Start: April 25, 2025 End: April 25, 2025 Dr. Carrillo Driscoll MD Attending Provider Active Start: April 25, 2025 End: April 25, 2025 Dr. Carrillo Driscoll MD Referring Provider Active Start: April 25, 2025 End: April 25, 2025 Team Status: Active Member Role/Relationship Status Dates Dr. Carrillo Driscoll MD Primary Care Provider Active Start: April 30, 2025 Dr. Jorge Alberto Moreno MD Attending Provider Active Start: April 30, 2025 Dr. Jorge Alberto Moreno MD Referring Provider Active Start: April 30, 2025 Team Status: Active Member Role/Relationship Status Dates Dr. Carrillo Driscoll MD Primary Care Provider Active Start: May 01, 2025 Dr. Carrillo Driscoll MD Attending Provider Active Start: May 01, 2025 Dr. Carrillo Driscoll MD Referring Provider Active Start: May 01, 2025 INFORMATION SOURCE (unrecogn ized section and content) DATE CREATED AUTHOR 05/01/2025 [facility] FOR RECORDS PERTAINING TO PATIENTS WHO ARE [...] BE BASED ON THE PRIMARY CLINICAL RECORDS. [facility] [employer] [facility]. provides no warranty or guarantee of the accuracy or completeness of information in this document.
== END | disposition home or self-care (01) ==
LOC: CVS 13:54
PROVIDERS: PCP Family Medicine Geriatric Medicine; Referring Provider Family Medicine Geriatric Medicine; Visit Provider Family Medicine Geriatric Medicine
DX: R06.02 Shortness of breath (principal); M79.2 Neuralgia and neuritis, unspecified; R20.0 Anesthesia of skin; R29.898 Other symptoms and signs involving the musculoskeletal system
CPT/HCPCS: 93306

== ENCOUNTER 2025-05-06 10:00 | Outpatient (RCR) | payer MEDICAID, SELFPAY ==
--- NOTE | 2025-02-26 11:27 | HP.PTEVAL ---
Patient's Visit Information Visit Information Visit Information: FEDE HERZOG is a 54 year old F referred to Physical Therapy by Dr. Jorge Alberto Moreno MD with a diagnosis of BACK AND NECK PAIN. Date of Evaluation: 02/26/25 Physical Therapist: Ariadna Yepez PT, Cert MDT Visit Plan Frequency: 2x /Week Duration: 4 Weeks Plan: AQUATIC THERAPY FOR PAIN RELIEF, POSTURE CORRECTION/STRENGTHENING, INSTRUCTION IN APPROPRIATE BODY MECHANICS AND ACTIVITY MODIFICATIONS. DLS STARTING WITH A NEUTRAL SPINE PROGRESSING ROM TOLERATED. YOHANA LE ROM, STRETCHING AND STRENGTHENING. HEP INSTRUCTION. 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 Disability: NO Present symptoms: LOW BACK PAIN L>R, YOHANA NUMBNESS, WEAKNESS AND PINS AND NEEDLES. ALSO PAIN IN R HIP AND THIGH. PATIENTS CHIEF COMPLAINT IS LOW BACK AND LEG PAIN. SHE ALSO HAS NECK AND THORACIC PAIN AND WOULD LIKE TO ADDRESS THAT TOO AFTER TRIAL OF THERAPY FOR BACK AND LEGS. Present since: ABOUT 5 YEARS AGO Pain Scale: WORST 8/10, LEAST 4/10 Currently: 8/10 Is it getting better, worse or staying the same: STAYING THE SAME Commenced as a result of: NO APPARENT REASON OTHER THAN FALLING OFF A HORSE Symptoms at onset: YOHANA LOW BACK AND R THIGH PAIN. Worse: WALKING, LIFTING, BENDING, STOOPING, LYING DOWN, *STEPS, HEAT, Better: LAYING IN THE RECLINER, PAIN MEDICATION, ICE Disturbed sleep: YES - SLEEPING IN RECLINER FOR YEARS Previous history/Previous treatment: PHYSICAL THERAPY X ONE EPISODE ~DECEMBER 2024 X ~ 9 VISITS RESULTING IN INCREASED LOW BACK PAIN, CHIROPRACTIC X ~ 9 TREATMENTS WITHOUT BENEFIT. LUMBAR FUSION AND MICRO DISCECTOMY. MICRODISCECTOMY GOT INFECTED. ALSO HAD A CYST TAKEN [place] [facility] A TEENAGER. Treatment this episode: PAIN MEDICINE, MUSCLE RELAXERS Coughing/sneezing/straining: NO EFFECT Gait: TIME AND DISTANCE LIMITED. I DON'T STRIDE RIGHT. PATIENT REPORTS SOME DAYS SHE IS STRAIGHTER THAN OTHERS. Bowel or Bladder Dysfunction: NO Accidents: FELL OFF HORSE 5 YEARS AGO - NO FX'S Unexplained weight loss: NO Imagin LUMBAR X-RAY: IMPRESSION: Prior fusion at the L4-L5 level. This space narrowing at the L4-L5 level and L5-S1 levels. PMH/Recent major surgery: THORACIC ATROPHY. HNP THORACIC AND CERVICAL SPINE. COMPRESSION FX IN T/S. YOHANA SHLD AND ELBOW SX'S. YOHANA THUMB SX'S. R THUMB SX 2 WKS AGO. ABDOMINAL SURGERIES. BREAST CANCER DECEMBER 2023 TREATED WITH SX, RADIATION AND CHEMO. Objective Objective: Sitting/Standing Posture: SCOLIOTIC APPEARING WITH R SHIFT AND INCREASED TRUNK FLEXION. Active Correction of posture: UNABLE TO CORRECT AND ATTEMPS INCREASE PAIN Other Observations: THIS PATIENT AMBULATES INDEP'LY INTO PT WITH ANTALGIC GAIT PATTERN, POSTURE NOTED ABOVE, DECREASED CADANCE, DECREASED YOHANA STRIDE LENGTH BUT NO LOB AND NO AD'S. SHE IS ABLE TO TRANSFER INDEP'LY FROM SIT TO STAND WITH HANDS ON KNEES BUT IT IS DIFFICULTY AND GUARDED. GAIT IS GUARDED. Sensory deficit: INTACT. ROM deficit: YOHANA LE HS AND CALF TIGHTNESS. Motor deficit: YOHANA HIPS 4/5, KNEES 5/5, ANKLES 5/5 Dural Signs: POSITIVE YOHANA LE'S. Lumbar mvmt loss: flex - YONI ext - YONI R SG - YONI L SG - YONI PATIENT C/O INCREASED LBP WITH LUMBAR ROM TESTING ALL PLANES. Core strength: FAIR Palpation: INCREASED PARASPINAL MUSCLE TONE THROUGHOUT Balance/Special Test Scores Oswestry Low Back Score: 30 Goals Goal 1:: DECREASE C/O LOW BACK AND YOHANA LE SX'S BY AT LEAST 25% TO EASE ADL'S. Goal Time Frame: 2-4 Weeks Goal 2:: IMPROVE SITTING, STANDING, WALKING, RECREATIONAL AND WORK FUNCTION WITH AT LEAST 5 POINT IMPROVEMENT IN BACK OSWESTRY SCORE. Goal Time Frame: 2-4 Weeks Goal 3:: INSTRUCT IN PROPHYLAXIS Goal Time Frame: 2-4 Weeks Goal 4:: NECK ASSESSMENT Goal Time Frame: 2-4 Weeks Rehabilitation Potential Physical Therapy Diagnosis: CORE AND LE WEAKNESS AND STIFFNESS WITH GAIT DIFFICULTY Rehabilitation Potential: Fair Anticipated Interventions Patient/Client Instruction: Educate patient on: Condition, Plan of Care and Risk Factors For the Purpose of:: To improve self management Therapeutic Exercise to Include: Strength training, Body mechanics, Postural training, Flexibilty training, Neuromotor development, In an aquatic setting and Dynamic Lumbar Stabilization For the Purpose of:: To decrease pain, To improve muscle performance and motor function, To increase tolerance to activity/condition/position, To improve ability of physical actions for home/community/work/leisure, To improve gait and locomotor functions, To increase flexibility/ROM and To improve self management Text: Thank you for the opportunity to evaluate your patient. For Medicare and Medicare HMO plans, please review the plan of care and approve it. It will need to be FAXED BACK to us at [phone] for Medicare purposes. For Medicare only, by signing this I certify the plan of care. Please let me know if there are questions or concerns regarding this plan of care. Physician Signature: Date:
--- NOTE | 2025-05-06 10:55 | HP.PTDCSUM_ITS ---
Discharge Summary D/C summary: It has been my pleasure to treat FEDE HERZOG referred by Dr. Jorge Alberto Moreno MD, with the diagnosis of BACK AND NECK PAIN for a total of 12 visit(s). Discharge Date: 05/06/25 Please see the following information for a summary of their discharge status. Subjective Subjective: PATIENT STATES I CAN TELL WHEN I'M DRIVING AND TRYING TO LOOK BEHIND ME THAT MY NECK IS BETTER. I HAVE THINGS I CAN DO TO GIVE MY BACK AT LEAST TEMPORARY RELIEF NOW. PATIENT REPORTS THE NECK EX'S STILL FEEL GOOD BUT GOT UP LATER THAN EXPECTED AND HASN'T HAD A CHANCE TO DO THEM YET TODAY. PATIENT REPORTS SHE HAS A LITTLE BIT OF A HEADACHE AND SOME NECK PAIN THIS MORNING. REPORTS NEW SLUMP EX STARTED LAST VISIT FEELS REALLY GOOD BUT THE RELIEF IS TEMPORARY. SHE STATES THAT OVER ALL HER HEAD, NECK AND ARM ROM, PAIN, NUMBNESS AND TINGLING HAVE IMPROVED SINCE STARTING THE EX'S BUT HER MID, LOW BACK AND LE SX'S ARE THE SAME. Pain thoracic: Pain Intensity (Out of 10): 5 LB: Pain Intensity (Out of 10): Unrated B FEET: Pain Intensity (Out of 10): Unrated NECK: Pain Intensity (Out of 10): 4 HEADACHE: Pain Intensity (Out of 10): 3 HANDS: Pain Intensity (Out of 10): 0 Overall Improvement % Improvement: 15 Objective Objective/Function: PATIENT WAS SEEN TODAY FOR RE-ASSESSMENT OF PROGRESS TOWARD THE SET NECK/THORACIC PT GOALS AND THE NEED FOR FURTHER PHYSICAL THERAPY VS READINESS FOR DISCHARGE. PATIENT DEMONSTRATED/COMMUNICATED A GOOD UNDERSTANDING OF HEP AND HOME INSTRUCTIONS GIVEN TODAY. HER NECK AND UE ROM AND STRENGTH HAS IMPROVED ALONG WITH HER C/O HEAD, NECK AND UE C/O'S OF PAIN BUT SHE ONLY GETS TEMPORARY RELIEF OF MID BACK PAIN AND HER MID BACK PAIN IS STILL A CHIEF COMPLAINT. SHE IS ALSO DISAPPOINTED IN HER LOW BACK AND LE PAIN AND FUNCTION. UPON EXAM TODAY: ROM deficit: L ARM ELEVATION TO 151 DEG. R TO 155 DEG. 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 R SHLD 3-/5, ELBOW 4/5. L SHLD 3-/5, ELBOW 4/5. Cervical Mvmt Loss: Flex: MIN Pro: NIL Ext: MIN Ret: MOD RSB: MOD LSB: MOD R Rot: MIN L Rot: MIN PATIENT C/O YOHANA NECK PAIN/STIFFNESS WITH NECK ROM TESTING ALL PLANES L>R. Thoracic Mvmt Loss: R Rot - MOD L Rot - MOD INCREASED C/O MID BACK PAIN WITH B ROTATION TESTING. Postural Strength: Fair Palpation: INCREASED PARASPINAL MUSCLE TONE THROUGHOUT Goals Goal 1:: DECREASE C/O LOW BACK AND YOHANA LE SX'S BY AT LEAST 25% TO EASE ADL'S. Goal Progress: Not Progressing Goal 2:: IMPROVE SITTING, STANDING, WALKING, RECREATIONAL AND WORK FUNCTION WITH AT LEAST 5 POINT IMPROVEMENT IN BACK OSWESTRY SCORE. Goal Progress: Not Progressing Goal 3:: INSTRUCT IN PROPHYLAXIS - NOT MET FOR BACK AND NOW GOAL FOR NECK. Goal Progress: Goal Met Goal 4:: NECK ASSESSMENT Goal Progress: Goal Met Goal 5:: DECREASE C/O NECK AND UE SX'S BY AT LEAST 25% Goal Progress: Progressing Goal 6:: IMPROVE LIFTING, READING, SLEEP, WORK, DRIVING AND RECREATIONAL FUNCTION WITH AT LEAST A 5 POINT IMPROVEMENT ON NECK OSWESTRY QUESTIONNAIRE. Goal Progress: Goal Met Plan Plan: D/C TO FOLLOW UP WITH PAIN MGMT. PATIENT AGREEABLE. D/C Information d/c sentence: If there are questions or concerns regarding this patient's physical therapy, please feel free to call me at [phone]. Thank you for the referral of this patient. Sincerely, Araidna Yepez, PT, Cert MDT Balance/Gait/Functional tests Balance/Special Test Scores Oswestry Low Back Score: 27 Oswestry Neck Score: 21 Improvement % Improvement: 15
== END 2025-05-06 19:00 | disposition home or self-care (01) ==
LOC: PT 10:00
PROVIDERS: PCP Family Medicine Geriatric Medicine; Referring Provider Anesthesiology Pain Medicine; Visit Provider Anesthesiology Pain Medicine
DX: M54.2 Cervicalgia (principal)
CPT/HCPCS: 97113; 97162; 97530

== ENCOUNTER → 2025-05-07 | Outpatient (CLI) | payer MEDICAID, SELFPAY ==
--- OUTSIDE RECORDS SUMMARY | 2025-05-07 07:06 | XMS RPT_ITS | CCD ---
Author Organization [facility] Care Team Providers Care Gristmiller Name Role Phone Edy Monahan Unavailable Weeks, [...] Provider Dr. Silvino Toscano Attending Provider Akshat CONFERENCE TRANSLATOR, CONFERENCE TRANSLATOR-C Renetta Attending Provider Americo, Dr. Carrillo Das Primary Care Provider [phone] [place], Dr. Carrillo Das Referring Provider Dr. Silvino Toscano Attending Provider Akshat CONFERENCE TRANSLATOR, CONFERENCE TRANSLATOR-C Renetta Attending Provider Akshat CONFERENCE TRANSLATOR, CONFERENCE TRANSLATOR-C Renetta Referring Provider Americo NEVAREZ, Dr. Carrillo Das Primary Care Provider [place] , Dr. Carrillo Attending Provider [place], Dr. Carrillo Referring Provider Americo NEVAREZ, Dr. Carrillo Das Referring Provider Akshat CONFERENCE TRANSLATOR-C, Renetta Attending Provider Yasemin NEVAREZ, Dr. Strickland Attending Provider Krys CONFERENCE TRANSLATOR-C, Miroslava Attending Provider Krys CONFERENCE TRANSLATOR-C, Miroslava Referring Provider Karina NEVAREZ, Dr. Dubois Attending Provider Karina NEVAREZ, Dr. Dubois Referring Provider 1([facility])[phone] Akshat CONFERENCE TRANSLATOR-C, Renetta Referring Provider Americo NEVAREZ, Dr. Carrillo Das Primary Care Provider 1([facility] )[phone] [place] , Dr. Carrillo Attending Provider 1([facility])[phone] Yasemin NEVAREZ, Dr. Strickland Referring Provider Josh NEVAREZ, Dr. Azul Other Provider 1([facility])[phone] Americo NEVAREZ, Dr. Carrillo Das Primary Care Provider 1([facility] )[phone] Americo NEVAREZ, Dr. Carrillo Das Referring Provider 1([facility])[phone] Akshat CONFERENCE TRANSLATOR-C, Renetta Attending Provider Yasemin NEVAREZ, Dr. Strickland Attending Provider 1([facility] )[phone] Josh NEVAREZ, Dr. Azul Other Provider 1([facility])[phone] Americo NEVAREZ, Dr. Carrillo Das Attending Provider Josh NEVAREZ, Dr. Azul Attending Provider Josh NEVAREZ, Dr. Azul Referring Provider Scott TRUONG-CParisa Attending Provider Ilan [...] Dr. Carrillo Das Primary Care Provider [phone] Akshat CONFERENCE TRANSLATOR-C, Renetta Attending Provider Akshat CONFERENCE TRANSLATOR-C, Renetta Referring Provider Americo NEVAREZ, Dr. Carrillo Das Referring Provider Yasemin NEVAREZ, Dr. Strickland [facility] [place], Dr. Ellison Emergency Provider Americo NEVAREZ, Dr. Carrillo Das Primary Care Provider Akshat CONFERENCE TRANSLATOR-C, Renetta [facility]ending [facility] [place]. Ellison Attending Provider Daren NEVAREZ, Dr. Snow Attending Provider Americo, Carrillo Chi Primary Care Unavailable Robotham, Em Attending Unavailable Americo, Carrillo Chi Referring Unavailable Americo, Carrillo Chi Primary Care Unavailable Primo Alfaro Attending Unavailable Primo Alfaro Referring Unavailable Americo, Carrillo Chi Primary Care Unavailable Lenora Gerardo Referring Unavailable LenoraGerardo Attending Unavailable Americo, Carrillo Chi Primary Care Unavailable Basali, Ayman Attending Unavailable Basali, Ayman Referring Unavailable Akshat CONFERENCE TRANSLATOR, Renetta Attending Unavailable Americo, Carrillo Chi Primary Care Unavailable Americo, Carrillo Chi Referring Unavailable Americo, Carrillo Chi Referring Unavailable Americo, Carrillo Chi Primary Care Unavailable Akshat CONFERENCE TRANSLATOR, Renetta Attending Unavailable Americo, Carrillo Chi Primary Care Unavailable Lenora, Gerardo Attending Unavailable Americo, Carrillo Chi Referring Unavailable Lenora, Gerardo Attending Unavailable Lenora, Gerardo Referring Unavailable Americo, Carrillo Chi Primary Care Unavailable Americo, Carrillo Chi Primary Care Unavailable Robotham, Em Attending Unavailable Robotham, Em Referring Unavailable Americo, Carrillo Chi Primary Care Unavailable Akshat CONFERENCE TRANSLATOR, Renetta Referring Unavailable Akshat CONFERENCE TRANSLATOR, Renetta Attending Unavailable BasaliJorge Alberto Consulting Unavailable Americo, Carrillo Chi Primary Care Unavailable Scot Schreiber Attending Unavailabl e Americo, Carrillo Chi Primary Care Unavailable Akshat CONFERENCE TRANSLATOR, Renetta Referring Unavailable Akshat CONFERENCE TRANSLATOR, Renetta Attending Unavailable Americo, Carrillo Chi Primary Care Unavailable Miroslava Marcano Attending Unavailable Miroslava Marcano Referring Unavailable Americo, Carrillo Chi Primary Care Unavailable Jorge Alberto Moreno Attending Unavailable Basali Aywilliam Referring Unavailable Americo, Carrillo Chi Primary Care Unavailable Akshat CONFERENCE TRANSLATOR, Renetta Referring Unavailable Akshat CONFERENCE TRANSLATOR, Renetta Attending Unavailable Americo, Carrillo Chi Referring Unavailable Americo, Carrillo Chi Primary Care Unavailable Americo, Carrillo Chi Attending Unavailable Gerardo Cooley Referring Unavailable LenoraGerardo neil Attending Unavailable Americo, Carrillo Chi Primary Care Unavailable Americo, Carrillo Chi Primary Care Unavailable Americo, Carrillo Chi Attending Unavailable Gerardo Cooley Attending Unavailable Americo, Carrillo Chi Primary Care Unavailable Americo, Carrillo Chi Referring Unavailable Americo, Carrillo Chi Referring Unavailable Americo, Carrillo Chi Primary Care Unavailable Americo, Carrillo Chi Attending Unavailable Americo, Carrillo Chi Primary Care Unavailable Akshat CONFERENCE TRANSLATOR, Renetta Attending Unavailable Americo, Carrillo Chi Referring Unavailable Americo, Carrillo Chi Referring Unavailable Americo, Carrillo Chi Primary Care Unavailable Akshat CONFERENCE TRANSLATOR, Renetta Attending Unavailable Americo, Carrillo Chi Referring Unavailable Americo, Carrillo Chi Primary Care Unavailable Primo Alfaro Attending Unavailable Americo, Carrillo Chi Referring Unavailable Primo Alfaro Attending Unavailable Americo, Carrillo Chi Referring Unavailable Americo, Carrillo Chi Primary Care Unavailable Primo Alfaro Attending Unavailable Naveen Talavera Attending Unavailable Americo, Carrillo Chi Referring Unavailable Parisa Chavez Attending Unavailable Americo, Carrillo Chi Primary Care Unavailable Akshat CONFERENCE TRANSLATOR, Renetta Attending Unavailable Maerico, Carrillo Chi Referring Unavailable Akshat CONFERENCE TRANSLATOR, Renetta Attending Unavailable Americo, Carrillo Chi Primary Care Unavailable Americo, Carrillo Chi Referring Unavailable Barry Arrington Attending Unavailable Americo, Carrillo Chi Primary Care Unavailable Americo, Carrillo Chi Referring Unavailable Americo, Carrillo Chi Primary Care Unavailable Miroslava Marcano Attending Unavailable Americo, Carrillo Chi Referring Unavailable Americo, Carrillo Chi Primary Care Unavailable Em Hazel Attending Unavailable Americo, Carrillo Chi Referring Unavailable Americo, Carrillo Chi Referring Unavailable Americo, Carrillo Chi Primary Care Unavailable Akshat CONFERENCE TRANSLATOR, Renetta Attending Unavailable Americo, Carrillo Chi Primary Care Unavailable Naveen Talavera Attending Unavailable Americo, Carrillo Chi Referring Unavailable Americo, Carrillo Chi Primary Care Unavailable Edy Mercedes Attending Unavailable Americo, Carrillo Chi Primary Care Unavailable SiskaPrimo Attending Unavailable Siska, Primo Referring Unavailable Siska, Primo Consulting Unavailable Americo, Carrillo Chi Referring Unavailable Americo, Carrillo Chi Primary Care Unavailable Robotham, Em Consulting Unavailable Robotham, Em Attending Unavailable Lenora, Gerardo Referring Unavailable Lenora Gerardo Attending Unavailable Americo, Carrillo Chi Primary Care Unavailable LenoraMario neile Attending Unavailable Americo, Carrillo Chi Primary Care Unavailable Lenora, Gerardo Referring Unavailable Lenora, Gerardo Attending Unavailable Americo, Carrillo Chi Primary Care Unavailable Lenora, Gerrado Referring Unavailable Lenora Gerardo Attending Unavailable Americo, Carrillo Chi Primary Care Unavailable Lenora, Gerardo Referring Unavailable Lenora, Gerardo Attending Unavailable Americo, Carrillo Chi Primary Care Unavailable LenoraaMrioe Attending Unavailable Lenora, Gerardo Referring Unavailable Americo, Carrillo Chi Primary Care Unavailable Akshat CONFERENCE TRANSLATOR, Renetta Attending Unavailable Americo, Carrillo Chi Primary Care Unavailable Americo, Carrillo Chi Referring Unavailable Americo, Carrillo Chi Primary Care Unavailable Akshat CONFERENCE TRANSLATOR, Renetta Attending Unavailable Akshat CONFERENCE TRANSLATOR, Renetta Referring Unavailable Americo, Carrillo Chi Primary Care Unavailable Robotham, Em Attending Unavailable Americo, Carrillo Chi Referring Unavailable Americo, Carrillo Chi Referring Unavailable Americo, Carrillo Chi Primary Care Unavailable Americo, Carrillo Chi Attending Unavailable Americo, Carrillo Chi Primary Care Unavailable Jorge Alberto Moreno Attending Unavailable BasaliJorge Alberto Referring Unavailable Americo, Carrillo Chi Referring Unavailable Americo, Carrillo Chi Primary Care Unavailable Americo, Carrillo Chi Attending Unavailable Americo, Carrillo Chi Referring Unavailable Americo, Carrillo Chi Primary Care Unavailable Americo, Carrillo Chi Attending Unavailable Lenora, Gerardo Referring Unavailable Lenora, Gerardo Attending Unavailable Americo, Carrillo Chi Primary Care Unavailable Americo, Carrillo Chi Referring Unavailable Americo, Carrillo Chi Primary Care Unavailable Americo, Carrillo Chi Attending Unavailable Americo, Carrillo Chi Primary Care Unavailable Silvino Collins Attending Unavailable Silvino Collins Referring Unavailable Allergies Allergy Classification Reported Allergen(s) Allergy Type Date of Onset Reaction(s) Facility (12 sources) cephalexin drug allergy 09-14-2010 [facility] Work Phone: (20 sources) Cephalexin Drug Allergy 07-16-2022 Rash [facility] (1 source) Cephalexin Drug Allergy 04-18-2025 [facility] Repository Medications Current Medications Medication Drug Class(es) [...] 2 TABLET PO EVERY 6 HOURS NEEDED March 09, 2017 12:00am January 05, 2018 1:06pm Start: 04-02-2013 End: 11-07-2015 VICODIN TABS as needed pain HYDROCODONE-ACETAMINOPHEN TABS [id number] Edy Monahan Start: 04-02-2013 VICODIN TABS a s needed pain HYDROCODONE-ACETAMINOPHEN TABS [id number] Susan Vo MD anastrozole 1 mg oral tablet (17 sources) Aromatase Inhibitor Start: 08-20-2024 take 1 [...] 11:15am calcium carbonate 1500 mg oral tablet (16 sources) Start: 12-04-2024 take 1 tablet by [...] th once daily Multivitamin With Folic Acid Active 1 TABLET PO DAILY July 19, 2016 1:00am Multivitamin With Folic Acid 1 TABLET tablet (17 sources) Start: 07-19-2016 take 1 tablet by mouth once daily Multivitamin With Folic Acid 1 TABLET tablet Active 1 {tbl} PO DAILY July 19, 2016 1:00am Check with primary doctor Start: 07-19-2016 take 1 tablet by manuel th once daily Multivitamin With Folic Acid 1 TABLET tablet Active 1 {tbl} PO DAILY July 19, 2016 1:00am oxyCODONE hydrochloride 5 mg oral tablet (10 sources) Opioid Agonist Start: 02-13-2025 take 1 [...] NEEDED as needed for Pain 12 3 0 July 16, 2022 October 12, 2023 3:15pm Contusion of back Contusion of unspecified back wall of thorax, initial encounter Start: 07-16-2022 End: 10-12-2023 take 1 tablet by mouth every six hours as needed Oxycodone-Acetaminophen Discontinued 1 TABLET PO EVERY 6 HOURS NEEDED 12 July 16, 2022 October 12, 2023 3:15pm Start: 11-07-2015 PERCOCET 5-325 MG TABS OXYCODONE-ACETAMINOPHEN [id number] Edy Monahan Start: 11-07-2015 PERCOCET 5-325 MG TABS OXYCODONE-ACETAMINOPHEN [id number] Edy Monahan celecoxib 200 mg oral capsule [...] 500 MG TABS Twice daily CIPROFLOXACIN HCL [id number] Abby Pearl citalopram 20 mg oral tablet (20 sources) Serotonin Reuptake Inhibitor End: 04-02-2013 CELEXA 20 MG TABS 1 at bedtime CITALOPRAM HYDROBROMIDE [id number] Joselo Mclean MD cyclobenzaprine hydrochloride 10 mg [...] by mouth three times daily CYCLOBENZAPRINE HCL [id number] Susan Vo MD dexamethasone 4 mg oral tablet (17 sources) Corticosteroid Start: 04-11-2024 End: 07-10-2024 take [...] DAILY NEEDED as needed for Constipation 10 0 March 09, 2017 12:00am January 05, 2018 1:06pm doxycycline hyclate 100 mg oral tablet (20 sources) Tetracycline-class Drug End: 08-30-2011 take 1 tablet by mouth twice daily DOXYCYCLINE HYCLATE 100 MG TABS One tablet by mouth twice daily DOXYCYCLINE HYCLATE [id number] Joselo Mclean MD gabapentin 300 mg oral tablet (20 sources) Anti-epileptic Agent End: 11-07-2015 take 1 tablet by mouth three times daily NEURONTIN 300 MG CAPS One tablet by mouth three times daily GABAPENTIN [id number] Edy Monahan End: 11-07-2015 take 1 tablet by mouth three times daily NEURONTIN 300 MG CAPS One tablet by mouth three times daily GABAPENTIN [id number] Susan Vo MD imipramine hydrochloride 25 mg oral tablet (20 sources) Tricyclic Antidepressant End: 08-30-2011 IMIPRAMINE HCL 25 MG TABS 1-2 tabs at bedtime IMIPRAMINE HCL [id number] Joselo Mclean MD End: 04-02-2013 take 1 tablet by mouth at bedtime TOFRANIL 10 MG TABS One tablet by mouth at bedtime. IMIPRAMINE HCL [id number] Susan Vo MD lidocaine 25 mg/ml / prilocaine 25 mg/ml topical cream (17 sources) Antiarrhythmic, Amide Local Anesthetic Start: 04-11-2024 [...] pack Discontinued 0 PO per package directions 21 0 September 09, 2020 1:00am October 28, 2020 [...] 4:17pm ondansetron 8 mg disintegrating oral tablet (17 sources) Serotonin-3 Receptor Antagonist Start: 04-11-2024 End: [...] TABS Three times a day PHENAZOPYRIDINE HCL [id number] Abby Pearl microencapsulated potassium chloride 20 meq extended release oral tablet (17 sources) Start: 04-26-2024 End: 08-20-2024 take 1 [...] 2022 8:03am prochlorperazine 10 mg oral tablet (17 sources) Phenothiazine Start: 04-11-2024 End: 08-20-2024 take [...] 3 cap s at bedtime PROGESTERONE MICRONIZED [id number] Edy Monahan promethazine hydrochloride 25 mg oral tablet (20 sources) Phenothiazine Start: 03-09-2017 End: 01-05-2018 take 1 tablet by mouth every four hours as needed for nausea Promethazine 25 MG tablet Discontinued 25 mg PO EVERY 4 HOURS NEEDED as needed for Nausea 10 0 March 09, 2017 12:00am January 05, 2018 1:06pm Sod Sulf-Pot Chloride-Mag Sulf (15 sources) Start: 01-02-2025 End: 02-07-2025 take 1.479 [...] po twice daily for 7 d SULFAMETHOXAZOLE-TRIMETHOPRIM [id number] Susan Vo MD Start: 04-02-2013 take 1 tablet by manuel th twice daily, then take 2 tablets by mouth twice daily BACTRIM DS 800-160 MG TABS one po twice daily for small abscess but if increase, raise dose to 2 po twice daily for 7 d SULFAMETHOXAZOLE-TRIMETHOPRIM [id number] Susan Vo MD Start: 04-02-2013 End: 11-07-2015 take 1 tablet by mouth twice daily, then take 2 tablets by mouth twice daily BACTRIM DS 800-160 MG TABS one po twice daily for small abscess but if increase, raise dose to 2 po twice daily for 7 d SULFAMETHOXAZOLE-TRIMETHOPRIM [id number] Edy Monahan Start: 09-02-2011 End: 09-24-2011 take 1 tablet by mouth twice daily BACTRIM DS TABS one po twice daily for 7 -10 days if symptoms recur SULFAMETHOXAZOLE-TRIMETHOPRIM TABS [id number] Abby Pearl Start: 09-02-2011 take 1 tablet by manuel th twice daily BACTRIM DS TABS one po twice daily for 7 -10 days if symptoms recur SULFAMETHOXAZOLE-TRIMETHOPRIM TABS [id number] Susan Vo MD End: 08-30-2011 BACTRIM TABS 1 tab twice isac ly SULFAMETHOXAZOLE-TRIMETHOPRIM TABS [id number] Joselo Mclean MD End: 08-30-2011 BACTRIM TABS 1 tab twice isac ly SULFAMETHOXAZOLE-TRIMETHOPRIM TABS [id number] Joselo Mclean MD End: 04-02-2013 take 1 tablet by mouth twice daily BACTRIM DS 800-160 MG TABS One tablet by mouth twice daily SULFAMETHOXAZOLE-TRIMETHOPRIM [id number] Susan Vo MD BACTRIM TABS 1 t ab twice daily SULFAMETHOXAZOLE-TRIMETHOPRIM TABS [id number] Joselo Mclean MD take 1 tablet by manuel th twice daily BACTRIM DS 800-160 MG TABS One tablet by mouth twice daily SULFAMETHOXAZOLE-TRIMETHOPRIM [id number] Susan Vo MD CHOLECALCIFEROL (12 sources) Start: 11-07-2015 VITAMIN D 1000 UNIT TABS CHOLECALCIFEROL [id number] Edy Monahan Problems Active Problems Problem Classification Problem Date Documented Da te Episodic/Chronic Cancer of breast (20 sources) Malignant tumor of breast ; Translations: [Malignant neoplasm of unspecified site of right female breast] Onset: 08-08-2024 03-26-2024 Chronic Comment on above: Right breast Lobular carcinoma-clinically stage I (cT1 N0 M0), tumor size 8mm, grade 2, ER >95%, MO >95%, Her2 FISH negative.S/P lumpectomy on 03/13/2024, Pathology showed Invasive Lobular carcinoma, tumor size 7mm, margins negative, grade 2. [place] axillary node 1 negative. She does not [...] 11-19-2024 Episodic Diseases of mouth; excluding dental (17 sources) Inflammatory disease of mucous membrane; Translations: [Oral mucositis (ulcerative), unspecified] 04-26-2024 Episodic Disorders of lipid metabolism (1 source) Hyperlipidemia, unspecified; Translations: [Hyperlipidemia, unspecified] Onset: 05-03-2025 Chronic Endometriosis (20 sources) Endometriosis (clinical); Translations: [Endometriosis, unspecified] 02-12-2020 Chronic Essential hypertension (1 source) Essential (primary) hypertension; Translations: [Essential (primary) hypertension] Onset: 01-08-2025 Chronic Fluid and electrolyte disorders (17 sources) Hypokalemia; Translations: [Hypokalemia] 04-26-2024 Episodic Genitourinary symptoms and ill-defined conditions (18 sources) Urinary incontinence; Translations: [Unspecified urinary incontinence] Onset: 06-28-2024 07-03-2024 Chronic Genitourinary symptoms and ill-defined conditions (17 sources) Dysuria; Translations: [Dysuria] 06-28-2024 Episodic Maintenance chemotherapy; radiotherapy (17 sources) Patient encounter status; Translations: [Encounter for antineoplastic chemotherapy] 05-10-2024 Chronic Nausea and vomiting (17 sources) Chemotherapy-induced nausea and vomiting; Translations: [Nausea with vomiting, unspecified] 04-11-2024 Episodic Osteoarthritis (10 sources) Osteoarthrosis of the carpometacarpal joint of [...] Episodic Other bone disease and musculoskeletal deformities (17 sources) Other specified disorders of bone, unspecified site; Translations: [Bone pain due to granulocyte colony stimulating factor] 04-26-2024 Episodic Other circulatory disease (19 sources) Elevated blood-pressure reading without diagnosis of [...] Onset: 03-21-2025 Episodic Other connective tissue disease (17 sources) Paraparesis; Translations: [Other symptoms and signs [...] unspecified; Translations: [Neuralgia and neuritis, unspecified] Onset: 05-02-2025 Episodic Other connective tissue disease (2 sources) Other symptoms and signs involving the musculoskeletal system; Translations: [Other symptoms and signs involving the musculoskeletal system] Onset: 01-16-2025 Episodic Other connective tissue disease (1 source) Pain in right foot; Translations: [Pain in right foot] Onset: 04-23-2025 Episodic Other gastrointestinal disorders (17 sources) Diarrhea due to drug; Translations: [Toxic gastroenteritis and colitis] 04-26-2024 Episodic Other injuries and conditions due to external causes (20 sources) Closed injury of head; Translations: [Unspecified injury of head, initial encounter] 07-24-2022 Episodic Other lower respiratory disease (2 sources) Shortness of breath; Translations: [Shortness of breath] Onset: 05-01-2025 Episodic Other nervous system disorders (1 source) Anesthesia of skin; Translations: [Anesthesia of skin] Onset: 05-02-2025 Episodic Other non-traumatic joint disorders (13 sources) Pain in wrist; Translations: [Pain in [...] tubular adenoma in 2019 Residual codes; unclassified (17 sources) Other specified postprocedural states; Translations: [Status post right breast lumpectomy] 03-29-2024 Episodic Comment on above: SN LN- 1/1 neg 7/202 4 Residual codes; unclassified (2 sources) Estrogen receptor positive status [ER+]; Translations: [Estrogen receptor positive status [ER+]] Onset: 02-22-2025 Episodic Residual codes; unclassified (1 source) Acquired absence of other specified parts of digestive tract; Translations: [Acquired absence of other specified parts of digestive tract] Onset: 03-06-2025 Episodic Spondylosis; intervertebral disc disorders; other back problems (20 sources) Degeneration of thoracic intervertebral disc; Translations: [Other intervertebral disc degeneration, thoracic region] 10-28-2020 Chronic Spondylosis; intervertebral disc disorders; other back problems (20 sources) Backache; Translations: [Dorsalgia, unspecified] Onset: 01-22-2025 11-17-2020 Episodic Sprains and strains (4 sources) Sprain of right foot; Translations: [Unspecified [...] infection, unspecified site] Onset: 09-14-2010 09-14-2010 Episodic Nonmalignant breast conditions (20 sources) Mastodynia; Translations: [Pain of right breast] Onset: 05-10-2024 11-19-2024 Episodic Other circulatory disease (1 source) Elevated [...] [Pain in right wrist] Onset: 01-25-2025 Episodic Screening and history of mental health and substance abuse codes (20 sources) Tobacco use and exposure - finding; Translations: [Personal history of nicotine dependence] Onset: 01-03-2025 11-15-2023 Episodic Skin and subcutaneous tissue infections (12 sources) Abscess of groin; Translations: [Cutaneous abscess of groin] Onset: 02-10-2011 02-10-2011 Episodic Unclassified (20 sources) History of Thoracic Fracture 04-01-2022 Unclassified (20 sources) clavicle surgery 04-01-2022 Results Test Name Value Interpretation Reference Range Facility Echo Completeon 05-01-2025 Echo Complete Normal [facility] Ankle Brachial Indexon 04-25 Ankle Brachial Index Normal [facility] Arterial study reportOrdered By: Michael Cabello on 04-25-2025 Noninvasive arteriosclerosis study report [facility] [address] [place] [address] Ankle Brachial Index 04/25/25 0933 MR#: [id number] Acct: [id number] Name: FEDE LUIS Rep #:[id number] : 1970 55 From: Michael Cabello [...] ~ Date Dictated: 04/25/25932 Date Transcribed: 04/25/252155 It Security Project Manager: Signed [facility] Other Electrocardiogram reportOrde red By: Edy Mercedes on 04-24-2025 EKG study [facility] [address] [place] [address] 12 Lead EKG 04/23/25 1033 MR#: [id number] Acct: [id number] Name: FEDE LUIS Rep #:[id number] : 1970 55 From: Edy tomlinson MD Attending Dr: Dr. Carrillo Driscoll MD Status: REG [facility] Ordering Dr: Carrillo Driscoll MD Date: 09/05 Location: [facility] Sex: F C Admitted: Test Reason : [...] undetermined Abnormal ECG Confirmed by Edy Mercedes ([id number]), assignment editor ALBERTO LINK ([id number]) on 59:34:31 AM Referred By: Carrillo Driscoll Confirmed By: Edy Mercedes 04/24/25933 Date _ Edy Mercedes MD CC: Dr. Carrillo Driscoll MD ~ Signed [facility] Other 12 Lead EKGon 04-23-2025 12 Lead EKG Normal [facility] Ankle min 3 Viewson 04-18-20 25 Ankle min 3 Views Normal [facility] Emergency Department Summary on 04-18-2025 Emergency Department Summary Normal [facility] Foot min 3 Viewson 5 Foot min 3 Views Normal [facility] Protein Electroph, Son 04-15 Albumin [Mass/Vol] 4.0 g/dL Normal 2.9-4.4 [facility] Comment on above: Performed By: #### L [id number], L500.4050, L501.9520, L3100.3450, L100.0100 ####[facility] [address] [place], [address] Albumin/Globulin [Mass ratio] 1.3 {ratio} Normal 0.7-1.7 [facility] Comment on above: Performed By: #### L 503.0106, L500.4050, L501.9520, L3100.3450, L100.0100 ####[facility] [address] [place], [address] ALPHA-1 GLOBUL 0.3 g/dL Normal 0.0-0.4 [facility] [place] Comment on above: Performed By: #### L 503.0106, L500.4050, L501.9520, L3100.3450, L100.0100 ####[facility] [address] [place], [address] ALPHA-2 GLOBUL 0.9 g/dL Normal 0.4-1.0 [facility] Comment on above: Performed By: #### L 503.0106, L500.4050, L501.9520, L3100.3450, L100.0100 ####[facility] [address] [place], [address] BETA GLOBULIN 1.2 g/dL Normal 0.7-1.3 [facility] Comment on above: Performed By: #### L 503.0106, L500.4050, L501.9520, L3100.3450, L100.0100 ####[facility] [address] [place], [address] GAMMA GLOBULIN 0.8 g/dL Normal 0.4-1.8 [facility] Comment on above: Performed By: #### L 503.0106, L500.4050, L501.9520, L3100.3450, L100.0100 ####[facility] [address] [place], [address] Globulin (S) [Mass/Vol] 3.2 g/dL Normal 2.2-3.9 [facility] Comment on above: Performed By: #### L 503.0106, L500.4050, L501.9520, L3100.3450, L100.0100 ####[facility] [address] [place], [address] INTERPRETATION Comment Normal . [facility] Comment on above: Result Comment: Prot ein electrophoresis scan will follow via computer,mail, or longitudinal float operator delivery. Performed By: #### L 503.0106, L500.4050, L501.9520, L3100.3450, L100.0100 ####[facility] [address] [place], [address] M-SPIKE Not Observed Normal Not Observed [facility] Comment on above: Performed By: #### L 503.0106, L500.4050, L501.9520, L3100.3450, L100.0100 ####[facility] [address] [place], [place], [id number] NOTE: Comment Normal . [facility] Comment on above: Result Comment: The SPE pattern appears unremarkable. Evidence ofmonoclonal protein is not apparent.Performed at: [address] [id number] Director: Louis Yao PhD, Phone: [phone] Performed By: #### L 503.0106, L500.4050, L501.9520, L3100.3450, L100.0100 ####[facility] [address] [place], [address] Protein [Mass/Vol] 7.2 g/dL Normal 6.0-8.5 [facility] Comment on above: Performed By: #### L 503.0106, L500.4050, L501.9520, L3100.3450, L100.0100 ####[facility] [address] [place], [address] Absolute lymphocyte countOrd ered By: Carrillo Driscoll on 04-12-2025 Lymphocytes Auto (Unsp spec) [#/Vol] 1.92 10*3/uL 0.83-4.51 [facility] Absolute neutrophil countOrd ered By: Carrillo Driscoll on 04-12-2025 Neutrophils (Bld) [#/Vol] 1.9 10*3/uL Low 2.0-7.7 [facility] Albumin Elph [Mass/Vol]Order ed By: Carrillo Driscoll on 04-12-2025 Albumin [Mass/Vol] 4.0 g/dL 2.9-4.4 [facility] Anion gap in Serum or Plasma Ordered By: Carrillo Driscoll on 04-12-2025 Anion gap [Moles/Vol] 12 mmol/L 5-15 [facility] Automated blood erythrocyte countOrdered By: Carrillo Driscoll on 04-12-2025 RBC (Bld) [#/Vol] 4.16 10*6/uL Low 4.2-5.4 [facility] Comment on above: Performed By: #### L 503.0106, L500.4050, L501.9520, L3100.3450, L100.0100 ####[facility] [address] [place], [address] Automated blood hematocrit ( percentage)Ordered By: Carrillo Driscoll on 04-12-2025 Hematocrit (Bld) [Volume fraction] 38.9 % Normal 37-47 [facility] Comment on above: Performed By: #### L 503.0106, L500.4050, L501.9520, L3100.3450, L100.0100 ####[facility] [address] [place], [address] Automated lymphocyte count a s percentage of total leukocytesOrdered By: Carrillo Driscoll on 04-12-2025 Lymphocytes/100 WBC Auto (Unsp spec) 44.5 % High 19-41 [facility] BUN/creatinine ratioOrdered By: Carrillo Driscoll on 04-12-2025 Urea nitrogen/Creatinine [Mass ratio] 34.7 mg/mg High 10-20 [facility] Basophil percentageOrdered B y: Carrillo Driscoll on 04-12-2025 Basophils/100 WBC (Bld) 1.9 % High 0-1 [facility] Comment on above: Performed By: #### L 503.0106, L500.4050, L501.9520, L3100.3450, L100.0100 ####[facility] [address] [place], [address] Bilirubin, totalOrdered By: Carrillo Driscoll on 04-12-2025 Bilirubin [Mass/Vol] 0.15 mg/dL 0.00-1.30 [facility] CBC W/Diff, Automatedon Absolute Lymph 1.92 X10 3/uL Normal 0.83-4.51 [facility] Comment on above: Performed By: #### L 503.0106, L500.4050, L501.9520, L3100.3450, L100.0100 ####[facility] [address] [place], [address] Absolute Neut 1.9 X10 3/uL Low 2.0-7.7 [facility] Comment on above: Performed By: #### L 503.0106, L500.4050, L501.9520, L3100.3450, L100.0100 ####[facility] [address] [place], [address] IG% 0.200 Normal 0.0-0.9 [facility] Comment on above: Result Comment: IG% - Immature Granulocytes (promyelocytes, myelocytes andmetamyelocytes) > 1% indicates that a LEFT SHIFT is Present. Performed By: #### L 503.0106, L500.4050, L501.9520, L3100.3450, L100.0100 ####[facility] [address] [place], [address] Lymphocytes/100 WBC (Bld) 44.5 % High 19-41 [facility] Comment on above: Performed By: #### L 503.0106, L500.4050, L501.9520, L3100.3450, L100.0100 ####[facility] [address] [place], [address] Nucleated RBC (Bld) [#/Vol] 0 10*3/uL Normal 0-5 [facility] Comment on above: Performed By: #### L 503.0106, L500.4050, L501.9520, L3100.3450, L100.0100 ####[facility] [address] [place], [address] RDW SD 42.0 fl Normal 35.1-43.9 [facility] Comment on above: Performed By: #### L 503.0106, L500.4050, L501.9520, L3100.3450, L100.0100 ####[facility] [address] [place], [address] Carbon dioxide, total [Moles /volume] in Central venous bloodOrdered By: Carrillo Driscoll on 04-12-2025 CO2 [Moles/Vol] 25.1 mmol/L 21.0-32.0 [facility] Chloride assayOrdered By: Jeremy Driscoll on 04-12-2025 Chloride [Moles/Vol] 106 mmol/L 98-108 [facility] Comprehensive Metabolic Prof ilon 04-12-2025 Albumin [Mass/Vol] 4.7 g/dL Normal 3.5-5.0 [facility] Comment on above: Performed By: #### L 503.0106, L500.4050, L501.9520, L3100.3450, L100.0100 ####[facility] [address] [place], [address] Albumin/Globulin [Mass ratio] 1.6 {ratio} Normal 0.9-2.4 [facility] Comment on above: Performed By: #### L 503.0106, L500.4050, L501.9520, L3100.3450, L100.0100 ####[facility] [address] [place], [address] ALK PHOS 107 U/L High 35-104 [facility] Comment on above: Performed By: #### L 503.0106, L500.4050, L501.9520, L3100.3450, L100.0100 ####[facility] [address] [place], [address] ALT [Catalytic activity/Vol] 16 U/L Normal <=34 [facility] Comment on above: Performed By: #### L 503.0106, L500.4050, L501.9520, L3100.3450, L100.0100 ####[facility] [address] [place], [address] AST [Catalytic activity/Vol] 24 U/L Normal <=31 [facility] Comment on above: Performed By: #### L 503.0106, L500.4050, L501.9520, L3100.3450, L100.0100 ####[facility] [address] [place], [address] Bilirubin [Mass/Vol] 0.15 mg/dL Normal 0.00-1.30 [facility] Comment on above: Performed By: #### L 503.0106, L500.4050, L501.9520, L3100.3450, L100.0100 ####[facility] [address] [place], [address] BUN/CRE 34.7 RATIO High 10-20 [facility] Comment on above: Performed By: #### L 503.0106, L500.4050, L501.9520, L3100.3450, L100.0100 ####[facility] [address] [place], [address] Calcium [Mass/Vol] 9.7 mg/dL Normal 7.6-11.0 [facility] Comment on above: Performed By: #### L 503.0106, L500.4050, L501.9520, L3100.3450, L100.0100 ####[facility] [address] [place], [address] Chloride [Moles/Vol] 106 mmol/L Normal 98-108 [facility] Comment on above: Performed By: #### L 503.0106, L500.4050, L501.9520, L3100.3450, L100.0100 ####[facility] [address] [place], [address] CO2 [Moles/Vol] 25.1 mmol/L Normal 21.0-32.0 [facility] Comment on above: Performed By: #### L 503.0106, L500.4050, L501.9520, L3100.3450, L100.0100 ####[facility] [address] [place], [address] Creatinine [Mass/Vol] 0.60 mg/dL Low 0.70-1.20 [facility] Comment on above: Performed By: #### L 503.0106, L500.4050, L501.9520, L3100.3450, L100.0100 ####[facility] [address] [place], [address] GAP 12 Normal 5-15 [facility] Comment on above: Performed By: #### L 503.0106, L500.4050, L501.9520, L3100.3450, L100.0100 ####[facility] [address] [place], [address] GFR/1.73 sq M.predicted among non-blacks MDRD (S/P/Bld) [Vol rate/Area] 105 mL/min/{1.73_m2} Normal >60 [facility] Comment on above: Result Comment: mL/m in/1.73m2 CKD-EPI Creatinine Equation (2020) Performed By: #### L 503.0106, L500.4050, L501.9520, L3100.3450, L100.0100 ####[facility] [address] [place], [address] Globulin (S) [Mass/Vol] 3.0 g/dL Normal 2.2-4.2 [facility] Comment on above: Performed By: #### L 503.0106, L500.4050, L501.9520, L3100.3450, L100.0100 ####[facility] [address] [place], [address] Glucose [Mass/Vol] 89 mg/dL Normal 70-99 [facility] Comment on above: Performed By: #### L 503.0106, L500.4050, L501.9520, L3100.3450, L100.0100 ####[facility] [address] [place], [address] Potassium [Moles/Vol] 4.6 mmol/L Normal 3.3-5.1 [facility] Comment on above: Performed By: #### L 503.0106, L500.4050, L501.9520, L3100.3450, L100.0100 ####[facility] [address] [place], [address] Sodium [Moles/Vol] 143 mmol/L Normal 133-145 [facility] Comment on above: Performed By: #### L 503.0106, L500.4050, L501.9520, L3100.3450, L100.0100 ####[facility] [address] [place], [address] T PROT 7.7 g/dL Normal 5.9-8.4 [facility] Comment on above: Performed By: #### L 503.0106, L500.4050, L501.9520, L3100.3450, L100.0100 ####[facility] [address] [place], [address] Urea nitrogen [Mass/Vol] 21 mg/dL High 4-19 [facility] Comment on above: Performed By: #### L 503.0106, L500.4050, L501.9520, L3100.3450, L100.0100 ####[facility] [address] [place], [address] Eosinophil percentageOrdered By: Carrillo Driscoll on 04-12-2025 Eosinophils/100 WBC (Bld) 1.2 % Normal 0-5 [facility] Comment on above: Performed By: #### L 503.0106, L500.4050, L501.9520, L3100.3450, L100.0100 ####[facility] [address] [place], [address] Erythrocyte distribution wid th ratioOrdered By: Carrillo Driscoll on 04-12-2025 Erythrocyte distribution width (RBC) [Ratio] 12.1 % Normal 11.6-14.6 [facility] Comment on above: Performed By: #### L 503.0106, L500.4050, L501.9520, L3100.3450, L100.0100 ####[facility] [address] [place], [place], [id number] Erythrocyte distribution wid th standard deviationOrdered By: Carrillo Driscoll on 04-12-2025 Erythrocyte distribution width (RBC) [Ratio] 42.0 fl 35.1-43.9 [facility] Glomerular filtration rate ( GFR) estimation/1.73 sq m using serum, plasma, or whole bOrdered By: Carrillo Driscoll on 04-12-2025 GFR/1.73 sq M.predicted among non-blacks MDRD (S/P/Bld) [Vol rate/Area] 105 mL/min/{1.73_m2} >60 [facility] Comment on above: mL/min/1.73m2 CKD-EP I Creatinine Equation (2020) Hemoglobin measurementOrdere d By: Carrillo Driscoll on 04-12-2025 Hemoglobin (Bld) [Mass/Vol] 13.3 g/dL Normal 12.0-15.0 [facility] Comment on above: Performed By: #### L 503.0106, L500.4050, L501.9520, L3100.3450, L100.0100 ####[facility] [address] [facility] [place], [place], [id number] Immature granulocytes/100 WB C Auto (Bld)Ordered By: Carrillo Driscoll on 04-12-2025 Immature granulocytes/100 WBC (Bld) 0.200 % 0.0-0.9 [facility] Comment on above: IG% - Immature Granu locytes (promyelocytes, myelocytes and metamyelocytes) > 1% indicates that a LEFT SHIFT is Present. Laboratory - Chemistry and C hemistry - challengeOrdered By: Carrillo Driscoll on 04-12-2025 AST [Catalytic activity/Vol] 24 U/L <32 [facility] MCV (mean corpuscular volume ) determinationOrdered By: Carrillo Driscoll on 04-12-2025 MCV (RBC) [Entitic vol] 93.5 fL Normal 81-99 [facility] Comment on above: Performed By: #### L 503.0106, L500.4050, L501.9520, L3100.3450, L100.0100 ####[facility] [address] [place], [address] Mean corpuscular hemoglobin (MCH) determinationOrdered By: Carrillo Driscoll on 04-12-2025 MCH (RBC) [Entitic mass] 32.0 pg Normal 27.0-32.0 [facility] Comment on above: Performed By: #### L 503.0106, L500.4050, L501.9520, L3100.3450, L100.0100 ####[facility] [address] [place], [address] Mean corpuscular hemoglobin concentration (MCHC) determinationOrdered By: Carrillo Driscoll on 04-12-2025 MCHC (RBC) [Mass/Vol] 34.2 g/dL Normal 32-36 [facility] Comment on above: Performed By: #### L 503.0106, L500.4050, L501.9520, L3100.3450, L100.0100 ####[facility] [address] [place], [address] Mean platelet volume determi nationOrdered By: Carrillo Driscoll on 04-12-2025 Platelet mean volume (Bld) [Entitic vol] 9.5 fL Normal 6.2-12.0 [facility] Comment on above: Performed By: #### L 503.0106, L500.4050, L501.9520, L3100.3450, L100.0100 ####[facility] [address] [place], [address] Monocyte percentageOrdered B y: Carrillo Driscoll on 04-12-2025 Monocytes/100 WBC (Bld) 7.9 % Normal 0-10 [facility] Comment on above: Performed By: #### L 503.0106, L500.4050, L501.9520, L3100.3450, L100.0100 ####[facility] [address] [place], [address] Neutrophil percentageOrdered By: Carrillo Driscoll on 04-12-2025 Neutrophils/100 WBC (Bld) 44.3 % Low 47-70 [facility] Comment on above: Performed By: #### L 503.0106, L500.4050, L501.9520, L3100.3450, L100.0100 ####[facility] [address] [place], [place], [id number] No Panel InformationOrdered By: Carrillo Driscoll on 04-12-2025 Addendum Document Comment . [facility] Comment on above: The SPE pattern appe ars unremarkable. Evidence ofmonoclonal protein is not apparent.Performed at: [facility] [id number] Director: Louis Yao PhD, Phone: [phone] Nucleated red blood cell per centageOrdered By: Carrillo Driscoll on 04-12-2025 Nucleated RBC/100 WBC (Bld) [Ratio] 0 % 0-5 [facility] Platelet countOrdered By: Jeremy Driscoll on 04-12-2025 Platelets (Bld) [#/Vol] 380 10*3/uL Normal 150-450 [facility] Comment on above: Performed By: #### L 503.0106, L500.4050, L501.9520, L3100.3450, L100.0100 ####[facility] [address] [place], [address] Potassium measurement (mass/ volume)Ordered By: Carrillo Driscoll on 04-12-2025 Potassium (Unsp spec) [Mass/Vol] 4.6 mmol/L 3.3-5.1 [facility] Protein Fractions Elph [Inte rp]Ordered By: Carrillo Driscoll on 04-12-2025 Protein Fractions [Interp] Comment . [facility] Comment on above: Protein electrophore sis scan will follow via computer,mail, or longitudinal float operator delivery. Serum albumin to globulin ra stephanie by protein electrophoresisOrdered By: Carrillo Driscoll on 04-12-2025 Albumin/Globulin Elph [Mass ratio] 1.3 0.7-1.7 [facility] Serum creatinine measurement (mass/volume)Ordered By: Carrillo Driscoll on 04-12-2025 Creatinine [Mass/Vol] 0.60 mg/dL Low 0.70-1.20 [facility] Serum globulin measurementOr dered By: Carrillo Driscoll on 04-12-2025 Globulin (S) [Mass/Vol] 3.0 g/dL 2.2-4.2 [facility] Serum globulin measurement ( mass/volume)Ordered By: Carrillo Driscoll on 04-12-2025 Globulin (S) [Mass/Vol] 3.2 g/dL 2.2-3.9 [facility] Serum glucose measurement (m ass/volume)Ordered By: Carrillo Driscoll on 04-12-2025 Glucose [Mass/Vol] 89 mg/dL 70-99 [facility] Serum or plasma alanine ho otransferase (ALT) measurementOrdered By: Carrillo Driscoll on 04-12-2025 ALT [Catalytic activity/Vol] 16 U/L <35 [facility] Serum or plasma albumin royal urement (mass/volume)Ordered By: Carrillo Driscoll on 04-12-2025 Albumin [Mass/Vol] 4.7 g/dL 3.5-5.0 [facility] Serum or plasma albumin/glob ulin mass ratioOrdered By: Carrillo Driscoll 04-12-2025 Albumin/Globulin [Mass ratio] 1.6 {ratio} 0.9-2.4 [facility] Serum or plasma alkaline ida sphatase measurementOrdered By: Carrillo Driscoll 04-12-2025 ALP [Catalytic activity/Vol] 107 U/L High 35-104 [facility] Serum or plasma beta globuli n measurement by electrophoresis (mass/volume)Ordered By: Carrillo Driscoll 04-12-2025 Beta globulin Elph [Mass/Vol] 1.2 g/dL 0.7-1.3 [facility] Serum or plasma calcium royal urement (mass/volume)Ordered By: Carrillo Driscoll 04-12-2025 Calcium [Mass/Vol] 9.7 mg/dL 7.6-11.0 [facility] Serum or plasma protein royal urement (mass/volume)Ordered By: Carrillo Driscoll 04-12-2025 Protein [Mass/Vol] 7.2 g/dL 6.0-8.5 [facility] Serum or plasma protein mono clonal measurement by electrophoresis (mass/volume)Ordered By: Carrillo Driscoll on 04-12-2025 Protein.monoclonal Elph [Mass/Vol] Not Observed g/dL Not Observed [facility] Serum or plasma urea nitroge n measurement (mass/volume)Ordered By: Carrillo Driscoll on 04-12-2025 Urea nitrogen [Mass/Vol] 21 mg/dL High 4-19 [facility] Sodium levelOrdered By: Carrillo Driscoll on 04-12-2025 Sodium [Moles/Vol] 143 mmol/L 133-145 [facility] TSH DL <= 0.005 mIU/L QnOrde red By: Carrillo Driscoll on 04-12-2025 TSH Qn 1.040 uIU/mL 0.300-4.200 [facility] Thyroid Stim Hormone (TSH)on 04-12-2025 TSH 1.040 uIU/mL Normal 0.300-4.200 [facility] Comment on above: Performed By: #### L 503.0106, L500.4050, L501.9520, L3100.3450, L100.0100 ####[facility] [address] [place], [address] Total proteinOrdered By: Carrillo Driscoll on 04-12-2025 Protein [Mass/Vol] 7.7 g/dL 5.9-8.4 [facility] Vitamin B12on 04-12-2025 Cobalamin (Vitamin B12) [Mass/Vol] 436 pg/mL Normal 180-914 [facility] Comment on above: Performed By: #### L 503.0106, L500.4050, L501.9520, L3100.3450, L100.0100 ####[facility] [address] [facility] [address] [place], [place], [id number] Vitamin B12 ser/plasOrdered By: Carrillo Driscoll on 04-12-2025 Cobalamin (Vitamin B12) [Mass/Vol] 436 pg/mL 180-914 [facility] White blood cell (WBC) count Ordered By: Carrillo Driscoll on 04-12-2025 WBC (Bld) [#/Vol] 4.3 10*3/uL Low 4.4-11.0 [facility] Comment on above: Performed By: #### L 503.0106, L500.4050, L501.9520, L3100.3450, L100.0100 ####[facility] [address] [place], [address] Absolute lymphocyte countOrd ered By: Silvino Collins on 02-27-2025 Lymphocytes Auto (Unsp spec) [#/Vol] 1.92 10*3/uL 0.83-4.51 [facility] Absolute neutrophil countOrd ered By: Silvino Collins on 02-27-2025 Neutrophils (Bld) [#/Vol] 3.3 10*3/uL 2.0-7.7 [facility] Anion gap in Serum or Plasma Ordered By: Silvino Collins on 02-27-2025 Anion gap [Moles/Vol] 12 mmol/L 5-15 [facility] Automated lymphocyte count a s percentage of total leukocytesOrdered By: Silvino Collins on 02-27-2025 Lymphocytes/100 WBC Auto (Unsp spec) 33.3 % 19-41 [facility] BUN/creatinine ratioOrdered By: Silvino Collins on 02-27-2025 Urea nitrogen/Creatinine [Mass ratio] 35.8 mg/mg High 10-20 [facility] Basophil percentageOrdered B y: Silvino Collins on 02-27-2025 Basophils/100 WBC (Bld) 1.2 % High 0-1 [facility] Bilirubin, totalOrdered By: Silvino Collins on 02-27-2025 Bilirubin [Mass/Vol] 0.29 mg/dL 0.00-1.30 [facility] CBC W/Diff, Automatedon 02-10 Absolute Lymph 1.92 X10 3/uL Normal 0.83-4.51 [facility] Comment on above: Performed By: #### L 100.0100, L500.4050 ####[facility] [address] [place], [address] Absolute Neut 3.3 X10 3/uL Normal 2.0-7.7 [facility] Comment on above: Performed By: #### L 100.0100, L500.4050 ####[facility] [address] [place], [address] Basophils/100 WBC (Bld) 1.2 % High 0-1 [facility] Comment on above: Performed By: #### L 100.0100, L500.4050 ####[facility] [address] [place], [place], [address] Eosinophils/100 WBC (Bld) 0.5 % Normal 0-5 [facility] Comment on above: Performed By: #### L 100.0100, L500.4050 ####[facility] [address] [place], [address] Erythrocyte distribution width (RBC) [Ratio] 11.9 % Normal 11.6-14.6 [facility] Comment on above: Performed By: #### L 100.0100, L500.4050 ####[facility] [address] [place], [address] Hematocrit (Bld) [Volume fraction] 34.3 % Low 37-47 [facility] Comment on above: Performed By: #### L 100.0100, L500.4050 ####[facility] [address] [place], [address] Hemoglobin (Bld) [Mass/Vol] 11.8 g/dL Low 12.0-15.0 [facility] Comment on above: Performed By: #### L 100.0100, L500.4050 ####[facility] [address] [place], [address] IG% 0.200 Normal 0.0-0.9 [facility] Comment on above: Result Comment: IG% - Immature Granulocytes (promyelocytes, myelocytes andmetamyelocytes) > 1% indicates that a LEFT SHIFT is Present. Performed By: #### L 100.0100, L500.4050 ####[facility] [address] [place], [address] Lymphocytes/100 WBC (Bld) 33.3 % Normal 19-41 [facility] Comment on above: Performed By: #### L 100.0100, L500.4050 ####[facility] [address] [place], [address] MCH (RBC) [Entitic mass] 31.6 pg Normal 27.0-32.0 [facility] Comment on above: Performed By: #### L 100.0100, L500.4050 ####[facility] [address] [place], [address] MCHC (RBC) [Mass/Vol] 34.4 g/dL Normal 32-36 [facility] Comment on above: Performed By: #### L 100.0100, L500.4050 ####[facility] [address] [place], [address] MCV (RBC) [Entitic vol] 92.0 fL Normal 81-99 [facility] Comment on above: Performed By: #### L 100.0100, L500.4050 ####[facility] [address] [place], [address] Monocytes/100 WBC (Bld) 7.8 % Normal 0-10 [facility] Comment on above: Performed By: #### L 100.0100, L500.4050 ####[facility] [address] [place], [address] Neutrophils/100 WBC (Bld) 57.0 % Normal 47-70 [facility] Comment on above: Performed By: #### L 100.0100, L500.4050 ####[facility] [address] [place], [address] Nucleated RBC (Bld) [#/Vol] 0 10*3/uL Normal 0-5 [facility] Comment on above: Performed By: #### L 100.0100, L500.4050 ####[facility] [address] [place], [address] Platelet mean volume (Bld) [Entitic vol] 9.4 fL Normal 6.2-12.0 [facility] Comment on above: Performed By: #### L 100.0100, L500.4050 ####[facility] [address] [place], [address] Platelets (Bld) [#/Vol] 329 10*3/uL Normal 150-450 [facility] Comment on above: Performed By: #### L 100.0100, L500.4050 ####[facility] [address] [place], [address] RBC (Bld) [#/Vol] 3.73 10*6/uL Low 4.2-5.4 [facility] Comment on above: Performed By: #### L 100.0100, L500.4050 ####[facility] [address] [place], [address] RDW SD 39.8 fl Normal 35.1-43.9 [facility] Comment on above: Performed By: #### L 100.0100, L500.4050 ####[facility] [address] [place], [address] WBC (Bld) [#/Vol] 5.8 10*3/uL Normal 4.4-11.0 [facility] Comment on above: Performed By: #### L 100.0100, L500.4050 ####[facility] [address] [place], [address] Carbon dioxide, total [Moles /volume] in Central venous bloodOrdered By: Silvino Collins on 02-27-2025 CO2 [Moles/Vol] 23.3 mmol/L 21.0-32.0 [facility] Chloride assayOrdered By: Nilam Collins on 02-27-2025 Chloride [Moles/Vol] 104 mmol/L 98-108 [facility] Comprehensive Metabolic Prof ilon 02-27-2025 Albumin [Mass/Vol] 4.7 g/dL Normal 3.5-5.0 [facility] Comment on above: Performed By: #### L 100.0100, L500.4050 ####[facility] [address] [place], [address] Albumin/Globulin [Mass ratio] 1.8 {ratio} Normal 0.9-2.4 [facility] Comment on above: Performed By: #### L 100.0100, L500.4050 ####[facility] [address] [place], [address] ALK PHOS 92 U/L Normal 35-104 [facility] Comment on above: Performed By: #### L 100.0100, L500.4050 ####[facility] [address] [place], [address] ALT [Catalytic activity/Vol] 16 U/L Normal <=34 [facility] Comment on above: Performed By: #### L 100.0100, L500.4050 ####[facility] [address] [place], [address] AST [Catalytic activity/Vol] 26 U/L Normal <=31 [facility] Comment on above: Performed By: #### L 100.0100, L500.4050 ####[facility] [address] [place], [address] Bilirubin [Mass/Vol] 0.29 mg/dL Normal 0.00-1.30 [facility] Comment on above: Performed By: #### L 100.0100, L500.4050 ####[facility] [address] [place], [address] BUN/CRE 35.8 RATIO High 10-20 [facility] Comment on above: Performed By: #### L 100.0100, L500.4050 ####[facility] [address] [place], [address] Calcium [Mass/Vol] 9.6 mg/dL Normal 7.6-11.0 [facility] Comment on above: Performed By: #### L 100.0100, L500.4050 ####[facility] [address] [place], [address] Chloride [Moles/Vol] 104 mmol/L Normal 98-108 [facility] Comment on above: Performed By: #### L 100.0100, L500.4050 ####[facility] [address] [place], [address] CO2 [Moles/Vol] 23.3 mmol/L Normal 21.0-32.0 [facility] Comment on above: Performed By: #### L 100.0100, L500.4050 ####[facility] [address] [place], [address] Creatinine [Mass/Vol] 0.59 mg/dL Low 0.70-1.20 [facility] Comment on above: Performed By: #### L 100.0100, L500.4050 ####[facility] [address] [place], [address] ECRCL 107.40 ml/min Normal 50-250 [facility] Comment on above: Performed By: #### L 100.0100, L500.4050 ####[facility] [address] [place], [address] GAP 12 Normal 5-15 [facility] Comment on above: Performed By: #### L 100.0100, L500.4050 ####[facility] [address] [place], [address] GFR/1.73 sq M.predicted among non-blacks MDRD (S/P/Bld) [Vol rate/Area] 106 mL/min/{1.73_m2} Normal >60 [facility] Comment on above: Result Comment: mL/m in/1.73m2 CKD-EPI Creatinine Equation (2020) Performed By: #### L 100.0100, L500.4050 ####[facility] [address] [place], [address] Globulin (S) [Mass/Vol] 2.6 g/dL Normal 2.2-4.2 [facility] Comment on above: Performed By: #### L 100.0100, L500.4050 ####[facility] [address] [place], [address] Glucose [Mass/Vol] 104 mg/dL High 70-99 [facility] Comment on above: Performed By: #### L 100.0100, L500.4050 ####[facility] [address] [place], [address] Potassium [Moles/Vol] 3.9 mmol/L Normal 3.3-5.1 [facility] Comment on above: Performed By: #### L 100.0100, L500.4050 ####[facility] [address] [place], [address] Sodium [Moles/Vol] 139 mmol/L Normal 133-145 [facility] Comment on above: Performed By: #### L 100.0100, L500.4050 ####[facility] [address] [place], [address] T PROT 7.3 g/dL Normal 5.9-8.4 [facility] Comment on above: Performed By: #### L 100.0100, L500.4050 ####[facility] [address] [place], [place], [address] Urea nitrogen [Mass/Vol] 21 mg/dL High 4-19 [facility] Comment on above: Performed By: #### L 100.0100, L500.4050 ####[facility] [address] [place], [address] Eosinophil percentageOrdered By: Lincoln Karina on 02-27-2025 Eosinophils/100 WBC (Bld) 0.5 % 0-5 [facility] Erythrocyte distribution wid th ratioOrdered By: [facility] on 02-27-2025 Erythrocyte distribution width (RBC) [Ratio] 11.9 % 11.6-14.6 [facility] Erythrocyte distribution wid th standard deviationOrdered By: [facility] on 02-27-2025 Erythrocyte distribution width (RBC) [Ratio] 39.8 fl 35.1-43.9 [facility] Glomerular filtration rate ( GFR) estimation/1.73 sq m using serum, plasma, or whole bOrdered By: [facility] on 02-27-2025 GFR/1.73 sq M.predicted among non-blacks MDRD (S/P/Bld) [Vol rate/Area] 106 mL/min/{1.73_m2} >60 [facility] Comment on above: mL/min/1.73m2 CKD-EP I Creatinine Equation (2020) Hematocrit Auto (Bld) [Volum e fraction]Ordered By: [facility] on 02-27-2025 Hematocrit (Bld) [Volume fraction] 34.3 % Low 37-47 [facility] Hemoglobin measurementOrdere d By: [facility] on 02-27-2025 Hemoglobin (Bld) [Mass/Vol] 11.8 g/dL Low 12.0-15.0 [facility] Immature granulocytes/100 WB C Auto (Bld)Ordered By: Silvino Collins on 02-27-2025 Immature granulocytes/100 WBC (Bld) 0.200 % 0.0-0.9 [facility] Comment on above: IG% - Immature Granu locytes (promyelocytes, myelocytes and metamyelocytes) > 1% indicates that a LEFT SHIFT is Present. Laboratory - Chemistry and C hemistry - challengeOrdered By: Silvino Collins on 02-27-2025 AST [Catalytic activity/Vol] 26 U/L <32 [facility] MCV (mean corpuscular volume ) determinationOrdered By: Silvino Collins on 02-27-2025 MCV (RBC) [Entitic vol] 92.0 fL 81-99 [facility] Mean corpuscular hemoglobin (MCH) determinationOrdered By: Silvino Collins on 02-27-2025 MCH (RBC) [Entitic mass] 31.6 pg 27.0-32.0 [facility] Mean corpuscular hemoglobin concentration (MCHC) determinationOrdered By: Silvino Collins on 02-27-2025 MCHC (RBC) [Mass/Vol] 34.4 g/dL 32-36 [facility] Mean platelet volume determi nationOrdered By: Silvino Collins on 02-27-2025 Platelet mean volume (Bld) [Entitic vol] 9.4 fL 6.2-12.0 [facility] Monocyte percentageOrdered B y: Silvino Collins on 02-27-2025 Monocytes/100 WBC (Bld) 7.8 % 0-10 [facility] Neutrophil percentageOrdered By: Silvino Collins on 02-27-2025 Neutrophils/100 WBC (Bld) 57.0 % 47-70 [facility] Nucleated red blood cell per centageOrdered By: Silvino Collins on 02-27-2025 Nucleated RBC/100 WBC (Bld) [Ratio] 0 % 0-5 [facility] Oncology Visit Reporton 02-10 Oncology Visit Report Normal [facility] Platelet countOrdered By: Nilam Collins on 02-27-2025 Platelets (Bld) [#/Vol] 329 10*3/uL 150-450 [facility] Potassium measurement (mass/ volume)Ordered By: Silvino Collins on 02-27-2025 Potassium (Unsp spec) [Mass/Vol] 3.9 mmol/L 3.3-5.1 [facility] RBC Auto (Bld) [#/Vol]Ordere d By: Silvino Collins on 02-27-2025 RBC (Bld) [#/Vol] 3.73 10*6/uL Low 4.2-5.4 [facility] Serum creatinine measurement (mass/volume)Ordered By: Silvino Collins on 02-27-2025 Creatinine [Mass/Vol] 0.59 mg/dL Low 0.70-1.20 [facility] Serum globulin measurementOr dered By: Silvino Collins on 02-27-2025 Globulin (S) [Mass/Vol] 2.6 g/dL 2.2-4.2 [facility] Serum glucose measurement (m ass/volume)Ordered By: Silvino Collins on 02-27-2025 Glucose [Mass/Vol] 104 mg/dL High 70-99 [facility] Serum or plasma alanine ho otransferase (ALT) measurementOrdered By: Silvino Collins on 02-27-2025 ALT [Catalytic activity/Vol] 16 U/L <35 [facility] Serum or plasma albumin royal urement (mass/volume)Ordered By: Silvino Collins on 02-27-2025 Albumin [Mass/Vol] 4.7 g/dL 3.5-5.0 [facility] Serum or plasma albumin/glob ulin mass ratioOrdered By: Silvino Collins on 02-27-2025 Albumin/Globulin [Mass ratio] 1.8 {ratio} 0.9-2.4 [facility] Serum or plasma alkaline ida sphatase measurementOrdered By: Silvino Collins on 02-27-2025 ALP [Catalytic activity/Vol] 92 U/L 35-104 [facility] Serum or plasma calcium royal urement (mass/volume)Ordered By: Silvino Collins on 02-27-2025 Calcium [Mass/Vol] 9.6 mg/dL 7.6-11.0 [facility] Serum or plasma urea nitroge n measurement (mass/volume)Ordered By: Silvino Collins on 02-27-2025 Urea nitrogen [Mass/Vol] 21 mg/dL High 4-19 [facility] Sodium levelOrdered By: Thom Collins on 02-27-2025 Sodium [Moles/Vol] 139 mmol/L 133-145 [facility] Total proteinOrdered By: Davon Collins on 02-27-2025 Protein [Mass/Vol] 7.3 g/dL 5.9-8.4 [facility] White blood cell (WBC) count Ordered By: Silvino Collins on 02-27-2025 WBC (Bld) [#/Vol] 5.8 10*3/uL 4.4-11.0 [facility] Inital Evaluation (1) - PTon 02-26-2025 Inital Evaluation (1) - PT Normal [facility] Plastic Surgery Visit Report on 02-22-2025 Plastic Surgery Visit Report Normal [facility] Colonoscopy Reporton 025 Colonoscopy Report Normal [facility] MR/POSTOP.ANEon 02-20-2025 MR/POSTOP.ANE Normal [facility] MR/[id number] 02-20-2025 MR/POSTOPAN2 Normal [facility] Plastic Surgery Visit Report on 02-15-2025 Plastic Surgery Visit Report Normal [facility] H AND P Exam - Surgicalon H&P Exam - Surgical Normal [facility] MR/POSTOP.ANEon 02-13-2025 MR/POSTOP.ANE Normal [facility] MR/[id number] 02-13-2025 MR/POSTOPAN2 Normal [facility] Operative Reporton Operative Report Normal [facility] Breast imaging reportOrdered By: Pinky Ramires on 02-11-2025 Study report [facility] Imaging Services [address] [place], [place] [address] DIAG MAMM W/CAD, BILAT MR#: [id number] Acct: [id number] Name: FEDE LUIS Rep #: [id number] : [id number] From: Alfonso Ramires DO PCP: Dr. Carrillo Driscoll MD Status: MAKSIM DELEON Study:DIAG MAMM W/CAD, BILAT Date of Exam: 02/11/25 Exam# [id number] Ordering Dr: Gerardo Cooley DO EXAM: DIAG [...] be mailed to the patient. Reading Location: [id number] CC: Dr. Gerardo Cooley DO; Dr. Carrillo Driscoll MD ~ [employer] Project Manager: Signed [facility] DIAG MAMM W/CAD, BILATon DIAG MAMM W/CAD, BILAT Normal [facility] Plastic Surgery Visit Report on 02-05-2025 Plastic Surgery Visit Report Normal [facility] Orthopedic Visit Reporton Orthopedic Visit Report Normal [facility] Wrist min 3 Viewson 01-26-20 25 Wrist min 3 Views Normal [facility] Cerv Spine 2 or 3 Viewson Cerv Spine 2 or 3 Views Normal [facility] Absolute lymphocyte countOrd ered By: Carrillo Driscoll on 01-03-2025 Lymphocytes Auto (Unsp spec) [#/Vol] 1.77 10*3/uL 0.83-4.51 [facility] Absolute neutrophil countOrd ered By: Carrillo Driscoll on 01-03-2025 Neutrophils (Bld) [#/Vol] 3.8 10*3/uL 2.0-7.7 [facility] Anion gap in Serum or Plasma Ordered By: Carrillo Driscoll on 01-03-2025 Anion gap [Moles/Vol] 12 mmol/L 5-15 [facility] Automated lymphocyte count a s percentage of total leukocytesOrdered By: Carrillo Driscoll on 01-03-2025 Lymphocytes/100 WBC Auto (Unsp spec) 28.7 % 19-41 [facility] BUN/creatinine ratioOrdered By: Carrillo Driscoll on 01-03-2025 Urea nitrogen/Creatinine [Mass ratio] 46.4 mg/mg High 10-20 [facility] Basophil percentageOrdered B y: Carrillo Dricsoll on 01-03-2025 Basophils/100 WBC (Bld) 1.3 % High 0-1 [facility] Bilirubin, totalOrdered By: Carrillo Driscoll on 01-03-2025 Bilirubin [Mass/Vol] 0.32 mg/dL 0.00-1.30 [facility] CBC W/Diff, Automatedon 12-12 Absolute Lymph 1.77 X10 3/uL Normal 0.83-4.51 [facility] Comment on above: Performed By: #### L 500.4050, L100.0100, L500.4100, L501.9520 ####[facility] [address] [place], [address] Absolute Neut 3.8 X10 3/uL Normal 2.0-7.7 [facility] Comment on above: Performed By: #### L 500.4050, L100.0100, L500.4100, L501.9520 ####[facility] [address] [place], [address] Basophils/100 WBC (Bld) 1.3 % High 0-1 [facility] Comment on above: Performed By: #### L 500.4050, L100.0100, L500.4100, L501.9520 ####[facility] [address] [place], [address] Eosinophils/100 WBC (Bld) 0.3 % Normal 0-5 [facility] Comment on above: Performed By: #### L 500.4050, L100.0100, L500.4100, L501.9520 ####[facility] [address] [place], [address] Erythrocyte distribution width (RBC) [Ratio] 12.6 % Normal 11.6-14.6 [facility] Comment on above: Performed By: #### L 500.4050, L100.0100, L500.4100, L501.9520 ####[facility] [address] [place], [address] Hematocrit (Bld) [Volume fraction] 39.5 % Normal 37-47 [facility] Comment on above: Performed By: #### L 500.4050, L100.0100, L500.4100, L501.9520 ####[facility] [address] [place], [address] Hemoglobin (Bld) [Mass/Vol] 13.5 g/dL Normal 12.0-15.0 [facility] Comment on above: Performed By: #### L 500.4050, L100.0100, L500.4100, L501.9520 ####[facility] [address] [place], [address] IG% 0.200 Normal 0.0-0.9 [facility] Comment on above: Result Comment: IG% - Immature Granulocytes (promyelocytes, myelocytes andmetamyelocytes) > 1% indicates that a LEFT SHIFT is Present. Performed By: #### L 500.4050, L100.0100, L500.4100, L501.9520 ####[facility] [address] [place], [address] Lymphocytes/100 WBC (Bld) 28.7 % Normal 19-41 [facility] Comment on above: Performed By: #### L 500.4050, L100.0100, L500.4100, L501.9520 ####[facility] [address] [place], [address] MCH (RBC) [Entitic mass] 31.7 pg Normal 27.0-32.0 [facility] Comment on above: Performed By: #### L 500.4050, L100.0100, L500.4100, L501.9520 ####[facility] [address] [place], [address] MCHC (RBC) [Mass/Vol] 34.2 g/dL Normal 32-36 [facility] Comment on above: Performed By: #### L 500.4050, L100.0100, L500.4100, L501.9520 ####[facility] [address] [place], [address] MCV (RBC) [Entitic vol] 92.7 fL Normal 81-99 [facility] Comment on above: Performed By: #### L 500.4050, L100.0100, L500.4100, L501.9520 ####[facility] [address] [place], [address] Monocytes/100 WBC (Bld) 8.1 % Normal 0-10 [facility] Comment on above: Performed By: #### L 500.4050, L100.0100, L500.4100, L501.9520 ####[facility] [address] [place], [address] Neutrophils/100 WBC (Bld) 61.4 % Normal 47-70 [facility] Comment on above: Performed By: #### L 500.4050, L100.0100, L500.4100, L501.9520 ####[facility] [address] [place], [address] Nucleated RBC (Bld) [#/Vol] 0 10*3/uL Normal 0-5 [facility] Comment on above: Performed By: #### L 500.4050, L100.0100, L500.4100, L501.9520 ####[facility] [address] [place], [address] Platelet mean volume (Bld) [Entitic vol] 9.3 fL Normal 6.2-12.0 [facility] Comment on above: Performed By: #### L 500.4050, L100.0100, L500.4100, L501.9520 ####[facility] [address] [place], [address] Platelets (Bld) [#/Vol] 382 10*3/uL Normal 150-450 [facility] Comment on above: Performed By: #### L 500.4050, L100.0100, L500.4100, L501.9520 ####[facility] [address] [place], [address] RBC (Bld) [#/Vol] 4.26 10*6/uL Normal 4.2-5.4 [facility] Comment on above: Performed By: #### L 500.4050, L100.0100, L500.4100, L501.9520 ####[facility] [address] [place], [address] RDW SD 42.6 fl Normal 35.1-43.9 [facility] Comment on above: Performed By: #### L 500.4050, L100.0100, L500.4100, L501.9520 ####[facility] [address] [place], [address] WBC (Bld) [#/Vol] 6.2 10*3/uL Normal 4.4-11.0 [facility] Comment on above: Performed By: #### L 500.4050, L100.0100, L500.4100, L501.9520 ####[facility] [address] [place], [address] Calculated very low density lipoprotein (VLDL) cholesterol measurementOrdered By: Carrillo Driscoll on 01-03-2025 Calculated very low density lipoprotein (VLDL) cholesterol measurement 22 mg/dL 5-40 [facility] Carbon dioxide, total [Moles /volume] in Central venous bloodOrdered By: Carrillo Driscoll on 01-03-2025 CO2 [Moles/Vol] 24.0 mmol/L 21.0-32.0 [facility] Chloride assayOrdered By: Jeremy Driscoll on 01-03-2025 Chloride [Moles/Vol] 103 mmol/L 98-108 [facility] Comprehensive Metabolic Prof ilon 01-03-2025 Albumin [Mass/Vol] 4.7 g/dL Normal 3.5-5.0 [facility] Comment on above: Performed By: #### L 500.4050, L100.0100, L500.4100, L501.9520 ####[facility] [address] [place], [address] Albumin/Globulin [Mass ratio] 1.5 {ratio} Normal 0.9-2.4 [facility] Comment on above: Performed By: #### L 500.4050, L100.0100, L500.4100, L501.9520 ####[facility] [address] [place], [address] ALK PHOS 94 U/L Normal 35-104 [facility] Comment on above: Performed By: #### L 500.4050, L100.0100, L500.4100, L501.9520 ####[facility] [address] [place], [address] ALT [Catalytic activity/Vol] 25 U/L Normal <=34 [facility] Comment on above: Performed By: #### L 500.4050, L100.0100, L500.4100, L501.9520 ####[facility] [address] [place], [address] AST [Catalytic activity/Vol] 44 U/L High <=31 [facility] Comment on above: Performed By: #### L 500.4050, L100.0100, L500.4100, [id number] ####[facility] [address] [place], [address] Bilirubin [Mass/Vol] 0.32 mg/dL Normal 0.00-1.30 [facility] Comment on above: Performed By: #### L 500.4050, L100.0100, L500.4100, [id number] ####[facility] [address], [address] BUN/CRE 46.4 RATIO High 10-20 [facility] Comment on above: Performed By: #### L 500.4050, L100.0100, L500.4100, [id number] ####[facility] [address] [place], [address] Calcium [Mass/Vol] 10.1 mg/dL Normal 7.6-11.0 [facility] Comment on above: Performed By: #### L 500.4050, L100.0100, L500.4100, [id number] ####[facility] [address] [place], [address] Chloride [Moles/Vol] 103 mmol/L Normal 98-108 [facility] Comment on above: Performed By: #### L 500.4050, L100.0100, L500.4100, [id number] ####[facility] [address] [place], [address] CO2 [Moles/Vol] 24.0 mmol/L Normal 21.0-32.0 [facility] Comment on above: Performed By: #### L 500.4050, L100.0100, L500.4100, [id number] ####[facility] [address] [place], [address] Creatinine [Mass/Vol] 0.56 mg/dL Low 0.70-1.20 [facility] Comment on above: Performed By: #### L 500.4050, L100.0100, L500.4100, [id number] ####[facility] [address] [place], [address] GAP 12 Normal 5-15 [facility] Comment on above: Performed By: #### L 500.4050, L100.0100, L500.4100, L501.9520 ####[facility] [address] [place], [address] GFR/1.73 sq M.predicted among non-blacks MDRD (S/P/Bld) [Vol rate/Area] 107 mL/min/{1.73_m2} Normal >60 [facility] Comment on above: Result Comment: mL/m in/1.73m2 CKD-EPI Creatinine Equation (2020) Performed By: #### L 500.4050, L100.0100, L500.4100, L501.9520 ####[facility] [address] [place], [address] Globulin (S) [Mass/Vol] 3.1 g/dL Normal 2.2-4.2 [facility] Comment on above: Performed By: #### L 500.4050, L100.0100, L500.4100, L501.9520 ####[facility] [address] [place], [address] Glucose [Mass/Vol] 106 mg/dL High 70-99 [facility] Comment on above: Performed By: #### L 500.4050, L100.0100, L500.4100, L501.9520 ####[facility] [address] [place], [address] Potassium [Moles/Vol] 4.7 mmol/L Normal 3.3-5.1 [facility] Comment on above: Performed By: #### L 500.4050, L100.0100, L500.4100, L501.9520 ####[facility] [address] [place], [address] Sodium [Moles/Vol] 139 mmol/L Normal 133-145 [facility] Comment on above: Performed By: #### L 500.4050, L100.0100, L500.4100, L501.9520 ####[facility] [address] [place], [address] T PROT 7.8 g/dL Normal 5.9-8.4 [facility] Comment on above: Performed By: #### L 500.4050, L100.0100, L500.4100, L501.9520 ####[facility] [address] [place], [address] Urea nitrogen [Mass/Vol] 26 mg/dL High 4-19 [facility] Comment on above: Performed By: #### L 500.4050, L100.0100, L500.4100, L501.9520 ####[facility] [address] [place], [address] Eosinophil percentageOrdered By: Carrillo Driscoll on 01-03-2025 Eosinophils/100 WBC (Bld) 0.3 % 0-5 [facility] Erythrocyte distribution wid th ratioOrdered By: Carrillo Driscoll on 01-03-2025 Erythrocyte distribution width (RBC) [Ratio] 12.6 % 11.6-14.6 [facility] Erythrocyte distribution wid th standard deviationOrdered By: Carrillo Driscoll on 01-03-2025 Erythrocyte distribution width (RBC) [Ratio] 42.6 fl 35.1-43.9 [facility] Glomerular filtration rate ( GFR) estimation/1.73 sq m using serum, plasma, or whole bOrdered By: Carrillo Driscoll on 01-03-2025 GFR/1.73 sq M.predicted among non-blacks MDRD (S/P/Bld) [Vol rate/Area] 107 mL/min/{1.73_m2} >60 [facility] Comment on above: mL/min/1.73m2 CKD-EP I Creatinine Equation (2020) Hematocrit Auto (Bld) [Volum e fraction]Ordered By: Carrillo Driscoll on 01-03-2025 Hematocrit (Bld) [Volume fraction] 39.5 % 37-47 [facility] Hemoglobin measurementOrdere d By: Carrillo Driscoll on 01-03-2025 Hemoglobin (Bld) [Mass/Vol] 13.5 g/dL 12.0-15.0 [facility] Immature granulocytes/100 WB C Auto (Bld)Ordered By: Carrillo Driscoll on 01-03-2025 Immature granulocytes/100 WBC (Bld) 0.200 % 0.0-0.9 [facility] Comment on above: IG% - Immature Granu locytes (promyelocytes, myelocytes and metamyelocytes) > 1% indicates that a LEFT SHIFT is Present. LDL calc ser/plasOrdered By: Carrillo Driscoll on 01-03-2025 Cholesterol in LDL [Mass/Vol] 221 mg/dL [facility] Comment on above: Tjclnpyzqi=175-584 m g/dL & Higher Ytxo=224 mg/dL or greater Laboratory - Chemistry and C hemistry - challengeOrdered By: Carrillo Driscoll on 01-03-2025 AST [Catalytic activity/Vol] 44 U/L High <32 [facility] Lipid Profileon 01-03-2025 CHOL:HDL 4.74 Normal [facility] Comment on above: Performed By: #### L 500.4050, L100.0100, L500.4100, L501.9520 ####[facility] [address] [place], [place], [address] Cholesterol [Mass/Vol] 307 mg/dL High <=200 [facility] Comment on above: Result Comment: Chol esterol level, Desirable <200 mg/dLBorderline high cholesterol 200-239 mg/dLHigh cholesterol >=240 mg/dLRecommendations of the NCEP Adult Treatment Panel for thefollowing risk-cutoff thresholds for the [place] Americanp[place]. Performed By: #### L 500.4050, L100.0100, L500.4100, L501.9520 ####[facility] [address] [place], [address] Cholesterol in HDL [Mass/Vol] 65 mg/dL Normal [facility] Comment on above: Result Comment: Brianna onal Cholesterol Education Program (NCEP) guidelines:<40 mg/dL: Low HDL-cholesterol (major risk factor for CHD)>= 60 mg/dL: High HDL-cholesterol (negative risk factor forCHD)HDL-cholesterol is affected by a number of factors, e.g.smoking, exercise, hormones, sex and age. Performed By: #### L 500.4050, L100.0100, L500.4100, L501.9520 ####[facility] [address] [place], [address] Cholesterol in LDL [Mass/Vol] 221 mg/dL Normal [facility] Comment on above: Result Comment: Bord kdjohh=584-872 mg/dL Higher Quly=890 mg/dL or greater Performed By: #### L 500.4050, L100.0100, L500.4100, L501.9520 ####[facility] [address] [place], [address] Cholesterol in VLDL [Mass/Vol] 22 mg/dL Normal 5-40 [facility] Comment on above: Performed By: #### L 500.4050, L100.0100, L500.4100, L501.9520 ####[facility] [address] [place], [address] Triglyceride [Mass/Vol] 108 mg/dL Normal [facility] Comment on above: Result Comment: The drugs N-Acetylcysteine and Metamizole may falselydepress this assay.Normal range: <150 mg/dLBorderline High: 150-199 mg/dLHigh: 200-499 mg/dLVery High: >500 mg/dL Performed By: #### L 500.4050, L100.0100, L500.4100, L501.9520 ####[facility] [address] [place], [address] MCV (mean corpuscular volume ) determinationOrdered By: Carrillo Driscoll on 01-03-2025 MCV (RBC) [Entitic vol] 92.7 fL 81-99 [facility] Mean corpuscular hemoglobin (MCH) determinationOrdered By: Carrillo Driscoll on 01-03-2025 MCH (RBC) [Entitic mass] 31.7 pg 27.0-32.0 [facility] Mean corpuscular hemoglobin concentration (MCHC) determinationOrdered By: Carrillo Driscoll on 01-03-2025 MCHC (RBC) [Mass/Vol] 34.2 g/dL 32-36 [facility] Mean platelet volume determi nationOrdered By: Carrillo Driscoll on 01-03-2025 Platelet mean volume (Bld) [Entitic vol] 9.3 fL 6.2-12.0 [facility] Monocyte percentageOrdered B y: Carrillo Driscoll on 01-03-2025 Monocytes/100 WBC (Bld) 8.1 % 0-10 [facility] Neutrophil percentageOrdered By: Carrillo Driscoll on 01-03-2025 Neutrophils/100 WBC (Bld) 61.4 % 47-70 [facility] Nucleated red blood cell per centageOrdered By: Carrillo Driscoll 01-03-2025 Nucleated RBC/100 WBC (Bld) [Ratio] 0 % 0-5 [facility] Platelet countOrdered By: Jeremy Driscoll on 01-03-2025 Platelets (Bld) [#/Vol] 382 10*3/uL 150-450 [facility] Potassium measurement (mass/ volume)Ordered By: Carrillo Driscoll on 01-03-2025 Potassium (Unsp spec) [Mass/Vol] 4.7 mmol/L 3.3-5.1 [facility] RBC Auto (Bld) [#/Vol]Ordere d By: Carrillo Driscoll on 01-03-2025 RBC (Bld) [#/Vol] 4.26 10*6/uL 4.2-5.4 [facility] Screening total cholesterol/ high density lipoprotein (HDL) cholesterol ratioOrdered By: Carrillo Driscoll 01-03-2025 Cholesterol.total/Choles terol in HDL [Mass ratio] 4.74 {ratio} [facility] Serum creatinine measurement (mass/volume)Ordered By: Carrillo Driscoll on 01-03-2025 Creatinine [Mass/Vol] 0.56 mg/dL Low 0.70-1.20 [facility] Serum globulin measurementOr dered By: Carrillo Driscoll on 01-03-2025 Globulin (S) [Mass/Vol] 3.1 g/dL 2.2-4.2 [facility] Serum glucose measurement (m ass/volume)Ordered By: Carrillo Driscoll 01-03-2025 Glucose [Mass/Vol] 106 mg/dL High 70-99 [facility] Serum or plasma alanine ho otransferase (ALT) measurementOrdered By: Carrillo Driscoll 01-03-2025 ALT [Catalytic activity/Vol] 25 U/L <35 [facility] Serum or plasma albumin royal urement (mass/volume)Ordered By: Carrillo Driscoll 01-03-2025 Albumin [Mass/Vol] 4.7 g/dL 3.5-5.0 [facility] Serum or plasma albumin/glob ulin mass ratioOrdered By: Carrillo Driscoll 01-03-2025 Albumin/Globulin [Mass ratio] 1.5 {ratio} 0.9-2.4 [facility] Serum or plasma alkaline ida sphatase measurementOrdered By: Carrillo Driscoll 01-03-2025 ALP [Catalytic activity/Vol] 94 U/L 35-104 [facility] Serum or plasma calcium royal urement (mass/volume)Ordered By: Carrillo Driscoll 01-03-2025 Calcium [Mass/Vol] 10.1 mg/dL 7.6-11.0 [facility] Serum or plasma cholesterol in HDL measurement (mass/volume)Ordered By: Carrillo Driscoll 01-03-2025 Cholesterol in HDL [Mass/Vol] 65 mg/dL >40 [facility] Comment on above: National Cholesterol Education Program (NCEP) guidelines:<40 mg/dL: Low HDL-cholesterol (major risk factor for CHD)>= 60 mg/dL: High HDL-cholesterol (negative risk factor for CHD)HDL-cholesterol is affected by a number of factors, e.g. smoking, exercise, hormones, sex and age. Serum or plasma cholesterol measurement (mass/volume)Ordered By: Carrillo Driscoll 01-03-2025 Cholesterol [Mass/Vol] 307 mg/dL High <201 [facility] Comment on above: Cholesterol level, D esirable <200 mg/dLBorderline high cholesterol 200-239 mg/dLHigh cholesterol >=240 mg/dLRecommendations of the NCEP Adult Treatment Panel for the following risk-cutoff thresholds for the [place] population. Serum or plasma urea nitroge n measurement (mass/volume)Ordered By: Carrillo Driscoll on 01-03-2025 Urea nitrogen [Mass/Vol] 26 mg/dL High 4-19 [facility] Sodium levelOrdered By: Carrillo Driscoll on 01-03-2025 Sodium [Moles/Vol] 139 mmol/L 133-145 [facility] TSH DL <= 0.005 mIU/L QnOrde red By: Carrillo Driscoll on 01-03-2025 TSH Qn 1.610 uIU/mL 0.300-4.200 [facility] Thyroid Stim Hormone (TSH)on 01-03-2025 TSH 1.610 uIU/mL Normal 0.300-4.200 [facility] Comment on above: Performed By: #### L 500.4050, L100.0100, L500.4100, L501.9520 ####[facility] [address] [place], [address] Total proteinOrdered By: Carrillo Driscoll on 01-03-2025 Protein [Mass/Vol] 7.8 g/dL 5.9-8.4 [facility] Triglycerides measurementOrd ered By: Carrillo Driscoll on 01-03-2025 Triglyceride [Mass/Vol] 108 mg/dL <199 [facility] Comment on above: The drugs N-Acetylcy steine and Metamizole may falsely depress this assay. Normal range: <150 mg/dLBorderline High: 150-199 mg/dLHigh: 200-499 mg/dLVery High: >500 mg/dL White blood cell (WBC) count Ordered By: Carrillo Driscoll on 01-03-2025 WBC (Bld) [#/Vol] 6.2 10*3/uL 4.4-11.0 [facility] PT D/C Summary (1)on 025 PT D/C Summary (1) Normal [facility] Breast Limited Unilateralon 12-06-2024 Breast Limited Unilateral Normal [facility] Low Dose CT Lung Screeningon 12-04-[address] Lung Screening Normal [facility] Oncology Visit Reporton 11-11 Oncology Visit Report Normal [facility] Surgery Visit Reporton 11-30 Surgery Visit Report Normal [facility] Inital Evaluation (1) - PTon 11-27-2024 Inital Evaluation (1) - PT Normal [facility] Oncology Visit Reporton 11-10 Oncology Visit Report Normal [facility] Breast Limited Unilateralon 11-23-2024 Breast Limited Unilateral Normal [facility] Breast imaging reportOrdered By: Vidal Álvarez on 11-23-2024 Study report [facility] Imaging Services [address] [place] [address] DIAG MAMM W/CAD, UNILAT MR#: [id number] Acct: [id number] Name: FEDE LUIS Rep #: [id number] : [id number] F [id number] From: [place] Álvarez MD PCP: Dr. Carrillo Driscoll MD Status: MAKSIM DELEON Study:DIAG MAMM W/CAD, UNILAT Date of Exam: 11/23/24 Exam# [id number] Ordering Dr: Renetta Guillory NP CONFERENCE TRANSLATOR-C PROCEDURE: DIAG MAMM W/CAD, UNILAT REASON FOR [...] Ultrasound Recommended BI-RADS category 0. Reading Location: [place] [address] CC: NOLAN Oden; Dr. Carrillo Driscoll MD ~ It Security Project Manager: Signed [facility] DIAG MAMM W/CAD, UNILATon DIAG MAMM W/CAD, UNILAT Normal [facility] Absolute lymphocyte countOrd ered By: Renetta Oden on 11-19-2024 Lymphocytes Auto (Unsp spec) [#/Vol] 2.23 10*3/uL 0.83-4.51 [facility] Absolute neutrophil countOrd ered By: Renetta Oden on 11-19-2024 Neutrophils (Bld) [#/Vol] 4.3 10*3/uL 2.0-7.7 [facility] Anion gap in Serum or Plasma Ordered By: Renetta Oden on 11-19-2024 Anion gap [Moles/Vol] 13 mmol/L 5-15 [facility] Automated lymphocyte count a s percentage of total leukocytesOrdered By: Renetta Oden on 11-19-2024 Lymphocytes/100 WBC Auto (Unsp spec) 32.0 % - [facility] BUN/creatinine ratioOrdered By: Renetta Oden on 11-19-2024 Urea nitrogen/Creatinine [Mass ratio] 23.6 mg/mg High 10- [facility] Basophil percentageOrdered B y: Renetta Oden on 11-19-2024 Basophils/100 WBC (Bld) 1.0 % 0- [facility] Bilirubin, totalOrdered By: Renetta Oden on 11-19-2024 Bilirubin [Mass/Vol] 0.27 mg/dL 0.00-1.30 [facility] CBC W/Diff, Automatedon 11-10 Absolute Lymph 2.23 X10 3/uL Normal 0.83-4.51 [facility] Comment on above: Performed By: #### L 500.4050, L100.0100 ####[facility] [address] [place], [address] Absolute Neut 4.3 X10 3/uL Normal 2.0-7.7 [facility] Comment on above: Performed By: #### L 500.4050, L100.0100 ####[facility] [address] [place], [address] Basophils/100 WBC (Bld) 1.0 % Normal 0-1 [facility] Comment on above: Performed By: #### L 500.4050, L100.0100 ####[facility] [address] [place], [address] Eosinophils/100 WBC (Bld) 0.4 % Normal 0-5 [facility] Comment on above: Performed By: #### L 500.4050, L100.0100 ####[facility] [address] [place], [address] Erythrocyte distribution width (RBC) [Ratio] 12.2 % Normal 11.6-14.6 [facility] Comment on above: Performed By: #### L 500.4050, L100.0100 ####[facility] [address] [place], [address] Hematocrit (Bld) [Volume fraction] 37.6 % Normal 37-47 [facility] Comment on above: Performed By: #### L 500.4050, L100.0100 ####[facility] [address] [place], [address] Hemoglobin (Bld) [Mass/Vol] 12.8 g/dL Normal 12.0-15.0 [facility] Comment on above: Performed By: #### L 500.4050, L100.0100 ####[facility] [address] [place], [address] IG% 0.600 Normal 0.0-0.9 [facility] Comment on above: Result Comment: IG% - Immature Granulocytes (promyelocytes, myelocytes andmetamyelocytes) > 1% indicates that a LEFT SHIFT is Present. Performed By: #### L 500.4050, L100.0100 ####[facility] [address] [place], [address] Lymphocytes/100 WBC (Bld) 32.0 % Normal 19-41 [facility] Comment on above: Performed By: #### L 500.4050, L100.0100 ####[facility] [address] [place], [address] MCH (RBC) [Entitic mass] 31.1 pg Normal 27.0-32.0 [facility] Comment on above: Performed By: #### L 500.4050, L100.0100 ####[facility] [address] [place], [address] MCHC (RBC) [Mass/Vol] 34.0 g/dL Normal 32-36 [facility] Comment on above: Performed By: #### L 500.4050, L100.0100 ####[facility] [address] [place], [address] MCV (RBC) [Entitic vol] 91.5 fL Normal 81-99 [facility] Comment on above: Performed By: #### L 500.4050, L100.0100 ####[facility] [address] [place], [address] Monocytes/100 WBC (Bld) 4.3 % Normal 0-10 [facility] Comment on above: Performed By: #### L 500.4050, L100.0100 ####[facility] [address] [place], [address] Neutrophils/100 WBC (Bld) 61.7 % Normal 47-70 [facility] Comment on above: Performed By: #### L 500.4050, L100.0100 ####[facility] [address] [place], [address] Nucleated RBC (Bld) [#/Vol] 0 10*3/uL Normal 0-5 [facility] Comment on above: Performed By: #### L 500.4050, L100.0100 ####[facility] [address] [place], [address] Platelet mean volume (Bld) [Entitic vol] 9.8 fL Normal 6.2-12.0 [facility] Comment on above: Performed By: #### L 500.4050, L100.0100 ####[facility] [address] [place], [address] Platelets (Bld) [#/Vol] 397 10*3/uL Normal 150-450 [facility] Comment on above: Performed By: #### L 500.4050, L100.0100 ####[facility] [address] [place], [address] RBC (Bld) [#/Vol] 4.11 10*6/uL Low 4.2-5.4 [facility] Comment on above: Performed By: #### L 500.4050, L100.0100 ####[facility] [address] [place], [address] RDW SD 40.7 fl Normal 35.1-43.9 [facility] Comment on above: Performed By: #### L 500.4050, L100.0100 ####[facility] [address] [place], [address] WBC (Bld) [#/Vol] 7.0 10*3/uL Normal 4.4-11.0 [facility] Comment on above: Performed By: #### L 500.4050, L100.0100 ####[facility] [address] [place], [address] Carbon dioxide, total [Moles /volume] in Central venous bloodOrdered By: Renetta Oden on 11-19-2024 CO2 [Moles/Vol] 23.7 mmol/L 21.0-32.0 [facility] Chloride assayOrdered By: Ty ra Oden on 11-19-2024 Chloride [Moles/Vol] 104 mmol/L 98-108 [facility] Comprehensive Metabolic Prof ilon 11-19-2024 Albumin [Mass/Vol] 4.8 g/dL Normal 3.5-5.0 [facility] Comment on above: Performed By: #### L 500.4050, L100.0100 ####[facility] [address] [place], [address] Albumin/Globulin [Mass ratio] 1.7 {ratio} Normal 0.9-2.4 [facility] Comment on above: Performed By: #### L 500.4050, L100.0100 ####[facility] [address] [place], [address] ALK PHOS 95 U/L Normal 35-104 [facility] Comment on above: Performed By: #### L 500.4050, L100.0100 ####[facility] [address] [place], [address] ALT [Catalytic activity/Vol] 30 U/L Normal <=34 [facility] Comment on above: Performed By: #### L 500.4050, L100.0100 ####[facility] [address] [place], [address] AST [Catalytic activity/Vol] 22 U/L Normal <=31 [facility] Comment on above: Performed By: #### L 500.4050, L100.0100 ####[facility] [address] [place], [address] Bilirubin [Mass/Vol] 0.27 mg/dL Normal 0.00-1.30 [facility] Comment on above: Performed By: #### L 500.4050, L100.0100 ####[facility] [address] [place], [address] BUN/CRE 23.6 RATIO High 10-20 [facility] Comment on above: Performed By: #### L 500.4050, L100.0100 ####[facility] [address] [place], [address] Calcium [Mass/Vol] 9.9 mg/dL Normal 7.6-11.0 [facility] Comment on above: Performed By: #### L 500.4050, L100.0100 ####[facility] [address] [place], [address] Chloride [Moles/Vol] 104 mmol/L Normal 98-108 [facility] Comment on above: Performed By: #### L 500.4050, L100.0100 ####[facility] [address] [place], [address] CO2 [Moles/Vol] 23.7 mmol/L Normal 21.0-32.0 [facility] Comment on above: Performed By: #### L 500.4050, L100.0100 ####[facility] [address] [place], [address] Creatinine [Mass/Vol] 0.55 mg/dL Low 0.70-1.20 [facility] Comment on above: Performed By: #### L 500.4050, L100.0100 ####[facility] [address] [place], [address] ECRCL 115.21 ml/min Normal 50-250 [facility] Comment on above: Performed By: #### L 500.4050, L100.0100 ####[facility] [address] [place], [address] GAP 13 Normal 5-15 [facility] Comment on above: Performed By: #### L 500.4050, L100.0100 ####[facility] [address] [place], [address] GFR/1.73 sq M.predicted among non-blacks MDRD (S/P/Bld) [Vol rate/Area] 108 mL/min/{1.73_m2} Normal >60 [facility] Comment on above: Result Comment: mL/m in/1.73m2 CKD-EPI Creatinine Equation (2020) Performed By: #### L 500.4050, L100.0100 ####[facility] [address] [place], [address] Globulin (S) [Mass/Vol] 2.9 g/dL Normal 2.2-4.2 [facility] Comment on above: Performed By: #### L 500.4050, L100.0100 ####[facility] [address] [place], [address] Glucose [Mass/Vol] 93 mg/dL Normal 70-99 [facility] Comment on above: Performed By: #### L 500.4050, L100.0100 ####[facility] [address] [place], [address] Potassium [Moles/Vol] 3.6 mmol/L Normal 3.3-5.1 [facility] Comment on above: Performed By: #### L 500.4050, L100.0100 ####[facility] [address] [place], [address] Sodium [Moles/Vol] 141 mmol/L Normal 133-145 [facility] Comment on above: Performed By: #### L 500.4050, L100.0100 ####[facility] [address] [place], [address] T PROT 7.7 g/dL Normal 5.9-8.4 [facility] Comment on above: Performed By: #### L 500.4050, L100.0100 ####[facility] [address] [place], [place], [address] Urea nitrogen [Mass/Vol] 13 mg/dL Normal 4-19 [facility] Comment on above: Performed By: #### L 500.4050, L100.0100 ####[facility] [address] [place], [address] Eosinophil percentageOrdered By: Renetta Oden on 11-19-2024 Eosinophils/100 WBC (Bld) 0.4 % 0-5 [facility] Erythrocyte distribution wid th ratioOrdered By: Renetta Oden on 11-19-2024 Erythrocyte distribution width (RBC) [Ratio] 12.2 % 11.6-14.6 [facility] Erythrocyte distribution wid th standard deviationOrdered By: Renetta Oden on 11-19-2024 Erythrocyte distribution width (RBC) [Entitic vol] 40.7 fL 35.1-43.9 [facility] Erythrocyte distribution width (RBC) [Ratio] 40.7 fl 35.1-43.9 [facility] Estimation of creatinine carlyle aranceOrdered By: Renetta Oden on 11-19-2024 Estimated Creatinine Clearance Calc 115.21 ml/min 50-250 [facility] GFR/1.73 sq M.predicted shona g non-blacks MDRD (S/P/Bld) [Vol rate/Area]Ordered By: Renetta Oden on 11-19-2024 Estimated GFR (MDRD) Non-Af Amer 108 >60 [facility] Comment on above: mL/min/1.73m2 CKD-EP I Creatinine Equation (2020) Glomerular filtration rate ( GFR) estimation/1.73 sq m using serum, plasma, or whole bOrdered By: Renetta Oden on 11-19-2024 GFR/1.73 sq M.predicted among non-blacks MDRD (S/P/Bld) [Vol rate/Area] 108 mL/min/{1.73_m2} >60 [facility] Comment on above: mL/min/1.73m2 CKD-EP I Creatinine Equation (2020) Hematocrit Auto (Bld) [Volum e fraction]Ordered By: Renetta Oden on 11-19-2024 Hematocrit (Bld) [Volume fraction] 37.6 % 37-47 [facility] Hemoglobin measurementOrdere d By: Renetta Oden on 11-19-2024 Hemoglobin (Bld) [Mass/Vol] 12.8 g/dL 12.0-15.0 [facility] Immature granulocytes/100 WB C Auto (Bld)Ordered By: Renetta Oden on 11-19-2024 Immature granulocytes/100 WBC (Bld) 0.600 % 0.0-0.9 [facility] Comment on above: IG% - Immature Granu locytes (promyelocytes, myelocytes and metamyelocytes) > 1% indicates that a LEFT SHIFT is Present. Laboratory - Chemistry and C hemistry - challengeOrdered By: Renetta Oden on 11-19-2024 AST [Catalytic activity/Vol] 22 U/L <32 [facility] Lymphocytes Auto (Unsp spec) [#/Vol]Ordered By: Renetta Oden on 11-19-2024 Lymphocytes (Bld) [#/Vol] 2.23 10*3/uL 0.83-4.51 [facility] Lymphocytes/100 WBC Auto (Un sp spec)Ordered By: Renetta Oden on 11-19-2024 Lymphocytes/100 WBC (Bld) 32.0 % 19-41 [facility] MCV (mean corpuscular volume ) determinationOrdered By: Renetta Oden on 11-19-2024 MCV (RBC) [Entitic vol] 91.5 fL 81-99 [facility] Mean corpuscular hemoglobin (MCH) determinationOrdered By: Renetta Oden on 11-19-2024 MCH (RBC) [Entitic mass] 31.1 pg 27.0-32.0 [facility] Mean corpuscular hemoglobin concentration (MCHC) determinationOrdered By: Renetta Oden on 11-19-2024 MCHC (RBC) [Mass/Vol] 34.0 g/dL 32-36 [facility] Mean platelet volume determi nationOrdered By: Renetta Oden on 11-19-2024 Platelet mean volume (Bld) [Entitic vol] 9.8 fL 6.2-12.0 [facility] Monocyte percentageOrdered B y: Renetta PoeAkshat on 11-19-2024 Monocytes/100 WBC (Bld) 4.3 % 0-10 [facility] Neutrophil percentageOrdered By: Renetta PoeAkshat on 11-19-2024 Neutrophils/100 WBC (Bld) 61.7 % 47-70 [facility] Nucleated red blood cell per centageOrdered By: Renetta PoeAkshat on 11-19-2024 Nucleated RBC/100 WBC (Bld) [Ratio] 0 % 0-5 [facility] Oncology Visit Reporton 11-10 Oncology Visit Report Normal [facility] Platelet countOrdered By: Gage Oden on 11-19-2024 Platelets (Bld) [#/Vol] 397 10*3/uL 150-450 [facility] Potassium (Unsp spec) [Mass/ Vol]Ordered By: Renetta Oden on 11-19-2024 Potassium [Moles/Vol] 3.6 mmol/L 3.3-5.1 [facility] Potassium measurement (mass/ volume)Ordered By: Renetta PoeAkshat on 11-19-2024 Potassium (Unsp spec) [Mass/Vol] 3.6 mmol/L 3.3-5.1 [facility] RBC Auto (Bld) [#/Vol]Ordere d By: Renetta Oden on 11-19-2024 RBC (Bld) [#/Vol] 4.11 10*6/uL Low 4.2-5.4 [facility] Serum creatinine measurement (mass/volume)Ordered By: Renetta Oden on 11-19-2024 Creatinine [Mass/Vol] 0.55 mg/dL Low 0.70-1.20 [facility] Serum globulin measurementOr dered By: Renetta Oden on 11-19-2024 Globulin (S) [Mass/Vol] 2.9 g/dL 2.2-4.2 [facility] Serum glucose measurement (m ass/volume)Ordered By: Renetta PoeAkshat on 11-19-2024 Glucose [Mass/Vol] 93 mg/dL 70-99 [facility] Serum or plasma alanine ho otransferase (ALT) measurementOrdered By: Renetta Oden on 11-19-2024 ALT [Catalytic activity/Vol] 30 U/L <35 [facility] Serum or plasma albumin royal urement (mass/volume)Ordered By: Renetta Oden on 11-19-2024 Albumin [Mass/Vol] 4.8 g/dL 3.5-5.0 [facility] Serum or plasma albumin/glob ulin mass ratioOrdered By: Renetta Akshat on 11-19-2024 Albumin/Globulin [Mass ratio] 1.7 {ratio} 0.9-2.4 [facility] Serum or plasma alkaline ida sphatase measurementOrdered By: Renetta Oden on 11-19-2024 ALP [Catalytic activity/Vol] 95 U/L 35-104 [facility] Serum or plasma calcium royal urement (mass/volume)Ordered By: Renetta Oden on 11-19-2024 Calcium [Mass/Vol] 9.9 mg/dL 7.6-11.0 [facility] Serum or plasma urea nitroge n measurement (mass/volume)Ordered By: Renetta Oden on 11-19-2024 Urea nitrogen [Mass/Vol] 13 mg/dL 4-19 [facility] Sodium levelOrdered By: Renetta Oden on 11-19-2024 Sodium [Moles/Vol] 141 mmol/L 133-145 [facility] Total proteinOrdered By: Shelly Oden on 11-19-2024 Protein [Mass/Vol] 7.7 g/dL 5.9-8.4 [facility] White blood cell (WBC) count Ordered By: Renetta Oden on 11-19-2024 WBC (Bld) [#/Vol] 7.0 10*3/uL 4.4-11.0 [facility] PAP IG HPV APTIMA 16/18,45on 09-13-2024 ADEQ Comment Normal . [facility] Comment on above: Order Comment: Speci men Comment: [id number] Comment: Source.............Cervix;EndocervixSpecimen Comment: Other..............Post MenopausalSpecimen Comment: No. of containers..01 ThinPrep Vial Result Comment: Sati sfactory for evaluation. Endocervical component may not bedistinguished in cases of atrophy. Performed By: #### L 7400.0280 ####[facility] [address] [place], [place], [id number] COMM . Normal . [facility] Comment on above: Order Comment: Speci men Comment: [id number] Comment: Source.............Cervix;EndocervixSpecimen Comment: Other..............Post MenopausalSpecimen Comment: No. of containers..01 ThinPrep Vial Performed By: #### L 7400.0280 ####[facility] [address] [place], [place], [id number] COMMENT Comment Normal . [facility] Comment on above: Order Comment: Speci men Comment: [id number] Comment: Source.............Cervix;EndocervixSpecimen Comment: Other..............Post MenopausalSpecimen Comment: No. of containers..01 ThinPrep Vial Result Comment: This liquid based ThinPrep(R) pap test was screened withthe use of an image guided system. Performed By: #### L 7400.0280 ####[facility] [address] [place], [place], [id number] DIAG Comment Normal . [facility] Comment on above: Order Comment: Speci men Comment: [id number] Comment: Source.............Cervix;EndocervixSpecimen Comment: Other..............Post MenopausalSpecimen Comment: No. of containers..01 ThinPrep Vial Result Comment: NEGA TIVE FOR INTRAEPITHELIAL LESION OR MALIGNANCY.CELLULAR CHANGES ASSOCIATED WITH ATROPHY ARE PRESENT. Performed By: #### L 7400.0280 ####[facility] [address] [place], [address] HPV APTIMA, HR Negative Normal Negative [facility] Comment on above: Order Comment: Speci men Comment: [id number] Comment: Source.............Cervix;EndocervixSpecimen Comment: Other..............Post MenopausalSpecimen Comment: No. of containers..01 ThinPrep Vial Result Comment: This nucleic acid amplification test detects fourteen high-risk HPV types (16,18,31,33,35,39,45,51,52,56,58,59,66,68)without differentiation. Performed By: #### L 7400.0280 ####[facility] [address] [place], [address] HPV Ashly Rfx Comment Normal . [facility] Comment on above: Order Comment: Speci men Comment: [id number] Comment: Source.............Cervix;EndocervixSpecimen Comment: Other..............Post MenopausalSpecimen Comment: No. of containers..01 ThinPrep Vial Result Comment: Crit eria not met, HPV Genotype not performed.Performed at: - [address] [id number] Director: Sonia Morelos MD, Phone: [phone] at: =[facility] [address] [id number] Director: Sonia Morelos MD, Phone: [phone] Performed By: #### L 7400.0280 ####[facility] [address] [place], [address] PAPSMR Comment Normal . [facility] Comment on above: Order Comment: Speci men Comment: [id number] Comment: Source.............Cervix;EndocervixSpecimen Comment: Other..............Post MenopausalSpecimen Comment: No. of containers..01 ThinPrep Vial Result Comment: The Pap smear is a screening test designed to aid in thedetection of premalignant and malignant conditions of theuterine cervix. It is not a diagnostic procedure andshould not be used as the sole means of detecting cervicalcancer. Both false-positive and false-negative reports dooccur. Performed By: #### L 7400.0280 ####[facility] [address] [place], [place], [id number] PERFORM Comment Normal . [facility] Comment on above: Order Comment: Speci men Comment: [id number] Comment: Source.............Cervix;EndocervixSpecimen Comment: Other..............Post MenopausalSpecimen Comment: No. of containers..01 ThinPrep Vial Result Comment: Lucila Calzada Corporate Logistics Manager (ASCP) Performed By: #### L 7400.0280 ####[facility] [address] [place], [place], [id number] Radiation Oncology Visiton 0 09-13-2024 Radiation Oncology Visit Normal [facility] Tactical [employer] Party Cyto stain Nom (C vx/Vag) [ID]Ordered By: Miroslava Marcano on 09-10-2024 Pap Smear Performed By Comment . [facility] Comment on above: Jeri Calzada Cyto technologist (ASCP) Cytology report Cyto stain D oc (Cvx/Vag)Ordered By: Miroslava Marcano on 09-10-2024 Thin Prep Pap Smear Comment . [facility] Comment on above: The Pap smear is [...] 09-10-2024 HPV Genotype Special Info Comment . [facility] Comment on above: Criteria not met, HP V Genotype not performed.Performed at: - [facility] [id number] Director: Sonia Morelos MD, Phone: [phone] at: =G - [facility] [address] [id number] Director: Sonia Morelos MD, Phone: [phone] HPV 16+18+31+33+35+39+45+51+ 52+56+58+59+66+68 DNA Probe+sig amp Ql (Cvx)Ordered By: Miroslava Marcano on 09-10-2024 Human Papillomavirus High Risk Negative Negative [facility] Comment on above: This nucleic acid am plification test detects fourteen high-risk HPV types (16,18,31,33,35,39,45,51,52,56,58,59,66,68)without differentiation. Image-guided ThinPrep PapOrd ered By: Miroslava Marcano on 09-10-2024 Pap Smear Note Comment . [facility] Comment on above: This liquid based Th inPrep(R) pap test was screened withthe use of an image guided system. Image-guided liquid-based Pa pOrdered By: Miroslava Marcano on 09-10-2024 Pap Smear Diagnosis Comment . [facility] Comment on above: NEGATIVE FOR INTRAEP ITHELIAL LESION OR MALIGNANCY.CELLULAR CHANGES ASSOCIATED WITH ATROPHY ARE PRESENT. Service comment (Unsp spec) [Interp]Ordered By: Miroslava Marcano on 09-10-2024 Pap Smear Comment (3) . . [facility] Student Driving Instructor Office Visit Reporton 09-03-2024 Student Driving Instructor Office Visit Report Normal [facility] Surgery Visit Reporton 08-22 Surgery Visit Report Normal [facility] CBC W/Diff, Automatedon 12-0 Absolute Lymph 1.33 X10 3/uL Normal 0.83-4.51 [facility] Comment on above: Performed By: #### L 100.0100, L500.4050 ####[facility] [address] [place], [address] Absolute Neut 3.5 X10 3/uL Normal 2.0-7.7 [facility] Comment on above: Performed By: #### L 100.0100, L500.4050 ####[facility] [address] [place], [address] Basophils/100 WBC (Bld) 0.9 % Normal 0-1 [facility] Comment on above: Performed By: #### L 100.0100, L500.4050 ####[facility] [address] [place], [address] Eosinophils/100 WBC (Bld) 0.4 % Normal 0-5 [facility] Comment on above: Performed By: #### L 100.0100, L500.4050 ####[facility] [address] [place], [address] Erythrocyte distribution width (RBC) [Ratio] 12.2 % Normal 11.6-14.6 [facility] Comment on above: Performed By: #### L 100.0100, L500.4050 ####[facility] [address] [place], [address] Hematocrit (Bld) [Volume fraction] 37.0 % Normal 37-47 [facility] Comment on above: Performed By: #### L 100.0100, L500.4050 ####[facility] [address], [address] Hemoglobin (Bld) [Mass/Vol] 12.5 g/dL Normal 12.0-15.0 [facility] Comment on above: Performed By: #### L 100.0100, L500.4050 ####[facility] [address] [place], [address] IG% 0.200 Normal 0.0-0.9 [facility] Comment on above: Result Comment: IG% - Immature Granulocytes (promyelocytes, myelocytes andmetamyelocytes) > 1% indicates that a LEFT SHIFT is Present. Performed By: #### L 100.0100, L500.4050 ####[facility] [address] [place], [address] Lymphocytes/100 WBC (Bld) 24.8 % Normal 19-41 [facility] Comment on above: Performed By: #### L 100.0100, L500.4050 ####[facility] [address] [place], [address] MCH (RBC) [Entitic mass] 31.3 pg Normal 27.0-32.0 [facility] Comment on above: Performed By: #### L 100.0100, L500.4050 ####[facility] [address] [place], [address] MCHC (RBC) [Mass/Vol] 33.8 g/dL Normal 32-36 [facility] Comment on above: Performed By: #### L 100.0100, L500.4050 ####[facility] [address] [place], [address] MCV (RBC) [Entitic vol] 92.7 fL Normal 81-99 [facility] Comment on above: Performed By: #### L 100.0100, L500.4050 ####[facility] [address] [place], [address] Monocytes/100 WBC (Bld) 7.8 % Normal 0-10 [facility] Comment on above: Performed By: #### L 100.0100, L500.4050 ####[facility] [address] [place], [address] Neutrophils/100 WBC (Bld) 65.9 % Normal 47-70 [facility] Comment on above: Performed By: #### L 100.0100, L500.4050 ####[facility] [address] [place], [address] Nucleated RBC (Bld) [#/Vol] 0 10*3/uL Normal 0-5 [facility] Comment on above: Performed By: #### L 100.0100, L500.4050 ####[facility] [address] [place], [address] Platelet mean volume (Bld) [Entitic vol] 9.5 fL Normal 6.2-12.0 [facility] Comment on above: Performed By: #### L 100.0100, L500.4050 ####[facility] [address] [place], [address] Platelets (Bld) [#/Vol] 348 10*3/uL Normal 150-450 [facility] Comment on above: Performed By: #### L 100.0100, L500.4050 ####[facility] [address] [place], [address] RBC (Bld) [#/Vol] 3.99 10*6/uL Low 4.2-5.4 [facility] Comment on above: Performed By: #### L 100.0100, L500.4050 ####[facility] [address] [place], [address] RDW SD 41.7 fl Normal 35.1-43.9 [facility] Comment on above: Performed By: #### L 100.0100, L500.4050 ####[facility] [address] [place], [address] WBC (Bld) [#/Vol] 5.4 10*3/uL Normal 4.4-11.0 [facility] Comment on above: Performed By: #### L 100.0100, L500.4050 ####[facility] [address] [place], [address] Comprehensive Metabolic Prof laura 08-20-2024 Albumin [Mass/Vol] 3.9 g/dL Normal 3.2-5.0 [facility] Comment on above: Performed By: #### L 100.0100, L500.4050 ####[facility] [address] [place], [address] Albumin/Globulin [Mass ratio] 1.1 {ratio} Normal 0.9-2.4 [facility] Comment on above: Performed By: #### L 100.0100, L500.4050 ####[facility] [address] [place], [address] ALK P 88 U/L Normal 45-117 [facility] Comment on above: Performed By: #### L 100.0100, L500.4050 ####[facility] [address] [place], [address] ALT [Catalytic activity/Vol] 22 U/L Normal 13-56 [facility] Comment on above: Performed By: #### L 100.0100, L500.4050 ####[facility] [facility] [address] [place], [address] AST [Catalytic activity/Vol] 22 U/L Normal 15-37 [facility] Comment on above: Performed By: #### L 100.0100, L500.4050 ####[facility] [address] [place], [address] Bilirubin [Mass/Vol] 0.40 mg/dL Normal 0.20-1.00 [facility] Comment on above: Result Comment: For patients on eltrombopag therapy, use of Dimension Mason TBIL is not recommended. Performed By: #### L 100.0100, L500.4050 ####[facility] [address] [place], [address] BUN/CRE 34.7 RATIO High 10-20 [facility] Comment on above: Performed By: #### L 100.0100, L500.4050 ####[facility] [address] [place], [address] CA,Total 9.9 mg/dL Normal 8.5-10.1 [facility] Comment on above: Performed By: #### L 100.0100, L500.4050 ####[facility] [address] [place], [address] Chloride [Moles/Vol] 107 mmol/L Normal 98-107 [facility] Comment on above: Performed By: #### L 100.0100, L500.4050 ####[facility] [address] [place], [address] CO2 [Moles/Vol] 27.0 mmol/L Normal 21.0-32.0 [facility] Comment on above: Performed By: #### L 100.0100, L500.4050 ####[facility] [address] [place], [address] Creatinine [Mass/Vol] 0.52 mg/dL Low 0.55-1.02 [facility] Comment on above: Result Comment: The validity of the calculated GFR GFRAA in patients over70 years has not been determined. Clinical correlation isessential. Performed By: #### L 100.0100, L500.4050 ####[facility] [address] [place], [address] ECRCL 121.86 ml/min Normal [facility] Comment on above: Performed By: #### L 100.0100, L500.4050 ####[facility] [address] [place], [address] EST GFR - AA 157 mL/min Normal >60 [facility] Comment on above: Result Comment: Afri can Ghanaian GFR Calc Performed By: #### L 100.0100, L500.4050 ####[facility] [address] [place], [address] GAP 5 Normal 5-15 [facility] Comment on above: Performed By: #### L 100.0100, L500.4050 ####[facility] [address] [place], [address] GFR/1.73 sq M.predicted among non-blacks MDRD (S/P/Bld) [Vol rate/Area] 130 mL/min/{1.73_m2} Normal >60 [facility] Comment on above: Result Comment: Non- GFR Calc Performed By: #### L 100.0100, L500.4050 ####[facility] [address] [place], [address] Globulin (S) [Mass/Vol] 3.7 g/dL Normal 2.2-4.2 [facility] Comment on above: Performed By: #### L 100.0100, L500.4050 ####[facility] [address] [place], [address] Glucose [Mass/Vol] 88 mg/dL Normal 74-106 [facility] Comment on above: Performed By: #### L 100.0100, L500.4050 ####[facility] [address] [place], [address] Potassium [Moles/Vol] 3.8 mmol/L Normal 3.5-5.1 [facility] Comment on above: Performed By: #### L 100.0100, L500.4050 ####[facility] [address] [place], [address] Sodium [Moles/Vol] 139 mmol/L Normal 136-145 [facility] Comment on above: Performed By: #### L 100.0100, L500.4050 ####[facility] [address] [place], [address] T PROT 7.6 g/dL Normal 6.4-8.2 [facility] Comment on above: Performed By: #### L 100.0100, L500.4050 ####[facility] [address] [place], [address] Urea nitrogen [Mass/Vol] 18 mg/dL Normal 7-18 [facility] Comment on above: Performed By: #### L 100.0100, L500.4050 ####[facility] [address] [place], [address] End of Treatment Summaryon 1 10-21-2023 End of Treatment Summary Normal [facility] Estimated glomerular filtrat ion rate (GFR) AmericanOrdered By: Renetta Oden on 08-20-2024 Estimated GFR (MDRD) Amer 157 mL/min >60 [facility] Comment on above: GFR Calc Oncology Visit Reporton Oncology Visit Report Normal [facility] Radiation Oncology Visiton 1 10-14-2023 Radiation Oncology Visit Normal [facility] Radiation Oncology Visit Normal [facility] Radiation Oncology Visiton 1 10-08-2023 Radiation Oncology Visit Normal [facility] OT Functional Capacity Evalo n 08-01-2024 OT Functional Capacity Eval Normal [facility] Radiation Oncology Visiton 1 10-01-2023 Radiation Oncology Visit Normal [facility] Radiation Oncology Visiton 1 09-24-2023 Radiation Oncology Visit Normal [facility] Basic Metabolic Profile (BMP )on 07-12-2024 BUN/CRE 30.8 RATIO High 07-01 [facility] Comment on above: Performed By: #### L 500.2500, L501.5200, L100.0100 ####[facility] [address] [place], [address] CA,Total 9.1 mg/dL Normal 8.5-10.1 [facility] Comment on above: Performed By: #### L 500.2500, L501.5200, L100.0100 ####[facility] [address] [place], [address] Chloride [Moles/Vol] 107 mmol/L Normal 98-107 [facility] Comment on above: Performed By: #### L 500.2500, L501.5200, L100.0100 ####[facility] [address] [place], [address] CO2 [Moles/Vol] 26.0 mmol/L Normal 21.0-32.0 [facility] Comment on above: Performed By: #### L 500.2500, L501.5200, L100.0100 ####[facility] [address] [place], [address] Creatinine [Mass/Vol] 0.52 mg/dL Low 0.55-1.02 [facility] Comment on above: Result Comment: The validity of the calculated GFR GFRAA in patients over70 years has not been determined. Clinical correlation isessential. Performed By: #### L 500.2500, L501.5200, L100.0100 ####[facility] [address] [place], [address] ECRCL 121.86 ml/min Normal [facility] Comment on above: Performed By: #### L 500.2500, L501.5200, L100.0100 ####[facility] [address] [place], [address] EST GFR - AA 157 mL/min Normal >60 [facility] Comment on above: Result Comment: Afri can Ghanaian GFR Calc Performed By: #### L 500.2500, L501.5200, L100.0100 ####[facility] [address] [place], [address] GAP 6 Normal 5-15 [facility] Comment on above: Performed By: #### L 500.2500, L501.5200, L100.0100 ####[facility] [address] [place], [address] GFR/1.73 sq M.predicted among non-blacks MDRD (S/P/Bld) [Vol rate/Area] 130 mL/min/{1.73_m2} Normal >60 [facility] Comment on above: Result Comment: Non- GFR Calc Performed By: #### L 500.2500, L501.5200, L100.0100 ####[facility] [address] [place], [address] Glucose [Mass/Vol] 95 mg/dL Normal 74-106 [facility] Comment on above: Performed By: #### L 500.2500, L501.5200, L100.0100 ####[facility] [address] [place], [address] Potassium [Moles/Vol] 4.1 mmol/L Normal 3.5-5.1 [facility] Comment on above: Performed By: #### L 500.2500, L501.5200, L100.0100 ####[facility] [address] [place], [address] Sodium [Moles/Vol] 139 mmol/L Normal 136-145 [facility] Comment on above: Performed By: #### L 500.2500, L501.5200, L100.0100 ####[facility] [address] [place], [address] Urea nitrogen [Mass/Vol] 16 mg/dL Normal 7-18 [facility] Comment on above: Performed By: #### L 500.2500, L501.5200, L100.0100 ####[facility] [address] [place], [address] CBC W/Diff, Automatedon 10-3 Absolute Lymph 1.41 X10 3/uL Normal 0.83-4.51 [facility] Comment on above: Performed By: #### L 500.2500, L501.5200, L100.0100 ####[facility] [address], [address] Absolute Neut 8.9 X10 3/uL High 2.0-7.7 [facility] Comment on above: Performed By: #### L 500.2500, L501.5200, L100.0100 ####[facility] [address] [place], [address] Basophils/100 WBC (Bld) 1.2 % High 0-1 [facility] Comment on above: Performed By: #### L 500.2500, L501.5200, L100.0100 ####[facility] [address] [place], [address] Eosinophils/100 WBC (Bld) 0.5 % Normal 0-5 [facility] Comment on above: Performed By: #### L 500.2500, L501.5200, L100.0100 ####[facility] [address] [place], [address] Erythrocyte distribution width (RBC) [Ratio] 12.8 % Normal 11.6-14.6 [facility] Comment on above: Performed By: #### L 500.2500, L501.5200, L100.0100 ####[facility] [address] [place], [address] Hematocrit (Bld) [Volume fraction] 35.6 % Low 37-47 [facility] Comment on above: Performed By: #### L 500.2500, L501.5200, L100.0100 ####[facility] [address] [place], [address] Hemoglobin (Bld) [Mass/Vol] 11.8 g/dL Low 12.0-15.0 [facility] Comment on above: Performed By: #### L 500.2500, L501.5200, L100.0100 ####[facility] [address] [place], [address] IG% 0.500 Normal 0.0-0.9 [facility] Comment on above: Result Comment: IG% - Immature Granulocytes (promyelocytes, myelocytes andmetamyelocytes) > 1% indicates that a LEFT SHIFT is Present. Performed By: #### L 500.2500, L501.5200, L100.0100 ####[facility] [address] [place], [address] Lymphocytes/100 WBC (Bld) 12.5 % Low 19-41 [facility] Comment on above: Performed By: #### L 500.2500, L501.5200, L100.0100 ####[facility] [address] [place], [address] MCH (RBC) [Entitic mass] 31.9 pg Normal 27.0-32.0 [facility] Comment on above: Performed By: #### L 500.2500, L501.5200, L100.0100 ####[facility] [address] [place], [address] MCHC (RBC) [Mass/Vol] 33.1 g/dL Normal 32-36 [facility] Comment on above: Performed By: #### L 500.2500, L501.5200, L100.0100 ####[facility] [address] [place], [address] MCV (RBC) [Entitic vol] 96.2 fL Normal 81-99 [facility] Comment on above: Performed By: #### L 500.2500, L501.5200, L100.0100 ####[facility] [address] [place], [address] Monocytes/100 WBC (Bld) 5.9 % Normal 0-10 [facility] Comment on above: Performed By: #### L 500.2500, L501.5200, L100.0100 ####[facility] [address] [place], [address] Neutrophils/100 WBC (Bld) 79.4 % High 47-70 [facility] Comment on above: Performed By: #### L 500.2500, L501.5200, L100.0100 ####[facility] [address] [place], [address] Nucleated RBC (Bld) [#/Vol] 0 10*3/uL Normal 0-5 [facility] Comment on above: Performed By: #### L 500.2500, L501.5200, L100.0100 ####[facility] [address] [place], [address] Platelet mean volume (Bld) [Entitic vol] 9.7 fL Normal 6.2-12.0 [facility] Comment on above: Performed By: #### L 500.2500, L501.5200, L100.0100 ####[facility] [address] [place], [address] Platelets (Bld) [#/Vol] 429 10*3/uL Normal 150-450 [facility] Comment on above: Performed By: #### L 500.2500, L501.5200, L100.0100 ####[facility] [address] [place], [address] RBC (Bld) [#/Vol] 3.70 10*6/uL Low 4.2-5.4 [facility] Comment on above: Performed By: #### L 500.2500, L501.5200, L100.0100 ####[facility] [address] [place], [address] RDW SD 45.2 fl High 35.1-43.9 [facility] Comment on above: Performed By: #### L 500.2500, L501.5200, L100.0100 ####[facility] [address] [place], [address] WBC (Bld) [#/Vol] 11.3 10*3/uL High 4.4-11.0 [facility] Comment on above: Performed By: #### L 500.2500, L501.5200, L100.0100 ####[facility] [address] [place], [address] Magnesiumon 07-12-2024 Magnesium [Mass/Vol] 2.1 mg/dL Normal 1.6-2.6 [facility] Comment on above: Performed By: #### L 500.2500, L501.5200, L100.0100 ####[facility] [address] [place], [address] Magnesium measurementOrdered By: Renetta Oden on 07-12-2024 Magnesium [Mass/Vol] 2.1 mg/dL 1.6-2.6 [facility] Oncology Visit Reporton 06-14 Oncology Visit Report Normal [facility] Radiation Oncology Visiton 1 Radiation Oncology Visit Normal [facility] Urine Cultureon 06-29-2024 URC Culture exhibits no growth. Normal [facility] Comment on above: Performed By: #### L 400.0001, M100.2200 ####[facility] [address] [place], [address] Bilirubin Test strip Ql (U)O rdered By: Renetta Oden on 06-28-2024 Bilirubin Ql (U) Negative Negative [facility] CBC W/Diff, Automatedon 06-12 Absolute Lymph 0.86 X10 3/uL Normal 0.83-4.51 [facility] Comment on above: Performed By: #### L 500.4050, L100.0100, L501.2300 ####[facility] [facility] [address] [place], [address] Absolute Neut 5.5 X10 3/uL Normal 2.0-7.7 [facility] Comment on above: Performed By: #### L 500.4050, L100.0100, L501.2300 ####[facility] [address] [place], [address] Basophils/100 WBC (Bld) 0.1 % Normal 0-1 [facility] Comment on above: Performed By: #### L 500.4050, L100.0100, L501.2300 ####[facility] [address] [place], [address] Eosinophils/100 WBC (Bld) 0.0 % Normal 0-5 [facility] Comment on above: Performed By: #### L 500.4050, L100.0100, L501.2300 ####[facility] [address] [place], [address] Erythrocyte distribution width (RBC) [Ratio] 13.2 % Normal 11.6-14.6 [facility] Comment on above: Performed By: #### L 500.4050, L100.0100, L501.2300 ####[facility] [address] [place], [address] Hematocrit (Bld) [Volume fraction] 34.9 % Low 37-47 [facility] Comment on above: Performed By: #### L 500.4050, L100.0100, L501.2300 ####[facility] [address] [place], [address] Hemoglobin (Bld) [Mass/Vol] 11.4 g/dL Low 12.0-15.0 [facility] Comment on above: Performed By: #### L 500.4050, L100.0100, L501.2300 ####[facility] [address] [place], [address] IG% 0.300 Normal 0.0-0.9 [facility] Comment on above: Result Comment: IG% - Immature Granulocytes (promyelocytes, myelocytes andmetamyelocytes) > 1% indicates that a LEFT SHIFT is Present. Performed By: #### L 500.4050, L100.0100, L501.2300 ####[facility] [address] [place], [address] Lymphocytes/100 WBC (Bld) 12.8 % Low 19-41 [facility] Comment on above: Performed By: #### L 500.4050, L100.0100, L501.2300 ####[facility] [address] [place], [address] MCH (RBC) [Entitic mass] 31.8 pg Normal 27.0-32.0 [facility] Comment on above: Performed By: #### L 500.4050, L100.0100, L501.2300 ####[facility] [address] [place], [address] MCHC (RBC) [Mass/Vol] 32.7 g/dL Normal 32-36 [facility] Comment on above: Performed By: #### L 500.4050, L100.0100, L501.2300 ####[facility] [address] [place], [address] MCV (RBC) [Entitic vol] 97.2 fL Normal 81-99 [facility] Comment on above: Performed By: #### L 500.4050, L100.0100, L501.2300 ####[facility] [address] [place], [address] Monocytes/100 WBC (Bld) 4.9 % Normal 0-10 [facility] Comment on above: Performed By: #### L 500.4050, L100.0100, L501.2300 ####[facility] [address] [place], [address] Neutrophils/100 WBC (Bld) 81.9 % High 47-70 [facility] Comment on above: Performed By: #### L 500.4050, L100.0100, L501.2300 ####[facility] [address] [place], [address] Nucleated RBC (Bld) [#/Vol] 0 10*3/uL Normal 0-5 [facility] Comment on above: Performed By: #### L 500.4050, L100.0100, L501.2300 ####[facility] [address] [place], [address] Platelet mean volume (Bld) [Entitic vol] 9.3 fL Normal 6.2-12.0 [facility] Comment on above: Performed By: #### L 500.4050, L100.0100, L501.2300 ####[facility] [address] [place], [address] Platelets (Bld) [#/Vol] 431 10*3/uL Normal 150-450 [facility] Comment on above: Performed By: #### L 500.4050, L100.0100, L501.2300 ####[facility] [address] [place], [address] RBC (Bld) [#/Vol] 3.59 10*6/uL Low 4.2-5.4 [facility] Comment on above: Performed By: #### L 500.4050, L100.0100, L501.2300 ####[facility] [address] [place], [address] RDW SD 47.7 fl High 35.1-43.9 [facility] Comment on above: Performed By: #### L 500.4050, L100.0100, L501.2300 ####[facility] [address] [place], [address] WBC (Bld) [#/Vol] 6.7 10*3/uL Normal 4.4-11.0 [facility] Comment on above: Performed By: #### L 500.4050, L100.0100, L501.2300 ####[facility] [address] [place], [address] [facility] Albumin [Mass/Vol] 3.6 g/dL Normal 3.2-5.0 [facility] Comment on above: Performed By: #### L 500.4050, L100.0100, L501.2300 ####[facility] [address] [place], [address] Albumin/Globulin [Mass ratio] 0.9 {ratio} Normal 0.9-2.4 [facility] Comment on above: Performed By: #### L 500.4050, L100.0100, L501.2300 ####[facility] [address] [place], [address] ALK P 103 U/L Normal 45-117 [facility] Comment on above: Performed By: #### L 500.4050, L100.0100, L501.2300 ####[facility] [address] [place], [address] ALT [Catalytic activity/Vol] 17 U/L Normal 13-56 [facility] Comment on above: Performed By: #### L 500.4050, L100.0100, L501.2300 ####[facility] [address] [place], [address] AST [Catalytic activity/Vol] 16 U/L Normal 15-37 [facility] Comment on above: Performed By: #### L 500.4050, L100.0100, L501.2300 ####[facility] [address] [place], [address] Bilirubin [Mass/Vol] 0.20 mg/dL Normal 0.20-1.00 [facility] Comment on above: Result Comment: For patients on eltrombopag therapy, use of Dimension Mason TBIL is not recommended. Performed By: #### L 500.4050, L100.0100, L501.2300 ####[facility] [address] [place], [address] BUN/CRE 44.9 RATIO High 10-20 [facility] Comment on above: Performed By: #### L 500.4050, L100.0100, L501.2300 ####[facility] [address] [place], [address] CA,Total 9.3 mg/dL Normal 8.5-10.1 [facility] Comment on above: Performed By: #### L 500.4050, L100.0100, L501.2300 ####[facility] [address] [place], [address] Chloride [Moles/Vol] 112 mmol/L High 98-107 [facility] Comment on above: Performed By: #### L 500.4050, L100.0100, L501.2300 ####[facility] [address] [place], [address] CO2 [Moles/Vol] 23.0 mmol/L Normal 21.0-32.0 [facility] Comment on above: Performed By: #### L 500.4050, L100.0100, L501.2300 ####[facility] [address] [place], [address] Creatinine [Mass/Vol] 0.51 mg/dL Low 0.55-1.02 [facility] Comment on above: Result Comment: The validity of the calculated GFR GFRAA in patients over70 years has not been determined. Clinical correlation isessential. Performed By: #### L 500.4050, L100.0100, L501.2300 ####[facility] [address] [place], [address] ECRCL 124.25 ml/min Normal [facility] Comment on above: Performed By: #### L 500.4050, L100.0100, L501.2300 ####[facility] [address] [place], [address] EST GFR - AA 160 mL/min Normal >60 [facility] Comment on above: Result Comment: Afri can [place] GFR Calc Performed By: #### L 500.4050, L100.0100, L501.2300 ####[facility] [address] [place], [address] GAP 6 Normal 5-15 [facility] Comment on above: Performed By: #### L 500.4050, L100.0100, L501.2300 ####[facility] [address] [place], [address] GFR/1.73 sq M.predicted among non-blacks MDRD (S/P/Bld) [Vol rate/Area] 132 mL/min/{1.73_m2} Normal >60 [facility] Comment on above: Result Comment: Non- GFR Calc Performed By: #### L 500.4050, L100.0100, L501.2300 ####[facility] [address] [place], [address] Globulin (S) [Mass/Vol] 3.8 g/dL Normal 2.2-4.2 [facility] Comment on above: Performed By: #### L 500.4050, L100.0100, L501.2300 ####[facility] [address] [place], [address] Glucose [Mass/Vol] 107 mg/dL High 74-106 [facility] Comment on above: Result Comment: Fast ing Glucose result from 100 to 125 mg/dLsuggests IMPAIRED HOMEOSTASIS per A.D.A. criteria. Performed By: #### L 500.4050, L100.0100, L501.2300 ####[facility] [address] [place], [address] Potassium [Moles/Vol] 3.9 mmol/L Normal 3.5-5.1 [facility] Comment on above: Performed By: #### L 500.4050, L100.0100, L501.2300 ####[facility] [address] [place], [address] Sodium [Moles/Vol] 142 mmol/L Normal 136-145 [facility] Comment on above: Performed By: #### L 500.4050, L100.0100, L501.2300 ####[facility] [address] [place], [address] T PROT 7.4 g/dL Normal 6.4-8.2 [facility] Comment on above: Performed By: #### L 500.4050, L100.0100, L501.2300 ####[facility] [address] [place], [address] Urea nitrogen [Mass/Vol] 23 mg/dL High 7-18 [facility] Comment on above: Performed By: #### L 500.4050, L100.0100, L501.2300 ####[facility] [address] [place], [address] Epithelial cells.squamous LM Ql (Urine sed)Ordered By: Renetta Oden on 06-28-2024 Epithelial cells.squamous LM.HPF (Urine sed) [#/Area] 0 /[HPF] 5-10 [facility] Glucose Ql (U)Ordered By: Gage Oden on 06-28-2024 Urine Glucose (UA) Normal mg/dl Normal [facility] Ketones Test strip Ql (U)Ord ered By: Renetta Oden on 06-28-2024 Ketones Ql (U) 5 mg/dl High Negative [facility] Microscopic analysis of urin e for red blood cells (RBC)Ordered By: Renetta Oden on 06-28-2024 Microscopic analysis of urine for red blood cells (RBC) 0 SEEN /hpf 0-5 [facility] Urine RBC 0 SEEN /hpf 0-5 [facility] Mucus LM Ql (Urine sed)Order ed By: Renetta Oden on 06-28-2024 Mucus Ql (Urine sed) 0 SEEN /hpf [facility] Nitrite Test strip Ql (U)Ord ered By: Renetta Oden on 06-28-2024 Nitrite Ql (U) Negative Negative [facility] Oncology Visit Reporton 06-12 Oncology Visit Report Normal [facility] Phosphoruson 06-28-2024 Phosphate [Mass/Vol] 3.2 mg/dL Normal 2.5-4.9 [facility] Comment on above: Performed By: #### L 500.4050, L100.0100, L501.2300 ####[facility] [address] [place], [place], [id number] Phosphorus measurementOrdere d By: Barry Arrington on 06-28-2024 Phosphorus Level 3.2 mg/dL 2.5-4.9 [facility] Protein Test strip Ql (U)Ord ered By: Renetta Oden on 06-28-2024 Protein Ql (U) 30 mg/dl High Negative [facility] Squamous epithelial cells de tection in urine sediment by light microscopyOrdered By: Renetta Oden on 06-28-2024 Epithelial cells.squamous LM Ql (Urine sed) 0 SEEN /hpf 5-10 [facility] Urinalysis, Completeon 06-28 BACTERIA 0 SEEN Normal None Seen [facility] Comment on above: Order Comment: COLLE CTOR TO SPECIFY Performed By: #### L 400.0001, M100.2200 ####[facility] [address] [place], [address] EPI,SQUAMOUS 0 SEEN Normal 5-10 [facility] Comment on above: Order Comment: CHARLINE CTOR TO SPECIFY Performed By: #### L 400.0001, M100.2200 ####[facility] [address] [place], [address] Mucus Ql (Urine sed) 0 SEEN Normal [facility] Comment on above: Order Comment: CHARLINE CTOR TO SPECIFY Performed By: #### L 400.0001, M100.2200 ####[facility] [address] [place], [address] RBC 0 SEEN Normal 0-5 [facility] Comment on above: Order Comment: CHARLINE CTOR TO SPECIFY Performed By: #### L 400.0001, M100.2200 ####[facility] [address] [place], [address] WBC 0 SEEN Normal 0-5 [facility] Comment on above: Order Comment: CHARLINE CTOR TO SPECIFY Performed By: #### L 400.0001, M100.2200 ####[facility] [address] [place], [address] Urine blood detectionOrdered By: Renetta Oden on 06-28-2024 Urine Occult Blood 25 /ul High Negative [facility] Urine clarityOrdered By: Shelly Oden on 06-28-2024 Clarity (U) Clear Clear [facility] Urine color determinationOrd ered By: Renetta Oden on 06-28-2024 Color (U) Yellow Yellow [facility] Urine cultureOrdered By: Shelly Oden on 06-28-2024 Bacteria identified Cx Nom (U) Culture exhibits no growth. [facility] Urine glucose detectionOrder ed By: Renetta Oden on 06-28-2024 Glucose Ql (U) Normal mg/dl Normal [facility] Urine leukocyte esterase det ection by dipstickOrdered By: Renetta Oden on 06-28-2024 Leukocyte esterase Test strip Ql (U) 25 /ul High Negative [facility] Urine pHOrdered By: Renetta keith on 06-28-2024 pH (U) 6.0 [pH] 5.0 - 8.0 [facility] Urine sediment bacteria coun t by microscopy (number/high power field)Ordered By: Renetta Oden on 06-28-2024 Bacteria LM.HPF (Urine sed) [#/Area] 0 /[HPF] None Seen [facility] Urine specific gravity measu rementOrdered By: Renetta Oden on 06-28-2024 Specific gravity (U) [Rel density] 1.025 1.002-1.030 [facility] Urine urobilinogen measureme ntOrdered By: Renetta Squiresach on 06-28-2024 Urobilinogen Ql (U) 1 mg/dl High Normal [facility] Urobilinogen Ql (U)Ordered B y: Renetta Akshat on 06-28-2024 Urobilinogen (U) [Mass/Vol] 1 mg/dL High Normal [facility] White blood cell countOrdere d By: Renetta Oden on 06-28-2024 Urine WBC 0 SEEN /hpf 0-5 [facility] White blood cell count 0 SEEN /hpf 0-5 [facility] CBC W/Diff, Automatedon 06-12 Absolute Neut Normal 2.0-7.7 [facility] Comment on above: Result Comment: Canc elled via OM: Patient Ill Performed By: #### L 500.4050, L100.0100 ####[facility] [address] [place], [place], [id number] HCT Normal 37-47 [facility] Comment on above: Result Comment: Canc elled via OM: Patient Ill Performed By: #### L 500.4050, L100.0100 ####[facility] [address] [place], [address] HGB Normal 12.0-15.0 [facility] Comment on above: Result Comment: Canc elled via OM: Patient Ill Performed By: #### L 500.4050, L100.0100 ####[facility] [address] [place], [address] MCH Normal 27.0-32.0 [facility] Comment on above: Result Comment: Canc elled via OM: Patient Ill Performed By: #### L 500.4050, L100.0100 ####[facility] [address] [place], [address] MCHC Normal 32-36 [facility] Comment on above: Result Comment: Canc elled via OM: Patient Ill Performed By: #### L 500.4050, L100.0100 ####[facility] [address] [place], [address] MCV Normal 81-99 [facility] Comment on above: Result Comment: Canc elled via OM: Patient Ill Performed By: #### L 500.4050, L100.0100 ####[facility] [address] [place], [address] NEUT% Normal 47-70 [facility] Comment on above: Result Comment: Canc elled via OM: Patient Ill Performed By: #### L 500.4050, L100.0100 ####[facility] [address] [place], [address] PLT Normal 150-450 [facility] Comment on above: Result Comment: Canc elled via OM: Patient Ill Performed By: #### L 500.4050, L100.0100 ####[facility] [address] [place], [address] RBC Normal 4.2-5.4 [facility] Comment on above: Result Comment: Canc elled via OM: Patient Ill Performed By: #### L 500.4050, L100.0100 ####[facility] [address] [place], [address] RDW CV Normal 11.6-14.6 [facility] Comment on above: Result Comment: Canc elled via OM: Patient Ill Performed By: #### L 500.4050, L100.0100 ####[facility] [address] [place], [address] RDW SD Normal 35.1-43.9 [facility] Comment on above: Result Comment: Canc elled via OM: Patient Ill Performed By: #### L 500.4050, L100.0100 ####[facility] [address] [place], [address] WBC Normal 4.4-11.0 [facility] Comment on above: Result Comment: Canc elled via OM: Patient Ill Performed By: #### L 500.4050, L100.0100 ####[facility] [address] [place], [address] Comprehensive Metabolic Prof ilon 06-21-2024 ALB Normal 3.2-5.0 [facility] Comment on above: Result Comment: Canc elled via OM: Patient Ill Performed By: #### L 500.4050, L100.0100 ####[facility] [address] [place], [address] ALK P Normal 45-117 [facility] Comment on above: Result Comment: Canc elled via OM: Patient Ill Performed By: #### L 500.4050, L100.0100 ####[facility] [address] [place], [address] ALT Normal 13-56 [facility] Comment on above: Result Comment: Canc elled via OM: Patient Ill Performed By: #### L 500.4050, L100.0100 ####[facility] [address] [place], [address] AST Normal 15-37 [facility] Comment on above: Result Comment: Canc elled via OM: Patient Ill Performed By: #### L 500.4050, L100.0100 ####[facility] [address] [place], [address] BUN Normal 7-18 [facility] Comment on above: Result Comment: Canc elled via OM: Patient Ill Performed By: #### L 500.4050, L100.0100 ####[facility] [address] [place], [address] BUN/CRE Normal 10-20 [facility] Comment on above: Result Comment: Canc elled via OM: Patient Ill Performed By: #### L 500.4050, L100.0100 ####[facility] [address] [place], [address] CA,Total Normal 8.5-10.1 [facility] Comment on above: Result Comment: Canc elled via OM: Patient Ill Performed By: #### L 500.4050, L100.0100 ####[facility] [address] [place], [address] CL Normal 98-107 [facility] Comment on above: Result Comment: Canc elled via OM: Patient Ill Performed By: #### L 500.4050, L100.0100 ####[facility] [address] [place], [address] CO2 Normal 21.0-32.0 [facility] Comment on above: Result Comment: Canc elled via OM: Patient Ill Performed By: #### L 500.4050, L100.0100 ####[facility] [address] [place], [address] CREAT,SERUM Normal 0.55-1.02 [facility] Comment on above: Result Comment: Canc elled via OM: Patient Ill Performed By: #### L 500.4050, L100.0100 ####[facility] [address] [place], [address] EST GFR Normal >60 [facility] Comment on above: Result Comment: Canc elled via OM: Patient Ill Performed By: #### L 500.4050, L100.0100 ####[facility] [address] [place], [address] EST GFR - AA Normal >60 [facility] Comment on above: Result Comment: Canc elled via OM: Patient Ill Performed By: #### L 500.4050, L100.0100 ####[facility] [address] [place], [address] GAP Normal 5-15 [facility] Comment on above: Result Comment: Canc elled via OM: Patient Ill Performed By: #### L 500.4050, L100.0100 ####[facility] [address] [place], [address] GLU Normal 74-106 [facility] Comment on above: Result Comment: Canc elled via OM: Patient Ill Performed By: #### L 500.4050, L100.0100 ####[facility] [address] [place], [address] Potassium Normal 3.5-5.1 [facility] Comment on above: Result Comment: Canc elled via OM: Patient Ill Performed By: #### L 500.4050, L100.0100 ####[facility] [address] [place], [address] T BILI Normal 0.20-1.00 [facility] Comment on above: Result Comment: Canc elled via OM: Patient Ill Performed By: #### L 500.4050, L100.0100 ####[facility] [address] [place], [address] T PROT Normal 6.4-8.2 [facility] Comment on above: Result Comment: Canc elled via OM: Patient Ill Performed By: #### L 500.4050, L100.0100 ####[facility] [address] [place], [address] Comprehensive Metabolic Profil Normal 136-145 [facility] Comment on above: Result Comment: Canc elled via OM: Patient Ill Performed By: #### L 500.4050, L100.0100 ####[facility] [address] [place], [address] CBC W/Diff, Automatedon 05-13 Absolute Lymph 0.65 X10 3/uL Low 0.83-4.51 [facility] Comment on above: Performed By: #### L 100.0100, L500.4050, L501.2300 ####[facility] [address] [place], [address] Absolute Neut 7.1 X10 3/uL Normal 2.0-7.7 [facility] Comment on above: Performed By: #### L 100.0100, L500.4050, L501.2300 ####[facility] [address] [place], [address] Basophils/100 WBC (Bld) 0.1 % Normal 0-1 [facility] Comment on above: Performed By: #### L 100.0100, L500.4050, L501.2300 ####[facility] [address] [place], [address] Eosinophils/100 WBC (Bld) 0.0 % Normal 0-5 [facility] Comment on above: Performed By: #### L 100.0100, L500.4050, L501.2300 ####[facility] [address] [place], [address] Erythrocyte distribution width (RBC) [Ratio] 14.0 % Normal 11.6-14.6 [facility] Comment on above: Performed By: #### L 100.0100, L500.4050, L501.2300 ####[facility] [address] [place], [address] Hematocrit (Bld) [Volume fraction] 33.8 % Low 37-47 [facility] Comment on above: Performed By: #### L 100.0100, L500.4050, L501.2300 ####[facility] [address] [place], [address] Hemoglobin (Bld) [Mass/Vol] 11.2 g/dL Low 12.0-15.0 [facility] Comment on above: Performed By: #### L 100.0100, L500.4050, L501.2300 ####[facility] [address] [place], [address] IG% 0.600 Normal 0.0-0.9 [facility] Comment on above: Result Comment: IG% - Immature Granulocytes (promyelocytes, myelocytes andmetamyelocytes) > 1% indicates that a LEFT SHIFT is Present. Performed By: #### L 100.0100, L500.4050, L501.2300 ####[facility] [address] [place], [address] Lymphocytes/100 WBC (Bld) 8.2 % Low 19-41 [facility] Comment on above: Performed By: #### L 100.0100, L500.4050, L501.2300 ####[facility] [address] [place], [address] MCH (RBC) [Entitic mass] 31.5 pg Normal 27.0-32.0 [facility] Comment on above: Performed By: #### L 100.0100, L500.4050, L501.2300 ####[facility] [address] [place], [address] MCHC (RBC) [Mass/Vol] 33.1 g/dL Normal 32-36 [facility] Comment on above: Performed By: #### L 100.0100, L500.4050, L501.2300 ####[facility] [address] [place], [address] MCV (RBC) [Entitic vol] 95.2 fL Normal 81-99 [facility] Comment on above: Performed By: #### L 100.0100, L500.4050, L501.2300 ####[facility] [address] [place], [address] Monocytes/100 WBC (Bld) 2.1 % Normal 0-10 [facility] Comment on above: Performed By: #### L 100.0100, L500.4050, L501.2300 ####[facility] [address] [place], [address] Neutrophils/100 WBC (Bld) 89.0 % High 47-70 [facility] Comment on above: Performed By: #### L 100.0100, L500.4050, L501.2300 ####[facility] [address] [place], [address] Nucleated RBC (Bld) [#/Vol] 0 10*3/uL Normal 0-5 [facility] Comment on above: Performed By: #### L 100.0100, L500.4050, L501.2300 ####[facility] [address] [place], [address] Platelet mean volume (Bld) [Entitic vol] 9.6 fL Normal 6.2-12.0 [facility] Comment on above: Performed By: #### L 100.0100, L500.4050, L501.2300 ####[facility] [address] [place], [address] Platelets (Bld) [#/Vol] 541 10*3/uL High 150-450 [facility] Comment on above: Performed By: #### L 100.0100, L500.4050, L501.2300 ####[facility] [address] [place], [address] RBC (Bld) [#/Vol] 3.55 10*6/uL Low 4.2-5.4 [facility] Comment on above: Performed By: #### L 100.0100, L500.4050, L501.2300 ####[facility] [address] [place], [address] RDW SD 48.5 fl High 35.1-43.9 [facility] Comment on above: Performed By: #### L 100.0100, L500.4050, L501.2300 ####[facility] [address] [place], [address] WBC (Bld) [#/Vol] 8.0 10*3/uL Normal 4.4-11.0 [facility] Comment on above: Performed By: #### L 100.0100, L500.4050, L501.2300 ####[facility] [address] [place], [address] Comprehensive Metabolic Prof [facility] 05-31-2024 Albumin [Mass/Vol] 3.7 g/dL Normal 3.2-5.0 [facility] Comment on above: Performed By: #### L 100.0100, L500.4050, L501.2300 ####[facility] [address] [place], [address] Albumin/Globulin [Mass ratio] 1.0 {ratio} Normal 0.9-2.4 [facility] Comment on above: Performed By: #### L 100.0100, L500.4050, L501.2300 ####[facility] [address] [place], [address] ALK P 101 U/L Normal 45-117 [facility] Comment on above: Performed By: #### L 100.0100, L500.4050, L501.2300 ####[facility] [address] [place], [address] ALT [Catalytic activity/Vol] 24 U/L Normal 13-56 [facility] Comment on above: Performed By: #### L 100.0100, L500.4050, L501.2300 ####[facility] [address] [place], [address] AST [Catalytic activity/Vol] 21 U/L Normal 15-37 [facility] Comment on above: Performed By: #### L 100.0100, L500.4050, L501.2300 ####[facility] [address] [place], [address] Bilirubin [Mass/Vol] 0.40 mg/dL Normal 0.20-1.00 [facility] Comment on above: Result Comment: For patients on eltrombopag therapy, use of Dimension Mason TBIL is not recommended. Performed By: #### L 100.0100, L500.4050, L501.2300 ####[facility] [address] [place], [address] BUN/CRE 35.0 RATIO High 10-20 [facility] Comment on above: Performed By: #### L 100.0100, L500.4050, L501.2300 ####[facility] [address] [place], [address] CA,Total 9.5 mg/dL Normal 8.5-10.1 [facility] Comment on above: Performed By: #### L 100.0100, L500.4050, L501.2300 ####[facility] [address] [place], [address] Chloride [Moles/Vol] 109 mmol/L High 98-107 [facility] Comment on above: Performed By: #### L 100.0100, L500.4050, L501.2300 ####[facility] [address] [place], [address] CO2 [Moles/Vol] 24.0 mmol/L Normal 21.0-32.0 [facility] Comment on above: Performed By: #### L 100.0100, L500.4050, L501.2300 ####[facility] [address] [place], [address] Creatinine [Mass/Vol] 0.60 mg/dL Normal 0.55-1.02 [facility] Comment on above: Result Comment: The validity of the calculated GFR GFRAA in patients over70 years has not been determined. Clinical correlation isessential. Performed By: #### L 100.0100, L500.4050, L501.2300 ####[facility] [address] [place], [address] ECRCL 105.61 ml/min Normal [facility] Comment on above: Performed By: #### L 100.0100, L500.4050, L501.2300 ####[facility] [address] [place], [address] EST GFR - AA 133 mL/min Normal >60 [facility] Comment on above: Result Comment: Afri can Ghanaian GFR Calc Performed By: #### L 100.0100, L500.4050, L501.2300 ####[facility] [address] [place], [address] GAP 7 Normal 5-15 [facility] Comment on above: Performed By: #### L 100.0100, L500.4050, L501.2300 ####[facility] [address] [place], [address] GFR/1.73 sq M.predicted among non-blacks MDRD (S/P/Bld) [Vol rate/Area] 110 mL/min/{1.73_m2} Normal >60 [facility] Comment on above: Result Comment: Non- GFR Calc Performed By: #### L 100.0100, L500.4050, L501.2300 ####[facility] [address] [place], [address] Globulin (S) [Mass/Vol] 3.6 g/dL Normal 2.2-4.2 [facility] Comment on above: Performed By: #### L 100.0100, L500.4050, L501.2300 ####[facility] [address] [place], [address] Glucose [Mass/Vol] 126 mg/dL High 74-106 [facility] Comment on above: Result Comment: Fast ing Glucose result greater than or equal to 126 mg/dLsuggests DIABETES MELLITUS per A.D.A. criteria. Performed By: #### L 100.0100, L500.4050, L501.2300 ####[facility] [address] [place], [address] Potassium [Moles/Vol] 4.1 mmol/L Normal 3.5-5.1 [facility] Comment on above: Performed By: #### L 100.0100, L500.4050, L501.2300 ####[facility] [address] [place], [address] Sodium [Moles/Vol] 140 mmol/L Normal 136-145 [facility] Comment on above: Performed By: #### L 100.0100, L500.4050, L501.2300 ####[facility] [address] [place], [address] T PROT 7.3 g/dL Normal 6.4-8.2 [facility] Comment on above: Performed By: #### L 100.0100, L500.4050, L501.2300 ####[facility] [address] [place], [address] Urea nitrogen [Mass/Vol] 21 mg/dL High 7-18 [facility] Comment on above: Performed By: #### L 100.0100, L500.4050, L501.2300 ####[facility] [address] [place], [address] Oncology Visit Reporton 05-13 Oncology Visit Report Normal [facility] Phosphoruson 05-31-2023 Phosphate [Mass/Vol] 2.8 mg/dL Normal 2.5-4.9 [facility] Comment on above: Performed By: #### L 100.0100, L500.4050, L501.2300 ####[facility] [address] [place], [address] CBC W/Diff, Automatedon 05-13 Absolute Lymph 1.60 X10 3/uL Normal 0.83-4.51 [facility] Comment on above: Performed By: #### L 500.4050, L100.0100 ####[facility] [address] [place], [address] Absolute Neut 4.2 X10 3/uL Normal 2.0-7.7 [facility] Comment on above: Performed By: #### L 500.4050, L100.0100 ####[facility] [address] [place], [address] Basophils/100 WBC (Bld) 0.8 % Normal 0-1 [facility] Comment on above: Performed By: #### L 500.4050, L100.0100 ####[facility] [address] [place], [address] Eosinophils/100 WBC (Bld) 0.0 % Normal 0-5 [facility] Comment on above: Performed By: #### L 500.4050, L100.0100 ####[facility] [address] [place], [address] Erythrocyte distribution width (RBC) [Ratio] 13.5 % Normal 11.6-14.6 [facility] Comment on above: Performed By: #### L 500.4050, L100.0100 ####[facility] [address] [place], [address] Hematocrit (Bld) [Volume fraction] 35.7 % Low 37-47 [facility] Comment on above: Performed By: #### L 500.4050, L100.0100 ####[facility] [address] [place], [address] Hemoglobin (Bld) [Mass/Vol] 11.5 g/dL Low 12.0-15.0 [facility] Comment on above: Performed By: #### L 500.4050, L100.0100 ####[facility] [address] [place], [address] IG% 0.200 Normal 0.0-0.9 [facility] Comment on above: Result Comment: IG% - Immature Granulocytes (promyelocytes, myelocytes andmetamyelocytes) > 1% indicates that a LEFT SHIFT is Present. Performed By: #### L 500.4050, L100.0100 ####[facility] [address] [place], [address] Lymphocytes/100 WBC (Bld) 25.3 % Normal 19-41 [facility] Comment on above: Performed By: #### L 500.4050, L100.0100 ####[facility] [address] [place], [address] MCH (RBC) [Entitic mass] 30.8 pg Normal 27.0-32.0 [facility] Comment on above: Performed By: #### L 500.4050, L100.0100 ####[facility] [address] [place], [address] MCHC (RBC) [Mass/Vol] 32.2 g/dL Normal 32-36 [facility] Comment on above: Performed By: #### L 500.4050, L100.0100 ####[facility] [address] [place], [address] MCV (RBC) [Entitic vol] 95.7 fL Normal 81-99 [facility] Comment on above: Performed By: #### L 500.4050, L100.0100 ####[facility] [address] [place], [address] Monocytes/100 WBC (Bld) 7.4 % Normal 0-10 [facility] Comment on above: Performed By: #### L 500.4050, L100.0100 ####[facility] [address] [place], [address] Neutrophils/100 WBC (Bld) 66.3 % Normal 47-70 [facility] Comment on above: Performed By: #### L 500.4050, L100.0100 ####[facility] [address] [place], [address] Nucleated RBC (Bld) [#/Vol] 0 10*3/uL Normal 0-5 [facility] Comment on above: Performed By: #### L 500.4050, L100.0100 ####[facility] [address] [place], [address] Platelet mean volume (Bld) [Entitic vol] 10.4 fL Normal 6.2-12.0 [facility] Comment on above: Performed By: #### L 500.4050, L100.0100 ####[facility] [address] [place], [address] Platelets (Bld) [#/Vol] 292 10*3/uL Normal 150-450 [facility] Comment on above: Performed By: #### L 500.4050, L100.0100 ####[facility] [address] [place], [address] RBC (Bld) [#/Vol] 3.73 10*6/uL Low 4.2-5.4 [facility] Comment on above: Performed By: #### L 500.4050, L100.0100 ####[facility] [address] [place], [address] RDW SD 47.2 fl High 35.1-43.9 [facility] Comment on above: Performed By: #### L 500.4050, L100.0100 ####[facility] [address] [place], [address] WBC (Bld) [#/Vol] 6.3 10*3/uL Normal 4.4-11.0 [facility] Comment on above: Performed By: #### L 500.4050, L100.0100 ####[facility] [address] [place], [address] Comprehensive Metabolic Prof [facility] 05-24-2024 Albumin [Mass/Vol] 3.5 g/dL Normal 3.2-5.0 [facility] Comment on above: Performed By: #### L 500.4050, L100.0100 ####[facility] [address] [place], [address] Albumin/Globulin [Mass ratio] 1.0 {ratio} Normal 0.9-2.4 [facility] Comment on above: Performed By: #### L 500.4050, L100.0100 ####[facility] [address] [place], [address] ALK P 112 U/L Normal 45-117 [facility] Comment on above: Performed By: #### L 500.4050, L100.0100 ####[facility] [address] [place], [address] ALT [Catalytic activity/Vol] 35 U/L Normal 13-56 [facility] Comment on above: Performed By: #### L 500.4050, L100.0100 ####[facility] [address] [place], [address] AST [Catalytic activity/Vol] 29 U/L Normal 15-37 [facility] Comment on above: Performed By: #### L 500.4050, L100.0100 ####[facility] [address] [place], [address] Bilirubin [Mass/Vol] 0.30 mg/dL Normal 0.20-1.00 [facility] Comment on above: Result Comment: For patients on eltrombopag therapy, use of Dimension Mason TBIL is not recommended. Performed By: #### L 500.4050, L100.0100 ####[facility] [address] [place], [address] BUN/CRE 34.7 RATIO High 10-20 [facility] Comment on above: Performed By: #### L 500.4050, L100.0100 ####[facility] [address] [place], [address] CA,Total 9.6 mg/dL Normal 8.5-10.1 [facility] Comment on above: Performed By: #### L 500.4050, L100.0100 ####[facility] [address] [place], [address] Chloride [Moles/Vol] 107 mmol/L Normal 98-107 [facility] Comment on above: Performed By: #### L 500.4050, L100.0100 ####[facility] [address] [place], [address] CO2 [Moles/Vol] 27.0 mmol/L Normal 21.0-32.0 [facility] Comment on above: Performed By: #### L 500.4050, L100.0100 ####[facility] [address] [place], [address] Creatinine [Mass/Vol] 0.58 mg/dL Normal 0.55-1.02 [facility] Comment on above: Result Comment: The validity of the calculated GFR GFRAA in patients over70 years has not been determined. Clinical correlation isessential. Performed By: #### L 500.4050, L100.0100 ####[facility] [address] [place], [address] ECRCL 109.25 ml/min Normal [facility] Comment on above: Performed By: #### L 500.4050, L100.0100 ####[facility] [address] [place], [address] EST GFR - AA 139 mL/min Normal >60 [facility] Comment on above: Result Comment: Afri can Ghanaian GFR Calc Performed By: #### L 500.4050, L100.0100 ####[facility] [address] [place], [address] GAP 5 Normal 5-15 [facility] Comment on above: Performed By: #### L 500.4050, L100.0100 ####[facility] [address] [place], [address] GFR/1.73 sq M.predicted among non-blacks MDRD (S/P/Bld) [Vol rate/Area] 115 mL/min/{1.73_m2} Normal >60 [facility] Comment on above: Result Comment: Non- GFR Calc Performed By: #### L 500.4050, L100.0100 ####[facility] [address] [place], [address] Globulin (S) [Mass/Vol] 3.5 g/dL Normal 2.2-4.2 [facility] Comment on above: Performed By: #### L 500.4050, L100.0100 ####[facility] [address] [place], [address] Glucose [Mass/Vol] 108 mg/dL High 74-106 [facility] Comment on above: Result Comment: Fast ing Glucose result from 100 to 125 mg/dLsuggests IMPAIRED HOMEOSTASIS per A.D.A. criteria. Performed By: #### L 500.4050, L100.0100 ####[facility] [address] [place], [address] Potassium [Moles/Vol] 3.7 mmol/L Normal 3.5-5.1 [facility] Comment on above: Performed By: #### L 500.4050, L100.0100 ####[facility] [address] [place], [address] Sodium [Moles/Vol] 139 mmol/L Normal 136-145 [facility] Comment on above: Performed By: #### L 500.4050, L100.0100 ####[facility] [address] [place], [address] T PROT 7.0 g/dL Normal 6.4-8.2 [facility] Comment on above: Performed By: #### L 500.4050, L100.0100 ####[facility] [address] [place], [address] Urea nitrogen [Mass/Vol] 20 mg/dL High 7-18 [facility] Comment on above: Performed By: #### L 500.4050, L100.0100 ####[facility] [address] [place], [address] Oncology Visit Reporton 05-13 Oncology Visit Report Normal [facility] CBC W/Diff, Automatedon 04-13 Absolute Lymph 0.68 X10 3/uL Low 0.83-4.51 [facility] Comment on above: Performed By: #### L 500.4050, L100.0100, L501.2300 ####[facility] [address], [address] Absolute Neut 5.9 X10 3/uL Normal 2.0-7.7 [facility] Comment on above: Performed By: #### L 500.4050, L100.0100, L501.2300 ####[facility] [address], [address] Basophils/100 WBC (Bld) 0.3 % Normal 0-1 [facility] Comment on above: Performed By: #### L 500.4050, L100.0100, L501.2300 ####[facility] [address] [place], [address] Eosinophils/100 WBC (Bld) 0.0 % Normal 0-5 [facility] Comment on above: Performed By: #### L 500.4050, L100.0100, L501.2300 ####[facility] [address] [place], [address] Erythrocyte distribution width (RBC) [Ratio] 13.5 % Normal 11.6-14.6 [facility] Comment on above: Performed By: #### L 500.4050, L100.0100, L501.2300 ####[facility] [address] [place], [address] Hematocrit (Bld) [Volume fraction] 33.9 % Low 37-47 [facility] Comment on above: Performed By: #### L 500.4050, L100.0100, L501.2300 ####[facility] [address] [place], [address] Hemoglobin (Bld) [Mass/Vol] 11.3 g/dL Low 12.0-15.0 [facility] Comment on above: Performed By: #### L 500.4050, L100.0100, L501.2300 ####[facility] [address] [place], [address] IG% 0.400 Normal 0.0-0.9 [facility] Comment on above: Result Comment: IG% - Immature Granulocytes (promyelocytes, myelocytes andmetamyelocytes) > 1% indicates that a LEFT SHIFT is Present. Performed By: #### L 500.4050, L100.0100, L501.2300 ####[facility] [address] [place], [address] Lymphocytes/100 WBC (Bld) 9.7 % Low 19-41 [facility] Comment on above: Performed By: #### L 500.4050, L100.0100, L501.2300 ####[facility] [address] [place], [address] MCH (RBC) [Entitic mass] 31.5 pg Normal 27.0-32.0 [facility] Comment on above: Performed By: #### L 500.4050, L100.0100, L501.2300 ####[facility] [address] [place], [address] MCHC (RBC) [Mass/Vol] 33.3 g/dL Normal 32-36 [facility] Comment on above: Performed By: #### L 500.4050, L100.0100, L501.2300 ####[facility] [address] [place], [address] MCV (RBC) [Entitic vol] 94.4 fL Normal 81-99 [facility] Comment on above: Performed By: #### L 500.4050, L100.0100, L501.2300 ####[facility] [address] [place], [address] Monocytes/100 WBC (Bld) 5.0 % Normal 0-10 [facility] Comment on above: Performed By: #### L 500.4050, L100.0100, L501.2300 ####[facility] [address] [place], [address] Neutrophils/100 WBC (Bld) 84.6 % High 47-70 [facility] Comment on above: Performed By: #### L 500.4050, L100.0100, L501.2300 ####[facility] [address] [place], [address] Nucleated RBC (Bld) [#/Vol] 0 10*3/uL Normal 0-5 [facility] Comment on above: Performed By: #### L 500.4050, L100.0100, L501.2300 ####[facility] [address] [place], [address] Platelet mean volume (Bld) [Entitic vol] 9.4 fL Normal 6.2-12.0 [facility] Comment on above: Performed By: #### L 500.4050, L100.0100, L501.2300 ####[facility] [address] [place], [address] Platelets (Bld) [#/Vol] 685 10*3/uL High 150-450 [facility] Comment on above: Performed By: #### L 500.4050, L100.0100, L501.2300 ####[facility] [address] [place], [address] RBC (Bld) [#/Vol] 3.59 10*6/uL Low 4.2-5.4 [facility] Comment on above: Performed By: #### L 500.4050, L100.0100, L501.2300 ####[facility] [address] [place], [address] RDW SD 46.3 fl High 35.1-43.9 [facility] Comment on above: Performed By: #### L 500.4050, L100.0100, L501.2300 ####[facility] [address] [place], [address] WBC (Bld) [#/Vol] 7.0 10*3/uL Normal 4.4-11.0 [facility] Comment on above: Performed By: #### L 500.4050, L100.0100, L501.2300 ####[facility] [address] [place], [address] Comprehensive Metabolic Prof [facility] 05-10-2024 Albumin [Mass/Vol] 3.8 g/dL Normal 3.2-5.0 [facility] Comment on above: Performed By: #### L 500.4050, L100.0100, L501.2300 ####[facility] [address] [place], [address] Albumin/Globulin [Mass ratio] 1.0 {ratio} Normal 0.9-2.4 [facility] Comment on above: Performed By: #### L 500.4050, L100.0100, L501.2300 ####[facility] [address] [place], [address] ALK P 99 U/L Normal 45-117 [facility] Comment on above: Performed By: #### L 500.4050, L100.0100, L501.2300 ####[facility] [address] [place], [address] ALT [Catalytic activity/Vol] 22 U/L Normal 13-56 [facility] Comment on above: Performed By: #### L 500.4050, L100.0100, L501.2300 ####[facility] [address] [place], [address] AST [Catalytic activity/Vol] 23 U/L Normal 15-37 [facility] Comment on above: Performed By: #### L 500.4050, L100.0100, L501.2300 ####[facility] [address] [place], [address] Bilirubin [Mass/Vol] 0.50 mg/dL Normal 0.20-1.00 [facility] Comment on above: Result Comment: For patients on eltrombopag therapy, use of Dimension Mason TBIL is not recommended. Performed By: #### L 500.4050, L100.0100, L501.2300 ####[facility] [address] [place], [address] BUN/CRE 29.5 RATIO High 10-20 [facility] Comment on above: Performed By: #### L 500.4050, L100.0100, L501.2300 ####[facility] [address] [place], [address] CA,Total 9.8 mg/dL Normal 8.5-10.1 [facility] Comment on above: Performed By: #### L 500.4050, L100.0100, L501.2300 ####[facility] [address] [place], [address] Chloride [Moles/Vol] 109 mmol/L High 98-107 [facility] Comment on above: Performed By: #### L 500.4050, L100.0100, L501.2300 ####[facility] [address] [place], [address] CO2 [Moles/Vol] 24.0 mmol/L Normal 21.0-32.0 [facility] Comment on above: Performed By: #### L 500.4050, L100.0100, L501.2300 ####[facility] [address] [place], [address] Creatinine [Mass/Vol] 0.61 mg/dL Normal 0.55-1.02 [facility] Comment on above: Result Comment: The validity of the calculated GFR GFRAA in patients over70 years has not been determined. Clinical correlation isessential. Performed By: #### L 500.4050, L100.0100, L501.2300 ####[facility] [address] [place], [address] ECRCL 103.88 ml/min Normal [facility] Comment on above: Performed By: #### L 500.4050, L100.0100, L501.2300 ####[facility] [address] [place], [address] EST GFR - AA 130 mL/min Normal >60 [facility] Comment on above: Result Comment: Afri can Ghanaian GFR Calc Performed By: #### L 500.4050, L100.0100, L501.2300 ####[facility] [address] [place], [address] GAP 7 Normal 5-15 [facility] Comment on above: Performed By: #### L 500.4050, L100.0100, L501.2300 ####[facility] [address] [place], [address] GFR/1.73 sq M.predicted among non-blacks MDRD (S/P/Bld) [Vol rate/Area] 108 mL/min/{1.73_m2} Normal >60 [facility] Comment on above: Result Comment: Non- GFR Calc Performed By: #### L 500.4050, L100.0100, L501.2300 ####[facility] [address] [place], [address] Globulin (S) [Mass/Vol] 3.8 g/dL Normal 2.2-4.2 [facility] Comment on above: Performed By: #### L 500.4050, L100.0100, L501.2300 ####[facility] [address] [place], [address] Glucose [Mass/Vol] 112 mg/dL High 74-106 [facility] Comment on above: Result Comment: Fast ing Glucose result from 100 to 125 mg/dLsuggests IMPAIRED HOMEOSTASIS per A.D.A. criteria. Performed By: #### L 500.4050, L100.0100, L501.2300 ####[facility] [address] [place], [address] Potassium [Moles/Vol] 3.9 mmol/L Normal 3.5-5.1 [facility] Comment on above: Performed By: #### L 500.4050, L100.0100, L501.2300 ####[facility] [facility] [id number] [place], [address] Sodium [Moles/Vol] 140 mmol/L Normal 136-145 [facility] Comment on above: Performed By: #### L [id number], L100.0100, L501.2300 ####[facility] [address] [place], [address] T PROT 7.6 g/dL Normal 6.4-8.2 [facility] Comment on above: Performed By: #### L [id number], L100.0100, [id number] ####[facility] [address] [place], [address] Urea nitrogen [Mass/Vol] 18 mg/dL Normal 7-18 [facility] Comment on above: Performed By: #### L [id number], L100.0100, [id number] ####[facility] [address] [place], [address] Oncology Visit Reporton 04-13 Oncology Visit Report Normal [facility] Phosphoruson 05-10-2024 Phosphate [Mass/Vol] 3.5 mg/dL Normal 2.5-4.9 [facility] Comment on above: Performed By: #### L [id number], L100.0100, [id number] ####[facility] [address] [place], [address] Blood band neutrophil count as percentage of total leukocytesOrdered By: Barry Arrington on 04-26-2024 Band form neutrophils/100 WBC (Bld) 4 % 0-5 [facility] Blood lymphocytes/100 leukoc ytesOrdered By: Barry Arrington on 04-26-2024 Lymphocytes/100 WBC (Bld) 14 % Low 19-41 [facility] Blood metamyelocytes/100 montrell kocytesOrdered By: Barry Arrington on 04-26-2024 Metamyelocytes/100 WBC (Bld) 2 % High 0-1 [facility] Blood monocytes/100 leukocyt esOrdered By: Barry Arrington on 04-26-2024 Monocytes/100 WBC (Bld) 1 % 0-10 [facility] Blood segmented neutrophils/ 100 leukocytesOrdered By: Barry Arrington on 04-26-2024 Segmented neutrophils/100 WBC (Bld) 72 % High 47-70 [facility] Cells counted Molgen (Bld/Ti ss) [#]Ordered By: Barry Arrington on 04-26-2024 Differential Total Cells Counted 100 MANUAL DIFF [facility] Myelocyte %Ordered By: Yael Arrington on 04-26-2024 Myelocytes/100 WBC (Bld) 7 % High 0-0 [facility] Pathologist review Eliecer (Unsp spec) [Interp]Ordered By: Barry Arrington on 04-26-2024 Differential Pathologist's Review Reviewed [facility] Comment on above: Previous reported re sult: Perri meier Edited by: ANDERSON on 04/27/24:0757Neutrophilic leukocytosis with left shift.Clinical correlation necessary.Jamil Hernandez M.D. 04/27/24 AMENDED REPORT 04/27/24 2097 PATH REV previously reported as: Perri meier Review by pathologistOrdered By: Barry Arrington on 04-26-2024 Pathologist review Eliecer (Unsp spec) [Interp] Reviewed [facility] Comment on above: Previous reported re sult: January hardeep Edited by: ANDERSON on 04/27/24:0307Neutrophilic leukocytosis with left shift.Clinical correlation necessary.Jamil Hernandez M.D. 04/27/24 AMENDED REPORT 04/27/24 2697 PATH REV previously reported as: January hardeep Segmented neutrophils/100 WB C (Bld)Ordered By: Barry Arrington on 04-26-2024 Neutrophils/100 WBC (Bld) 72 % High 47-70 [facility] Smudge cell detectionOrdered By: Barry Arrington on 04-26-2024 Smudge cells LM Ql (Bld) RARE [facility] Smudge cells LM Ql (Bld)Orde red By: Barry Arrington on 04-26-2024 Smudge Cells RARE [facility] Total cell countOrdered By: Barry Arrington on 04-26-2024 Cells counted Molgen (Bld/Tiss) [#] 100 MANUAL DIFF [facility] Estradiol measurementOrdered By: Silvino Collins on 03-20-2024 Estradiol (E2) Level 11.8 pg/mL [facility] Comment on above: NORMAL REFERENCE RAN [...] 03-20-2024 LDH [Catalytic activity/Vol] 215 U/L 84-246 [facility] Absolute lymphocyte countOrd ered By: Carrillo Driscoll on 12-28-2023 Lymphocytes Auto (Unsp spec) [#/Vol] 3.08 10*3/uL 0.83-4.51 [facility] Automated lymphocyte count a s percentage of total leukocytesOrdered By: Carrillo Driscoll on 12-28-2023 Lymphocytes/100 WBC Auto (Unsp spec) 48.4 % 19-41 [facility] Basophil percentageOrdered B y: Carrillo Driscoll on 12-28-2023 Basophils/100 WBC (Bld) 1.4 % 0-1 [facility] Bilirubin [Mass/Vol] 1.10 mg/dL 0.20-1.00 [facility] Comment on above: For patients on eltr ombopag therapy, use of Dimension Mason TBIL is not recommended. Chloride [Moles/Vol] 105 mmol/L 98-107 [facility] Eosinophils/100 WBC (Bld) 0.9 % 0-5 [facility] Glucose [Mass/Vol] 85 mg/dL 74-106 [facility] Hemoglobin (Bld) [Mass/Vol] 12.6 g/dL 12.0-15.0 [facility] Monocytes/100 WBC (Bld) 9.0 % 0-10 [facility] Neutrophils (Bld) [#/Vol] 2.6 10*3/uL 2.0-7.7 [facility] Neutrophils/100 WBC (Bld) 40.1 % 47-70 [facility] Potassium [Moles/Vol] 4.0 mmol/L 3.5-5.1 [facility] Protein [Mass/Vol] 7.6 g/dL 6.4-8.2 [facility] Sodium [Moles/Vol] 138 mmol/L 136-145 [facility] WBC (Bld) [#/Vol] 6.4 10*3/uL 4.4-11.0 [facility] Determination of erythrocyte mean corpuscular volume (MCV)Ordered By: Carrillo Driscoll on 12-28-2023 MCV (RBC) [Entitic vol] 94.3 fL 81-99 [facility] Erythrocyte distribution wid th ratioOrdered By: Carrillo Driscoll on 12-28-2023 Erythrocyte distribution width (RBC) [Ratio] 12.1 % 11.6-14.6 [facility] Erythrocyte distribution wid th standard deviationOrdered By: Carrillo Driscoll on 12-28-2023 Erythrocyte distribution width (RBC) [Entitic vol] 42.0 fL 35.1-43.9 [facility] Hematocrit Auto (Bld) [Volum e fraction]Ordered By: Carrillo Driscoll on 12-28-2023 Hematocrit (Bld) [Volume fraction] 38.3 % 37-47 [facility] Immature granulocytes/100 WB C Auto (Bld)Ordered By: Carrillo Driscoll on 12-28-2023 Immature granulocytes/100 WBC (Bld) 0.200 % 0.0-0.9 [facility] Comment on above: IG% - Immature Granu locytes (promyelocytes, myelocytes and metamyelocytes) > 1% indicates that a LEFT SHIFT is Present. Laboratory - Chemistry and C hemistry - challengeOrdered By: Carrillo Driscoll on 12-28-2023 Albumin/Globulin [Mass ratio] 1.1 {ratio} 0.9-2.4 [facility] ALP [Catalytic activity/Vol] 100 U/L 45-117 [facility] ALT [Catalytic activity/Vol] 33 U/L 13-56 [facility] CO2 [Moles/Vol] 28.0 mmol/L 21.0-32.0 [facility] Globulin (S) [Mass/Vol] 3.7 g/dL 2.2-4.2 [facility] Urea nitrogen/Creatinine [Mass ratio] 32.9 mg/mg 10-20 [facility] Laboratory - Hematology and Cell countsOrdered By: Carrillo Driscoll on 12-28-2023 MCH (RBC) [Entitic mass] 31.0 pg 27.0-32.0 [facility] MCHC (RBC) [Mass/Vol] 32.9 g/dL 32-36 [facility] Nucleated RBC/100 WBC (Bld) [Ratio] 0 % 0-5 [facility] Platelet mean volume (Bld) [Entitic vol] 10.3 fL 6.2-12.0 [facility] Platelets (Bld) [#/Vol] 425 10*3/uL 150-450 [facility] No Panel InformationOrdered By: Carrillo Driscoll on 12-28-2023 Estimated GFR (MDRD) Amer 124 mL/min >60 [facility] Comment on above: GFR Calc Estimated GFR (MDRD) Non-Af Amer 103 mL/min >60 [facility] Comment on above: Non- GFR Calc RBC Auto (Bld) [#/Vol]Ordere d By: Carrillo Driscoll on 12-28-2023 RBC (Bld) [#/Vol] 4.06 10*6/uL 4.2-5.4 [facility] Serum or plasma calcium royal urement (mass/volume)Ordered By: Carrillo Driscoll on 12-28-2023 Calcium [Mass/Vol] 9.3 mg/dL 8.5-10.1 [facility] Serum or plasma creatinine m easurement (mass/volume)Ordered By: Carrillo Driscoll on 12-28-2023 Creatinine [Mass/Vol] 0.64 mg/dL 0.55-1.02 [facility] Comment on above: The validity of the calculated GFR & GFRAA in patients over 70 years has not been determined. Clinical correlation is essential. Serum or plasma thyroid stim ulating hormone (TSH) measurement (units/volume)Ordered By: Carrillo Driscoll on 12-28-2023 TSH Qn 2.49 uIU/mL 0.358-3.74 [facility] Serum or plasma urea nitroge n measurement (mass/volume)Ordered By: Carrillo Driscoll on 12-28-2023 Urea nitrogen [Mass/Vol] 21 mg/dL 7-18 [facility] Thin prep Papanicolaou smear with manual screeningOrdered By: Carrillo Driscoll on 12-28-2023 Thin prep Papanicolaou smear with manual screening 3.9 g/dL 3.2-5.0 [facility] Thin prep Papanicolaou smear with manual screening 33 U/L 15-37 [facility] Thin prep Papanicolaou smear with manual screening 5 5-15 [facility] Office Visiton 06-03-2017 Documentation of current medications (procedure) Done Invalid Interpretation Code [facility] Work Phone: Tobacco use [facility] Former smoker Invalid Interpretation Code [facility] Work Phone: Office Visiton 03-23-2017 Documentation of current medications (procedure) Done Invalid Interpretation Code [facility] Work Phone: Protein mass conc Done [facility] Work Phone: [phone] Tobacco smoking status MAIS Former smoker [facility] Work Phone: [phone] Tobacco use [facility] Former smoker Invalid Interpretation Code [facility] Work Phone: [phone] Office Visiton 02-21-2017 Documentation of current medications (procedure) Done Invalid Interpretation Code [facility] Work Phone: [phone] [facility] conc [facility] Work Phone: [phone] Tobacco smoking status MAIS Former smoker [facility] Work Phone: [phone] Tobacco use [facility] Former smoker Invalid Interpretation Code [facility] Work Phone: [phone] Office Visiton 01-21-2017 Documentation of current medications (procedure) Done Invalid Interpretation Code [facility] Work Phone: [phone] Protein mass conc [facility] Work Phone: [phone] Tobacco smoking status MAIS Former smoker [facility] Work Phone: [phone] Tobacco use [facility] Former smoker Invalid Interpretation Code [facility] Work Phone: [phone] Office Visiton 12-26-2015 Protein mass conc yes [facility] Work Phone: [phone] Smoking cessation education (procedure) yes Invalid Interpretation Code [facility] Work Phone: [phone] Lab Report: CBCDon 1 Erythrocytes (RBC) 4.08 10*6/uL Low 4.2-5.4 [facility] Work Phone: [phone] Hematocrit (Bld) [Volume fraction] 40.4 % Normal 37-47 [facility] Work Phone: [phone] Hematocrit (HCT) 40.4 % Normal 37-47 [facility] Work Phone: [phone] Hemoglobin (Bld) [Mass/Vol] 14.1 g/dL Normal 12.0-16.0 [facility] Work Phone: [phone] Platelets 282 10*3/mm3 Normal 150-450 [facility] Work Phone: [phone] Platelets (Bld) [#/Vol] 282 10*3/mm3 Normal 150-450 [facility] Work Phone: [phone] RBC (Bld) [#/Vol] 4.08 10*6/uL Low 4.2-5.4 [facility] Work Phone: [phone] WBC (Bld) [#/Vol] 4.7 10*3/uL Normal 4.4-11.0 [facility] Work Phone: [phone] WBC (Leukocytes) 4.7 10*3/uL Normal 4.4-11.0 [facility] Work Phone: [phone] Lab Report: Johanna 09-07-20 11 GE use only - for [employer] import when terms are not otherwise specified Negative Normal 0-9 Nonpreg [facility] Work Phone: [phone] tPREGS Negative Normal 0-9 Nonpreg [facility] Work Phone: [phone] Vital Signs Date Time Vital Sign Value Performing Clinician Facility 04-18-2025 12:32-0400 Body temperature 98.7 [degF] Dr. Carrillo Driscoll MD Work Phone: [facility] 04-18-2025 12:32-0400 Diastolic blood pressure 96 mm[Hg] Dr. Carrillo Driscoll MD Work Phone: [facility] 04-18-2025 12:32-0400 Heart rate 68 /min Dr. Carrillo Driscoll MD Work Phone: [facility] 04-18-2025 12:32-0400 Respiratory rate 18 /min Dr. Carrillo Driscoll MD Work Phone: [facility] 04-18-2025 12:32-0400 SaO2% (BldA) [Mass fraction] 99 % Dr. Carrillo Driscoll MD Work Phone: 5(790)435-198687 [place] [address] 04-18-2025 12:32-0400 Systolic blood pressure 170 mm[Hg] Dr. Carrillo Driscoll MD Work Phone: 6(142)931-295288 [place] [address] 04-18-2025 11:19-0400 Body height 172.[address] Carrillo Driscoll MD Work Phone: 1(416)426-918588 [place] [address] 04-18-2025 11:19-0400 Body mass index (BMI) [Ratio] 25.4 kg/m2 Dr. Carrillo Driscoll MD Work Phone: 9(555)021-369388 [place] [address] 04-18-2025 11:19-0400 Body weight [address] Carrillo Driscoll MD Work Phone: 5(626)013-878988 [place] [address] 02-27-2025 13:43-0400 Body height 172.[address] Carrillo Driscoll MD Work Phone: 2(546)854-299788 [place] [address] 02-27-2025 13:43-0400 Body mass index (BMI) [Ratio] 25.4 kg/m2 Dr. Carrillo Driscoll MD Work Phone: 5(484)445-694988 [place] [address] 02-27-2025 13:43-0400 Body temperature 98.5 [degF] Dr. Carrillo Driscoll MD Work Phone: 2(786)887-508588 [place] [address] 02-27-2025 13:43-0400 Body weight 75.[address] Carrillo Driscoll MD Work Phone: 4(285)854-068188 [place] [address] 02-27-2025 13:43-0400 Diastolic blood pressure 86 mm[Hg] Dr. Carrillo Driscoll MD Work Phone: 9(284)882-775188 [place] [address] 02-27-2025 13:43-0400 Heart rate 72 /min Dr. Carrillo Driscoll MD Work Phone: 9(373)349-304488 [place] [address] 02-27-2025 13:43-0400 Respiratory rate 18 /min Dr. Carrillo Driscoll MD Work Phone: 3(319)648-279787 [place] [address] 02-27-2025 13:43-0400 SaO2% (BldA) [Mass fraction] 100 % Dr. Carrillo Driscoll MD Work Phone: [facility] 02-27-2025 13:43-0400 Systolic blood pressure 148 mm[Hg] Dr. Carrillo Driscoll MD Work Phone: [facility] 02-22-2025 09:28-0400 Diastolic blood pressure 87 mm[Hg] Dr. Carrillo Driscoll MD Work Phone: 8(575)705-120487 [place] [address] 02-22-2025 09:28-0400 Heart rate 79 /min Dr. Carrillo Driscoll MD Work Phone: 1(363)921-625387 [place] [address] 02-22-2025 09:28-0400 Respiratory rate 18 /min Dr. Carrillo Driscoll MD Work Phone: 6(484)862-857087 [place] [address] 02-22-2025 09:28-0400 SaO2% (BldA) [Mass fraction] 98 % Dr. Carrillo Driscoll MD Work Phone: [facility] 02-22-2025 09:28-0400 Systolic blood pressure 129 mm[Hg] Dr. Carrillo Driscoll MD Work Phone: 2(626)320-663887 [place] [address] 02-20-2025 10:28-0400 Body temperature 98.1 [degF] Dr. Carrillo Driscoll MD Work Phone: [facility] 02-20-2025 10:28-0400 Diastolic blood pressure 62 mm[Hg] Dr. Carrillo Driscoll MD Work Phone: [facility] 02-20-2025 10:28-0400 Heart rate 82 /min Dr. Carrillo Driscoll MD Work Phone: [facility] 02-20-2025 10:28-0400 Respiratory rate 16 /min Dr. Carrillo Driscoll MD Work Phone: [facility] 02-20-2025 10:28-0400 SaO2% (BldA) [Mass fraction] 98 % Dr. Carrillo Driscoll MD Work Phone: [facility] 02-20-2025 10:28-0400 Systolic blood pressure 120 mm[Hg] Dr. Carrillo Driscoll MD Work Phone: 9(790)481-990887 [place] [address] 02-20-2025 08:26-0400 Body height 172.[address] Carrillo Driscoll MD Work Phone: 8(588)776-228188 [place] [address] 02-20-2025 08:26-0400 Body mass index (BMI) [Ratio] 24.7 kg/m2 Dr. Carrillo Driscoll MD Work Phone: 6(029)098-840888 [place] [address] 02-20-2025 08:26-0400 Body weight 73.[address] Carrillo Driscoll MD Work Phone: 2(225)814-434988 [place] [address] 02-15-2025 08:18-0400 Diastolic blood pressure 82 mm[Hg] Dr. Carrillo Driscoll MD Work Phone: 5(812)998-351388 [place] [address] 02-15-2025 08:18-0400 Heart rate 77 /min Dr. Carrillo Driscoll MD Work Phone: 9(645)180-660788 [place] [address] 02-15-2025 08:18-0400 Respiratory rate 18 /min Dr. Carrillo Driscoll MD Work Phone: 0(398)646-465888 [place] [address] 02-15-2025 08:18-0400 SaO2% (BldA) [Mass fraction] 95 % Dr. Carrillo Driscoll MD Work Phone: 3(233)934-112788 [place] [address] 02-15-2025 08:18-0400 Systolic blood pressure 132 mm[Hg] Dr. Carrillo Driscoll MD Work Phone: 3(553)299-200487 [place] [address] 02-13-2025 12:44-0400 Body temperature 99.3 [degF] Dr. Carrillo Driscoll MD Work Phone: 9(271)536-077388 [place] [address] 02-13-2025 12:44-0400 Diastolic blood pressure 79 mm[Hg] Dr. Carrillo Driscoll MD Work Phone: 6(425)543-274888 [place] [address] 02-13-2025 12:44-0400 Heart rate 77 /min Dr. Carrillo Driscoll MD Work Phone: 2(254)703-528888 [place] [address] 02-13-2025 12:44-0400 Respiratory rate 16 /min Dr. Carrillo Driscoll MD Work Phone: 1(098)545-852487 [place] [address] 02-13-2025 12:44-0400 SaO2% (BldA) [Mass fraction] 100 % Dr. Carrillo Driscoll MD Work Phone: 3(893)210-443788 [place] [address] 02-13-2025 12:44-0400 Systolic blood pressure 145 mm[Hg] Dr. Carrillo Driscoll MD Work Phone: 1(845)666-656788 [place] [address] 02-13-2025 10:07-0400 Body height 172.[address] Carrillo Driscoll MD Work Phone: 5(485)990-886288 [place] [address] 02-13-2025 10:07-0400 Body mass index (BMI) [Ratio] 25.1 kg/m2 Dr. Carrillo Driscoll MD Work Phone: 3(256)369-760888 [place] [address] 02-13-2025 10:07-0400 Body weight [address] Carrillo Driscoll MD Work Phone: 5(491)620-978588 [place] [address] 01-25-2025 09:06-0400 Body height 172.[address] Carrillo Driscoll MD Work Phone: 3(799)388-293488 [place] [address] 01-24-2025 10:04-0400 Body height 172.[address] Carrillo Driscoll MD Work Phone: 7(033)409-880388 [place] [address] 12-04-2024 14:08-0400 Body height 172.[address] Carrillo Driscoll MD Work Phone: 0(023)823-046088 [place] [address] 12-04-2024 14:08-0400 Body mass index (BMI) [Ratio] 24.5 kg/m2 Dr. Carrillo Driscoll MD Work Phone: 7(839)508-994188 [place] [address] 12-04-2024 14:08-0400 Body temperature 98.5 [degF] Dr. Carrillo Driscoll MD Work Phone: 7(601)320-840888 [place] [address] 12-04-2024 14:08-0400 Body weight 73.[address] Carrillo Driscoll MD Work Phone: 0(907)743-311488 [place] [address] 12-04-2024 14:08-0400 Diastolic blood pressure 88 mm[Hg] Dr. Carrillo Driscoll MD Work Phone: [facility] 12-04-2024 14:08-0400 Heart rate 76 /min Dr. Carrillo Driscoll MD Work Phone: [facility] 12-04-2024 14:08-0400 Respiratory rate 18 /min Dr. Carrillo Driscoll MD Work Phone: [facility] 12-04-2024 14:08-0400 SaO2% (BldA) [Mass fraction] 98 % Dr. Carrillo rDiscoll MD Work Phone: [facility] 12-04-2024 14:08-0400 Systolic blood pressure 149 mm[Hg] Dr. Carrillo Driscoll MD Work Phone: 4(425)273-483276 [address] 11-30-2024 13:45-0400 Diastolic blood pressure 82 mm[Hg] Dr. Carrillo Driscoll MD Work Phone: 0(148)537-043776 [address] 11-30-2024 13:45-0400 Heart rate 76 /min Dr. Carrillo Driscoll MD Work Phone: [facility] 11-30-2024 13:45-0400 Respiratory rate 18 /min Dr. Carrillo Driscoll MD Work Phone: [facility] 11-30-2024 13:45-0400 SaO2% (BldA) [Mass fraction] 98 % Dr. Carrillo Drisclol MD Work Phone: [facility] 11-30-2024 13:45-0400 Systolic blood pressure 119 mm[Hg] Dr. Carrillo Driscoll MD Work Phone: [facility] 11-27-2024 13:02-0400 Body height 172.[address] Carrillo Driscoll MD Work Phone: 4(685)659-089187 [place] [address] 11-27-2024 13:02-0400 Body mass index (BMI) [Ratio] 23.9 kg/m2 Dr. Carrillo Driscoll MD Work Phone: [facility] 11-27-2024 13:02-0400 Body temperature 98.9 [degF] Dr. Carrillo Driscoll MD Work Phone: [facility] 11-27-2024 13:02-0400 Body weight 71.[address] Carrillo Driscoll MD Work Phone: [facility] 11-27-2024 13:02-0400 Diastolic blood pressure 86 mm[Hg] Dr. Carrillo Driscoll MD Work Phone: 0(521)437-229187 [place] [address] 11-27-2024 13:02-0400 Heart rate 98 /min Dr. Carrillo Driscoll MD Work Phone: [facility] 11-27-2024 13:02-0400 Respiratory rate 16 /min Dr. Carrillo Driscoll MD Work Phone: 5(033)628-630787 [place] [address] 11-27-2024 13:02-0400 SaO2% (BldA) [Mass fraction] 100 % Dr. Carrillo Driscoll MD Work Phone: 9(496)997-624387 [place] [address] 11-27-2024 13:02-0400 Systolic blood pressure 145 mm[Hg] Dr. Carrillo Driscoll MD Work Phone: [facility] 11-19-2024 14:44-0400 Body mass index (BMI) [Ratio] 23.9 kg/m2 Dr. Carrillo Driscoll MD Work Phone: [facility] 11-19-2024 14:44-0400 Body temperature 99.2 [degF] Dr. Carrillo Driscoll MD Work Phone: [facility] 11-19-2024 14:44-0400 Body weight 71.[address] Carrillo Driscoll MD Work Phone: [facility] 11-19-2024 14:44-0400 Diastolic blood pressure 93 mm[Hg] Dr. Carrillo Driscoll MD Work Phone: [facility] 11-19-2024 14:44-0400 Heart rate 77 /min Dr. Carrillo Dricsoll MD Work Phone: [facility] 11-19-2024 14:44-0400 Respiratory rate 18 /min Dr. Carrillo Driscoll MD Work Phone: 2(553)076-619988 [place] [address] 11-19-2024 14:44-0400 SaO2% (BldA) [Mass fraction] 100 % Dr. Carrillo Driscoll MD Work Phone: 1(389)866-917688 [place] [address] 11-19-2024 14:44-0400 Systolic blood pressure 167 mm[Hg] Dr. Carrillo Driscoll MD Work Phone: 0(402)582-988288 [place] [address] 09-13-2024 10:37-0500 Body mass index (BMI) [Ratio] 25 kg/m2 Dr. Carrillo Driscoll MD Work Phone: 7(120)714-293188 [place] [address] 09-13-2024 10:37-0500 Body temperature 97.8 [degF] Dr. Carrillo Driscoll MD Work Phone: 8(608)530-912388 [place] [address] 09-13-2024 10:37-0500 Body weight 74.[address] Carrillo Driscoll MD Work Phone: 0(465)319-837788 [place] [address] 09-13-2024 10:37-0500 Diastolic blood pressure 95 mm[Hg] Dr. Carrillo Driscoll MD Work Phone: 0(026)022-783488 [place] [address] 09-13-2024 10:37-0500 Heart rate 82 /min Dr. Carrillo Driscoll MD Work Phone: 7(736)710-778788 [place] [address] 09-13-2024 10:37-0500 Respiratory rate 18 /min Dr. Carrillo Driscoll MD Work Phone: 6(994)366-893688 [place] [address] 09-13-2024 10:37-0500 SaO2% (BldA) [Mass fraction] 99 % Dr. Carrillo Driscoll MD Work Phone: 1(323)966-230788 [place] [address] 09-13-2024 10:37-0500 Systolic blood pressure 165 mm[Hg] Dr. Carrillo Driscoll MD Work Phone: 4(247)531-983888 [place] [address] 09-03-2024 11:09-0500 Body mass index (BMI) [Ratio] 25 kg/m2 Dr. Carrillo Driscoll MD Work Phone: 2(546)750-453088 [place] [address] 09-03-2024 11:09-0500 Body weight 74.[address] Carrillo Driscoll MD Work Phone: [facility] 09-03-2024 11:09-0500 Diastolic blood pressure 85 mm[Hg] Dr. Carrillo Driscoll MD Work Phone: [facility] 09-03-2024 11:09-0500 Systolic blood pressure 153 mm[Hg] Dr. Carrillo Driscoll MD Work Phone: [facility] 08-20-2024 14:22-0500 Body mass index (BMI) [Ratio] 24.5 kg/m2 Dr. Carrillo Driscoll MD Work Phone: 1(660)350-772687 [place] [address] 08-20-2024 14:22-0500 Body temperature 97.8 [degF] Dr. Carrillo Driscoll MD Work Phone: 5(198)877-519587 [place] [address] 08-20-2024 14:22-0500 Body weight 73.[address] Carrillo Driscoll MD Work Phone: 7(858)672-956587 [place] [address] 08-20-2024 14:22-0500 Diastolic blood pressure 88 mm[Hg] Dr. Carrillo Driscoll MD Work Phone: 9(215)760-830187 [place] [address] 08-20-2024 14:22-0500 Heart rate 72 /min Dr. Carrillo Driscoll MD Work Phone: [facility] 08-20-2024 14:22-0500 Respiratory rate 18 /min Dr. Carrillo Driscoll MD Work Phone: [facility] 08-20-2024 14:22-0500 SaO2% (BldA) [Mass fraction] 98 % Dr. Carrillo Driscoll MD Work Phone: [facility] 08-20-2024 14:22-0500 Systolic blood pressure 145 mm[Hg] Dr. Carrillo Driscoll MD Work Phone: [facility] 08-13-2024 11:56-0500 Body mass index (BMI) [Ratio] 24.5 kg/m2 Dr. Carrillo Driscoll MD Work Phone: [facility] 08-13-2024 11:56-0500 Body temperature 97.9 [degF] Dr. Carrillo Driscoll MD Work Phone: [facility] 08-13-2024 11:56-0500 Body weight 73.[address] Carrillo Driscoll MD Work Phone: 2(302)585-303387 [place] [address] 08-13-2024 11:56-0500 Diastolic blood pressure 85 mm[Hg] Dr. Carrillo Driscoll MD Work Phone: 6(171)457-782688 [place] [address] 08-13-2024 11:56-0500 Heart rate 80 /min Dr. Carrillo Driscoll MD Work Phone: 6(643)218-773688 [place] [address] 08-13-2024 11:56-0500 Respiratory rate 18 /min Dr. Carrillo Driscoll MD Work Phone: 2(644)735-753888 [place] [address] 08-13-2024 11:56-0500 SaO2% (BldA) [Mass fraction] 99 % Dr. Carrillo Driscoll MD Work Phone: 1(126)694-927588 [place] [address] 08-13-2024 11:56-0500 Systolic blood pressure 144 mm[Hg] Dr. Carrillo Driscoll MD Work Phone: 3(465)513-408487 [place] [address] 08-08-2024 10:16-0500 Body mass index (BMI) [Ratio] 25.1 kg/m2 Dr. Carrillo Driscoll MD Work Phone: 8(688)612-346188 [place] [address] 08-08-2024 10:16-0500 Body temperature 97.8 [degF] Dr. Carrillo Driscoll MD Work Phone: 9(486)406-858987 [place] [address] 08-08-2024 10:16-0500 Body weight 74.[address] Carrillo Driscoll MD Work Phone: 4(079)987-743488 [place] [address] 08-08-2024 10:16-0500 Diastolic blood pressure 83 mm[Hg] Dr. Carrillo Driscoll MD Work Phone: 5(849)298-888987 [place] [address] 08-08-2024 10:16-0500 Heart rate 68 /min Dr. Carrillo Driscoll MD Work Phone: 9(592)476-770187 [place] [address] 08-08-2024 10:16-0500 Respiratory rate 18 /min Dr. Carrillo Driscoll MD Work Phone: 2(951)957-379387 [place] [address] 08-08-2024 10:16-0500 SaO2% (BldA) [Mass fraction] 99 % Dr. Carrillo Driscoll MD Work Phone: 0(827)670-493987 [place] [address] 08-08-2024 10:16-0500 Systolic blood pressure 121 mm[Hg] Dr. Carrillo Driscoll MD Work Phone: 6(653)113-995787 [place] [address] 05-10-2024 12:45-0400 Body temperature 97.1 [degF] Dr. Carrillo Driscoll MD Work Phone: 2(087)576-005988 [place] [address] 05-10-2024 12:45-0400 Diastolic blood pressure 74 mm[Hg] Dr. Carrillo Driscoll MD Work Phone: 0(162)699-798588 [place] [address] 05-10-2024 12:45-0400 Heart rate 85 /min Dr. Carrillo Driscoll MD Work Phone: 7(702)634-419288 [place] [address] 05-10-2024 12:45-0400 Respiratory rate 16 /min Dr. Carrillo Driscoll MD Work Phone: 9(200)472-988588 [place] [address] 05-10-2024 12:45-0400 SaO2% (BldA) [Mass fraction] 97 % Dr. Carrillo Driscoll MD Work Phone: 9(628)696-121288 [place] [address] 05-10-2024 12:45-0400 Systolic blood pressure 131 mm[Hg] Dr. Carrillo Driscoll MD Work Phone: 0(948)638-315587 [place] [address] 11-15-2023 14:04-0500 Body height 172.[address] Carrillo Driscoll Work Phone: 0(589)932-892488 [place] [address] 11-15-2023 14:04-0500 Body mass index (BMI) [Ratio] 25.1 kg/m2 Dr. Carrillo Driscoll Work Phone: 9(077)288-686587 [place] [address] 11-15-2023 14:04-0500 Body temperature 97.9 [degF] Dr. Carrillo Driscoll Work Phone: 4(163)648-664587 [place] [address] 11-15-2023 14:04-0500 Body weight 74.[address] Carrillo Driscoll Work Phone: 0(856)004-337387 [place] [address] 11-15-2023 14:04-0500 Diastolic blood pressure 86 mm[Hg] Dr. Carrillo Driscoll Work Phone: [facility] 11-15-2023 14:04-0500 Heart rate 80 /min Dr. Carrillo Driscoll Work Phone: [facility] 11-15-2023 14:04-0500 Respiratory rate 16 /min Dr. Carrillo Driscoll Work Phone: [facility] 11-15-2023 14:04-0500 SaO2% (BldA) [Mass fraction] 99 % Dr. Carrillo Driscoll Work Phone: [facility] 11-15-2023 14:04-0500 Systolic blood pressure 134 mm[Hg] Dr. Carrillo Driscoll Work Phone: [facility] 07-16-2022 16:54-0400 Respiratory rate 16 /min Dr. Carrillo Driscoll Work Phone: [facility] Work Phone: 07-16-2022 13:56-0400 Body height 172.[address] Carrillo Driscoll Work Phone: [facility] Work Phone: 07-16-2022 13:56-0400 Body mass index (BMI) [Ratio] 25.8 kg/m2 Dr. Carrillo Driscoll Work Phone: [facility] Work Phone: 07-16-2022 13:56-0400 Body temperature 96.6 [degF] Dr. Carrillo Driscoll Work Phone: [facility] Work Phone: 07-16-2022 13:56-0400 Body weight 77.[address] Carrillo Driscoll Work Phone: [facility] Work Phone: 07-16-2022 13:56-0400 Diastolic blood pressure 93 mm[Hg] Dr. Carrillo Driscoll Work Phone: [facility] Work Phone: 07-16-2022 13:56-0400 Heart rate 96 /min Dr. Carrillo Driscoll Work Phone: [facility] Work Phone: 07-16-2022 13:56-0400 SaO2% (BldA) [Mass fraction] 96 % Dr. Carrillo Driscoll Work Phone: [facility] Work Phone: 07-16-2022 13:56-0400 Systolic blood pressure 152 mm[Hg] Dr. Carrillo Driscoll Work Phone: [facility] Work Phone: 11-07-2015 13:32-0500 BMI (Body Mass Index) 20.38 kg/m2 [facility] Work Phone: 11-07-2015 13:32-0500 Body weight 61.69 kg [facility] Work Phone: 11-07-2015 13:32-0500 Weight 61.69 kg [facility] Work Phone: 04-02-2013 16:26-0400 Body Temperature 98.4 [degF] [facility] Work Phone: 04-02-2013 16:26-0400 BP Diastolic 78 mm[Hg] [facility] Work Phone: 04-02-2013 16:26-0400 BP Systolic 124 mm[Hg] [facility] Work Phone: 04-02-2013 16:26-0400 Pulse (Heart Rate) 96 /min [facility] Work Phone: 04-02-2013 16:26-0400 Pulse Oximetry 100 % [facility] Work Phone: 04-02-2013 16:26-0400 Respiratory Rate 18 /min Edy Monahan [facility] Work Phone: 11-02-2011 13:50-0500 Height 173.99 cm Edy Monahan [facility] Work Phone: Encounters Encounter Date Encounter Type Care Provider Facility Start: 05-07-2025 ambulatory [facility] Facility:[facility] Start: 05-01-2025 Non-patient / Non-visit [facility] Ryan [facility] Start: 05-01-[address] Carrillo rDiscoll MD -Cardiovascular Services Work Phone: Start: 05-01-2025 ambulatory [facility] Facility:[facility] Start: 04-30-2025 ambulatory [facility]illo [facility] Facility:[facility] Start: 04-30-[address] Jorge Alberto Cisse i, MD -Physical Therapy Work Phone: Start: 04-25-2025 End: 04-25-[address] Carrillo Driscoll MD Work Phone: -Pulmonary Services/Neurology Start: 04-25-2025 End: 04-25-[address] Carrillo Driscoll MD -Pulmonary Services/Neurology Work Phone: Start: 04-25-2025 End: 04-25-2025 ambulatory Carrillo [facility] Facility:[facility] Start: 04-23-[address] Jorge Alberto Cisse i, MD -Physical Therapy Work Phone: Start: 04-23-2025 Non-patient / Non-visit Dr. Theresa Mercedes MD -[facility] Work Phone: Start: 04-23-2025 End: 04-23-[address] Carrillo Driscoll MD Work Phone: -Pulmonary Services/Neurology Start: 04-23-2025 End: 04-23-[address] Carrillo Driscoll MD -Pulmonary Services/Neurology Work Phone: Start: 04-23-2025 End: 04-23-2025 ambulatory Carrillo [facility] Facility:[facility] Start: 04-18-2025 End: 04-18-2025 Emergency department patient visit Dr. Carrillo Driscoll MD Work Phone: -Emergency Department Work Phone: Start: 04-15-[address] Jorge Alberto Cisse i, MD -Physical Therapy Work Phone: Start: 04-12-2025 End: 04-12-[address] Carrillo Driscoll MD Work Phone: -Laboratory Phy Office 3rd Flr Start: 04-12-2025 End: 04-12-[address] Carrillo Driscoll MD -Laboratory Phy Office 3rd Nvr Start: 04-12-2025 End: 04-12-2025 ambulatory Carrillo Thiago Mosquedaok Facility:[facility] Start: 02-27-[address] Silvino Collins MD -[facility] Start: 02-27-2025 End: 02-27-2025 Patient encounter procedure Renetta Oden NP-C -[facility] Work Phone: Start: 02-27-2025 End: 02-27-[address] Carrillo Driscoll MD Work Phone: [facility] Work Phone: Start: 02-26-[address] Jorge Alberto Cisse i, MD -Physical Therapy Work Phone: Start: 02-22-2025 End: 02-22-[address] Primo Alfaro MD -[place] [facility] Work Phone: Start: 02-22-2025 End: 02-22-[address] Carrillo Driscoll MD Work Phone: [place] [facility] Work Phone: Start: 02-20-2025 ambulatory Carrillo Thiago Mosquedaok Facility:[facility] Start: 02-20-2025 Non-patient / Non-visit Dr. Jeremy Hazel MD -[facility] Start: 02-20-2025 End: 02-20-2025 Admission to same day surgery center Dr. Em Hazel MD -Endoscopy Work Phone: Start: 02-20-2025 End: 02-20-[address] Carrillo Driscoll MD Work Phone: [facility] Work Phone: Start: 02-15-2025 End: 02-15-[address] Primo Alfaro MD -[place] [facility] Work Phone: Start: 02-15-2025 End: 02-15-[address] Carrillo Driscoll MD Work Phone: [facility] Work Phone: Start: 02-13-2025 ambulatory Carrillo Thiago Americo Facility:[facility] Start: 02-13-2025 Non-patient / Non-visit Dr. Primo canales MD -[facility] Start: 02-13-2025 End: 02-13-2025 Admission to same day surgery center Dr. Primo Alafro MD -[facility] Start: 02-13-2025 End: 02-13-[address] Carrillo Driscoll MD Work Phone: [facility] Work Phone: Start: 02-11-2025 End: 02-11-[address] Carrillo Driscoll MD Work Phone: [facility] Work Phone: Start: 02-11-2025 End: 02-11-[address] Gerardo Cooley DO -Outpatient Breast Imaging Work Phone: Start: 02-11-2025 End: 02-11-2025 ambulatory Carrillo Chi Americo Facility:[facility] Start: 02-05-2025 End: 02-05-[address] Primo Alfaro MD -[place] [facility] Work Phone: Start: 02-05-2025 End: 02-05-[address] Carrillo Driscoll MD Work Phone: [facility] Work Phone: Start: 01-25-2025 End: 01-25-[address] Naveen Talavera MD -[place] [facility] Start: 01-25-2025 End: 01-25-[address] Carrillo Driscoll MD Work Phone: [facility] Work Phone: Start: 01-17-2025 End: 01-17-[address] Carrillo Driscoll MD Work Phone: [facility] Work Phone: Start: 01-17-2025 End: 01-17-[address] Jorge Alberto Moreno MD -Radiology, [facility] Work Phone: Start: 01-17-2025 End: 01-17-2025 ambulatory [facility] Facility:[facility] Start: 01-03-2025 End: 01-03-[address] Carrillo Driscoll MD -Laboratory Work Phone: Start: 01-03-2025 End: 01-03-2025 ambulatory [facility] Facility:[facility] Start: 12-25-2024 End: 12-25-[address] Carrillo Driscoll MD Work Phone: [facility] Work Phone: Start: 12-25-2024 End: 12-25-2024 Discharged Recurring Renetta Akshat CONFERENCE TRANSLATOR-C -Physical Therapy Work Phone: Start: 12-11-2024 Registered Recurring Renetta Akshat CONFERENCE TRANSLATOR-C -Physical Therapy Work Phone: Start: 12-06-2024 End: 12-06-[address] Carrillo Driscoll MD Work Phone: [facility] Work Phone: Start: 12-06-2024 End: 12-06-[address] Em Hazel MD -[facility] Work Phone: Start: 12-06-2024 End: 12-06-2024 ambulatory Carrillo Chi Americo Facility:[facility] Start: 12-04-2024 End: 12-04-2024 Patient encounter procedure Renetta Oden NP-C -Cat Scan, [facility] Work Phone: Start: 12-04-2024 End: 12-04-2024 ambulatory Carrillo [facility] Facility:[facility] Start: 11-30-2024 End: 11-30-[address] Em Hazel MD -[facility] Work Phone: Start: 11-30-2024 End: 11-30-2024 ambulatory Carrillo Chi [place]o Facility:[facility] Start: 11-29-2024 Registered Recurring Renetta Oden CONFERENCE TRANSLATOR-C -Physical Therapy Work Phone: Start: 11-27-2024 End: 11-27-2024 Patient encounter procedure Renetta Oden CONFERENCE TRANSLATOR-C -[facility] Work Phone: Start: 11-27-2024 End: 11-27-2024 ambulatory Carrillo Chi [place]o Facility:[facility] Start: 11-23-2024 End: 11-23-[address] Carrillo Driscoll MD Work Phone: [facility] Work Phone: Start: 11-23-2024 End: 11-23-2024 Patient encounter procedure Renetta Oden NP-C -Outpatient Breast Imaging Work Phone: Start: 11-23-2024 End: 11-23-2024 ambulatory Carrillo Chi [place]o Facility:[facility] Start: 11-19-[address] Silvino Collins MD -[facility] Start: 11-19-2024 End: 11-19-2024 Patient encounter procedure Renetta Oden CONFERENCE TRANSLATOR-C -[facility] Work Phone: Start: 11-19-2024 End: 11-19-2024 ambulatory Carrillo Chi [place]o Facility:[facility] Start: 09-13-2024 End: 09-13-[address] Gerardo Cooley DO -[facility] Work Phone: Start: 09-13-2024 End: 09-13-2024 ambulatory Carrillo Chi [place] Facility:[facility] Start: 09-10-2024 End: 09-10-2024 Patient encounter procedure Miroslava FRANCISCO -Laboratory, Specimen Work Phone: Start: 09-10-2024 Encounter for gynecological examination (general) (routine) without abnormal findings Miroslava Marcano [facility] Start: 09-10-2024 End: 09-10-2024 Patient encounter procedure Miroslava FRANCISCO -[place] [facility] Work Phone: Start: 09-10-2024 End: 09-10-2024 Patient encounter status Miroslava FRANCISCO [facility] Start: 09-10-2024 End: 09-10-2024 [facility] Start: 09-10-2024 End: 09-10-2024 ambulatory [facility] Facility:[facility] Start: 08-22-2024 End: 08-22-[address] Em Hazel MD -[facility] Work Phone: Start: 08-22-2024 End: 08-22-2024 ambulatory [facility] Facility:[facility] Start: 08-20-[address] Carrillo Driscoll MD Work Phone: [facility] Start: 08-20-2024 End: 08-20-2024 Patient encounter procedure Renetta FRANCISCO -[facility] Work Phone: Start: 08-20-2024 End: 08-20-2024 ambulatory Carrillo Chi [place]o Facility:[facility] Start: 08-13-2024 Non-patient / Non-visit Dr. Gerardo awad [facility] Work Phone: Start: 08-13-2024 End: 08-13-[address] Gerardo Cooley [facility] Work Phone: Start: 08-13-2024 End: 08-13-2024 ambulatory Gerardo Cooley Facility:[facility] Start: 08-08-2024 End: 08-08-[address] Gerardo Cooley [facility] Work Phone: Start: 08-08-2024 End: 08-08-2024 ambulatory Gerardo Cooley Facility:[facility] Start: 08-01-2024 End: 08-01-2024 ambulatory Carrillo Driscoll Facility:[facility] Start: 08-01-2024 End: 08-01-2024 ambulatory Gerardo Cooley Facility:[facility] Start: 07-25-2024 End: 07-25-2024 ambulatory Gerardo Cooley Facility:[facility] Start: 07-20-2024 ambulatory Gerardo Cooley [facility]: [facility] Start: 07-18-2024 ambulatory Gerardo Cooley [facility]: [facility] Start: 07-17-2024 ambulatory Gerardo Cooley [facility]: [facility] Start: 07-12-2024 End: 07-12-2024 ambulatory Renetta Akshat CONFERENCE TRANSLATOR Facility:[facility] Start: 07-10-2024 ambulatory Gerardo Cooley [facility]: [facility] Start: 07-10-2024 End: 07-10-2024 ambulatory Gerardo Lenora Facility:[facility] Start: 06-28-2024 End: 06-28-2024 ambulatory Renetta Akshat CONFERENCE TRANSLATOR Facility:[facility] Start: 05-31-2024 End: 05-31-2024 ambulatory Barry Peggyus Facility:[facility] Start: 05-24-2024 End: 05-24-2024 ambulatory Renetta Akshat CONFERENCE TRANSLATOR Facility:[facility] Start: 05-10-2024 End: 05-10-2024 ambulatory Carrillo Driscoll Facility:[facility] Start: 01-06-2024 End: 01-06-[address] Carrillo Driscoll Work Phone: [facility] Work Phone: Start: 01-06-2024 End: 01-06-[address] Carrillo Driscoll Work Phone: [facility] Work Phone: Start: 01-03-2024 End: 01-03-[address] Carrillo Driscoll Work Phone: [facility] Work Phone: Start: 01-03-2024 End: 01-03-[address] Carrillo Driscoll Work Phone: [facility]-Outpatient Breast Imaging Work Phone: Start: 12-28-2023 End: 12-28-[address] Carrillo Driscoll Work Phone: [facility] Work Phone: Start: 12-28-2023 End: 12-28-[address] Carrillo Driscoll Work Phone: [facility]-Laboratory, Phy Office 3rd Flr Start: 11-15-2023 End: 11-15-[address] Carrillo Driscoll Work Phone: [facility] Work Phone: Start: 11-15-2023 End: 11-15-[address] Carrillo Driscoll Work Phone: [facility] Work Phone: Start: 10-12-2023 End: 10-12-[address] Carrillo Driscoll Work Phone: [facility] Work Phone: Start: 09-02-2022 End: 09-02-[address] Carrillo Driscoll Work Phone: [facility] Work Phone: Start: 09-02-2022 End: 09-02-[address] Carrillo Driscoll Work Phone: [facility]-MRI - [facility] Start: 07-16-2022 End: 07-16-2022 Emergency department patient visit Dr. Carrillo Driscoll Work Phone: [facility]-Emergency Department Start: 07-09-2022 End: 07-09-[address] Carrillo Driscoll Work Phone: [facility] Procedures Date Procedure Procedure Detail Performing Clinician Start: 04-18-2025 X-ray of ankle, thre e or more views Dr. Carrillo Driscoll MD Work Phone: Start: 04-18-2025 X-ray of foot, three or more views Dr. Carrillo Driscoll MD Work Phone: Start: 04-12-2025 Electrophoresis: [id number] Dr. Carrillo Driscoll MD Work Phone: Start: 04-12-2025 Electrophoresis: [id number] Dr. Carrillo Driscoll MD Work Phone: Start: 04-12-2025 Electrophoresis: [email or web address] ma globulin Dr. Carrillo Driscoll MD Work Phone: Start: 02-27-[address] Carrillo Driscoll MD Work Phone: Start: 02-20-[address] Carrillo small MD Work Phone: Start: 02-13-[address] Jeremy Driscoll MD Work Phone: Start: 02-11-2025 Bilateral mammography D isai Driscoll MD Work Phone: Start: 01-25-2025 Plain [...] Start: 06-25-2016 End: 07-11-2016 Drain/inject, joint/bursa Edy Monahan Work Phone: Start: 12-26-2015 End: 12-26-2015 Smoking cessation education Edy Monahan Start: 12-26-2015 End: 01-14-2016 Drain/inject, joint/bursa Edy Monahan Work Phone: Start: 11-07-2015 End: 11-18-2015 Drain/inject, joint/bursa Edy Monahan Work Phone: Plan of Treatment Date Care Activity Detail Author Start: 04-18-2025 [facility] Start: 02-27-2025 [facility] Start: 02-20-2025 Patient discharge [facility] Start: 02-13-2025 Anes nerve muscle tdn fascia&bursa forearm wrist ANESTH LOWER ARM SURGERY [facility] Start: 02-13-2025 Incision extensor tendon sheath wrist INCISION OF TENDON SHEATH [facility] Start: 02-13-2025 Patient discharge [facility] Start: 02-11-2025 Digital breast tomosynthesis bilateral BREAST TOMOSYNTHESIS BI [facility] Start: 01-25-2025 Plain x-ray of wrist Wrist min 3 Views [facility] Start: 01-25-2025 XR Wrist GE 3 Views [facility] Start: 11-23-2024 Digital breast tomosynthesis unilateral BREAST TOMOSYNTHESIS UNI [facility] Start: 11-19-2024 Patient referral [facility] Work Phone: Start: 08-20-2024 Patient referral [facility] Work Phone: Start: 04-19-2024 Venous catheter care management [facility] Start: 06-03-2017 End: 06-03-2017 Appointment Appointment [facility] Work Phone: Start: 04-22-2017 End: 04-22-2017 Appointment Appointment [facility] Work Phone: Start: 03-23-2017 End: 03-23-2017 Appointment Appointment [facility] Work Phone: Start: 03-09-2017 End: 03-09-2017 Appointment Appointment [facility] Work Phone: Start: 02-21-2017 End: 02-21-2017 Appointment Appointment [facility] Work Phone: Start: 02-08-2017 End: 02-08-2017 Appointment Appointment [facility] Work Phone: Start: 02-08-2017 End: 02-08-2017 Appointment Appointment [facility] Work Phone: Start: 12-29-2016 End: 12-29-2016 Occupational Therapy General Occupational Therapy [facility], [address] [place] [address], [id number] [facility] Work Phone: Start: 12-26-2015 End: 12-26-2015 X-ray exam of elbow X-Ray, [place] [facility] Work Phone: CBC W Auto Different ial panel - Blood [facility] Comprehensive metabo lic 2000 panel - Serum or Plasma [facility] MG Breast - bilatera l Diagnostic [facility] MG Breast Diagnostic [facility] Patient Education [facility] Work Phone: Patient referral [facility] Work Phone: Ultrasonography guid ed biopsy of breast [facility] Payers Date Payer Category Payer Self-pay [id number] 2024 Unknown [id number] 2023 Private Health Insurance [id number] 2016 Unknown [id number] Private Health Insurance [facility] [id number] Unknown [id number] [address] [facility] PACKAGE PLAN [id number] Unknown [id number] 2.16.840.1.627580.3.579.2.4 62 Unknown [id number] 2.16.840.1.014809.3.579.2.4 62 Unknown [id number] 2.16.840.1.300681.3.579.2.4 62 Unknown [id number] 2.16.840.1.240911.3.579.2.4 62 Unknown [id number] 2.16.840.1.162713.3.579.2.4 62 Unknown [id number] 2.16.840.1.231517.3.579.2.4 62 Unknown [id number] 2.16.840.1.288704.3.579.2.4 62 Unknown [id number] 2.16.840.1.340836.3.579.2.4 62 Unknown [id number] 2.16.840.1.710003.3.579.2.4 62 Unknown [id number] 2.16.840.1.160918.3.579.2.4 62 Unknown [id number] 2.16.840.1.570065.3.579.2.4 62 Unknown [id number] 2.16.840.1.842648.3.579.2.4 62 Unknown [id number] 2.16.840.1.349279.3.579.2.4 62 Unknown [id number] 2.16.840.1.155449.3.579.2.4 62 Unknown [id number] 2.16.840.1.768565.3.579.2.4 62 Unknown [id number] 2.16.840.1.417858.3.579.2.4 62 Unknown [id number] 2.16.840.1.848627.3.579.2.4 62 Unknown [id number] 2.16.840.1.160098.3.579.2.4 62 Unknown [id number] 2.16.840.1.396327.3.579.2.4 62 Unknown [id number] 2.16.840.1.840048.3.579.2.4 62 Unknown [id number] 2.16.840.1.617134.3.579.2.4 62 Unknown [id number] 2.16.840.1.257913.3.579.2.4 62 Unknown [id number] 2.16.840.1.626633.3.579.2.4 62 Unknown [id number] 2.16.840.1.309349.3.579.2.4 62 Unknown [id number] 2.16.840.1.500891.3.579.2.4 62 Unknown [id number] 2.16.840.1.680242.3.579.2.4 62 Unknown [id number] 2.16.840.1.587989.3.579.2.4 62 Unknown [id number] 2.16.840.1.069252.3.579.2.4 62 Unknown [id number] 2.16.840.1.621912.3.579.2.4 62 Unknown [id number] 2.16.840.1.857163.3.579.2.4 62 Unknown [id number] 2.16.840.1.924379.3.579.2.4 62 Unknown [id number] 2.16.840.1.623447.3.579.2.4 62 Unknown [id number] 2.16.840.1.783154.3.579.2.4 62 Unknown [id number] 2.16.840.1.653221.3.579.2.4 62 Unknown [id number] 2.16.840.1.775319.3.579.2.4 62 Unknown [id number] 2.16.840.1.341902.3.579.2.4 62 Unknown [id number] 2.16.840.1.711845.3.579.2.4 62 Unknown [id number] 2.16.840.1.123935.3.579.2.4 62 Unknown [id number] 2.16.840.1.077831.3.579.2.4 62 Unknown [id number] 2.16.840.1.376554.3.579.2.4 62 Unknown [id number] 2.16.840.1.714032.3.579.2.4 62 Unknown [id number] 2.16.840.1.242797.3.579.2.4 62 Unknown [id number] 2.16.840.1.795996.3.579.2.4 62 Unknown [id number] 2.16.840.1.973343.3.579.2.4 62 Unknown [id number] 2.16.840.1.979973.3.579.2.4 62 Unknown [id number] 2.16.840.1.655839.3.579.2.4 62 Unknown [id number] 2.16.840.1.737642.3.579.2.4 62 Unknown [id number] 2.16.840.1.639826.3.579.2.4 62 Unknown [id number] 2.16.840.1.486526.3.579.2.4 62 Unknown [id number] 2.16.840.1.117130.3.579.2.4 62 Unknown [id number] 2.16.840.1.671132.3.579.2.4 62 Unknown [id number] 2.16.840.1.660522.3.579.2.4 62 Unknown [id number] 2.16.840.1.598377.3.579.2.4 62 Social History Date Type Detail Facility Start: 07-16-2022 End: 11-15-2023 Tobacco smoking status MAIS Unknown if ever smoked [facility] Start: 02-11-2020 Non-smoker [facility] Start: 1970 Sex Assigned At Female [facility] Start: 09-10-2024 End: 04-18-2025 Tobacco smoking status NHIS Ex-smoker (finding) [facility] Start: 12-03-2024 End: 12-12-2024 Sex Female (finding) [facility] Not [facility] NEGATED: Highlighted row Not [facility] Medical Equipment Procedure Code Equipment Code Equipment Origin al Text Equipment Identifier Dates Lumpectomy, breast, bilateral, after needle localization, with bilateral sentinel and Ligation clip, metallic [id number] FDA Start: 03-13-2024 Lumpectomy, breast, bilateral, after needle localization, with bilateral sentinel and Ligation clip, metallic [id number] FDA Start: 03-13-2024 Insertion, vascular access port [id number]) Vascular port/catheter [id number] FDA Start: 04-16-2024 CHLOE MUNGUIA LG FDA Start: 02-12-2020 CHLOE MUNGUIA FDA Start: 02-12-2020 CUTTER,LINEAR NTLC75 FDA Start: 02-12-2020 RELOAD, SR75 SELECTABLE FDA Start: 02-12-2020 RELOAD, SR75 SELECTABLE FDA Start: 02-12-2020 RELOAD, SR75 SELECTABLE FDA Start: 02-12-2020 KRISTI HUNTLEY FDA Start: 02-12-2020 CHLOE MUNGUIA LG FDA Start: 02-12-2020 CHLOE MUNGUIA FDA Start: 02-12-2020 CUTTER,LINEAR NTLC75 FDA Start: 02-12-2020 RELOAD, SR75 SELECTABLE FDA Start: 02-12-2020 RELOAD, SR75 SELECTABLE FDA Start: 02-12-2020 RELOAD, SR75 SELECTABLE FDA Start: 02-12-2020 STAPLER,TX60B FDA Start: 02-12-2020 CHLOE MUNGUIA CESAR FELICIAMARCUS FDA Start: 02-12-2020 CLIPCHLOE GA Jayesh FELICIAMARCUS FDA Start: 02-12-2020 CUTTER,LINEAR NTLC75 FDA Start: 02-12-2020 RELOAD, SR75 SELECTABLE FDA Start: 02-12-2020 RELOAD, SR75 SELECTABLE FDA Start: 02-12-2020 RELOAD, SR75 SELECTABLE FDA Start: 02-12-2020 STAPLER,TX60B FDA Start: 02-12-2020 CLIPCHLOE CESAR LAY FDA Start: 02-12-2020 CHLOE MUNGUIA GA Jayesh LAY FDA Start: 02-12-2020 CUTTER,LINEAR NTLC75 FDA Start: 02-12-2020 RELOAD, SR75 SELECTABLE FDA Start: 02-12-2020 RELOAD, SR75 SELECTABLE FDA Start: 02-12-2020 RELOAD, SR75 SELECTABLE FDA Start: 02-12-2020 STAPLER,TX60B FDA Start: 02-12-2020 CHLOE MUNGUIA LGMARCUS FDA Start: 02-12-2020 CHLOE MUNGUIA Jayesh FELICIAMARCUS FDA Start: 02-12-2020 CUTTER,LINEAR NTLC75 FDA Start: 02-12-2020 RELOAD, SR75 SELECTABLE FDA Start: 02-12-2020 RELOAD, SR75 SELECTABLE FDA Start: 02-12-2020 RELOAD, SR75 SELECTABLE FDA Start: 02-12-2020 STAPLER,TX60B FDA Start: 02-12-2020 CLIPCHLOE CESAR FELICIAMARCUS FDA Start: 02-12-2020 CLIPCHLOE GA Jayesh FELICIAMARCUS FDA Start: 02-12-2020 CUTTER,LINEAR NTLC75 FDA Start: 02-12-2020 RELOAD, SR75 SELECTABLE FDA Start: 02-12-2020 RELOAD, SR75 SELECTABLE FDA Start: 02-12-2020 RELOAD, SR75 SELECTABLE FDA Start: 02-12-2020 STAPLER,TX60B FDA Start: 02-12-2020 CLIP,CHLOE LAY FDA Start: 02-12-2020 CLIP,CHLOE LAY FDA Start: 02-12-2020 CUTTER,LINEAR NTLC75 FDA Start: 02-12-2020 RELOAD, SR75 SELECTABLE FDA Start: 02-12-2020 RELOAD, SR75 SELECTABLE FDA Start: 02-12-2020 RELOAD, SR75 SELECTABLE FDA Start: 02-12-2020 STAPLERTX60B FDA Start: 02-12-2020 CLIP,CHLOE LAY FDA Start: 02-12-2020 CLIP,CHLOE LAY FDA Start: 02-12-2020 CUTTER,LINEAR NTLC75 FDA Start: 02-12-2020 RELOAD, SR75 SELECTABLE FDA Start: 02-12-2020 RELOAD, SR75 SELECTABLE FDA Start: 02-12-2020 RELOAD, SR75 SELECTABLE FDA Start: 02-12-2020 STAPBERNABETX60B FDA Start: 02-12-2020 CLIP,CHLOE LAY FDA Start: 02-12-2020 CLIP,CHLOE LAY FDA Start: 02-12-2020 CUTTER,LINEAR NTLC75 FDA Start: 02-12-2020 RELOAD, SR75 SELECTABLE FDA Start: 02-12-2020 RELOAD, SR75 SELECTABLE FDA Start: 02-12-2020 RELOAD, SR75 SELECTABLE FDA Start: 02-12-2020 STAPBERNABETX60B FDA Start: 02-12-2020 CLIP,CHLOE LAY FDA Start: 02-12-2020 CLIP,CHLOE LAY FDA Start: 02-12-2020 CUTTER,LINEAR NTLC75 FDA Start: 02-12-2020 RELOAD, SR75 SELECTABLE FDA Start: 02-12-2020 RELOAD, SR75 SELECTABLE FDA Start: 02-12-2020 RELOAD, SR75 SELECTABLE FDA Start: 02-12-2020 STAPBERNABETX60B FDA Start: 02-12-2020 CLIP,CHLOE LAY FDA Start: 02-12-2020 CLIP,CHLOE LAY FDA Start: 02-12-2020 CUTTER,LINEAR NTLC75 FDA Start: 02-12-2020 RELOAD, SR75 SELECTABLE FDA Start: 02-12-2020 RELOAD, SR75 SELECTABLE FDA Start: 02-12-2020 RELOAD, SR75 SELECTABLE FDA Start: 02-12-2020 STAPLER,TX60B FDA Start: 02-12-2020 CLIP,CHLOE CESRA FELICIAMARCUS FDA Start: 02-12-2020 CLIP,CHLOE CAVANAUGH Jayesh LAY FDA Start: 02-12-2020 CUTTER,LINEAR NTLC75 FDA Start: 02-12-2020 RELOAD, SR75 SELECTABLE FDA Start: 02-12-2020 RELOAD, SR75 SELECTABLE FDA Start: 02-12-2020 RELOAD, SR75 SELECTABLE FDA Start: 02-12-2020 STAPLER,TX60B FDA Start: 02-12-2020 CLIP,KATIEMARCUS LAY FDA Start: 02-12-2020 CLIP,CHLOE CAVANAUGH Jayesh LAY FDA Start: 02-12-2020 CUTTER,LINEAR NTLC75 FDA Start: 02-12-2020 RELOAD, SR75 SELECTABLE FDA Start: 02-12-2020 RELOAD, SR75 SELECTABLE FDA Start: 02-12-2020 RELOAD, SR75 SELECTABLE FDA Start: 02-12-2020 STAPLER,TX60B FDA Start: 02-12-2020 CLIP,CHLOE CESAR LAY FDA Start: 02-12-2020 CLIP,CHLOE CAVANAUGH Jayesh LAY FDA Start: 02-12-2020 CUTTER,LINEAR NTLC75 FDA Start: 02-12-2020 RELOAD, SR75 SELECTABLE FDA Start: 02-12-2020 RELOAD, SR75 SELECTABLE FDA Start: 02-12-2020 RELOAD, SR75 SELECTABLE FDA Start: 02-12-2020 STAPLER,TX60B FDA Start: 02-12-2020 CLIP,CHLOE DUARTEMARCUS FDA Start: 02-12-2020 CLIP,CHLOE CAVANAUGH Jayesh FELICIAMARCUS FDA Start: 02-12-2020 CUTTER,LINEAR NTLC75 FDA Start: 02-12-2020 RELOAD, SR75 SELECTABLE FDA Start: 02-12-2020 RELOAD, SR75 SELECTABLE FDA Start: 02-12-2020 RELOAD, SR75 SELECTABLE FDA Start: 02-12-2020 STAPLER,TX60B FDA Start: 02-12-2020 CLIP,KATIEMARCUS LAY FDA Start: 02-12-2020 CLIP,CHLOE CAVANAUGH Jayesh LAY FDA Start: 02-12-2020 CUTTER,LINEAR NTLC75 FDA Start: 02-12-2020 RELOAD, SR75 SELECTABLE FDA Start: 02-12-2020 RELOAD, SR75 SELECTABLE FDA Start: 02-12-2020 RELOAD, SR75 SELECTABLE FDA Start: 02-12-2020 STAPLER,TX60B FDA Start: 02-12-2020 KATIE MUNGUIAMARCUS LAY FDA Start: 02-12-2020 CLIPKATIEMARCUS LAY FDA Start: 02-12-2020 CUTTER,LINEAR NTLC75 FDA Start: 02-12-2020 RELOAD, SR75 SELECTABLE FDA Start: 02-12-2020 RELOAD, SR75 SELECTABLE FDA Start: 02-12-2020 RELOAD, SR75 SELECTABLE FDA Start: 02-12-2020 STAPLER,TX60B FDA Start: 02-12-2020 CLIPCAMDENGALINA LAY FDA Start: 02-12-2020 EZRAKATIEMARCUS LAY FDA Start: 02-12-2020 CUTTER,LINEAR NTLC75 FDA Start: 02-12-2020 RELOAD, SR75 SELECTABLE FDA Start: 02-12-2020 RELOAD, SR75 SELECTABLE FDA Start: 02-12-2020 RELOAD, SR75 SELECTABLE FDA Start: 02-12-2020 STAPLER,TX60B FDA Start: 02-12-2020 EZRAKATIEMARCUS LAY FDA Start: 02-12-2020 CLIPKATIEMARCUS LAY FDA Start: 02-12-2020 CUTTER,LINEAR NTLC75 FDA Start: 02-12-2020 RELOAD, SR75 SELECTABLE FDA Start: 02-12-2020 RELOAD, SR75 SELECTABLE FDA Start: 02-12-2020 RELOAD, SR75 SELECTABLE FDA Start: 02-12-2020 STAPLER,TX60B FDA Start: 02-12-2020 CLIPKATIEMARCUS LAY FDA Start: 02-12-2020 CLIPKATIEMARCUS LAY FDA Start: 02-12-2020 CUTTER,LINEAR NTLC75 FDA Start: 02-12-2020 RELOAD, SR75 SELECTABLE FDA Start: 02-12-2020 RELOAD, SR75 SELECTABLE FDA Start: 02-12-2020 RELOAD, SR75 SELECTABLE FDA Start: 02-12-2020 STAPLER,TX60B FDA Start: 02-12-2020 EZRA,CHLOE LAY FDA Start: 02-12-2020 CLIP,CHLOE LAY FDA Start: 02-12-2020 CUTTER,LINEAR NTLC75 FDA Start: 02-12-2020 RELOAD, SR75 SELECTABLE FDA Start: 02-12-2020 RELOAD, SR75 SELECTABLE FDA Start: 02-12-2020 RELOAD, SR75 SELECTABLE FDA Start: 02-12-2020 AUDITX60B FDA Start: 02-12-2020 CLIPCHLOE LG FDA Start: 02-12-2020 CLIPCHLOE FDA Start: 02-12-2020 CUTTER,LINEAR NTLC75 FDA Start: 02-12-2020 RELOAD, SR75 SELECTABLE FDA Start: 02-12-2020 RELOAD, SR75 SELECTABLE FDA Start: 02-12-2020 RELOAD, SR75 SELECTABLE FDA Start: 02-12-2020 STAPBERNABETX60B FDA Start: 02-12-2020 CLIP,CHLOE LAY FDA Start: 02-12-2020 CLIP,CHLOE LAY FDA Start: 02-12-2020 CUTTER,LINEAR NTLC75 FDA Start: 02-12-2020 RELOAD, SR75 SELECTABLE FDA Start: 02-12-2020 RELOAD, SR75 SELECTABLE FDA Start: 02-12-2020 RELOAD, SR75 SELECTABLE FDA Start: 02-12-2020 AUDITX60B FDA Start: 02-12-2020 Goals Date Patient Goal Desired Activity /State Mental Status Date Assessment Result Facility 02-20-2025 Cognitive function Level Of Cons ciousness Awake;Alert [facility] Work Phone: 02-20-2025 Cognitive function Patient Orien tation Person;Place;Time [facility] Work Phone: 02-13-2025 Cognitive function Voice/Name [facility] Work Phone: Clinical Notes 08-13-2024 to 04-18-2025 Note Date & Type Note Facility 04-18-2025 Discharge summary [facility] 04-18-2025 Radiology Diagnostic study note [facility] Imaging Services [address] [place] [address] Foot min 3 Views MR#: [id number] Acct: [id number] Name: FEDE LUIS Rep #: [id number] : 1970 F 55 From: Indio Álvarez MD PCP: Dr. Carrillo Driscoll MD Status: REG E R Study:Foot min 3 Views Date of Exam: 04/05 Exam# [id number] Ordering Dr: Scot Gonzalez DO PROCEDURE: FOOT MIN 3 VIEWS 04/18/2025 REASON FOR EXAM: PAIN TECHNIQUE: FOOT MIN 3 VIEWS Laterality: Right COMPARISON: None FINDINGS: Bones: No visible fracture. No suspicious bone lesion. Joints: Normal alignment. Soft tissues: Soft tissues are unremarkable. Other: RAD/Foot min 3 Views IMPRESSION: NO ACUTE FRACTURE OR DISLOCATION. Reading Location: [id number] CC: Dr. Scot Schreiber DO; Dr. Carrillo Driscoll MD ~ It Security Project Manager: Signed [facility] 04-18-2025 Radiology Diagnostic study note [facility] Imaging Services [address] [place] [id number] Ankle min 3 Views MR#: [id number] Acct: [id number] Name: FEDE LUIS Rep #: [id number] : 1970 F 55 From: Indio Álvarez MD PCP: Dr. Carrillo Driscoll MD Status: REG E R Study:Ankle min 3 Views Date of Exam: Exam# [id number] Ordering Dr: Scot Gonzalez DO PROCEDURE: ANKLE MIN 3 VIEWS 04/18/2025 REASON FOR EXAM: PAIN TECHNIQUE: ANKLE MIN 3 VIEWS Laterality: Right COMPARISON: None FINDINGS: Bones: No fracture or bony destruction. Joints: Normal alignment. Mortise appears intact. No effusion. Soft tissues: Soft tissues are unremarkable. Other: RAD/Ankle min 3 Views IMPRESSION: NO ACUTE FRACTURE OR DISLOCATION. Reading Location: [facility] CC: Dr. Scot Schreiber DO; Dr. Carrillo Driscoll MD ~ It Security Project Manager: Signed [facility] 02-20-2025 Consult note [facility] 02-20-2025 Consult note Note Date/Time February 20, 2025 8:42am [facility] Medical Records Department [address] [place] [address] Pre-Anesthesia Evaluation 02/20/25 0842 MR#: [id number] Acct: [id number] Name: FEDE LUIS Rep #:[id number] : 1970 54 From: Thiago Foley MD PCP: Dr. Carrillo Driscoll MD Status:REG S DC Y Race: C Location: [place] [address] ASA Classification* ASA Classification ASA Classification: 2 [...] Procedure(s): CSCOPE Anesthesia History Anesthesia History - radiologic technology program director: Anesthesia History - radiologic technology program director Hx Hospitalization No 02/07/25 11:28 Any Problems [...] take am of surgery PONV PONV - radiologic technology program director: PONV - radiologic technology program director Female Yes 02/07/25 11:28 HX of Motion [...] 02/20/25 08:26 Respiratory Assessment Respiratory Assessment - radiologic technology program director: Respiratory Tract Infection Hx - radiologic technology program director Hx Respiratory Tract Infection No 02/07/25 11:28 STOP Sleep Apnea STOP Sleep Apnea - radiologic technology program director: STOP Sleep Apnea - radiologic technology program director Hx Hypertension No 02/07/25 11:28 Hx Sleep [...] Tobacco Use History Tobacco Use History - radiologic technology program director: Tobacco Use History - radiologic technology program director Tobacco Use Smoking Status Former smoker 02/07/25 11:28 Hx Tobacco Use No 02/07/25 11:28 Years Smoking Packs Smoked per Day Smoking Cessation Date was Yes - quit smoking within 15 02/07/25 11:28 within the last 15 years years Hx Smoking Cessation Date 09/12/16 02/07/25 11:28 Hx Smoking Cessation No 02/07/25 11:28 Counseling Hematologic Medial History Hematologic Hx - radiologic technology program director: 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 Hx of Blood Transfusion No 02/07/25 11:28 [...] confused, unrespo /Reproduction History /Reproductive History - radiologic technology program director: /Reproductive Hx- radiologic technology program director Hx Now No 02/07/25 11:28 Gestational Age [...] MD Cosigner Signature: Date CC: ~ Signed [facility] Work Phone: [phone] 573-172906-11-2025 Procedure note [facility] Medical Records Department [address] [place] [address] Colonoscopy Report MR#: [id number] Acct: [id number] Name: FEDE LUIS Rep #:[id number] : 1970 54 From: Em Hazel [...] normal. There was evidence of a prior khzd-li-vpyh ileo-colonic anastomosis in the transverse colon. This was patent and was characterized by healthy appearing mucosa. The entire examined colon appeared normal. Impression: - Patent rren-ks-yeys ileo-colonic anastomosis, characterized by healthy appearing mucosa. [...] bypass and anastomosis status CPT copyright 2021 [employer]. All rights reserved. The codes documented in this report are preliminary and upon junior mechanical engineer review may be revised to meet current compliance requirements. MD Em Loyola MD 02/20/2025 10:24:32 AM This report has been signed electronically. Number of Addenda: 0 Note Initiated On: 02/20/2025 10:17 AM 02/20/25 1024 Date _ Em Hazel MD Cosigner Signature: Date (if indicated) CC: Dr. Carrillo Driscoll MD; Dr. Em Hazel MD ~ Date Dictated: 02/20/25 1017 Date Transcribed: It Security Project Manager: TR Signed [facility]06-11-2025 Procedure note [facility] Medical Records Department [address] [place] [address] Operative Report - CC Letter MR#: [id number] Acct: [id number] Name: FEDE LUIS Rep #:[id number] : 1970 54 From: Em Hazel MD PCP: Dr. Carrillo Driscoll MD Status:REG S DC 02/20/2025 Carrillo Driscoll MD [address] [place] [address] Re : Colonoscopy procedure for Fede Luis Dear Dr. Driscoll This procedure was performed on Tuesday, February 20, 2025. My impressions and recommendations are as follows: Impressions : - Patent xnsb-kx-bxbq ileo-colonic anastomosis, characterized by healthy appearing mucosa. [...] ~ Date Dictated: 02/20/25 1017 Date Transcribed: It Security Project Manager: TR Signed [facility]06-11-2025 Consult note [facility] Medical Records Department [address] [place] [address] Anesthesia Postop Eval I 02/20/25 1020 MR#: [id number] Acct: [id number] Name: FEDE LUIS Rep #:[id number] : 1970 54 From: Can Steinberg PCP: Dr. Carrillo Driscoll MD Status:REG S DC Y Race: C Location: [place] [address] Anesthesia: Postop Eval I Current Vital Signs [...] Can Darden Signature: Date CC: ~ Signed [facility]06-11-2025 History and physical note [facility] Medical Records Department [address] [place] [address] History & Physical Exam 02/20/25 0913 MR#: [id number] Acct: [id number] Name: FEDE LUIS Rep #:[id number] : 1970 54 From: Em Hazel MD PCP: Dr. Carrillo Driscoll MD Status:REG S DC Location: [address] - General General Date of Service: [...] polyps. Patient denies any chronic abdominal pain/nausea/vomiting/reflux. [facility] Medical History Anemia Bilateral leg weakness [...] HX of Surgeries: MICRODISCECTOMY 2003 BACK SURGERY 2004 PLATE IN [place] 2005, REMOVAL 2006 2010 REMOVAL SOFT TISSUE MASS [...] Rash Discharge Is Pt Admitted From a Custodial, or a Longterm: No After D/C, Where Do you Plan [...] complete colonoscopy requiring barium enema. 02/20/25 0916 Cosign Signature (if applicable): CC: Dr. Carrillo Driscoll MD; Dr. Em Hazel MD~ Signed [facility]06-11-2025 [facility]06-11-2025 Consult note [facility] Medical Records Department [address] [place] [address] Pre-Anesthesia Evaluation 02/20/25 0842 MR#: [id number] Acct: [id number] Name: FEDE LUIS Rep #:[id number] : 1970 54 From: Thiago Foley MD PCP: Dr. Carrillo Driscoll MD Status:REG S DC Y Race: C Location: [place] [address] ASA Classification* ASA Classification ASA Classification: 2 [...] Procedure(s): CSCOPE Anesthesia History Anesthesia History - radiologic technology program director: Anesthesia History - radiologic technology program director Hx Hospitalization No 02/07/25 11:28 Any Problems [...] take am of surgery PONV PONV - radiologic technology program director: PONV - radiologic technology program director Female Yes 02/07/25 11:28 HX of Motion [...] 02/20/25 08:26 Respiratory Assessment Respiratory Assessment - radiologic technology program director: Respiratory Tract Infection Hx - radiologic technology program director Hx Respiratory Tract Infection No 02/07/25 11:28 STOP Sleep Apnea STOP Sleep Apnea - radiologic technology program director: STOP Sleep Apnea - radiologic technology program director Hx Hypertension No 02/07/25 11:28 Hx Sleep [...] Tobacco Use History Tobacco Use History - radiologic technology program director: Tobacco Use History - radiologic technology program director Tobacco Use Smoking Status Former smoker 02/07/25 11:28 Hx Tobacco Use No 02/07/25 11:28 Years Smoking Packs Smoked per Day Smoking Cessation Date was Yes - quit smoking within 15 02/07/25 11:28 within the last 15 years years Hx Smoking Cessation Date 09/12/16 02/07/25 11:28 Hx Smoking Cessation No 02/07/25 11:28 Counseling Hematologic Medial History Hematologic Hx - radiologic technology program director: 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 02/20/25 0842 > Date _ Thiago Foley MD Cosigner Signature: Date CC: ~ Signed [facility]06-04-2025 History and physical note Author Primo Alfaro [facility] Note Date/Time February 13, 2025 11:23 am [facility] Medical Records Department [address] [place] [address] H&P Exam - Surgical 02/13/25 1121 MR#: [id number] Acct: [id number] Name: FEDE LUIS Rep #:[id number] : 1970 54 From: Primo Alfaro MD PCP: Dr. Carrillo Driscoll MD Status:REG S DC Location: [place] [address] HPI - General HPI Narrative FEDE LUIS, [...] with surgery. I marked the right wrist [facility] Medical History (Updated 02/07/25 @ 11:23 by [...] Alfaro MD; Dr. Carrillo Driscoll MD~ Signed [facility] Work Phone: 1(296) 420-282306-04-2025 Consult note Author Leon Ortiz [facility] Note Date/Time February 13, 2025 10:43 am [facility] Medical Records Department [address] [place] [address] Pre-Anesthesia Evaluation 02/13/25 1041 MR#: [id number] Acct: [id number] Name: FEDE LUIS Rep #:[id number] : 1970 54 From: Leon Ortiz MD PCP: Dr. Carrillo Driscoll MD Status:REG S DC Y Race: C Location: [place] [address]- ASA Classification* ASA Classification ASA Classification: 2 [...] COMPARTMENT RELEASE Anesthesia History Anesthesia History - radiologic technology program director: Anesthesia History - radiologic technology program director Hx Hospitalization No 02/07/25 11:28 Any Problems [...] take am of surgery PONV PONV - radiologic technology program director: PONV - radiologic technology program director Female Yes 02/07/25 11:17 HX of Motion [...] 02/13/25 10:07 Respiratory Assessment Respiratory Assessment - radiologic technology program director: Respiratory Tract Infection Hx - radiologic technology program director Hx Respiratory Tract Infection No 02/07/25 11:28 STOP Sleep Apnea STOP Sleep Apnea - radiologic technology program director: STOP Sleep Apnea - radiologic technology program director Hx Hypertension No 02/07/25 11:28 Hx Sleep [...] Tobacco Use History Tobacco Use History - radiologic technology program director: Tobacco Use History - radiologic technology program director Tobacco Use Smoking Status Former smoker 02/07/25 11:28 Hx Tobacco Use No 02/07/25 11:28 Years Smoking Packs Smoked per Day Smoking Cessation Date was Yes - quit smoking within 15 02/07/25 11:17 within the last 15 years years Hx Smoking Cessation Date 09/12/16 02/07/25 11:28 Hx Smoking Cessation No 02/07/25 11:28 Counseling Hematologic Medial History Hematologic Hx - radiologic technology program director: 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 Hx of Blood Transfusion No 02/07/25 11:17 [...] confused, unrespo /Reproduction History /Reproductive History - radiologic technology program director: /Reproductive Hx- radiologic technology program director Hx Now No 02/07/25 11:17 Gestational Age [...] MD Cosigner Signature: Date CC: ~ Signed [facility] Work Phone: [phone] Consult note [facility] Medical Records Department [address] [place] [address] Anesthesia Postop Eval I 02/13/25 1234 MR#: [id number] Acct: [id number] Name: TAMERA LUISNILESH Bocanegra Rep #:[id number] 6 : 1970 54 From: Bernadette Montero CRNA PCP: Dr. Carrillo Driscoll MD Status:REG S DC Y Race: C Location: [place] [address] Anesthesia: Postop Eval I Current Vital Signs [...] Eval 1 completed: Yes 02/13/25 1235 c MAINTENANCE DEPARTMENT MANAGER> Date _ Bernadette Milosekenya MAINTENANCE DEPARTMENT MANAGER Cosigner Signature: Date CC: ~ Signed [facility]06-04-2025 History and physical note [facility] Medical Records Department [address] [place] [address] H&P Exam - Surgical 02/13/25 1121 MR#: [id number] Acct: [id number] Name: FEDE LUIS Rep #:[id number] : 1970 54 From: Primo Alfaro MD PCP: Dr. Carrillo Drsicoll MD Status:REG S MI Location: [place] [address] HPI - General HPI Narrative FEDE LUIS, [...] with surgery. I marked the right wrist [facility] Medical History (Updated 02/07/25 @ 11:23 by [...] Alfaro MD; Dr. Carrillo Driscoll MD~ Signed [facility]06-04-2025 Consult note [facility] Medical Records Department [address] [place] [address] Pre-Anesthesia Evaluation 02/13/25 1041 MR#: [id number] Acct: [id number] Name: FEDE LUIS Rep #:[id number] : 1970 54 From: Leon Ortiz MD PCP: Dr. Carirllo Driscoll MD Status:REG S DC Y Race: C Location: [place] [address] ASA Classification* ASA Classification ASA Classification: 2 [...] COMPARTMENT RELEASE Anesthesia History Anesthesia History - radiologic technology program director: Anesthesia History - radiologic technology program director Hx Hospitalization No 02/07/25 11:28 Any Problems [...] take am of surgery PONV PONV - radiologic technology program director: PONV - radiologic technology program director Female Yes 02/07/25 11:17 HX of Motion [...] 02/13/25 10:07 Respiratory Assessment Respiratory Assessment - radiologic technology program director: Respiratory Tract Infection Hx - radiologic technology program director Hx Respiratory Tract Infection No 02/07/25 11:28 STOP Sleep Apnea STOP Sleep Apnea - radiologic technology program director: STOP Sleep Apnea - radiologic technology program director Hx Hypertension No 02/07/25 11:28 Hx Sleep [...] Tobacco Use History Tobacco Use History - radiologic technology program director: Tobacco Use History - radiologic technology program director Tobacco Use Smoking Status Former smoker 02/07/25 11:28 Hx Tobacco Use No 02/07/25 11:28 Years Smoking Packs Smoked per Day Smoking Cessation Date was Yes - quit smoking within 15 02/07/25 11:17 within the last 15 years years Hx Smoking Cessation Date 09/12/16 02/07/25 11:28 Hx Smoking Cessation No 02/07/25 11:28 Counseling Hematologic Medial History Hematologic Hx - radiologic technology program director: 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 Plastic & Reconstructive Surgery [address], [address] [place] [address] OFFICE VISIT Date of Service: 02/05/25 MR#: [id number] Acct: [id number] Name: FEDE LUIS Rep #: [id number] : 1970 Provider: Dr. 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 She does not have any personal or [...] 3 Views IMPRESSION: NEGATIVE WRIST Reading Location: [facility] Coding Level of Care Code Off vis,new,level [...] first dorsal compartment release right side under Oglesby block and sedation. Patient happy with the plan. CPT codes for insurance prior authorization are as follows: 24171 02/05/25 1500 MD> Date _ Primo Alfaro MD Cosigner Signature: Date (if applicable) CC: ~ [facility]05-27-2025 Progress note Author Primo Alfaro [facility] Note Date/Time February 05, 2025 3:00p [facility] Plastic & Reconstructive Surgery [address], [address] [place], [place] [address] OFFICE VISIT Date of Service: 02/05/25 MR#: [id number] Acct: [id number] Name: FEDE LUIS Rep #: [id number] : 1970 Provider: Dr. 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 She does not have any personal or [...] 3 Views IMPRESSION: NEGATIVE WRIST Reading Location: [id number] Coding Level of Care Code Off vis,new,level [...] first dorsal compartment release right side under Oglesby block and sedation. Patient happy with the plan. CPT codes for insurance prior authorization are as follows: 35407 02/05/25 1500 <Electronically signed by Primo Alfaro MD> Date _ Primo Alfaro MD Cosigner Signature: Date (if applicable) CC: ~ [facility] Work Phone: 1(448) 780-754605-16-2025 Evaluation note* Diagnosis Onset Date Resolution Status [...] right breast acute February 27, 2025 1:04pm [facility] Work Phone: 1(745) 141-991205-09-2025 Radiology Diagnostic study note [facility] Imaging Services [address] [place] [address] Cerv Spine 2 or 3 Views MR#: [id number] Acct: [id number] Name: FEDE LUIS Rep #: [id number] : 1970 F 54 From: Lambert Hooker MD PCP: Dr. Carrillo Driscoll MD Status: REG C ADRIENNE Study:Cerv Spine 2 or 3 Views Date of Exam: 01/17/25 Exam# [id number] Ordering Dr: Namrata Moreno MD PROCEDURE: CERV [...] C4-5 on the AP view. Reading Location: [facility] CC: Dr. Jorge Alberto Moreno MD; Dr. Carrillo Driscoll MD ~ It Security Project Manager: Signed [facility]04-15-2025 Discharge summary Author Flavio Negrete [facility] Note Date/Time December 25, 2024 7:0 0pm [facility] Physical Therapy [facility] [address] [place] [address]. [address] [place] [address] / REHABILITATION SERVICES DISCHARGE SUMMARY MR#: [id number] Acct: [id number] Name: FEDE LUIS Rep #: [id number] 2 : 1970 54 From: Cert. ROQUE ChapinT, OCS Referring DrValentino: NOLAN Oden Status: REG RCR Insurance: [facility] SELF PAY INSURANCE Discharge Summary D/C summary: [...] please feel free to call me at [phone]. Thank you for the referral of thispatient. Sincerely, Flavio Negrete PT, Cert MDT, OCS Balance/Gait/Functional tests Balance/Special Test Scores CATSIB Score (Max score 120 seconds): 65 Lower Extremity Functional Score: 42 Improvement % Improvement: 20 <Electronically signed by Flavio Negrete PT Cert. MAYCOL, OCS> 01/01/25 1055 CC: NOLAN Oden; Dr. Carrillo Driscoll MD ~ JLA Signed [facility] Work Phone: 1(139) 795-242104-15-2025 Discharge summary [facility] Physical Therapy [facility] [address] [place] [address] / REHABILITATION SERVICES DISCHARGE SUMMARY MR#: [id number] Acct: [id number] Name: FEDE LUIS Rep #: [id number] : 1970 54 From: Cert. ROQUE ChapinT, OCS Referring Dr.: NOLAN Oden Status: REG RCR Insurance: [facility] SELF PAY INSURANCE Discharge Summary D/C summary: [...] please feel free to call me at [phone]. Thank you for the referral of thispatient. Sincerely, Flavio Negrete, PT, Cert MDT, OCS Balance/Gait/Functional tests Balance/Special Test Scores CATSIB Score (Max score 120 seconds): 65 Lower Extremity Functional Score: 42 Improvement % Improvement: 20 01/01/25 1055 CC: NOLAN Oden; Dr. Carrillo Driscoll MD ~ JLA Signed [facility]03-28-2025 Radiology Diagnostic study note [facility] Imaging Services [address] [place], [place] [address] Breast Limited Unilateral MR#: [id number] Acct: [id number] Name: FEDE LUIS Rep #: [id number] 4 : 1970 F 54 From: Niecy Moody MD PCP: Dr. Carrillo Driscoll MD Status: [facility] Study:Breast Limited Unilateral Date of Exam: 12/06/24 Exam# [id number] Ordering Dr: Em Hazel MD PROCEDURE: BREAST LIMITED UNILATERAL 12/06/2024 REASON FOR EXAM: RIGHT BREAST BIOPSY TECHNIQUE: Targeted right breast ultrasound. COMPARISON: Mammogram and ultrasound 11/23/2024, MRI 02/09/2024, mammogram and ultrasound 01/20/2024, blrlmokab80/23/2024. FINDINGS: The patient presented for ultrasound-guided biopsy [...] Follow-up code: 3 Month Follow-up Reading Location: [id number] CC: Dr. Carrillo Driscoll MD; Dr. Em Hazel MD ~ It Security Project Manager: Signed [facility]03-14-2025 Radiology Diagnostic study note [facility] Imaging Services [address] [place], [place] [address] Breast Limited Unilateral MR#: [id number] Acct: [id number] Name: FEDE LUIS Rep #: [id number] : 1970 F 54 From: Indio Álvarez MD PCP: Dr. Carrillo Driscoll MD Status: REG C ADRIENNE Study:Breast Limited Unilateral Date of Exam: 11/23/24 Exam# [id number] Ordering Dr: Renetta Guillory NP CONFERENCE TRANSLATOR-[facility]ami[facility] PROCEDURE: BREAST LIMITED UNILATERAL REASON FOR EXAM: [...] recommended. BI-RADS 3: PROBABLY BENIGN. Reading Location: [facility] CC: NOLAN Oden; Dr. Carrillo Driscoll MD ~ It Security Project Manager: Signed [facility]03-10-2025 Evaluation note* Diagnosis Onset Date Resolution Status [...] 2024 1:51pm History of tobacco use acute [facility] 2024 1:51pm [facility] Work Phone: [phone] Evaluation note* Diagnosis Onset Date Resolution Status [...] 2024 1:51pm History of tobacco use acute [facility] 2024 1:51pm De Quervain's tenosynovitis acute January 25, 2025 8:21am De Quervain's tenosynovitis, right acute January 25, 2025 8 :21am De Quervain's tenosynovitis, right acute February 05, 2025 2 :10pm [facility] Work Phone: [phone] Evaluation note* Diagnosis Onset Date Resolution Status [...] 2024 1:51pm History of tobacco use acute [facility] 2024 1:51pm De Quervain's tenosynovitis acute January 25, 2025 8:21am De Quervain's tenosynovitis, right acute January 25, 2025 8 :21am De Quervain's tenosynovitis, right acute February 05, 2025 2 :10pm De Quervain's tenosynovitis, right acute February 13, 2025 9 :30am [facility] Work Phone: [phone]) [phone] Evaluation note* Diagnosis Onset Date Resolution Status [...] 2024 1:51pm History of tobacco use acute [facility] 2024 1:51pm De Quervain's tenosynovitis acute January 25, 2025 8:21am De Quervain's tenosynovitis, right acute January 25, 2025 8 :21am De Quervain's tenosynovitis, right acute February 05, 2025 2 :10pm De Quervain's tenosynovitis, right acute February 13, 2025 9 :30am De Quervain's tenosynovitis, right acute February 15, 2025 8 :08am [facility] Work Phone: [phone]) [phone] Evaluation note* Diagnosis Onset Date Resolution Status [...] 2024 1:51pm History of tobacco use acute [facility] 2024 1:51pm De Quervain's tenosynovitis acute January 25, 2025 8:21am De Quervain's tenosynovitis, right acute January 25, 2025 8 :21am De Quervain's tenosynovitis, right acute February 05, 2025 2 :10pm De Quervain's tenosynovitis, right acute February 13, 2025 9 :30am De Quervain's tenosynovitis, right acute February 15, 2025 8 :08am S/P right hemicolectomy acute J [facility] 2024 8:03am [facility] Work Phone: [phone]) 610-439703-10-2025 Evaluation note* Diagnosis Onset Date Resolution Status Admit Date Breast cancer, right breast acute November 19, 2024 1:31pm Breast pain, right acute November 19, 2024 1:31pm Breast cancer, right breast acute November 27, 2024 12:49pm Breast pain, right acute November 27, 2024 12:49pm History of breast cancer acute November 30, 2024 1:04pm Mass of right breast acute [facility] 2024 1:04pm Encounter for screening for malignant neoplasm of lung acute December 04, 2024 1:51pm History of tobacco use acute [facility] 2024 1:51pm De Quervain's tenosynovitis acute January 25, 2025 8:21am De Quervain's tenosynovitis, right acute January 25, 2025 8 :21am De Quervain's tenosynovitis, right acute February 05, 2025 2 :10pm De Quervain's tenosynovitis, right acute February 13, 2025 9 :30am De Quervain's tenosynovitis, right acute February 15, 2025 8 :08am S/P right hemicolectomy acute J [facility] 2024 8:03am [facility] arthritis, thumb, degenerative acute February 22, 2025 8:58am De Quervain's tenosynovitis, right acute February 22, 2025 8:58am Breast cancer, right breast acute February 27, 2025 1:04pm [facility] Work Phone: 1([phone]) 322-872612-30-2024 NotePap Smear Specimen AdequacyDecebanner md [facility] 2023 12:59amComment.Satisfactory for evaluation. Endocervical component may not bedistinguished in cases of atrophy.[facility] INTERFACED A#[id number] Health [facility] NorthComment on above:Satisfactory for evaluation. Endocervical component may not bedistinguished in cases of atrophy.09-10-2024 NotePap Smear Specimen AdequacyDeceer 2023 12:59amComment.Satisfactory for evaluation. Endocervical component may not bedistinguished in cases of atrophy.[facility] INTER[facility]ACED A#[id number] Health [facility] Hospital NorthComment on above:Satisfactory for evaluation. Endocervical component may not bedistinguished in cases of atrophy. 08-20-2024 Evaluation note* Diagnosis Onset Date Resolution Status Admit Date Breast cancer, right breast acute August 20, 2024 1:29pm Encounter for education acute D ec2023 1:29pm Encounter for fitting and adjustment of vascular catheter acute August 22 024 1:26pm Elevated BP without diagnosi s [...] 2024 1:04pm Mass of right breast acute 2024 1:04pm Encounter for screening for malignant neoplasm of lung acute December 04, 2024 1:51pm History of tobacco use [facility] 2024 1:51pm [facility] Work Phone: [phone]) 359-723812-02-2024 Evaluation note* Diagnosis Onset Date Resolution Status Admit Date Breast cancer chronic August 11:26am Breast cancer, right breast acute August 20, 2024 1:29pm Encounter for education acute D ec2023 1:29pm Encounter for fitting and adjustment of vascular catheter acute August 22 024 1:26pm Elevated BP without diagnosi s of hypertension acute September 10 024 10:17am Breast cancer chronic September 102023 [...] 2024 1:04pm Mass of right breast acute 2024 1:04pm [facility] Work Phone: Consult note Author Bernadette Montero [facility] Note Date/Time February 13, 2025 12:35 pm [facility] Medical Records Department [address] [place] [address] Anesthesia Postop Eval I 02/13/25 1234 MR#: [id number] Acct: [id number] Name: FEDE LUIS Daljit Rep #:[id number] 6 : 1970 54 From: Bernadette Montero CRNA PCP: Dr. Carrillo Driscoll MD Status:REG S DC Y Race: C Location: [place] [address] Anesthesia: Postop Eval I Current Vital Signs [...] 02/13/25 1235 <Electronically signed by Bernadette chung CRNA> Date _ Bernadette Montero CRNA Cosigner Signature: Date CC: ~ Signed [facility] Work Phone: Consult note Author Can Steinberg [facility] Note Date/Time February 20, 2025 10:2 1am [facility] Medical Records Department [address] [address] Anesthesia Postop Eval I 02/20/25 1020 MR#: [id number] Acct: [id number] Name: FEDE LUIS Rep #:[id number] 2 : 1970 54 From: Can Steinberg PCP: Dr. Carrillo Driscoll MD Status:REG S DC Y Race: C Location: [place] [address] Anesthesia: Postop Eval I Current Vital Signs [...] Can Darden Signature: Date CC: ~ Signed [facility] Work Phone: Consult note Author Thiago Foley [facility] Note Date/Time February 20, 2025 10:5 4am [facility] Medical Records Department [address] [place] [address] Anesthesia Postop Eval II 02/20/25 1034 MR#: [id number] Acct: [id number] Name: FEDE LUIS Rep #:[id number] : 1970 54 From: Thiago Foley MD PCP: Dr. Carrillo Driscoll MD Status:REG S DC Y Race: C Location: [place] [address] Anesthesia Postop Eval I Sum Postop Eval [...] MD > Date _ Thiago Foley MD [facility] Signature: Date CC: ~ Signed [facility] Work Phone: Discharge summary Author Scot Jordangett [facility] Note Date/Time April 18, 2025 12: 18pm [facility] Medical Records Department [address] [place] [address] [place] [address] Emergency Department Summary 04/18/25 MR#: [id number] Acct: [id number] Name: FEDE LUIS Rep #:[id number] : 1970 55 From: Scot harp DO PCP: Dr. Carrillo Driscoll MD Status:REG [...] intact Psych: Cooperative, appropriate mood and affect [facility] Medical History Anemia Bilateral leg weakness History [...] but is not limitedto fracture, sprain, dislocation. Russell given for pain. X-ray of the foot [...] NO ACUTE FRACTURE OR DISLOCATION. Reading Location: [id number] Foot X-Ray 04/18/25 11:50 IMPRESSION: NO ACUTE FRACTURE OR DISLOCATION. Reading Location: [id number] Discharge Plan Triage Chief Complaint: Lower Extremity [...] MD [Primary Care Provider] - Print Language: Romanian What to do if you have Problems For any increased pain, shortness of breath, bleeding, nausea or vomiting, chestpain, or any unexpected problems, contact your Primary Care Provider. Call [facility] ([phone]) or report to the closest Emergency Room. Call 911 if necessary. 04/18/25 1218 <Electronically signed by Scot Schreiber DO> Cosigner Signature (if applicable): CC: Dr. Carrillo Driscoll MD ~ Signed [facility] Work Phone: Evaluation note* Diagnosis Onset Date Resolution Status De Quervain's tenosynovitis, left acute [facility] Work Phone: Evaluation note* Diagnosis Onset Date Resolution Status De Quervain's tenosynovitis, left acute Encounter for screening for malignant neoplasm of lung acute History of tobacco use acute [facility] Work Phone: History and physical note Author Em Hazel [facility] Note Date/Time February 20, 2025 9:16 am [facility] Medical Records Department [address] [place] [address] History & Physical Exam 02/20/2513 MR#: [id number] Acct: [id number] Name: FEDE LUIS Rep #:[id number] : 1970 54 From: Em Hazel MD PCP: Dr. Carrillo Driscoll MD Status:REG S DC Location: [place] [address] HPI - General General Date of Service: [...] polyps. Patient denies any chronic abdominal pain/nausea/vomiting/reflux. [facility] Medical History Anemia Bilateral leg weakness [...] HX of Surgeries: MICRODISCECTOMY 2003 BACK SURGERY 2004 PLATE IN [place] 2005, REMOVAL 2006 2010 REMOVAL SOFT TISSUE MASS [...] Rash Discharge Is Pt Admitted From a Custodial, or a Longterm: No After D/C, Where Do you Plan [...] Driscoll MD; Dr. Em Hazel MD~ Signed [facility] Work Phone: Hospital Discharge instructions Additional Instructions Follow-up with your painter ski edge for further management of your pain issues.[facility] Work Phone: Hospital Discharge instructionsAdditional Instructions Billy bandage for comfort. Ice and elevation as needed for swelling. Tylenol Motrin as needed for pain. Follow-up with primary care physician.[facility] [facility] Work Phone: Reason for referral (narrative)No reason for referral information [facility]: Chief Complaint and Reason for [...] PORT REMOVAL August 22, 2024 1:26pm Annual (FAMILY PHYSICIAN) September 10, 2024 10:17am 1 month follow [...] PORT REMOVAL August 22, 2024 1:26pm Annual (FAMILY PHYSICIAN) September 10, 2024 10:17am 1 month follow [...] AND NECK PAIN. RX HERE February 26, 2 025 9:48am 3 MO - LABS February 27, [...] 8:58am Breast cancer, right breast February 27 025 1:04pm Chief Complaint Admit Date BILATERAL LEG [...] 8:58am Breast cancer, right breast February 27, 025 1:04pm Chief Complaint Admit Date Radiculopathy, [...] May 01, 2025 1: 53pm Family History No Family History Records Found Relationship Condition Age at Onset Recorded Date/T janelel mother Diabetes mellitus Unknown Unknown Anemia Unknown Hypertension Unknown grandfather Diabetes mellitus Unknown Cerebrovascular accident (CVA) Unknown aunt Malignant neoplasm of breast Unknown grandmother Unknown Relationship Condition Age at Onset Recorded Date/T janelle mother Diabetes mellitus Unknown Unknown Anemia Unknown Hypertension Unknown grandfather Diabetes mellitus Unknown Cerebrovascular accident (CVA) Unknown grandmother Unknown Advance Directives No Advanced Directives Records Found Advance Directive Response Recorded Date/ Time Advance Directives No December 12 8:24am Living Will No July 16 2:13pm Power of [employer] No July 16, 2022 2:13pm Advance Directive Response Recorded Date/ Time Advance Directives No December 12 7:24am Living Will No July 16 1:13pm Power of [employer] No July 16, 2022 1:13pm Advance Directive Response Recorded Date/ Time Living Will Yes June 28 10:37am Do you have a Healthcare Power of [employer]? Yes June 28, 2024 10:37am Advance Directives on File No Octob er 2023 10:37am Name of Medical Power of [employer] [facility] Andra June 28, 2024 10:37am Advance Directives Yes June 28, 2024 10:37am Advance Directive Response Recorded Date/ Time Advance Directives on File No Octob er 2023 10:37am Living Will Yes June 28 10:37am Do you have a Healthcare Power of [employer]? Yes June 28, 2024 10:37am Name of Medical Power of [employer] [facility] Andra June 28, 2024 10:37am Advance Directives Yes June 28, 2024 10:37am Advance Directive Response Recorded Date/ Time Advance Directives Yes January 24 10:04am Advance Directives on File No Octob er 2023 10:37am Living Will Yes June 28 10:37am Do you have a Healthcare Power of [employer]? Yes June 28, 2024 10:37am Name of Medical Power of [employer] [facility] Andra June 28, 2024 10:37am Advance Directive Response Recorded Date/ Time Advance Directives Yes January 25 9:06am Advance Directives on File No Octob er 2023 10:37am Living Will Yes June 28 10:37am Do you have a Healthcare Power of [employer] [facility]? Yes June 28, 2024 10:37am Name of Medical Power of [employer] [facility] Andra June 28, 2024 10:37am Advance Directive Response Recorded Date/ Time Advance Directives Yes January 25 9:06am Do you have a Healthcare Power of [employer]? Yes February 07, 2025 11:17am Advance Directives on File No Octob er 2023 10:37am Living Will Yes June 28 10:37am Do you have a Healthcare Power of [employer] [facility]? Yes June 28, 2024 10:37am Name of Medical Power of [employer] [facility] Andra June 28, 2024 10:37am Advance Directive Response Recorded Date/ Time Advance Directives Yes January 25 9:06am Do you have a Healthcare Power of [employer] [facility]? Yes February 07, 2025 11:17am Advance Directives on File No Octob er 2023 10:37am Living Will Yes June 28 10:37am Do you have a Healthcare Power of [employer] [facility]? Yes June 28, 2024 10:37am Name of Medical Power of [employer] [facility] Andra June 28, 2024 10:37am Do you have a Healthcare Power of [employer] [facility]? Yes February 07, 2025 11:28am Advance Directive Response Recorded Date/ Time Advance Directives Yes January 25 9:06am Do you have a Healthcare Pow er of [employer]? Yes February 07, 2025 11:17am Advance Directives on File No Octob er 2023 10:37am Living Will Yes June 28 10:37am Do you have a Healthcare Pow er of [employer]? Yes June 28, 2024 10:37am Name of Medical Power of [employer] [facility] Andra June 28, 2024 10:37am Do you have a Healthcare Pow er of [employer] [facility]? Yes February 07, 2025 11:28am Do you have a Healthcare Pow er of [employer] [facility]? Yes April 18, 2025 11:26am Name of Medical Power of [employer] [facility] Pradip Thornton- sister April 18, 2025 11:26am [...] Care Provider, Referring Provider Active Renetta Oden CONFERENCE TRANSLATOR, CONFERENCE TRANSLATOR-C Attending Provider Active Team Status: Inactive Member Role Status Dates Dr. Carrillo Driscoll MD Primary Care Provider Active Renetta Oden CONFERENCE TRANSLATOR, CONFERENCE TRANSLATOR-C Attending Provider, Referring Provider Active Team Status: Inactive Member Role Status Dates Dr. Carrillo Driscoll MD Primary Care Provider, Attending Provider Active Team Status: Active Member Role Status Dates Dr. Carrillo Driscoll MD Primary Care Provkayla rufina, Attending Provider, Referring Provider Active Team Status: Inactive Member Role Status Dates Dr. Carrillo Driscoll MD Primary Care Provkayla rufina, Attending Provider, Referring Provider Active Team [...] 2024 End: August 20, 2024 Renetta Oden NP, CONFERENCE TRANSLATOR-C Attending Provider Active Start: August 20, 2024 [...] September 10, 2024 End: September 10, 2024 PEDRO NavarroC Attending Provider Active Start: September 10, 2024 [...] End: November 19, 2024 Renetta Oden NP CONFERENCE TRANSLATOR-C Attending Provider Active Start: November 19, 2024 [...] 23, 2024 End: November 23, 2024 Renetta Oden CONFERENCE TRANSLATOR, CONFERENCE TRANSLATOR-C Attending Provider Active Start: November 23, 2024 End: November 23, 2024 Renetta Oden CONFERENCE TRANSLATOR, CONFERENCE TRANSLATOR-C Referring Provider Active Start: November 23, 2024 End: November 23, 2024 Team Status: Inactive Member Role Status Dates Dr. Carrillo Driscoll MD Primary Care Provider Active Start: November 27, 2024 End: November 27, 2024 Dr. Carrillo Driscoll MD Referring Provider Active Start: November 27, 2024 End: November 27, 2024 Renettanamrata PoeAkshat CONFERENCE TRANSLATOR, CONFERENCE TRANSLATOR-C Attending Provider Active Start: November 27, 2024 End: November 27, 2024 Team Status: Active Member Role Status Dates Dr. Carrillo Driscoll MD Primary Care Provider Active Start: November 29, 2024 Renetta Akshat CONFERENCE TRANSLATOR, CONFERENCE TRANSLATOR-C Attending Provider Active Start: November 29, 2024 Renetta Akshat CONFERENCE TRANSLATOR, CONFERENCE TRANSLATOR-C Referring Provider Active Start: November 29, 2024 [...] 2024 End: December 04, 2024 Renetta Akshat CONFERENCE TRANSLATOR, CONFERENCE TRANSLATOR-C Attending Provider Active Start: December 04, 2024 End: December 04, 2024 Team Status: Inactive Member Role Status Dates Dr. Carrillo Driscoll MD Primary Care Provider Active Start: December 04, 2024 End: December 04, 2024 Renetta Akshat CONFERENCE TRANSLATOR, CONFERENCE TRANSLATOR-C Attending Provider Active Start: December 04, 2024 End: December 04, 2024 Renetta Akshat CONFERENCE TRANSLATOR, CONFERENCE TRANSLATOR-C Referring Provider Active Start: December 04, 2024 [...] Provider Active Start: December 11, 2024 Renetta Oden CONFERENCE TRANSLATOR, CONFERENCE TRANSLATOR-C Attending Provider Active Start: December 11, 2024 Renetta Oden CONFERENCE TRANSLATOR, CONFERENCE TRANSLATOR-C Referring Provider Active Start: December 11, 2024 Dr. Jorge Alberto Moreno MD Other Provider Active Star t: December 11, 2024 Team Status: Inactive Member Role Status Dates Dr. Carrillo Driscoll MD Primary Care Provider Active Start: December 25, 2024 End: December 25, 2024 Renetta Oden CONFERENCE TRANSLATOR, CONFERENCE TRANSLATOR-C Attending Provider Active Start: December 25, 2024 End: December 25, 2024 Renetta Oden CONFERENCE TRANSLATOR, CONFERENCE TRANSLATOR-C Referring Provider Active Start: December 25, 2024 [...] 15, 2025 End: February 15, 2025 Dr. Prmio Alfaro MD Attending Provider Active Start: February [...] 2025 End: February 27, 2025 Renetta Oden CONFERENCE TRANSLATOR, CONFERENCE TRANSLATOR-C Attending Provider Active Start: February 27, 2025 [...] 2024 End: December 25, 2024 Renetta Oden NP CONFERENCE TRANSLATOR-C Attending Provider Active Start: December 25, 2024 End: December 25, 2024 Renetta Oden NP CONFERENCE TRANSLATOR-C Referring Provider Active Start: December 25, 2024 [...] January 25, 2025 End: January 25, 2025 Parisa Chavez NP-C Attending Provider Active Start: January 25, 2025 [...] 2025 End: February 27, 2025 Renetta Oden CONFERENCE TRANSLATOR, CONFERENCE TRANSLATOR-C Attending Provider Active Start: February 27, 2025 [...] 2025 End: February 27, 2025 Renetta Oden CONFERENCE TRANSLATOR, CONFERENCE TRANSLATOR-C Attending Provider Active Start: February 27, 2025 [...] Referring Provider Active Start: May 01, 2025 Team Status: Inactive Member Role/Relationship Status Dates Dr. Carrillo Driscoll MD Primary Care Provider Active Start: April 12, 2025 End: April 12, 2025 Dr. Carrillo Driscoll MD Attending Provider Active Start: April 12, 2025 End: April 12, 2025 Team Status: Active Member Role/Relationship Status Dates Dr. Carrillo Driscoll MD Primary Care Provider Active Start: May 01, 2025 Dr. Naveen Talavera MD Attending Provider Active S tart: May 01, 2025 INFORMATION SOURCE (unrecogn ized section and content) DATE CREATED AUTHOR 05/05/2025 [facility] FOR RECORDS PERTAINING TO PATIENTS WHO [...] BE BASED ON THE PRIMARY CLINICAL RECORDS. [employer] provides no warranty or guarantee of the accuracy or completeness of information in this document.
--- NOTE | 2025-05-07 08:52 | NEURO ---
NCS and/or EMG Patient Report Ordering Doctor: Carrillo Driscoll Chi DATE OF SERVICE: 05/07/25 Clinical Summary: 55 year old female patient with symptoms of numbness, tingling, and fatigue/weakness in the lower extremities. She has a history of lower back surgery. She also underwent chemotherapy last year for cancer. Nerve Conduction Studies Summary: Nerve conduction studies were performed in the lower extremities. The left sural distal latency was proloned. The left peroneal-EDB CMAP distal latency was prolonged. The left peroneal motor conduction velocities were reduced. The left peroneal and bilateral tibial F-wave onset latencies were prolonged. Needle Examination Summary: Needle examination of select muscles of the bilateral lower extremities was performed. There were reduced motor unit firing rates seen in the medial gastrocnemius, peroneus longus, and flexor digitorum longus muscles, bilaterally. Otherwise, needle examination of the sampled muscles was normal. Impression: There is no electrodiagnostic evidence of a large-fiber peripheral polyneuropathy or myopathic process. There is no definite electrodiagnostic evidence of a right/left lumbosacral radiculopathy. Multi Select Codes Neurology Neurology Interp Codes: 63512-81 Musc test done w/n test comp (interp) (2) and 67057-29 Nrv cndj test 7-8 studies (interp)
== END | disposition home or self-care (01) ==
LOC: PSN 07:01
PROVIDERS: PCP Family Medicine Geriatric Medicine; Referring Provider Family Medicine Geriatric Medicine; Visit Provider Family Medicine Geriatric Medicine
DX: R06.02 Shortness of breath (principal); M79.2 Neuralgia and neuritis, unspecified; R20.0 Anesthesia of skin; R29.898 Other symptoms and signs involving the musculoskeletal system
CPT/HCPCS: 95886; 95910

== ENCOUNTER → 2025-06-07 | Outpatient (CLI) | payer MEDICAID, SELFPAY ==
[2025-06-07 13:16] LABS: Pro- Brain NATRIURETIC PEPTIDE < 36 pg/mL (<=900)
== END | disposition home or self-care (01) ==
LOC: LAB 11:40
PROVIDERS: PCP Family Medicine Geriatric Medicine; Referring Provider Internal Medicine Cardiovascular Disease; Visit Provider Internal Medicine Cardiovascular Disease
DX: R06.02 Shortness of breath (principal)
CPT/HCPCS: 36415; 83880

== ENCOUNTER → 2025-07-19 | Outpatient (CLI) | payer MEDICAID, SELFPAY | END | disposition home or self-care (01) | LOC: CVS 09:53 | PROVIDERS: PCP Family Medicine Geriatric Medicine; Referring Provider Student in an Organized Health Care Education/Training Program; Visit Provider Student in an Organized Health Care Education/Training Program | DX: R06.09 Other forms of dyspnea (principal) | CPT/HCPCS: 93017 ==

== ENCOUNTER → 2025-08-29 | Outpatient (CLI) | payer MEDICAID, SELFPAY ==
--- NOTE | 2025-08-29 09:30 | BI_ITS ---
EXAM: DIAG MAMM W/CAD, UNILAT 08/29/2025 CLINICAL HISTORY: F, Age 55 y/o , RIGHT BREAST BIRADS 3 FOLLOW UP; H/O BREAST CA. TECHNIQUE: Procedure Code: [id number] Modality: MG Procedure: DIAG MAMM W/CAD, UNILAT. COMPARISON: Prior exam(s) dated February 11, 2025.. FINDINGS: TISSUE DENSITY: There are scattered areas of fibroglandular density. Bilateral Breast Mammographic Findings: No significant masses, calcifications or other abnormalities are identified. Once again, the patient is status post lumpectomy in the deep upper lateral aspect of the right breast with resultant postoperative changes and overlying skin thickening. No suspicious masses, areas of developing architectural distortion, or suspicious calcifications. There has been no significant interval change. BI/DIAG MAMM W/CAD, UNILAT IMPRESSION: Stable unilateral mammogram following lumpectomy in the deep upper lateral aspe ct of the right breast. OVERALL FINAL ASSESSMENT BI-RADS 2: BENIGN RECOMMENDATION: Routine annual follow-up in 1 Year Additional Recommendation none A letter with findings and recommendations will be mailed to the patient. Reading Location: [facility]
== END | disposition home or self-care (01) ==
LOC: OPBI 09:12
PROVIDERS: PCP Family Medicine Geriatric Medicine; Referring Provider Nurse Practitioner Family; Visit Provider Nurse Practitioner Family
DX: R92.8 Other abnormal and inconclusive findings on diagnostic imaging of breast (principal); Z85.3 Personal history of malignant neoplasm of breast
CPT/HCPCS: 77061; 77065; G0279